=== PATIENT | male | born 1955 | race Caucasian/White ===

== ENCOUNTER → 2016-12-02 | Outpatient (CLI) | payer OTHER ==
[~2016-12-02] MED LIST: ATRINS INH; ATV5X PO; CRDCD120 PO; DESL1TAB5 PO; DILT120C68 PO; DOXY100C76 PO; DXY100 PO; FURO40TA3 PO; IPRA1AER2 INH; IPRASOL4 INH; LEVO-459 PO; OXGN; OXYC-57 PO; POTA10TA PO; SACC250C11 PO; SERT50TA PO; UMEC1AER INH; XPNINS1255 INH
[2016-12-02 15:03] LABS: ARTERIAL BLD GAS O2 SATURATION 93.9 % (90-95); ARTERIAL BLOOD GAS BASE EXCESS 6.9 mEq/L (-9-1.8); ARTERIAL BLOOD GAS HCO3 34 mmol/L (19-24); ARTERIAL BLOOD GAS PO2 72 mm/Hg (80-95); ARTERIAL BLOOD GAS pH 7.36 (7.35-7.45)
[2016-12-02 15:21] LABS: ALLEN TEST POS (POS); O2 ADMINISTRATION 2L
== END | disposition home or self-care (01) ==
LOC: C.LAB 13:59
PROVIDERS: ATTEND Registered Nurse
DX: J44.9 Chronic obstructive pulmonary disease, unspecified (principal); J96.11 Chronic respiratory failure with hypoxia; J96.12 Chronic respiratory failure with hypercapnia; R91.8 Other nonspecific abnormal finding of lung field

== ENCOUNTER → 2016-12-20 | Outpatient (CLI) | payer OTHER ==
--- NOTE | 2016-12-21 05:33 | PAP/PSG TECHNICIAN REPORT ---
[facility] Manager Zone Polysomnogram Report Study name: None Report date: 12/21/2016 Study date: 12/20/2016 Referring Physician: SANAM GONZALEZ Name: JOY MCKEON Interpreting Physician: Isaias Jordan M.D. Date of : 1955 Manager Zone: Sophia Gregory [facility]. Sex: Male Age: 61 Study Type: PSG Weight: 227 lbs Height: 61 years, Height 6' 4" BMI: 27.63 Medications: LORAZEPAM 1 MG, SERTRALINE 50 MG, DOXYCYCLINE MONOHYDRATE 100 MG, FUROSEMIDE 40 MG, ANORA ELLIPTA 62.5-25 MCG/INH, CARDIZEM 120 MG, PROBIOTIC, ATROVENT, LEVALBUTEROL 1.25 MG/3 ML, HUMIBID 600 MG, COMBIVENT RESPIMAT 20-100 MCG/ACT, POTASSIUM CHLORIDE 10 MEQ, O2 @ 2-3 LPM Patient History 61 yr-old male here for a baseline/split study. He has a history of severe COPD, SOB with minimal exertion, and nocturnal hypoxemia. His Rankin scale is 4. The test was started on 3 LPM O2. He had the head of the bed elevated in order to breathe more comfortably. ETCO2 testing is included in this study. Room 7 Parameters Monitored NPSG: E1-M2, E2-M1, Fp1-M2, Fp2-M1, F3-M2, F4-M2, F4-M1, C3-M2, C4-M2, C4-M1, O1-M2, O2-M2, O2-M1, T3-M2, T4-M1, P3-M2, P4-M1, CHIN1, CHIN2, HR, EKG, Legs, PFLOW, SNOR, FLOW, CFLOW, Tidal Volume, THOR, ABDO, SpO2, PLTH, CPRESS, ETCO2 Wave, ETCO2, pH Sleep Architecture Sleep Stages Time at Lights Off 9:07:04 PM STAGES Time (min.) TST (%) Time at Lights On 5:01:04 AM Wake 203.0 -- Total Recording Time (TRT) 474.00 min. N1 191.0 70 Total Sleep Period (TSP) 439.5 min. N2 74.5 27 Total Sleep Time (TST) 271.0min. N3 0.0 0 Awake Time 203.0 min. REM 5.5 2 Wake after Sleep Onset 170.5 min. Sleep Efficiency (SE) 57 % Sleep Onset Latency (EDGARDO) 32.5 min. Number of Stage 1 Shifts None Awakenings 63 Stage Changes 206 Number of REM periods 3 REM 5.5 2 REM Latency 364.5 min. NREM 265.5 98 Body Position Analysis Supine Right Left Side Prone Vertical Total Sleep Time (min.) 474.0 0.0 0.0 0.00 0.0 0.0 Total Sleep Time (%) 100% 0% 0% 0 0% N/A% Total Sleep Time REM (min.) 5.5 0.0 0.0 None 0.0 0.0 Total Sleep Time NREM (min.) 265.5 0.0 0.0 None 0.0 0.0 Intermittent Wake (min.) 203.0 0.0 0.0 None 0.0 0.0 Total Sleep Period (%) 100% None None None None None Arousals Myoclonus (PLM) * Events Count Index Events Count Index Spontaneous 136 30 Events Awake (PLMW) 110 32.5 Respiratory 16 3.8 Events Asleep w/ Arousal (PLMA) 31 6.9 PLM 31 7 Events Asleep w/o Arousal (PLMS) 146 32.3 Snoring 30 7 Total Asleep 177 39.2 Total 212 47 Total 287 36 Respiratory Analysis * CA OA MA CH H RERA Total Count 0 0 0 0 0 17 0 Index 0.0 0.0 0.0 0 0.0 4 3.8 Mean Duration 0.0 0.0 0.0 0.00 0.0 15.7 15.7 Longest Duration 0.0 0.0 0.0 0.00 0.0 18.2 18.2 Respiratory Event Summary Total Supine ~Supine Right Left Prone REM NREM Apneas Count 0 0 N/A N/A N/A N/A 0 0 Index 0.0 0 N/A N/A N/A N/A 0 0 Hypopneas (4% Desat) Count 0 0 N/A N/A N/A N/A 0 0 Index 0.0 0.0 N/A N/A N/A N/A 0.0 0.0 Apneas & All Hypopneas Count 0 0 N/A N/A N/A N/A 0 0 Index 0.0 0 N/A N/A N/A N/A 0.0 0.0 Respiratory Events (Box Sealing Machine Catcher+All Hyp+RERA) Count 0 17 N/A N/A N/A N/A 0 0 Index 3.8 4 N/A N/A N/A N/A 10.9 3.6 Respiratory Related Arousal Count 16 17 N/A N/A N/A N/A 1 16 Index 3.8 4 N/A N/A N/A N/A 11 4 Snoring Analysis Supine Right Left Prone REM NREM Total Snore duration 10.6 min Snores count 537 N/A N/A N/A 5 532 537 Snore mean duration 1.2 Sec Snores index 119 N/A N/A N/A 54.5 120.2 118.9 TST with snoring (%) 3.9% SpO2 Analysis Total REM NREM Awake <50% 0.0 min. 0.0 min. 0.0 min. 0.0 min. 51 - 60% 0.0 min. 0.0 min. 0.0 min. 0.0 min. 61 - 70% 0.0 min. 0.0 min. 0.0 min. 0.0 min. 71 - 80% 2.6 min. 0.0 min. 0.9 min. 1.7 min. 81 - 90% 24.3 min. 2.9 min. 8.6 min. 12.8 min. 91 - 100% 404.1 min. 2.6 min. 255.2 min. 146.4 min. Average 93 89 93 93 Minimum SpO2 71 85 71 71 Desaturation Event Index 1.3 0.0 0.7 2.1 # Desat. Events below 89% 1 N/A N/A 1 Time(%) with Saturation below 89% 2.5 0.4 0.7 1.4 Time(min.) with Saturation below 89% 10.9 1.9 2.9 6.1 Heart Rate Analysis End Tidal CO2 Analysis Min (bpm) Max (bpm) Average (bpm) TSP (mins) % of TSP Awake 73 188 96 Above 55 mmHg 0.0 0.0 NREM 68 127 88 50-55 mmHg 0.0 0.0 REM 71 93 81 45-50 mmHg 4.9 1.8 Overall 68 127 88 40-45 mmHg 10.7 3.9 35-40 mmHg 21.6 8.0 30-35 mmHg 74.2 27.4 Average ETCO2 0.1 Supplemental O2 Values Minimum O2 level: None Value Start Time End Time Manager Zone Comments Mr. Mckeon slept in the supine position with his head elevated. Cardiac arrhythmias were noted (please refer to the printout) PLMs were noted. No bruxism noted. Snoring was noted and scored as a 1-2 on a scale of 1 through 5. (0=no snoring, 5=snoring loud enough to be heard through a closed door or down the oro way) He did not meet specific Split-Night criteria during the diagnostic portion of this study. He awoke to use the restroom four times during the night. Mr. Mckeon stated that he slept about the same as usual. The final report will be interpreted and signed by a sleep physician. The completed physician report will then be placed in the patient medical record. His study was started on 3 LPM O2. He currently uses 3 LPM O2 at bedtime, and did not want to go without it. He was short of breath with any kind of movement. Therapy (cm H2O) 0 TIB (min.) 474.0 TST (min.) 271.0 Sleep Onset (min.) 32.5 REM Onset From Sleep (min.) 364.5 Sleep Efficiency % 57 Wakefulness (%) 43 Wakefulness (min.) 203.0 NREM 1 (%) 70 NREM 1 (min.) 191.0 NREM 2 (%) 27 NREM 2 (min.) 74.5 NREM 3 (%) 0 NREM 3 (min.) 0.0 REM (%) 2 REM (min.) 5.5 # Arousals 212 Arousal Index 47 # Snore 537 Snore Index 118.9 AHI 0.0 AHI Supine 0 AHI Non-Supine N/A NREM AHI 0.0 REM AHI 0.0 RDI 3.8 # Obstructive Apnea 0 # Central Apnea 0 # Mixed Apnea 0 # Hypopneas 0 RERAs 17 Total Respiratory Events 18 Time Below SpO2 89% (min.) 4.9 Mean NREM SpO2 (%) 93 Mean REM SpO2 (%) 89 Mean Sleep SpO2 (%) 93 Min NREM SpO2 (%) 71 Min REM SpO2 (%) 85 Position Supine (min.) 474.0 Position Non-supine (min.) 0.0 LM Index Sleep 39.2 LM Index NREM 38.9 LM Index REM 54.5 Mean Heart Rate (bpm) 88 Min Heart Rate (bpm) 68
--- NOTE | 2016-12-26 11:46 | POLYSOMNOGRAPH REPORT ---
REFERRING PERSON: Ariadna Mcfadden. INTERPRETING PHYSICIAN: Dr. Isaias Jordan. DIRECTOR CHILD ABUSE THERAPY: Sophia Gregory. Mr. Kennedy is a 61-year-old male sent for a baseline split night sleep study. He has a history of severe COPD, shortness of breath with minimal exertion, as well as nocturnal hypoxemia. He currently uses 3 liters of oxygen continuously and will be tested on 3 liters of oxygen tonight. The head of his bed is also elevated to help him breathe more comfortably. The [place] sleepiness scale score on the evening of this study is 4. BMI is 27.63. Following the technical and digital specifications of the [employer] (AASM) a standard diagnostic polysomnogram was performed monitoring EEG, EOG, EMG (chin and leg deviations), oxygen saturation, body position, digital video, respiratory effort and airflow. The sleep Stage and event scoring was based on the AASM Manual for the Scoring of Sleep and Associated Events 2007 edition. Apneas are defined as a drop in the peak thermal sensor excursion by >90% of baseline for at least 10 seconds. Hypopneas were scored using the 4% oxygen desaturation rule (4A-[employer]) and a decrease in the nasal pressure excursions by >30% of baseline for at least 10 seconds. Respiratory effort-related arousal (RERA's) is defined as a sequence of breaths lasting at least 10 seconds characterized by increasing respiratory effort or flattening of the nasal pressure waveform leading to an arousal from sleep when the sequence of breaths does not meet criteria for an apnea or hypopnea. Apnea Hypopnea index (AHI) is defined as the number of apneas and hypopneas occurring in an hour of sleep. Respiratory disturbance index (RDI) is defined as the number of apneas, hypopneas, and RERA's occurring in an hour of sleep. Mr. Kennedy's total sleep period time was 439.5 minutes. Total sleep time was 271 minutes. Sleep efficiency was 57%. Latency to sleep onset was 32.5 minutes. Wake after sleep onset was 170.5 minutes. Total non-REM sleep time was 265.5 minutes. He spent 70% of that time in N1 sleep, 27% in N2 sleep and no time in N3 sleep. This is abnormal non-REM sleep architecture with a propensity for superficial sleep. REM latency was 364.5 minutes. Total REM sleep time was only 5.5 minutes or 2% of total sleep time. There were 212 cortical arousals from sleep. 136 of these arousals were spontaneous, 16 were due to respiratory events, 31 due to periodic limb movements of sleep and 30 were due to snoring. There were 177 periodic limb movements noted on this test. Limb movement index was 39.2; however, limb movement with arousal index was only 6.9. There were no central obstructive or mixed apneas on this test. There were 17 RERA and no hypopnea. Apnea-hypopnea index was 0 on 3 liters of oxygen. There were 537 snoring events recorded. Total sleep time with snoring was 3.9%. Mean saturation on this study was 93% with desaturations to 71%, but most of these desaturations below 89% appeared to be artifactual. Desaturations were recorded as less than 89% on 3 liters for 10.9 minutes. Again, I believe most of this to be artifactual. PACs and PVCs were noted on EKG monitoring. Heart rates ranged from a low of 68 beats per minute to a high of 127 beats per minute during sleep. End-tidal CO2 data was inaccurate and incomplete. IMPRESSION AND PLAN: Mr. Kennedy is a 61-year-old male who on 3 liters of oxygen, does not have sleep disordered breathing, parasomnia, clinically significant periodic limb movements of sleep or bruxism. He does have some mild nocturnal hypoxemia which on 3 liters I believe to be artifactual. It does appear that 3 liters does keep his saturations above 89%.
== END | disposition home or self-care (01) ==
LOC: C.NEUR 20:00
PROVIDERS: ATTEND Family Medicine
DX: J44.9 Chronic obstructive pulmonary disease, unspecified (principal); G47.36 Sleep related hypoventilation in conditions classified elsewhere; Z99.81 Dependence on supplemental oxygen

== ENCOUNTER 2017-05-24 10:28 | Day surgery (SDC) | payer OTHER ==
[2017-05-18 08:21] VITALS: BMI 29.0
--- NOTE | 2017-05-18 09:03 | PAT Medication Instructions ---
Service Date May 18, 2017. Current Home Medication List Desloratadine (Desloratadine), 5 MG PO QAM Diltiazem Hcl Ext Rel (Tiazac), 120 MG PO BID Doxycycline Monohydrate (Monodox), 100 MG PO QAM Furosemide (Lasix), 40 MG PO QAM Home O2 Therapy (Oxygen), 2 LITERS NA CONTINOUS Ipratropium Aultman (Ipratropium Aultman), 0.5 MG INH Q4H PRN for Shortness of Breath Ipratropium-Albuterol (Combivent Respimat), 1 PUFFS INH QID PRN for SOB/Wheezing Ipratropium-Albuterol (Duoneb), 1 TREATMENT INH Q4H PRN for SOB/Wheezing Lorazepam (Lorazepam), 0.5 MG PO QID PRN for Anxiety Potassium Chloride (K-Tabs), 10 MEQ PO QAM Saccharomyces Boulardii (Probiotic), 1 CAP PO QAM Sertraline (Zoloft), 50 MG PO HS Umeclidinium-Vilanterol (Anoro Ellipta 62.5-25 Mcg/INH), 1 PUFF INH QAM Medication Instructions For Your Scheduled Surgery - Hold the following medications the morning of surgery: Saccharomyces Boulardii (Probiotic), 1 CAP PO QAM Potassium Chloride (K-Tabs), 10 MEQ PO QAM Furosemide (Lasix), 40 MG PO QAM Desloratadine (Desloratadine), 5 MG PO QAM - Take the following medications the morning of surgery with a sip of water: Umeclidinium-Vilanterol (Anoro Ellipta 62.5-25 Mcg/INH), 1 PUFF INH QAM Ipratropium-Albuterol (Combivent Respimat), 1 PUFFS INH QID PRN for SOB/ Wheezing (if needed) Ipratropium-Albuterol (Duoneb), 1 TREATMENT INH Q4H PRN for SOB/Wheezing (if needed) Lorazepam (Lorazepam), 0.5 MG PO QID PRN for Anxiety (if needed) Ipratropium Aultman (Ipratropium Aultman), 0.5 MG INH Q4H PRN for Shortness of Breath (if needed) Home O2 Therapy (Oxygen), 2 LITERS NA CONTINOUS (if needed) Diltiazem Hcl Ext Rel (Tiazac), 120 MG PO BID Doxycycline Monohydrate (Monodox), 100 MG PO QAM (for lymphedema) - Take the following medications as scheduled the night before surgery: Sertraline (Zoloft), 50 MG PO HS Ipratropium-Albuterol (Combivent Respimat), 1 PUFFS INH QID PRN for SOB/ Wheezing (if needed) Ipratropium-Albuterol (Duoneb), 1 TREATMENT INH Q4H PRN for SOB/Wheezing (if needed) Lorazepam (Lorazepam), 0.5 MG PO QID PRN for Anxiety (if needed) Ipratropium Aultman (Ipratropium Aultman), 0.5 MG INH Q4H PRN for Shortness of Breath (if needed) Home O2 Therapy (Oxygen), 2 LITERS NA CONTINOUS (if needed) If you have any questions please call us at [phone] or [phone] or [phone]
--- NOTE | 2017-05-18 11:03 | DIAGNOSTIC IMAGING REPORT ---
CHEST PREADMISSION(PA/LAT) HISTORY: Preop. COMPARISON: Chest 06/12/2016. Chest 06/03/2016. FINDINGS: Emphysema. No pneumothorax. Stable blunting of the bilateral costophrenic sulci. This may be due to the hyperexpanded lungs. Stable 1.2 cm left midlung zone nodular density. The heart is normal in size. The right lung remains clear. IMPRESSION: 1. No acute process within the chest. 2. Severe emphysema. 3. Stable 1.2 cm nodular density within the left midlung zone. This demonstrates one-year stability. An additional 6 month follow-up chest CT is recommended to ensure stability. Electronically signed by: Ravinder Dyson M.D. 05/18/2017 11:02 AM Dictated Date/Time: 05/18/2017 10:59 AM
[~2017-05-24] VITALS: Ht 193 cm; Wt 109.5 kg
[~2017-05-24 10:28] MED LIST changes: +CEFAZOLIN 2000 MG/60 ML D5W IV SCH; -CRDCD120 PO; -DXY100 PO; +LACTATED RINGER'S 1000ML 1,000 ML IV SCH; -LEVO-459 PO; -OXYC-57 PO; -XPNINS1255 INH
--- NOTE | 2017-05-24 11:05 | History & Physical Bridge Note ---
H&P Re-Evaluation Bridge Note: I have examined the patient, reviewed the History & Physical and in the interval since the performance of the History & Physical I have noted the following changes of clinical significance: No changes noted
[2017-05-24 11:11] VITALS: BP 125/80; PULSE 95; TEMP 36.7; O2SAT 98; Ht 193 cm; Wt 109.5 kg
[2017-05-24] MEDS ORDERED: BACITRACIN OINT 15 GM TUBE ONE (11:23)
[2017-05-24] MEDS ORDERED: LIDOCAINE HCL 1% 20 ML VIAL ONE (11:23)
[2017-05-24] MEDS ORDERED: BUPIVACAINE 0.5 % 5 MG/1 ML MPF 30ML VIAL ONE (11:23)
[2017-05-24] MEDS ORDERED: LIDOCAINE HCL 2% 2 ML VIAL (20MG/ML) ONE (11:30)
[2017-05-24] MEDS ORDERED: MIDAZOLAM HCL 1 MG/ML 2ML VIAL ONE (11:30)
[2017-05-24] MEDS ORDERED: FENTANYL CITRATE INJ 50 MCG/1 ML 2 ML VIAL ONE (11:30)
[2017-05-24] MEDS ORDERED: PROPOFOL IV EMULSION 10 MG/ML 20 ML VIAL IV ONE (11:30)
[2017-05-24] MEDS ORDERED: KETAMINE HCL INJ 50 MG/ML 10 ML VIAL ONE (11:31)
[2017-05-24] MEDS ORDERED: ATROPINE SULFATE 0.1 MG/ML 5ML SYR IV PRN (13:15)
[2017-05-24] MEDS ORDERED: FLUMAZENIL 0.1 MG/1 ML 10 ML VIAL IV PRN (13:15)
[2017-05-24] MEDS ORDERED: ONDANSETRON INJ 2 MG/ML 2 ML VIAL IV PRN ×2 (13:15→13:30)
[2017-05-24] MEDS ORDERED: NALOXONE HCL 0.4 MG/1 ML VIAL/CARP IV PRN (13:15)
[2017-05-24] MEDS ORDERED: FENTANYL CITRATE INJ 50 MCG/1 ML 2 ML VIAL IV PRN (13:15)
[2017-05-24] MEDS ORDERED: PROMETHAZINE HCL INJ 12.5 MG in SODIUM CHLORIDE 0.9% 50ML 50 ML IV PRN (13:15)
[2017-05-24] MEDS ORDERED: EpHEDrine SULFATE INJ 50 MG/ML AMP IV PRN (13:15)
[2017-05-24] MEDS ORDERED: LABETALOL HCL IV 5 MG/ML 20ML IV PRN (13:15)
[2017-05-24] MEDS ORDERED: SODIUM CHLORIDE 0.9% INJ 10 ML VIAL ONE (13:17)
[2017-05-24] MEDS ORDERED: ONDANSETRON INJ 2 MG/ML 2 ML VIAL ONE (13:18)
[2017-05-24] MEDS ORDERED: OXYC-57 PO (13:19)
--- NOTE | 2017-05-24 13:20 | [facility] Post Operative Brief Note ---
Immediate Operative Summary Operative Date May 24, 2017. Pre-Operative Diagnosis Right inguinal hernia Post-Operative Diagnosis Right inguinal hernia Procedure(s) Performed Open Repair Right Inguinal Hernia with Mesh Surgeon Paresh Sand Technician Surgeon(s) Barbara Weston PA-C Estimated Blood Loss 10CC Findings right indirect inguinal hernia Fluids (cc crystalloids) 600ml Specimens A: Lipoma Drains none Anesthesia sedation + local Complication(s) None Disposition Recovery Room / PACU
--- NOTE | 2017-05-24 13:23 | Discharge Instructions ---
Discharge Instructions Date of Service May 24, 2017. Admission Reason for Admission: Right Inguinal Hernia Discharge Discharge Diagnosis / Problem: Right inguinal hernia Discharge Goals Goal(s): Decrease discomfort Activity Recommendations Activity Limitations: as noted below No heavy lifting over 10 pounds for 4-6 weeks, until cleared by surgeon No strenuous activity until cleared by surgeon No driving while taking narcotic pain medication No submerging incision underwater for 2 weeks . Instructions / Follow-Up Instructions / Follow-Up You may shower in 3 days, remove dressing and then shower. Sponge bath in the meantime leave steri strips on incision for 10 days, they may fall off before that is okay Take Percocet as needed for pain, you may take extra strength Ibuprofen as needed, DO NOT take Tylenol with the Percocet as it has Tylenol in it. Follow-up with Dr. Yoder in 1 week, please call office at [phone] if you do not already have an appointment Current Hospital Diet Patient's current hospital diet: Discharge Diet Recommended Diet: Regular Diet Procedures Procedures Performed: Open Repair Right Inguinal Hernia with Mesh Pending Studies Studies pending at discharge: no Medical Emergencies . Who to Call and When: Medical Emergencies: If at any time you feel your situation is an emergency, please call 911 immediately. . Non-Emergent Contact Non-Emergency issues call your: Primary Care Provider, Surgeon Call Non-Emergent contact if: you have a fever, temperature is above 101.5, your pain is not controlled, your pain is worsening, wound has increased drainage, wound has increased redness, wound has increased pain . "Provider Documentation" section prepared by Katya Weston. . VTE Core Measure Inpt VTE Proph given/why not?: Contraindicated (edema of LE) [place] Drug Monitoring Program Search Results: patient reviewed within database, no issues identified
[2017-05-24] MEDS ORDERED: MoRPHine SULFATE 2 MG/ML CARP IV PRN ×2 (13:30)
[2017-05-24] MEDS ORDERED: OXYCODONE/ACETAMINOPHEN 5-325 TAB PO PRN (13:30)
[2017-05-24] MEDS ORDERED: MoRPHine SULFATE 4 MG/ML 1 ML CARP\\VIAL IV PRN (13:30)
--- NOTE | 2017-05-24 13:35 | Anesthesiology Progress Note ---
Anesthesia Post Op Note Date & Time May 24, 2017 at 13:35 Vital Signs Pain Intensity: 0 Vital Signs Past 12 Hours Date Time Temp Pulse Resp B/P (MAP) Pulse Ox O2 Delivery O2 Flow Rate FiO2 05/24/17 13:25 87 16 132/94 100 Oxymask 5 05/24/17 13:18 36.5 93 16 146/84 100 Oxymask 10 05/24/17 11:11 36.7 95 12 125/80 98 Nasal Cannula 3 Notes Mental Status: alert / awake / arousable, participated in evaluation Pt Amnestic to Procedure: Yes Nausea / Vomiting: adequately controlled Pain: adequately controlled Airway Patency, RR, SpO2: stable & adequate BP & HR: stable & adequate Hydration State: stable & adequate Anesthetic Complications: no major complications apparent
[2017-05-24 13:40] VITALS: BP 122/74; PULSE 92; TEMP 36.5; O2SAT 91
--- NOTE | 2017-05-24 13:44 | [facility] Operative Report ---
Operative Report Operative Date May 24, 2017. Pre-Operative Diagnosis Right inguinal hernia Post-Operative Diagnosis right indirect inguinal hernia, recurrent Procedure(s) Performed open repair right inguinal hernia with mesh Surgeon Paresh Clocksmith Surgeon(s) Barbara Weston PA-C Estimated Blood Loss 10CC Findings right indirect inguinal hernia Fluids 600ml Specimens A: Lipoma Drains none Anesthesia sedation + local Complication(s) None Disposition Recovery Room / PACU Indications This is a 62 years old gentleman who presented right inguinal recurrent hernia. patient required with a right inguinal hernia repair the hernia, I tolk to patient about benefits, risks and alternatives of the procedure, the risks may include but not limit such as , infection, bleeding, hernia recurrence, chronically incision pain event , patient understands, he signed informed consent, I answered all questions. Description of Procedure Waveform patient was or with the patient on Rocephin position, and patient will receive a SCDon bilateral life to prevent DVT, patient received 2 gm Ancef IV for prophylactic antibiotic, patient received a sedation by his anesthesiology, the lower abdomen was appropriate prep and dripper in normal fashion, after timeout I injections of local anesthesia by using 1% lidocaine increases 0.5% Marcaine around the right inguinal area, make the incision thought to 4 cm (of skin subcutaneous tenderness and there exposes the external fashion and open external and then mobilized the cord structure with the patient newly found the patient had indirect inguinal hernia, hernia sac was immobilized reducible back resection one cord lipoma, now I using large pluger to block the hernia, then I using 3x 5 cm mesh to reinforce the posterior wall using 2-0 Prolene mesh was inguinal ligament to mesh, in the median mesh was conjoined tendon muscle continual running 2-0 suture , the hemostatic was obtained, I close external fascial layer using 2-0 suture continue on subcutaneous layer was closed by 2-0 suture, close skin by 4-0 suture, put the dressing on, the patient tolerated procedure well ,I talk to patient's family member about the OR found and the procedure I did, she understand , patient transported to recovery room in stable condition. all instrument and sponze and needles count correct time 2. I attest to the content of the Intraoperative Record and any orders documented therein. Any exceptions are noted below.
[2017-05-24 14:15] VITALS: BP 122/79; PULSE 88; O2SAT 91
[2017-05-24 14:50] VITALS: BP 136/76; PULSE 88; TEMP 36.2; O2SAT 90
[2017-05-24] MEDS ORDERED: OXYCODONE/ACETAMINOPHEN 5-325 TAB ONE (15:15)
[2017-05-24 15:35] VITALS: BP 132/86; PULSE 91; TEMP 36.3; O2SAT 93
[2017-05-25] MEDS ORDERED: CEFAZOLIN IV 2,000 MG/60 ML D5W IV ONE (06:00)
== END 2017-05-24 15:47 | disposition home or self-care (01) ==
LOC: C.ACU 10:28
PROVIDERS: ATTEND Surgery
DX: K40.91 Unilateral inguinal hernia, without obstruction or gangrene, recurrent (principal); D17.6 Benign lipomatous neoplasm of spermatic cord; I47.1 Supraventricular tachycardia; J96.11 Chronic respiratory failure with hypoxia; J44.9 Chronic obstructive pulmonary disease, unspecified; F41.8 Other specified anxiety disorders; Z87.891 Personal history of nicotine dependence; Z77.090 Contact with and (suspected) exposure to asbestos; Z99.81 Dependence on supplemental oxygen; Z79.899 Other long term (current) drug therapy

== ENCOUNTER 2017-11-15 19:14 | Inpatient (IN) | payer OTHER ==
[~2017-11-15] VITALS: Ht 182.9 cm; Wt 106.8 kg
[~2017-11-15 19:14] MED LIST changes: -CEFAZOLIN 2000 MG/60 ML D5W IV SCH; -LACTATED RINGER'S 1000ML 1,000 ML IV SCH; +OXYC-57 PO
[2017-11-15] MEDS ORDERED: ALBUT/IPRATROP 3MG/0.5MG NEB 3 ML VIAL INH STA ×2 (19:31→21:39)
[2017-11-15] MEDS ORDERED: METHYLPREDNISOLONE 125 MG VIAL IV STA (19:31)
[2017-11-15 19:57] LABS: BASO % 0.1 %; BASO ABS # 0.01 K/uL (0-0.2); EOS % 0.1 %; EOS ABS # 0.01 K/uL (0-0.5); HEMATOCRIT 44.9 % (42-52); HEMOGLOBIN 13.8 g/dL (14.0-18.0); IG# 0.03 K/uL (0.00-0.02); LYMPH % 6.4 %; LYMPH ABS # 0.74 K/uL (1.2-3.4); MEAN CELL VOLUME 96.6 fL (80-100); MEAN CORPUSCULAR HEMOGLOBIN 29.7 pg (25-34); MEAN CORPUSCULAR HGB CONC 30.7 g/dl (32-36); MONO % 6.1 %; MONO ABS # 0.71 K/uL (0.11-0.59); NEUT ABS # 10.15 K/uL (1.4-6.5); PLATELET COUNT 130 K/uL (130-400); RED CELL DISTRIBUTION WIDTH CV 13.2 % (11.5-14.5); RED CELL DISTRIBUTION WIDTH SD 46.1 fL (36.4-46.3); WHITE BLOOD COUNT 11.65 K/uL (4.8-10.8)
[2017-11-15] MEDS ORDERED: DILT120C43 PO (19:57)
[2017-11-15] MEDS ORDERED: ZLF/50 PO (19:57)
[2017-11-15] MEDS ORDERED: DOXY100C2 PO (19:57)
[2017-11-15] MEDS ORDERED: PROB1TAB16 PO (20:04)
[2017-11-15] MEDS ORDERED: POTA-74 PO (20:08)
[2017-11-15] MEDS ORDERED: FRS/40 PO (20:08)
[2017-11-15 20:29] LABS: ALBUMIN 3.2 gm/dl (3.4-5.0); ALKALINE PHOSPHATASE 85 U/L (45-117); ALT/SGPT 25 U/L (12-78); AST/SGOT 19 U/L (15-37); BLOOD UREA NITROGEN 16 mg/dl (7-18); CALCIUM 8.9 mg/dl (8.5-10.1); CARBON DIOXIDE 39 mmol/L (21-32); CKMB 3.1 ng/ml (0.5-3.6); CREATININE 0.83 mg/dl (0.60-1.40); GLUCOSE 109 mg/dl (70-99); POTASSIUM 4.1 mmol/L (3.5-5.1); SODIUM 138 mmol/L (136-145); TOTAL PROTEIN 7.1 gm/dl (6.4-8.2)
--- NOTE | 2017-11-15 20:43 | DIAGNOSTIC IMAGING REPORT ---
SINGLE VIEW CHEST CLINICAL HISTORY: Dyspnea. FINDINGS: 2 AP, portable, upright chest radiograph are compared to study dated 05/18/2017 and correlated with chest CT dated 06/03/2016. The cardiomediastinal silhouette is unremarkable. There is atherosclerotic calcification of the thoracic aorta. Advanced emphysema and chronic interstitial thickening are similar to previous. There is no evidence of superimposed pneumonia or large pleural effusion. A nodular density in the left upper lung is unchanged to slightly increased in size from previous. There is no pneumothorax. The skeletal structures are osteopenic. The bony thorax appears intact. IMPRESSION: 1. Advanced emphysema with no acute cardiopulmonary abnormality. 2. A nodular density in the left midlung is unchanged to slightly increased in size from previous. Follow-up with a nonemergent repeat chest CT is recommended for reassessment. Electronically signed by: Eduardo Garcia M.D. 11/15/2017 8:41 PM Dictated Date/Time: 11/15/2017 8:39 PM
[2017-11-15] MEDS ORDERED: ONDANSETRON INJ 2 MG/ML 2 ML VIAL IV PRN (22:45)
[2017-11-15] MEDS ORDERED: LEVALBUTEROL/IPRATROPIUM NEB INH PRN (22:45)
[2017-11-15] MEDS ORDERED: NITROGLYCERIN 0.4 MG SL PER TAB CHARGE SL PRN (23:00)
[2017-11-15] MEDS ORDERED: VANCOMYCIN CONSULT ACTIVE PRN (23:04)
[2017-11-15] MEDS ORDERED: LEVALBUTEROL 0.63MG/3 ML NEB INH PRN (23:30)
--- NOTE | 2017-11-15 23:39 | History and Physical ---
History & Physical Date & Time of Service: Nov 15, 2017 at 23:06 Chief Complaint: Lipedemia, Sob Primary Care Physician: Uriel Jiménez MD History of Present Illness Source: patient, clinic records, hospital records Pt is 62 y/o M with PMH COPD on O2 2-3L, lymphedema, depression/anxiety presented to ER with c/o increased SOB and increased LE edema past couple of days. Pt with hx lymphedema bilateral lower extremities. Reports chronic redness , thinks area looks a little more red. Past 2 days noticed clear drainage from bilateral legs. On daily doxycycline for suppressive therapy with hx cellulitis LE in past. He hasn't used his lasix 40mg past couple of days as urinating more often. Thinks he has gained weight. Pt states SOB with few steps while wearing O2 at 3L and feels some wheezing. Reports using his nebulizer treatments 1-2 times day past 2 days (typically uses less than once a month). Reports using his ellipta. Took one prednisone 20mg yesterday from his rescue pack. Typically sleeps with 3 pillows, denies PND. Hx chronic slight cough of white sputum, denies increased cough or changes in sputum production or color. Reports receiving influenza vaccine this season. Denies fever/chills, diaphoresis, N/V/D /C, OLIVO, dizziness, syncope, vision changes, neck pain, CP, palpitations, hemoptysis, sore throat, choking, abdominal pain, paresthesias, weakness, other rashes, hematuria, dysuria. In ER pt afebrile, WBC: 11. Resp: 24 down to 20, 96% on 3L with rest, decreases to 88% on 3L with exertion. CXR: emphysema, no infiltrate. Pt given solumedrol 125mg IV, 2 duoneb treatment. Past Medical/Surgical History Medical Problems: (1) Asbestos exposure Status: Chronic (2) COPD (chronic obstructive pulmonary disease) Status: Chronic (3) History of tobacco abuse Status: Chronic (4) Pneumothorax Status: Resolved Surgical Problems: (1) H/O colonoscopy Status: Chronic (2) H/O knee surgery Status: Chronic (3) Hx of inguinal hernia repair Permanent Comment: 05/2017 - Right inguinal hernia repair - DR Yoder Status: Resolved (4) pleurodesis Status: Chronic Family History FH: cancer Lung disease Stroke Social History Smoking Status: Former Smoker (Quit 2010, smoked 1ppd x 38 years) Smokeless Tobacco Use: No Alcohol Use: 3 beers every couple months Marital Status: single Housing status: lives alone Occupational Status: disabled Allergies Coded Allergies: No Known Allergies (Unverified , 05/18/17) Home Medications Scheduled Desloratadine (Desloratadine), 5 MG PO QAM Diltiazem Hcl Coated Beads (Cartia Xt), 120 MG PO BID Doxycycline Hyclate (Vibramycin), 100 MG PO DAILY Home O2 Therapy (Oxygen), 2 LITERS NA CONTINOUS Probiotic Product (Probiotic), 1 TAB PO DAILY Sertraline HCl (Sertraline HCl), 50 MG PO HS Umeclidinium-Vilanterol (Anoro Ellipta 62.5-25 Mcg/INH), 1 PUFF INH QAM Scheduled PRN Furosemide (Lasix), 40 MG PO DAILY PRN for Edema Ipratropium-Albuterol (Combivent Respimat), 1 PUFF INH QID PRN for Cough/SOB or Wheezing Ipratropium-Albuterol (Duoneb), 1 TREATMENT INH TID PRN for SOB/Wheezing Lorazepam (Lorazepam), 0.5 MG PO TID PRN for Anxiety/Shortness Of Breath Potassium Chloride (Potassium Chloride Er), 10 MEQ PO DAILY PRN for If Lasix Taken Review of Systems Constitutional: No fever, No chills, No sweats Eyes: No eye pain, No redness, No discharge ENT: + nasal symptoms (chronic rhinorrhea, denies worsening), No unusual epistaxis, No sore throat, No trouble swallowing Respiratory: + problem reported (see HPI) Cardiovascular: + problem reported (see HPI) Abdomen: No pain, No nausea, No vomiting, No diarrhea, No constipation, No GI bleeding Musculoskeletal: + swelling (see HPI), No calf pain Genitourinary - Male: No hematuria, No dysuria, No urinary retention, No urinary incontinence Neurologic: No memory loss, No paralysis, No vertigo Endocrine: No excessive thirst Hematologic / Lymphatic: No clotting problems, No night sweats Physical Exam Vital Signs Date Time Temp Pulse Resp B/P (MAP) Pulse Ox O2 Delivery O2 Flow Rate FiO2 11/15/17 21:48 93 16 148/104 97 Nebulizer 8.0 11/15/17 20:47 93 16 137/88 94 Nasal Cannula 3.0 11/15/17 20:25 95 16 138/100 100 Nasal Cannula 3.0 11/15/17 19:52 Nasal Cannula 3.0 11/15/17 19:52 Nasal Cannula 3.0 11/15/17 19:43 96 11/15/17 19:23 36.6 98 24 161/91 96 Nasal Cannula 3.0 General Appearance: WD/WN, + pertinent finding (+dyspnea with prolonged talking ) Head: normocephalic, atraumatic Eyes: normal inspection, PERRL, EOMI, sclerae normal ENT: hearing grossly normal, pharynx normal, + pertinent finding (mucous membranes moist) Neck: supple, no JVD, trachea midline Respiratory/Chest: chest non-tender, no accessory muscle use, + decreased breath sounds (throughout. +expiratory wheezing noted. no rales noted) Cardiovascular: regular rate, rhythm, no murmur Abdomen/GI: normal bowel sounds, non tender, soft Extremities/Musculoskelatal: normal capillary refill, + pertinent finding ( Bilateral lower extremities with lymphedema, very dry skin, +mild erythema lower extremities, no purulent discharge noted. limited ROM extremities) Neurologic/Psych: alert, normal mood/affect, oriented x 3 Skin: normal color, warm/dry, + pertinent finding (see extremities) Diagnostics Laboratory Results Results Past 24 Hours Test 11/15/17 19:25 Range/Units White Blood Count 11.65 4.8-10.8 K/uL Red Blood Count 4.65 4.7-6.1 M/uL Hemoglobin 13.8 14.0-18.0 g/dL Hematocrit 44.9 42-52 % Mean Corpuscular Volume 96.6 80-100 fL Mean Corpuscular Hemoglobin 29.7 25-34 pg Mean Corpuscular Hemoglobin Concent 30.7 32-36 g/dl Platelet Count 130 130-400 K/uL Mean Platelet Volume 9.0 7.4-10.4 fL Neutrophils (%) (Auto) 87.0 % Lymphocytes (%) (Auto) 6.4 % Monocytes (%) (Auto) 6.1 % Eosinophils (%) (Auto) 0.1 % Basophils (%) (Auto) 0.1 % Neutrophils # (Auto) 10.15 1.4-6.5 K/uL Lymphocytes # (Auto) 0.74 1.2-3.4 K/uL Monocytes # (Auto) 0.71 0.11-0.59 K/uL Eosinophils # (Auto) 0.01 0-0.5 K/uL Basophils # (Auto) 0.01 0-0.2 K/uL RDW Standard Deviation 46.1 36.4-46.3 fL RDW Coefficient of Variation 13.2 11.5-14.5 % Immature Granulocyte % (Auto) 0.3 % Immature Granulocyte # (Auto) 0.03 0.00-0.02 K/uL Sodium Level 138 136-145 mmol/L Potassium Level 4.1 3.5-5.1 mmol/L Chloride Level 95 98-107 mmol/L Carbon Dioxide Level 39 21-32 mmol/L Anion Gap 4.0 3-11 mmol/L Blood Urea Nitrogen 16 7-18 mg/dl Creatinine 0.83 0.60-1.40 mg/dl Est Creatinine Clear Calc Drug Dose 129.0 ml/min Estimated GFR () 109.3 Estimated GFR (Non- 94.3 BUN/Creatinine Ratio 19.6 10-20 Random Glucose 109 70-99 mg/dl Calcium Level 8.9 8.5-10.1 mg/dl Total Bilirubin 0.3 0.2-1 mg/dl Aspartate Amino Transf (AST/SGOT) 19 15-37 U/L Alanine Aminotransferase (ALT/SGPT) 25 12-78 U/L Alkaline Phosphatase 85 45-117 U/L Total Creatine Kinase 68 39-308 U/L Creatine Kinase MB 3.1 0.5-3.6 ng/ml Creatine Kinase MB Ratio 4.6 0-3.0 Troponin I < 0.015 0-0.045 ng/ml Pro-B-Type Natriuretic Peptide 110 0-900 pg/ml Total Protein 7.1 6.4-8.2 gm/dl Albumin 3.2 3.4-5.0 gm/dl Globulin 3.9 2.5-4.0 gm/dl Albumin/Globulin Ratio 0.8 0.9-2 Diagnostic Radiology CXR: IMPRESSION: 1. Advanced emphysema with no acute cardiopulmonary abnormality. 2. A nodular density in the left midlung is unchanged to slightly increased in size from previous. Follow-up with a nonemergent repeat chest CT is recommended for reassessment. EKG EKG: poor quality EKG. sinus rhythm rate 92 Impression Assessment and Plan SOB/HYPOXIA/CHRONIC RESPIRATORY FAILURE COPD exacerbation vs bronchitis vs volume overload, suspect COPD exacerbation at this time. Pt afebrile. CXR: no infiltrate, WBC: 11. negative troponin. BNP: 110. O2 sats:90's on 3L NC drops with exertion. -repeat EKG as initial poor quality -obtain ABG -influenza swab -MRSA swab -blood cultures pending -Xopenex/Atrovent nebs -Levaquin po -Solumedrol 40mg IV Q6H -continue ellipta -O2 per protocol -Lasix 40mg IV bid -continue home po potassium -continue cartia -echo -pulmonology consult -repeat CBC, PRP, mag in am LE EDEMA Pt with chronic lymphedema BLE, hasn't been taking lasix past couple of days. Lymphedema vs volume overload vs cellulitis -vancomycin to cover cellulitis at this time -lasix IV -u/s LE r/o DVT -wound care nurse consult DEPRESSION/ANXIETY -continue zoloft -continue ativan prn anxiety DVT PROPHYLAXIS -lovenox DISPOSITION -admit tele -Full Code as per discussion with pt -Follows with Dr Jiménez for routine care Pt was seen with Dr Nelson. See addendum ATTENDING ADDENDUM delayed entry date of serices as noted above care coordinated with MIRTA Murray please refer to her notes for full details, I agree with her notes patient seen and examined, records reviewed by myself as well on exam, patient seen resting in bed, states breathing is improving no leg pain no other symptoms VS noted and reviewed oriented x 3, not in distress, speaks in sentences with no effort nor accessory muscle use normal rate, regular rhythm, no murmurs faint wheeze bilaterally non distended, soft, nontender (+) significant lower extremity edema, with moderate erythema on the lower distal aspect no neuro deficits WBC 11.6 Crea 0.83 ASSESSMENT/PLAN> ACUTE ON CHRONIC HYPOXIC RESPIRATORY FAILURE COPD EXACERBATION ACUTE BRONCHITIS - solumedrol, levaquin, nebs Pulm consulted ACUTE ON CHRONIC LOWER EXTREMITY EDEMA POSSIBLE CELLULITIS - Vancomycin IV Lasix other diagnoses and plan of care as per MIRTA Murray notes Rigo Nelson MD Level of Care Telemetry Resuscitation Status FULL RESUSCITATION VTE Prophylaxis VTE Risk Assessment Done? Y/N: Yes Risk Level: Moderate Given or contraindicated: Enoxaparin (Lovenox)SQ Additional Copies To Urile Jiménez MD
[2017-11-16] VITALS (15 sets, daily range): BP systolic 109–166; BP diastolic 71–89; PULSE 92–106; TEMP 36.3–36.9; O2SAT 88–97; Ht 182.9 cm; Wt 106.8 kg
[2017-11-16] MEDS ORDERED: VANCOMYCIN INJ 2,750 MG in SODIUM CHLORIDE 0.9% 500ML 500 ML IV SCH ×2
--- NOTE | 2017-11-16 00:23 | EMERGENCY ROOM VISIT NOTE ---
History Report prepared by [place]: Dayne Harkins Under the Supervision of: Dr. Jaime Urena M.D. First contact with patient: 19:21 Chief Complaint: SWELLING TO EXTREMITY Stated Complaint: LIPEDEMIA, SOB History of Present Illness The patient is a 62 year old male who presents to the Emergency Room with complaints of worsening lower extremity edema that started a week ago. He rates his discomfort as a 6/10 in severity. The patient states that he has a history of emphysema and lymphedema. He reports that he has been going to a physical therapist and has been using treatments, which he reports have worked. The patient states that he recently had a hernia and could not get any treatment for his lymphedema. He reports that since his hernia surgery, his legs have been swelling. The patient states that he noticed within the last week that his leg swellings and leaking have been worsening. He states that he also has been experiencing a mild cough and shortness of breath. The patient states that he used a nebulizer and Prednisone yesterday, but denies any relief of symptoms. He reports that he normally wears 2L of oxygen at home, but reports he has been increasing his oxygen level due to his symptoms. The patient states that he was not able to take his Lasix medication for the last couple of days because he has been constantly going to the bathroom. Per nursing, BLS tried to take the patient outside today, but he desaturated, which is why the patient was sent to the ED. He currently denies any chest pain and kidney pain. The patient reports a history of pneumothorax, which he had chest tube placement for, and pleurodesis. Source of History: patient Onset: a week ago Position: leg (bilateral) Symptom Intensity: 6/10 Quality: other (swelling) Timing: worsening Modifying Factors (Relieving): other (Prednisone, nebulizer) Associated Symptoms: + cough, + SOB, No chest pain Review of Systems See HPI for pertinent positives and negatives. A total of ten systems were reviewed and were otherwise negative. Past Medical & Surgical Medical Problems: (1) Asbestos exposure (2) Bronchitis (3) Cellulitis (4) COPD (chronic obstructive pulmonary disease) (5) COPD (chronic obstructive pulmonary disease) (6) COPD exacerbation (7) Emphysema of lung (8) History of tobacco abuse (9) Lymphedema (10) No known allergies (11) Pneumonia (12) Pneumothorax (13) Pneumothorax (14) SOB (shortness of breath) Surgical Problems: (1) H/O colonoscopy (2) H/O knee surgery (3) Hx of cholecystectomy (4) Hx of inguinal hernia repair (5) pleurodesis Family History FH: cancer Lung disease Stroke Social History Smoking Status: Never Smoker Marital Status: single Occupation Status: disabled Current/Historical Medications Scheduled Desloratadine (Desloratadine), 5 MG PO QAM Diltiazem Hcl Coated Beads (Cartia Xt), 120 MG PO BID Doxycycline Hyclate (Vibramycin), 100 MG PO DAILY Home O2 Therapy (Oxygen), 2 LITERS NA CONTINOUS Probiotic Product (Probiotic), 1 TAB PO DAILY Sertraline HCl (Sertraline HCl), 50 MG PO HS Umeclidinium-Vilanterol (Anoro Ellipta 62.5-25 Mcg/INH), 1 PUFF INH QAM Scheduled PRN Furosemide (Lasix), 40 MG PO DAILY PRN for Edema Ipratropium-Albuterol (Combivent Respimat), 1 PUFF INH QID PRN for Cough/SOB or Wheezing Ipratropium-Albuterol (Duoneb), 1 TREATMENT INH TID PRN for SOB/Wheezing Lorazepam (Lorazepam), 0.5 MG PO TID PRN for Anxiety/Shortness Of Breath Potassium Chloride (Potassium Chloride Er), 10 MEQ PO DAILY PRN for If Lasix Taken Allergies Coded Allergies: No Known Allergies (Unverified , 05/18/17) Physical Exam Vital Signs Date Time Temp Pulse Resp B/P (MAP) Pulse Ox O2 Delivery O2 Flow Rate FiO2 11/15/17 23:13 98 26 116/78 92 11/15/17 23:00 98 26 116/78 92 11/15/17 22:45 91 22 92 11/15/17 21:48 93 16 148/104 97 Nebulizer 8.0 11/15/17 20:47 93 16 137/88 94 Nasal Cannula 3.0 11/15/17 20:25 95 16 138/100 100 Nasal Cannula 3.0 11/15/17 19:52 Nasal Cannula 3.0 11/15/17 19:52 Nasal Cannula 3.0 11/15/17 19:43 96 11/15/17 19:23 36.6 98 24 161/91 96 Nasal Cannula 3.0 Physical Exam GENERAL: Awake, alert, dyspneic-appearing, in no distress HENT: Normocephalic, atraumatic. Oropharynx unremarkable. EYES: Normal conjunctiva. Sclera non-icteric. NECK: Supple. No nuchal rigidity. FROM. No JVD. RESPIRATORY: Few scattered rhonchi. CARDIAC: Regular rate, normal rhythm. Extremities warm and well perfused. Pulses equal. ABDOMEN: Soft, non-distended. No tenderness to palpation. No rebound or guarding. No masses. RECTAL: Deferred. MUSCULOSKELETAL: Chest examination reveals no tenderness. The back is symmetrical on inspection without obvious abnormality. There is no CVA tenderness to palpation. No joint edema. LOWER EXTREMITIES: Calves are equal size bilaterally and non-tender. Significant edema. Chronic venous discoloration NEURO: Normal sensorium. No sensory or motor deficits noted. SKIN: No rash or jaundice noted. Medical Decision & Procedures ER Provider Diagnostic Interpretation: X-ray: Per my interpretation, radiologist review. SINGLE VIEW CHEST CLINICAL HISTORY: Dyspnea. FINDINGS: 2 AP, portable, upright chest radiograph are compared to study dated 05/18/2017 and correlated with chest CT dated 06/03/2016. The cardiomediastinal silhouette is unremarkable. There is atherosclerotic calcification of the thoracic aorta. Advanced emphysema and chronic interstitial thickening are similar to previous. There is no evidence of superimposed pneumonia or large pleural effusion. A nodular density in the left upper lung is unchanged to slightly increased in size from previous. There is no pneumothorax. The skeletal structures are osteopenic. The bony thorax appears intact. IMPRESSION: 1. Advanced emphysema with no acute cardiopulmonary abnormality. 2. A nodular density in the left midlung is unchanged to slightly increased in size from previous. Follow-up with a nonemergent repeat chest CT is recommended for reassessment. Electronically signed by: Eduardo Garcia M.D. 11/15/2017 8:41 PM Dictated Date/Time: 11/15/2017 8:39 PM Laboratory Results 11/15/17 19:25 Red Blood Count 4.65, Mean Corpuscular Volume 96.6, Mean Corpuscular Hemoglobin 29.7, Mean Corpuscular Hemoglobin Concent 30.7, Mean Platelet Volume 9.0, Neutrophils (%) (Auto) 87.0, Lymphocytes (%) (Auto) 6.4, Monocytes (%) (Auto) 6.1, Eosinophils (%) (Auto) 0.1, Basophils (%) (Auto) 0.1, Neutrophils # (Auto) 10.15, Lymphocytes # (Auto) 0.74, Monocytes # (Auto) 0.71, Eosinophils # (Auto) 0.01, Basophils # (Auto) 0.01 11/15/17 19:25 Test 11/15/17 19:25 White Blood Count 11.65 K/uL (4.8-10.8) Red Blood Count 4.65 M/uL (4.7-6.1) Hemoglobin 13.8 g/dL (14.0-18.0) Hematocrit 44.9 % (42-52) Mean Corpuscular Volume 96.6 fL (80-100) Mean Corpuscular Hemoglobin 29.7 pg (25-34) Mean Corpuscular Hemoglobin Concent 30.7 g/dl (32-36) Platelet Count 130 K/uL (130-400) Mean Platelet Volume 9.0 fL (7.4-10.4) Neutrophils (%) (Auto) 87.0 % Lymphocytes (%) (Auto) 6.4 % Monocytes (%) (Auto) 6.1 % Eosinophils (%) (Auto) 0.1 % Basophils (%) (Auto) 0.1 % Neutrophils # (Auto) 10.15 K/uL (1.4-6.5) Lymphocytes # (Auto) 0.74 K/uL (1.2-3.4) Monocytes # (Auto) 0.71 K/uL (0.11-0.59) Eosinophils # (Auto) 0.01 K/uL (0-0.5) Basophils # (Auto) 0.01 K/uL (0-0.2) RDW Standard Deviation 46.1 fL (36.4-46.3) RDW Coefficient of Variation 13.2 % (11.5-14.5) Immature Granulocyte % (Auto) 0.3 % Immature Granulocyte # (Auto) 0.03 K/uL (0.00-0.02) Anion Gap 4.0 mmol/L (3-11) Est Creatinine Clear Calc Drug Dose 129.0 ml/min Estimated GFR () 109.3 Estimated GFR (Non- 94.3 BUN/Creatinine Ratio 19.6 (10-20) Calcium Level 8.9 mg/dl (8.5-10.1) Magnesium Level 2.2 mg/dl (1.8-2.4) Total Bilirubin 0.3 mg/dl (0.2-1) Aspartate Amino Transf (AST/SGOT) 19 U/L (15-37) Alanine Aminotransferase (ALT/SGPT) 25 U/L (12-78) Alkaline Phosphatase 85 U/L (45-117) Total Creatine Kinase 68 U/L (39-308) Creatine Kinase MB 3.1 ng/ml (0.5-3.6) Creatine Kinase MB Ratio 4.6 (0-3.0) Troponin I < 0.015 ng/ml (0-0.045) Pro-B-Type Natriuretic Peptide 110 pg/ml (0-900) Total Protein 7.1 gm/dl (6.4-8.2) Albumin 3.2 gm/dl (3.4-5.0) Globulin 3.9 gm/dl (2.5-4.0) Albumin/Globulin Ratio 0.8 (0.9-2) Laboratory results reviewed by me Medications Administered Medications (Trade) Dose Ordered Sig/Denisse Route Start Time Stop Time Status Last Admin Dose Admin Albuterol/ Ipratropium (Duoneb) 3 ml NOW STAT INH 11/15/17 19:31 11/15/17 19:32 DC 11/15/17 19:51 3 ML Methylprednisolone Sodium Succinate (Solu-Medrol IV) 125 mg NOW STAT IV 11/15/17 19:31 11/15/17 19:33 DC 11/15/17 19:51 125 MG Albuterol/ Ipratropium (Duoneb) 3 ml NOW STAT INH 11/15/17 21:39 11/15/17 21:40 DC 11/15/17 21:50 3 ML ECG Indication: SOB/dyspnea Rate (beats per minute): 92 Rhythm: sinus rhythm Findings: nonspecific-ST abn, PAC ED Course 1925: The patient was evaluated in room B06. A complete history and physical exam was performed. 1930: Ordered Solu-Medrol 125 mg IV, Duoneb 3 ml INH. 2137: I reevaluated the patient and updated him on his results. I discussed his treatment plan and he agrees. He will be getting a second nebulizer treatment and will be further evaluated. 2138: Ordered Duoneb 3 ml INH. 2145: I discussed the patients case with Chris Perez. He understands the patients condition and agrees to accept the patient. The patient will be further evaluated. Medical Decision Triage Nursing notes reviewed. The patient's presentation and history were concerning for SOB and leg swelling. Etiologies such as COPD, reactive airway disease, CHF, cardiac ischemia, pneumonia,pulmonary embolism, pneumothorax, musculoskeletal, infections, gastrointestinal, as well as others were entertained. The patient was evaluated. He had pursed lip breathing and short of breath. He notes a history of emphysema. He also has a chronic history of lymphedema. He was given nebulizer treatments and Solu-Medrol. His blood work was unremarkable. Chest x-ray revealed no evidence of infiltrate. Cardiac markers negative. ECG was nonischemic. He has gained well over 10 pounds despite using diuretics as an outpatient. He is more symptomatic. Further management in the hospital is appropriate. Consultation was made with internal medicine. The patient was evaluated in the Emergency Room for further management. Medication Reconcilliation Current Medication List: was personally reviewed by me Blood Pressure Screening Patient's blood pressure: Elevated blood pressure Referred to Hospitalist. Consults Time Called: 2140 Consulting Physician: Chris Perez Returned Call: 2145 I discussed the patients case with Chris Perez. He understands the patients condition and agrees to accept the patient. The patient will be further evaluated. Impression Primary Impression: Hypoxia Additional Impressions: Lymphedema COPD (chronic obstructive pulmonary disease) Scribe Attestation The scribe's documentation has been prepared under my direction and personally reviewed by me in its entirety. I confirm that the note above accurately reflects all work, treatment, procedures, and medical decision making performed by me. Departure Information Dispostion Being Evaluated By Hospitalist Referrals No Doctor, Assigned (PCP) Patient Instructions My [facility] Problem Qualifiers
[2017-11-16] MEDS: METHYLPREDNISOLONE IV 40 MG in SYRINGE 0 ML IV SCH ×5 (00:57→23:39)
[2017-11-16] MEDS: LEVOFLOXACIN 500 MG TAB PO SCH ×2 (00:59→13:18)
[2017-11-16] MEDS: POTASSIUM CHLORIDE 10 MEQ TABCR PO SCH ×2 (00:59→08:50)
[2017-11-16] MEDS: FUROSEMIDE INJ 40 MG in SYRINGE 0 ML IV SCH ×3 (01:00→18:00)
[2017-11-16] MEDS: DILTIAZEM HCL 120 MG CAPCR PO SCH ×3 (01:00→21:20)
[2017-11-16] MEDS: SERTRALINE HCL 50 MG TAB PO SCH ×2 (01:01→21:20)
[2017-11-16] MEDS: IPRATROPIUM BROMIDE NEB SOLN 0.02% 2.5 ML VIAL INH SCH ×4 (01:25→19:31)
[2017-11-16] MEDS: LEVALBUTEROL 1.25MG/0.5ML NEB INH SCH ×4 (01:25→19:31)
[2017-11-16] MEDS ORDERED: LEVALBUTEROL/IPRATROPIUM NEB INH SCH (03:00)
[2017-11-16 04:01] LABS: INFLUENZA B ANTIGEN Neg for Influ B (NEG)
[2017-11-16 04:39] LABS: INFLUENZA A PCR Neg for Influ A (NEG); INFLUENZA B PCR Neg for Influ B (NEG)
[2017-11-16 06:18] LABS: HEMATOCRIT 41.4 % (42-52); HEMOGLOBIN 12.8 g/dL (14.0-18.0); MEAN CORPUSCULAR HEMOGLOBIN 29.4 pg (25-34); MEAN CORPUSCULAR HGB CONC 30.9 g/dl (32-36); MEAN PLATELET VOLUME 9.1 fL (7.4-10.4); PLATELET COUNT 129 K/uL (130-400); RED CELL DISTRIBUTION WIDTH CV 12.9 % (11.5-14.5); RED CELL DISTRIBUTION WIDTH SD 44.4 fL (36.4-46.3); WHITE BLOOD COUNT 11.13 K/uL (4.8-10.8)
--- NOTE | 2017-11-16 06:36 | DIAGNOSTIC IMAGING REPORT ---
VENOUS DOPPLER LWR EXT BILA HISTORY: Pain. Edema. LE edema COMPARISON STUDY: 06/03/2016 FINDINGS: There is normal compressibility, flow, and augmentation within the bilateral lower extremity deep venous systems. IMPRESSION: No DVT within the right or left lower extremity. The above report was generated using voice recognition software. It may contain grammatical, syntax or spelling errors. Electronically signed by: Carter Gary M.D. 11/16/2017 6:35 AM Dictated Date/Time: 11/16/2017 6:35 AM
[2017-11-16 06:49] LABS: CALCIUM 8.5 mg/dl (8.5-10.1); CREATININE 0.86 mg/dl (0.60-1.40); POTASSIUM 4.1 mmol/L (3.5-5.1)
[2017-11-16] MEDS ORDERED: PERFLUTREN LIPID MICROSPHERE (DEFINITY) IV ONE (07:11)
[2017-11-16] MEDS: LACTOBACILLUS ACIDOPHILUS (FLORANEX) TAB PO SCH (08:51)
[2017-11-16] MEDS: ANORO ELLIPTA~ORDER AWAITING ACTION SCH ×3 (08:52→23:38)
[2017-11-16] MEDS ORDERED: ENOXAPARIN 40 MG/0.4 ML SYR SC SCH (09:00)
--- NOTE | 2017-11-16 09:57 | PULMONARY CONSULTATION ---
DATE OF CONSULTATION: 11/16/2017 DATE OF CONSULTATION: 11/16/2017 TIME: 8:40 a.m. REPORT OF CONSULTATION: The patient was seen in room 275 bed 2. He is a 62-year-old male admitted with progressive shortness of breath. He has a long-standing history of emphysema and COPD. He has been disabled since 2010. At that time he had a recurrent left pneumothorax which subsequently was treated surgically with pleurodesis. This appears to have been done by video-assisted thoracoscopy and it happened at [facility] in [place] where the patient used to live. Since then, he has had marked problems with shortness of breath. He states that he has had 1 or 2 exacerbations in the hospital, although I could not find definite admission specifically for that. He has had some ER visits. In addition, he has a history of lymphedema and cellulitis. He has had a worsening of his breathing for about 5 days. He was short of breath just going from his bed to the bathroom, which would just be 10-15 feet. Usually he is able to walk about 45 or 50 feet. The patient lives in an apartment. He had stopped taking his diuretics. That was because he was having to go to the bathroom to urinate frequently and he was too short of breath to do so. This he believes resulted in worsening of his swelling. The patient has not had an increased cough. His cough is mild with scant sputum. It is unchanged. There has been no hemoptysis. He has not had any chest pains, chills, fevers or sweats. The patient has medicines for his breathing at home, but he does not take things regularly. What he does take regularly is an oral Ellipta which he feels helps. However, he has neb treatments with ipratropium/albuterol that he just uses occasionally. He estimates he has taken about 4 treatments in a week. He also has a Combivent Respimat that he does not take regularly. He used to be on Advair. He is no longer on that for reasons that were not clear. He does use home oxygen at 2 liters and sometimes increases to 3 or 4 liters. His energy level has been low. His appetite has been decreased the last few days. He came into the hospital late yesterday. He feels slightly better today than he did before. PAST SURGICAL HISTORY: 1. Hernia repair this past summer. 2. Knee surgery in the . 3. Cholecystectomy. 4. Pleurodesis of the left chest 2011. PAST MEDICAL HISTORY: 1. Emphysema. 2. COPD. 3. Lymphedema. 4. Anxiety. 5. Depression. SOCIAL HISTORY: Tobacco 1 pack per day for 38 years but none since 2010. ETOH -- occasional. ALLERGIES: Denies any allergies to medicines. 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 He did have some asbestos exposure there. FAMILY HISTORY: Mother age 53 lymphoma, father age 75 of brain aneurysm and heart disease. REVIEW OF SYSTEMS: Essentially negative except for the above-mentioned complaints. The patient does have nocturia x2 or 3. He was never told that he had prostate problems; however. This was questioned to him in light of the fact he is taking Anoro, which can exacerbate prostate problems in a male. As noted, energy level is very low. The remainder of the review of systems is negative except as noted above and 10 systems were reviewed. MEDICATIONS AT HOME: 1. Furosemide 40 mg daily p.r.n. 2. Combivent Respimat p.r.n. 3. Ipratropium albuterol neb treatments p.r.n. 4. Anora Ellipta 1 puff daily. 5. Desloratadine 5 mg daily. 6. Diltiazem 120 mg b.i.d. 7. Doxycycline 100 mg daily. 8. Probiotic daily. 9. Sertraline 50 mg at bedtime. 10. Lorazepam 0.5 t.i.d. p.r.n. 11. Potassium 10 mEq daily p.r.n. to be taken if he takes his Lasix. PHYSICAL EXAMINATION: GENERAL: The patient is a 62-year-old male who was cooperative, alert and oriented. He was in no distress at rest. He did cough once or twice during the exam. VITAL SIGNS: He has been afebrile. Current temperature 36.5. HEAD, EYES, EARS, NOSE, AND THROAT: Eye exam showed evidence of cataract formation bilaterally. Nasal cannula was in place. Mouth exam showed no erythema or exudate. NECK: Palpation of the neck reveals no lymphadenopathy. CHEST: Showed diminished excursions. There was an increased AP diameter. Heart rate was 92 per minute. The rhythm is regular. Blood pressure 135/74. LUNGS: Respiratory rate 22 breaths per minute. The breath sounds are diffusely diminished. Faint end expiratory wheezes were heard. Oxygen saturation was 90% on 4 liters. ABDOMEN: Soft. Bowel sounds were present. There was no tenderness to palpation or masses. There was a prominent scar from prior surgery. EXTREMITIES: Reveals marked lymphedema of both lower extremities. The skin is dry and scaly. He does have some pitting edema. The patient's chest x-ray shows advanced emphysema. There is a slight nodular density in the left mid lung field. This was reviewed back as far as the spring, at which time it was definitely larger than what it is currently. He has had at least 2 CAT scans evaluating this. Venous Doppler of both lower extremities was negative. LABORATORY DATA: White count is 11.13, hemoglobin 12.8, platelets 129,000. INR is 1. Urinalysis showed positive nitrite and there were 5-10 WBCs with 4+ bacteria. Electrolytes show sodium 136, potassium 4.1, chloride 94, bicarbonate 38. BUN is 15 with a creatinine of 0.86. Blood sugar was 170. Calcium was 8.5, magnesium 2.1. ProBNP was 110. Troponin was negative. Flu test was negative. IMPRESSIONS: 1. Chronic obstructive pulmonary disease with exacerbation. 2. Severe emphysema -- status post pleurodesis for prior left pneumothorax. 3. Left lung nodule -- smaller than 1-1/2 years ago. 4. Urinary tract infection. COMMENTS AND RECOMMENDATIONS: I would like to obtain an arterial blood gas. His CO2 on electrolytes was quite high. I would like to evaluate his pCO2 and see what his pH is in relation to that. The patient is on levalbuterol and ipratropium every 6 hours and I agree with that. I think the patient would be roberts to take his nebulizer treatments at least 2-3 times daily on a regular basis. He is on methylprednisolone 40 mg IV q. 6. It appears that this is driving his sugars up somewhat. Will need to follow them closely. If he is better tomorrow, would start to taper the methylprednisolone. The patient has been started on vancomycin. He is also on levofloxacin. Certainly those antibiotics should be adequate. I do not think he has a true lung infection at present. He may have a urinary tract infection. I do not see evidence of a true skin infection at present. The patient previously went to pulmonary rehab and did well. He states that when he had his hernia repair, he was no longer able to do some regular exercising as he had done previously. He probably has eligibility for at least a limited repeat on pulmonary rehab once he is improved from this acute event. Thank you very much for asking me to assist in his care.
--- NOTE | 2017-11-16 11:19 | Pharmacy Progress Note ---
Pharmacy Antibiotic Consult Date of Service: Nov 16, 2017. Pharmacy Dosing Scope Pharmacy is consulted to initiate Vancomycin IV dosing therapy, order appropriate labs and adjust drug dose/frequency. Subjective The patient is a 62 year old male admitted on Nov 15, 2017 at 22:36. Objective Height (Feet): 6 Height (Inches): 0.00 Weight (Kilograms): 112.400 Lab Results (24hrs): Test 11/15/17 19:25 11/16/17 03:05 11/16/17 03:55 11/16/17 06:04 White Blood Count 11.65 K/uL (4.8-10.8) 11.13 K/uL (4.8-10.8) Red Blood Count 4.65 M/uL (4.7-6.1) 4.36 M/uL (4.7-6.1) Hemoglobin 13.8 g/dL (14.0-18.0) 12.8 g/dL (14.0-18.0) Hematocrit 44.9 % (42-52) 41.4 % (42-52) Mean Corpuscular Volume 96.6 fL (80-100) 95.0 fL (80-100) Mean Corpuscular Hemoglobin 29.7 pg (25-34) 29.4 pg (25-34) Mean Corpuscular Hemoglobin Concent 30.7 g/dl (32-36) 30.9 g/dl (32-36) Platelet Count 130 K/uL (130-400) 129 K/uL (130-400) Mean Platelet Volume 9.0 fL (7.4-10.4) 9.1 fL (7.4-10.4) Neutrophils (%) (Auto) 87.0 % Lymphocytes (%) (Auto) 6.4 % Monocytes (%) (Auto) 6.1 % Eosinophils (%) (Auto) 0.1 % Basophils (%) (Auto) 0.1 % Neutrophils # (Auto) 10.15 K/uL (1.4-6.5) Lymphocytes # (Auto) 0.74 K/uL (1.2-3.4) Monocytes # (Auto) 0.71 K/uL (0.11-0.59) Eosinophils # (Auto) 0.01 K/uL (0-0.5) Basophils # (Auto) 0.01 K/uL (0-0.2) RDW Standard Deviation 46.1 fL (36.4-46.3) 44.4 fL (36.4-46.3) RDW Coefficient of Variation 13.2 % (11.5-14.5) 12.9 % (11.5-14.5) Immature Granulocyte % (Auto) 0.3 % Immature Granulocyte # (Auto) 0.03 K/uL (0.00-0.02) Sodium Level 138 mmol/L (136-145) 136 mmol/L (136-145) Potassium Level 4.1 mmol/L (3.5-5.1) 4.1 mmol/L (3.5-5.1) Chloride Level 95 mmol/L (98-107) 94 mmol/L (98-107) Carbon Dioxide Level 39 mmol/L (21-32) 38 mmol/L (21-32) Anion Gap 4.0 mmol/L (3-11) 4.0 mmol/L (3-11) Blood Urea Nitrogen 16 mg/dl (7-18) 15 mg/dl (7-18) Creatinine 0.83 mg/dl (0.60-1.40) 0.86 mg/dl (0.60-1.40) Est Creatinine Clear Calc Drug Dose 129.0 ml/min 115.1 ml/min Estimated GFR () 109.3 107.7 Estimated GFR (Non- 94.3 92.9 BUN/Creatinine Ratio 19.6 (10-20) 17.7 (10-20) Random Glucose 109 mg/dl (70-99) 170 mg/dl (70-99) Calcium Level 8.9 mg/dl (8.5-10.1) 8.5 mg/dl (8.5-10.1) Magnesium Level 2.2 mg/dl (1.8-2.4) 2.1 mg/dl (1.8-2.4) Total Bilirubin 0.3 mg/dl (0.2-1) Aspartate Amino Transf (AST/SGOT) 19 U/L (15-37) Alanine Aminotransferase (ALT/SGPT) 25 U/L (12-78) Alkaline Phosphatase 85 U/L (45-117) Total Creatine Kinase 68 U/L (39-308) Creatine Kinase MB 3.1 ng/ml (0.5-3.6) Creatine Kinase MB Ratio 4.6 (0-3.0) Troponin I < 0.015 ng/ml (0-0.045) Pro-B-Type Natriuretic Peptide 110 pg/ml (0-900) Total Protein 7.1 gm/dl (6.4-8.2) Albumin 3.2 gm/dl (3.4-5.0) Globulin 3.9 gm/dl (2.5-4.0) Albumin/Globulin Ratio 0.8 (0.9-2) Influenza Type A (RT-PCR) Neg for Influ A (NEG) Influenza Type A Antigen Neg for Influ A (NEG) Influenza Type B Antigen Neg for Influ B (NEG) Influenza Type B (RT-PCR) Neg for Influ B (NEG) Urine Color YELLOW Urine Appearance CLEAR (CLEAR) Urine pH 5.5 (4.5-7.5) Urine Specific [place] 1.013 (1.000-1.030) Urine Protein NEG (NEG) Urine Glucose (UA) NEG (NEG) Urine Ketones NEG (NEG) Urine Occult Blood NEG (NEG) Urine Nitrite POS (NEG) Urine Bilirubin NEG (NEG) Urine Urobilinogen NEG (NEG) Urine Leukocyte Esterase SMALL (NEG) Urine WBC (Auto) 5-10 /hpf (0-5) Urine RBC (Auto) 0-4 /hpf (0-4) Urine Hyaline Casts (Auto) 1-5 /lpf (0-5) Urine Epithelial Cells (Auto) 10-20 /lpf (0-5) Urine Bacteria (Auto) 4+ (NEG) Prothrombin Time 10.7 SECONDS (9.0-12.0) Prothromb Time International Ratio 1.0 (0.9-1.1) Test 11/16/17 09:26 Arterial Blood pH 7.38 (7.35-7.45) Arterial Blood Partial Pressure CO2 69 mmHg (35-46) Arterial Blood Partial Pressure O2 62 mm/Hg (80-95) Arterial Blood HCO3 40 mmol/L (19-24) Arterial Blood Oxygen Saturation 92.1 % (90-95) Arterial Blood Base Excess 12.2 mEq/L (-9-1.8) Arterial Blood Gas Delivery 3 LITERS Nino Test POSITIVE (POS) Assessment & Plan Assessment * Pt admitted with c/o SOB and LE edema for a few days. * He noticed clear drainage from his legs over the past 2 days, and reports that he hasnt taken his lasix for a few days. * Pt has been on chronic suppressive therapy with doxycycline 100mg po daily for hx of LE cellulitis. * Renal function at baseline. * Pt afebrile/WBC=11.1 * Blood and urine cultures pending. Nasal MRSA swab pending. Plan Vancomycin * Loading dose: 2750 mg IV (25mg/kg) X 1 dose then: 1750 mg IV (15mg/kg) every 10 hours. * Goal trough level for cellulitis: 15 mcg/mL. * Estimated pk parameters: ke=0.099, t1/2=~7hrs * Trough level has been ordered for: 11/17 @1730 prior to 4th maintenance dose Pharmacy will continue to follow and will adjust dose/frequency as necessary. Thank you
[2017-11-16] MEDS: VANCOMYCIN INJ 1,750 MG in SODIUM CHLORIDE 0.9% 500ML 500 ML IV SCH ×2 (14:03→22:07)
--- NOTE | 2017-11-16 18:40 | Progress Note ---
Medicine Progress Note Date & Time of Visit: Nov 16, 2017 at 18:39. Subjective Patient states he does not feel any change in his breathing and was frustrated that there was no wrapping done on his legs; he states he has not been able to ambulate due to [place] and has mostly been in the bed and chair. No overnight events noted. Tolerating PO. No other complaints. Objective Last 8 Hrs Date Time Temp Pulse Resp B/P (MAP) Pulse Ox O2 Delivery O2 Flow Rate FiO2 11/16/17 15:16 36.3 101 18 109/71 (84) 92 Nasal Cannula 3.0 11/16/17 14:13 105 16 95 Nasal Cannula 3.0 11/16/17 12:00 92 Nasal Cannula 3.0 11/16/17 11:41 36.8 95 18 112/74 (87) 93 3.0 Physical Exam: GENERAL: Patient is in no acute distress. HEENT: No acute trauma, normocephalic, mucous membranes moist, no nasal congestion, no scleral icterus, conjunctivae clear NECK: No stridor, trachea is midline. LUNGS: Clear to auscultation bilaterally, no wheeze, no rhonchi, breath sounds equal. HEART: Without murmurs gallops or rubs, regular rate and rhythm. ABDOMEN: Soft, nontender, bowel sounds positive, nondistended EXTREMITIES: No cyanosis; B/L LE lymphedema with stasis skin changes on both legs NEUROLOGIC: Oriented x 3, no acute motor or sensory deficits, no focal weakness. SKIN: No rash, no jaundice, no diaphoresis. Laboratory Results: Last 24 Hours Test 11/15/17 19:25 11/16/17 03:05 11/16/17 03:55 11/16/17 06:04 White Blood Count 11.65 K/uL 11.13 K/uL Red Blood Count 4.65 M/uL 4.36 M/uL Hemoglobin 13.8 g/dL 12.8 g/dL Hematocrit 44.9 % 41.4 % Mean Corpuscular Volume 96.6 fL 95.0 fL Mean Corpuscular Hemoglobin 29.7 pg 29.4 pg Mean Corpuscular Hemoglobin Concent 30.7 g/dl 30.9 g/dl Platelet Count 130 K/uL 129 K/uL Mean Platelet Volume 9.0 fL 9.1 fL Neutrophils (%) (Auto) 87.0 % Lymphocytes (%) (Auto) 6.4 % Monocytes (%) (Auto) 6.1 % Eosinophils (%) (Auto) 0.1 % Basophils (%) (Auto) 0.1 % Neutrophils # (Auto) 10.15 K/uL Lymphocytes # (Auto) 0.74 K/uL Monocytes # (Auto) 0.71 K/uL Eosinophils # (Auto) 0.01 K/uL Basophils # (Auto) 0.01 K/uL RDW Standard Deviation 46.1 fL 44.4 fL RDW Coefficient of Variation 13.2 % 12.9 % Immature Granulocyte % (Auto) 0.3 % Immature Granulocyte # (Auto) 0.03 K/uL Sodium Level 138 mmol/L 136 mmol/L Potassium Level 4.1 mmol/L 4.1 mmol/L Chloride Level 95 mmol/L 94 mmol/L Carbon Dioxide Level 39 mmol/L 38 mmol/L Anion Gap 4.0 mmol/L 4.0 mmol/L Blood Urea Nitrogen 16 mg/dl 15 mg/dl Creatinine 0.83 mg/dl 0.86 mg/dl Est Creatinine Clear Calc Drug Dose 129.0 ml/min 115.1 ml/min Estimated GFR () 109.3 107.7 Estimated GFR (Non- 94.3 92.9 BUN/Creatinine Ratio 19.6 17.7 Random Glucose 109 mg/dl 170 mg/dl Calcium Level 8.9 mg/dl 8.5 mg/dl Magnesium Level 2.2 mg/dl 2.1 mg/dl Total Bilirubin 0.3 mg/dl Aspartate Amino Transf (AST/SGOT) 19 U/L Alanine Aminotransferase (ALT/SGPT) 25 U/L Alkaline Phosphatase 85 U/L Total Creatine Kinase 68 U/L Creatine Kinase MB 3.1 ng/ml Creatine Kinase MB Ratio 4.6 Troponin I < 0.015 ng/ml Pro-B-Type Natriuretic Peptide 110 pg/ml Total Protein 7.1 gm/dl Albumin 3.2 gm/dl Globulin 3.9 gm/dl Albumin/Globulin Ratio 0.8 Influenza Type A (RT-PCR) Neg for Influ A Influenza Type A Antigen Neg for Influ A Influenza Type B Antigen Neg for Influ B Influenza Type B (RT-PCR) Neg for Influ B Urine Color YELLOW Urine Appearance CLEAR Urine pH 5.5 Urine Specific [place] 1.013 Urine Protein NEG Urine Glucose (UA) NEG Urine Ketones NEG Urine Occult Blood NEG Urine Nitrite POS Urine Bilirubin NEG Urine Urobilinogen NEG Urine Leukocyte Esterase SMALL Urine WBC (Auto) 5-10 /hpf Urine RBC (Auto) 0-4 /hpf Urine Hyaline Casts (Auto) 1-5 /lpf Urine Epithelial Cells (Auto) 10-20 /lpf Urine Bacteria (Auto) 4+ Prothrombin Time 10.7 SECONDS Prothromb Time International Ratio 1.0 Test 11/16/17 09:26 Arterial Blood pH 7.38 Arterial Blood Partial Pressure CO2 69 mmHg Arterial Blood Partial Pressure O2 62 mm/Hg Arterial Blood HCO3 40 mmol/L Arterial Blood Oxygen Saturation 92.1 % Arterial Blood Base Excess 12.2 mEq/L Arterial Blood Gas Delivery 3 LITERS Nino Test POSITIVE Date/Time Source Procedure Growth Status 11/16/17 00:45 Blood Blood Culture Pending Received 11/16/17 00:44 Blood Blood Culture Pending Received 11/16/17 03:05 Nasal MRSA DNA Surveillance Screen - Final Specimen Negative for MRSA by DNA Probe Complete 11/16/17 03:55 Urine , Clean Catch Urine Culture Pending Received Assessment & Plan ACUTE ON CHRONIC RESPIRATORY FAILURE: with Hypoxemia and hypercapnia -likely secondary to COPD exacerbation -CXR: no infiltrate, no pulmonary congestion -afebrile, mild leukocytosis -negative troponin, BNP: 110 -O2 sats remain: 90's on 3L -AB.38, 69, 62 -influenza negative -MRSA swab negative -blood cultures pending -Xopenex/Atrovent nebs q 4 -on Levaquin day#2 -Solumedrol 40mg IV Q6H -continue ellipta -Pulmonology consulted, appreciate recommendations POSSIBLE UTI: -urine culture pending CHRONIC LYMPHEDEMA: of B/L LE -Lasix 40mg IV bid as patient had stopped taking lasix at home prior to admission -continue home po potassium -TTE: -questionable cellulitis on LE vs. LE stasis -was started on vancomycin to cover cellulitis at this time -US LE r/o DVT -wound care consulted DEPRESSION/ANXIETY: -continue zoloft -continue ativan prn anxiety Current Inpatient Medications: Current Inpatient Medications Medications (Trade) Dose Ordered Sig/Denisse Route Start Time Stop Time Status Last Admin Dose Admin Acetaminophen (Tylenol Tab) 650 mg Q4H PRN PO 11/15/17 22:45 12/15/17 22:44 Ondansetron HCl (Zofran Inj) 4 mg Q6H PRN IV 11/15/17 22:45 12/15/17 22:44 Enoxaparin Sodium (Lovenox Inj) 40 mg Q24H SC 11/16/17 09:00 12/16/17 08:59 11/16/17 08:51 40 MG Furosemide 40 mg/ Syringe 4 ml @ 4 mls/min BID17 IV 11/15/17 22:45 12/15/17 22:44 11/16/17 18:00 4 MLS/MIN Levofloxacin (Levaquin Tab) 500 mg DAILY@11 PO 11/15/17 22:45 11/22/17 22:44 11/16/17 13:18 500 MG Vancomycin HCl (Consult) 1 ea DAILY PRN N/A 11/15/17 23:04 12/15/17 23:03 Methylprednisolone Sodium Succinate 40 mg/Syringe 0.64 ml @ 1.5 mls/min Q6 IV 11/16/17 00:00 12/16/17 00:00 11/16/17 18:03 1.5 MLS/MIN Nitroglycerin (Nitrostat Tab) 0.4 mg UD PRN SL 11/15/17 23:00 12/15/17 22:59 Diltiazem HCl (Cardizem Cd Cap) 120 mg BID PO 11/16/17 09:00 12/16/17 08:59 11/16/17 08:51 120 MG Lorazepam (Ativan Tab) 0.5 mg TID PRN PO 11/15/17 23:15 12/15/17 23:14 Sertraline HCl (Zoloft Tab) 50 mg HS PO 11/16/17 21:00 12/16/17 20:59 11/16/17 01:01 50 MG Miscellaneous Information (Order Awaiting Action) 1 ea QS N/A 11/16/17 08:00 12/16/17 07:59 Lactobacillus Acidophilus (Floranex Tab) 1 tab DAILY PO 11/16/17 09:00 12/16/17 08:59 11/16/17 08:51 1 TAB Potassium Chloride (Klor-Con M10) 10 meq DAILY PO 11/15/17 23:15 12/15/17 23:14 11/16/17 08:50 10 MEQ Miscellaneous Information (Order Awaiting Action) 1 ea QS N/A 11/16/17 08:00 12/16/17 07:59 Ipratropium [place] (Atrovent 0.02% 0.5MG/2.5ML Neb) 0.5 mg Q6R INH 11/16/17 03:00 12/16/17 02:59 11/16/17 14:13 0.5 MG Levalbuterol (Xopenex 1.25MG/ 0.5ML Neb) 1.25 mg Q6R INH 11/16/17 03:00 12/16/17 02:59 11/16/17 14:13 1.25 MG Ipratropium [place] (Atrovent 0.02% 0.5MG/2.5ML Neb) 0.5 mg Q4H PRN INH 11/15/17 23:30 12/15/17 23:29 Levalbuterol (Xopenex 0.63 Mg/ 3 Ml Neb) 0.63 mg Q4H PRN INH 11/15/17 23:30 12/15/17 23:29 Vancomycin HCl 1750 mg/Sodium Chloride 535 ml @ 200 mls/hr Q10H IV 11/16/17 12:00 11/26/17 00:59 11/16/17 14:03 200 MLS/HR
[2017-11-17] VITALS (14 sets, daily range): BP systolic 101–131; BP diastolic 65–82; PULSE 67–119; TEMP 36.4–36.9; O2SAT 90–100
[2017-11-17] MEDS: LEVALBUTEROL 1.25MG/0.5ML NEB INH SCH ×4 (01:54→20:12)
[2017-11-17] MEDS: IPRATROPIUM BROMIDE NEB SOLN 0.02% 2.5 ML VIAL INH SCH ×4 (01:55→20:12)
[2017-11-17] MEDS ORDERED: HEPARIN IV LOW DOSE NO BOLUS STA (04:31)
[2017-11-17] MEDS ORDERED: DILTIAZEM HCL 120 MG CAPCR PO ONE (04:45)
--- NOTE | 2017-11-17 04:53 | Progress Note ---
Progress Note Date of Service Nov 17, 2017. Progress Note noted to be in A fib by Tele monitor HR 130s confirmed with EKG HR 114 EPIC chart reviewed, has been following with Dr. Delgado for an a fib episode in 2015 on exam, patient seen resting in bed, breathing is about the same as yesterday denies chest pain, dyspnea , dizziness, nausea no wheezing noted tachycardic, irregularly irregular rhythm PAROXYSMAL ATRIAL FIBRILLATION likely precipitated by present COPD exacerbation - additional Cardizem 120mg po ordered one dose stat Heparin drip started (patient denies history of bleeding) Cardiology consulted for further recommendations patient follows with Dr. Delgado as outpatient - plan of care explained to patient and he is comfortable with plan of care Catrachita Nelson MD
[2017-11-17] MEDS: HEPARIN 25,000 UNIT/500ML D5W 500 ML IV PRN (05:26)
[2017-11-17 05:37] LABS: HEMATOCRIT 39.1 % (42-52); HEMOGLOBIN 12.1 g/dL (14.0-18.0); IG# 0.04 K/uL (0.00-0.02); LYMPH % 2.1 %; LYMPH ABS # 0.29 K/uL (1.2-3.4); MEAN CELL VOLUME 95.4 fL (80-100); MEAN CORPUSCULAR HEMOGLOBIN 29.5 pg (25-34); MEAN PLATELET VOLUME 9.2 fL (7.4-10.4); MONO % 2.7 %; MONO ABS # 0.38 K/uL (0.11-0.59); NEUT % 94.9 %; PLATELET COUNT 128 K/uL (130-400); RED CELL DISTRIBUTION WIDTH CV 13.1 % (11.5-14.5); RED CELL DISTRIBUTION WIDTH SD 44.9 fL (36.4-46.3); WHITE BLOOD COUNT 14.01 K/uL (4.8-10.8)
[2017-11-17 05:43] LABS: MEAN CORPUSCULAR HGB CONC 30.9 g/dl (32-36)
[2017-11-17 05:52] LABS: INR 1.1 (0.9-1.1); PTT PATIENT 25.9 SECONDS (21.0-31.0)
[2017-11-17] MEDS: METHYLPREDNISOLONE IV 40 MG in SYRINGE 0 ML IV SCH ×3 (05:57→21:59)
[2017-11-17 06:10] LABS: CALCIUM 8.3 mg/dl (8.5-10.1); CREATININE 1.09 mg/dl (0.60-1.40); POTASSIUM 3.7 mmol/L (3.5-5.1)
[2017-11-17] MEDS ORDERED: POTASSIUM CHLORIDE 10 MEQ TABCR PO STA (06:14)
[2017-11-17] MEDS: ANORO ELLIPTA~ORDER AWAITING ACTION SCH ×3 (08:00→23:52)
[2017-11-17] MEDS: LACTOBACILLUS ACIDOPHILUS (FLORANEX) TAB PO SCH (08:26)
[2017-11-17] MEDS: VANCOMYCIN INJ 1,750 MG in SODIUM CHLORIDE 0.9% 500ML 500 ML IV SCH ×2 (08:26→18:29)
[2017-11-17] MEDS: DILTIAZEM HCL 120 MG CAPCR PO SCH ×2 (08:27→20:59)
[2017-11-17] MEDS: FUROSEMIDE INJ 40 MG in SYRINGE 0 ML IV SCH ×2 (08:27→16:39)
[2017-11-17] MEDS: POTASSIUM CHLORIDE 10 MEQ TABCR PO SCH (08:28)
--- NOTE | 2017-11-17 09:40 | ECHOCARDIOGRAM REPORT ---
*NOTICE TO RECEIVING LIBERTARIAN AGENCY This information is strictly Confidential and protected under [place] law. [place] law prohibits you from making any further disclosure of this information unless further disclosure is expressly permitted by the written consent of the person to whom it pertains or is authorized by law. A general authorization for the release of medical or other information is not sufficient for this purpose. Hospital accepts no responsibility if the information is made available to any other person, INCLUDING THE PATIENT. Interpretation Summary * Name: JOY MCKEON Study Date: 11/16/2017 06:38 AM BP: 135/74 mmHg * Patient Location: .[facility]\S\N275\S\2 HR: 92 * : 1955 (M/d/yyyy) Gender: Male Height: 75 in * Age: 62 yrs Ethnicity: [place] Weight: 257 lb * Ordering Physician: Lala Murray * Referring Physician: UNKNOWN * Performed By: Loreto Hay RDCS * * Reason For Study: DYSPNEA, LE EDEMA * BSA: 2.4 m2 * EXTREMELY DIFFICULT APICAL IMAGES WITH HISTORY OF PAST LEFT LUNG SURGERY, SITTING UP, LABORED BREATHING * The study was technically difficult. * The study was technically limited. * -- Conclusions -- * Sinus rhythm was present during the echocardiogram. * The left ventricular wall motion was grossly normal on technically limited assessment. * The LV Ejection Fraction = 55-60%. * Grade I diastolic dysfunction, (abnormal relaxation pattern). * Doppler findings do not suggest pulmonary hypertension. * There is no significant valvualar heart disease. * The right ventricle is normal in size and function. Procedure Details * A contrast injection of Definity was performed to improve assessment of LV function. * Contrast was injected into an intravenous site in the left arm. * One vial of Definity ultrasound contrast was diluted in normal saline to a total volume of 10 ml. A total of '1' ml of solution was administered during imaging. * Lot # [id number] of Definity utilized for procedure. * Expiration date 1 JAN 08. * The attending nurse who injected the contrast agent was ROSE MARIE BOGGS RN. * A complete two-dimensional transthoracic echocardiogram was performed (2D, M-mode, Doppler and color flow Doppler). Left Ventricle * The left ventricle is normal in size. * There is normal left ventricular wall thickness. * Ejection Fraction = 55-60%. * Left ventricular systolic function is normal. * The left ventricular wall motion was grossly normal on technically limited assessment. Right Ventricle * The right ventricle is normal in size and function. Atria * The left atrial size is normal. * Right atrial size is normal. * There is no evidence of atrial septal defect, but resolution does not allow assessment for a patent foramen ovale. Mitral Valve * The mitral valve is normal. * There is no mitral valve stenosis. * Significant mitral regurgitation is absent. Tricuspid Valve * The tricuspid valve is normal. * There is no tricuspid stenosis. * Significant tricuspid regurgitation is absent. * Doppler findings do not suggest pulmonary hypertension. Aortic Valve * The aortic valve is trileaflet. * Aortic stenosis is absent. * There is no significant aortic regurgitation. Pulmonic Valve * The pulmonary valve is not well seen, but the Doppler examination is normal without significant regurgitation or stenosis. Great Vessels * The aortic root and proximal ascending aorta are normal sized. Pericardium/Pleural * There is no pericardial effusion. Great Vessels * Normal inferior vena cava diameter and respiratory variation suggests normal central venous pressure. Left Ventricular Diastolic Function * Grade I diastolic dysfunction, (abnormal relaxation pattern). MMode 2D Measurements and Calculations IVSd 1.1 cm IVSs 1.6 cm LVIDd 5.0 cm LVIDs 3.4 cm LVPWd 1.1 cm LVPWs 1.6 cm IVS/LVPW 1.0 FS 32.4 % EDV(Teich) 116.8 ml ESV(Teich) 46.1 ml EF(Teich) 60.5 % EDV(cubed) 123.0 ml ESV(cubed) 38.0 ml EF(cubed) 69.1 % % IVS thick 39.7 % % LVPW thick 41.7 % LV mass(C)d 214.8 grams LV mass(C)dI 88.0 grams/m\S\2 LV mass(C)s 203.8 grams LV mass(C)sI 83.5 grams/m\S\2 SV(Teich) 70.7 ml SI(Teich) 28.9 ml/m\S\2 SV(cubed) 85.1 ml SI(cubed) 34.8 ml/m\S\2 LVAd ap4 30.5 cm\S\2 LVLd ap4 7.8 cm EDV(MOD-sp4) 96.8 ml EDV(sp4-el) 101.4 ml LVAs ap4 18.4 cm\S\2 LVLs ap4 7.2 cm ESV(MOD-sp4) 40.9 ml ESV(sp4-el) 40.0 ml EF(MOD-sp4) 57.8 % EF(sp4-el) 60.6 % SV(MOD-sp4) 55.9 ml SI(MOD-sp4) 22.9 ml/m\S\2 SV(sp4-el) 61.4 ml SI(sp4-el) 25.2 ml/m\S\2 Doppler Measurements and Calculations MV E max ramana 63.0 cm/sec MV A max ramana 76.2 cm/sec MV E/A 0.83 MV dec time 0.35 sec Ao V2 max 109.8 cm/sec Ao max PG 4.8 mmHg Ao max PG (full) 3.1 mmHg LV V1 max PG 1.7 mmHg LV V1 max 66.0 cm/sec
--- NOTE | 2017-11-17 10:24 | Cardiology Consultation ---
Cardiology Consultation Date of Consultation: Nov 17, 2017 History of Present Illness Patient is a 62 year old male seen in cardiology consultation per the request Dr. Nelson for the evaluation of atrial fibrillation with rapid ventricular rate. The patient has a long-standing history of COPD as well as chronic lower extremity lymphedema. The patient presented on 11/15/17 with worsening shortness of breath. There also been concerned that his prior lymphedema worsened and he was weeping clear fluid. Apparently has lipedema had been on relatively good control for quite some time until he had a hernia surgery and when he was nonambulatory shortly after surgery his lymphedema had worsened over the last few months. He was admitted to the hospital and has been treated appropriately for a COPD exacerbation, and empiric antibiotic therapy with vancomycin was also started due to concerns of possible superimposed lower extremity cellulitis. He feels that his respiratory status has improved over the last 2 days, but is still not back to his baseline. 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 The patient had associated worsening of the shortness of breath but did not since that his heart rate was racing. He states that he has similar symptoms happen episodically home. He was given an extra dose of his oral diltiazem, IV heparin was started for stroke prophylaxis intravenously, and ultimately at 637 this morning he was noted to convert back to sinus rhythm spontaneously without any significant conversion pause. Cardiology was asked to see him regarding atrial fibrillation. Review of his record reveals that he had a similar episode of atrial fibrillation and atrial flutter in 2016 during which time he had seen Dr. Delgado of our practice during hospital stay. It also occurred during treatment for an acute COPD exacerbation. Past Medical/Surgical History Problem List: Medical Problems: (1) Asbestos exposure (2) Bronchitis (3) Cellulitis (4) COPD (chronic obstructive pulmonary disease) (5) COPD (chronic obstructive pulmonary disease) (6) COPD exacerbation (7) Emphysema of lung (8) History of tobacco abuse (9) Lymphedema (10) No known allergies (11) Pneumonia (12) Pneumothorax (13) Pneumothorax (14) SOB (shortness of breath) Surgical Problems: (1) H/O colonoscopy (2) H/O knee surgery (3) Hx of cholecystectomy (4) Hx of inguinal hernia repair (5) pleurodesis History Past Medical History: 1. Emphysema. 2. COPD. 3. Lymphedema. 4. Anxiety. 5. Depression. 6. History of atrial fibrillation and atrial flutter detected during hospital stay in 2015, with recurrence October 2017 PAST SURGICAL HISTORY: 1. Hernia repair this past summer. 2. Knee surgery in the . 3. Cholecystectomy. 4. Pleurodesis of the left chest 2011. SOCIAL HISTORY: Tobacco 1 pack per day for 38 years but none since 2010. Rare alcohol use ALLERGIES: Denies any allergies to medicines. 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 FAMILY HISTORY: Mother age 53 lymphoma, father age 75 of brain aneurysm and possible heart disease, details unknown Review Of Systems See above for pertinent positives & negatives. A total of 10 systems reviewed and were otherwise negative. Allergies Coded Allergies: No Known Allergies (Unverified , 05/18/17) Medications Reported Home Medications Medications Dose Route/Sig Max Daily Dose Days Date Category Dose Instructions Lasix (Furosemide) 40 Mg Tab 40 Mg PO DAILY PRN 11/15/17 Reported Potassium Chloride Er (Potassium Chloride) 10 Meq Tab 10 Meq PO DAILY PRN 11/15/17 Reported Probiotic (Probiotic Product) 1 Tab Tab 1 Tab PO DAILY 11/15/17 Reported Vibramycin (Doxycycline Hyclate) 100 Mg Cap 100 Mg PO DAILY 11/15/17 Reported TAKE THIS MEDICATION ONCE DAILY Sertraline HCl 50 Mg Tab 50 Mg PO HS 11/15/17 Reported Cartia Xt (Diltiazem Hcl Coated Beads) 120 Mg Cap 120 Mg PO BID 11/15/17 Reported Duoneb (Ipratropium-Albuterol) 3 Ml Nebu 1 Treatment INH TID PRN 05/18/17 Reported Combivent Respimat (Ipratropium-Albuterol) 1 Aer Aer 1 Puff INH QID PRN 05/18/17 Reported Lorazepam 0.5 Mg Tab 0.5 Mg PO TID PRN 02/26/16 Reported Desloratadine 5 Mg Tab 5 Mg PO QAM 02/26/16 Reported Anoro Ellipta 62.5-25 Mcg/INH (Umeclidinium-Vilanterol) 1 Aer Aer 1 Puff INH QAM 02/26/16 Reported Oxygen Gas 2 Liters NA CONTINOUS 09/16/15 Reported Physical Exam Vital Signs (Last 8hrs): Last 8 Hrs Date Time Temp Pulse Resp B/P (MAP) Pulse Ox O2 Delivery O2 Flow Rate FiO2 11/17/17 07:17 36.9 90 20 111/66 (81) 100 Room Air 11/17/17 07:07 91 16 94 Nasal Cannula 3.0 11/17/17 06:03 92 22 11/17/17 04:28 36.4 119 26 120/74 (89) 90 Nasal Cannula 3.0 11/17/17 04:00 Nasal Cannula 3.0 General Appearance: Alert and Oriented x3. NAD. Head: Normocephalic Atraumatic. Eyes: PERRLA, EOMI, conjunctiva and sclera clear Neck: Supple. No carotid bruits noted. No JVD. No HJD. Respiratory: Breath sounds clear to auscultation bilaterally. No w/r/r. Cardiovascular: Reg rate and rhythm. S1 and S2 noted. No murmurs, rubs, gallops. PMI non displace. Abdomen: Normal bowel sounds, soft nontender. no abdominal bruits. Extremities: Severe bilateral lower extremity edema with features of lymphedema , chronic scaling of skin, toenails are in poor repair and overgrown. There is no overt erythema or weeping fluid today. Neuro: No focal deficits. Psychiatric: Normal affect. Data Last Resulted 11/17/17 05:22 Red Blood Count 4.10, Mean Corpuscular Volume 95.4, Mean Corpuscular Hemoglobin 29.5, Mean Corpuscular Hemoglobin Concent 30.9, Mean Platelet Volume 9.2, Neutrophils (%) (Auto) 94.9, Lymphocytes (%) (Auto) 2.1, Monocytes (%) (Auto) 2.7, Eosinophils (%) (Auto) 0.0, Basophils (%) (Auto) 0.0, Neutrophils # (Auto) 13.30, Lymphocytes # (Auto) 0.29, Monocytes # (Auto) 0.38, Eosinophils # (Auto) 0.00, Basophils # (Auto) 0.00 Last Resulted 11/17/17 05:22 Past 24 Hours Test 11/17/17 05:22 Range/Units Prothromb Time International Ratio 1.1 0.9-1.1 Prothrombin Time 11.2 9.0-12.0 SECONDS Imaging: Chest x-ray with chronic emphysematous changes EKG on admission reveals stable sinus rhythm with normal corrected QT interval. EKG performed 11/17/17 for 19 a.m. revealed atrial fibrillation 160 bpm corrected QT interval 477 ms Telemetry reviewed: Patient is currently in sinus rhythm on the morning of 11/17 at 10:20 AM, atrial fibrillation was noted from 3:17 AM until 6:37 AM on Echocardiogram performed 11/16/17 and reviewed independently: Normal biventricular systolic function, no evidence of pulmonary hypertension. Assessment & Plan Impression: 1. Paroxysmal atrial fibrillation, currently in sinus rhythm 2. COPD, with acute exacerbation 3. 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 He has a known history of underlying emphysema, COPD with chronic CO2 retention. In the past he has not been found to have obstructive sleep apnea although pulmonary is going to likely place another nocturnal pulse oximetry on him during this hospital stay for the purpose of repeat screening. He likely has underlying paroxysmal atrial fibrillation and this was brought on due to his underlying COPD exacerbation, treatment with bronchodilators, and high-dose corticosteroids. This is persisted despite oral diltiazem treatment, and at this point, I would recommend adding sotalol as an antiarrhythmic medication for the purpose of rhythm control. We'll start with sotalol 80 mg twice a day. A repeat EKG will be performed daily and he will need to remain on telemetry for the first 6 doses of sotalol. I have discontinued his levofloxacin as well as the Zofran disease medications can also prolong the QT interval. If additional antibiotic therapy is felt to be warranted for COPD exacerbation, perhaps we can insert are an antibiotic but does not interact with the QT interval such as doxycycline. I will defer this to the hospitalist service will pulmonary. At this point continue unfractionated heparin for stroke prophylaxis. Looking forward, I think he will require anticoagulation with Coumadin or a direct oral anticoagulant. Patient will be selected based on his insurance coverage and will start looking into this.
[2017-11-17] MEDS ORDERED: SOTALOL HCL 80 MG TAB PO ONE (10:30)
--- NOTE | 2017-11-17 11:34 | Pulmonology Progress Note ---
Pulmonary Progress Note Date of Service Nov 17, 2017. Attending Dr. Valencia Subjective Patient does not feel much improved today. He has continued SOB especially with exertion. When he moves his legs, he becomes especially SOB. At rest, he feels that he is breathing OK, but not well. Discussed this patient briefly with Dr. Pablo. Patient did have an episode of Afib at which time he has increasing SOB. He is currently in sinus rhythm. Echocardiogram: Sinus rhythm during exam EF 55-60% Grade I diastolic dysfunction No suggestion of Pulmonary HTN No significant valvular disease Labs reviewed: WBC 14.04 Hgb 12.1 ABG: pH 7.38 pO2 62 pCO2 69 HCO3 40 on 3 L with O2 Sat of 92.1 Serum Bicarb 41 Creatinine 1.09 BUN 26 TSH 0.383 Urine culture pending Blood cultures NGTD MRSA swab negative. Objective VS reviewed: HR up to 119 this AM with RR of 26 at the time SaO2 90-100% on 3L via nasal cannula General: Patient is awake and alert, but ill appearing. Head: Normocephalic, Atraumatic. ENT: PERRLA, No discharge, EOMI, Sclera normal Neck: Normal ROM. Trachea midline. No stridor Respiratory: Very diminished breath sounds throughout lungs. No adventitious sounds heard. Respiratory distress notable on exam with pursed lip breathing after moving his legs. Cardiovascular: Regular rate and rhythm. Back: Normal inspection. Extremities: Severe lymphedema of the bilateral lower extremities. Compression stockings in place. No acute appearing erythema, but chronic appearing darkening of the skin of the lower extremities. Neuro: CN II-XII grossly intact. Sensation and motor function grossly intact. Psych: Mood and affect are normal. Assessment & Plan Acute on chronic hypoxic respiratory with hypercapnia COPD with emphysema Chronic O2 dependence Chronic CO2 retention Chronic lymphedema -Patient continues to have SOB especially with minimal exertion today. He is chronically retaining CO2 based on his serum bicarb and ABG. He is chronically O2 dependent and has had a sleep study in the past showing no ÓSCAR. -Because the patient continues to have SOB and is chronically retaining CO2, feel that a trial of BiPAP may help his symptoms. Will trial BiPAP for 1-2 hours during the day today and then continue at night if the patient tolerates. -Continue diuresis per primary team and cardiology. Feel that likely his worsening lymphedema may also be contributing to his increased SOB. -Continue IV SoluMedrol. This patient has severely diminished lung sounds. Feel that therefore he does need continued systemic steroids. Will taper to 40 mg IV SoluMedrol TID today and consider tapering further to BID tomorrow. He likely will need a slow tapering course. -Continue O2 supplementation to maintain SaO2 between 88-92% ideally to help with respiratory drive. If patient tolerates BiPAP, can also utilize BiPAP throughout the day for increasing SOB. -Patient continues on IV Vancomycin. Do not feel that he has a respiratory tract infection, but follow primary team recommendations in regards to antibiotic therpay for possible other infectious etiology s/a urinary tract. Do not feel that he has lower extremity cellulitis. -Consider an overnight pulse oximetry study prior to discharge (when improved). Patient likely would qualify for home BiPAP based on ABG alone, but overnight pulse oximetry may help as well. Pulmonary will follow. Data Medications: Current Inpatient Medications Medications (Trade) Dose Ordered Sig/Denisse Route Start Time Stop Time Status Last Admin Dose Admin Acetaminophen (Tylenol Tab) 650 mg Q4H PRN PO 11/15/17 22:45 12/15/17 22:44 Furosemide 40 mg/ Syringe 4 ml @ 4 mls/min BID17 IV 11/15/17 22:45 12/15/17 22:44 11/17/17 08:27 4 MLS/MIN Vancomycin HCl (Consult) 1 ea DAILY PRN N/A 11/15/17 23:04 12/15/17 23:03 Nitroglycerin (Nitrostat Tab) 0.4 mg UD PRN SL 11/15/17 23:00 12/15/17 22:59 Diltiazem HCl (Cardizem Cd Cap) 120 mg BID PO 11/16/17 09:00 12/16/17 08:59 11/17/17 08:27 120 MG Lorazepam (Ativan Tab) 0.5 mg TID PRN PO 11/15/17 23:15 12/15/17 23:14 Sertraline HCl (Zoloft Tab) 50 mg HS PO 11/16/17 21:00 12/16/17 20:59 11/16/17 21:20 50 MG Miscellaneous Information (Order Awaiting Action) 1 ea QS N/A 11/16/17 08:00 12/16/17 07:59 Lactobacillus Acidophilus (Floranex Tab) 1 tab DAILY PO 11/16/17 09:00 12/16/17 08:59 11/17/17 08:26 1 TAB Potassium Chloride (Klor-Con M10) 10 meq DAILY PO 11/15/17 23:15 12/15/17 23:14 11/17/17 08:28 10 MEQ Miscellaneous Information (Order Awaiting Action) 1 ea QS N/A 11/16/17 08:00 12/16/17 07:59 Ipratropium [place] (Atrovent 0.02% 0.5MG/2.5ML Neb) 0.5 mg Q6R INH 11/16/17 03:00 12/16/17 02:59 11/17/17 07:06 0.5 MG Levalbuterol (Xopenex 1.25MG/ 0.5ML Neb) 1.25 mg Q6R INH 11/16/17 03:00 12/16/17 02:59 11/17/17 07:06 1.25 MG Ipratropium [place] (Atrovent 0.02% 0.5MG/2.5ML Neb) 0.5 mg Q4H PRN INH 11/15/17 23:30 12/15/17 23:29 Levalbuterol (Xopenex 0.63 Mg/ 3 Ml Neb) 0.63 mg Q4H PRN INH 11/15/17 23:30 12/15/17 23:29 Vancomycin HCl 1750 mg/Sodium Chloride 535 ml @ 200 mls/hr Q10H IV 11/16/17 12:00 11/26/17 00:59 11/17/17 08:26 200 MLS/HR Heparin Sodium/ Dextrose 500 ml @ 20 mls/hr Q24H PRN IV 11/17/17 05:00 12/17/17 04:59 11/17/17 05:26 20 MLS/HR Sotalol HCl (Betapace Tab) 80 mg BID PO 11/17/17 21:00 12/17/17 20:59 Methylprednisolone Sodium Succinate 40 mg/Syringe 0.64 ml @ 1.5 mls/min Q8 IV 11/17/17 14:00 12/16/17 00:00 Vital Signs: Date Time Temp Pulse Resp B/P (MAP) Pulse Ox O2 Delivery O2 Flow Rate FiO2 11/17/17 08:00 100 Nasal Cannula 3.0 11/17/17 07:17 36.9 90 20 111/66 (81) 100 Room Air 11/17/17 07:07 91 16 94 Nasal Cannula 3.0 11/17/17 06:03 92 22 11/17/17 04:28 36.4 119 26 120/74 (89) 90 Nasal Cannula 3.0 11/17/17 04:00 Nasal Cannula 3.0 11/17/17 01:56 95 16 92 Nasal Cannula 3.0 11/17/17 00:00 Nasal Cannula 2.0 11/16/17 23:57 36.7 100 18 121/71 (88) 97 Nasal Cannula 3.0 11/16/17 20:00 92 Nasal Cannula 3.0 11/16/17 19:35 94 16 93 Nasal Cannula 3.0 11/16/17 19:28 36.8 103 16 160/83 (108) 88 Nasal Cannula 2.0 11/16/17 16:00 92 Nasal Cannula 2.0 11/16/17 15:16 36.3 101 18 109/71 (84) 92 Nasal Cannula 3.0 11/16/17 14:13 105 16 95 Nasal Cannula 3.0 11/16/17 12:00 92 Nasal Cannula 3.0 11/16/17 11:41 36.8 95 18 112/74 (87) 93 3.0 Laboratory Results: Last 24 Hours Test 11/17/17 05:22 White Blood Count 14.01 K/uL Red Blood Count 4.10 M/uL Hemoglobin 12.1 g/dL Hematocrit 39.1 % Mean Corpuscular Volume 95.4 fL Mean Corpuscular Hemoglobin 29.5 pg Mean Corpuscular Hemoglobin Concent 30.9 g/dl Platelet Count 128 K/uL Mean Platelet Volume 9.2 fL Neutrophils (%) (Auto) 94.9 % Lymphocytes (%) (Auto) 2.1 % Monocytes (%) (Auto) 2.7 % Eosinophils (%) (Auto) 0.0 % Basophils (%) (Auto) 0.0 % Neutrophils # (Auto) 13.30 K/uL Lymphocytes # (Auto) 0.29 K/uL Monocytes # (Auto) 0.38 K/uL Eosinophils # (Auto) 0.00 K/uL Basophils # (Auto) 0.00 K/uL RDW Standard Deviation 44.9 fL RDW Coefficient of Variation 13.1 % Immature Granulocyte % (Auto) 0.3 % Immature Granulocyte # (Auto) 0.04 K/uL Prothrombin Time 11.2 SECONDS Prothromb Time International Ratio 1.1 Activated Partial Thromboplast Time 25.9 SECONDS Partial Thromboplastin Ratio 1.0 Sodium Level 138 mmol/L Potassium Level 3.7 mmol/L Chloride Level 94 mmol/L Carbon Dioxide Level 41 mmol/L Anion Gap 3.0 mmol/L Blood Urea Nitrogen 26 mg/dl Creatinine 1.09 mg/dl Est Creatinine Clear Calc Drug Dose 90.3 ml/min Estimated GFR () 83.9 Estimated GFR (Non- 72.4 BUN/Creatinine Ratio 23.5 Random Glucose 146 mg/dl Calcium Level 8.3 mg/dl Magnesium Level 2.1 mg/dl Thyroid Stimulating Hormone (TSH) 0.383 uIu/ml
[2017-11-17 11:40] LABS: PTT PATIENT 30.8 SECONDS (21.0-31.0)
--- NOTE | 2017-11-17 13:18 | Cardiology Progress Note ---
Cardiology Progress Note Date of Service Nov 17, 2017. Cardiology Progress Note Out of pocket cost for Eliquis estimated to be over $150 per month. Will start coumadin today.
[2017-11-17] MEDS ORDERED: HEPARIN IV BOLUS 4,500 UNIT in SYRINGE 0 ML IV ONE (14:00)
[2017-11-17] MEDS: WARFARIN SOD 5 MG TAB PO SCH (16:39)
[2017-11-17] MEDS ORDERED: VANCOMYCIN TROUGH ONE (17:30)
--- NOTE | 2017-11-17 18:53 | Progress Note ---
Medicine Progress Note Date & Time of Visit: Nov 17, 2017 at 18:40. Subjective Patient denies any new complaints, states his breathing might be a little easier today. Overnight events noted, patient went into a fib, did not sleep well, and had issues with IV site bleeding. Tolerating PO without difficulty. LE edema slightly better. Objective Last 8 Hrs Date Time Temp Pulse Resp B/P (MAP) Pulse Ox O2 Delivery O2 Flow Rate FiO2 11/17/17 15:28 36.4 68 17 104/69 (81) 100 CPAP 11/17/17 14:31 88 94 5.0 11/17/17 14:30 88 16 94 Nasal Cannula 5.0 11/17/17 12:00 100 Nasal Cannula 3.0 11/17/17 11:24 36.5 87 18 107/71 (83) 100 Nasal Cannula 3.0 Physical Exam: GENERAL: Patient is in no acute distress. HEENT: No acute trauma, normocephalic, mucous membranes moist, no nasal congestion, no scleral icterus, conjunctivae clear NECK: No stridor, trachea is midline. LUNGS: Clear to auscultation bilaterally diminished bilaterally, no wheeze, no rhonchi, breath sounds equal. HEART: Without murmurs gallops or rubs, regular rate and rhythm. ABDOMEN: Soft, nontender, bowel sounds positive, nondistended EXTREMITIES: No cyanosis; B/L LE lymphedema with stasis skin changes on both legs NEUROLOGIC: Oriented x 3, no acute motor or sensory deficits, no focal weakness. SKIN: No rash, no jaundice, no diaphoresis. Laboratory Results: Last 24 Hours Test 11/17/17 05:22 11/17/17 11:20 11/17/17 17:21 White Blood Count 14.01 K/uL Red Blood Count 4.10 M/uL Hemoglobin 12.1 g/dL Hematocrit 39.1 % Mean Corpuscular Volume 95.4 fL Mean Corpuscular Hemoglobin 29.5 pg Mean Corpuscular Hemoglobin Concent 30.9 g/dl Platelet Count 128 K/uL Mean Platelet Volume 9.2 fL Neutrophils (%) (Auto) 94.9 % Lymphocytes (%) (Auto) 2.1 % Monocytes (%) (Auto) 2.7 % Eosinophils (%) (Auto) 0.0 % Basophils (%) (Auto) 0.0 % Neutrophils # (Auto) 13.30 K/uL Lymphocytes # (Auto) 0.29 K/uL Monocytes # (Auto) 0.38 K/uL Eosinophils # (Auto) 0.00 K/uL Basophils # (Auto) 0.00 K/uL RDW Standard Deviation 44.9 fL RDW Coefficient of Variation 13.1 % Immature Granulocyte % (Auto) 0.3 % Immature Granulocyte # (Auto) 0.04 K/uL Prothrombin Time 11.2 SECONDS Prothromb Time International Ratio 1.1 Activated Partial Thromboplast Time 25.9 SECONDS 30.8 SECONDS Partial Thromboplastin Ratio 1.0 1.2 Sodium Level 138 mmol/L Potassium Level 3.7 mmol/L Chloride Level 94 mmol/L Carbon Dioxide Level 41 mmol/L Anion Gap 3.0 mmol/L Blood Urea Nitrogen 26 mg/dl Creatinine 1.09 mg/dl Est Creatinine Clear Calc Drug Dose 90.3 ml/min Estimated GFR () 83.9 Estimated GFR (Non- 72.4 BUN/Creatinine Ratio 23.5 Random Glucose 146 mg/dl Calcium Level 8.3 mg/dl Magnesium Level 2.1 mg/dl Thyroid Stimulating Hormone (TSH) 0.383 uIu/ml Assessment & Plan PAROXYSMAL A FIB: -began overnight, converted this AM -was started on heparin IV drip and cardizem last night -Cardiology consulted, appreciate recs, patient was started on sotalol today and will likely be started on apixaban upon discharge if insurance covers or warfarin ACUTE ON CHRONIC RESPIRATORY FAILURE: with Hypoxemia and hypercapnia -likely secondary to COPD exacerbation -CXR: no infiltrate, no pulmonary congestion -afebrile, mild leukocytosis -negative troponin, BNP: 110 -O2 sats remain: 90's on 3L -AB.38, 69, 62 -influenza negative -MRSA swab negative -blood cultures pending -Xopenex/Atrovent nebs q 4 -on Levaquin for 2 days, but stopped as he does not likely have a respiratory infection and also the patient was started on sotalol today -Solumedrol 40mg IV Q6H, will decrease to q8 hours -continue ellipta -Pulmonology consulted, appreciate recommendations POSSIBLE UTI: -urine culture negative CHRONIC LYMPHEDEMA: of B/L LE -Lasix 40mg IV bid as patient had stopped taking lasix at home prior to admission -continue home po potassium -TTE: EF 55-60%, grade I diastolic dysfunction, no significant valvulopathy -was started on vancomycin to cover possible cellulitis, will stop this as more likely related to his known chronic lymphedema and venous stasis -US LE r/o DVT -wound care consulted DEPRESSION/ANXIETY: -continue zoloft -continue ativan prn anxiety Current Inpatient Medications: Current Inpatient Medications Medications (Trade) Dose Ordered Sig/Denisse Route Start Time Stop Time Status Last Admin Dose Admin Acetaminophen (Tylenol Tab) 650 mg Q4H PRN PO 11/15/17 22:45 12/15/17 22:44 Furosemide 40 mg/ Syringe 4 ml @ 4 mls/min BID17 IV 11/15/17 22:45 12/15/17 22:44 11/17/17 16:39 4 MLS/MIN Vancomycin HCl (Consult) 1 ea DAILY PRN N/A 11/15/17 23:04 12/15/17 23:03 Nitroglycerin (Nitrostat Tab) 0.4 mg UD PRN SL 11/15/17 23:00 12/15/17 22:59 Diltiazem HCl (Cardizem Cd Cap) 120 mg BID PO 11/16/17 09:00 12/16/17 08:59 11/17/17 08:27 120 MG Lorazepam (Ativan Tab) 0.5 mg TID PRN PO 11/15/17 23:15 12/15/17 23:14 Sertraline HCl (Zoloft Tab) 50 mg HS PO 11/16/17 21:00 12/16/17 20:59 11/16/17 21:20 50 MG Miscellaneous Information (Order Awaiting Action) 1 ea QS N/A 11/16/17 08:00 12/16/17 07:59 Lactobacillus Acidophilus (Floranex Tab) 1 tab DAILY PO 11/16/17 09:00 12/16/17 08:59 11/17/17 08:26 1 TAB Potassium Chloride (Klor-Con M10) 10 meq DAILY PO 11/15/17 23:15 12/15/17 23:14 11/17/17 08:28 10 MEQ Miscellaneous Information (Order Awaiting Action) 1 ea QS N/A 11/16/17 08:00 12/16/17 07:59 Ipratropium [place] (Atrovent 0.02% 0.5MG/2.5ML Neb) 0.5 mg Q6R INH 11/16/17 03:00 12/16/17 02:59 11/17/17 14:30 0.5 MG Levalbuterol (Xopenex 1.25MG/ 0.5ML Neb) 1.25 mg Q6R INH 11/16/17 03:00 12/16/17 02:59 11/17/17 14:30 1.25 MG Ipratropium [place] (Atrovent 0.02% 0.5MG/2.5ML Neb) 0.5 mg Q4H PRN INH 11/15/17 23:30 12/15/17 23:29 Levalbuterol (Xopenex 0.63 Mg/ 3 Ml Neb) 0.63 mg Q4H PRN INH 11/15/17 23:30 12/15/17 23:29 Vancomycin HCl 1750 mg/Sodium Chloride 535 ml @ 200 mls/hr Q10H IV 11/16/17 12:00 11/26/17 00:59 11/17/17 18:29 200 MLS/HR Heparin Sodium/ Dextrose 500 ml @ 24 mls/hr [id number] PRN IV 11/17/17 05:00 12/17/17 04:59 11/17/17 05:26 20 MLS/HR Sotalol HCl (Betapace Tab) 80 mg BID PO 11/17/17 21:00 12/17/17 20:59 Methylprednisolone Sodium Succinate 40 mg/Syringe 0.64 ml @ 1.5 mls/min Q8 IV 11/17/17 14:00 12/16/17 00:00 11/17/17 14:02 1.5 MLS/MIN Warfarin Sodium (Coumadin Tab) 5 mg DAILY@16 PO 11/17/17 16:00 12/17/17 15:59 11/17/17 16:39 5 MG
[2017-11-17 19:42] LABS: PTT PATIENT 52.5 SECONDS (21.0-31.0)
[2017-11-17] MEDS: LORAZEPAM 0.5 MG TAB PO PRN (20:59)
[2017-11-17] MEDS: SOTALOL HCL 80 MG TAB PO SCH (20:59)
[2017-11-17] MEDS: SERTRALINE HCL 50 MG TAB PO SCH (20:59)
[2017-11-18] VITALS (13 sets, daily range): BP systolic 107–131; BP diastolic 62–80; PULSE 64–86; TEMP 36.3–37; O2SAT 91–98
[2017-11-18] MEDS: LEVALBUTEROL 1.25MG/0.5ML NEB INH SCH ×4 (01:59→19:43)
[2017-11-18] MEDS: IPRATROPIUM BROMIDE NEB SOLN 0.02% 2.5 ML VIAL INH SCH ×4 (01:59→19:43)
[2017-11-18] MEDS: HEPARIN 25,000 UNIT/500ML D5W 500 ML IV PRN ×2 (05:15→08:46)
[2017-11-18] MEDS: METHYLPREDNISOLONE IV 40 MG in SYRINGE 0 ML IV SCH ×2 (05:16→21:34)
[2017-11-18 06:57] LABS: HEMATOCRIT 43.3 % (42-52); HEMOGLOBIN 13.4 g/dL (14.0-18.0); MEAN CELL VOLUME 95.6 fL (80-100); MEAN CORPUSCULAR HEMOGLOBIN 29.6 pg (25-34); MEAN CORPUSCULAR HGB CONC 30.9 g/dl (32-36); MEAN PLATELET VOLUME 9.4 fL (7.4-10.4); PLATELET COUNT 145 K/uL (130-400); RED CELL DISTRIBUTION WIDTH CV 13.1 % (11.5-14.5); WHITE BLOOD COUNT 14.72 K/uL (4.8-10.8)
[2017-11-18 07:20] LABS: INR 1.1 (0.9-1.1); PTT PATIENT 41.5 SECONDS (21.0-31.0)
[2017-11-18 07:31] LABS: CALCIUM 8.6 mg/dl (8.5-10.1); CREATININE 1.07 mg/dl (0.60-1.40); POTASSIUM 3.7 mmol/L (3.5-5.1)
[2017-11-18] MEDS: ANORO ELLIPTA~ORDER AWAITING ACTION SCH ×3 (08:00→23:38)
[2017-11-18] MEDS: FUROSEMIDE INJ 40 MG in SYRINGE 0 ML IV SCH ×2 (08:26→16:34)
[2017-11-18] MEDS: POTASSIUM CHLORIDE 10 MEQ TABCR PO SCH (08:27)
[2017-11-18] MEDS: DILTIAZEM HCL 120 MG CAPCR PO SCH (08:27)
[2017-11-18] MEDS: SOTALOL HCL 80 MG TAB PO SCH ×2 (08:27→21:35)
[2017-11-18] MEDS: LACTOBACILLUS ACIDOPHILUS (FLORANEX) TAB PO SCH (08:28)
[2017-11-18] MEDS: NICOTINE 14 MG/24 HR TDSY TD SCH (08:28)
[2017-11-18] MEDS ORDERED: HEPARIN IV BOLUS 4,000 UNIT in SYRINGE 0 ML IV ONE (08:30)
--- NOTE | 2017-11-18 10:54 | PULMONARY PROGRESS NOTE ---
DATE: 11/18/2017 TIME: 10:25 a.m. SUBJECTIVE: The patient is very tired today. He states that he slept okay. He did not want to wear the BiPAP last night. We tried it on him for 1-2 hours in the afternoon. He states he tolerated it. However, he has been sitting forward and putting his head on a pillow on his table in front of him. He has not been able to lie back. He states that he was getting air leaks when he would do that. I discussed with him the fact that he has a very high pCO2 level and we are trying to use BiPAP as an aid to try to improve the carbon dioxide level. He is willing to try this again and see how it goes. We are trying to use very low pressures on the BiPAP because he has a history of pneumothorax in the past and he does have advanced emphysema. Early yesterday, the patient did go into atrial fibrillation. I believe he has been in and out of atrial fibrillation since then. Cardiology is now seeing the patient. OBJECTIVE: GENERAL: The patient looked fatigued. When I went in, he had his head weaning forward on his table with a pillow. He appeared to sleep, but he did respond quickly when I spoke to him. He is oriented. HEART: The patient's heart rate is 70 per minute. His rhythm at times is regular and at times is irregular. LUNGS: Lung mooney reveal severely diminished breath sounds bilaterally. Respiratory rate was 18. Oxygen saturation was 98% on 2 liters. Blood pressure was 109/72. EXTREMITIES: Reveal marked chronic changes from lymphedema as noted previously. LABORATORY DATA: The patient has been on IV heparin. His PTT this morning was 41.5. Electrolytes today show sodium 138, potassium 3.7, chloride 96, and bicarbonate 41. IMPRESSIONS: 1. Chronic obstructive pulmonary disease with exacerbation. 2. Severe emphysema. 3. Lymphedema. 4. Status post left pneumothorax with VATS pleurodesis. 5. Left lung nodule -- smaller than prior. COMMENTS AND RECOMMENDATIONS: The patient is going to try the BiPAP once again. We will do this just to see how well he tolerates it. As noted, we want to use low pressures. Coumadin has been started. He is on levalbuterol and ipratropium by nebulizer q. 6 hours. I would continue that. If he would have recurrence of the rapid rate with AFib, would decrease the levalbuterol to the 0.63 dosage. I think we can decrease the methylprednisolone dosage.
[2017-11-18] MEDS ORDERED: POTASSIUM CHLORIDE 10 MEQ TABCR PO STA (11:01)
--- NOTE | 2017-11-18 11:08 | Cardiology Follow-Up ---
Subjective General Date of Service: Nov 18, 2017. Chief Complaint: follow up AF Pt evaluation today including: conversation w/ patient History of Present Illness The patient is a 62 year old male seen in follow up. No additional AF noted on telemetry yesterday and overnight. EKG performed this morning. at 7:39 AM revealed sinus rhythm at 62 bpm, with corrected QT interval 428 ms. Telemetry otherwise revealed sinus rhythm sinus bradycardia with heart rates as low as 40 to 50 beat per minute range during anticipated hours of sleep. Patient has received first 3 doses of sotalol 80 mg thus far. Allergies Coded Allergies: No Known Allergies (Unverified , 05/18/17) Social History Smoking Status: Former Smoker Hx Tobacco Use In Past Year?: No Hx Alcohol Use - Type And Amou: No Hx Substance Use - Type And Am: No Problem List Medical Problems: (1) COPD (chronic obstructive pulmonary disease) Status: Chronic (2) COPD with acute exacerbation Status: Acute (3) Hypoxia Status: Acute (4) Swelling of left extremity Status: Acute (5) Swelling of right extremity Status: Acute Physical Exam Vital Signs Last Vital Signs Documentation Date Time Temp Pulse Resp B/P (MAP) Pulse Ox O2 Delivery O2 Flow Rate FiO2 11/18/17 08:24 73 109/72 (84) 11/18/17 08:00 Nasal Cannula 2.0 11/18/17 07:32 16 98 11/18/17 07:12 36.6 Physical Exam Constitutional: Level of Distress: NAD ENMT: normal ENT inspection Neck: supple, trachea midline Lungs: Auscultation: no wheezing, no rales/crackles Cardiovascular: Heart Auscultation: no murmurs, no rubs Abdomen: Inspection & Palpation: soft, non-distended Extremities: pertinent finding (findings of chronic lymphedema, with scaly skin , no significant drainage or erythema, edema is mildly improved compared to yesterday) Neurologic: Gait & Station: pertinent finding (a focal neurologic deficits) Assessment and Plan Assessment and Plan Impression: 62-year-old male 1. Recurrent symptomatic paroxysmal atrial fibrillation, now back in sinus rhythm. 2. Emphysema, acute exacerbation COPD 3. Chronic noncardiac lower extremity edema, attributed to edema 4. Mild hypokalemia Plan: Reduce diltiazem dose from 120 mg of Cardizem CD twice a day to Cardizem CD 80 mg by mouth daily in a.m. next dose 11/19/70. Continue sotalol 80 mg twice a day. He is to remain on telemetry for first 6 doses. Repeat EKG a 11/19/70. Cost of direct oral anticoagulant therapy was prohibitive, therefore transition from unfractionated heparin infusion to Coumadin for stroke prophylaxis. Daily INR. Continue diuretic therapy for edema. Increase potassium chloride supplementation 20 mEq daily. Laboratory Results Last 24 Hours Test 11/17/17 11:20 11/17/17 17:21 11/17/17 19:12 11/18/17 06:39 Activated Partial Thromboplast Time 30.8 SECONDS 52.5 SECONDS 41.5 SECONDS Partial Thromboplastin Ratio 1.2 2.0 1.6 Vancomycin Level Trough 23.5 mcg/ml White Blood Count 14.72 K/uL Red Blood Count 4.53 M/uL Hemoglobin 13.4 g/dL Hematocrit 43.3 % Mean Corpuscular Volume 95.6 fL Mean Corpuscular Hemoglobin 29.6 pg Mean Corpuscular Hemoglobin Concent 30.9 g/dl RDW Standard Deviation 45.0 fL RDW Coefficient of Variation 13.1 % Platelet Count 145 K/uL Mean Platelet Volume 9.4 fL Prothrombin Time 11.1 SECONDS Prothromb Time International Ratio 1.1 Sodium Level 138 mmol/L Potassium Level 3.7 mmol/L Chloride Level 96 mmol/L Carbon Dioxide Level 41 mmol/L Anion Gap 1.0 mmol/L Blood Urea Nitrogen 30 mg/dl Creatinine 1.07 mg/dl Est Creatinine Clear Calc Drug Dose 86.1 ml/min Estimated GFR () 85.8 Estimated GFR (Non- 74.0 BUN/Creatinine Ratio 27.8 Random Glucose 131 mg/dl Calcium Level 8.6 mg/dl Magnesium Level 2.4 mg/dl
[2017-11-18 15:26] LABS: PTT PATIENT 58.4 SECONDS (21.0-31.0)
[2017-11-18] MEDS: WARFARIN SOD 5 MG TAB PO SCH (16:35)
--- NOTE | 2017-11-18 19:23 | Progress Note ---
Medicine Progress Note Date & Time of Visit: Nov 18, 2017 at 19:23. Subjective Patient reports feeling ok, just gets tired very quickly. States he had been avoiding coming to the hospital for a while because he thought he was going to get better. No overnight events noted. Was ordered a Bipap yesterday but has not kept it on for longer than an hour. Was encouraged to keep it on longer because of his CO2 retention. No other complaints at this time. Objective Last 8 Hrs Date Time Temp Pulse Resp B/P (MAP) Pulse Ox O2 Delivery O2 Flow Rate FiO2 11/18/17 16:00 Nasal Cannula 2.0 11/18/17 14:28 36.4 76 18 114/71 (85) 93 BiPAP 11/18/17 14:13 93 2.0 11/18/17 14:06 73 16 97 Nasal Cannula 2.0 11/18/17 13:14 91 Nasal Cannula 2.0 11/18/17 12:00 Nasal Cannula 2.0 11/18/17 11:41 36.5 71 18 131/80 (97) 92 Nasal Cannula 2.0 Physical Exam: GENERAL: Patient is in no acute distress. HEENT: No acute trauma, normocephalic, mucous membranes moist, no nasal congestion, no scleral icterus, conjunctivae clear NECK: No stridor, trachea is midline. LUNGS: Still diminished bilaterally, no wheeze, no rhonchi, breath sounds equal. HEART: Without murmurs gallops or rubs, regular rate and rhythm. ABDOMEN: Soft, nontender, bowel sounds positive, nondistended EXTREMITIES: No cyanosis; B/L LE lymphedema with stasis skin changes on both legs; Edema in R>L NEUROLOGIC: Oriented x 3, no acute motor or sensory deficits, no focal weakness. SKIN: No rash, no jaundice, no diaphoresis. Laboratory Results: Last 24 Hours Test 11/18/17 06:39 11/18/17 14:44 White Blood Count 14.72 K/uL Red Blood Count 4.53 M/uL Hemoglobin 13.4 g/dL Hematocrit 43.3 % Mean Corpuscular Volume 95.6 fL Mean Corpuscular Hemoglobin 29.6 pg Mean Corpuscular Hemoglobin Concent 30.9 g/dl RDW Standard Deviation 45.0 fL RDW Coefficient of Variation 13.1 % Platelet Count 145 K/uL Mean Platelet Volume 9.4 fL Prothrombin Time 11.1 SECONDS Prothromb Time International Ratio 1.1 Activated Partial Thromboplast Time 41.5 SECONDS 58.4 SECONDS Partial Thromboplastin Ratio 1.6 2.2 Sodium Level 138 mmol/L Potassium Level 3.7 mmol/L Chloride Level 96 mmol/L Carbon Dioxide Level 41 mmol/L Anion Gap 1.0 mmol/L Blood Urea Nitrogen 30 mg/dl Creatinine 1.07 mg/dl Est Creatinine Clear Calc Drug Dose 86.1 ml/min Estimated GFR () 85.8 Estimated GFR (Non- 74.0 BUN/Creatinine Ratio 27.8 Random Glucose 131 mg/dl Calcium Level 8.6 mg/dl Magnesium Level 2.4 mg/dl Assessment & Plan PAROXYSMAL A FIB: -has remained in sinus rhythm since converting from A fib -was started on heparin IV drip and PO cardizem initially -Cardiology consulted, appreciate recs, patient was started on sotalol and warfarin; cardizem dose decreased ACUTE ON CHRONIC RESPIRATORY FAILURE: with Hypoxemia and hypercapnia -likely secondary to COPD exacerbation -CXR: no infiltrate, no pulmonary congestion -afebrile, mild leukocytosis -negative troponin, BNP: 110 -O2 sats remain: 90's on 3L -AB.38, 69, 62 -influenza negative -MRSA swab negative -blood cultures pending -Xopenex/Atrovent nebs q 4 -on Levaquin for 2 days, but stopped as he does not likely have a respiratory infection -Solumedrol IV further decreased to BID per Pulm -continue ellipta -Pulmonology consulted, appreciate recommendations POSSIBLE UTI: -urine culture negative CHRONIC LYMPHEDEMA: of B/L LE -Lasix 40mg IV bid as patient had stopped taking lasix at home prior to admission -continue home po potassium -TTE: EF 55-60%, grade I diastolic dysfunction, no significant valvulopathy -was started on vancomycin to cover possible cellulitis, stopped this as more likely related to his known chronic lymphedema and venous stasis -US LE r/o DVT -wound care consulted DEPRESSION/ANXIETY: -continue zoloft -continue ativan prn anxiety Current Inpatient Medications: Current Inpatient Medications Medications (Trade) Dose Ordered Sig/D[place]isse Route Start Time Stop Time Status Last Admin Dose Admin Acetaminophen (Tylenol Tab) 650 mg Q4H PRN PO 11/15/17 22:45 12/15/17 22:44 Furosemide 40 mg/ Syringe 4 ml @ 4 mls/min BID17 IV 11/15/17 22:45 12/15/17 22:44 11/18/17 16:34 4 MLS/MIN Nitroglycerin (Nitrostat Tab) 0.4 mg UD PRN SL 11/15/17 23:00 12/15/17 22:59 Lorazepam (Ativan Tab) 0.5 mg TID PRN PO 11/15/17 23:15 12/15/17 23:14 11/17/17 20:59 0.5 MG Sertraline HCl (Zoloft Tab) 50 mg HS PO 11/16/17 21:00 12/16/17 20:59 11/17/17 20:59 50 MG Miscellaneous Information (Order Awaiting Action) 1 ea QS N/A 11/16/17 08:00 12/16/17 07:59 Lactobacillus Acidophilus (Floranex Tab) 1 tab DAILY PO 11/16/17 09:00 12/16/17 08:59 11/18/17 08:28 1 TAB Miscellaneous Information (Order Awaiting Action) 1 ea QS N/A 11/16/17 08:00 12/16/17 07:59 Ipratropium [place] (Atrovent 0.02% 0.5MG/2.5ML Neb) 0.5 mg Q6R INH 11/16/17 03:00 12/16/17 02:59 11/18/17 14:06 0.5 MG Levalbuterol (Xopenex 1.25MG/ 0.5ML Neb) 1.25 mg Q6R INH 11/16/17 03:00 12/16/17 02:59 11/18/17 14:06 1.25 MG Ipratropium [place] (Atrovent 0.02% 0.5MG/2.5ML Neb) 0.5 mg Q4H PRN INH 11/15/17 23:30 12/15/17 23:29 Levalbuterol (Xopenex 0.63 Mg/ 3 Ml Neb) 0.63 mg Q4H PRN INH 11/15/17 23:30 12/15/17 23:29 Heparin Sodium/ Dextrose 500 ml @ 26 mls/hr [id number] PRN IV 11/17/17 05:00 12/17/17 04:59 11/18/17 08:46 26 MLS/HR Sotalol HCl (Betapace Tab) 80 mg BID PO 11/17/17 21:00 12/17/17 20:59 11/18/17 08:27 80 MG Warfarin Sodium (Coumadin Tab) 5 mg DAILY@16 PO 11/17/17 16:00 12/17/17 15:59 11/18/17 16:35 5 MG Nicotine (Nicoderm Cq 14MG Patch) 1 patch QAM TD 11/18/17 09:00 12/18/17 08:59 Miscellaneous (Remove Nicoderm Patch) 1 ea HS N/A 11/18/17 21:00 12/18/17 20:59 Methylprednisolone Sodium Succinate 40 mg/Syringe 0.64 ml @ 1.5 mls/min Q12 IV 11/18/17 21:00 12/16/17 00:00 Potassium Chloride (Klor-Con Tab) 20 meq QAM PO 11/19/17 09:00 12/19/17 08:59 Diltiazem HCl (Cardizem Cd Cap) 180 mg QAM PO 11/19/17 09:00 12/19/17 08:59
[2017-11-18] MEDS: SERTRALINE HCL 50 MG TAB PO SCH (21:35)
[2017-11-18] MEDS: LORAZEPAM 0.5 MG TAB PO PRN (21:37)
[2017-11-19] VITALS (15 sets, daily range): BP systolic 101–132; BP diastolic 71–86; PULSE 53–100; TEMP 36.5–36.9; O2SAT 90–98
[2017-11-19] MEDS: HEPARIN 25,000 UNIT/500ML D5W 500 ML IV PRN ×2 (01:24→19:58)
[2017-11-19] MEDS: IPRATROPIUM BROMIDE NEB SOLN 0.02% 2.5 ML VIAL INH SCH ×4 (02:37→19:41)
[2017-11-19] MEDS: LEVALBUTEROL 1.25MG/0.5ML NEB INH SCH ×4 (02:37→19:41)
[2017-11-19 06:54] LABS: HEMATOCRIT 43.3 % (42-52); HEMOGLOBIN 13.3 g/dL (14.0-18.0); MEAN CELL VOLUME 95.2 fL (80-100); MEAN CORPUSCULAR HEMOGLOBIN 29.2 pg (25-34); MEAN CORPUSCULAR HGB CONC 30.7 g/dl (32-36); MEAN PLATELET VOLUME 9.8 fL (7.4-10.4); PLATELET COUNT 145 K/uL (130-400); RED CELL DISTRIBUTION WIDTH SD 44.9 fL (36.4-46.3); WHITE BLOOD COUNT 16.05 K/uL (4.8-10.8)
[2017-11-19 07:10] LABS: INR 1.3 (0.9-1.1)
[2017-11-19 07:24] LABS: CALCIUM 8.2 mg/dl (8.5-10.1); CREATININE 0.9 mg/dl (0.60-1.40); POTASSIUM 3.5 mmol/L (3.5-5.1)
[2017-11-19] MEDS: ANORO ELLIPTA~ORDER AWAITING ACTION SCH ×3 (07:55→23:06)
[2017-11-19] MEDS: FUROSEMIDE INJ 40 MG in SYRINGE 0 ML IV SCH ×2 (07:56→16:43)
[2017-11-19] MEDS: METHYLPREDNISOLONE IV 40 MG in SYRINGE 0 ML IV SCH (07:56)
[2017-11-19] MEDS: NICOTINE 14 MG/24 HR TDSY TD SCH (07:56)
[2017-11-19] MEDS: DILTIAZEM HCL 180 MG CAPCR PO SCH (07:57)
[2017-11-19] MEDS: POTASSIUM CHLORIDE 20 MEQ TABCR PO SCH (07:58)
[2017-11-19] MEDS: LACTOBACILLUS ACIDOPHILUS (FLORANEX) TAB PO SCH (07:58)
[2017-11-19] MEDS: SOTALOL HCL 80 MG TAB PO SCH ×2 (07:59→21:06)
--- NOTE | 2017-11-19 16:10 | Cardiology Follow-Up ---
Subjective General Date of Service: Nov 19, 2017. Chief Complaint: follow up AF Pt evaluation today including: conversation w/ patient, physical exam History of Present Illness The patient is a 62 year old male seen in follow up. He still fees tired. Denies palpitations. No AF on telemetry yesterday , overnight last night, or thus far today. EKG this am =Sr at 62 bpm with QTC 410 ms. Allergies Coded Allergies: No Known Allergies (Unverified , 05/18/17) Social History Smoking Status: Former Smoker Hx Tobacco Use In Past Year?: No Hx Alcohol Use - Type And Amou: No Hx Substance Use - Type And Am: No Problem List Medical Problems: (1) COPD (chronic obstructive pulmonary disease) Status: Chronic (2) COPD with acute exacerbation Status: Acute (3) Hypoxia Status: Acute (4) Swelling of left extremity Status: Acute (5) Swelling of right extremity Status: Acute Physical Exam Vital Signs Last Vital Signs Documentation Date Time Temp Pulse Resp B/P (MAP) Pulse Ox O2 Delivery O2 Flow Rate FiO2 11/19/17 14:42 36.9 69 18 116/71 (86) 97 Nasal Cannula 2.0 Physical Exam Constitutional: Level of Distress: NAD ENMT: normal ENT inspection Neck: supple, trachea midline Lungs: Auscultation: no wheezing, no rales/crackles Cardiovascular: Heart Auscultation: no murmurs, no rubs Abdomen: Inspection & Palpation: soft, non-distended Extremities: pertinent finding (findings of chronic lymphedema, with scaly skin , no significant drainage or erythema, edema is mildly improved compared to yesterday) Neurologic: Gait & Station: pertinent finding (a focal neurologic deficits) Assessment and Plan Assessment and Plan Impression: 62-year-old male 1. Recurrent symptomatic paroxysmal atrial fibrillation, now back in sinus rhythm. 2. Emphysema, acute exacerbation COPD 3. Chronic noncardiac lower extremity edema, attributed to edema 4. Mild hypokalemia Plan: Continue sotalol load, has had 5 doses thus far. Diltiazem dose reduced to 180 mg daily, and BP HR is stable. Edema improving. Remain on telemetry , 6th dose of sotalol due tonight. Laboratory Results Last 24 Hours Test 11/19/17 06:15 White Blood Count 16.05 K/uL Red Blood Count 4.55 M/uL Hemoglobin 13.3 g/dL Hematocrit 43.3 % Mean Corpuscular Volume 95.2 fL Mean Corpuscular Hemoglobin 29.2 pg Mean Corpuscular Hemoglobin Concent 30.7 g/dl RDW Standard Deviation 44.9 fL RDW Coefficient of Variation 13.0 % Platelet Count 145 K/uL Mean Platelet Volume 9.8 fL Prothrombin Time 13.5 SECONDS Prothromb Time International Ratio 1.3 Activated Partial Thromboplast Time 52.0 SECONDS Partial Thromboplastin Ratio 2.0 Sodium Level 140 mmol/L Potassium Level 3.5 mmol/L Chloride Level 93 mmol/L Carbon Dioxide Level 45 mmol/L Anion Gap 2.0 mmol/L Blood Urea Nitrogen 32 mg/dl Creatinine 0.90 mg/dl Est Creatinine Clear Calc Drug Dose 102.4 ml/min Estimated GFR () 105.7 Estimated GFR (Non- 91.2 BUN/Creatinine Ratio 35.4 Random Glucose 130 mg/dl Calcium Level 8.2 mg/dl
[2017-11-19] MEDS: WARFARIN SOD 5 MG TAB PO SCH (16:43)
--- NOTE | 2017-11-19 17:26 | PULMONARY PROGRESS NOTE ---
DATE: 11/19/2017 TIME: 04:00 p.m. SUBJECTIVE: The patient is more awake today. He feels that his breathing is a little better. He still feels tired. He wore the BiPAP for about an hour last night. He states he did fall asleep. Nursing staff then came in to do their assessment and he elected to have the bipap removed. He did wear it during the day apparently for a couple of hours and he thinks he may be able to adapt to it. OBJECTIVE: GENERAL: The patient was much more alert than yesterday. VITAL SIGNS: Temperature is 36.9. ENT: Unchanged. HEART: The heart rate was 64 per minute. The rhythm is regular. Blood pressure 116/71. CHEST: Respiratory rate is 18 breaths per minute. The lung mooney revealed severely diminished breath sounds. No active wheezing heard. Saturation was 97% on 2 liters. EXTREMITIES: The patient's lymphedema in the lower extremities look the same to me. He believes that there is less edema. He has not had significant diuresis either yesterday or today. IMPRESSIONS: 1. Chronic obstructive pulmonary disease exacerbation. 2. Emphysema. 3. Lymphedema. 4. Status post left pneumothorax with VATS procedure with pleurodesis. 5. Left lung nodule. RECOMMENDATIONS: The patient seems clinically improved today. His CO2 on his electrolytes keeps rising. It was up to 45. In light of the fact that he is more alert today, I do not believe we need to do an arterial blood gas. I would prefer not to with him being on blood thinners. However, if he was severely lethargic and hard to arouse, it would need to be done. I believe we can change his methylprednisolone to prednisone. As noted, he will continue to try the BiPAP. Dr. Villafana will be on for pulmonary this coming week. EPI
--- NOTE | 2017-11-19 18:47 | Progress Note ---
Medicine Progress Note Date & Time of Visit: Nov 19, 2017 at 18:47. Subjective Patient reports not being able to sleep laying back and that is why he states he has not been using the bipap. He is aware of the rising CO2 level and the consequences of that. Only complaint is being bored but feeling as though he gets so easily tired and SOB with any activity. No overnight events noted otherwise. Tolerating PO. Objective Last 8 Hrs Date Time Temp Pulse Resp B/P (MAP) Pulse Ox O2 Delivery O2 Flow Rate FiO2 11/19/17 16:39 80 108/74 (85) 11/19/17 16:00 Nasal Cannula 2.0 11/19/17 14:42 36.9 69 18 116/71 (86) 97 Nasal Cannula 2.0 11/19/17 14:14 89 16 98 Nasal Cannula 2.0 11/19/17 12:00 Nasal Cannula 2.0 11/19/17 11:12 36.5 74 18 101/72 (82) 98 BiPAP Physical Exam: GENERAL: Patient is in no acute distress. HEENT: No acute trauma, normocephalic, mucous membranes moist, no nasal congestion, no scleral icterus, conjunctivae clear NECK: No stridor, trachea is midline. LUNGS: Still diminished bilaterally, no wheeze, no rhonchi, breath sounds equal. HEART: Without murmurs gallops or rubs, regular rate and rhythm. ABDOMEN: Soft, nontender, bowel sounds positive, nondistended EXTREMITIES: No cyanosis; B/L LE lymphedema with stasis skin changes on both legs; Edema in R>L NEUROLOGIC: Oriented x 3, no acute motor or sensory deficits, no focal weakness. SKIN: No rash, no jaundice, no diaphoresis. LE skin with stasis changes, dry and scaly Laboratory Results: Last 24 Hours Test 11/19/17 06:15 White Blood Count 16.05 K/uL Red Blood Count 4.55 M/uL Hemoglobin 13.3 g/dL Hematocrit 43.3 % Mean Corpuscular Volume 95.2 fL Mean Corpuscular Hemoglobin 29.2 pg Mean Corpuscular Hemoglobin Concent 30.7 g/dl RDW Standard Deviation 44.9 fL RDW Coefficient of Variation 13.0 % Platelet Count 145 K/uL Mean Platelet Volume 9.8 fL Prothrombin Time 13.5 SECONDS Prothromb Time International Ratio 1.3 Activated Partial Thromboplast Time 52.0 SECONDS Partial Thromboplastin Ratio 2.0 Sodium Level 140 mmol/L Potassium Level 3.5 mmol/L Chloride Level 93 mmol/L Carbon Dioxide Level 45 mmol/L Anion Gap 2.0 mmol/L Blood Urea Nitrogen 32 mg/dl Creatinine 0.90 mg/dl Est Creatinine Clear Calc Drug Dose 102.4 ml/min Estimated GFR () 105.7 Estimated GFR (Non- 91.2 BUN/Creatinine Ratio 35.4 Random Glucose 130 mg/dl Calcium Level 8.2 mg/dl Assessment & Plan PAROXYSMAL A FIB: -has remained in sinus rhythm since converting from A fib -was started on heparin IV drip and cardizem initially -Cardiology consulted, appreciate recs, patient was started on sotalol and warfarin; cardizem dose is being titrated down -on coumadin, INR 1.3 ACUTE ON CHRONIC RESPIRATORY FAILURE: with Hypoxemia and hypercapnia -likely secondary to COPD exacerbation -CXR: no infiltrate, no pulmonary congestion -afebrile, mild leukocytosis -negative troponin, BNP: 110 -O2 sats remain: 90's on 3L -AB.38/69/62 -influenza negative -MRSA swab negative -blood cultures pending -Xopenex/Atrovent nebs q 4 -on Levaquin for 2 days, but stopped as he does not likely have a respiratory infection -Solumedrol IV further decreased to BID per Pulm, likely to be switched to po tomorrow -continue ellipta -Pulmonology consulted, appreciate recommendations -CO2 is trending up, but clinically patient reports feeling improvement; no change in mentation; question if this rising CO2 is due the diuretic therapy POSSIBLE UTI: -urine culture negative CHRONIC LYMPHEDEMA: of B/L LE -Lasix 40mg IV bid as patient had stopped taking lasix at home prior to admission -continue home po potassium -TTE: EF 55-60%, grade I diastolic dysfunction, no significant valvulopathy -was started on vancomycin to cover possible cellulitis, stopped this as more likely related to his known chronic lymphedema and venous stasis -US LE r/o DVT -wound care consulted DEPRESSION/ANXIETY: -continue zoloft -continue ativan prn anxiety Current Inpatient Medications: Current Inpatient Medications Medications (Trade) Dose Ordered Sig/Denisse Route Start Time Stop Time Status Last Admin Dose Admin Acetaminophen (Tylenol Tab) 650 mg Q4H PRN PO 11/15/17 22:45 12/15/17 22:44 Furosemide 40 mg/ Syringe 4 ml @ 4 mls/min BID17 IV 11/15/17 22:45 12/15/17 22:44 11/19/17 16:43 4 MLS/MIN Nitroglycerin (Nitrostat Tab) 0.4 mg UD PRN SL 11/15/17 23:00 12/15/17 22:59 Lorazepam (Ativan Tab) 0.5 mg TID PRN PO 11/15/17 23:15 12/15/17 23:14 11/18/17 21:37 0.5 MG Sertraline HCl (Zoloft Tab) 50 mg HS PO 11/16/17 21:00 12/16/17 20:59 11/18/17 21:35 50 MG Miscellaneous Information (Order Awaiting Action) 1 ea QS N/A 11/16/17 08:00 12/16/17 07:59 Lactobacillus Acidophilus (Floranex Tab) 1 tab DAILY PO 11/16/17 09:00 12/16/17 08:59 11/19/17 07:58 1 TAB Miscellaneous Information (Order Awaiting Action) 1 ea QS N/A 11/16/17 08:00 12/16/17 07:59 Ipratropium [place] (Atrovent 0.02% 0.5MG/2.5ML Neb) 0.5 mg Q6R INH 11/16/17 03:00 12/16/17 02:59 11/19/17 14:14 0.5 MG Levalbuterol (Xopenex 1.25MG/ 0.5ML Neb) 1.25 mg Q6R INH 11/16/17 03:00 12/16/17 02:59 11/19/17 14:14 1.25 MG Ipratropium [place] (Atrovent 0.02% 0.5MG/2.5ML Neb) 0.5 mg Q4H PRN INH 11/15/17 23:30 12/15/17 23:29 Levalbuterol (Xopenex 0.63 Mg/ 3 Ml Neb) 0.63 mg Q4H PRN INH 11/15/17 23:30 12/15/17 23:29 Heparin Sodium/ Dextrose 500 ml @ 26 mls/hr [id number] PRN IV 11/17/17 05:00 12/17/17 04:59 11/19/17 01:24 26 MLS/HR Sotalol HCl (Betapace Tab) 80 mg BID PO 11/17/17 21:00 12/17/17 20:59 11/19/17 07:59 80 MG Warfarin Sodium (Coumadin Tab) 5 mg DAILY@16 PO 11/17/17 16:00 12/17/17 15:59 11/19/17 16:43 5 MG Nicotine (Nicoderm Cq 14MG Patch) 1 patch QAM TD 11/18/17 09:00 12/18/17 08:59 Miscellaneous (Remove Nicoderm Patch) 1 ea HS N/A 11/18/17 21:00 12/18/17 20:59 Potassium Chloride (Klor-Con Tab) 20 meq QAM PO 11/19/17 09:00 12/19/17 08:59 11/19/17 07:58 20 MEQ Diltiazem HCl (Cardizem Cd Cap) 180 mg QAM PO 11/19/17 09:00 12/19/17 08:59 11/19/17 07:57 180 MG Prednisone (PredniSONE TAB) 40 mg DAILY PO 11/20/17 09:00 12/20/17 08:59
[2017-11-19] MEDS: LORAZEPAM 0.5 MG TAB PO PRN (21:05)
[2017-11-19] MEDS: SERTRALINE HCL 50 MG TAB PO SCH (21:06)
[2017-11-20] VITALS (12 sets, daily range): BP systolic 100–129; BP diastolic 60–79; PULSE 57–89; TEMP 36.6; O2SAT 93–100
[2017-11-20] MEDS: LEVALBUTEROL 1.25MG/0.5ML NEB INH SCH ×4 (02:20→20:37)
[2017-11-20] MEDS: IPRATROPIUM BROMIDE NEB SOLN 0.02% 2.5 ML VIAL INH SCH ×4 (02:20→20:37)
[2017-11-20 07:09] LABS: INR 1.9 (0.9-1.1)
[2017-11-20 07:11] LABS: CALCIUM 8.4 mg/dl (8.5-10.1); CREATININE 1.04 mg/dl (0.60-1.40); POTASSIUM 3.8 mmol/L (3.5-5.1)
[2017-11-20 07:16] LABS: PTT PATIENT 67.6 SECONDS (21.0-31.0)
[2017-11-20] MEDS: LACTOBACILLUS ACIDOPHILUS (FLORANEX) TAB PO SCH (08:30)
[2017-11-20] MEDS: FUROSEMIDE INJ 40 MG in SYRINGE 0 ML IV SCH ×2 (08:30→09:35)
[2017-11-20] MEDS: ANORO ELLIPTA~ORDER AWAITING ACTION SCH ×3 (08:30→23:48)
[2017-11-20] MEDS: SOTALOL HCL 80 MG TAB PO SCH ×3 (08:31→20:32)
[2017-11-20] MEDS: POTASSIUM CHLORIDE 20 MEQ TABCR PO SCH (08:31)
[2017-11-20] MEDS: DILTIAZEM HCL 180 MG CAPCR PO SCH ×2 (08:31→09:35)
[2017-11-20] MEDS: NICOTINE 14 MG/24 HR TDSY TD SCH (08:33)
[2017-11-20] MEDS ORDERED: NURSING VERBAL MED ORDER ONE (10:45)
--- NOTE | 2017-11-20 13:02 | Pulmonology Progress Note ---
Pulmonary Progress Note Date of Service Nov 20, 2017. Attending Dr. Villafana Subjective Patient seen and examined at bedside. He sitting up in bed. He denies any respiratory symptoms at the current time. States that he slept with BiPAP for about 7 hours overnight. He is feeling much better since admission with much improvement of lower extremity edema. Objective Vital signs reviewed. MAXIMUM TEMPERATURE 36.6, blood pressure 100/60 to 118/79 , pulse 67-81, respiratory rate 16-20, pulse oximetry 98-100% on 2 L General: Patient sleeping, but easily arousable. Awake alert oriented and in no acute respiratory distress. Speaking in full sentences without use of accessory muscles of respiration. Lungs/chest. Diminished breath sounds bilaterally Cardiovascular: S1-S2 regular rate and rhythm Abdomen: Soft, nontender nondistended bowel sounds positive, obese Extremities: Bilateral lower extremity lymphedema. Chronic venous changes bilaterally with dressings in place. Decreased swelling on left lower extremity and foot right lower extremity foot still remains moderately edematous Labs reviewed. Bicarbonate 52 today from 45 yesterday. Medications reviewed. Imaging reviewed. Assessment & Plan 1. Chronic obstructive pulmonary disease exacerbation. 2. Acute on chronic hypercapnic hypoxemic respiratory failure 3. Emphysema. 4. Lymphedema. 5. Status post left pneumothorax with VATS procedure with pleurodesis. 6. Left lung nodule. Mr. Cartwright has less dyspnea on exertion today. He appears to be chronically retaining CO2 based on elevated bicarbonate. Continue with supplemental oxygen to maintain SaO2 between 88-92%. Avoid hyperoxygenation as this can decrease his respiratory drive. Continue with BiPAP at night and when resting. Recommend repeat ABG today.He will likely qualify for BiPAP at home. Continue diuresis per primary team and cardiology. I'll switch patient over to Diamox 500 mg twice a day to see if this can decrease his bicarbonate. Continue to monitor his electrolytes and replete as needed, per primary team. Continue with prednisone taper, nebulizers every 6 hours. Pulmonary will follow. Data Medications: Current Inpatient Medications Medications (Trade) Dose Ordered Sig/Denisse Route Start Time Stop Time Status Last Admin Dose Admin Acetaminophen (Tylenol Tab) 650 mg Q4H PRN PO 11/15/17 22:45 12/15/17 22:44 Nitroglycerin (Nitrostat Tab) 0.4 mg UD PRN SL 11/15/17 23:00 12/15/17 22:59 Lorazepam (Ativan Tab) 0.5 mg TID PRN PO 11/15/17 23:15 12/15/17 23:14 11/19/17 21:05 0.5 MG Sertraline HCl (Zoloft Tab) 50 mg HS PO 11/16/17 21:00 12/16/17 20:59 11/19/17 21:06 50 MG Miscellaneous Information (Order Awaiting Action) 1 ea QS N/A 11/16/17 08:00 12/16/17 07:59 Lactobacillus Acidophilus (Floranex Tab) 1 tab DAILY PO 11/16/17 09:00 12/16/17 08:59 11/20/17 08:30 1 TAB Miscellaneous Information (Order Awaiting Action) 1 ea QS N/A 11/16/17 08:00 12/16/17 07:59 Ipratropium [place] (Atrovent 0.02% 0.5MG/2.5ML Neb) 0.5 mg Q6R INH 11/16/17 03:00 12/16/17 02:59 11/20/17 07:32 0.5 MG Levalbuterol (Xopenex 1.25MG/ 0.5ML Neb) 1.25 mg Q6R INH 11/16/17 03:00 12/16/17 02:59 11/20/17 07:32 1.25 MG Ipratropium [place] (Atrovent 0.02% 0.5MG/2.5ML Neb) 0.5 mg Q4H PRN INH 11/15/17 23:30 12/15/17 23:29 Levalbuterol (Xopenex 0.63 Mg/ 3 Ml Neb) 0.63 mg Q4H PRN INH 11/15/17 23:30 12/15/17 23:29 Heparin Sodium/ Dextrose 500 ml @ 26 mls/hr [id number] PRN IV 11/17/17 05:00 12/17/17 04:59 11/19/17 19:58 26 MLS/HR Sotalol HCl (Betapace Tab) 80 mg BID PO 11/17/17 21:00 12/17/17 20:59 11/20/17 09:35 80 MG Warfarin Sodium (Coumadin Tab) 5 mg DAILY@16 PO 11/17/17 16:00 12/17/17 15:59 11/19/17 16:43 5 MG Nicotine (Nicoderm Cq 14MG Patch) 1 patch QAM TD 11/18/17 09:00 12/18/17 08:59 Miscellaneous (Remove Nicoderm Patch) 1 ea HS N/A 11/18/17 21:00 12/18/17 20:59 Potassium Chloride (Klor-Con Tab) 20 meq QAM PO 11/19/17 09:00 12/19/17 08:59 11/20/17 08:31 20 MEQ Diltiazem HCl (Cardizem Cd Cap) 180 mg QAM PO 11/19/17 09:00 12/19/17 08:59 11/19/17 07:57 180 MG Prednisone (PredniSONE TAB) 40 mg DAILY PO 11/20/17 09:00 12/20/17 08:59 11/20/17 08:33 40 MG Multi-Ingredient Ointment (Eucerin Unscented Cr) 1 appln PRN PRN EXT 11/20/17 10:45 12/20/17 10:44 Acetazolamide Sodium 500 mg/ Syringe 5 ml @ 5 mls/min BID IV 11/20/17 21:00 12/20/17 20:59 UNV Vital Signs: Date Time Temp Pulse Resp B/P (MAP) Pulse Ox O2 Delivery O2 Flow Rate FiO2 11/20/17 11:35 36.6 69 18 101/66 (78) 99 2.0 11/20/17 09:35 100/60 (73) 11/20/17 08:00 100 Nasal Cannula 2.0 11/20/17 07:37 36.6 69 20 116/75 (89) 100 2.0 11/20/17 07:32 81 16 98 Nasal Cannula 2.0 11/20/17 05:03 36.6 57 17 118/79 (92) 100 CPAP 2.0 11/20/17 04:00 Nasal Cannula 2.0 11/20/17 00:00 Nasal Cannula 2.0 11/19/17 23:29 78 94 2.0 11/19/17 23:21 36.9 53 18 114/73 (87) 94 Nasal Cannula 2.0 11/19/17 21:08 80 18 109/72 (84) 98 Nasal Cannula 2.0 11/19/17 20:00 Nasal Cannula 2.0 11/19/17 19:41 87 16 98 Nasal Cannula 2.0 11/19/17 18:53 36.9 100 17 112/72 (85) 90 2.0 11/19/17 16:39 80 108/74 (85) 11/19/17 16:00 Nasal Cannula 2.0 11/19/17 14:42 36.9 69 18 116/71 (86) 97 Nasal Cannula 2.0 11/19/17 14:14 89 16 98 Nasal Cannula 2.0 Laboratory Results: Last 24 Hours Test 11/20/17 06:27 11/20/17 12:48 Prothrombin Time 20.1 SECONDS Prothromb Time International Ratio 1.9 Activated Partial Thromboplast Time 67.6 SECONDS Partial Thromboplastin Ratio 2.6 Sodium Level 139 mmol/L Potassium Level 3.8 mmol/L Chloride Level 94 mmol/L Carbon Dioxide Level 52 mmol/L Anion Gap -7.0 mmol/L Blood Urea Nitrogen 27 mg/dl Creatinine 1.04 mg/dl Est Creatinine Clear Calc Drug Dose 88.7 ml/min Estimated GFR () 88.8 Estimated GFR (Non- 76.6 BUN/Creatinine Ratio 26.3 Random Glucose 96 mg/dl Calcium Level 8.4 mg/dl
[2017-11-20] MEDS: HEPARIN 25,000 UNIT/500ML D5W 500 ML IV PRN (14:58)
[2017-11-20] MEDS: EUCERIN CR 120 GM JAR EXT PRN (15:00)
[2017-11-20] MEDS: WARFARIN SOD 5 MG TAB PO SCH (16:32)
--- NOTE | 2017-11-20 16:48 | Cardiology Follow-Up ---
Subjective General Date of Service: Nov 20, 2017. Chief Complaint: follow up AF Pt evaluation today including: conversation w/ patient, physical exam History of Present Illness The patient is a 62 year old male seen in follow-up. His energy is a little bit better today. He notes however significant shortness of breath and fatigue with minimal activity such as walking to the bathroom. Telemetry reveals stable sinus rhythm. EKG performed this morning 11/20/2017 revealed sinus rhythm at 71 bpm with normal corrected QT interval of 415 ms, and occasional premature atrial contractions. Allergies Coded Allergies: No Known Allergies (Unverified , 05/18/17) Social History Smoking Status: Former Smoker Hx Tobacco Use In Past Year?: No Hx Alcohol Use - Type And Amou: No Hx Substance Use - Type And Am: No Problem List Medical Problems: (1) COPD (chronic obstructive pulmonary disease) Status: Chronic (2) COPD with acute exacerbation Status: Acute (3) Hypoxia Status: Acute (4) Swelling of left extremity Status: Acute (5) Swelling of right extremity Status: Acute Physical Exam Vital Signs Last Vital Signs Documentation Date Time Temp Pulse Resp B/P (MAP) Pulse Ox O2 Delivery O2 Flow Rate FiO2 11/20/17 15:32 36.6 78 18 129/77 (94) 94 Nasal Cannula 2.0 Physical Exam Constitutional: Level of Distress: NAD ENMT: normal ENT inspection Neck: supple, trachea midline Lungs: Auscultation: no wheezing, no rales/crackles Cardiovascular: Heart Auscultation: no murmurs, no rubs Abdomen: Inspection & Palpation: soft, non-distended Extremities: pertinent finding (findings of chronic lymphedema, with scaly skin , no significant drainage or erythema, edema is mildly improved compared to yesterday) Neurologic: Gait & Station: pertinent finding (a focal neurologic deficits) Assessment and Plan Assessment and Plan Last Resulted 11/19/17 06:15 Last Resulted 11/20/17 06:27 Past 24 Hours Test 11/20/17 06:27 Range/Units Prothromb Time International Ratio 1.9 H 0.9-1.1 Prothrombin Time 20.1 H 9.0-12.0 SECONDS Impression: 62-year-old male 1. Recurrent symptomatic paroxysmal atrial fibrillation, now back in sinus rhythm. 2. Emphysema, acute exacerbation COPD 3. Chronic noncardiac lower extremity edema, attributed to edema 4. Mild hypokalemia Plan: Discontinue unfractionated heparin as INR is 1.9, which is close enough toward goal of 2-3. Continue Coumadin. Continue sotalol and diltiazem. Agree with holding IV furosemide. His lower extremity edema has improved, and his CO2 has trended up to 52 minutes chemistry panel, with noted chronic elevation in CO2 consistent with his chronic respiratory abnormality, and perhaps superimposed contraction alkalosis. Laboratory Results Last 24 Hours Test 11/20/17 06:27 11/20/17 13:15 Prothrombin Time 20.1 SECONDS Prothromb Time International Ratio 1.9 Activated Partial Thromboplast Time 67.6 SECONDS Partial Thromboplastin Ratio 2.6 Sodium Level 139 mmol/L Potassium Level 3.8 mmol/L Chloride Level 94 mmol/L Carbon Dioxide Level 52 mmol/L Anion Gap -7.0 mmol/L Blood Urea Nitrogen 27 mg/dl Creatinine 1.04 mg/dl Est Creatinine Clear Calc Drug Dose 88.7 ml/min Estimated GFR () 88.8 Estimated GFR (Non- 76.6 BUN/Creatinine Ratio 26.3 Random Glucose 96 mg/dl Calcium Level 8.4 mg/dl Arterial Blood pH 7.37 Arterial Blood Partial Pressure CO2 77 mmHg Arterial Blood Partial Pressure O2 77 mm/Hg Arterial Blood HCO3 43 mmol/L Arterial Blood Oxygen Saturation 94.3 % Arterial Blood Base Excess 14.1 mEq/L Arterial Blood Gas Delivery 2L Nino Test POS
--- NOTE | 2017-11-20 18:31 | Progress Note ---
Medicine Progress Note Date & Time of Visit: Nov 20, 2017 at 18:31. Subjective Patient reports feeling better today, does not feel as SOB today, still feels weak and tired but overall improving. RLE edema not significantly improved, still not at baseline per patient. Denies any complaints otherwise. Was able to use bipap overnight but stated he could not sleep with the bipap on because it requires him to lay on his back and that makes his breathing more difficult. Objective Last 8 Hrs Date Time Temp Pulse Resp B/P (MAP) Pulse Ox O2 Delivery O2 Flow Rate FiO2 11/20/17 16:00 Nasal Cannula 2.0 11/20/17 15:32 36.6 78 18 129/77 (94) 94 Nasal Cannula 2.0 11/20/17 15:02 76 16 98 Nasal Cannula 2.0 11/20/17 12:00 Nasal Cannula 2.0 11/20/17 11:35 36.6 69 18 101/66 (78) 99 2.0 Physical Exam: GENERAL: Patient is in no acute distress. HEENT: No acute trauma, normocephalic, mucous membranes moist, no nasal congestion, no scleral icterus, conjunctivae clear NECK: No stridor, trachea is midline. LUNGS: Still diminished bilaterally, no wheeze, no rhonchi, breath sounds equal. HEART: Without murmurs gallops or rubs, regular rate and rhythm. ABDOMEN: Soft, nontender, bowel sounds positive, nondistended EXTREMITIES: No cyanosis; B/L LE lymphedema with stasis skin changes on both legs; Edema in R>L NEUROLOGIC: Oriented x 3, no acute motor or sensory deficits, no focal weakness. SKIN: No rash, no jaundice, no diaphoresis. LE skin with stasis changes, dry and scaly Laboratory Results: Last 24 Hours Test 11/20/17 06:27 11/20/17 13:15 Prothrombin Time 20.1 SECONDS Prothromb Time International Ratio 1.9 Activated Partial Thromboplast Time 67.6 SECONDS Partial Thromboplastin Ratio 2.6 Sodium Level 139 mmol/L Potassium Level 3.8 mmol/L Chloride Level 94 mmol/L Carbon Dioxide Level 52 mmol/L Anion Gap -7.0 mmol/L Blood Urea Nitrogen 27 mg/dl Creatinine 1.04 mg/dl Est Creatinine Clear Calc Drug Dose 88.7 ml/min Estimated GFR () 88.8 Estimated GFR (Non- 76.6 BUN/Creatinine Ratio 26.3 Random Glucose 96 mg/dl Calcium Level 8.4 mg/dl Arterial Blood pH 7.37 Arterial Blood Partial Pressure CO2 77 mmHg Arterial Blood Partial Pressure O2 77 mm/Hg Arterial Blood HCO3 43 mmol/L Arterial Blood Oxygen Saturation 94.3 % Arterial Blood Base Excess 14.1 mEq/L Arterial Blood Gas Delivery 2L Nino Test POS Assessment & Plan PAROXYSMAL A FIB: -has remained in sinus rhythm since converting from A fib -was started on heparin IV drip and cardizem initially -Cardiology consulted, appreciate recs, patient was started on sotalol and warfarin; cardizem dose is being titrated down -on coumadin, INR 1.9 (with IV heparin for bridge) ACUTE ON CHRONIC RESPIRATORY FAILURE: with Hypoxemia and hypercapnia -likely secondary to COPD exacerbation -CXR: no infiltrate, no pulmonary congestion -afebrile, mild leukocytosis -negative troponin, BNP: 110 -O2 sats remain: 90's on 3L -AB.38/69/62 -influenza negative -MRSA swab negative -blood cultures pending -Xopenex/Atrovent nebs q 4 -on Levaquin for 2 days, but stopped as he does not likely have a respiratory infection -Solumedrol IV initially, now on prednisone -continue ellipta -Pulmonology consulted, appreciate recommendations -patient encouraged to use Bipap at night, was complaint last evening -CO2 is trending up, 45-->52 but clinically patient reports feeling improved; no change in mentation; could also be driven up by the diuretic therapy; Pulm has recommended acetazolamide which will be tried today POSSIBLE UTI: -urine culture negative CHRONIC LYMPHEDEMA: of B/L LE -Lasix 40mg IV bid as patient had stopped taking lasix at home prior to admission -continue home po potassium -TTE: EF 55-60%, grade I diastolic dysfunction, no significant valvulopathy -was started on vancomycin to cover possible cellulitis, stopped this as more likely related to his known chronic lymphedema and venous stasis -US LE r/o DVT -wound care consulted -monitor renal function which has been unchanged while on the diuretics DEPRESSION/ANXIETY: -continue zoloft -continue ativan prn anxiety Current Inpatient Medications: Current Inpatient Medications Medications (Trade) Dose Ordered Sig/Denisse Route Start Time Stop Time Status Last Admin Dose Admin Acetaminophen (Tylenol Tab) 650 mg Q4H PRN PO 11/15/17 22:45 12/15/17 22:44 Nitroglycerin (Nitrostat Tab) 0.4 mg UD PRN SL 11/15/17 23:00 12/15/17 22:59 Lorazepam (Ativan Tab) 0.5 mg TID PRN PO 11/15/17 23:15 12/15/17 23:14 11/19/17 21:05 0.5 MG Sertraline HCl (Zoloft Tab) 50 mg HS PO 11/16/17 21:00 12/16/17 20:59 11/19/17 21:06 50 MG Miscellaneous Information (Order Awaiting Action) 1 ea QS N/A 11/16/17 08:00 12/16/17 07:59 Lactobacillus Acidophilus (Floranex Tab) 1 tab DAILY PO 11/16/17 09:00 12/16/17 08:59 11/20/17 08:30 1 TAB Miscellaneous Information (Order Awaiting Action) 1 ea QS N/A 11/16/17 08:00 12/16/17 07:59 Ipratropium [place] (Atrovent 0.02% 0.5MG/2.5ML Neb) 0.5 mg Q6R INH 11/16/17 03:00 12/16/17 02:59 11/20/17 15:02 0.5 MG Levalbuterol (Xopenex 1.25MG/ 0.5ML Neb) 1.25 mg Q6R INH 11/16/17 03:00 12/16/17 02:59 11/20/17 15:02 1.25 MG Ipratropium [place] (Atrovent 0.02% 0.5MG/2.5ML Neb) 0.5 mg Q4H PRN INH 11/15/17 23:30 12/15/17 23:29 Levalbuterol (Xopenex 0.63 Mg/ 3 Ml Neb) 0.63 mg Q4H PRN INH 11/15/17 23:30 12/15/17 23:29 Sotalol HCl (Betapace Tab) 80 mg BID PO 11/17/17 21:00 12/17/17 20:59 11/20/17 09:35 80 MG Warfarin Sodium (Coumadin Tab) 5 mg DAILY@16 PO 11/17/17 16:00 12/17/17 15:59 11/20/17 16:32 5 MG Nicotine (Nicoderm Cq 14MG Patch) 1 patch QAM TD 11/18/17 09:00 12/18/17 08:59 Miscellaneous (Remove Nicoderm Patch) 1 ea HS N/A 11/18/17 21:00 12/18/17 20:59 Potassium Chloride (Klor-Con Tab) 20 meq QAM PO 11/19/17 09:00 12/19/17 08:59 11/20/17 08:31 20 MEQ Diltiazem HCl (Cardizem Cd Cap) 180 mg QAM PO 11/19/17 09:00 12/19/17 08:59 11/19/17 07:57 180 MG Prednisone (PredniSONE TAB) 40 mg DAILY PO 11/20/17 09:00 12/20/17 08:59 11/20/17 08:33 40 MG Multi-Ingredient Ointment (Eucerin Unscented Cr) 1 appln PRN PRN EXT 11/20/17 10:45 12/20/17 10:44 11/20/17 15:00 1 APPLN Acetazolamide Sodium 500 mg/ Syringe 5 ml @ 5 mls/min BID IV 11/20/17 21:00 12/20/17 20:59
[2017-11-20] MEDS: LORAZEPAM 0.5 MG TAB PO PRN (20:33)
[2017-11-20] MEDS: SERTRALINE HCL 50 MG TAB PO SCH (20:33)
[2017-11-20] MEDS: ACETAZOLAMIDE IV PUSH 500 MG in SYRINGE 0 ML IV SCH (21:01)
[2017-11-21] VITALS (12 sets, daily range): BP systolic 90–122; BP diastolic 65–84; PULSE 60–79; TEMP 36.3–36.9; O2SAT 87–100
[2017-11-21] MEDS: IPRATROPIUM BROMIDE NEB SOLN 0.02% 2.5 ML VIAL INH SCH ×4 (02:49→19:19)
[2017-11-21] MEDS: LEVALBUTEROL 1.25MG/0.5ML NEB INH SCH ×4 (02:49→19:19)
[2017-11-21] MEDS: DILTIAZEM HCL 180 MG CAPCR PO SCH (05:49)
[2017-11-21 06:07] LABS: HEMATOCRIT 44.2 % (42-52); HEMOGLOBIN 13.3 g/dL (14.0-18.0); MEAN CELL VOLUME 96.3 fL (80-100); MEAN CORPUSCULAR HGB CONC 30.1 g/dl (32-36); MEAN PLATELET VOLUME 9.7 fL (7.4-10.4); PLATELET COUNT 125 K/uL (130-400); RED CELL DISTRIBUTION WIDTH CV 13.1 % (11.5-14.5); RED CELL DISTRIBUTION WIDTH SD 46.2 fL (36.4-46.3); WHITE BLOOD COUNT 12.48 K/uL (4.8-10.8)
[2017-11-21 06:21] LABS: INR 2.4 (0.9-1.1)
[2017-11-21 06:43] LABS: CALCIUM 8.5 mg/dl (8.5-10.1); CREATININE 1.08 mg/dl (0.60-1.40); POTASSIUM 4.1 mmol/L (3.5-5.1)
--- NOTE | 2017-11-21 06:48 | Progress Note ---
Progress Note Date of Service Nov 21, 2017. Progress Note RN reported patient had an 8 sec run of SVT , patient asymptomatic ordered to give AM dose of Cardizem stat also on Sotalol Cardiology following PRP and Mg checked will relay to attending in AM Catrachita Nelson MD
[2017-11-21] MEDS: ANORO ELLIPTA~ORDER AWAITING ACTION SCH ×3 (07:53→23:38)
[2017-11-21] MEDS: NICOTINE 14 MG/24 HR TDSY TD SCH (09:00)
[2017-11-21] MEDS: LACTOBACILLUS ACIDOPHILUS (FLORANEX) TAB PO SCH (09:03)
[2017-11-21] MEDS: POTASSIUM CHLORIDE 20 MEQ TABCR PO SCH (09:03)
[2017-11-21] MEDS: ACETAZOLAMIDE IV PUSH 500 MG in SYRINGE 0 ML IV SCH ×3 (09:03→21:03)
[2017-11-21] MEDS: SOTALOL HCL 80 MG TAB PO SCH ×2 (09:04→20:55)
[2017-11-21] MEDS: EUCERIN CR 120 GM JAR EXT PRN (09:04)
--- NOTE | 2017-11-21 11:13 | Pulmonology Progress Note ---
Pulmonary Progress Note Date of Service Nov 21, 2017. Attending Dr. Villafana Subjective Patient seen and examined at bedside. He states that he is feeling more tired today however his breathing is better. He tolerated BiPAP overnight. He feels that his lower extremity edema is improving with marketed improvement of the left lower extremity than right. He denies any chest pain, shortness of breath or coughing. Patient had 8 second run of SVT. He was asymptomatic. He was given stat dose of Cardizem. Objective Vital signs reviewed. MAXIMUM TEMPERATURE 36.9, blood pressure 100/60 to 118/79 , pulse 67-81, respiratory rate 16-20, pulse oximetry 98-100% on 2 L. Cumulative output -4812 mL negative since admission. General: Patient sleeping, but easily arousable. Awake, alert and oriented and in no acute respiratory distress. Speaking in full sentences without use of accessory muscles of respiration. Lungs/chest. Diminished breath sounds bilaterally, prolonged expiratory phase Cardiovascular: S1-S2 regular rate and rhythm Abdomen: Soft, nontender nondistended bowel sounds positive, obese Extremities: Bilateral lower extremity lymphedema. Chronic venous changes bilaterally with dressings in place. Decreased swelling on left lower extremity and foot right lower extremity foot still remains erythematous and edematous Labs reviewed. Bicarbonate 52 yesterday down to 45 today. BUN 25 and creatinine 1.08. White blood count 12.3 down from 16 yesterday. Hemoglobin stable at 13. ABG 11/20/2017-7.37/77/77/43/94.3% on 2 L/m nasal cannula Medications reviewed. Imaging reviewed. Assessment & Plan 1. Chronic obstructive pulmonary disease exacerbation. 2. Acute on chronic hypercapnic hypoxemic respiratory failure 3. Emphysema. 4. Lymphedema. 5. Status post left pneumothorax with VATS procedure with pleurodesis. 6. Left lung nodule. Mr. Kennedy states that he is feeling improved from a respiratory standpoint. Still with hypercapnic respiratory failure which appears to be compensated. Now with metabolic alkalosis likely secondary to aggressive diuresis. Lasix discontinued yesterday and patient started on acetazolamide 500 mg twice a day. Bicarbonate level today 45 down from 52 today. Continue with supplemental oxygen to maintain SaO2 between 88-92%. Avoid hyperoxygenation as this can decrease his respiratory drive. Continue with BiPAP at night and when resting. He will likely qualify for BiPAP at home. Continue with Diamox 500 mg twice a day for 3 days to see if this can decrease his bicarbonate. Continue to monitor his electrolytes and replete as needed, per primary team. Continue with prednisone taper, nebulizers every 6 hours. Encourage out of bed to chair and ambulation. Pulmonary will follow. Data Medications: Current Inpatient Medications Medications (Trade) Dose Ordered Sig/Denisse Route Start Time Stop Time Status Last Admin Dose Admin Acetaminophen (Tylenol Tab) 650 mg Q4H PRN PO 11/15/17 22:45 12/15/17 22:44 Nitroglycerin (Nitrostat Tab) 0.4 mg UD PRN SL 11/15/17 23:00 12/15/17 22:59 Lorazepam (Ativan Tab) 0.5 mg TID PRN PO 11/15/17 23:15 12/15/17 23:14 11/20/17 20:33 0.5 MG Sertraline HCl (Zoloft Tab) 50 mg HS PO 11/16/17 21:00 12/16/17 20:59 11/20/17 20:33 50 MG Miscellaneous Information (Order Awaiting Action) 1 ea QS N/A 11/16/17 08:00 12/16/17 07:59 Lactobacillus Acidophilus (Floranex Tab) 1 tab DAILY PO 11/16/17 09:00 12/16/17 08:59 11/21/17 09:03 1 TAB Miscellaneous Information (Order Awaiting Action) 1 ea QS N/A 11/16/17 08:00 12/16/17 07:59 Ipratropium [place] (Atrovent 0.02% 0.5MG/2.5ML Neb) 0.5 mg Q6R INH 11/16/17 03:00 12/16/17 02:59 11/21/17 07:32 0.5 MG Levalbuterol (Xopenex 1.25MG/ 0.5ML Neb) 1.25 mg Q6R INH 11/16/17 03:00 12/16/17 02:59 11/21/17 07:32 1.25 MG Ipratropium [place] (Atrovent 0.02% 0.5MG/2.5ML Neb) 0.5 mg Q4H PRN INH 11/15/17 23:30 12/15/17 23:29 Levalbuterol (Xopenex 0.63 Mg/ 3 Ml Neb) 0.63 mg Q4H PRN INH 11/15/17 23:30 12/15/17 23:29 Sotalol HCl (Betapace Tab) 80 mg BID PO 11/17/17 21:00 12/17/17 20:59 11/21/17 09:04 80 MG Warfarin Sodium (Coumadin Tab) 5 mg DAILY@16 PO 11/17/17 16:00 12/17/17 15:59 11/20/17 16:32 5 MG Nicotine (Nicoderm Cq 14MG Patch) 1 patch QAM TD 11/18/17 09:00 12/18/17 08:59 Miscellaneous (Remove Nicoderm Patch) 1 ea HS N/A 11/18/17 21:00 12/18/17 20:59 Potassium Chloride (Klor-Con Tab) 20 meq QAM PO 11/19/17 09:00 12/19/17 08:59 11/21/17 09:03 20 MEQ Diltiazem HCl (Cardizem Cd Cap) 180 mg QAM PO 11/19/17 09:00 12/19/17 08:59 11/21/17 05:49 180 MG Prednisone (PredniSONE TAB) 40 mg DAILY PO 11/20/17 09:00 12/20/17 08:59 11/21/17 09:03 40 MG Multi-Ingredient Ointment (Eucerin Unscented Cr) 1 appln PRN PRN EXT 11/20/17 10:45 12/20/17 10:44 11/21/17 09:04 1 APPLN Acetazolamide Sodium 500 mg/ Syringe 5 ml @ 5 mls/min BID IV 11/20/17 21:00 12/20/17 20:59 11/20/17 21:01 5 MLS/MIN Vital Signs: Date Time Temp Pulse Resp B/P (MAP) Pulse Ox O2 Delivery O2 Flow Rate FiO2 11/21/17 09:15 60 90/84 (86) 11/21/17 08:00 Nasal Cannula 2.0 11/21/17 07:33 66 16 87 Nasal Cannula 2.0 11/21/17 07:18 36.6 70 18 121/82 (95) 100 Nasal Cannula 2.0 11/21/17 04:00 Nasal Cannula 2.0 11/21/17 04:00 36.6 69 20 121/76 (91) 98 Room Air 11/21/17 00:00 Nasal Cannula 2.0 11/21/17 00:00 36.9 69 20 122/79 (93) 98 2.0 11/20/17 23:59 68 93 2.0 11/20/17 20:37 83 16 99 Nasal Cannula 2.0 11/20/17 20:00 98 Nasal Cannula 2.0 11/20/17 19:52 36.6 89 18 115/74 (88) 99 Nasal Cannula 2.0 11/20/17 16:00 Nasal Cannula 2.0 11/20/17 15:32 36.6 78 18 129/77 (94) 94 Nasal Cannula 2.0 11/20/17 15:02 76 16 98 Nasal Cannula 2.0 11/20/17 12:00 Nasal Cannula 2.0 11/20/17 11:35 36.6 69 18 101/66 (78) 99 2.0 Laboratory Results: Last 24 Hours Test 11/20/17 13:15 11/21/17 05:42 Arterial Blood pH 7.37 Arterial Blood Partial Pressure CO2 77 mmHg Arterial Blood Partial Pressure O2 77 mm/Hg Arterial Blood HCO3 43 mmol/L Arterial Blood Oxygen Saturation 94.3 % Arterial Blood Base Excess 14.1 mEq/L Arterial Blood Gas Delivery 2L Nino Test POS White Blood Count 12.48 K/uL Red Blood Count 4.59 M/uL Hemoglobin 13.3 g/dL Hematocrit 44.2 % Mean Corpuscular Volume 96.3 fL Mean Corpuscular Hemoglobin 29.0 pg Mean Corpuscular Hemoglobin Concent 30.1 g/dl RDW Standard Deviation 46.2 fL RDW Coefficient of Variation 13.1 % Platelet Count 125 K/uL Mean Platelet Volume 9.7 fL Prothrombin Time 24.3 SECONDS Prothromb Time International Ratio 2.4 Sodium Level 140 mmol/L Potassium Level 4.1 mmol/L Chloride Level 96 mmol/L Carbon Dioxide Level 45 mmol/L Anion Gap -1.0 mmol/L Blood Urea Nitrogen 25 mg/dl Creatinine 1.08 mg/dl Est Creatinine Clear Calc Drug Dose 85.4 ml/min Estimated GFR () 84.8 Estimated GFR (Non- 73.2 BUN/Creatinine Ratio 23.2 Random Glucose 83 mg/dl Calcium Level 8.5 mg/dl Magnesium Level 2.5 mg/dl Chemistry Specimen Hemolysis
[2017-11-21] MEDS: WARFARIN SOD 5 MG TAB PO SCH (16:12)
--- NOTE | 2017-11-21 16:18 | Progress Note ---
Medicine Progress Note Date & Time of Visit: Nov 21, 2017 at 15:35. Subjective Pt was seen and examined Lying in bed with no distress Denies any chest pain, palpitation, dizziness and SOB Objective Last 8 Hrs Date Time Temp Pulse Resp B/P (MAP) Pulse Ox O2 Delivery O2 Flow Rate FiO2 11/21/17 14:59 36.9 76 20 101/65 (77) 96 Nasal Cannula 2.0 11/21/17 14:25 79 16 98 Nasal Cannula 3.0 11/21/17 12:00 Nasal Cannula 2.0 11/21/17 11:46 36.3 67 18 111/72 (85) 99 Nasal Cannula 2.0 11/21/17 09:15 60 90/84 (86) 11/21/17 08:00 Nasal Cannula 2.0 Physical Exam: General- No acute distress Head- atraumatic Eyes- PERRL, EOMI ENT- oropharynx clear Neck- supple, no JVD Lungs- Poor air entry Heart- regular rhythm Abdomen- normal bowel sounds, soft Extremities- B/L +edema Neuro- alert, oriented x 3; PERRL, EOMI Skin- warm & dry Laboratory Results: Last 24 Hours Test 11/21/17 05:42 White Blood Count 12.48 K/uL Red Blood Count 4.59 M/uL Hemoglobin 13.3 g/dL Hematocrit 44.2 % Mean Corpuscular Volume 96.3 fL Mean Corpuscular Hemoglobin 29.0 pg Mean Corpuscular Hemoglobin Concent 30.1 g/dl RDW Standard Deviation 46.2 fL RDW Coefficient of Variation 13.1 % Platelet Count 125 K/uL Mean Platelet Volume 9.7 fL Prothrombin Time 24.3 SECONDS Prothromb Time International Ratio 2.4 Sodium Level 140 mmol/L Potassium Level 4.1 mmol/L Chloride Level 96 mmol/L Carbon Dioxide Level 45 mmol/L Anion Gap -1.0 mmol/L Blood Urea Nitrogen 25 mg/dl Creatinine 1.08 mg/dl Est Creatinine Clear Calc Drug Dose 85.4 ml/min Estimated GFR () 84.8 Estimated GFR (Non- 73.2 BUN/Creatinine Ratio 23.2 Random Glucose 83 mg/dl Calcium Level 8.5 mg/dl Magnesium Level 2.5 mg/dl Chemistry Specimen Hemolysis Assessment & Plan PAROXYSMAL A FIB: Rate control on sinus rhythm Was on heparin drip and cardizem initially, that was d/c case discussed with Cardiology dr. Pablo recommended to continue sotalol and diltiazem. Continue coumadin INR 2.4 today Stable to discharge home from cardiology standpoint ACUTE ON CHRONIC RESPIRATORY FAILURE: with Hypoxemia and hypercapnia Likely secondary to COPD exacerbation CXR showed no infiltrate, no pulmonary congestion Afebrile, mild leukocytosis Blood cx negative Continue oxygen supplement and BIPAP as needed On Xopenex/Atrovent nebs q 4 Levaquin discontinued Continue predini Pulmonology consulted, appreciate recommendations -CO2 is trending down to 45 Pulm recommended acetazolamide for 3 days will get pulse overnight pulse oximetry and ABG in am ECHO showed * Sinus rhythm was present during the echocardiogram. * The left ventricular wall motion was grossly normal on technically limited assessment. * The LV Ejection Fraction = 55-60%. * Grade I diastolic dysfunction, (abnormal relaxation pattern). * Doppler findings do not suggest pulmonary hypertension. * There is no significant valvualar heart disease. * The right ventricle is normal in size and function. ABNORMAL UA UA POSITIVE urine culture negative Afebrile and no leukocytosis CHRONIC LYMPHEDEMA: of B/L LE Chronic Lymphedema and venous stasis was getting Lasix 40mg, that has been held due to elevated Bicarb LE US negative for DVT Wound care consulted Continue diuretic DEPRESSION/ANXIETY: On zoloft Continue ativan prn anxiety DVT px on Coumadin CODE STATUS FULL CODE Consultants: Cardio Wound care Current Inpatient Medications: Current Inpatient Medications Medications (Trade) Dose Ordered Sig/Denisse Route Start Time Stop Time Status Last Admin Dose Admin Acetaminophen (Tylenol Tab) 650 mg Q4H PRN PO 11/15/17 22:45 12/15/17 22:44 Nitroglycerin (Nitrostat Tab) 0.4 mg UD PRN SL 11/15/17 23:00 12/15/17 22:59 Lorazepam (Ativan Tab) 0.5 mg TID PRN PO 11/15/17 23:15 12/15/17 23:14 11/20/17 20:33 0.5 MG Sertraline HCl (Zoloft Tab) 50 mg HS PO 11/16/17 21:00 12/16/17 20:59 11/20/17 20:33 50 MG Miscellaneous Information (Order Awaiting Action) 1 ea QS N/A 11/16/17 08:00 12/16/17 07:59 Lactobacillus Acidophilus (Floranex Tab) 1 tab DAILY PO 11/16/17 09:00 12/16/17 08:59 11/21/17 09:03 1 TAB Miscellaneous Information (Order Awaiting Action) 1 ea QS N/A 11/16/17 08:00 12/16/17 07:59 Ipratropium [place] (Atrovent 0.02% 0.5MG/2.5ML Neb) 0.5 mg Q6R INH 11/16/17 03:00 12/16/17 02:59 11/21/17 14:25 0.5 MG Levalbuterol (Xopenex 1.25MG/ 0.5ML Neb) 1.25 mg Q6R INH 11/16/17 03:00 12/16/17 02:59 11/21/17 14:25 1.25 MG Ipratropium [place] (Atrovent 0.02% 0.5MG/2.5ML Neb) 0.5 mg Q4H PRN INH 11/15/17 23:30 12/15/17 23:29 Levalbuterol (Xopenex 0.63 Mg/ 3 Ml Neb) 0.63 mg Q4H PRN INH 11/15/17 23:30 12/15/17 23:29 Sotalol HCl (Betapace Tab) 80 mg BID PO 11/17/17 21:00 12/17/17 20:59 11/21/17 09:04 80 MG Warfarin Sodium (Coumadin Tab) 5 mg DAILY@16 PO 11/17/17 16:00 12/17/17 15:59 11/20/17 16:32 5 MG Nicotine (Nicoderm Cq 14MG Patch) 1 patch QAM TD 11/18/17 09:00 12/18/17 08:59 Miscellaneous (Remove Nicoderm Patch) 1 ea HS N/A 11/18/17 21:00 12/18/17 20:59 Potassium Chloride (Klor-Con Tab) 20 meq QAM PO 11/19/17 09:00 12/19/17 08:59 11/21/17 09:03 20 MEQ Diltiazem HCl (Cardizem Cd Cap) 180 mg QAM PO 11/19/17 09:00 12/19/17 08:59 11/21/17 05:49 180 MG Prednisone (PredniSONE TAB) 40 mg DAILY PO 11/20/17 09:00 12/20/17 08:59 11/21/17 09:03 40 MG Multi-Ingredient Ointment (Eucerin Unscented Cr) 1 appln PRN PRN EXT 11/20/17 10:45 12/20/17 10:44 11/21/17 09:04 1 APPLN Acetazolamide Sodium 500 mg/ Syringe 5 ml @ 5 mls/min BID IV 11/20/17 21:00 12/20/17 20:59 11/21/17 11:42 5 MLS/MIN
[2017-11-21] MEDS: LORAZEPAM 0.5 MG TAB PO PRN (20:54)
[2017-11-21] MEDS: SERTRALINE HCL 50 MG TAB PO SCH (20:55)
[2017-11-22] VITALS (12 sets, daily range): BP systolic 95–116; BP diastolic 58–75; PULSE 62–95; TEMP 36.4–37; O2SAT 93–100
[2017-11-22] MEDS: IPRATROPIUM BROMIDE NEB SOLN 0.02% 2.5 ML VIAL INH SCH ×4 (02:15→19:05)
[2017-11-22] MEDS: LEVALBUTEROL 1.25MG/0.5ML NEB INH SCH ×4 (02:16→19:05)
[2017-11-22] MEDS: ANORO ELLIPTA~ORDER AWAITING ACTION SCH ×3 (08:00→22:47)
[2017-11-22 08:02] LABS: INR 2.3 (0.9-1.1)
[2017-11-22] MEDS: DILTIAZEM HCL 180 MG CAPCR PO SCH (08:21)
[2017-11-22] MEDS: LACTOBACILLUS ACIDOPHILUS (FLORANEX) TAB PO SCH (08:21)
[2017-11-22] MEDS: SOTALOL HCL 80 MG TAB PO SCH ×2 (08:21→20:37)
[2017-11-22] MEDS: POTASSIUM CHLORIDE 20 MEQ TABCR PO SCH (08:22)
[2017-11-22] MEDS: NICOTINE 14 MG/24 HR TDSY TD SCH (08:22)
[2017-11-22] MEDS: ACETAZOLAMIDE IV PUSH 500 MG in SYRINGE 0 ML IV SCH (08:26)
[2017-11-22 08:58] LABS: CALCIUM 8.2 mg/dl (8.5-10.1); CREATININE 0.86 mg/dl (0.60-1.40); POTASSIUM 4.1 mmol/L (3.5-5.1)
--- NOTE | 2017-11-22 12:41 | Pulmonology Progress Note ---
Pulmonary Progress Note Date of Service Nov 22, 2017. Attending Dr. Villafana Subjective Patient seen and examined at bedside. He is feeling more lethargic today. He had overnight oximetry done. ABG done this morning significant for hypercarbia. Denies any shortness of breath, chest pain. States that he still seeing improvement in his left lower extremity swelling and edema. However there has been no significant change in the right lower extremity foot swelling. He is currently back on BiPAP. Objective Vital signs reviewed. MAXIMUM TEMPERATURE 36.9, blood pressure 100/60 to 118/79 , pulse 67-81, respiratory rate 16-20, pulse oximetry 98-100% on 2 L. Cumulative output - 6212 mL negative since admission. General: Patient sleeping, but easily arousable. Awake, alert and oriented and in no acute respiratory distress. Speaking in full sentences without use of accessory muscles of respiration. Lungs/chest. Diminished breath sounds bilaterally, prolonged expiratory phase Cardiovascular: S1-S2 regular rate and rhythm Abdomen: Soft, nontender nondistended bowel sounds positive, obese Extremities: Bilateral lower extremity lymphedema. Chronic venous changes bilaterally with dressings in place. Decreased swelling on left lower extremity and foot right lower extremity foot still remains erythematous and edematous Labs reviewed. Bicarbonate 52 --> 45 --> 35 today. BUN 25 and creatinine 0.86 from 1.08 yesterday No new CBC today ABG 11/20/2017-7.37/77/77/43/94.3% on 2 L/m nasal cannula ABG 11/22/2017-7.26/80/29/36/96.6% on 2 L/m nasal cannula Medications reviewed. Imaging reviewed. Assessment & Plan 1. Chronic obstructive pulmonary disease exacerbation. 2. Acute on chronic hypercapnic hypoxemic respiratory failure 3. Emphysema. 4. Lymphedema. 5. Status post left pneumothorax with VATS procedure with pleurodesis. 6. Left lung nodule. Mr. Kennedy has acute on chronic on chronic hypercapnic respiratory failure. He was doing well with BiPAP and Lasix however Lasix was discontinued due to metabolic alkalosis. We switched him over to acetazolamide twice a day 2 days ago with significant improvement of his bicarbonate level. Patient underwent an overnight sleep study without the BiPAP with a rise in PCO2. However I do not feel that he was adequately able to compensate for this due to decreased bicarbonate from diuresis. Recommend that we discontinue acetazolamide today. Continue with supplemental oxygen to maintain SaO2 between 88-92%. Avoid hyperoxygenation as this can decrease his respiratory drive. Be careful with Ativan and other narcotics as they may decrease his respiratory drive. Continue with BiPAP at night and when resting. He will likely qualify for BiPAP at home. Can resume diuretic therapy, once pH is within a normal range. He will likely require require continued diuresis as an outpatient to maintain a negative balance. However his bicarbonate level and electrolytes should be closely monitored. I would discontinue steroids at this time. Encourage out of bed to chair and ambulation. Pulmonary will follow. Data Medications: Current Inpatient Medications Medications (Trade) Dose Ordered Sig/Denisse Route Start Time Stop Time Status Last Admin Dose Admin Acetaminophen (Tylenol Tab) 650 mg Q4H PRN PO 11/15/17 22:45 12/15/17 22:44 Nitroglycerin (Nitrostat Tab) 0.4 mg UD PRN SL 11/15/17 23:00 12/15/17 22:59 Lorazepam (Ativan Tab) 0.5 mg TID PRN PO 11/15/17 23:15 12/15/17 23:14 11/21/17 20:54 0.5 MG Sertraline HCl (Zoloft Tab) 50 mg HS PO 11/16/17 21:00 12/16/17 20:59 11/21/17 20:55 50 MG Miscellaneous Information (Order Awaiting Action) 1 ea QS N/A 11/16/17 08:00 12/16/17 07:59 Lactobacillus Acidophilus (Floranex Tab) 1 tab DAILY PO 11/16/17 09:00 12/16/17 08:59 11/22/17 08:21 1 TAB Miscellaneous Information (Order Awaiting Action) 1 ea QS N/A 11/16/17 08:00 12/16/17 07:59 Ipratropium [place] (Atrovent 0.02% 0.5MG/2.5ML Neb) 0.5 mg Q6R INH 11/16/17 03:00 12/16/17 02:59 11/22/17 07:33 0.5 MG Levalbuterol (Xopenex 1.25MG/ 0.5ML Neb) 1.25 mg Q6R INH 11/16/17 03:00 12/16/17 02:59 11/22/17 07:33 1.25 MG Ipratropium [place] (Atrovent 0.02% 0.5MG/2.5ML Neb) 0.5 mg Q4H PRN INH 11/15/17 23:30 12/15/17 23:29 Levalbuterol (Xopenex 0.63 Mg/ 3 Ml Neb) 0.63 mg Q4H PRN INH 11/15/17 23:30 12/15/17 23:29 Sotalol HCl (Betapace Tab) 80 mg BID PO 11/17/17 21:00 12/17/17 20:59 11/22/17 08:21 80 MG Warfarin Sodium (Coumadin Tab) 5 mg DAILY@16 PO 11/17/17 16:00 12/17/17 15:59 11/21/17 16:12 5 MG Nicotine (Nicoderm Cq 14MG Patch) 1 patch QAM TD 11/18/17 09:00 12/18/17 08:59 Miscellaneous (Remove Nicoderm Patch) 1 ea HS N/A 11/18/17 21:00 12/18/17 20:59 Potassium Chloride (Klor-Con Tab) 20 meq QAM PO 11/19/17 09:00 12/19/17 08:59 11/22/17 08:22 20 MEQ Diltiazem HCl (Cardizem Cd Cap) 180 mg QAM PO 11/19/17 09:00 12/19/17 08:59 11/22/17 08:21 180 MG Prednisone (PredniSONE TAB) 40 mg DAILY PO 11/20/17 09:00 12/20/17 08:59 11/22/17 08:21 40 MG Multi-Ingredient Ointment (Eucerin Unscented Cr) 1 appln PRN PRN EXT 11/20/17 10:45 12/20/17 10:44 11/21/17 09:04 1 APPLN Acetazolamide Sodium 500 mg/ Syringe 5 ml @ 5 mls/min BID IV 11/20/17 21:00 12/20/17 20:59 11/22/17 08:26 5 MLS/MIN Vital Signs: Date Time Temp Pulse Resp B/P (MAP) Pulse Ox O2 Delivery O2 Flow Rate FiO2 11/22/17 11:26 36.4 81 18 109/64 (79) 100 BiPAP 11/22/17 08:00 Nasal Cannula 2.0 11/22/17 07:43 36.8 70 18 116/75 (89) 98 2.0 11/22/17 07:33 71 16 96 Nasal Cannula 2.0 11/22/17 05:31 95 20 95 Nasal Cannula 2.0 11/22/17 04:00 Nasal Cannula 2.0 96 11/22/17 04:00 37.0 71 18 112/75 (87) 97 Nasal Cannula 2.0 Humidified Air 11/22/17 00:00 36.6 62 18 109/71 (84) 96 Nasal Cannula 2.0 11/22/17 00:00 Nasal Cannula 2.0 96 11/21/17 20:38 36.7 77 14 110/67 (81) 98 Nasal Cannula 2.0 11/21/17 20:00 96 Nasal Cannula 2.0 11/21/17 19:19 76 16 96 Nasal Cannula 2.0 11/21/17 16:00 96 Nasal Cannula 2.0 11/21/17 14:59 36.9 76 20 101/65 (77) 96 Nasal Cannula 2.0 11/21/17 14:25 79 16 98 Nasal Cannula 3.0 Laboratory Results: Last 24 Hours Test 11/22/17 07:32 Prothrombin Time 24.1 SECONDS Prothromb Time International Ratio 2.3 Arterial Blood pH 7.26 Arterial Blood Partial Pressure CO2 80 mmHg Arterial Blood Partial Pressure O2 99 mm/Hg Arterial Blood HCO3 36 mmol/L Arterial Blood Oxygen Saturation 96.6 % Arterial Blood Base Excess 5.9 mEq/L Arterial Blood Gas Delivery 2L Nino Test POS Sodium Level 138 mmol/L Potassium Level 4.1 mmol/L Chloride Level 101 mmol/L Carbon Dioxide Level 35 mmol/L Anion Gap 2.0 mmol/L Blood Urea Nitrogen 25 mg/dl Creatinine 0.86 mg/dl Est Creatinine Clear Calc Drug Dose 114.7 ml/min Estimated GFR () 107.7 Estimated GFR (Non- 92.9 BUN/Creatinine Ratio 29.4 Random Glucose 81 mg/dl Calcium Level 8.2 mg/dl
[2017-11-22] MEDS: WARFARIN SOD 5 MG TAB PO SCH (16:16)
--- NOTE | 2017-11-22 20:01 | Progress Note ---
Medicine Progress Note Date & Time of Visit: Nov 22, 2017 at 20:01. Subjective Pt was seen and examined Sitting in bed with no distress Denies any chest pain Objective Last 8 Hrs Date Time Temp Pulse Resp B/P (MAP) Pulse Ox O2 Delivery O2 Flow Rate FiO2 11/22/17 19:06 78 16 93 Nasal Cannula 2.0 11/22/17 15:57 Nasal Cannula 2.0 11/22/17 15:21 36.7 71 16 100/64 (76) 97 Nasal Cannula 2.0 11/22/17 14:27 100 2.0 Physical Exam: General- No acute distress Head- atraumatic Eyes- PERRL, EOMI ENT- oropharynx clear Neck- supple, no JVD Lungs- Poor air entry Heart- regular rhythm Abdomen- normal bowel sounds, soft Extremities- B/L +edema Neuro- alert, oriented x 3; PERRL, EOMI Skin- warm & dry Laboratory Results: Last 24 Hours Test 11/22/17 07:32 Prothrombin Time 24.1 SECONDS Prothromb Time International Ratio 2.3 Arterial Blood pH 7.26 Arterial Blood Partial Pressure CO2 80 mmHg Arterial Blood Partial Pressure O2 99 mm/Hg Arterial Blood HCO3 36 mmol/L Arterial Blood Oxygen Saturation 96.6 % Arterial Blood Base Excess 5.9 mEq/L Arterial Blood Gas Delivery 2L Nino Test POS Sodium Level 138 mmol/L Potassium Level 4.1 mmol/L Chloride Level 101 mmol/L Carbon Dioxide Level 35 mmol/L Anion Gap 2.0 mmol/L Blood Urea Nitrogen 25 mg/dl Creatinine 0.86 mg/dl Est Creatinine Clear Calc Drug Dose 114.7 ml/min Estimated GFR () 107.7 Estimated GFR (Non- 92.9 BUN/Creatinine Ratio 29.4 Random Glucose 81 mg/dl Calcium Level 8.2 mg/dl Assessment & Plan PAROXYSMAL A FIB: Rate control on sinus rhythm Was on heparin drip and cardizem initially, that was d/c case discussed with Cardiology dr. Pablo recommended to continue sotalol and diltiazem. Continue coumadin INR 2.4 today Stable to discharge home from cardiology standpoint ACUTE ON CHRONIC RESPIRATORY FAILURE: with Hypoxemia and hypercapnia Likely secondary to COPD exacerbation CXR showed no infiltrate, no pulmonary congestion Afebrile, mild leukocytosis Blood cx negative Continue oxygen supplement and BIPAP as needed On Xopenex/Atrovent nebs q 4 Levaquin discontinued Continue predini Pulmonology consulted, appreciate recommendations -CO2 is trending down to 45 Pulm recommended acetazolamide for 3 days ABG done this morning showed elevated bicarb Pt will need BiPap ECHO showed * Sinus rhythm was present during the echocardiogram. * The left ventricular wall motion was grossly normal on technically limited assessment. * The LV Ejection Fraction = 55-60%. * Grade I diastolic dysfunction, (abnormal relaxation pattern). * Doppler findings do not suggest pulmonary hypertension. * There is no significant valvualar heart disease. * The right ventricle is normal in size and function. ABNORMAL UA UA POSITIVE urine culture negative Afebrile and no leukocytosis CHRONIC LYMPHEDEMA: of B/L LE Chronic Lymphedema and venous stasis was getting Lasix 40mg, that has been held due to elevated Bicarb LE US negative for DVT Wound care consulted Continue diuretic DEPRESSION/ANXIETY: On zoloft Continue ativan prn anxiety DVT px on Coumadin CODE STATUS FULL CODE Consultants: Cardio Wound care Current Inpatient Medications: Current Inpatient Medications Medications (Trade) Dose Ordered Sig/Denisse Route Start Time Stop Time Status Last Admin Dose Admin Acetaminophen (Tylenol Tab) 650 mg Q4H PRN PO 11/15/17 22:45 12/15/17 22:44 Nitroglycerin (Nitrostat Tab) 0.4 mg UD PRN SL 11/15/17 23:00 12/15/17 22:59 Lorazepam (Ativan Tab) 0.5 mg TID PRN PO 11/15/17 23:15 12/15/17 23:14 11/21/17 20:54 0.5 MG Sertraline HCl (Zoloft Tab) 50 mg HS PO 11/16/17 21:00 12/16/17 20:59 11/21/17 20:55 50 MG Miscellaneous Information (Order Awaiting Action) 1 ea QS N/A 11/16/17 08:00 12/16/17 07:59 Lactobacillus Acidophilus (Floranex Tab) 1 tab DAILY PO 11/16/17 09:00 12/16/17 08:59 11/22/17 08:21 1 TAB Miscellaneous Information (Order Awaiting Action) 1 ea QS N/A 11/16/17 08:00 12/16/17 07:59 Ipratropium [place] (Atrovent 0.02% 0.5MG/2.5ML Neb) 0.5 mg Q6R INH 11/16/17 03:00 12/16/17 02:59 11/22/17 19:05 0.5 MG Levalbuterol (Xopenex 1.25MG/ 0.5ML Neb) 1.25 mg Q6R INH 11/16/17 03:00 12/16/17 02:59 11/22/17 19:05 1.25 MG Ipratropium [place] (Atrovent 0.02% 0.5MG/2.5ML Neb) 0.5 mg Q4H PRN INH 11/15/17 23:30 12/15/17 23:29 Levalbuterol (Xopenex 0.63 Mg/ 3 Ml Neb) 0.63 mg Q4H PRN INH 11/15/17 23:30 12/15/17 23:29 Sotalol HCl (Betapace Tab) 80 mg BID PO 11/17/17 21:00 12/17/17 20:59 11/22/17 08:21 80 MG Warfarin Sodium (Coumadin Tab) 5 mg DAILY@16 PO 11/17/17 16:00 12/17/17 15:59 11/22/17 16:16 5 MG Nicotine (Nicoderm Cq 14MG Patch) 1 patch QAM TD 11/18/17 09:00 12/18/17 08:59 Miscellaneous (Remove Nicoderm Patch) 1 ea HS N/A 11/18/17 21:00 12/18/17 20:59 Potassium Chloride (Klor-Con Tab) 20 meq QAM PO 11/19/17 09:00 12/19/17 08:59 11/22/17 08:22 20 MEQ Diltiazem HCl (Cardizem Cd Cap) 180 mg QAM PO 11/19/17 09:00 12/19/17 08:59 11/22/17 08:21 180 MG Multi-Ingredient Ointment (Eucerin Unscented Cr) 1 appln PRN PRN EXT 11/20/17 10:45 12/20/17 10:44 11/21/17 09:04 1 APPLN
[2017-11-22] MEDS: SERTRALINE HCL 50 MG TAB PO SCH (20:37)
[2017-11-22] MEDS: LORAZEPAM 0.5 MG TAB PO PRN (20:40)
[2017-11-23] VITALS (12 sets, daily range): BP systolic 93–111; BP diastolic 63–74; PULSE 53–93; TEMP 36.1–36.7; O2SAT 90–98
[2017-11-23] MEDS: IPRATROPIUM BROMIDE NEB SOLN 0.02% 2.5 ML VIAL INH SCH ×4 (02:07→19:18)
[2017-11-23] MEDS: LEVALBUTEROL 1.25MG/0.5ML NEB INH SCH ×4 (02:07→19:18)
[2017-11-23 06:14] LABS: HEMATOCRIT 43.3 % (42-52); HEMOGLOBIN 13.2 g/dL (14.0-18.0); MEAN CELL VOLUME 95.4 fL (80-100); MEAN CORPUSCULAR HEMOGLOBIN 29.1 pg (25-34); MEAN CORPUSCULAR HGB CONC 30.5 g/dl (32-36); MEAN PLATELET VOLUME 9.7 fL (7.4-10.4); PLATELET COUNT 122 K/uL (130-400); RED CELL DISTRIBUTION WIDTH CV 13.3 % (11.5-14.5); RED CELL DISTRIBUTION WIDTH SD 46.1 fL (36.4-46.3); WHITE BLOOD COUNT 15.75 K/uL (4.8-10.8)
[2017-11-23 06:55] LABS: CALCIUM 8.3 mg/dl (8.5-10.1); CREATININE 0.99 mg/dl (0.60-1.40); POTASSIUM 4.1 mmol/L (3.5-5.1)
[2017-11-23] MEDS: ANORO ELLIPTA~ORDER AWAITING ACTION SCH ×2 (08:42→15:54)
[2017-11-23] MEDS: SOTALOL HCL 80 MG TAB PO SCH ×2 (08:43→21:39)
[2017-11-23] MEDS: POTASSIUM CHLORIDE 20 MEQ TABCR PO SCH (08:43)
[2017-11-23] MEDS: LACTOBACILLUS ACIDOPHILUS (FLORANEX) TAB PO SCH (08:43)
[2017-11-23] MEDS: DILTIAZEM HCL 180 MG CAPCR PO SCH (08:45)
[2017-11-23] MEDS: NICOTINE 14 MG/24 HR TDSY TD SCH (08:46)
[2017-11-23] MEDS: WARFARIN SOD 5 MG TAB PO SCH (15:53)
--- NOTE | 2017-11-23 16:04 | Pulmonology Progress Note ---
Pulmonary Progress Note Date of Service Nov 23, 2017. Attending Dr. Villafana Subjective Patient seen and examined at this time. He states that he is feeling more tired than usual. Tolerated BIPAP well overnight. Still with dyspnea today. He was able to ambulate today with PT/OT. He is concerned about low BP. He denies any lightheadeness or dizziness. Objective Vital signs reviewed. MAXIMUM TEMPERATURE 36.7, blood pressure 93/67-103/68, pulse 53-83, respiratory rate 14-19, pulse oximetry 94-97% on 2 L. Cumulative output -6872 mL negative since admission. General: Patient sleeping, but easily arousable. Awake, alert and oriented and in no acute respiratory distress. Speaking in full sentences without use of accessory muscles of respiration. Lungs/chest. Diminished breath sounds bilaterally, prolonged expiratory phase, crackles at bases Cardiovascular: S1-S2 regular rate and rhythm Abdomen: Soft, nontender nondistended bowel sounds positive, obese Extremities: Bilateral lower extremity lymphedema. Chronic venous changes bilaterally with dressings in place. Decreased swelling on left lower extremity and foot right lower extremity foot still remains erythematous and edematous Labs reviewed. Bicarbonate 52 --> 45 --> 35-->34 today. BUN 26 and creatinine 0.99 yesterday WBC 15, Hgb 13.2, Platelet 122 ABG 11/20/2017-7.37/77/77/43/94.3% on 2 L/m nasal cannula ABG 11/22/2017-7.26/80/29/36/96.6% on 2 L/m nasal cannula ABG 11/23/2017-7.37/57/62/32/90.5% on 2L/m nasal canula Medications reviewed. Imaging reviewed. Assessment & Plan 1. Chronic obstructive pulmonary disease exacerbation. 2. Acute on chronic hypercapnic hypoxemic respiratory failure 3. Emphysema. 4. Lymphedema. 5. Status post left pneumothorax with VATS procedure with pleurodesis. 6. Left lung nodule. 7. Low BP Mr. Kennedy has acute on chronic on chronic hypercapnic respiratory failure. He is improving today. He still has hypercapnic respiratory failure, but it is improving on BIPAP. He still continue to diurese without diuretics. BP has been lower side for the last several days, but he shows no signs of end organ damage. This likely secondary to cardiazem and sotolol. Continue with supplemental oxygen to maintain SaO2 between 88-92%. Continue with BiPAP at night and when resting. He should be discharged with BIPAP at home. Avoid hyperoxygenation as this can decrease his respiratory drive. Be careful with Ativan and other narcotics as they may decrease his respiratory drive. Can resume diuretic therapy, once pH is within a normal range. He will likely require require continued diuresis as an outpatient to maintain a negative balance. Continue to monitor bicarbonate level and electrolytes should be closely monitored. Acute exacerbation appears to have resolved. BP is borderline-Consider adjusting cardiac meds. I will leave this to management of cardiology and primary team. I will sign off case. Please contact me if you have any other questions or concerns. Data Medications: Current Inpatient Medications Medications (Trade) Dose Ordered Sig/Denisse Route Start Time Stop Time Status Last Admin Dose Admin Acetaminophen (Tylenol Tab) 650 mg Q4H PRN PO 11/15/17 22:45 12/15/17 22:44 Nitroglycerin (Nitrostat Tab) 0.4 mg UD PRN SL 11/15/17 23:00 12/15/17 22:59 Lorazepam (Ativan Tab) 0.5 mg TID PRN PO 11/15/17 23:15 12/15/17 23:14 11/22/17 20:40 0.5 MG Sertraline HCl (Zoloft Tab) 50 mg HS PO 11/16/17 21:00 12/16/17 20:59 11/22/17 20:37 50 MG Miscellaneous Information (Order Awaiting Action) 1 ea QS N/A 11/16/17 08:00 12/16/17 07:59 Lactobacillus Acidophilus (Floranex Tab) 1 tab DAILY PO 11/16/17 09:00 12/16/17 08:59 11/23/17 08:43 1 TAB Miscellaneous Information (Order Awaiting Action) 1 ea QS N/A 11/16/17 08:00 12/16/17 07:59 Ipratropium [place] (Atrovent 0.02% 0.5MG/2.5ML Neb) 0.5 mg Q6R INH 11/16/17 03:00 12/16/17 02:59 11/23/17 14:11 0.5 MG Levalbuterol (Xopenex 1.25MG/ 0.5ML Neb) 1.25 mg Q6R INH 11/16/17 03:00 12/16/17 02:59 11/23/17 14:11 1.25 MG Ipratropium [place] (Atrovent 0.02% 0.5MG/2.5ML Neb) 0.5 mg Q4H PRN INH 11/15/17 23:30 12/15/17 23:29 Levalbuterol (Xopenex 0.63 Mg/ 3 Ml Neb) 0.63 mg Q4H PRN INH 11/15/17 23:30 12/15/17 23:29 Sotalol HCl (Betapace Tab) 80 mg BID PO 11/17/17 21:00 12/17/17 20:59 11/23/17 08:43 80 MG Warfarin Sodium (Coumadin Tab) 5 mg DAILY@16 PO 11/17/17 16:00 12/17/17 15:59 11/22/17 16:16 5 MG Nicotine (Nicoderm Cq 14MG Patch) 1 patch QAM TD 11/18/17 09:00 12/18/17 08:59 Miscellaneous (Remove Nicoderm Patch) 1 ea HS N/A 11/18/17 21:00 12/18/17 20:59 Potassium Chloride (Klor-Con Tab) 20 meq QAM PO 11/19/17 09:00 12/19/17 08:59 11/23/17 08:43 20 MEQ Diltiazem HCl (Cardizem Cd Cap) 180 mg QAM PO 11/19/17 09:00 12/19/17 08:59 11/23/17 08:45 180 MG Multi-Ingredient Ointment (Eucerin Unscented Cr) 1 appln PRN PRN EXT 11/20/17 10:45 12/20/17 10:44 11/21/17 09:04 1 APPLN I & O: 24-Hour Column 11/24/17 08:00 Intake Total 100 ml Output Total 500 ml Balance -400 ml Vital Signs: Date Time Temp Pulse Resp B/P (MAP) Pulse Ox O2 Delivery O2 Flow Rate FiO2 11/23/17 15:38 36.4 74 19 96/67 (77) 96 Nasal Cannula 2.0 Humidified Oxygen 11/23/17 14:11 80 14 97 Nasal Cannula 3.0 11/23/17 12:00 36.6 76 16 93/63 (73) 94 Nasal Cannula 2.0 Humidified Oxygen 11/23/17 12:00 Nasal Cannula 2.0 11/23/17 08:47 83 103/68 (80) 11/23/17 08:00 36.1 75 19 95/64 (74) 96 CPAP 11/23/17 07:44 Nasal Cannula 2.0 11/23/17 07:21 75 96 2.0 11/23/17 07:21 75 16 97 BiPAP/CPAP 2.0 11/23/17 04:45 36.7 53 18 93/63 (73) 96 Nasal Cannula 3.0 11/23/17 04:05 Nasal Cannula 2.0 BiPAP 11/23/17 02:07 75 16 94 BiPAP/CPAP 2.0 11/23/17 00:05 Nasal Cannula 2.0 BiPAP 11/22/17 23:58 74 97 2.0 11/22/17 23:53 36.7 70 17 112/72 (85) 97 11/22/17 20:27 37.0 81 16 95/58 (70) 97 Nasal Cannula 2.0 11/22/17 20:05 Nasal Cannula 2.0 11/22/17 19:06 78 16 93 Nasal Cannula 2.0 11/22/17 15:57 Nasal Cannula 2.0 Laboratory Results: Last 24 Hours Test 11/23/17 06:06 11/23/17 09:00 White Blood Count 15.75 K/uL Red Blood Count 4.54 M/uL Hemoglobin 13.2 g/dL Hematocrit 43.3 % Mean Corpuscular Volume 95.4 fL Mean Corpuscular Hemoglobin 29.1 pg Mean Corpuscular Hemoglobin Concent 30.5 g/dl RDW Standard Deviation 46.1 fL RDW Coefficient of Variation 13.3 % Platelet Count 122 K/uL Mean Platelet Volume 9.7 fL Sodium Level 137 mmol/L Potassium Level 4.1 mmol/L Chloride Level 102 mmol/L Carbon Dioxide Level 34 mmol/L Anion Gap 1.0 mmol/L Blood Urea Nitrogen 26 mg/dl Creatinine 0.99 mg/dl Est Creatinine Clear Calc Drug Dose 93.2 ml/min Estimated GFR () 94.2 Estimated GFR (Non- 81.3 BUN/Creatinine Ratio 26.8 Random Glucose 88 mg/dl Calcium Level 8.3 mg/dl Arterial Blood pH 7.37 Arterial Blood Partial Pressure CO2 57 mmHg Arterial Blood Partial Pressure O2 62 mm/Hg Arterial Blood HCO3 32 mmol/L Arterial Blood Oxygen Saturation 90.5 % Arterial Blood Base Excess 5.1 mEq/L Arterial Blood Gas Delivery 2L Nino Test POS
--- NOTE | 2017-11-23 20:50 | Progress Note ---
Medicine Progress Note Date & Time of Visit: Nov 23, 2017 at 20:50. Subjective Pt was seen and examined Lying in bed with no distress Pt said that he feels tired today denies any chest pain, palpitation, dizziness Objective Last 8 Hrs Date Time Temp Pulse Resp B/P (MAP) Pulse Ox O2 Delivery O2 Flow Rate FiO2 11/23/17 19:46 36.3 90 18 111/74 (86) 90 Nasal Cannula 2.0 11/23/17 19:20 93 14 93 Nasal Cannula 2.0 11/23/17 16:00 Nasal Cannula 2.0 11/23/17 15:38 36.4 74 19 96/67 (77) 96 Nasal Cannula 2.0 Humidified Oxygen 11/23/17 14:11 80 14 97 Nasal Cannula 3.0 Physical Exam: General- No acute distress Head- atraumatic Eyes- PERRL, EOMI ENT- oropharynx clear Neck- supple, no JVD Lungs- Poor air entry Heart- regular rhythm Abdomen- normal bowel sounds, soft Extremities- B/L +edema Neuro- alert, oriented x 3; PERRL, EOMI Skin- warm & dry Laboratory Results: Last 24 Hours Test 11/23/17 06:06 11/23/17 09:00 White Blood Count 15.75 K/uL Red Blood Count 4.54 M/uL Hemoglobin 13.2 g/dL Hematocrit 43.3 % Mean Corpuscular Volume 95.4 fL Mean Corpuscular Hemoglobin 29.1 pg Mean Corpuscular Hemoglobin Concent 30.5 g/dl RDW Standard Deviation 46.1 fL RDW Coefficient of Variation 13.3 % Platelet Count 122 K/uL Mean Platelet Volume 9.7 fL Sodium Level 137 mmol/L Potassium Level 4.1 mmol/L Chloride Level 102 mmol/L Carbon Dioxide Level 34 mmol/L Anion Gap 1.0 mmol/L Blood Urea Nitrogen 26 mg/dl Creatinine 0.99 mg/dl Est Creatinine Clear Calc Drug Dose 93.2 ml/min Estimated GFR () 94.2 Estimated GFR (Non- 81.3 BUN/Creatinine Ratio 26.8 Random Glucose 88 mg/dl Calcium Level 8.3 mg/dl Arterial Blood pH 7.37 Arterial Blood Partial Pressure CO2 57 mmHg Arterial Blood Partial Pressure O2 62 mm/Hg Arterial Blood HCO3 32 mmol/L Arterial Blood Oxygen Saturation 90.5 % Arterial Blood Base Excess 5.1 mEq/L Arterial Blood Gas Delivery 2L Nino Test POS Assessment & Plan PAROXYSMAL A FIB: Rate control on sinus rhythm Was on heparin drip and cardizem initially, that was d/c case discussed with Cardiology dr. Pablo recommended to continue sotalol and diltiazem. Continue Coumadin INR 2.4 Stable to discharge home from cardiology standpoint Stable ACUTE ON CHRONIC RESPIRATORY FAILURE: with Hypoxemia and hypercapnia Likely secondary to COPD exacerbation CXR showed no infiltrate, no pulmonary congestion Afebrile, mild leukocytosis Blood cx negative Continue oxygen supplement and BIPAP as needed On Xopenex/Atrovent nebs q 4 Levaquin discontinued Continue prednisone Pulmonology consulted, appreciate recommendations CO2 is trending down to 45 Pulm recommended acetazolamide for 3 days ABG done this yesterday showed elevated bicarb Repeat ABG today showed bicarb improved Continue BIPAP at night and whenever pt sleeps ECHO showed * Sinus rhythm was present during the echocardiogram. * The left ventricular wall motion was grossly normal on technically limited assessment. * The LV Ejection Fraction = 55-60%. * Grade I diastolic dysfunction, (abnormal relaxation pattern). * Doppler findings do not suggest pulmonary hypertension. * There is no significant valvualar heart disease. * The right ventricle is normal in size and function. ABNORMAL UA UA POSITIVE urine culture negative Afebrile and no leukocytosis CHRONIC LYMPHEDEMA: of B/L LE Chronic Lymphedema and venous stasis was getting Lasix 40mg, that has been held due to elevated Bicarb LE US negative for DVT Wound care consulted Continue diuretic DEPRESSION/ANXIETY: On zoloft Continue ativan prn anxiety DVT px on Coumadin CODE STATUS FULL CODE Consultants: Cardio Wound care Current Inpatient Medications: Current Inpatient Medications Medications (Trade) Dose Ordered Sig/Denisse Route Start Time Stop Time Status Last Admin Dose Admin Acetaminophen (Tylenol Tab) 650 mg Q4H PRN PO 11/15/17 22:45 12/15/17 22:44 Nitroglycerin (Nitrostat Tab) 0.4 mg UD PRN SL 11/15/17 23:00 12/15/17 22:59 Lorazepam (Ativan Tab) 0.5 mg TID PRN PO 11/15/17 23:15 12/15/17 23:14 11/22/17 20:40 0.5 MG Sertraline HCl (Zoloft Tab) 50 mg HS PO 11/16/17 21:00 12/16/17 20:59 11/22/17 20:37 50 MG Miscellaneous Information (Order Awaiting Action) 1 ea QS N/A 11/16/17 08:00 12/16/17 07:59 Lactobacillus Acidophilus (Floranex Tab) 1 tab DAILY PO 11/16/17 09:00 12/16/17 08:59 11/23/17 08:43 1 TAB Miscellaneous Information (Order Awaiting Action) 1 ea QS N/A 11/16/17 08:00 12/16/17 07:59 Ipratropium [place] (Atrovent 0.02% 0.5MG/2.5ML Neb) 0.5 mg Q6R INH 11/16/17 03:00 12/16/17 02:59 11/23/17 19:18 0.5 MG Levalbuterol (Xopenex 1.25MG/ 0.5ML Neb) 1.25 mg Q6R INH 11/16/17 03:00 12/16/17 02:59 11/23/17 19:18 1.25 MG Ipratropium [place] (Atrovent 0.02% 0.5MG/2.5ML Neb) 0.5 mg Q4H PRN INH 11/15/17 23:30 12/15/17 23:29 Levalbuterol (Xopenex 0.63 Mg/ 3 Ml Neb) 0.63 mg Q4H PRN INH 11/15/17 23:30 12/15/17 23:29 Sotalol HCl (Betapace Tab) 80 mg BID PO 11/17/17 21:00 12/17/17 20:59 11/23/17 08:43 80 MG Warfarin Sodium (Coumadin Tab) 5 mg DAILY@16 PO 11/17/17 16:00 12/17/17 15:59 11/23/17 15:53 5 MG Nicotine (Nicoderm Cq 14MG Patch) 1 patch QAM TD 11/18/17 09:00 12/18/17 08:59 Miscellaneous (Remove Nicoderm Patch) 1 ea HS N/A 11/18/17 21:00 12/18/17 20:59 Potassium Chloride (Klor-Con Tab) 20 meq QAM PO 11/19/17 09:00 12/19/17 08:59 11/23/17 08:43 20 MEQ Diltiazem HCl (Cardizem Cd Cap) 180 mg QAM PO 11/19/17 09:00 12/19/17 08:59 11/23/17 08:45 180 MG Multi-Ingredient Ointment (Eucerin Unscented Cr) 1 appln PRN PRN EXT 11/20/17 10:45 12/20/17 10:44 11/21/17 09:04 1 APPLN
[2017-11-23] MEDS: SERTRALINE HCL 50 MG TAB PO SCH (21:39)
[2017-11-23] MEDS: LORAZEPAM 0.5 MG TAB PO PRN (21:41)
[2017-11-24] VITALS (12 sets, daily range): BP systolic 95–117; BP diastolic 65–77; PULSE 71–84; TEMP 36.4–36.9; O2SAT 91–97
[2017-11-24] MEDS: IPRATROPIUM BROMIDE NEB SOLN 0.02% 2.5 ML VIAL INH SCH ×3 (07:15→19:55)
[2017-11-24] MEDS: LEVALBUTEROL 1.25MG/0.5ML NEB INH SCH ×3 (07:15→19:55)
[2017-11-24] MEDS: ANORO ELLIPTA~ORDER AWAITING ACTION SCH ×4 (08:00→23:29)
[2017-11-24] MEDS: NICOTINE 14 MG/24 HR TDSY TD SCH (08:51)
[2017-11-24] MEDS: SOTALOL HCL 80 MG TAB PO SCH ×2 (08:52→20:56)
[2017-11-24] MEDS: LACTOBACILLUS ACIDOPHILUS (FLORANEX) TAB PO SCH (08:52)
[2017-11-24] MEDS: POTASSIUM CHLORIDE 20 MEQ TABCR PO SCH (08:52)
[2017-11-24] MEDS: DILTIAZEM HCL 180 MG CAPCR PO SCH (08:52)
[2017-11-24 09:12] LABS: CREATININE 0.73 mg/dl (0.60-1.40); POTASSIUM 4.3 mmol/L (3.5-5.1)
[2017-11-24 11:55] LABS: INR 3.2 (0.9-1.1)
[2017-11-24] MEDS: WARFARIN SOD 5 MG TAB PO SCH (16:04)
--- NOTE | 2017-11-24 20:02 | Progress Note ---
Medicine Progress Note Date & Time of Visit: Nov 24, 2017 at 09:54. Subjective pt was seen and examined Lying in bed with no distress Pt said that he feels OK He said that he did not sleep much last night He said that his sister in the hospital and he does not have any ride to go home today Denies any chest pain, palpitation, dizziness and SOB Objective Last 8 Hrs Date Time Temp Pulse Resp B/P (MAP) Pulse Ox O2 Delivery O2 Flow Rate FiO2 11/24/17 19:43 36.9 83 24 115/77 (90) 94 BiPAP 11/24/17 15:40 Nasal Cannula 3.0 BiPAP 11/24/17 15:17 36.4 77 20 104/71 (82) 96 11/24/17 14:04 71 14 97 BiPAP/CPAP 3.0 11/24/17 12:13 36.6 81 16 101/71 (81) 97 11/24/17 12:00 95 Room Air 3.0 96 Physical Exam: General- No acute distress Head- atraumatic Eyes- PERRL, EOMI ENT- oropharynx clear Neck- supple, no JVD Lungs- Poor air entry Heart- regular rhythm Abdomen- normal bowel sounds, soft Extremities- B/L +edema Neuro- alert, oriented x 3; PERRL, EOMI Skin- warm & dry Laboratory Results: Last 24 Hours Test 11/24/17 07:37 11/24/17 11:13 Arterial Blood pH 7.37 Arterial Blood Partial Pressure CO2 55 mmHg Arterial Blood Partial Pressure O2 84 mm/Hg Arterial Blood HCO3 31 mmol/L Arterial Blood Oxygen Saturation 95.9 % Arterial Blood Base Excess 4.4 mEq/L Arterial Blood Gas Delivery 3L Nino Test POS Sodium Level 136 mmol/L Potassium Level 4.3 mmol/L Chloride Level 103 mmol/L Carbon Dioxide Level 29 mmol/L Anion Gap 4.0 mmol/L Blood Urea Nitrogen 22 mg/dl Creatinine 0.73 mg/dl Est Creatinine Clear Calc Drug Dose 126.4 ml/min Estimated GFR () 115.2 Estimated GFR (Non- 99.4 BUN/Creatinine Ratio 29.6 Random Glucose 95 mg/dl Calcium Level 8.0 mg/dl Prothrombin Time 32.9 SECONDS Prothromb Time International Ratio 3.2 Assessment & Plan PAROXYSMAL A FIB: Rate control on sinus rhythm Was on heparin drip and cardizem initially, that was d/c case discussed with Cardiology dr. Pablo recommended to continue sotalol and diltiazem. Continue Coumadin INR 3.2 today will decrease coumadin to 4 mg daily Stable to discharge home from cardiology standpoint Stable ACUTE ON CHRONIC RESPIRATORY FAILURE: with Hypoxemia and hypercapnia Likely secondary to COPD exacerbation CXR showed no infiltrate, no pulmonary congestion Afebrile, mild leukocytosis Blood cx negative Continue oxygen supplement and BIPAP as needed On Xopenex/Atrovent nebs q 4 Levaquin discontinued Continue prednisone Pulmonology consulted, appreciate recommendations CO2 is trending down to 45 Pulm recommended acetazolamide for 3 days ABG done this yesterday showed elevated bicarb Repeat ABG today showed bicarb improved Continue BIPAP at night and whenever pt sleeps ECHO showed * Sinus rhythm was present during the echocardiogram. * The left ventricular wall motion was grossly normal on technically limited assessment. * The LV Ejection Fraction = 55-60%. * Grade I diastolic dysfunction, (abnormal relaxation pattern). * Doppler findings do not suggest pulmonary hypertension. * There is no significant valvualar heart disease. * The right ventricle is normal in size and function. ABNORMAL UA UA POSITIVE urine culture negative Afebrile and no leukocytosis CHRONIC LYMPHEDEMA: of B/L LE Chronic Lymphedema and venous stasis was getting Lasix 40mg, that has been held due to elevated Bicarb LE US negative for DVT Wound care consulted Continue diuretic DEPRESSION/ANXIETY: On zoloft Continue ativan prn anxiety DVT px on Coumadin CODE STATUS FULL CODE DISPOSITION Will discharge home tomorrow with home health Consultants: Cardio Wound care Current Inpatient Medications: Current Inpatient Medications Medications (Trade) Dose Ordered Sig/Denisse Route Start Time Stop Time Status Last Admin Dose Admin Acetaminophen (Tylenol Tab) 650 mg Q4H PRN PO 11/15/17 22:45 12/15/17 22:44 Nitroglycerin (Nitrostat Tab) 0.4 mg UD PRN SL 11/15/17 23:00 12/15/17 22:59 Lorazepam (Ativan Tab) 0.5 mg TID PRN PO 11/15/17 23:15 12/15/17 23:14 11/23/17 21:41 0.5 MG Sertraline HCl (Zoloft Tab) 50 mg HS PO 11/16/17 21:00 12/16/17 20:59 1/4/18 21:39 50 MG Miscellaneous Information (Order Awaiting Action) 1 ea QS N/A 11/16/17 08:00 12/16/17 07:59 Lactobacillus Acidophilus (Floranex Tab) 1 tab DAILY PO 11/16/17 09:00 12/16/17 08:59 11/24/17 08:52 1 TAB Miscellaneous Information (Order Awaiting Action) 1 ea QS N/A 11/16/17 08:00 12/16/17 07:59 Ipratropium [place] (Atrovent 0.02% 0.5MG/2.5ML Neb) 0.5 mg Q6R INH 11/16/17 03:00 12/16/17 02:59 11/24/17 14:03 0.5 MG Levalbuterol (Xopenex 1.25MG/ 0.5ML Neb) 1.25 mg Q6R INH 11/16/17 03:00 12/16/17 02:59 11/24/17 14:03 1.25 MG Ipratropium [place] (Atrovent 0.02% 0.5MG/2.5ML Neb) 0.5 mg Q4H PRN INH 11/15/17 23:30 12/15/17 23:29 Levalbuterol (Xopenex 0.63 Mg/ 3 Ml Neb) 0.63 mg Q4H PRN INH 11/15/17 23:30 12/15/17 23:29 Sotalol HCl (Betapace Tab) 80 mg BID PO 11/17/17 21:00 12/17/17 20:59 11/24/17 08:52 80 MG Warfarin Sodium (Coumadin Tab) 5 mg DAILY@16 PO 11/17/17 16:00 12/17/17 15:59 11/24/17 16:04 5 MG Nicotine (Nicoderm Cq 14MG Patch) 1 patch QAM TD 11/18/17 09:00 12/18/17 08:59 Miscellaneous (Remove Nicoderm Patch) 1 ea HS N/A 11/18/17 21:00 12/18/17 20:59 Potassium Chloride (Klor-Con Tab) 20 meq QAM PO 11/19/17 09:00 12/19/17 08:59 11/24/17 08:52 20 MEQ Diltiazem HCl (Cardizem Cd Cap) 180 mg QAM PO 11/19/17 09:00 12/19/17 08:59 11/24/17 08:52 180 MG Multi-Ingredient Ointment (Eucerin Unscented Cr) 1 appln PRN PRN EXT 11/20/17 10:45 12/20/17 10:44 11/21/17 09:04 1 APPLN
[2017-11-24] MEDS: SERTRALINE HCL 50 MG TAB PO SCH (20:57)
[2017-11-24] MEDS: LORAZEPAM 0.5 MG TAB PO PRN (21:00)
[2017-11-25] VITALS (11 sets, daily range): BP systolic 97–162; BP diastolic 64–83; PULSE 68–87; TEMP 36.5–36.8; O2SAT 93–100
[2017-11-25] MEDS: IPRATROPIUM BROMIDE NEB SOLN 0.02% 2.5 ML VIAL INH SCH ×4 (03:00→20:12)
[2017-11-25] MEDS: LEVALBUTEROL 1.25MG/0.5ML NEB INH SCH ×4 (03:00→20:12)
[2017-11-25 06:01] LABS: HEMATOCRIT 42.7 % (42-52); HEMOGLOBIN 13.5 g/dL (14.0-18.0); MEAN CELL VOLUME 93.4 fL (80-100); MEAN CORPUSCULAR HEMOGLOBIN 29.5 pg (25-34); MEAN CORPUSCULAR HGB CONC 31.6 g/dl (32-36); MEAN PLATELET VOLUME 10.2 fL (7.4-10.4); PLATELET COUNT 134 K/uL (130-400); RED CELL DISTRIBUTION WIDTH CV 13.5 % (11.5-14.5); WHITE BLOOD COUNT 14.43 K/uL (4.8-10.8)
[2017-11-25 06:10] LABS: INR 3.5 (0.9-1.1)
[2017-11-25 06:32] LABS: CREATININE 0.67 mg/dl (0.60-1.40)
[2017-11-25] MEDS: ANORO ELLIPTA~ORDER AWAITING ACTION SCH ×3 (08:00→20:33)
[2017-11-25] MEDS: SOTALOL HCL 80 MG TAB PO SCH ×2 (08:13→19:51)
[2017-11-25] MEDS: LACTOBACILLUS ACIDOPHILUS (FLORANEX) TAB PO SCH (08:13)
[2017-11-25] MEDS: DILTIAZEM HCL 180 MG CAPCR PO SCH (08:13)
[2017-11-25] MEDS: POTASSIUM CHLORIDE 20 MEQ TABCR PO SCH (08:13)
[2017-11-25] MEDS: NICOTINE 14 MG/24 HR TDSY TD SCH (08:14)
[2017-11-25] MEDS: WARFARIN SOD 3 MG TAB PO SCH (17:16)
[2017-11-25] MEDS: SERTRALINE HCL 50 MG TAB PO SCH (19:51)
[2017-11-25] MEDS: LORAZEPAM 0.5 MG TAB PO PRN (19:58)
--- NOTE | 2017-11-25 20:14 | Progress Note ---
Medicine Progress Note Date & Time of Visit: Nov 25, 2017 at 20:10. Subjective Pt was seen and examined Lying in bed with no distress Pt said that he feels fine He said that he does not have any transportation to go home Pt sister is admitted in the hospital He does not have anyone to take care of him if he discharges home Pt agreed to go to rehab Denies any chest pain, palpitation, dizziness and SOB Objective Last 8 Hrs Date Time Temp Pulse Resp B/P (MAP) Pulse Ox O2 Delivery O2 Flow Rate FiO2 11/25/17 19:36 36.5 87 20 103/68 (80) 100 BiPAP 11/25/17 16:00 Nasal Cannula 3.0 BiPAP 11/25/17 14:53 79 97 2.0 11/25/17 14:52 79 16 97 BiPAP/CPAP 2.0 11/25/17 14:41 79 20 99/66 (77) 97 BiPAP Physical Exam: General- No acute distress Head- atraumatic Eyes- PERRL, EOMI ENT- oropharynx clear Neck- supple, no JVD Lungs- Poor air entry Heart- regular rhythm Abdomen- normal bowel sounds, soft Extremities- B/L +edema Neuro- alert, oriented x 3; PERRL, EOMI Skin- warm & dry Laboratory Results: Last 24 Hours Test 11/25/17 05:26 White Blood Count 14.43 K/uL Red Blood Count 4.57 M/uL Hemoglobin 13.5 g/dL Hematocrit 42.7 % Mean Corpuscular Volume 93.4 fL Mean Corpuscular Hemoglobin 29.5 pg Mean Corpuscular Hemoglobin Concent 31.6 g/dl RDW Standard Deviation 46.0 fL RDW Coefficient of Variation 13.5 % Platelet Count 134 K/uL Mean Platelet Volume 10.2 fL Prothrombin Time 35.9 SECONDS Prothromb Time International Ratio 3.5 Creatinine 0.67 mg/dl Est Creatinine Clear Calc Drug Dose 137.4 ml/min Estimated GFR () 119.4 Estimated GFR (Non- 103.0 Assessment & Plan PAROXYSMAL A FIB: Rate control on sinus rhythm Was on heparin drip and cardizem initially, that was d/c case discussed with Cardiology dr. Pablo recommended to continue sotalol and diltiazem. Continue Coumadin INR 3.2 today will decrease coumadin to 4 mg daily Stable to discharge home from cardiology standpoint Stable ACUTE ON CHRONIC RESPIRATORY FAILURE: with Hypoxemia and hypercapnia Likely secondary to COPD exacerbation CXR showed no infiltrate, no pulmonary congestion Afebrile, mild leukocytosis Blood cx negative Continue oxygen supplement and BIPAP as needed On Xopenex/Atrovent nebs q 4 Levaquin discontinued Continue prednisone Pulmonology consulted, appreciate recommendations CO2 is trending down to 45 Pulm recommended acetazolamide for 3 days ABG done this yesterday showed elevated bicarb Repeat ABG today showed bicarb improved Continue BIPAP at night and whenever pt sleeps Stable ECHO showed * Sinus rhythm was present during the echocardiogram. * The left ventricular wall motion was grossly normal on technically limited assessment. * The LV Ejection Fraction = 55-60%. * Grade I diastolic dysfunction, (abnormal relaxation pattern). * Doppler findings do not suggest pulmonary hypertension. * There is no significant valvualar heart disease. * The right ventricle is normal in size and function. ABNORMAL UA UA POSITIVE urine culture negative Afebrile and no leukocytosis CHRONIC LYMPHEDEMA: of B/L LE Chronic Lymphedema and venous stasis was getting Lasix 40mg, that has been held due to elevated Bicarb LE US negative for DVT Wound care consulted Diuretic PRN DEPRESSION/ANXIETY: On zoloft Continue ativan prn anxiety DVT px on Coumadin CODE STATUS FULL CODE DISPOSITION Waiting for placement to discharge Consultants: Cardio Wound care Current Inpatient Medications: Current Inpatient Medications Medications (Trade) Dose Ordered Sig/Denisse Route Start Time Stop Time Status Last Admin Dose Admin Acetaminophen (Tylenol Tab) 650 mg Q4H PRN PO 11/15/17 22:45 12/15/17 22:44 Nitroglycerin (Nitrostat Tab) 0.4 mg UD PRN SL 11/15/17 23:00 12/15/17 22:59 Lorazepam (Ativan Tab) 0.5 mg TID PRN PO 11/15/17 23:15 12/15/17 23:14 11/25/17 19:58 0.5 MG Sertraline HCl (Zoloft Tab) 50 mg HS PO 11/16/17 21:00 12/16/17 20:59 11/25/17 19:51 50 MG Miscellaneous Information (Order Awaiting Action) 1 ea QS N/A 11/16/17 08:00 12/16/17 07:59 Lactobacillus Acidophilus (Floranex Tab) 1 tab DAILY PO 11/16/17 09:00 12/16/17 08:59 11/25/17 08:13 1 TAB Miscellaneous Information (Order Awaiting Action) 1 ea QS N/A 11/16/17 08:00 12/16/17 07:59 Ipratropium [place] (Atrovent 0.02% 0.5MG/2.5ML Neb) 0.5 mg Q6R INH 11/16/17 03:00 12/16/17 02:59 11/25/17 14:52 0.5 MG Levalbuterol (Xopenex 1.25MG/ 0.5ML Neb) 1.25 mg Q6R INH 11/16/17 03:00 12/16/17 02:59 11/25/17 14:52 1.25 MG Ipratropium [place] (Atrovent 0.02% 0.5MG/2.5ML Neb) 0.5 mg Q4H PRN INH 11/15/17 23:30 12/15/17 23:29 Levalbuterol (Xopenex 0.63 Mg/ 3 Ml Neb) 0.63 mg Q4H PRN INH 11/15/17 23:30 12/15/17 23:29 Sotalol HCl (Betapace Tab) 80 mg BID PO 11/17/17 21:00 12/17/17 20:59 11/25/17 19:51 80 MG Nicotine (Nicoderm Cq 14MG Patch) 1 patch QAM TD 11/18/17 09:00 12/18/17 08:59 Miscellaneous (Remove Nicoderm Patch) 1 ea HS N/A 11/18/17 21:00 12/18/17 20:59 Potassium Chloride (Klor-Con Tab) 20 meq QAM PO 11/19/17 09:00 12/19/17 08:59 11/25/17 08:13 20 MEQ Diltiazem HCl (Cardizem Cd Cap) 180 mg QAM PO 11/19/17 09:00 12/19/17 08:59 11/25/17 08:13 180 MG Multi-Ingredient Ointment (Eucerin Unscented Cr) 1 appln PRN PRN EXT 11/20/17 10:45 12/20/17 10:44 11/21/17 09:04 1 APPLN Warfarin Sodium (Coumadin Tab) 3 mg DAILY@16 PO 11/25/17 16:00 12/17/17 15:59 11/25/17 17:16 3 MG
[2017-11-26] VITALS (13 sets, daily range): BP systolic 84–114; BP diastolic 62–74; PULSE 61–78; TEMP 36.2–36.8; O2SAT 93–99
[2017-11-26] MEDS ORDERED: SODIUM CHLORIDE 0.9% 250ML 250 ML IV ONE (04:45)
[2017-11-26 05:08] LABS: BASO % 0.1 %; BASO ABS # 0.01 K/uL (0-0.2); EOS % 1.3 %; EOS ABS # 0.18 K/uL (0-0.5); HEMATOCRIT 40.3 % (42-52); HEMOGLOBIN 12.6 g/dL (14.0-18.0); IG# 0.08 K/uL (0.00-0.02); LYMPH % 6.3 %; MEAN CELL VOLUME 93.5 fL (80-100); MEAN CORPUSCULAR HEMOGLOBIN 29.2 pg (25-34); MEAN CORPUSCULAR HGB CONC 31.3 g/dl (32-36); MEAN PLATELET VOLUME 9.2 fL (7.4-10.4); MONO % 11.7 %; MONO ABS # 1.68 K/uL (0.11-0.59); NEUT ABS # 11.54 K/uL (1.4-6.5); PLATELET COUNT 123 K/uL (130-400); RED CELL DISTRIBUTION WIDTH CV 13.4 % (11.5-14.5); RED CELL DISTRIBUTION WIDTH SD 46.1 fL (36.4-46.3); WHITE BLOOD COUNT 14.39 K/uL (4.8-10.8)
[2017-11-26 05:21] LABS: INR 3.8 (0.9-1.1)
[2017-11-26 05:27] LABS: CALCIUM 8.2 mg/dl (8.5-10.1); CREATININE 0.8 mg/dl (0.60-1.40); POTASSIUM 3.9 mmol/L (3.5-5.1)
[2017-11-26] MEDS: IPRATROPIUM BROMIDE NEB SOLN 0.02% 2.5 ML VIAL INH SCH ×3 (07:34→19:35)
[2017-11-26] MEDS: LEVALBUTEROL 1.25MG/0.5ML NEB INH SCH ×3 (07:34→19:35)
[2017-11-26] MEDS: ANORO ELLIPTA~ORDER AWAITING ACTION SCH ×3 (08:00→23:32)
[2017-11-26] MEDS: LACTOBACILLUS ACIDOPHILUS (FLORANEX) TAB PO SCH (08:42)
[2017-11-26] MEDS: SOTALOL HCL 80 MG TAB PO SCH ×2 (08:42→20:46)
[2017-11-26] MEDS: DILTIAZEM HCL 180 MG CAPCR PO SCH (08:43)
[2017-11-26] MEDS: NICOTINE 14 MG/24 HR TDSY TD SCH (08:43)
[2017-11-26] MEDS: POTASSIUM CHLORIDE 20 MEQ TABCR PO SCH (08:43)
[2017-11-26] MEDS: WARFARIN SOD 3 MG TAB PO SCH (14:41)
[2017-11-26] MEDS: ACETAMINOPHEN 325 MG TAB PO PRN (19:55)
--- NOTE | 2017-11-26 20:35 | Progress Note ---
Medicine Progress Note Date & Time of Visit: Nov 26, 2017 at 10:31. Subjective Pt was seen and examined Sitting in bed with no distress Pt sister discharged yesterday from the hospital Sister will not be able to take care him Pt said that he does not have any ride to go home today Pt agreed to go to rehab for a few days until his sister gets better Denies any chest pain, palpitation, dizziness and SOB Objective Last 8 Hrs Date Time Temp Pulse Resp B/P (MAP) Pulse Ox O2 Delivery O2 Flow Rate FiO2 11/26/17 19:52 36.7 62 18 110/72 (85) 99 2.0 11/26/17 19:35 76 16 93 Nasal Cannula 2.0 11/26/17 16:00 Nasal Cannula 3.0 BiPAP 11/26/17 15:00 36.4 61 18 109/72 (84) 98 Nasal Cannula 2.0 11/26/17 14:24 74 16 96 Nasal Cannula 2.0 Physical Exam: General- No acute distress Head- atraumatic Eyes- PERRL, EOMI ENT- oropharynx clear Neck- supple, no JVD Lungs- Poor air entry Heart- regular rhythm Abdomen- normal bowel sounds, soft Extremities- B/L +edema Neuro- alert, oriented x 3; PERRL, EOMI Skin- warm & dry Laboratory Results: Last 24 Hours Test 11/26/17 04:56 11/26/17 04:57 Prothrombin Time 39.3 SECONDS Prothromb Time International Ratio 3.8 Sodium Level 138 mmol/L Potassium Level 3.9 mmol/L Chloride Level 102 mmol/L Carbon Dioxide Level 34 mmol/L Anion Gap 2.0 mmol/L Blood Urea Nitrogen 17 mg/dl Creatinine 0.80 mg/dl Est Creatinine Clear Calc Drug Dose 115.1 ml/min Estimated GFR () 111.0 Estimated GFR (Non- 95.7 BUN/Creatinine Ratio 21.2 Random Glucose 99 mg/dl Calcium Level 8.2 mg/dl Magnesium Level 2.2 mg/dl White Blood Count 14.39 K/uL Red Blood Count 4.31 M/uL Hemoglobin 12.6 g/dL Hematocrit 40.3 % Mean Corpuscular Volume 93.5 fL Mean Corpuscular Hemoglobin 29.2 pg Mean Corpuscular Hemoglobin Concent 31.3 g/dl Platelet Count 123 K/uL Mean Platelet Volume 9.2 fL Neutrophils (%) (Auto) 80.0 % Lymphocytes (%) (Auto) 6.3 % Monocytes (%) (Auto) 11.7 % Eosinophils (%) (Auto) 1.3 % Basophils (%) (Auto) 0.1 % Neutrophils # (Auto) 11.54 K/uL Lymphocytes # (Auto) 0.90 K/uL Monocytes # (Auto) 1.68 K/uL Eosinophils # (Auto) 0.18 K/uL Basophils # (Auto) 0.01 K/uL RDW Standard Deviation 46.1 fL RDW Coefficient of Variation 13.4 % Immature Granulocyte % (Auto) 0.6 % Immature Granulocyte # (Auto) 0.08 K/uL Lactic Acid Level 0.9 mmol/L Assessment & Plan PAROXYSMAL A FIB: Rate control on sinus rhythm Was on heparin drip and cardizem initially, that was d/c case discussed with Cardiology dr. Pablo recommended to continue sotalol and diltiazem. Continue Coumadin INR 3.2 today will decrease coumadin to 4 mg daily Stable to discharge home from cardiology standpoint Stable ACUTE ON CHRONIC RESPIRATORY FAILURE: with Hypoxemia and hypercapnia Likely secondary to COPD exacerbation CXR showed no infiltrate, no pulmonary congestion Afebrile, mild leukocytosis Blood cx negative Continue oxygen supplement and BIPAP as needed On Xopenex/Atrovent nebs q 4 Levaquin discontinued Continue prednisone Pulmonology consulted, appreciate recommendations CO2 is trending down to 45 Pulm recommended acetazolamide for 3 days ABG done this yesterday showed elevated bicarb Repeat ABG today showed bicarb improved Continue BIPAP at night and whenever pt sleeps Stable ECHO showed * Sinus rhythm was present during the echocardiogram. * The left ventricular wall motion was grossly normal on technically limited assessment. * The LV Ejection Fraction = 55-60%. * Grade I diastolic dysfunction, (abnormal relaxation pattern). * Doppler findings do not suggest pulmonary hypertension. * There is no significant valvualar heart disease. * The right ventricle is normal in size and function. ABNORMAL UA UA POSITIVE urine culture negative Afebrile and no leukocytosis CHRONIC LYMPHEDEMA: of B/L LE Chronic Lymphedema and venous stasis was getting Lasix 40mg, that has been held due to elevated Bicarb LE US negative for DVT Wound care consulted Diuretic PRN DEPRESSION/ANXIETY: On zoloft Continue ativan prn anxiety DVT px on Coumadin CODE STATUS FULL CODE DISPOSITION Waiting for placement to discharge Consultants: Cardio Wound care Current Inpatient Medications: Current Inpatient Medications Medications (Trade) Dose Ordered Sig/Denisse Route Start Time Stop Time Status Last Admin Dose Admin Acetaminophen (Tylenol Tab) 650 mg Q4H PRN PO 11/15/17 22:45 12/15/17 22:44 11/26/17 19:55 650 MG Nitroglycerin (Nitrostat Tab) 0.4 mg UD PRN SL 11/15/17 23:00 12/15/17 22:59 Lorazepam (Ativan Tab) 0.5 mg TID PRN PO 11/15/17 23:15 12/15/17 23:14 11/25/17 19:58 0.5 MG Sertraline HCl (Zoloft Tab) 50 mg HS PO 11/16/17 21:00 12/16/17 20:59 11/25/17 19:51 50 MG Miscellaneous Information (Order Awaiting Action) 1 ea QS N/A 11/16/17 08:00 12/16/17 07:59 Lactobacillus Acidophilus (Floranex Tab) 1 tab DAILY PO 11/16/17 09:00 12/16/17 08:59 11/26/17 08:42 1 TAB Miscellaneous Information (Order Awaiting Action) 1 ea QS N/A 11/16/17 08:00 12/16/17 07:59 Ipratropium Fraser (Atrovent 0.02% 0.5MG/2.5ML Neb) 0.5 mg Q6R INH 11/16/17 03:00 12/16/17 02:59 11/26/17 19:35 0.5 MG Levalbuterol (Xopenex 1.25MG/ 0.5ML Neb) 1.25 mg Q6R INH 11/16/17 03:00 12/16/17 02:59 11/26/17 19:35 1.25 MG Ipratropium Fraser (Atrovent 0.02% 0.5MG/2.5ML Neb) 0.5 mg Q4H PRN INH 11/15/17 23:30 12/15/17 23:29 Levalbuterol (Xopenex 0.63 Mg/ 3 Ml Neb) 0.63 mg Q4H PRN INH 11/15/17 23:30 12/15/17 23:29 Sotalol HCl (Betapace Tab) 80 mg BID PO 11/17/17 21:00 12/17/17 20:59 11/26/17 08:42 80 MG Nicotine (Nicoderm Cq 14MG Patch) 1 patch QAM TD 11/18/17 09:00 12/18/17 08:59 Miscellaneous (Remove Nicoderm Patch) 1 ea HS N/A 11/18/17 21:00 12/18/17 20:59 Potassium Chloride (Klor-Con Tab) 20 meq QAM PO 11/19/17 09:00 12/19/17 08:59 11/26/17 08:43 20 MEQ Diltiazem HCl (Cardizem Cd Cap) 180 mg QAM PO 11/19/17 09:00 12/19/17 08:59 11/26/17 08:43 180 MG Multi-Ingredient Ointment (Eucerin Unscented Cr) 1 appln PRN PRN EXT 11/20/17 10:45 12/20/17 10:44 11/21/17 09:04 1 APPLN Warfarin Sodium (Coumadin Tab) 3 mg DAILY@16 PO 11/25/17 16:00 12/17/17 15:59 11/25/17 17:16 3 MG
[2017-11-26] MEDS: LORAZEPAM 0.5 MG TAB PO PRN (20:40)
[2017-11-26] MEDS: SERTRALINE HCL 50 MG TAB PO SCH (20:41)
[2017-11-27] VITALS (15 sets, daily range): BP systolic 94–112; BP diastolic 56–75; PULSE 70–100; TEMP 36–36.8; O2SAT 93–99
[2017-11-27] MEDS: IPRATROPIUM BROMIDE NEB SOLN 0.02% 2.5 ML VIAL INH SCH ×4 (03:00→19:44)
[2017-11-27] MEDS: LEVALBUTEROL 1.25MG/0.5ML NEB INH SCH ×4 (03:00→19:44)
[2017-11-27] MEDS: ANORO ELLIPTA~ORDER AWAITING ACTION SCH ×3 (08:00→23:40)
[2017-11-27] MEDS: DILTIAZEM HCL 180 MG CAPCR PO SCH (08:51)
[2017-11-27] MEDS: LACTOBACILLUS ACIDOPHILUS (FLORANEX) TAB PO SCH (08:51)
[2017-11-27] MEDS: POTASSIUM CHLORIDE 20 MEQ TABCR PO SCH (08:51)
[2017-11-27] MEDS: SOTALOL HCL 80 MG TAB PO SCH ×2 (08:51→20:24)
[2017-11-27] MEDS: NICOTINE 14 MG/24 HR TDSY TD SCH (08:52)
--- NOTE | 2017-11-27 15:05 | Progress Note ---
Internal Med Progress Note Date of Service: Nov 27, 2017. Provider Documentation: SUBJECTIVE: The patient was seen and examined Still has significant SOB at rest Denies any Chest pain,palpitation OBJECTIVE: Vital Signs-as noted below Exam: General-N distress at rest Eyes-normal ENT-Normal Neck-Supple Lungs-Decreased breath sound bilaterally No wheezing and or crackles Heart-Regular Abdomen-Benign,no masses,bowel sound Extremities-No Edema Neuro-AAOx3 Lab data as noted below. ASSESSMENT & PLAN: PAROXYSMAL A FIB: Rate control on sinus rhythm Was on heparin drip and Cardizem initially, that was d/c Case discussed with Cardiology dr. Pablo recommended to continue sotalol and diltiazem. Rate is controlled Stable to discharge home from cardiology standpoint ECHO showed * Sinus rhythm was present during the echocardiogram. * The left ventricular wall motion was grossly normal on technically limited assessment. * The LV Ejection Fraction = 55-60%. * Grade I diastolic dysfunction, (abnormal relaxation pattern). * Doppler findings do not suggest pulmonary hypertension. * There is no significant valvualar heart disease. * The right ventricle is normal in size and function. Remains stable Severe COPD with ACUTE ON CHRONIC RESPIRATORY FAILURE: with Hypoxemia and hypercapnia CXR showed no infiltrate, no pulmonary congestion Blood cx negative On Xopenex/Atrovent nebs q 4 Levaquin discontinued Continue prednisone and tapering Pulmonology consulted, appreciate recommendations Received Acetazolamide for 3 days as per Pulmonary Continue BIPAP at night and whenever pt sleeps Stable ABNORMAL UA UA POSITIVE urine culture negative Afebrile and no leukocytosis CHRONIC LYMPHEDEMA: of B/L LE Left Leg is worse than the right Chronic Lymphedema and venous stasis Was on Lasix 40mg, that has been held due to elevated Bicarb LE US negative for DVT Wound care consulted Diuretic PRN DEPRESSION/ANXIETY: On Zoloft Continue Ativan prn anxiety DVT px on Coumadin CODE STATUS FULL CODE DISPOSITION Waiting for placement to discharge Consultants: Cardio Wound care DISPOSITION Awaited Vital Signs: Date Time Temp Pulse Resp B/P (MAP) Pulse Ox O2 Delivery O2 Flow Rate FiO2 11/27/17 14:24 86 94 3.0 11/27/17 14:23 86 18 94 BiPAP/CPAP 2.0 11/27/17 12:00 Nasal Cannula 2.0 BiPAP 11/27/17 11:02 82 20 106/73 (84) 97 BiPAP 2.0 11/27/17 08:15 Nasal Cannula 2.0 BiPAP 11/27/17 07:28 70 16 93 BiPAP/CPAP 2.0 11/27/17 07:14 78 20 107/75 (86) 94 BiPAP 11/27/17 04:00 99 Nasal Cannula 2.0 11/27/17 03:58 36.6 70 20 112/72 (85) 96 Nasal Cannula 2.0 BiPAP 11/27/17 00:00 99 Nasal Cannula 2.0 11/26/17 23:07 36.6 78 18 102/69 (80) 93 CPAP 11/26/17 22:13 71 98 2.0 11/26/17 20:47 93/64 (74) 11/26/17 20:00 99 Nasal Cannula 2.0 11/26/17 19:52 36.7 62 18 110/72 (85) 99 2.0 11/26/17 19:35 76 16 93 Nasal Cannula 2.0 11/26/17 16:00 Nasal Cannula 3.0 BiPAP 11/26/17 15:00 36.4 61 18 109/72 (84) 98 Nasal Cannula 2.0
[2017-11-27 15:28] LABS: WHITE BLOOD COUNT 12.52 K/uL (4.8-10.8)
[2017-11-27 15:29] LABS: HEMOGLOBIN 13.5 g/dL (14.0-18.0); MEAN CELL VOLUME 92.9 fL (80-100); MEAN CORPUSCULAR HEMOGLOBIN 29.2 pg (25-34); MEAN CORPUSCULAR HGB CONC 31.4 g/dl (32-36); MEAN PLATELET VOLUME 8.8 fL (7.4-10.4); NUCLEATED RED BLOOD CELL ABS 0.02 K/uL (0-0); PLATELET COUNT 156 K/uL (130-400); RED CELL DISTRIBUTION WIDTH CV 13.4 % (11.5-14.5); RED CELL DISTRIBUTION WIDTH SD 45.6 fL (36.4-46.3)
[2017-11-27 16:06] LABS: CALCIUM 8.2 mg/dl (8.5-10.1); CREATININE 1.29 mg/dl (0.60-1.40); PHOSPHORUS 2.6 mg/dl (2.5-4.9); POTASSIUM 4.5 mmol/L (3.5-5.1)
[2017-11-27 16:33] LABS: INR 2.6 (0.9-1.1)
[2017-11-27] MEDS: WARFARIN SOD 3 MG TAB PO SCH (17:32)
[2017-11-27] MEDS: SERTRALINE HCL 50 MG TAB PO SCH (20:24)
[2017-11-27] MEDS: LORAZEPAM 0.5 MG TAB PO PRN (20:25)
[2017-11-28] VITALS (10 sets, daily range): BP systolic 100–131; BP diastolic 66–81; PULSE 62–85; TEMP 36.4–36.8; O2SAT 94–98
[2017-11-28] MEDS: IPRATROPIUM BROMIDE NEB SOLN 0.02% 2.5 ML VIAL INH SCH ×2 (02:06→07:04)
[2017-11-28] MEDS: LEVALBUTEROL 1.25MG/0.5ML NEB INH SCH ×2 (02:06→07:04)
[2017-11-28] MEDS: ANORO ELLIPTA~ORDER AWAITING ACTION SCH ×3 (07:34→23:02)
[2017-11-28] MEDS: LACTOBACILLUS ACIDOPHILUS (FLORANEX) TAB PO SCH (07:36)
[2017-11-28] MEDS: POTASSIUM CHLORIDE 20 MEQ TABCR PO SCH (07:36)
[2017-11-28] MEDS: DILTIAZEM HCL 180 MG CAPCR PO SCH (07:37)
[2017-11-28] MEDS: SOTALOL HCL 80 MG TAB PO SCH ×2 (07:38→21:12)
[2017-11-28] MEDS: NICOTINE 14 MG/24 HR TDSY TD SCH (07:38)
[2017-11-28 07:41] LABS: CREATININE 0.91 mg/dl (0.60-1.40)
[2017-11-28] MEDS ORDERED: FUROSEMIDE INJ 40 MG in SYRINGE 0 ML IV ONE (11:00)
--- NOTE | 2017-11-28 13:12 | Progress Note ---
Internal Med Progress Note Date of Service: Nov 28, 2017. Provider Documentation: SUBJECTIVE: The patient was seen and examined Still has significant SOB at rest Denies any Chest pain,palpitation Much better today Complains of more swelling of the left leg OBJECTIVE: Vital Signs-as noted below Exam: General-No distress at rest Eyes-normal ENT-Normal Neck-Supple Lungs-Decreased breath sound bilaterally No wheezing and or crackles Heart-Regular Abdomen-Benign,no masses,bowel sound Extremities-Bilateral Legs swelling Right >>>left Neuro-AAOx3 Lab data as noted below. ASSESSMENT & PLAN: PAROXYSMAL A FIB: Rate control on sinus rhythm Was on heparin drip and Cardizem initially, that was d/c Case discussed with Cardiology dr. Pablo recommended to continue sotalol and diltiazem. Rate is controlled Stable to discharge home from cardiology standpoint ECHO showed * Sinus rhythm was present during the echocardiogram. * The left ventricular wall motion was grossly normal on technically limited assessment. * The LV Ejection Fraction = 55-60%. * Grade I diastolic dysfunction, (abnormal relaxation pattern). * Doppler findings do not suggest pulmonary hypertension. * There is no significant valvualar heart disease. * The right ventricle is normal in size and function. Remains stable No cardiac issue Severe COPD with ACUTE ON CHRONIC RESPIRATORY FAILURE: with Hypoxemia and hypercapnia CXR showed no infiltrate, no pulmonary congestion Blood cx negative On Xopenex/Atrovent nebs q4 and changed to PRN from 11/28/16 Levaquin discontinued Continue prednisone and tapering Pulmonology consulted, appreciate recommendations Received Acetazolamide for 3 days as per Pulmonary Continue BIPAP at night and whenever pt sleeps Stable and back to baseline ABNORMAL UA UA POSITIVE urine culture negative Afebrile and no leukocytosis CHRONIC LYMPHEDEMA: of B/L LE Left Leg is worse than the right Chronic Lymphedema and venous stasis Was on Lasix 40mg, that has been held due to elevated Bicarb LE US negative for DVT Wound care consulted Diuretic PRN Will try Lasix for a day or two Elevate the legs DEPRESSION/ANXIETY: On Zoloft Continue Ativan prn anxiety DVT px on Coumadin CODE STATUS FULL CODE DISPOSITION Waiting for placement to discharge Consultants: Cardio Wound care DISPOSITION Awaited to go to LTAC facility Vital Signs: Date Time Temp Pulse Resp B/P (MAP) Pulse Ox O2 Delivery O2 Flow Rate FiO2 11/28/17 12:56 Nasal Cannula 2.0 BiPAP 11/28/17 11:29 36.5 66 20 100/67 (78) 95 Nasal Cannula 2.0 11/28/17 07:42 36.5 65 22 107/72 (84) 98 CPAP 11/28/17 07:30 Nasal Cannula 2.0 BiPAP 11/28/17 07:08 72 97 2.0 11/28/17 07:07 73 18 97 BiPAP/CPAP 2.0 11/28/17 04:00 Nasal Cannula 2.0 11/28/17 02:44 36.8 62 20 131/81 (98) 98 BiPAP 2.0 11/28/17 02:06 79 18 97 BiPAP/CPAP 2.0 11/28/17 00:00 Nasal Cannula 2.0 11/27/17 22:55 36.0 86 16 95/63 (74) 98 CPAP 11/27/17 22:14 74 98 2.0 11/27/17 20:19 97 Nasal Cannula 2.0 96 11/27/17 19:44 84 18 97 Nasal Cannula 2.0 11/27/17 19:24 36.8 91 18 107/71 (83) 96 Nasal Cannula 2.0 11/27/17 16:48 97 Nasal Cannula 2.0 96 11/27/17 15:54 36.4 100 20 94/56 (69) 97 Nasal Cannula 3.0 11/27/17 14:24 86 94 3.0 11/27/17 14:23 86 18 94 BiPAP/CPAP 2.0 Lab Results: Results Past 24 Hours Test 11/27/17 15:17 11/27/17 16:10 11/28/17 06:37 Range/Units White Blood Count 12.52 4.8-10.8 K/uL Red Blood Count 4.63 4.7-6.1 M/uL Hemoglobin 13.5 14.0-18.0 g/dL Hematocrit 43.0 42-52 % Mean Corpuscular Volume 92.9 80-100 fL Mean Corpuscular Hemoglobin 29.2 25-34 pg Mean Corpuscular Hemoglobin Concent 31.4 32-36 g/dl RDW Standard Deviation 45.6 36.4-46.3 fL RDW Coefficient of Variation 13.4 11.5-14.5 % Platelet Count 156 130-400 K/uL Mean Platelet Volume 8.8 7.4-10.4 fL Nucleated RBC Absolute Count (auto) 0.02 0-0 K/uL Nucleated Red Blood Cells % 0.2 % Sodium Level 138 136-145 mmol/L Potassium Level 4.5 3.5-5.1 mmol/L Chloride Level 103 98-107 mmol/L Carbon Dioxide Level 33 21-32 mmol/L Anion Gap 2.0 3-11 mmol/L Blood Urea Nitrogen 21 7-18 mg/dl Creatinine 1.29 0.91 0.60-1.40 mg/dl Est Creatinine Clear Calc Drug Dose 71.1 100.5 ml/min Estimated GFR () 68.4 104.3 Estimated GFR (Non- 59.0 90.0 BUN/Creatinine Ratio 16.2 10-20 Random Glucose 84 70-99 mg/dl Calcium Level 8.2 8.5-10.1 mg/dl Phosphorus Level 2.6 2.5-4.9 mg/dl Magnesium Level 2.1 1.8-2.4 mg/dl Prothrombin Time 26.8 9.0-12.0 SECONDS Prothromb Time International Ratio 2.6 0.9-1.1
[2017-11-28] MEDS: ACETAMINOPHEN 325 MG TAB PO PRN (14:03)
[2017-11-28] MEDS ORDERED: IPRATROPIUM BROMIDE NEB SOLN 0.02% 2.5 ML VIAL INH SCH (15:00)
[2017-11-28] MEDS ORDERED: LEVALBUTEROL 1.25MG/0.5ML NEB INH SCH (15:00)
[2017-11-28] MEDS: WARFARIN SOD 3 MG TAB PO SCH (16:19)
[2017-11-28] MEDS: LORAZEPAM 0.5 MG TAB PO PRN (21:11)
[2017-11-28] MEDS: SERTRALINE HCL 50 MG TAB PO SCH (21:12)
[2017-11-29] VITALS (7 sets, daily range): BP systolic 98–124; BP diastolic 59–79; PULSE 62–96; TEMP 36.3–36.8; O2SAT 92–96
[2017-11-29 07:18] LABS: HEMATOCRIT 40.7 % (42-52); HEMOGLOBIN 12.5 g/dL (14.0-18.0); MEAN CELL VOLUME 93.1 fL (80-100); MEAN CORPUSCULAR HEMOGLOBIN 28.6 pg (25-34); MEAN CORPUSCULAR HGB CONC 30.7 g/dl (32-36); MEAN PLATELET VOLUME 8.8 fL (7.4-10.4); PLATELET COUNT 175 K/uL (130-400); RED CELL DISTRIBUTION WIDTH CV 13.4 % (11.5-14.5); RED CELL DISTRIBUTION WIDTH SD 45.5 fL (36.4-46.3); WHITE BLOOD COUNT 13.75 K/uL (4.8-10.8)
[2017-11-29 07:25] LABS: INR 2.4 (0.9-1.1)
[2017-11-29] MEDS: ANORO ELLIPTA~ORDER AWAITING ACTION SCH ×2 (07:38→16:00)
[2017-11-29 07:39] LABS: CALCIUM 8.4 mg/dl (8.5-10.1); CREATININE 0.86 mg/dl (0.60-1.40); POTASSIUM 4.4 mmol/L (3.5-5.1)
[2017-11-29] MEDS: DILTIAZEM HCL 180 MG CAPCR PO SCH (07:41)
[2017-11-29] MEDS: LACTOBACILLUS ACIDOPHILUS (FLORANEX) TAB PO SCH (07:41)
[2017-11-29] MEDS: POTASSIUM CHLORIDE 20 MEQ TABCR PO SCH (07:41)
[2017-11-29] MEDS: SOTALOL HCL 80 MG TAB PO SCH ×2 (07:42→21:00)
[2017-11-29] MEDS: NICOTINE 14 MG/24 HR TDSY TD SCH (07:42)
[2017-11-29 07:43] LABS: PHOSPHORUS 4.2 mg/dl (2.5-4.9)
[2017-11-29] MEDS ORDERED: FUROSEMIDE INJ 40 MG in SYRINGE 0 ML IV STA (09:52)
--- NOTE | 2017-11-29 15:08 | Progress Note ---
Internal Med Progress Note Date of Service: Nov 29, 2017. Provider Documentation: SUBJECTIVE: The patient was seen and examined Denies any Chest pain,palpitation Much better today Breathing is better Leg remains swollen OBJECTIVE: Vital Signs-as noted below Exam: General-No distress at rest Eyes-normal ENT-Normal Neck-Supple Lungs-Decreased breath sound bilaterally No wheezing and or crackles Heart-Regular Abdomen-Benign,no masses,bowel sound Extremities-Bilateral Legs swelling Right >>>left Neuro-AAOx3 Lab data as noted below. ASSESSMENT & PLAN: PAROXYSMAL A FIB: Rate control on sinus rhythm Was on heparin drip and Cardizem initially, that was d/c Case discussed with Cardiology dr. Pablo recommended to continue sotalol and diltiazem. Stable to discharge home from cardiology standpoint ECHO showed * Sinus rhythm was present during the echocardiogram. * The left ventricular wall motion was grossly normal on technically limited assessment. * The LV Ejection Fraction = 55-60%. * Grade I diastolic dysfunction, (abnormal relaxation pattern). * Doppler findings do not suggest pulmonary hypertension. * There is no significant valvular heart disease. * The right ventricle is normal in size and function. Remains stable No cardiac issue -rate remains controlled Severe COPD with ACUTE ON CHRONIC RESPIRATORY FAILURE: with Hypoxemia and hypercapnia CXR showed no infiltrate, no pulmonary congestion Blood cx negative On Xopenex/Atrovent nebs q4 and changed to PRN from 11/28/16 Levaquin discontinued Continue prednisone and tapering Pulmonology consulted, appreciate recommendations Received Acetazolamide for 3 days as per Pulmonary Continue BIPAP at night and whenever pt sleeps Stable and back to baseline ABNORMAL UA UA POSITIVE urine culture negative Afebrile and no leukocytosis CHRONIC LYMPHEDEMA: of B/L LE Left Leg is worse than the right Chronic Lymphedema and venous stasis Was on Lasix 40mg, that has been held due to elevated Bicarb LE US negative for DVT Wound care consulted Diuretic PRN Will try Lasix for a day or two Elevate the legs -slightly improved DEPRESSION/ANXIETY: On Zoloft Continue Ativan prn anxiety DVT px on Coumadin CODE STATUS FULL CODE DISPOSITION Waiting for placement to discharge Consultants: Cardio Wound care DISPOSITION Awaited to go to LTAC facility Vital Signs: Date Time Temp Pulse Resp B/P (MAP) Pulse Ox O2 Delivery O2 Flow Rate FiO2 11/29/17 11:00 36.4 79 20 102/68 (79) 94 Room Air 11/29/17 07:30 Nasal Cannula 2.0 BiPAP 11/29/17 07:08 36.3 74 18 118/75 (89) 96 Room Air 11/29/17 04:00 Nasal Cannula BiPAP 11/29/17 03:47 36.4 62 20 112/74 (87) 95 BiPAP 11/29/17 00:00 Nasal Cannula BiPAP 11/28/17 23:47 36.6 70 18 116/76 (89) 97 BiPAP 11/28/17 22:42 77 96 2.0 11/28/17 22:42 77 18 96 BiPAP/CPAP 2.0 11/28/17 20:07 36.7 85 20 110/66 (81) 94 3.0 11/28/17 20:00 Nasal Cannula 2.0 11/28/17 16:00 Nasal Cannula 2.0 11/28/17 15:24 36.4 79 20 105/68 (80) 97 Lab Results: Results Past 24 Hours Test 11/29/17 07:08 Range/Units White Blood Count 13.75 4.8-10.8 K/uL Red Blood Count 4.37 4.7-6.1 M/uL Hemoglobin 12.5 14.0-18.0 g/dL Hematocrit 40.7 42-52 % Mean Corpuscular Volume 93.1 80-100 fL Mean Corpuscular Hemoglobin 28.6 25-34 pg Mean Corpuscular Hemoglobin Concent 30.7 32-36 g/dl RDW Standard Deviation 45.5 36.4-46.3 fL RDW Coefficient of Variation 13.4 11.5-14.5 % Platelet Count 175 130-400 K/uL Mean Platelet Volume 8.8 7.4-10.4 fL Prothrombin Time 24.9 9.0-12.0 SECONDS Prothromb Time International Ratio 2.4 0.9-1.1 Sodium Level 140 136-145 mmol/L Potassium Level 4.4 3.5-5.1 mmol/L Chloride Level 101 98-107 mmol/L Carbon Dioxide Level 35 21-32 mmol/L Anion Gap 4.0 3-11 mmol/L Blood Urea Nitrogen 20 7-18 mg/dl Creatinine 0.86 0.60-1.40 mg/dl Est Creatinine Clear Calc Drug Dose 108.0 ml/min Estimated GFR () 107.7 Estimated GFR (Non- 92.9 BUN/Creatinine Ratio 22.9 10-20 Random Glucose 84 70-99 mg/dl Calcium Level 8.4 8.5-10.1 mg/dl Phosphorus Level 4.2 2.5-4.9 mg/dl Magnesium Level 2.2 1.8-2.4 mg/dl
[2017-11-29] MEDS: WARFARIN SOD 3 MG TAB PO SCH (16:01)
[2017-11-29] MEDS: SERTRALINE HCL 50 MG TAB PO SCH (21:15)
[2017-11-29] MEDS: LORAZEPAM 0.5 MG TAB PO PRN (21:15)
[2017-11-30] VITALS (9 sets, daily range): BP systolic 93–117; BP diastolic 59–78; PULSE 70–95; TEMP 36.1–36.7; O2SAT 92–98
[2017-11-30] MEDS: ANORO ELLIPTA~ORDER AWAITING ACTION SCH ×4 (08:00→23:25)
[2017-11-30] MEDS: POTASSIUM CHLORIDE 20 MEQ TABCR PO SCH (08:11)
[2017-11-30] MEDS: LACTOBACILLUS ACIDOPHILUS (FLORANEX) TAB PO SCH (08:11)
[2017-11-30] MEDS: SOTALOL HCL 80 MG TAB PO SCH ×2 (08:11→21:00)
[2017-11-30] MEDS: DILTIAZEM HCL 180 MG CAPCR PO SCH (08:11)
[2017-11-30] MEDS: NICOTINE 14 MG/24 HR TDSY TD SCH (08:12)
[2017-11-30 09:16] LABS: CALCIUM 8.9 mg/dl (8.5-10.1); CREATININE 0.84 mg/dl (0.60-1.40)
[2017-11-30] MEDS ORDERED: FUROSEMIDE INJ 40 MG in SYRINGE 0 ML IV ONE (12:45)
--- NOTE | 2017-11-30 14:40 | Progress Note ---
Internal Med Progress Note Date of Service: Nov 30, 2017. Provider Documentation: SUBJECTIVE: The patient was seen and examined Denies any Chest pain,palpitation Much better today Breathing is better Right Leg improves a bit OBJECTIVE: Vital Signs-as noted below Exam: General-No distress at rest Eyes-normal ENT-Normal Neck-Supple Lungs-Decreased breath sound bilaterally No wheezing and or crackles Heart-Regular Abdomen-Benign,no masses,bowel sound Extremities-Bilateral Legs swelling Right >>>left Neuro-AAOx3 Lab data as noted below. ASSESSMENT & PLAN: PAROXYSMAL A FIB: Rate control on sinus rhythm Was on heparin drip and Cardizem initially, that was d/c Case discussed with Cardiology dr. Pablo recommended to continue sotalol and diltiazem. Stable to discharge home from cardiology standpoint ECHO showed * Sinus rhythm was present during the echocardiogram. * The left ventricular wall motion was grossly normal on technically limited assessment. * The LV Ejection Fraction = 55-60%. * Grade I diastolic dysfunction, (abnormal relaxation pattern). * Doppler findings do not suggest pulmonary hypertension. * There is no significant valvular heart disease. * The right ventricle is normal in size and function. Remains stable No cardiac issue -rate remains controlled CHRONIC LYMPHEDEMA: of B/L LE Left Leg is worse than the right Chronic Lymphedema and venous stasis Was on Lasix 40mg, that has been held due to elevated Bicarb LE US negative for DVT Wound care consulted Diuretic PRN Will try Lasix for a day or two Elevate the legs -slightly improved Will try more Lasix today Severe COPD with ACUTE ON CHRONIC RESPIRATORY FAILURE: with Hypoxemia and hypercapnia CXR showed no infiltrate, no pulmonary congestion Blood cx negative On Xopenex/Atrovent nebs q4 and changed to PRN from 11/28/16 Levaquin discontinued Continue prednisone and tapering Pulmonology consulted, appreciate recommendations Received Acetazolamide for 3 days as per Pulmonary Continue BIPAP at night and whenever pt sleeps Stable and back to baseline [facility]waiting [facility] ABNORMAL UA UA POSITIVE urine culture negative Afebrile and no leukocytosis DEPRESSION/ANXIETY: On Zoloft Continue Ativan prn anxiety DVT px on Coumadin CODE STATUS FULL CODE DISPOSITION Waiting for placement to discharge Consultants: Cardio Wound care DISPOSITION Awaited to go to LTAC facility Vital Signs: Date Time Temp Pulse Resp B/P (MAP) Pulse Ox O2 Delivery O2 Flow Rate FiO2 11/30/17 12:00 Nasal Cannula 2.0 11/30/17 11:58 36.5 74 22 93/59 (70) 98 2.0 11/30/17 08:00 Nasal Cannula 2.0 11/30/17 07:38 36.1 75 18 105/71 (82) 92 BiPAP 11/30/17 07:22 94 3.0 11/30/17 04:00 36.3 95 18 114/75 (88) 98 CPAP 3.0 11/30/17 04:00 Nasal Cannula 2.0 BiPAP 11/30/17 00:00 36.5 70 20 112/78 (89) 97 CPAP 11/30/17 00:00 Nasal Cannula 2.0 BiPAP 11/29/17 22:28 93 3.0 11/29/17 21:14 98/59 (72) 11/29/17 20:10 36.3 96 18 123/78 (93) 92 Room Air 11/29/17 20:00 Nasal Cannula 2.0 BiPAP 11/29/17 16:00 Nasal Cannula 2.0 BiPAP 11/29/17 15:50 36.8 69 18 124/79 (94) 92 Nasal Cannula 1.5 Lab Results: Results Past 24 Hours Test 11/30/17 08:03 Range/Units Sodium Level 139 136-145 mmol/L Potassium Level 4.0 3.5-5.1 mmol/L Chloride Level 98 98-107 mmol/L Carbon Dioxide Level 38 21-32 mmol/L Anion Gap 3.0 3-11 mmol/L Blood Urea Nitrogen 21 7-18 mg/dl Creatinine 0.84 0.60-1.40 mg/dl Est Creatinine Clear Calc Drug Dose 115.9 ml/min Estimated GFR () 108.8 Estimated GFR (Non- 93.8 BUN/Creatinine Ratio 24.9 10-20 Random Glucose 83 70-99 mg/dl Calcium Level 8.9 8.5-10.1 mg/dl Magnesium Level 2.4 1.8-2.4 mg/dl Albumin 2.6 3.4-5.0 gm/dl
[2017-11-30] MEDS: WARFARIN SOD 3 MG TAB PO SCH (16:29)
[2017-11-30] MEDS: LORAZEPAM 0.5 MG TAB PO PRN (21:05)
[2017-11-30] MEDS: SERTRALINE HCL 50 MG TAB PO SCH (21:06)
[2017-11-30] MEDS: IPRATROPIUM BROMIDE NEB SOLN 0.02% 2.5 ML VIAL INH PRN (22:00)
[2017-12-01] VITALS (9 sets, daily range): BP systolic 89–116; BP diastolic 54–73; PULSE 74–88; TEMP 36–36.7; O2SAT 94–99
[2017-12-01] MEDS: POTASSIUM CHLORIDE 20 MEQ TABCR PO SCH (07:53)
[2017-12-01] MEDS: SOTALOL HCL 80 MG TAB PO SCH ×2 (07:53→20:43)
[2017-12-01] MEDS: DILTIAZEM HCL 180 MG CAPCR PO SCH (07:54)
[2017-12-01] MEDS: LACTOBACILLUS ACIDOPHILUS (FLORANEX) TAB PO SCH (07:54)
[2017-12-01] MEDS: NICOTINE 14 MG/24 HR TDSY TD SCH (09:00)
[2017-12-01] MEDS: ANORO ELLIPTA~ORDER AWAITING ACTION SCH ×3 (09:04→20:43)
[2017-12-01] MEDS ORDERED: FUROSEMIDE INJ 40 MG in SYRINGE 0 ML IV SCH (14:00)
--- NOTE | 2017-12-01 14:44 | Progress Note ---
Internal Med Progress Note Date of Service: Dec 01, 2017. Provider Documentation: SUBJECTIVE: The patient was seen and examined Denies any Chest pain,palpitation Much better today Breathing is better Right Leg improves a bit Denied from LTAC placement He is back to his baseline and with CPAP he will be fine at home and the patient agrees OBJECTIVE: Vital Signs-as noted below Exam: General-No distress at rest Eyes-normal ENT-Normal Neck-Supple Lungs-Decreased breath sound bilaterally No wheezing and or crackles Heart-Regular Abdomen-Benign,no masses,bowel sound Extremities-Bilateral Legs swelling Right >>>left Right leg is improving gradually Neuro-AAOx3 Lab data as noted below. ASSESSMENT & PLAN: PAROXYSMAL A FIB: Rate control on sinus rhythm Was on heparin drip and Cardizem initially, that was d/c Case discussed with Cardiology dr. Pablo recommended to continue sotalol and diltiazem. Stable to discharge home from cardiology standpoint ECHO showed * Sinus rhythm was present during the echocardiogram. * The left ventricular wall motion was grossly normal on technically limited assessment. * The LV Ejection Fraction = 55-60%. * Grade I diastolic dysfunction, (abnormal relaxation pattern). * Doppler findings do not suggest pulmonary hypertension. * There is no significant valvular heart disease. * The right ventricle is normal in size and function. Remains stable No cardiac issue -rate remains controlled CHRONIC LYMPHEDEMA: of B/L LE Left Leg is worse than the right Chronic Lymphedema and venous stasis Was on Lasix 40mg, that has been held due to elevated Bicarb LE US negative for DVT Wound care consulted Diuretic PRN Will try Lasix for a day or two Elevate the legs -slightly improved Will try more Lasix today Severe COPD with ACUTE ON CHRONIC RESPIRATORY FAILURE: with Hypoxemia and hypercapnia CXR showed no infiltrate, no pulmonary congestion Blood cx negative On Xopenex/Atrovent nebs q4 and changed to PRN from 11/28/16 Levaquin discontinued Continue prednisone and tapering Pulmonology consulted, appreciate recommendations Received Acetazolamide for 3 days as per Pulmonary Continue BIPAP at night and whenever pt sleeps Stable and back to baseline Denied from [facility] Will try to discharge home with CPAP ABNORMAL UA UA POSITIVE urine culture negative Afebrile and no leukocytosis DEPRESSION/ANXIETY: On Zoloft Continue Ativan prn anxiety DVT px on Coumadin CODE STATUS FULL CODE DISPOSITION Waiting for placement to discharge Consultants: Cardio Wound care DISPOSITION Likely to go home with CPAP Vital Signs: Date Time Temp Pulse Resp B/P (MAP) Pulse Ox O2 Delivery O2 Flow Rate FiO2 12/01/17 12:00 Nasal Cannula 3.0 BiPAP 12/01/17 11:36 36.7 74 20 89/54 (66) 98 Nasal Cannula 2.0 12/01/17 09:00 Nasal Cannula 3.0 BiPAP 12/01/17 07:38 36.0 77 22 110/73 (85) 95 BiPAP 12/01/17 04:27 36.3 77 18 94/60 (71) 98 CPAP 12/01/17 04:00 BiPAP 2.0 12/01/17 00:22 36.4 78 20 103/71 (82) 94 BiPAP 12/01/17 00:00 BiPAP 3.0 11/30/17 22:02 76 98 2.0 11/30/17 22:01 74 20 98 BiPAP/CPAP 2.0 11/30/17 20:00 Nasal Cannula 2.0 BiPAP 11/30/17 19:18 36.7 91 18 117/77 (90) 97 Nasal Cannula 2.0 11/30/17 16:00 Nasal Cannula 2.0 BiPAP 11/30/17 15:45 36.5 75 16 100/66 (77) 96 Nasal Cannula 2.0
[2017-12-01] MEDS: WARFARIN SOD 3 MG TAB PO SCH (15:37)
[2017-12-01] MEDS: SERTRALINE HCL 50 MG TAB PO SCH (20:42)
[2017-12-01] MEDS: LORAZEPAM 0.5 MG TAB PO PRN (20:47)
[2017-12-02] VITALS (8 sets, daily range): BP systolic 94–114; BP diastolic 61–79; PULSE 73–91; TEMP 36.2–36.8; O2SAT 93–100
[2017-12-02] MEDS: ANORO ELLIPTA~ORDER AWAITING ACTION SCH ×3 (08:00→22:41)
[2017-12-02] MEDS: SOTALOL HCL 80 MG TAB PO SCH ×2 (08:13→19:28)
[2017-12-02] MEDS: POTASSIUM CHLORIDE 20 MEQ TABCR PO SCH (08:13)
[2017-12-02] MEDS: DILTIAZEM HCL 180 MG CAPCR PO SCH (08:13)
[2017-12-02] MEDS: LACTOBACILLUS ACIDOPHILUS (FLORANEX) TAB PO SCH (08:28)
[2017-12-02] MEDS: NICOTINE 14 MG/24 HR TDSY TD SCH (08:37)
--- NOTE | 2017-12-02 15:21 | Progress Note ---
Internal Med Progress Note Date of Service: Dec 02, 2017. Provider Documentation: SUBJECTIVE: The patient was seen and examined Denies any Chest pain,palpitation Much better today But a little drowsy today OBJECTIVE: Vital Signs-as noted below Exam: General-No distress at rest SOB on minimal activity Eyes-normal ENT-Normal Neck-Supple Lungs-Decreased breath sound bilaterally No wheezing and or crackles Heart-Regular Abdomen-Benign,no masses,bowel sound Extremities-Bilateral Legs swelling Right >>>left Right leg is improving gradually Neuro-AAOx3 Lab data as noted below. ASSESSMENT & PLAN: PAROXYSMAL A FIB: Rate control on sinus rhythm Was on heparin drip and Cardizem initially, that was d/c Case discussed with Cardiology dr. Pablo recommended to continue sotalol and diltiazem. Stable to discharge home from cardiology standpoint ECHO showed * Sinus rhythm was present during the echocardiogram. * The left ventricular wall motion was grossly normal on technically limited assessment. * The LV Ejection Fraction = 55-60%. * Grade I diastolic dysfunction, (abnormal relaxation pattern). * Doppler findings do not suggest pulmonary hypertension. * There is no significant valvular heart disease. * The right ventricle is normal in size and function. Remains stable No cardiac issue -rate remains controlled BP has been on the lower side Hold Lasix for today CHRONIC LYMPHEDEMA: of B/L LE Left Leg is worse than the right Chronic Lymphedema and venous stasis Was on Lasix 40mg, that has been held due to elevated Bicarb LE US negative for DVT Wound care consulted Diuretic PRN Will try Lasix for a day or two Elevate the legs -slightly improved [place] PRP tomorrow Severe COPD with ACUTE ON CHRONIC RESPIRATORY FAILURE: with Hypoxemia and hypercapnia CXR showed no infiltrate, no pulmonary congestion Blood cx negative On Xopenex/Atrovent nebs q4 and changed to PRN from 11/28/16 Levaquin discontinued Continue prednisone and tapering Pulmonology consulted, appreciate recommendations Received Acetazolamide for 3 days as per Pulmonary Continue BIPAP at night and whenever pt sleeps Stable and back to baseline Denied from [facility] Will try to discharge home with BIPAP at home ABNORMAL UA UA POSITIVE urine culture negative Afebrile and no leukocytosis DEPRESSION/ANXIETY: On Zoloft Continue Ativan prn anxiety DVT px on Coumadin CODE STATUS FULL CODE DISPOSITION Waiting for placement to discharge Consultants: Cardio Wound care DISPOSITION Likely to go home with BIPAP tomorrow Vital Signs: Date Time Temp Pulse Resp B/P (MAP) Pulse Ox O2 Delivery O2 Flow Rate FiO2 12/02/17 12:00 Nasal Cannula 2.0 BiPAP 12/02/17 11:30 36.8 81 16 94/61 (72) 97 2.0 12/02/17 08:00 Nasal Cannula 2.0 BiPAP 12/02/17 07:42 36.8 91 16 109/71 (84) 100 2.0 12/02/17 04:22 36.2 90 20 114/79 (91) 93 BiPAP 12/02/17 04:00 Nasal Cannula 2.0 12/02/17 00:00 Nasal Cannula 2.0 12/01/17 23:25 36.6 78 20 116/73 (87) 95 BiPAP 12/01/17 20:03 36.6 88 18 98/66 (77) 99 Nasal Cannula 2.0 12/01/17 20:00 97 Nasal Cannula 2.0 12/01/17 16:00 97 Nasal Cannula 2.0 12/01/17 15:20 36.7 81 20 97/62 (74) 97 3.0
[2017-12-02] MEDS: WARFARIN SOD 3 MG TAB PO SCH (16:04)
[2017-12-02] MEDS: SERTRALINE HCL 50 MG TAB PO SCH (19:27)
[2017-12-02] MEDS: LORAZEPAM 0.5 MG TAB PO PRN (19:30)
[2017-12-02] MEDS: IPRATROPIUM BROMIDE NEB SOLN 0.02% 2.5 ML VIAL INH PRN (23:33)
[2017-12-03] VITALS (7 sets, daily range): BP systolic 94–113; BP diastolic 61–79; PULSE 59–88; TEMP 36.1–36.9; O2SAT 92–98
[2017-12-03 06:45] LABS: HEMATOCRIT 41.3 % (42-52); HEMOGLOBIN 12.7 g/dL (14.0-18.0); MEAN CELL VOLUME 94.7 fL (80-100); MEAN CORPUSCULAR HEMOGLOBIN 29.1 pg (25-34); MEAN CORPUSCULAR HGB CONC 30.8 g/dl (32-36); MEAN PLATELET VOLUME 8.9 fL (7.4-10.4); PLATELET COUNT 159 K/uL (130-400); RED CELL DISTRIBUTION WIDTH CV 13.2 % (11.5-14.5); RED CELL DISTRIBUTION WIDTH SD 45.7 fL (36.4-46.3); WHITE BLOOD COUNT 11.22 K/uL (4.8-10.8)
[2017-12-03 07:37] LABS: CALCIUM 8.6 mg/dl (8.5-10.1); CREATININE 0.87 mg/dl (0.60-1.40); PHOSPHORUS 2.8 mg/dl (2.5-4.9); POTASSIUM 4.4 mmol/L (3.5-5.1)
[2017-12-03] MEDS: POTASSIUM CHLORIDE 20 MEQ TABCR PO SCH (08:14)
[2017-12-03] MEDS: LACTOBACILLUS ACIDOPHILUS (FLORANEX) TAB PO SCH (08:14)
[2017-12-03] MEDS: SOTALOL HCL 80 MG TAB PO SCH ×2 (08:15→19:40)
[2017-12-03] MEDS: DILTIAZEM HCL 180 MG CAPCR PO SCH (08:15)
[2017-12-03] MEDS: ANORO ELLIPTA~ORDER AWAITING ACTION SCH ×2 (08:45→16:00)
[2017-12-03] MEDS: NICOTINE 14 MG/24 HR TDSY TD SCH (08:46)
--- NOTE | 2017-12-03 13:26 | Progress Note ---
Internal Med Progress Note Date of Service: Dec 03, 2017. Provider Documentation: SUBJECTIVE: The patient was seen and examined Denies any Chest pain,palpitation Much better today But a little drowsy today ,CO2 high at 43 BIPAP applied -check CO2 at 2 PM of improving will be discharged OBJECTIVE: Vital Signs-as noted below Exam: General-Minimal SOB at rest SOB on minimal activity Eyes-normal ENT-Normal Neck-Supple Lungs-Decreased breath sound bilaterally No wheezing and or crackles Heart-Regular Abdomen-Benign,no masses,bowel sound Extremities-Bilateral Legs swelling Right >>>left Right leg is improving gradually Neuro-AAOx3 generally very weak and Lethargic Lab data as noted below. ASSESSMENT & PLAN: PAROXYSMAL A FIB: Rate control on sinus rhythm Was on heparin drip and Cardizem initially, that was d/c Case discussed with Cardiology dr. Pablo recommended to continue sotalol and diltiazem. Stable to discharge home from cardiology standpoint ECHO showed * Sinus rhythm was present during the echocardiogram. * The left ventricular wall motion was grossly normal on technically limited assessment. * The LV Ejection Fraction = 55-60%. * Grade I diastolic dysfunction, (abnormal relaxation pattern). * Doppler findings do not suggest pulmonary hypertension. * There is no significant valvular heart disease. * The right ventricle is normal in size and function. Remains stable No cardiac issue -rate remains controlled BP has been on the lower side Hold Lasix for today If feels well and CO2 is not worsening ,will discharge home CHRONIC LYMPHEDEMA: of B/L LE Left Leg is worse than the right Chronic Lymphedema and venous stasis Was on Lasix 40mg, that has been held due to elevated Bicarb LE US negative for DVT Wound care consulted Diuretic PRN on discharge Will try Lasix for a day or two Elevate the legs -slightly improved Check PRP tomorrow-CO2 is high Severe COPD with ACUTE ON CHRONIC RESPIRATORY FAILURE: with Hypoxemia and hypercapnia CXR showed no infiltrate, no pulmonary congestion Blood cx negative On Xopenex/Atrovent nebs q4 and changed to PRN from 11/28/16 Levaquin discontinued Continue prednisone and tapering Pulmonology consulted, appreciate recommendations Received Acetazolamide for 3 days as per Pulmonary Continue BIPAP at night and whenever pt sleeps Stable and back to baseline Denied from [facility] Will try to discharge home with BIPAP at home Will discharge home today/tomorrow CO2 improved Can be discharged today ABNORMAL UA UA POSITIVE urine culture negative Afebrile and no leukocytosis DEPRESSION/ANXIETY: On Zoloft Continue Ativan prn anxiety DVT px on Coumadin CODE STATUS FULL CODE DISPOSITION Waiting for placement to discharge Consultants: Cardio Wound care DISPOSITION Likely to go home with BIPAP today /tomorrow Vital Signs: Date Time Temp Pulse Resp B/P (MAP) Pulse Ox O2 Delivery O2 Flow Rate FiO2 12/03/17 14:18 36.6 74 22 94/66 (75) 97 2.0 12/03/17 12:00 Nasal Cannula 2.0 BiPAP 12/03/17 11:29 36.4 83 20 94/61 (72) 92 BiPAP 12/03/17 08:30 Nasal Cannula 2.0 BiPAP 12/03/17 07:01 36.1 59 19 113/79 (90) 96 CPAP 12/03/17 04:54 36.9 71 21 99/64 (76) 94 CPAP 12/03/17 04:00 Nasal Cannula 3.0 BiPAP 12/03/17 00:00 Nasal Cannula 2.0 BiPAP 12/02/17 23:49 36.7 73 18 96/61 (73) 97 CPAP 2.0 12/02/17 23:34 98 2.0 12/02/17 23:33 82 18 97 BiPAP/CPAP 2.0 12/02/17 20:00 Nasal Cannula 2.0 BiPAP 12/02/17 19:21 36.8 87 18 107/66 (80) 97 Nasal Cannula 2.0 12/02/17 16:00 Nasal Cannula 2.0 BiPAP 12/02/17 15:21 36.7 75 16 99/65 (76) 94 2.0 Lab Results: Results Past 24 Hours Test 12/03/17 06:07 12/03/17 14:14 Range/Units White Blood Count 11.22 4.8-10.8 K/uL Red Blood Count 4.36 4.7-6.1 M/uL Hemoglobin 12.7 14.0-18.0 g/dL Hematocrit 41.3 42-52 % Mean Corpuscular Volume 94.7 80-100 fL Mean Corpuscular Hemoglobin 29.1 25-34 pg Mean Corpuscular Hemoglobin Concent 30.8 32-36 g/dl RDW Standard Deviation 45.7 36.4-46.3 fL RDW Coefficient of Variation 13.2 11.5-14.5 % Platelet Count 159 130-400 K/uL Mean Platelet Volume 8.9 7.4-10.4 fL Sodium Level 140 138 136-145 mmol/L Potassium Level 4.4 4.3 3.5-5.1 mmol/L Chloride Level 97 98 98-107 mmol/L Carbon Dioxide Level 41 36 21-32 mmol/L Anion Gap 2.0 4.0 3-11 mmol/L Blood Urea Nitrogen 23 23 7-18 mg/dl Creatinine 0.87 0.89 0.60-1.40 mg/dl Est Creatinine Clear Calc Drug Dose 111.8 109.3 ml/min Estimated GFR () 107.2 106.2 Estimated GFR (Non- 92.5 91.6 BUN/Creatinine Ratio 26.1 25.6 10-20 Random Glucose 86 171 70-99 mg/dl Calcium Level 8.6 8.6 8.5-10.1 mg/dl Phosphorus Level 2.8 2.5-4.9 mg/dl Magnesium Level 2.3 2.1 1.8-2.4 mg/dl
[2017-12-03 15:05] LABS: CALCIUM 8.6 mg/dl (8.5-10.1); CREATININE 0.89 mg/dl (0.60-1.40); POTASSIUM 4.3 mmol/L (3.5-5.1)
[2017-12-03] MEDS: WARFARIN SOD 3 MG TAB PO SCH (16:52)
[2017-12-03] MEDS: LORAZEPAM 0.5 MG TAB PO PRN (19:41)
[2017-12-03] MEDS: SERTRALINE HCL 50 MG TAB PO SCH (19:41)
[2017-12-03] MEDS: IPRATROPIUM BROMIDE NEB SOLN 0.02% 2.5 ML VIAL INH PRN (20:51)
[2017-12-04] VITALS (8 sets, daily range): BP systolic 99–119; BP diastolic 67–82; PULSE 79–148; TEMP 36.4–36.8; O2SAT 90–99
[2017-12-04] MEDS: ANORO ELLIPTA~ORDER AWAITING ACTION SCH ×4 (08:00→23:31)
[2017-12-04] MEDS: POTASSIUM CHLORIDE 20 MEQ TABCR PO SCH (08:06)
[2017-12-04] MEDS: SOTALOL HCL 80 MG TAB PO SCH ×2 (08:07→20:31)
[2017-12-04] MEDS: LACTOBACILLUS ACIDOPHILUS (FLORANEX) TAB PO SCH (08:07)
[2017-12-04] MEDS: DILTIAZEM HCL 180 MG CAPCR PO SCH (08:07)
[2017-12-04] MEDS: NICOTINE 14 MG/24 HR TDSY TD SCH (08:21)
[2017-12-04] MEDS ORDERED: NURSING VERBAL MED ORDER ONE (10:15)
[2017-12-04] MEDS ORDERED: MICONAZOLE NITRATE POWDER 43 GM EXT PRN (10:30)
--- NOTE | 2017-12-04 13:14 | Progress Note ---
Internal Med Progress Note Date of Service: Dec 04, 2017. Provider Documentation: SUBJECTIVE: The patient was seen and examined Denies any Chest pain,palpitation Much better today No more drowsiness and feels better OBJECTIVE: Vital Signs-as noted below Exam: General-Minimal SOB at rest SOB on minimal activity Eyes-normal ENT-Normal Neck-Supple Lungs-Severely Decreased breath sound bilaterally No wheezing and or crackles Heart-Regular Abdomen-Benign,no masses,bowel sound Extremities-Bilateral Legs swelling Right >>>left Right leg is improving gradually Neuro-AAOx3 generally very weak and Lethargic Lab data as noted below. ASSESSMENT & PLAN: PAROXYSMAL A FIB: Rate control on sinus rhythm Was on heparin drip and Cardizem initially, that was d/c Case discussed with Cardiology dr. Pablo recommended to continue sotalol and diltiazem. Stable to discharge home from cardiology standpoint ECHO showed * Sinus rhythm was present during the echocardiogram. * The left ventricular wall motion was grossly normal on technically limited assessment. * The LV Ejection Fraction = 55-60%. * Grade I diastolic dysfunction, (abnormal relaxation pattern). * Doppler findings do not suggest pulmonary hypertension. * There is no significant valvular heart disease. * The right ventricle is normal in size and function. Remains stable No cardiac issue -rate remains controlled BP has been on the lower side Hold Lasix for today CO2 is better and the patient does not have any more Drowsiness Likely to go home today /tomorrow CHRONIC LYMPHEDEMA: of B/L LE Left Leg is worse than the right Chronic Lymphedema and venous stasis Was on Lasix 40mg, that has been held due to elevated Bicarb LE US negative for DVT Wound care consulted Diuretic PRN on discharge Will try Lasix for a day or two Elevate the legs -slightly improved OP referral to Lymphedema clinic Severe COPD with ACUTE ON CHRONIC RESPIRATORY FAILURE: with Hypoxemia and hypercapnia CXR showed no infiltrate, no pulmonary congestion Blood cx negative On Xopenex/Atrovent nebs q4 and changed to PRN from 11/28/16 Levaquin discontinued Continue prednisone and tapering Pulmonology consulted, appreciate recommendations Received Acetazolamide for 3 days as per Pulmonary Continue BIPAP at night and whenever pt sleeps Stable and back to baseline Denied from [facility] Will try to discharge home with BIPAP at home Will discharge home today/tomorrow CO2 improved Can be discharged today on BIPAP ABNORMAL UA UA POSITIVE urine culture negative Afebrile and no leukocytosis DEPRESSION/ANXIETY: On Zoloft Continue Ativan prn anxiety DVT px on Coumadin CODE STATUS FULL CODE DISPOSITION Waiting for placement to discharge Consultants: Cardio Wound care DISPOSITION Likely to go home with BIPAP today /tomorrow Vital Signs: Date Time Temp Pulse Resp B/P (MAP) Pulse Ox O2 Delivery O2 Flow Rate FiO2 12/04/17 12:00 Nasal Cannula 2.0 BiPAP 12/04/17 11:26 36.5 100 22 103/68 (80) 98 Nasal Cannula 2.0 12/04/17 08:00 Nasal Cannula 2.0 BiPAP 12/04/17 06:57 36.6 87 20 119/82 (94) 96 CPAP 2.0 12/04/17 06:48 36.6 87 20 119/82 (94) 96 CPAP 2.0 12/04/17 04:44 36.6 79 21 116/80 (92) 90 CPAP 2.0 12/04/17 04:00 Nasal Cannula 2.0 BiPAP 12/04/17 00:00 Nasal Cannula 2.0 BiPAP 12/03/17 22:39 36.6 62 18 106/75 (85) 97 CPAP 12/03/17 20:51 88 18 96 BiPAP/CPAP 2.0 12/03/17 20:51 96 2.0 12/03/17 20:00 Nasal Cannula 2.0 BiPAP 12/03/17 18:50 36.7 84 18 97/64 (75) 98 Nasal Cannula 2.0 12/03/17 16:00 Nasal Cannula 2.0 BiPAP 12/03/17 14:18 36.6 74 22 94/66 (75) 97 2.0 Lab Results: Results Past 24 Hours Test 12/03/17 14:14 Range/Units Sodium Level 138 136-145 mmol/L Potassium Level 4.3 3.5-5.1 mmol/L Chloride Level 98 98-107 mmol/L Carbon Dioxide Level 36 21-32 mmol/L Anion Gap 4.0 3-11 mmol/L Blood Urea Nitrogen 23 7-18 mg/dl Creatinine 0.89 0.60-1.40 mg/dl Est Creatinine Clear Calc Drug Dose 109.3 ml/min Estimated GFR () 106.2 Estimated GFR (Non- 91.6 BUN/Creatinine Ratio 25.6 10-20 Random Glucose 171 70-99 mg/dl Calcium Level 8.6 8.5-10.1 mg/dl Magnesium Level 2.1 1.8-2.4 mg/dl
[2017-12-04 16:07] LABS: INR 1.6 (0.9-1.1)
[2017-12-04] MEDS ORDERED: FUROSEMIDE 40 MG TAB PO PRN (16:15)
[2017-12-04] MEDS ORDERED: FUROSEMIDE 40 MG TAB PO ONE (16:15)
[2017-12-04] MEDS ORDERED: POTASSIUM CHLORIDE 10 MEQ TABCR PO PRN (16:15)
[2017-12-04] MEDS ORDERED: WARFARIN SOD 5 MG TAB PO SCH (16:23)
[2017-12-04] MEDS ORDERED: WARFARIN SOD 5 MG TAB PO ONE (16:30)
[2017-12-04] MEDS: SERTRALINE HCL 50 MG TAB PO SCH (20:32)
[2017-12-04] MEDS: LORAZEPAM 0.5 MG TAB PO PRN (20:33)
[2017-12-05 04:42] VITALS: BP 98/69; PULSE 60; TEMP 36.7; O2SAT 96
[2017-12-05 06:35] LABS: HEMOGLOBIN 13.4 g/dL (14.0-18.0); MEAN CELL VOLUME 94.6 fL (80-100); MEAN CORPUSCULAR HEMOGLOBIN 28.8 pg (25-34); MEAN CORPUSCULAR HGB CONC 30.5 g/dl (32-36); MEAN PLATELET VOLUME 8.8 fL (7.4-10.4); PLATELET COUNT 148 K/uL (130-400); RED CELL DISTRIBUTION WIDTH CV 13.4 % (11.5-14.5); RED CELL DISTRIBUTION WIDTH SD 46.2 fL (36.4-46.3)
[2017-12-05 06:39] VITALS: BP 104/75; PULSE 78; TEMP 36.4; O2SAT 99
[2017-12-05 06:45] LABS: INR 1.7 (0.9-1.1)
[2017-12-05 06:57] LABS: CREATININE 1.09 mg/dl (0.60-1.40); POTASSIUM 4.4 mmol/L (3.5-5.1)
[2017-12-05] MEDS: ANORO ELLIPTA~ORDER AWAITING ACTION SCH (07:49)
[2017-12-05] MEDS: LACTOBACILLUS ACIDOPHILUS (FLORANEX) TAB PO SCH (07:59)
[2017-12-05] MEDS: SOTALOL HCL 80 MG TAB PO SCH (07:59)
[2017-12-05] MEDS: NICOTINE 14 MG/24 HR TDSY TD SCH (08:00)
[2017-12-05] MEDS: POTASSIUM CHLORIDE 20 MEQ TABCR PO SCH (08:00)
[2017-12-05] MEDS: DILTIAZEM HCL 180 MG CAPCR PO SCH (08:00)
--- NOTE | 2017-12-05 10:16 | Progress Note ---
Internal Med Progress Note Date of Service: Dec 05, 2017. Provider Documentation: SUBJECTIVE: The patient was seen and examined Denies any Chest pain,palpitation Much better today No more drowsiness and feels better Physically and Mentally ready to go home Denies any symptoms today OBJECTIVE: Vital Signs-as noted below Exam: General-Minimal SOB at rest SOB on minimal activity Eyes-normal ENT-Normal Neck-Supple Lungs-Severely Decreased breath sound bilaterally No wheezing and or crackles Heart-Regular Abdomen-Benign,no masses,bowel sound Extremities-Bilateral Legs swelling Right >>>left .Has lymphedema on right leg Right leg is improving gradually Neuro-AAOx3 generally very weak and Lethargic Lab data as noted below. ASSESSMENT & PLAN: PAROXYSMAL A FIB: Rate control on sinus rhythm Was on heparin drip and Cardizem initially, that was d/c Case discussed with Cardiology dr. Pablo recommended to continue sotalol and diltiazem. Stable to discharge home from cardiology standpoint ECHO showed * Sinus rhythm was present during the echocardiogram. * The left ventricular wall motion was grossly normal on technically limited assessment. * The LV Ejection Fraction = 55-60%. * Grade I diastolic dysfunction, (abnormal relaxation pattern). * Doppler findings do not suggest pulmonary hypertension. * There is no significant valvular heart disease. * The right ventricle is normal in size and function. Remains stable No cardiac issue -rate remains controlled BP has been on the lower side Will start home Lasix dose Clinically improved -will discharge today Patient is agreeable CHRONIC LYMPHEDEMA: of B/L LE Left Leg is worse than the right Chronic Lymphedema and venous stasis Was on Lasix 40mg, that has been held due to elevated Bicarb LE US negative for DVT Wound care consulted Diuretic PRN on discharge Will try Lasix for a day or two-discharge on home Lasix dose Elevate the legs -slightly improved OP referral to Lymphedema clinic Severe COPD with ACUTE ON CHRONIC RESPIRATORY FAILURE: with Hypoxemia and hypercapnia CXR showed no infiltrate, no pulmonary congestion Blood cx negative On Xopenex/Atrovent nebs q4 and changed to PRN from 11/28/16 Levaquin discontinued Continue prednisone and tapering Pulmonology consulted, appreciate recommendations Received Acetazolamide for 3 days as per Pulmonary Continue BIPAP at night and whenever pt sleeps Stable and back to baseline Denied from [facility] CO2 reasonably better Advised to use more of BIPAP as needed and all the time at night Patient is agreeable -understands that breathing can be worse at any time ABNORMAL UA UA POSITIVE urine culture negative Afebrile and no leukocytosis DEPRESSION/ANXIETY: On Zoloft Continue Ativan prn anxiety DVT px on Coumadin CODE STATUS FULL CODE DISPOSITION Waiting for placement to discharge Consultants: Cardio Wound care DISPOSITION Likely to go home with BIPAP today Vital Signs: Date Time Temp Pulse Resp B/P (MAP) Pulse Ox O2 Delivery O2 Flow Rate FiO2 12/05/17 08:45 Nasal Cannula 2.0 BiPAP 12/05/17 06:39 36.4 78 18 104/75 (85) 99 BiPAP 12/05/17 04:42 36.7 60 19 98/69 (79) 96 CPAP 2.0 12/05/17 04:00 Nasal Cannula 2.0 BiPAP 12/05/17 00:00 Nasal Cannula 2.0 BiPAP 12/04/17 23:14 36.4 90 20 99/69 (79) 90 BiPAP 12/04/17 22:15 79 99 2.0 12/04/17 20:00 Nasal Cannula 2.0 BiPAP 12/04/17 19:24 36.8 84 18 99/68 (78) 97 Nasal Cannula 12/04/17 16:00 Nasal Cannula 2.0 12/04/17 15:25 36.5 148 18 102/67 (79) 91 2.0 12/04/17 12:00 Nasal Cannula 2.0 BiPAP 12/04/17 11:26 36.5 100 22 103/68 (80) 98 Nasal Cannula 2.0 Lab Results: Results Past 24 Hours Test 12/04/17 15:45 12/05/17 06:19 Range/Units Prothrombin Time 17.1 17.4 9.0-12.0 SECONDS Prothromb Time International Ratio 1.6 1.7 0.9-1.1 White Blood Count 10.80 4.8-10.8 K/uL Red Blood Count 4.65 4.7-6.1 M/uL Hemoglobin 13.4 14.0-18.0 g/dL Hematocrit 44.0 42-52 % Mean Corpuscular Volume 94.6 80-100 fL Mean Corpuscular Hemoglobin 28.8 25-34 pg Mean Corpuscular Hemoglobin Concent 30.5 32-36 g/dl RDW Standard Deviation 46.2 36.4-46.3 fL RDW Coefficient of Variation 13.4 11.5-14.5 % Platelet Count 148 130-400 K/uL Mean Platelet Volume 8.8 7.4-10.4 fL Sodium Level 138 136-145 mmol/L Potassium Level 4.4 3.5-5.1 mmol/L Chloride Level 95 98-107 mmol/L Carbon Dioxide Level 39 21-32 mmol/L Anion Gap 4.0 3-11 mmol/L Blood Urea Nitrogen 23 7-18 mg/dl Creatinine 1.09 0.60-1.40 mg/dl Est Creatinine Clear Calc Drug Dose 88.7 ml/min Estimated GFR () 83.9 Estimated GFR (Non- 72.4 BUN/Creatinine Ratio 21.5 10-20 Random Glucose 87 70-99 mg/dl Calcium Level 9.0 8.5-10.1 mg/dl Magnesium Level 2.3 1.8-2.4 mg/dl
[2017-12-05 11:22] VITALS: BP 117/73; PULSE 77; TEMP 36.2; O2SAT 96
[2017-12-05] MEDS ORDERED: NICO14DI5 TD (11:26)
[2017-12-05] MEDS ORDERED: NTRSLP4 SL (11:26)
[2017-12-05] MEDS ORDERED: CRDCD180 PO (11:26)
[2017-12-05] MEDS ORDERED: BTP80 PO (11:26)
--- NOTE | 2017-12-05 11:29 | Discharge Instructions ---
Discharge Instructions Date of Service Dec 05, 2017. Admission Reason for Admission: Copd Exacerbation, Lymphedema, Sob Discharge Discharge Diagnosis / Problem: Severe COPD-On BIPAP,AF on Sotalol,Right Leg Lymphedema Discharge Goals Goal(s): Prevent Disease Progression Activity Recommendations Activity Limitations: resume your previous activity (Avoid over exertion) . Instructions / Follow-Up Instructions / Follow-Up Dr Jiménez on 12/07/17 at 12:45 PM.Coagulation clinic notified.Will need regular Cardiology and Pulmonary follow up. Current Hospital Diet Patient's current hospital diet: Regular Diet Discharge Diet Recommended Diet: Regular Diet Fluid Restriction: 1500 ml (6 cups) Pending Studies Studies pending at discharge: no Medical Emergencies . Who to Call and When: Medical Emergencies: If at any time you feel your situation is an emergency, please call 911 immediately. . Non-Emergent Contact Non-Emergency issues call your: Primary Care Provider . Past History Medical & Surgical History: (1) Atrial fibrillation with rapid ventricular response (2) Hypoxia (3) COPD (chronic obstructive pulmonary disease) (4) History of tobacco abuse (5) Cellulitis (6) Lymphedema (7) COPD exacerbation (8) pleurodesis (9) H/O knee surgery (10) H/O colonoscopy . "Provider Documentation" section prepared by Jesus Mott. . VTE Core Measure Inpt VTE Proph given/why not?: Enoxaparin (Lovenox)SQ
[2017-12-05 11:31] VITALS: BP 117/73; PULSE 77; TEMP 36.2; O2SAT 96
[2017-12-05] MEDS ORDERED: WARF5TAB90 PO (11:35)
[2017-12-05] MEDS ORDERED: PRD10 PO (11:35)
--- NOTE | 2017-12-05 11:36 | Discharge Summary ---
Discharge Summary Date of Service Dec 05, 2017. Discharge Summary Admission Date: Nov 15, 2017 at 22:36 Discharge Date: Dec 05, 2017 Discharge Disposition: Home with services Principal Diagnosis: Severe COPD-On BIPAP,AF on Sotalol,Right Leg Lymphedema Secondary Diagnoses/Problems: Please see H&P and Hospital Progress note Consultations: Cardio, Wound care,Pulmonary Medication Reconciliation New Medications: Warfarin Sodium (Coumadin) 5 Mg Tab 5 MG PO DAILY, #30 TAB Diltiazem HCl (Diltiazem HCl ER) 180 Mg Capcr 180 MG PO QAM for 30 Days, #30 Nicotine (Nicoderm Cq 14MG Patch) 14 Mg/24 Hr Dis 1 PATCH TD QAM for 30 Days, #30 Nitroglycerin (Nitrostat) 0.4 Mg/1 Tab Subl 0.4 MG SL UD PRN for Chest Pain for 30 Days, #25 Prednisone (Prednisone) 10 Mg Tab 10 MG PO QAM for 30 Days, #35 TAB 2 po daily for 5 days and then 1 po daily continue until changed by Pulmonary Sotalol HCl (Sotalol HCl) 80 Mg Tab 80 MG PO BID for 30 Days, #60 TAB Continued Medications: Desloratadine (Desloratadine) 5 Mg Tab 5 MG PO QAM Furosemide (Lasix) 40 Mg Tab 40 MG PO DAILY PRN for Edema, TAB Home O2 Therapy (Oxygen) Gas 2 LITERS NA CONTINOUS Ipratropium-Albuterol (Combivent Respimat) 1 Aer Aer 1 PUFF INH QID PRN for Cough/SOB or Wheezing, INH Ipratropium-Albuterol (Duoneb) 3 Ml Nebu 1 TREATMENT INH TID PRN for SOB/Wheezing, INHA Lorazepam (Lorazepam) 0.5 Mg Tab 0.5 MG PO TID PRN for Anxiety/Shortness Of Breath Potassium Chloride (Potassium Chloride Er) 10 Meq Tab 10 MEQ PO DAILY PRN for If Lasix Taken, TAB Probiotic Product (Probiotic) 1 Tab Tab 1 TAB PO DAILY Sertraline HCl (Sertraline HCl) 50 Mg Tab 50 MG PO HS Umeclidinium-Vilanterol (Anoro Ellipta 62.5-25 Mcg/INH) 1 Aer Aer 1 PUFF INH QAM Discontinued Medications: Diltiazem Hcl Coated Beads (Cartia Xt) 120 Mg Cap 120 MG PO BID Doxycycline Hyclate (Vibramycin) 100 Mg Cap 100 MG PO DAILY TAKE THIS MEDICATION ONCE DAILY Admission Information HPI (per Admitting provider): Pt is 62 y/o M with PMH COPD on O2 2-3L, lymphedema, depression/anxiety presented to ER with c/o increased SOB and increased LE edema past couple of days. Pt with hx lymphedema bilateral lower extremities. Reports chronic redness , thinks area looks a little more red. Past 2 days noticed clear drainage from bilateral legs. On daily doxycycline for suppressive therapy with hx cellulitis LE in past. He hasn't used his lasix 40mg past couple of days as urinating more often. Thinks he has gained weight. Pt states SOB with few steps while wearing O2 at 3L and feels some wheezing. Reports using his nebulizer treatments 1-2 times day past 2 days (typically uses less than once a month). Reports using his ellipta. Took one prednisone 20mg yesterday from his rescue pack. Typically sleeps with 3 pillows, denies PND. Hx chronic slight cough of white sputum, denies increased cough or changes in sputum production or color. Reports receiving influenza vaccine this season. Denies fever/chills, diaphoresis, N/V/D /C, OLIVO, dizziness, syncope, vision changes, neck pain, CP, palpitations, hemoptysis, sore throat, choking, abdominal pain, paresthesias, weakness, other rashes, hematuria, dysuria. In ER pt afebrile, WBC: 11. Resp: 24 down to 20, 96% on 3L with rest, decreases to 88% on 3L with exertion. CXR: emphysema, no infiltrate. Pt given solumedrol 125mg IV, 2 duoneb treatment. Past Medical/Surgical History Medical Problems: (1) Asbestos exposure Status: Chronic (2) COPD (chronic obstructive pulmonary disease) Status: Chronic (3) History of tobacco abuse Status: Chronic (4) Pneumothorax Status: Resolved Surgical Problems: (1) H/O colonoscopy Status: Chronic (2) H/O knee surgery Status: Chronic (3) Hx of inguinal hernia repair Permanent Comment: 05/2017 - Right inguinal hernia repair - DR Yoder Status: Resolved (4) pleurodesis Status: Chronic Family History FH: cancer Lung disease Stroke Social History Smoking Status: Former Smoker (Quit 2010, smoked 1ppd x 38 years) Smokeless Tobacco Use: No Alcohol Use: 3 beers every couple months Marital Status: single Housing status: lives alone Occupational Status: disabled Allergies Coded Allergies: No Known Allergies (Unverified , 05/18/17) Home Medications Scheduled Desloratadine (Desloratadine), 5 MG PO QAM Diltiazem Hcl Coated Beads (Cartia Xt), 120 MG PO BID Doxycycline Hyclate (Vibramycin), 100 MG PO DAILY Home O2 Therapy (Oxygen), 2 LITERS NA CONTINOUS Probiotic Product (Probiotic), 1 TAB PO DAILY Sertraline HCl (Sertraline HCl), 50 MG PO HS Umeclidinium-Vilanterol (Anoro Ellipta 62.5-25 Mcg/INH), 1 PUFF INH QAM Scheduled PRN Furosemide (Lasix), 40 MG PO DAILY PRN for Edema Ipratropium-Albuterol (Combivent Respimat), 1 PUFF INH QID PRN for Cough/SOB or Wheezing Ipratropium-Albuterol (Duoneb), 1 TREATMENT INH TID PRN for SOB/Wheezing Lorazepam (Lorazepam), 0.5 MG PO TID PRN for Anxiety/Shortness Of Breath Potassium Chloride (Potassium Chloride Er), 10 MEQ PO DAILY PRN for If Lasix Taken Review of Systems Constitutional: No fever, No chills, No sweats Eyes: No eye pain, No redness, No discharge ENT: + nasal symptoms (chronic rhinorrhea, denies worsening), No unusual epistaxis, No sore throat, No trouble swallowing Respiratory: + problem reported (see HPI) Cardiovascular: + problem reported (see HPI) Abdomen: No pain, No nausea, No vomiting, No diarrhea, No constipation, No GI bleeding Musculoskeletal: + swelling (see HPI), No calf pain Genitourinary - Male: No hematuria, No dysuria, No urinary retention, No urinary incontinence Neurologic: No memory loss, No paralysis, No vertigo Endocrine: No excessive thirst Hematologic / Lymphatic: No clotting problems, No night sweats Physical Ex - H&P Physical Exam Vital Signs Date Time Temp Pulse Resp B/P (MAP) Pulse Ox O2 Delivery O2 Flow Rate FiO2 11/15/17 21:48 93 16 148/104 97 Nebulizer 8.0 11/15/17 20:47 93 16 137/88 94 Nasal Cannula 3.0 11/15/17 20:25 95 16 138/100 100 Nasal Cannula 3.0 11/15/17 19:52 Nasal Cannula 3.0 11/15/17 19:52 Nasal Cannula 3.0 11/15/17 19:43 96 11/15/17 19:23 36.6 98 24 161/91 96 Nasal Cannula 3.0 General Appearance: WD/WN, + pertinent finding (+dyspnea with prolonged talking ) Head: normocephalic, atraumatic Eyes: normal inspection, PERRL, EOMI, sclerae normal ENT: hearing grossly normal, pharynx normal, + pertinent finding (mucous membranes moist) Neck: supple, no JVD, trachea midline Respiratory/Chest: chest non-tender, no accessory muscle use, + decreased breath sounds (throughout. +expiratory wheezing noted. no rales noted) Cardiovascular: regular rate, rhythm, no murmur Abdomen/GI: normal bowel sounds, non tender, soft Extremities/Musculoskelatal: normal capillary refill, + pertinent finding ( Bilateral lower extremities with lymphedema, very dry skin, +mild erythema lower extremities, no purulent discharge noted. limited ROM extremities) Neurologic/Psych: alert, normal mood/affect, oriented x 3 Skin: normal color, warm/dry, + pertinent finding (see extremities) Diagnostics - H&P Diagnostics Laboratory Results Results Past 24 Hours Test 11/15/17 19:25 Range/Units White Blood Count 11.65 4.8-10.8 K/uL Red Blood Count 4.65 4.7-6.1 M/uL Hemoglobin 13.8 14.0-18.0 g/dL Hematocrit 44.9 42-52 % Mean Corpuscular Volume 96.6 80-100 fL Mean Corpuscular Hemoglobin 29.7 25-34 pg Mean Corpuscular Hemoglobin Concent 30.7 32-36 g/dl Platelet Count 130 130-400 K/uL Mean Platelet Volume 9.0 7.4-10.4 fL Neutrophils (%) (Auto) 87.0 % Lymphocytes (%) (Auto) 6.4 % Monocytes (%) (Auto) 6.1 % Eosinophils (%) (Auto) 0.1 % Basophils (%) (Auto) 0.1 % Neutrophils # (Auto) 10.15 1.4-6.5 K/uL Lymphocytes # (Auto) 0.74 1.2-3.4 K/uL Monocytes # (Auto) 0.71 0.11-0.59 K/uL Eosinophils # (Auto) 0.01 0-0.5 K/uL Basophils # (Auto) 0.01 0-0.2 K/uL RDW Standard Deviation 46.1 36.4-46.3 fL RDW Coefficient of Variation 13.2 11.5-14.5 % Immature Granulocyte % (Auto) 0.3 % Immature Granulocyte # (Auto) 0.03 0.00-0.02 K/uL Sodium Level 138 136-145 mmol/L Potassium Level 4.1 3.5-5.1 mmol/L Chloride Level 95 98-107 mmol/L Carbon Dioxide Level 39 21-32 mmol/L Anion Gap 4.0 3-11 mmol/L Blood Urea Nitrogen 16 7-18 mg/dl Creatinine 0.83 0.60-1.40 mg/dl Est Creatinine Clear Calc Drug Dose 129.0 ml/min Estimated GFR () 109.3 Estimated GFR (Non- 94.3 BUN/Creatinine Ratio 19.6 10-20 Random Glucose 109 70-99 mg/dl Calcium Level 8.9 8.5-10.1 mg/dl Total Bilirubin 0.3 0.2-1 mg/dl Aspartate Amino Transf (AST/SGOT) 19 15-37 U/L Alanine Aminotransferase (ALT/SGPT) 25 12-78 U/L Alkaline Phosphatase 85 45-117 U/L Total Creatine Kinase 68 39-308 U/L Creatine Kinase MB 3.1 0.5-3.6 ng/ml Creatine Kinase MB Ratio 4.6 0-3.0 Troponin I < 0.015 0-0.045 ng/ml Pro-B-Type Natriuretic Peptide 110 0-900 pg/ml Total Protein 7.1 6.4-8.2 gm/dl Albumin 3.2 3.4-5.0 gm/dl Globulin 3.9 2.5-4.0 gm/dl Albumin/Globulin Ratio 0.8 0.9-2 Diagnostic Radiology CXR: IMPRESSION: 1. Advanced emphysema with no acute cardiopulmonary abnormality. 2. A nodular density in the left midlung is unchanged to slightly increased in size from previous. Follow-up with a nonemergent repeat chest CT is recommended for reassessment. EKG EKG: poor quality EKG. sinus rhythm rate 92 Impression - H&P Impression Assessment and Plan SOB/HYPOXIA/CHRONIC RESPIRATORY FAILURE COPD exacerbation vs bronchitis vs volume overload, suspect COPD exacerbation at this time. Pt afebrile. CXR: no infiltrate, WBC: 11. negative troponin. BNP: 110. O2 sats:90's on 3L NC drops with exertion. -repeat EKG as initial poor quality -obtain ABG -influenza swab -MRSA swab -blood cultures pending -Xopenex/Atrovent nebs -Levaquin po -Solumedrol 40mg IV Q6H -continue ellipta -O2 per protocol -Lasix 40mg IV bid -continue home po potassium -continue cartia -echo -pulmonology consult -repeat CBC, PRP, mag in am LE EDEMA Pt with chronic lymphedema BLE, hasn't been taking lasix past couple of days. Lymphedema vs volume overload vs cellulitis -vancomycin to cover cellulitis at this time -lasix IV -u/s LE r/o DVT -wound care nurse consult DEPRESSION/ANXIETY -continue zoloft -continue ativan prn anxiety DVT PROPHYLAXIS -lovenox DISPOSITION -admit tele -Full Code as per discussion with pt -Follows with Dr Jiménez for routine care Pt was seen with Dr Nelson. See addendum ATTENDING ADDENDUM delayed entry date of serices as noted above care coordinated with MIRTA Murray please refer to her notes for full details, I agree with her notes patient seen and examined, records reviewed by myself as well on exam, patient seen resting in bed, states breathing is improving no leg pain no other symptoms VS noted and reviewed oriented x 3, not in distress, speaks in sentences with no effort nor accessory muscle use normal rate, regular rhythm, no murmurs faint wheeze bilaterally non distended, soft, nontender (+) significant lower extremity edema, with moderate erythema on the lower distal aspect no neuro deficits WBC 11.6 Crea 0.83 ASSESSMENT/PLAN> ACUTE ON CHRONIC HYPOXIC RESPIRATORY FAILURE COPD EXACERBATION ACUTE BRONCHITIS - solumedrol, levaquin, nebs Pulm consulted ACUTE ON CHRONIC LOWER EXTREMITY EDEMA POSSIBLE CELLULITIS - Vancomycin IV Lasix other diagnoses and plan of care as per MIRTA Murary notes Rigo Nelson MD Level of Care Telemetry Resuscitation Status FULL RESUSCITATION VTE Prophylaxis VTE Risk Assessment Done? Y/N: Yes Risk Level: Moderate Given or contraindicated: Enoxaparin (Lovenox)SQ Additional Copies To Uriel Jiménez MD Physical Exam (per Admitting): General Appearance: WD/WN, + pertinent finding (+dyspnea with prolonged talking) Head: normocephalic, atraumatic Eyes: normal inspection, PERRL, EOMI, sclerae normal ENT: hearing grossly normal, pharynx normal, + pertinent finding (mucous membranes moist) Neck: supple, no JVD, trachea midline Respiratory/Chest: chest non-tender, no accessory muscle use, + decreased breath sounds (throughout. +expiratory wheezing noted. no rales noted) Cardiovascular: regular rate, rhythm, no murmur Abdomen/GI: normal bowel sounds, non tender, soft Extremities/Musculoskelatal: normal capillary refill, + pertinent finding ( Bilateral lower extremities with lymphedema, very dry skin, +mild erythema lower extremities, no purulent discharge noted. limited ROM extremities) Neurologic/Psych: alert, normal mood/affect, oriented x 3 Skin: normal color, warm/dry, + pertinent finding (see extremities) Hospital Course PAROXYSMAL A FIB: Rate control on sinus rhythm Was on heparin drip and Cardizem initially, that was d/c Case discussed with Cardiology dr. Pablo recommended to continue sotalol and diltiazem. Stable to discharge home from cardiology standpoint ECHO showed * Sinus rhythm was present during the echocardiogram. * The left ventricular wall motion was grossly normal on technically limited assessment. * The LV Ejection Fraction = 55-60%. * Grade I diastolic dysfunction, (abnormal relaxation pattern). * Doppler findings do not suggest pulmonary hypertension. * There is no significant valvular heart disease. * The right ventricle is normal in size and function. Remains stable No cardiac issue -rate remains controlled BP has been on the lower side Will start home Lasix dose Clinically improved -will discharge today Patient is agreeable CHRONIC LYMPHEDEMA: of B/L LE Left Leg is worse than the right Chronic Lymphedema and venous stasis Was on Lasix 40mg, that has been held due to elevated Bicarb LE US negative for DVT Wound care consulted Diuretic PRN on discharge Will try Lasix for a day or two-discharge on home Lasix dose Elevate the legs -slightly improved OP referral to Lymphedema clinic Severe COPD with ACUTE ON CHRONIC RESPIRATORY FAILURE: with Hypoxemia and hypercapnia CXR showed no infiltrate, no pulmonary congestion Blood cx negative On Xopenex/Atrovent nebs q4 and changed to PRN from 11/28/16 Levaquin discontinued Continue prednisone and tapering Pulmonology consulted, appreciate recommendations Received Acetazolamide for 3 days as per Pulmonary Continue BIPAP at night and whenever pt sleeps Stable and back to baseline Denied from [employer] CO2 reasonably better Advised to use more of BIPAP as needed and all the time at night Patient is agreeable -understands that breathing can be worse at any time ABNORMAL UA UA POSITIVE urine culture negative Afebrile and no leukocytosis DEPRESSION/ANXIETY: On Zoloft Continue Ativan prn anxiety DVT px on Coumadin CODE STATUS FULL CODE DISPOSITION Waiting for placement to discharge Consultants: Cardio Wound care DISPOSITION Likely to go home with BIPAP today Total time spent on discharge = 40 minutes This includes examination of the patient, discharge planning, medication reconciliation, and communication with other providers. Discharge Instructions Date of Service Dec 05, 2017. Admission Reason for Admission: Copd Exacerbation, Lymphedema, Sob Discharge Discharge Diagnosis / Problem: Severe COPD-On BIPAP,AF on Sotalol,Right Leg Lymphedema Discharge Goals Goal(s): Prevent Disease Progression Activity Recommendations Activity Limitations: resume your previous activity (Avoid over exertion) . Instructions / Follow-Up Instructions / Follow-Up Dr Jiménez on 12/07/17 at 12:45 PM.Coagulation clinic notified.Will need regular Cardiology and Pulmonary follow up. Current Hospital Diet Patient's current hospital diet: Regular Diet Discharge Diet Recommended Diet: Regular Diet Fluid Restriction: 1500 ml (6 cups) Pending Studies Studies pending at discharge: no Medical Emergencies . Who to Call and When: Medical Emergencies: If at any time you feel your situation is an emergency, please call 911 immediately. . Non-Emergent Contact Non-Emergency issues call your: Primary Care Provider . Past History Medical & Surgical History: (1) Atrial fibrillation with rapid ventricular response (2) Hypoxia (3) COPD (chronic obstructive pulmonary disease) (4) History of tobacco abuse (5) Cellulitis (6) Lymphedema (7) COPD exacerbation (8) pleurodesis (9) H/O knee surgery (10) H/O colonoscopy . "Provider Documentation" section prepared by Jesus Mott. . VTE Core Measure Inpt VTE Proph given/why not?: Enoxaparin (Lovenox)SQ <Electronically signed by Jesus Mott M.D.> Signed: 12/05/17 1129 Additional Copies To Uriel Jiménez MD
== END 2017-12-05 15:10 | disposition home health service (06) | DRG 606 ==
LOC: EDBD 19:14 → C.EDB 19:15 → C.MED 22:36 → ENRESERV 22:56
PROVIDERS: ADMIT Internal Medicine; ATTEND Internal Medicine
DX: I89.0 Lymphedema, not elsewhere classified (principal); J96.21 Acute and chronic respiratory failure with hypoxia; J96.22 Acute and chronic respiratory failure with hypercapnia; J44.1 Chronic obstructive pulmonary disease with (acute) exacerbation; I48.0 Paroxysmal atrial fibrillation; E87.6 Hypokalemia; R82.90 Unspecified abnormal findings in urine; R91.1 Solitary pulmonary nodule; I87.8 Other specified disorders of veins; F32.9 Major depressive disorder, single episode, unspecified; F41.9 Anxiety disorder, unspecified; Z51.81 Encounter for therapeutic drug level monitoring; Z79.899 Other long term (current) drug therapy; Z99.81 Dependence on supplemental oxygen; Z87.09 Personal history of other diseases of the respiratory system; Z87.01 Personal history of pneumonia (recurrent); Z77.090 Contact with and (suspected) exposure to asbestos; Z87.891 Personal history of nicotine dependence; Z82.3 Family history of stroke; Z82.49 Family history of ischemic heart disease and other diseases of the circulatory system; Z80.7 Family history of other malignant neoplasms of lymphoid, hematopoietic and related tissues

== ENCOUNTER 2017-12-17 09:17 | Inpatient (IN) | payer OTHER ==
[2017-12-17] VITALS (7 sets, daily range): BP systolic 93–96; BP diastolic 60–63; PULSE 77–96; TEMP 36.9–37.1; O2SAT 94–98; Ht 193 cm; Wt 99.1 kg
[~2017-12-17] VITALS: Ht 193 cm; Wt 99.1 kg
[~2017-12-17 09:17] MED LIST changes: -ATRINS INH; +BTP80 PO; +CRDCD180 PO; -DILT120C68 PO; -DOXY100C76 PO; +FRS/40 PO; -FURO40TA3 PO; +NICO14DI5 TD; +NTRSLP4 SL; -OXYC-57 PO; +POTA-74 PO; -POTA10TA PO; +PRD10 PO; +PROB1TAB16 PO; -SACC250C11 PO; -SERT50TA PO; +WARF5TAB90 PO; +ZLF/50 PO
--- NOTE | 2017-12-17 09:36 | EMERGENCY ROOM VISIT NOTE ---
History Report prepared by [place]: Jose Arredondo Under the Supervision of: Dr. Farhat العلي M.D. First contact with patient: 09:23 Chief Complaint: SWELLING TO EXTREMITY Stated Complaint: CELLULITIS History of Present Illness The patient is a 62 year old male with a history of paroxysmal atrial fibrillation who presents to the Emergency Room with complaints of worsening bilateral leg swelling this morning. He states that he was just recently in the hospital for leg cellulitis, and was on IV antibiotics while here, but is not on them anymore. The patient notes that his legs began to swell much more and become more reddened this morning, as compared to when he left the hospital a few days ago. He says that he can barely walk, and has been using a walker. Per the nursing staff, the patient's right leg is draining a lot, but the left leg is still draining but less so. The patient says that the legs were draining while in the hospital. He adds that he has not been eating okay recently due to generalized weakness and the inability to walk to the kitchen. He notes that his breathing has been a bit harder this morning. The patient says that he was taken off of Warfarin for 2 days because his INR was too high (greater than 4). He denies any fevers, nausea, vomiting, abdominal pain, or abdominal distension. He is on 2 liters of oxygen at home. Source of History: patient, nursing staff Onset: This morning Position: leg (bilateral) Quality: other (swelling, reddening, drainage) Timing: worsening Associated Symptoms: + SOB, + weakness, No fevers, No nausea, No vomiting, No abdominal pain (or distension) Note: Associated symptoms: Eating less recently. Review of Systems See HPI for pertinent positives & negatives. A total of 10 systems reviewed and were otherwise negative. Past Medical & Surgical Medical Problems: (1) Anticoagulant long-term use (2) Asbestos exposure (3) Atrial fibrillation with rapid ventricular response (4) Bronchitis (5) Cellulitis (6) Chronic acquired lymphedema (7) Chronic atrial fibrillation (8) COPD (chronic obstructive pulmonary disease) (9) COPD (chronic obstructive pulmonary disease) (10) COPD exacerbation (11) Emphysema of lung (12) Healthcare-associated pneumonia (13) History of tobacco abuse (14) Lymphedema (15) No known allergies (16) pleurodesis (17) Pneumonia (18) Pneumothorax (19) Pneumothorax (20) SOB (shortness of breath) Surgical Problems: (1) H/O colonoscopy (2) H/O inguinal hernia repair (3) H/O knee surgery (4) H/O left knee surgery (5) Hx of cholecystectomy (6) Hx of inguinal hernia repair (7) pleurodesis Family History FH: cancer Lung disease Stroke Social History Smoking Status: Former Smoker Marital Status: single Occupation Status: disabled Current/Historical Medications Scheduled Azithromycin (Azithromycin), 250 MG PO DIRECTED Desloratadine (Desloratadine), 5 MG PO QAM Diltiazem Hcl Ext Rel (Tiazac), 180 MG PO DAILY Home O2 Therapy (Oxygen), 2 LITERS NA CONTINOUS Nitroglycerin (Nitrostat), 0.4 MG UT PRN Prednisone (Prednisone), 10 MG PO QAM Probiotic Product (Probiotic), 1 TAB PO DAILY Sertraline (Zoloft), 100 MG PO HS Sotalol Hcl (Sotalol Hcl), 80 MG PO BID Umeclidinium-Vilanterol (Anoro Ellipta 62.5-25 Mcg/INH), 1 PUFF INH QAM Warfarin Sod (Jantoven), 5 MG PO QPM Scheduled PRN Furosemide (Lasix), 40 MG PO DAILY PRN for Edema Guaifenesin La (Guaifenesin Er), 600 MG PO Q12H PRN for Cough Ipratropium-Albuterol (Combivent Respimat), 1 PUFF INH QID PRN for Cough/SOB or Wheezing Ipratropium-Albuterol (Duoneb), 1 TREATMENT INH TID PRN for SOB/Wheezing Lorazepam (Lorazepam), 0.5 MG PO TID PRN for Anxiety/Shortness Of Breath Potassium Chloride (Potassium Chloride Er), 10 MEQ PO DAILY PRN for If Lasix Taken Prednisone (Prednisone), 40 MG PO DIRECTED PRN for COPD Allergies Coded Allergies: No Known Allergies (Unverified , 05/18/17) Physical Exam Vital Signs Date Time Temp Pulse Resp B/P (MAP) Pulse Ox O2 Delivery O2 Flow Rate FiO2 12/17/17 10:17 87 18 99 12/17/17 10:12 92 20 118/98 98 Oxymask 12/17/17 10:00 99 Oxymask 12/17/17 10:00 118/98 12/17/17 09:51 141/89 12/17/17 09:47 91 97 12/17/17 09:27 97 12/17/17 09:23 37.2 97 14 116/82 98 Nasal Cannula 2.0 Physical Exam GENERAL: Patient is chronically unwell appearing and in mild distress. HEENT: No acute trauma, normocephalic atraumatic, mucous membranes moist, no nasal congestion, no scleral icterus. NECK: No stridor, no adenopathy, no meningismus, trachea is midline. LUNGS: Mild dyspnea. Some faint diffuse crackles. HEART: Regular rate and rhythm. No murmurs, rubs, gallops appreciated. ABDOMEN: Soft, nontender, bowel sounds positive, no masses appreciated, no peritonitis. BACK: No midline tenderness, no CVA tenderness EXTREMITIES: 4+ pitting edema with bilateral lower extremity lymphedema. Dry flaking skin. Dark erythema right foot extending to right knee with serous drainage from right ankle. Pulses faint bilaterally but equal. Lymphedema right leg much worse than left. NEUROLOGIC: Alert and oriented, no acute motor or sensory deficits, no focal weakness, cranial nerves grossly intact. SKIN: No rash, no jaundice, no diaphoresis. Medical Decision & Procedures ER Provider Diagnostic Interpretation: X ray results are stated below per my interpretation and the radiologist's interpretation. CHEST ONE VIEW PORTABLE CLINICAL HISTORY: Fever. COMPARISON STUDY: Chest radiograph November 15, 2017. FINDINGS: Severe emphysema is noted. There has been interval development of extensive left mid and lower lung airspace opacity suggestive of pneumonia. No cavitation is identified. There is a small left pleural effusion. There may be a trace right pleural effusion. Cardiac size is normal. Mediastinal contours are normal. There is no pneumothorax. IMPRESSION: 1. Interval development of extensive left mid and lower lung airspace opacity since exam of November 15, 2017 consistent with pneumonia. Radiographic follow-up to ensure resolution is recommended. 2. Small left pleural effusion. 3. Severe emphysema. Electronically signed by: Paramjit Linder M.D. 12/17/2017 10:00 AM Dictated Date/Time: 12/17/2017 9:59 AM Laboratory Results 12/17/17 09:30 Red Blood Count 4.47, Mean Corpuscular Volume 91.9, Mean Corpuscular Hemoglobin 28.6, Mean Corpuscular Hemoglobin Concent 31.1, Mean Platelet Volume 8.4, Neutrophils (%) (Auto) 86.0, Lymphocytes (%) (Auto) 6.0, Monocytes (%) (Auto) 6.1, Eosinophils (%) (Auto) 0.8, Basophils (%) (Auto) 0.1, Neutrophils # (Auto) 12.28, Lymphocytes # (Auto) 0.85, Monocytes # (Auto) 0.87, Eosinophils # (Auto) 0.11, Basophils # (Auto) 0.01 12/17/17 09:30 Test 12/17/17 09:30 12/17/17 10:00 White Blood Count 14.26 K/uL (4.8-10.8) Red Blood Count 4.47 M/uL (4.7-6.1) Hemoglobin 12.8 g/dL (14.0-18.0) Hematocrit 41.1 % (42-52) Mean Corpuscular Volume 91.9 fL (80-100) Mean Corpuscular Hemoglobin 28.6 pg (25-34) Mean Corpuscular Hemoglobin Concent 31.1 g/dl (32-36) Platelet Count 254 K/uL (130-400) Mean Platelet Volume 8.4 fL (7.4-10.4) Neutrophils (%) (Auto) 86.0 % Lymphocytes (%) (Auto) 6.0 % Monocytes (%) (Auto) 6.1 % Eosinophils (%) (Auto) 0.8 % Basophils (%) (Auto) 0.1 % Neutrophils # (Auto) 12.28 K/uL (1.4-6.5) Lymphocytes # (Auto) 0.85 K/uL (1.2-3.4) Monocytes # (Auto) 0.87 K/uL (0.11-0.59) Eosinophils # (Auto) 0.11 K/uL (0-0.5) Basophils # (Auto) 0.01 K/uL (0-0.2) RDW Standard Deviation 44.9 fL (36.4-46.3) RDW Coefficient of Variation 13.4 % (11.5-14.5) Immature Granulocyte % (Auto) 1.0 % Immature Granulocyte # (Auto) 0.14 K/uL (0.00-0.02) Prothrombin Time 18.4 SECONDS (9.0-12.0) Prothromb Time International Ratio 1.8 (0.9-1.1) Anion Gap 2.0 mmol/L (3-11) Est Creatinine Clear Calc Drug Dose 93.1 ml/min Estimated GFR () 82.0 Estimated GFR (Non- 70.8 BUN/Creatinine Ratio 22.5 (10-20) Calcium Level 8.9 mg/dl (8.5-10.1) Magnesium Level 2.1 mg/dl (1.8-2.4) Total Bilirubin 0.6 mg/dl (0.2-1) Direct Bilirubin 0.2 mg/dl (0-0.2) Aspartate Amino Transf (AST/SGOT) 47 U/L (15-37) Alanine Aminotransferase (ALT/SGPT) 110 U/L (12-78) Alkaline Phosphatase 78 U/L (45-117) Total Creatine Kinase 20 U/L (39-308) Creatine Kinase MB 1.1 ng/ml (0.5-3.6) Creatine Kinase MB Ratio 5.5 (0-3.0) Troponin I < 0.015 ng/ml (0-0.045) C-Reactive Protein 13.00 mg/dl (0-0.29) Pro-B-Type Natriuretic Peptide 279 pg/ml (0-900) Total Protein 6.8 gm/dl (6.4-8.2) Albumin 2.3 gm/dl (3.4-5.0) Procalcitonin 0.10 ng/ml (0-0.5) Lactic Acid Level 1.0 mmol/L (0.4-2.0) Laboratory results as reviewed by me. Medications Administered Medications (Trade) Dose Ordered Sig/Denisse Route Start Time Stop Time Status Last Admin Dose Admin Vancomycin HCl 2500 mg/Sodium Chloride 550 ml @ 200 mls/hr ONE STAT IV 12/17/17 10:02 12/17/17 12:46 DC 12/17/17 10:44 200 MLS/HR Piperacillin Sod/ Tazobactam Sod (Zosyn Iv) 4.5 gm NOW STAT IV 12/17/17 10:02 12/17/17 10:03 DC 12/17/17 10:13 4.5 GM Sodium Chloride 1,000 ml @ 125 mls/hr Q8H STAT IV 12/17/17 10:21 12/17/17 13:23 DC 12/17/17 10:45 125 MLS/HR ECG Indication: SOB/dyspnea Rate (beats per minute): 95 Rhythm: normal sinus Findings: no acute ischemic change, no ectopy Change: EKG: Electrocardiogram per my interpretation. ED Course 09: The patient was evaluated in room C3. A complete history and physical exam was performed. 1006: Upon reevaluation, the patient is resting. Discussed results and treatment plan with the patient. he verbalized understanding and agreement with the treatment plan. The patient will be evaluated for further management. 1007: I discussed the patient with Dr. Matti Perez land law examiner - she will evaluate the patient for further treatment. Medical Decision Differential: DVT, CHF, Arterial Occlusion, Infectious, Joint Effusion, Trauma, Lymphedema, Idiopathic, Trauma, amongst other pathologies entertained. 62 yr old male with unclear etiology of severe bilateral leg lymphedema arrives from home secondary to worsening weakness, lack of appetite, redness right leg, increased swelling and after discussion increasing WOB. Large left lobe PNA noted CXR. Cellulitis consistent with acute infection. CRP elevated as expected. He is not in septic shock but I did opt to get blood cultures given infections. Zosyn/Vanco given for skin/lung coverage. Patient will need to come in given severity of his illness and is agreeable to this. Medication Reconcilliation Current Medication List: was personally reviewed by me Blood Pressure Screening Patient's blood pressure: Normal blood pressure Consults Time Called: 1006 Consulting Physician: Dr. Matti Perez land law examiner Returned Call: 1007 I discussed the patient with Dr. Matti Perez land law examiner - she will evaluate the patient for further treatment. Impression Primary Impression: Left lower lobe pneumonia Additional Impressions: Lymphedema Cellulitis Dehydration Malnutrition Scribe Attestation The scribe's documentation has been prepared under my direction and personally reviewed by me in its entirety. I confirm that the note above accurately reflects all work, treatment, procedures, and medical decision making performed by me. Departure Information Dispostion Being Evaluated By Hospitalist Referrals Uriel Jiménez MD (PCP) Patient Instructions My [facility] Problem Qualifiers
[2017-12-17] MEDS ORDERED: DILT-113 PO (09:53)
[2017-12-17] MEDS ORDERED: SOTA80TA PO (09:53)
[2017-12-17] MEDS ORDERED: PRED20TA PO (09:53)
[2017-12-17] MEDS ORDERED: GUAI1TAB75 PO (09:53)
[2017-12-17] MEDS ORDERED: AZIT-57 PO (09:53)
[2017-12-17] MEDS ORDERED: NTRGSL/4 UT (09:53)
[2017-12-17] MEDS ORDERED: WARF5TAB7 PO (09:53)
[2017-12-17] MEDS ORDERED: SERT-234 PO (09:53)
[2017-12-17 09:54] LABS: BASO % 0.1 %; BASO ABS # 0.01 K/uL (0-0.2); EOS % 0.8 %; EOS ABS # 0.11 K/uL (0-0.5); HEMATOCRIT 41.1 % (42-52); HEMOGLOBIN 12.8 g/dL (14.0-18.0); IG# 0.14 K/uL (0.00-0.02); LYMPH ABS # 0.85 K/uL (1.2-3.4); MEAN CELL VOLUME 91.9 fL (80-100); MEAN CORPUSCULAR HEMOGLOBIN 28.6 pg (25-34); MEAN CORPUSCULAR HGB CONC 31.1 g/dl (32-36); MEAN PLATELET VOLUME 8.4 fL (7.4-10.4); MONO % 6.1 %; MONO ABS # 0.87 K/uL (0.11-0.59); NEUT ABS # 12.28 K/uL (1.4-6.5); PLATELET COUNT 254 K/uL (130-400); RED CELL DISTRIBUTION WIDTH CV 13.4 % (11.5-14.5); RED CELL DISTRIBUTION WIDTH SD 44.9 fL (36.4-46.3); WHITE BLOOD COUNT 14.26 K/uL (4.8-10.8)
[2017-12-17 10:02] LABS: INR 1.8 (0.9-1.1)
[2017-12-17] MEDS ORDERED: PIPERACILLIN/TAZOBACTAM 4.5 GM/100ML D5W IV STA (10:02)
[2017-12-17] MEDS ORDERED: VANCOMYCIN INJ 2,500 MG in SODIUM CHLORIDE 0.9% 500ML 500 ML IV STA (10:02)
--- NOTE | 2017-12-17 10:02 | DIAGNOSTIC IMAGING REPORT ---
CHEST ONE VIEW PORTABLE CLINICAL HISTORY: Fever. COMPARISON STUDY: Chest radiograph November 15, 2017. FINDINGS: Severe emphysema is noted. There has been interval development of extensive left mid and lower lung airspace opacity suggestive of pneumonia. No cavitation is identified. There is a small left pleural effusion. There may be a trace right pleural effusion. Cardiac size is normal. Mediastinal contours are normal. There is no pneumothorax. IMPRESSION: 1. Interval development of extensive left mid and lower lung airspace opacity since exam of November 15, 2017 consistent with pneumonia. Radiographic follow-up to ensure resolution is recommended. 2. Small left pleural effusion. 3. Severe emphysema. Electronically signed by: Paramjit Linder M.D. 12/17/2017 10:00 AM Dictated Date/Time: 12/17/2017 9:59 AM
[2017-12-17 10:11] LABS: ALBUMIN 2.3 gm/dl (3.4-5.0); ALT/SGPT 110 U/L (12-78); BLOOD UREA NITROGEN 25 mg/dl (7-18); CALCIUM 8.9 mg/dl (8.5-10.1); CARBON DIOXIDE 35 mmol/L (21-32); CREATININE 1.11 mg/dl (0.60-1.40); GLUCOSE 113 mg/dl (70-99); POTASSIUM 4.7 mmol/L (3.5-5.1); SODIUM 133 mmol/L (136-145)
[2017-12-17 10:15] LABS: ALKALINE PHOSPHATASE 78 U/L (45-117); AST/SGOT 47 U/L (15-37); CKMB 1.1 ng/ml (0.5-3.6); TOTAL PROTEIN 6.8 gm/dl (6.4-8.2)
[2017-12-17] MEDS ORDERED: VANCOMYCIN CONSULT ACTIVE PRN ×2 (10:15→11:30)
[2017-12-17] MEDS ORDERED: SODIUM CHLORIDE 0.9% 1000ML 1,000 ML IV STA (10:21)
[2017-12-17] MEDS ORDERED: ONDANSETRON INJ 2 MG/ML 2 ML VIAL IV PRN (11:30)
[2017-12-17] MEDS ORDERED: POLYETHYLENE (MIRALAX) 17 GM PACK PO PRN (11:30)
[2017-12-17] MEDS ORDERED: PIPERACILL/TAZOBAC CONSULT ACTIVE PRN (11:30)
[2017-12-17] MEDS ORDERED: NITROGLYCERIN 0.4 MG SL PER TAB CHARGE UT SCH (11:30)
--- NOTE | 2017-12-17 11:53 | History and Physical ---
History & Physical Date & Time of Service: Dec 17, 2017 at 11:34 Chief Complaint: Cellulitis Primary Care Physician: Uriel Jiménez MD History of Present Illness Source: patient, clinic records, hospital records 62 yo M with recent hospital admission last week for COPD presents with an increase in his RLE swelling with redness and warmth. He was incidentally found to have a L PNA in the ER on CXR. He denies pain, reports a chronic cough , denies fevers, chills, diarrhea, UTI symptoms, SOB, CP or any other symptom. He reports that he doesn't ambulate much. He recently had a supratherapeutic INR and was told to hold his coumadin for a few days. His INR has come down to 1.8 today. Home Health nurses see him and called for the ambulance this morning after seeing his leg. Past Medical/Surgical History Medical Problems: (1) Anticoagulant long-term use Status: Chronic (2) Asbestos exposure Status: Chronic (3) Chronic acquired lymphedema Status: Chronic (4) Chronic atrial fibrillation Status: Chronic (5) COPD (chronic obstructive pulmonary disease) Status: Chronic (6) History of tobacco abuse Status: Chronic (7) pleurodesis Status: Chronic (8) Pneumothorax Status: Resolved Surgical Problems: (1) H/O colonoscopy Status: Chronic (2) H/O inguinal hernia repair Status: Chronic (3) H/O knee surgery Status: Chronic (4) H/O left knee surgery Status: Chronic (5) Hx of inguinal hernia repair Permanent Comment: 05/2017 - Right inguinal hernia repair - DR Yoder Status: Resolved (6) pleurodesis Status: Chronic Family History FH: cancer Lung disease Stroke Social History Smoking Status: Former Smoker Smokeless Tobacco Use: Unknown Alcohol Use: none Drug Use: none Marital Status: Housing status: lives alone Occupational Status: disabled Immunizations History of Influenza Vaccine: Yes Influenza Vaccine Date: Sep 14, 2017 History of Tetanus Vaccine?: Yes Tetanus Immunization Date: Feb 20, 2010 History of Pneumococcal: Yes Pneumococcal Date: April 01, 2016 History of Hepatitis B Vaccine: No Multi-Drug Resistant Organisms History of MDRO: No Allergies Coded Allergies: No Known Allergies (Unverified , 05/18/17) Home Medications Scheduled Azithromycin (Azithromycin), 250 MG PO DIRECTED Desloratadine (Desloratadine), 5 MG PO QAM Diltiazem Hcl Ext Rel (Tiazac), 180 MG PO DAILY Home O2 Therapy (Oxygen), 2 LITERS NA CONTINOUS Nitroglycerin (Nitrostat), 0.4 MG UT PRN Prednisone (Prednisone), 10 MG PO QAM Probiotic Product (Probiotic), 1 TAB PO DAILY Sertraline (Zoloft), 100 MG PO HS Sotalol Hcl (Sotalol Hcl), 80 MG PO BID Umeclidinium-Vilanterol (Anoro Ellipta 62.5-25 Mcg/INH), 1 PUFF INH QAM Warfarin Sod (Jantoven), 5 MG PO QPM Scheduled PRN Furosemide (Lasix), 40 MG PO DAILY PRN for Edema Guaifenesin La (Guaifenesin Er), 600 MG PO Q12H PRN for Cough Ipratropium-Albuterol (Combivent Respimat), 1 PUFF INH QID PRN for Cough/SOB or Wheezing Ipratropium-Albuterol (Duoneb), 1 TREATMENT INH TID PRN for SOB/Wheezing Lorazepam (Lorazepam), 0.5 MG PO TID PRN for Anxiety/Shortness Of Breath Potassium Chloride (Potassium Chloride Er), 10 MEQ PO DAILY PRN for If Lasix Taken Prednisone (Prednisone), 40 MG PO DIRECTED PRN for COPD Review of Systems At least ten systems were reviewed and negative except as indicated in HPI above , Physical Exam Vital Signs Date Time Temp Pulse Resp B/P (MAP) Pulse Ox O2 Delivery O2 Flow Rate FiO2 12/17/17 11:32 37.2 91 15 113/91 98 12/17/17 11:31 /91 12/17/17 11:17 91 15 12/17/17 11:01 113/85 12/17/17 10:47 85 18 98 12/17/17 10:38 90 18 162/88 99 Oxymask 12/17/17 10:31 162/88 12/17/17 10:28 98 Non-Rebreather 2.0 12/17/17 10:17 87 18 99 12/17/17 10:12 92 20 118/98 98 Oxymask 12/17/17 10:00 99 Oxymask 12/17/17 10:00 118/98 12/17/17 09:51 141/89 12/17/17 09:47 91 97 12/17/17 09:27 97 12/17/17 09:23 37.2 97 14 116/82 98 Nasal Cannula 2.0 General Appearance: WD/WN, no apparent distress, + pertinent finding (oxymask in use at 3L) Head: normocephalic, atraumatic Eyes: normal inspection, sclerae normal ENT: hearing grossly normal Neck: trachea midline Respiratory/Chest: lungs clear, normal breath sounds, no respiratory distress, no accessory muscle use Cardiovascular: regular rate, rhythm, no edema, no gallop, no JVD, no murmur, normal peripheral pulses Abdomen/GI: normal bowel sounds, non tender, soft Extremities/Musculoskelatal: normal capillary refill, + pertinent finding ( bilateral lymphedema with chronic changes to skin, seepage of serosanguinous fluid through skin on posterior calves bilaterally, erythema and warmth to just distal to L knee extending length of lower leg to foot) Neurologic/Psych: senior software engineer analytics II-XII nml as tested, no motor/sensory deficits, alert, normal mood/affect, oriented x 3 Skin: + pertinent finding (as above.) Diagnostics Laboratory Results 12/17/17 09:30 Red Blood Count 4.47, Mean Corpuscular Volume 91.9, Mean Corpuscular Hemoglobin 28.6, Mean Corpuscular Hemoglobin Concent 31.1, Mean Platelet Volume 8.4, Neutrophils (%) (Auto) 86.0, Lymphocytes (%) (Auto) 6.0, Monocytes (%) (Auto) 6.1, Eosinophils (%) (Auto) 0.8, Basophils (%) (Auto) 0.1, Neutrophils # (Auto) 12.28, Lymphocytes # (Auto) 0.85, Monocytes # (Auto) 0.87, Eosinophils # (Auto) 0.11, Basophils # (Auto) 0.01 12/17/17 09:30 Test 12/17/17 09:30 12/17/17 09:31 12/17/17 10:00 White Blood Count 14.26 K/uL (4.8-10.8) Red Blood Count 4.47 M/uL (4.7-6.1) Hemoglobin 12.8 g/dL (14.0-18.0) Hematocrit 41.1 % (42-52) Mean Corpuscular Volume 91.9 fL (80-100) Mean Corpuscular Hemoglobin 28.6 pg (25-34) Mean Corpuscular Hemoglobin Concent 31.1 g/dl (32-36) Platelet Count 254 K/uL (130-400) Mean Platelet Volume 8.4 fL (7.4-10.4) Neutrophils (%) (Auto) 86.0 % Lymphocytes (%) (Auto) 6.0 % Monocytes (%) (Auto) 6.1 % Eosinophils (%) (Auto) 0.8 % Basophils (%) (Auto) 0.1 % Neutrophils # (Auto) 12.28 K/uL (1.4-6.5) Lymphocytes # (Auto) 0.85 K/uL (1.2-3.4) Monocytes # (Auto) 0.87 K/uL (0.11-0.59) Eosinophils # (Auto) 0.11 K/uL (0-0.5) Basophils # (Auto) 0.01 K/uL (0-0.2) RDW Standard Deviation 44.9 fL (36.4-46.3) RDW Coefficient of Variation 13.4 % (11.5-14.5) Immature Granulocyte % (Auto) 1.0 % Immature Granulocyte # (Auto) 0.14 K/uL (0.00-0.02) Prothrombin Time 18.4 SECONDS (9.0-12.0) Prothromb Time International Ratio 1.8 (0.9-1.1) Anion Gap 2.0 mmol/L (3-11) Est Creatinine Clear Calc Drug Dose 93.1 ml/min Estimated GFR () 82.0 Estimated GFR (Non- 70.8 BUN/Creatinine Ratio 22.5 (10-20) Calcium Level 8.9 mg/dl (8.5-10.1) Magnesium Level 2.1 mg/dl (1.8-2.4) Total Bilirubin 0.6 mg/dl (0.2-1) Direct Bilirubin 0.2 mg/dl (0-0.2) Aspartate Amino Transf (AST/SGOT) 47 U/L (15-37) Alanine Aminotransferase (ALT/SGPT) 110 U/L (12-78) Alkaline Phosphatase 78 U/L (45-117) Total Creatine Kinase 20 U/L (39-308) Creatine Kinase MB 1.1 ng/ml (0.5-3.6) Creatine Kinase MB Ratio 5.5 (0-3.0) Troponin I < 0.015 ng/ml (0-0.045) C-Reactive Protein 13.00 mg/dl (0-0.29) Pro-B-Type Natriuretic Peptide 279 pg/ml (0-900) Total Protein 6.8 gm/dl (6.4-8.2) Albumin 2.3 gm/dl (3.4-5.0) Procalcitonin 0.10 ng/ml (0-0.5) Lactic Acid Level 1.0 mmol/L (0.4-2.0) Date/Time Source Procedure Growth Status 12/17/17 10:00 Blood Blood Culture Pending Received Results Past 24 Hours Test 12/17/17 09:30 12/17/17 10:00 Range/Units White Blood Count 14.26 4.8-10.8 K/uL Red Blood Count 4.47 4.7-6.1 M/uL Hemoglobin 12.8 14.0-18.0 g/dL Hematocrit 41.1 42-52 % Mean Corpuscular Volume 91.9 80-100 fL Mean Corpuscular Hemoglobin 28.6 25-34 pg Mean Corpuscular Hemoglobin Concent 31.1 32-36 g/dl Platelet Count 254 130-400 K/uL Mean Platelet Volume 8.4 7.4-10.4 fL Neutrophils (%) (Auto) 86.0 % Lymphocytes (%) (Auto) 6.0 % Monocytes (%) (Auto) 6.1 % Eosinophils (%) (Auto) 0.8 % Basophils (%) (Auto) 0.1 % Neutrophils # (Auto) 12.28 1.4-6.5 K/uL Lymphocytes # (Auto) 0.85 1.2-3.4 K/uL Monocytes # (Auto) 0.87 0.11-0.59 K/uL Eosinophils # (Auto) 0.11 0-0.5 K/uL Basophils # (Auto) 0.01 0-0.2 K/uL RDW Standard Deviation 44.9 36.4-46.3 fL RDW Coefficient of Variation 13.4 11.5-14.5 % Immature Granulocyte % (Auto) 1.0 % Immature Granulocyte # (Auto) 0.14 0.00-0.02 K/uL Prothrombin Time 18.4 9.0-12.0 SECONDS Prothromb Time International Ratio 1.8 0.9-1.1 Sodium Level 133 136-145 mmol/L Potassium Level 4.7 3.5-5.1 mmol/L Chloride Level 96 98-107 mmol/L Carbon Dioxide Level 35 21-32 mmol/L Anion Gap 2.0 3-11 mmol/L Blood Urea Nitrogen 25 7-18 mg/dl Creatinine 1.11 0.60-1.40 mg/dl Est Creatinine Clear Calc Drug Dose 93.1 ml/min Estimated GFR () 82.0 Estimated GFR (Non- 70.8 BUN/Creatinine Ratio 22.5 10-20 Random Glucose 113 70-99 mg/dl Calcium Level 8.9 8.5-10.1 mg/dl Magnesium Level 2.1 1.8-2.4 mg/dl Total Bilirubin 0.6 0.2-1 mg/dl Direct Bilirubin 0.2 0-0.2 mg/dl Aspartate Amino Transf (AST/SGOT) 47 15-37 U/L Alanine Aminotransferase (ALT/SGPT) 110 12-78 U/L Alkaline Phosphatase 78 45-117 U/L Total Creatine Kinase 20 39-308 U/L Creatine Kinase MB 1.1 0.5-3.6 ng/ml Creatine Kinase MB Ratio 5.5 0-3.0 Troponin I < 0.015 0-0.045 ng/ml C-Reactive Protein 13.00 0-0.29 mg/dl Pro-B-Type Natriuretic Peptide 279 0-900 pg/ml Total Protein 6.8 6.4-8.2 gm/dl Albumin 2.3 3.4-5.0 gm/dl Procalcitonin 0.10 0-0.5 ng/ml Lactic Acid Level 1.0 0.4-2.0 mmol/L Microbiology Results 12/17/17 Blood Culture, Received Pending 12/17/17 Blood Culture, Received Pending Diagnostic Radiology CHEST ONE VIEW PORTABLE CLINICAL HISTORY: Fever. COMPARISON STUDY: Chest radiograph November 15, 2017. FINDINGS: Severe emphysema is noted. There has been interval development of extensive left mid and lower lung airspace opacity suggestive of pneumonia. No cavitation is identified. There is a small left pleural effusion. There may be a trace right pleural effusion. Cardiac size is normal. Mediastinal contours are normal. There is no pneumothorax. IMPRESSION: 1. Interval development of extensive left mid and lower lung airspace opacity since exam of November 15, 2017 consistent with pneumonia. Radiographic follow-up to ensure resolution is recommended. 2. Small left pleural effusion. 3. Severe emphysema. EKG SR 95, no acute ischemic changes noted Impression Assessment and Plan 62 yo M prior smoker who presents with worsening swelling and redness in his RLE and was found to have L sided pneumonia after being discharged from the hospital last week 1. HCAP-L lung pneumonia, pt requiring baseline supplemental oxygen. He was recently admitted for a COPD exacerbation , discharged last week on a prednisone taper which he has cmopleted. He denies cough, fevers, chills, body aches, sick contacts or shortness of breath. Blood and sputum cultures pending. Cover broad with Vanc and Zosyn as patient was recently hospitalized. Legionella antigen pending. Flu PCR pending. Will narrow therapy pending culture results and clinical response. 2. RLE cellulitis-pt with bilateral chronic lymphedema with wounds that are seeping and open. No concepcion ulcers noted. Increased erythema, warmth and swelling noted in RLE. Vanc/Zosyn will cover an cellulitis here. DVT was considered, however, patient has been supratherapeutic on his coumadin since his recent hospitalization making this less likely. 3. Chronic lymphedema-wound care consulted. 4. Afib-chronic, anticoagulated on coumadin with admission INR 1.8. Rhythm control with sotalol and rate controlled with diltiazem. 5. COPD-appears stable after recent exacerbation last week. Will continue baseline prednisone 10mg PO daily, supplemental oxygen and duonebs in setting of pneumonia above. 6. Depression/Anxiety-zoloft, recently increased to 100 HS DVT proph-coumadin Full Code [facility] Advanced Directives Existing Living Will: Yes Existing Power of First Assistant: No Resuscitation Status FULL RESUSCITATION VTE Prophylaxis VTE Risk Assessment Done? Y/N: Yes Risk Level: Moderate Given or contraindicated: Warfarin (Coumadin)
--- NOTE | 2017-12-17 12:40 | Pharmacy Progress Note ---
Pharmacy Abx Initial Consult Date of Service Dec 17, 2017. Pharmacy Dosing Scope Date of Consult: 12/17/17 Consultation requested by: Dr. Chino Pharmacy is consulted to initiate Vancomycin IV dosing therapy, order appropriate labs and adjust drug dose/frequency. Subjective The patient is a 62 year old male admitted on Dec 17, 2017 at 10:22. Objective Height (Feet): 6 Height (Inches): 4.00 Weight (Kilograms): 108.400 Vital Signs (Past 12Hrs) Vital Signs Past 12 Hours Date Time Temp Pulse Resp B/P (MAP) Pulse Ox O2 Delivery O2 Flow Rate FiO2 12/17/17 11:32 37.2 91 15 113/91 98 12/17/17 11:31 /91 12/17/17 11:17 91 15 12/17/17 11:01 113/85 12/17/17 10:47 85 18 98 12/17/17 10:38 90 18 162/88 99 Oxymask 12/17/17 10:31 162/88 12/17/17 10:28 98 Non-Rebreather 2.0 12/17/17 10:17 87 18 99 12/17/17 10:12 92 20 118/98 98 Oxymask 12/17/17 10:00 99 Oxymask 12/17/17 10:00 118/98 12/17/17 09:51 141/89 12/17/17 09:47 91 97 12/17/17 09:27 97 12/17/17 09:23 37.2 97 14 116/82 98 Nasal Cannula 2.0 Lab Results (24Hrs) Laboratory Tests (24 Hours) Test 12/17/17 09:30 12/17/17 10:00 C-Reactive Protein 13.00 mg/dl (0-0.29) H White Blood Count 14.26 K/uL (4.8-10.8) H Red Blood Count 4.47 M/uL (4.7-6.1) L Hemoglobin 12.8 g/dL (14.0-18.0) L Hematocrit 41.1 % (42-52) L Mean Corpuscular Volume 91.9 fL (80-100) Mean Corpuscular Hemoglobin 28.6 pg (25-34) Mean Corpuscular Hemoglobin Concent 31.1 g/dl (32-36) L Platelet Count 254 K/uL (130-400) Mean Platelet Volume 8.4 fL (7.4-10.4) Neutrophils (%) (Auto) 86.0 % Lymphocytes (%) (Auto) 6.0 % Monocytes (%) (Auto) 6.1 % Eosinophils (%) (Auto) 0.8 % Basophils (%) (Auto) 0.1 % Neutrophils # (Auto) 12.28 K/uL (1.4-6.5) H Lymphocytes # (Auto) 0.85 K/uL (1.2-3.4) L Monocytes # (Auto) 0.87 K/uL (0.11-0.59) H Eosinophils # (Auto) 0.11 K/uL (0-0.5) Basophils # (Auto) 0.01 K/uL (0-0.2) Procalcitonin 0.10 ng/ml (0-0.5) Total Creatine Kinase 20 U/L (39-308) L Lactic Acid Level 1.0 mmol/L (0.4-2.0) Micro Results Date/Time Source Procedure Growth Status 12/17/17 10:00 Blood Blood Culture Pending Received 12/17/17 09:30 Blood Blood Culture Pending Received 12/17/17 11:40 Urine , Clean Catch Urine Culture Pending Received Risk Factors for Resistance * Hospitalization for 48 hours or more within the past 90 days * Immunocompromised * On chronic steroid use for COPD * Antimicrobial use within the last 90 days * On chronic suppressive therapy for cellulitis with doxycycline * Admitted 11/15/17 for COPD exacerbation/cellulitis where he was given Vancomycin and Levaquin * Recently on azithromycin, date unknown Assessment & Plan Assessment 62 year old male admitted for HCAP after a hospital stay in late october for COPD exacerbation and cellulitis. PMH of COPD, lymphedema, asbestos exposure and tobacco abuse. Baseline renal function ~0.9mg/dl, currently at 1.1 mg/dl Blood and sputum cultures ordered MRSA nasal swab ordered Plan Vancomycin for treatment of HCAP Vancomycin IV * Loading dose: 2500 mg (23 mg/kg) * Maintenance dose: 1750 mg IV (15 mg/kg) every 12 hours * Goal trough level for HCAP : 15 to 20 mcg/mL * Trough level ordered for 12/19 @0530 Piperacillin/tazobactam * 4.5 g bolus administered over 30 minutes, then 3.375 g IV extended infusion every 8 hours for CrCl greater than 20 mL/min Pharmacy will continue to follow and will adjust dose/frequency as necessary. Thank you.
[2017-12-17] MEDS ORDERED: TRAMADOL HCL 50 MG TAB PO PRN (14:00)
[2017-12-17 14:08] LABS: INFLUENZA A PCR Neg for Influ A (NEG); INFLUENZA B PCR Neg for Influ B (NEG)
[2017-12-17] MEDS: ALBUT/IPRATROP 3MG/0.5MG NEB 3 ML VIAL INH SCH ×2 (15:38→20:15)
[2017-12-17] MEDS: WARFARIN SOD 5 MG TAB PO SCH (16:00)
[2017-12-17] MEDS: PIPERACILL/TAZOBAC IV 3.375 GM in DEXTROSE 5% 100ML 100 ML IV SCH ×2 (16:22→23:22)
[2017-12-17] MEDS: VANCOMYCIN INJ 1,750 MG in SODIUM CHLORIDE 0.9% 500ML 500 ML IV SCH (18:27)
[2017-12-17] MEDS: SOTALOL HCL 80 MG TAB PO SCH (20:11)
[2017-12-17] MEDS: SERTRALINE HCL 100 MG TAB PO SCH (20:11)
[2017-12-17] MEDS: ACETAMINOPHEN 325 MG TAB PO PRN (20:12)
[2017-12-17] MEDS: LORAZEPAM 0.5 MG TAB PO PRN (20:12)
[2017-12-18] VITALS (19 sets, daily range): BP systolic 81–129; BP diastolic 51–80; PULSE 62–96; TEMP 36.5–37.7; O2SAT 92–100
[2017-12-18 05:52] LABS: BASO % 0.1 %; BASO ABS # 0.02 K/uL (0-0.2); EOS % 0.3 %; EOS ABS # 0.06 K/uL (0-0.5); HEMATOCRIT 38.2 % (42-52); HEMOGLOBIN 11.8 g/dL (14.0-18.0); IG# 0.08 K/uL (0.00-0.02); LYMPH % 4.5 %; LYMPH ABS # 0.82 K/uL (1.2-3.4); MEAN CELL VOLUME 92.9 fL (80-100); MEAN CORPUSCULAR HEMOGLOBIN 28.7 pg (25-34); MEAN CORPUSCULAR HGB CONC 30.9 g/dl (32-36); MONO ABS # 0.91 K/uL (0.11-0.59); NEUT % 89.7 %; NEUT ABS # 16.25 K/uL (1.4-6.5); PLATELET COUNT 214 K/uL (130-400); RED CELL DISTRIBUTION WIDTH CV 13.5 % (11.5-14.5); RED CELL DISTRIBUTION WIDTH SD 45.8 fL (36.4-46.3); WHITE BLOOD COUNT 18.14 K/uL (4.8-10.8)
[2017-12-18 05:58] LABS: INR 1.6 (0.9-1.1)
[2017-12-18 06:17] LABS: CALCIUM 8.1 mg/dl (8.5-10.1); CREATININE 0.9 mg/dl (0.60-1.40); POTASSIUM 4.4 mmol/L (3.5-5.1)
[2017-12-18] MEDS: VANCOMYCIN INJ 1,750 MG in SODIUM CHLORIDE 0.9% 500ML 500 ML IV SCH ×2 (06:23→18:13)
[2017-12-18] MEDS: ALBUT/IPRATROP 3MG/0.5MG NEB 3 ML VIAL INH SCH ×4 (07:37→19:04)
[2017-12-18] MEDS: POTASSIUM CHLORIDE 10 MEQ TABCR PO SCH (08:08)
[2017-12-18] MEDS: SACCHAROMYCES BOUL (FLORASTOR) 250 MG CAP PO SCH (08:08)
[2017-12-18] MEDS: FUROSEMIDE 40 MG TAB PO SCH (08:08)
[2017-12-18] MEDS: SOTALOL HCL 80 MG TAB PO SCH ×2 (08:08→20:57)
[2017-12-18] MEDS: DILTIAZEM HCL (TIAzac) 180 MG CAPCR PO SCH (08:09)
[2017-12-18] MEDS: PIPERACILL/TAZOBAC IV 3.375 GM in DEXTROSE 5% 100ML 100 ML IV SCH ×2 (08:11→16:19)
[2017-12-18] MEDS: ENOXAPARIN 40 MG/0.4 ML SYR SQ SCH (08:16)
--- NOTE | 2017-12-18 10:57 | Clinical Documentation Query ---
CLINICAL DOCUMENTATION QUERY 62 year old male who presents with HCAP. HCAP is more likely to be caused by bacteria resistant to first line antibiotics, such as MRSA and Pseudomonas(gram negative). Defining suspected bacteria specifies diagnosis thus validating severity of illness. In your clinical opinion is this patient being managed for: ( x ) Suspected MRSA or Gram negative pneumonia treated with combination IV Zosyn and Vancomycin therapy ( ) Not Agree ( ) Other explanation of clinical findings (Please Explain) ( ) Unable to determine (Please Define) ( ) Need to Discuss The medical record reflects the following clinical findings, treatment, and risk factors. Clinical Indicators: HCAP, Leukocytosis 14.26, Treatment: IV Zosyn, IV Vancomycin, Risk Factors: Age, HCAP Please clarify and document your clinical opinion in the progress notes and discharge summary. Terms such as "probable", "suspected", "likely", "questionable", "possible", or "still to be ruled out" are acceptable. IF IN AGREEMENT, YOU MUST DOCUMENT ABOVE DIAGNOSTIC STATEMENT IN DAILY PROGRESS NOTES AND DISCHARGE SUMMARY. This document is not part of the patient's record. Thank You, Manuel Salinas RN [phone]
[2017-12-18] MEDS ORDERED: SODIUM CHLORIDE 0.9% 500ML 500 ML IV SCH (11:15)
[2017-12-18] MEDS: WARFARIN SOD 5 MG TAB PO SCH (16:14)
--- NOTE | 2017-12-18 17:23 | DIAGNOSTIC IMAGING REPORT ---
CHEST ONE VIEW PORTABLE CLINICAL HISTORY: worsening SOB, known pneumonia. COMPARISON STUDY: 12/17/2017 FINDINGS: The heart is normal in size. There is underlying pulmonary emphysema. There are progressive left mid and lower lung zone airspace opacities consistent with a worsening pneumonia. There is blunting of the left lateral costophrenic angle consistent with a small left pleural effusion.[ IMPRESSION: 1. Emphysema 2. Slight progression in the left mid and lower lung zone airspace opacities consistent with pneumonia 3. Small left pleural effusion Electronically signed by: David Ku M.D. 12/18/2017 5:22 PM Dictated Date/Time: 12/18/2017 5:21 PM
[2017-12-18] MEDS: SERTRALINE HCL 100 MG TAB PO SCH (20:57)
[2017-12-18] MEDS: LORAZEPAM 0.5 MG TAB PO PRN (20:57)
[2017-12-18] MEDS: ACETAMINOPHEN 325 MG TAB PO PRN (20:58)
--- NOTE | 2017-12-18 20:58 | Progress Note ---
Medicine Progress Note Date & Time of Visit: Dec 18, 2017 at 12:32. Subjective 62 yo M prior smoker who presents with worsening swelling and redness in his RLE and was found to have L sided pneumonia after being discharged from the hospital last week. Workup also revealed evidence of a UTI, however, patient denies any UTI symptoms, fevers, chills or flank pain at this time. He is fatigued from being up all night and states that his breathing was more labored this morning but is better now. He denies any pain in his legs. -tolerating PO -mentating well -fatigued because he didn't get any sleep last night. Objective Last 8 Hrs Date Time Temp Pulse Resp B/P (MAP) Pulse Ox O2 Delivery O2 Flow Rate FiO2 12/18/17 12:01 94 Nasal Cannula 4.0 12/18/17 12:01 94 Nasal Cannula 4.0 12/18/17 11:35 62 16 98 Nasal Cannula 4.0 12/18/17 11:17 37.2 96 20 89/51 (64) 96 12/18/17 11:10 37.2 96 20 89/51 (64) 96 12/18/17 08:01 94 Nasal Cannula 4.0 12/18/17 08:01 94 Nasal Cannula 4.0 12/18/17 07:49 37.2 95 20 114/62 (79) 94 12/18/17 07:38 95 16 98 Nasal Cannula 4.0 Physical Exam: GEN: WNWD, in no acute distress, alert and appropriate but is ill-appearing HEENT: NC/AT, normal sclerae, MMM CARDIO: reg rate, S1/2 heard without m/g/r LUNGS: CTA bilaterally, no crackles, rales or wheezes, good diaphragmatic excursion ABD: soft, non-tender, non-distended, no rebound or guarding, +BS EXTREMITY: significant bilateral lymphedema with seeping wounds that are covered with dry dressings. Clear increased erythema, swelling and warmth in RLE with no progression of cellulitis since yesterday. NEURO: CN 2-12 grossly intact MUSC: appears generally weak and deconditioned. Moves all extremities equally, no gross focal deficits. SKIN: warm and dry Laboratory Results: 12/18/17 05:28 Red Blood Count 4.11, Mean Corpuscular Volume 92.9, Mean Corpuscular Hemoglobin 28.7, Mean Corpuscular Hemoglobin Concent 30.9, Mean Platelet Volume 8.0, Neutrophils (%) (Auto) 89.7, Lymphocytes (%) (Auto) 4.5, Monocytes (%) (Auto) 5.0, Eosinophils (%) (Auto) 0.3, Basophils (%) (Auto) 0.1, Neutrophils # (Auto) 16.25, Lymphocytes # (Auto) 0.82, Monocytes # (Auto) 0.91, Eosinophils # (Auto) 0.06, Basophils # (Auto) 0.02 12/18/17 05:28 Test 12/17/17 09:30 12/17/17 10:00 12/17/17 11:40 12/17/17 12:15 Total Bilirubin 0.6 mg/dl (0.2-1) Direct Bilirubin 0.2 mg/dl (0-0.2) Aspartate Amino Transf (AST/SGOT) 47 U/L (15-37) Alanine Aminotransferase (ALT/SGPT) 110 U/L (12-78) Alkaline Phosphatase 78 U/L (45-117) Total Creatine Kinase 20 U/L (39-308) Creatine Kinase MB 1.1 ng/ml (0.5-3.6) Creatine Kinase MB Ratio 5.5 (0-3.0) Troponin I < 0.015 ng/ml (0-0.045) C-Reactive Protein 13.00 mg/dl (0-0.29) Pro-B-Type Natriuretic Peptide 279 pg/ml (0-900) Total Protein 6.8 gm/dl (6.4-8.2) Albumin 2.3 gm/dl (3.4-5.0) Procalcitonin 0.10 ng/ml (0-0.5) Lactic Acid Level 1.0 mmol/L (0.4-2.0) Urine Color DK YELLOW Urine Appearance CLOUDY (CLEAR) Urine pH 5.5 (4.5-7.5) Urine Specific [place] 1.024 (1.000-1.030) Urine Protein NEG (NEG) Urine Glucose (UA) NEG (NEG) Urine Ketones NEG (NEG) Urine Occult Blood 2+ (NEG) Urine Nitrite POS (NEG) Urine Bilirubin NEG (NEG) Urine Urobilinogen NEG (NEG) Urine Leukocyte Esterase LARGE (NEG) Urine WBC (Auto) >30 /hpf (0-5) Urine RBC (Auto) 0-4 /hpf (0-4) Urine Hyaline Casts (Auto) 10-30 /lpf (0-5) Urine Epithelial Cells (Auto) 0-5 /lpf (0-5) Urine Bacteria (Auto) 4+ (NEG) Influenza Type A (RT-PCR) Neg for Influ A (NEG) Influenza Type B (RT-PCR) Neg for Influ B (NEG) Test 12/18/17 05:28 White Blood Count 18.14 K/uL (4.8-10.8) Red Blood Count 4.11 M/uL (4.7-6.1) Hemoglobin 11.8 g/dL (14.0-18.0) Hematocrit 38.2 % (42-52) Mean Corpuscular Volume 92.9 fL (80-100) Mean Corpuscular Hemoglobin 28.7 pg (25-34) Mean Corpuscular Hemoglobin Concent 30.9 g/dl (32-36) Platelet Count 214 K/uL (130-400) Mean Platelet Volume 8.0 fL (7.4-10.4) Neutrophils (%) (Auto) 89.7 % Lymphocytes (%) (Auto) 4.5 % Monocytes (%) (Auto) 5.0 % Eosinophils (%) (Auto) 0.3 % Basophils (%) (Auto) 0.1 % Neutrophils # (Auto) 16.25 K/uL (1.4-6.5) Lymphocytes # (Auto) 0.82 K/uL (1.2-3.4) Monocytes # (Auto) 0.91 K/uL (0.11-0.59) Eosinophils # (Auto) 0.06 K/uL (0-0.5) Basophils # (Auto) 0.02 K/uL (0-0.2) RDW Standard Deviation 45.8 fL (36.4-46.3) RDW Coefficient of Variation 13.5 % (11.5-14.5) Immature Granulocyte % (Auto) 0.4 % Immature Granulocyte # (Auto) 0.08 K/uL (0.00-0.02) Prothrombin Time 16.4 SECONDS (9.0-12.0) Prothromb Time International Ratio 1.6 (0.9-1.1) Anion Gap 4.0 mmol/L (3-11) Est Creatinine Clear Calc Drug Dose 114.7 ml/min Estimated GFR () 105.7 Estimated GFR (Non- 91.2 BUN/Creatinine Ratio 20.8 (10-20) Calcium Level 8.1 mg/dl (8.5-10.1) Magnesium Level 2.0 mg/dl (1.8-2.4) Date/Time Source Procedure Growth Status 12/17/17 10:00 Blood Blood Culture Pending Received 12/17/17 12:15 Nasal MRSA DNA Surveillance Screen - Final Specimen Negative for MRSA by DNA Probe Complete 12/17/17 15:55 Sputum Expectorated Sputum Gram Stain - Final Resulted 12/17/17 15:55 Sputum Expectorated Sputum Sputum Culture - Preliminary LIGHT NORMAL SHERRILL Present, Final Rep... Resulted 12/17/17 11:40 Urine , Clean Catch Urine Culture - Preliminary Gram Negative Bacilli Gram Negative Bacilli#2 Resulted Last 24 Hours Test 12/18/17 05:28 White Blood Count 18.14 K/uL Red Blood Count 4.11 M/uL Hemoglobin 11.8 g/dL Hematocrit 38.2 % Mean Corpuscular Volume 92.9 fL Mean Corpuscular Hemoglobin 28.7 pg Mean Corpuscular Hemoglobin Concent 30.9 g/dl Platelet Count 214 K/uL Mean Platelet Volume 8.0 fL Neutrophils (%) (Auto) 89.7 % Lymphocytes (%) (Auto) 4.5 % Monocytes (%) (Auto) 5.0 % Eosinophils (%) (Auto) 0.3 % Basophils (%) (Auto) 0.1 % Neutrophils # (Auto) 16.25 K/uL Lymphocytes # (Auto) 0.82 K/uL Monocytes # (Auto) 0.91 K/uL Eosinophils # (Auto) 0.06 K/uL Basophils # (Auto) 0.02 K/uL RDW Standard Deviation 45.8 fL RDW Coefficient of Variation 13.5 % Immature Granulocyte % (Auto) 0.4 % Immature Granulocyte # (Auto) 0.08 K/uL Prothrombin Time 16.4 SECONDS Prothromb Time International Ratio 1.6 Sodium Level 136 mmol/L Potassium Level 4.4 mmol/L Chloride Level 100 mmol/L Carbon Dioxide Level 32 mmol/L Anion Gap 4.0 mmol/L Blood Urea Nitrogen 19 mg/dl Creatinine 0.90 mg/dl Est Creatinine Clear Calc Drug Dose 114.7 ml/min Estimated GFR () 105.7 Estimated GFR (Non- 91.2 BUN/Creatinine Ratio 20.8 Random Glucose 92 mg/dl Calcium Level 8.1 mg/dl Magnesium Level 2.0 mg/dl Date/Time Source Procedure Growth Status 12/17/17 15:55 Sputum Expectorated Sputum Gram Stain - Final Resulted 12/17/17 15:55 Sputum Expectorated Sputum Sputum Culture - Preliminary LIGHT NORMAL SHERRILL Present, Final Rep... Resulted Diagnostic Imaging: CHEST ONE VIEW PORTABLE CLINICAL HISTORY: worsening SOB, known pneumonia. COMPARISON STUDY: 12/17/2017 FINDINGS: The heart is normal in size. There is underlying pulmonary emphysema. There are progressive left mid and lower lung zone airspace opacities consistent with a worsening pneumonia. There is blunting of the left lateral costophrenic angle consistent with a small left pleural effusion.[ IMPRESSION: 1. Emphysema 2. Slight progression in the left mid and lower lung zone airspace opacities consistent with pneumonia 3. Small left pleural effusion Assessment & Plan 62 yo M prior smoker who presents with worsening swelling and redness in his RLE and was found to have L sided pneumonia after being discharged from the hospital last week. Workup also revealed evidence of a UTI, however, patient denies any UTI symptoms, fevers, chills or flank pain at this time. He is fatigued from being up all night and states that his breathing was more labored this morning but is better now. He denies any pain in his legs. 1. HCAP (Suspected MRSA or Gram negative pneumonia treated with combination IV Zosyn and Vancomycin therapy)-L lung pneumonia, pt requiring slightly higher that baseline supplemental oxygen (2L NC at home). He was recently admitted for a COPD exacerbation , discharged last week on a prednisone taper which he has completed. He denies cough, fevers, chills, body aches, sick contacts or shortness of breath. Blood and sputum cultures pending. Cover broad with Vanc and Zosyn as patient was recently hospitalized. Legionella antigen pending. Flu PCR negative. Will narrow therapy pending culture results and clinical response. 2. RLE cellulitis-pt with bilateral chronic lymphedema with wounds that are seeping and open. No concepcion ulcers noted. Erythema, warmth and swelling noted in RLE but is stable compared to admission. Vanc/Zosyn will cover an cellulitis here. DVT was considered, however, patient has been supratherapeutic on his coumadin since his recent hospitalization making this less likely. 3. Chronic lymphedema-wound care consulted. 4. Afib-chronic, anticoagulated on coumadin with admission INR 1.8. Rhythm control with sotalol and rate controlled with diltiazem. 5. COPD-appears stable after recent exacerbation last week. Will continue baseline prednisone 10mg PO daily, supplemental oxygen and duonebs in setting of pneumonia above. 6. Depression/Anxiety-zoloft, recently increased to 100 HS 7. Leukocytosis-likely 2/2 infection. DVT proph-coumadin/Lovenox is INR<2 Full Code Dispo-to telemetry Lianet Chino DO [facility] Hospitalist Current Inpatient Medications: Current Inpatient Medications Medications (Trade) Dose Ordered Sig/Denisse Route Start Time Stop Time Status Last Admin Dose Admin Acetaminophen (Tylenol Tab) 650 mg Q4H PRN PO 12/17/17 11:30 01/16/18 11:29 12/17/17 20:12 650 MG Ondansetron HCl (Zofran Inj) 4 mg Q6H PRN IV 12/17/17 11:30 01/16/18 11:29 Polyethylene (Miralax Powder Packet) 17 gm DAILY PRN PO 12/17/17 11:30 01/16/18 11:29 Vancomycin HCl 1750 mg/Sodium Chloride 535 ml @ 200 mls/hr Q12H IV 12/17/17 18:00 12/24/17 09:59 12/18/17 06:23 200 MLS/HR Piperacillin Sod/ Tazobactam Sod 3.375 gm/Dextrose 115 ml @ 28 mls/hr Q8H IV 12/17/17 16:00 12/24/17 15:59 12/18/17 08:11 28 MLS/HR Miscellaneous Information (Consult) 1 ea UD PRN N/A 12/17/17 11:30 01/16/18 11:29 Miscellaneous Information (Consult) 1 ea UD PRN N/A 12/17/17 11:30 01/16/18 11:29 Diltiazem HCl (TIAzac CAP) 180 mg DAILY PO 12/18/17 09:00 01/17/18 08:59 12/18/17 08:09 180 MG Lorazepam (Ativan Tab) 0.5 mg TID PRN PO 12/17/17 11:30 01/16/18 11:29 12/17/17 20:12 0.5 MG Nitroglycerin (Nitrostat Tab) 0.4 mg PRN UT 12/17/17 11:30 01/16/18 11:29 Sertraline HCl (Zoloft Tab) 100 mg HS PO 12/17/17 21:00 01/16/18 20:59 12/17/17 20:11 100 MG Sotalol HCl (Betapace Tab) 80 mg BID PO 12/17/17 21:00 01/16/18 20:59 12/18/17 08:08 80 MG Warfarin Sodium (Coumadin Tab) 5 mg DAILY@1600 PO 12/17/17 16:00 01/16/18 15:59 12/17/17 16:00 5 MG Miscellaneous Information (Order Awaiting Action) 1 ea QS N/A 12/17/17 16:00 01/16/18 15:59 Furosemide (Lasix Tab) 40 mg QAM PO 12/18/17 09:00 01/17/18 08:59 12/18/17 08:08 40 MG Potassium Chloride (Klor-Con M10) 10 meq DAILY PO 12/18/17 09:00 01/17/18 08:59 12/18/17 08:08 10 MEQ Saccharomyces Boulardii (Florastor Cap) 250 mg DAILY PO 12/18/17 09:00 01/17/18 08:59 12/18/17 08:08 250 MG Albuterol/ Ipratropium (Duoneb) 3 ml QIDR INH 12/17/17 16:00 01/16/18 15:59 12/18/17 11:35 3 ML Tramadol HCl (Ultram Tab) 50 mg Q4H PRN PO 12/17/17 14:00 01/16/18 13:59 Enoxaparin Sodium (Lovenox Inj) 40 mg QAM SQ 12/18/17 09:00 01/17/18 08:59 12/18/17 08:16 40 MG Miscellaneous Information (Pending Order) 1 ea DAILY@0830 N/A 12/19/17 08:30 01/18/18 08:29 Sodium Chloride 500 ml @ 250 mls/hr Q2H IV 12/18/17 11:15 12/18/17 13:14 12/18/17 11:51 250 MLS/HR
[2017-12-19] VITALS (18 sets, daily range): BP systolic 83–120; BP diastolic 56–75; PULSE 84–99; TEMP 35.6–37.3; O2SAT 90–98
[2017-12-19] MEDS: PIPERACILL/TAZOBAC IV 3.375 GM in DEXTROSE 5% 100ML 100 ML IV SCH ×4 (00:43→23:59)
[2017-12-19] MEDS: VANCOMYCIN INJ 1,750 MG in SODIUM CHLORIDE 0.9% 500ML 500 ML IV SCH (05:17)
[2017-12-19 05:52] LABS: BASO % 0.2 %; BASO ABS # 0.03 K/uL (0-0.2); EOS ABS # 0.15 K/uL (0-0.5); HEMATOCRIT 37.4 % (42-52); HEMOGLOBIN 11.5 g/dL (14.0-18.0); IG# 0.11 K/uL (0.00-0.02); LYMPH % 5.6 %; LYMPH ABS # 0.84 K/uL (1.2-3.4); MEAN CELL VOLUME 93.5 fL (80-100); MEAN CORPUSCULAR HEMOGLOBIN 28.8 pg (25-34); MEAN CORPUSCULAR HGB CONC 30.7 g/dl (32-36); MEAN PLATELET VOLUME 8.1 fL (7.4-10.4); MONO % 6.3 %; MONO ABS # 0.95 K/uL (0.11-0.59); NEUT % 86.2 %; NEUT ABS # 13.04 K/uL (1.4-6.5); PLATELET COUNT 183 K/uL (130-400); RED CELL DISTRIBUTION WIDTH CV 13.7 % (11.5-14.5); RED CELL DISTRIBUTION WIDTH SD 47.3 fL (36.4-46.3); WHITE BLOOD COUNT 15.12 K/uL (4.8-10.8)
[2017-12-19 06:23] LABS: CALCIUM 8.1 mg/dl (8.5-10.1); CREATININE 0.87 mg/dl (0.60-1.40); POTASSIUM 3.9 mmol/L (3.5-5.1)
[2017-12-19 06:26] LABS: INR 1.2 (0.9-1.1)
[2017-12-19] MEDS: ALBUT/IPRATROP 3MG/0.5MG NEB 3 ML VIAL INH SCH ×4 (07:10→19:01)
[2017-12-19] MEDS: DILTIAZEM HCL (TIAzac) 180 MG CAPCR PO SCH (09:00)
[2017-12-19] MEDS: SACCHAROMYCES BOUL (FLORASTOR) 250 MG CAP PO SCH (09:49)
[2017-12-19] MEDS: SOTALOL HCL 80 MG TAB PO SCH ×2 (09:49→20:48)
[2017-12-19] MEDS: POTASSIUM CHLORIDE 10 MEQ TABCR PO SCH (09:50)
[2017-12-19] MEDS: FUROSEMIDE 40 MG TAB PO SCH (09:50)
[2017-12-19] MEDS: ENOXAPARIN 40 MG/0.4 ML SYR SQ SCH (09:51)
--- NOTE | 2017-12-19 10:13 | Pharmacy Progress Note ---
Pharmacy Abx Dose Short Note Date of Service Dec 19, 2017. Assessment & Plan Assessment 62 year old male receiving VANC/ZOSYN for treatment of HCAP. Only positive culture is klebsiella in urine thus far Day # 3/7 of antimicrobial therapy. Plan Vancomycin * Trough level of 21.2 mcg/mL is slightly supratherapeutic. * Change to 1750 mg IV every 14 hours * Trough or random level ordered for: 12/22/17 @0400. Pharmacy will continue to follow and will adjust dose/frequency as necessary. Thank you.
[2017-12-19] MEDS ORDERED: WARFARIN SOD 5 MG TAB PO ONE (16:00)
--- NOTE | 2017-12-19 18:21 | Progress Note ---
Medicine Progress Note Date & Time of Visit: Dec 19, 2017 at 18:21 . Subjective CC: Follow-up visit for multiple problems. HPI: Chilled. No fever today. Persistent congested cough. Experiencing dyspnea on exertion. No nausea, vomiting, diarrhea. Voiding without difficulty; no dysuria. Legs feel better. Chronic lymphedema about the same. ROS: General- as noted above in HPI Resp- as noted above in HPI Cardiac- as noted above in HPI GI- as noted above in HPI - as noted above in HPI . Objective Last 8 Hrs Date Time Temp Pulse Resp B/P (MAP) Pulse Ox O2 Delivery O2 Flow Rate FiO2 12/19/17 16:14 Nasal Cannula 3.0 12/19/17 15:33 36.2 20 83/66 (72) 98 Nasal Cannula 3.0 12/19/17 15:10 96 18 94 Nasal Cannula 2.0 12/19/17 14:17 Nasal Cannula 3.0 12/19/17 12:12 36.3 84 22 102/69 (80) 97 Nasal Cannula 3.0 12/19/17 12:03 97 Nasal Cannula 3.0 12/19/17 12:01 94 Nasal Cannula 3.0 12/19/17 11:05 88 18 97 Nasal Cannula 3.0 Physical Exam: General- lying in bed; appears to be chronically ill; no acute distress Lungs- few scattered rhonchi; no respiratory distress Cardiovascular- RRR; no gallop; no JVD Abdomen- + bowel sounds, soft, nontender Extremities- no cyanosis; legs bandaged; marked lymphedema of legs R > L. Neuro- alert, oriented Skin- warm & dry . Laboratory Results: Last 24 Hours Test 12/19/17 05:20 White Blood Count 15.12 K/uL Red Blood Count 4.00 M/uL Hemoglobin 11.5 g/dL Hematocrit 37.4 % Mean Corpuscular Volume 93.5 fL Mean Corpuscular Hemoglobin 28.8 pg Mean Corpuscular Hemoglobin Concent 30.7 g/dl Platelet Count 183 K/uL Mean Platelet Volume 8.1 fL Neutrophils (%) (Auto) 86.2 % Lymphocytes (%) (Auto) 5.6 % Monocytes (%) (Auto) 6.3 % Eosinophils (%) (Auto) 1.0 % Basophils (%) (Auto) 0.2 % Neutrophils # (Auto) 13.04 K/uL Lymphocytes # (Auto) 0.84 K/uL Monocytes # (Auto) 0.95 K/uL Eosinophils # (Auto) 0.15 K/uL Basophils # (Auto) 0.03 K/uL RDW Standard Deviation 47.3 fL RDW Coefficient of Variation 13.7 % Immature Granulocyte % (Auto) 0.7 % Immature Granulocyte # (Auto) 0.11 K/uL Prothrombin Time 12.7 SECONDS Prothromb Time International Ratio 1.2 Sodium Level 137 mmol/L Potassium Level 3.9 mmol/L Chloride Level 99 mmol/L Carbon Dioxide Level 33 mmol/L Anion Gap 5.0 mmol/L Blood Urea Nitrogen 15 mg/dl Creatinine 0.87 mg/dl Est Creatinine Clear Calc Drug Dose 118.6 ml/min Estimated GFR () 107.2 Estimated GFR (Non- 92.5 BUN/Creatinine Ratio 16.8 Random Glucose 90 mg/dl Calcium Level 8.1 mg/dl Vancomycin Level Trough 21.2 mcg/ml Assessment & Plan PNEUMONIA, HEALTH CARE ACQUIRED (present on admission) Had cough at time of admission. Influenza PCR negative. Chest x-ray showed left mid and lower lung infiltrates. Blood cultures obtained (negative to date). Urine legionella Ag neg. Receiving IV vancomycin, piperacillin / tazobactam. Afebrile. Oxygenating well on NC. UTI (present on admission) UA on admission showed nitrites, leukocyte esterase, WBC's, bacterial. Urine culture growing 2 sp of Klebsiella pneumoniae. First organism sensitive to all antibiotics tested except for nitrofurantoin. Sensitivities for second organism pending. Continue IV piperacillin / tazobactam. CELLULITIS RLE (present on admission) Underlying marked lymphedema with ulcers. Wound Care consulted. IV vancomycin, piperacillin / tazobactam. CHRONIC LYMPHEDEMA Wound Care consulted. ATRIAL FIBRILLATION Chronic. Continue sotalol, diltiazem, warfarin. COPD Exacerbation secondary to pneumonia. Continue O2, nebs, steroids. VTE PROPHYLAXIS Continue warfarin, titrate dose. Ambulate as able. DISPOSITION To be determined. Internal Medicine follow-up with Dr. Jiménez. . Current Inpatient Medications: Current Inpatient Medications Medications (Trade) Dose Ordered Sig/Denisse Route Start Time Stop Time Status Last Admin Dose Admin Acetaminophen (Tylenol Tab) 650 mg Q4H PRN PO 12/17/17 11:30 01/16/18 11:29 12/18/17 20:58 650 MG Ondansetron HCl (Zofran Inj) 4 mg Q6H PRN IV 12/17/17 11:30 01/16/18 11:29 Polyethylene (Miralax Powder Packet) 17 gm DAILY PRN PO 12/17/17 11:30 01/16/18 11:29 Piperacillin Sod/ Tazobactam Sod 3.375 gm/Dextrose 115 ml @ 28 mls/hr Q8H IV 12/17/17 16:00 12/24/17 15:59 12/19/17 16:00 28 MLS/HR Miscellaneous Information (Consult) 1 ea UD PRN N/A 12/17/17 11:30 01/16/18 11:29 Miscellaneous Information (Consult) 1 ea UD PRN N/A 12/17/17 11:30 01/16/18 11:29 Diltiazem HCl (TIAzac CAP) 180 mg DAILY PO 12/18/17 09:00 01/17/18 08:59 12/18/17 08:09 180 MG Lorazepam (Ativan Tab) 0.5 mg TID PRN PO 12/17/17 11:30 01/16/18 11:29 12/18/17 20:57 0.5 MG Nitroglycerin (Nitrostat Tab) 0.4 mg PRN UT 12/17/17 11:30 01/16/18 11:29 Sertraline HCl (Zoloft Tab) 100 mg HS PO 12/17/17 21:00 01/16/18 20:59 12/18/17 20:57 100 MG Sotalol HCl (Betapace Tab) 80 mg BID PO 12/17/17 21:00 01/16/18 20:59 12/19/17 09:49 80 MG Warfarin Sodium (Coumadin Tab) 5 mg DAILY@1600 PO 12/17/17 16:00 01/16/18 15:59 Future Hold 12/18/17 16:14 5 MG Miscellaneous Information (Order Awaiting Action) 1 ea QS N/A 12/17/17 16:00 01/16/18 15:59 Furosemide (Lasix Tab) 40 mg QAM PO 12/18/17 09:00 01/17/18 08:59 12/19/17 09:50 40 MG Potassium Chloride (Klor-Con M10) 10 meq DAILY PO 12/18/17 09:00 01/17/18 08:59 12/19/17 09:50 10 MEQ Saccharomyces Boulardii (Florastor Cap) 250 mg DAILY PO 12/18/17 09:00 01/17/18 08:59 12/19/17 09:49 250 MG Albuterol/ Ipratropium (Duoneb) 3 ml QIDR INH 12/17/17 16:00 01/16/18 15:59 12/19/17 15:10 3 ML Tramadol HCl (Ultram Tab) 50 mg Q4H PRN PO 12/17/17 14:00 01/16/18 13:59 Enoxaparin Sodium (Lovenox Inj) 40 mg QAM SQ 12/18/17 09:00 01/17/18 08:59 12/19/17 09:51 40 MG Miscellaneous Information (Pending Order) 1 ea DAILY@0830 N/A 12/19/17 08:30 01/18/18 08:29 12/19/17 08:30 1 EA Vancomycin HCl 1750 mg/Sodium Chloride 535 ml @ 200 mls/hr Q14H IV 12/19/17 20:30 12/26/17 20:29
[2017-12-19] MEDS ORDERED: VANCOMYCIN INJ 1,750 MG in SODIUM CHLORIDE 0.9% 500ML 500 ML IV SCH (20:30)
[2017-12-19] MEDS: SERTRALINE HCL 100 MG TAB PO SCH (20:49)
[2017-12-19] MEDS: LORAZEPAM 0.5 MG TAB PO PRN (20:52)
[2017-12-19] MEDS ORDERED: ENOXAPARIN 40 MG/0.4 ML SYR SQ ONE (23:30)
[2017-12-20] VITALS (15 sets, daily range): BP systolic 83–103; BP diastolic 50–70; PULSE 67–98; TEMP 36.6–37.6; O2SAT 92–98
[2017-12-20] MEDS: ACETAMINOPHEN 325 MG TAB PO PRN
[2017-12-20 06:09] LABS: INR 1.9 (0.9-1.1)
[2017-12-20] MEDS ORDERED: ALBUT/IPRATROP 3MG/0.5MG NEB 3 ML VIAL INH STA (06:21)
[2017-12-20 06:25] LABS: CALCIUM 8.4 mg/dl (8.5-10.1); CREATININE 1.69 mg/dl (0.60-1.40); POTASSIUM 4.1 mmol/L (3.5-5.1)
[2017-12-20] MEDS ORDERED: ALBUT/IPRATROP 3MG/0.5MG NEB 3 ML VIAL INH PRN (06:30)
[2017-12-20] MEDS ORDERED: METHYLPREDNISOLONE IV 40 MG in SYRINGE 0 ML IV ONE (06:45)
--- NOTE | 2017-12-20 06:59 | Progress Note ---
Internal Med Progress Note Date of Service: Dec 20, 2017. Provider Documentation: Made aware by RN of increased respiratory distress, increasing O2 requirement from 2L to 4L NC. Fever spike 3 AM CXR as per my interpretation slight improvement L infiltrate from previous, COPD serum crea 1.6 AP Worsening hypoxemic respiratory failure 2 to complicated pneumonia left Underlying steroid-dependent COPD (unclear why home prednisone on hold) Fever possibly from ARF, dehydration Supplemental O2 ABG now Solu-Medrol 1 dose now, nebs when necessary for COPD exacerbation Clarify steroid regimen with AM provider Hold daily Lasix for now. Monitor creatinine response IV fluids Will relay to AM provider. Vital Signs: Date Time Temp Pulse Resp B/P (MAP) Pulse Ox O2 Delivery O2 Flow Rate FiO2 12/20/17 07:06 94 98 21 12/20/17 07:05 94 16 98 BiPAP/CPAP 21 12/20/17 04:00 Nasal Cannula 2.0 12/20/17 03:35 37.6 91 23 100/65 (77) 94 BiPAP 12/20/17 00:00 Nasal Cannula 2.0 12/19/17 23:38 37.3 95 24 120/68 (85) 90 Nasal Cannula 2.0 12/19/17 22:42 86 95 2.0 12/19/17 20:25 36.9 97 18 91/57 (68) 92 Nasal Cannula 3.0 12/19/17 20:00 92 Nasal Cannula 2.0 12/19/17 19:03 99 16 94 Nasal Cannula 2.0 12/19/17 18:00 96/70 (79) 12/19/17 16:14 Nasal Cannula 3.0 12/19/17 16:00 98 Nasal Cannula 2.0 12/19/17 16:00 109/75 (86) 105/62 (76) 12/19/17 15:33 36.2 20 83/66 (72) 98 Nasal Cannula 3.0 12/19/17 15:10 96 18 94 Nasal Cannula 2.0 12/19/17 14:17 Nasal Cannula 3.0 12/19/17 12:12 36.3 84 22 102/69 (80) 97 Nasal Cannula 3.0 12/19/17 12:03 97 Nasal Cannula 3.0 12/19/17 12:01 94 Nasal Cannula 3.0 12/19/17 11:05 88 18 97 Nasal Cannula 3.0 12/19/17 08:52 Nasal Cannula 3.0 12/19/17 08:15 94 Nasal Cannula 3.0 12/19/17 08:08 85 99/66 (77) 94 Nasal Cannula 3.0 12/19/17 08:07 35.6 85 22 93/56 (68) 97 Nasal Cannula 3.0 Lab Results: Results Past 24 Hours Test 12/20/17 05:37 12/20/17 06:58 Range/Units Prothrombin Time 19.3 9.0-12.0 SECONDS Prothromb Time International Ratio 1.9 0.9-1.1 Sodium Level 136 136-145 mmol/L Potassium Level 4.1 3.5-5.1 mmol/L Chloride Level 97 98-107 mmol/L Carbon Dioxide Level 33 21-32 mmol/L Anion Gap 6.0 3-11 mmol/L Blood Urea Nitrogen 17 7-18 mg/dl Creatinine 1.69 0.60-1.40 mg/dl Est Creatinine Clear Calc Drug Dose 60.1 ml/min Estimated GFR () 49.4 Estimated GFR (Non- 42.6 BUN/Creatinine Ratio 10.2 10-20 Random Glucose 101 70-99 mg/dl Calcium Level 8.4 8.5-10.1 mg/dl Arterial Blood pH 7.38 7.35-7.45 Arterial Blood Partial Pressure CO2 54 35-46 mmHg Arterial Blood Partial Pressure O2 138 80-95 mm/Hg Arterial Blood HCO3 31 19-24 mmol/L Arterial Blood Oxygen Saturation 98.5 90-95 % Arterial Blood Base Excess 4.6 -9-1.8 mEq/L Arterial Blood Gas Delivery 4L Nino Test POS POS
[2017-12-20] MEDS ORDERED: SODIUM CHLORIDE 0.9% 1000ML 1,000 ML IV ONE (07:00)
[2017-12-20] MEDS: ALBUT/IPRATROP 3MG/0.5MG NEB 3 ML VIAL INH SCH ×4 (07:02→19:40)
--- NOTE | 2017-12-20 07:31 | DIAGNOSTIC IMAGING REPORT ---
CHEST ONE VIEW PORTABLE CLINICAL HISTORY: 62 years-old Male presenting with sob. TECHNIQUE: Portable upright AP view of the chest was obtained. COMPARISON: 12/18/2017. FINDINGS: Cardiomediastinal silhouette normal. And basilar predominant left lung opacity appears superimposed on reticular heterogeneous lung parenchyma. Mild hyperinflation of the lungs. Small left pleural effusion cannot be excluded. No large pneumothorax. Osseous structures normal. Upper abdomen normal. IMPRESSION: 1. Left mid to basilar pulmonary opacity consistent with pneumonia, unchanged. This is likely on a background of emphysema or chronic lung disease. This should be followed to resolution given the patient's potential underlying risk factors. 2. Small left pleural effusion. Findings unchanged from prior. Electronically signed by: Kyle Love M.D. 12/20/2017 7:30 AM Dictated Date/Time: 12/20/2017 7:28 AM
[2017-12-20] MEDS: PIPERACILL/TAZOBAC IV 3.375 GM in DEXTROSE 5% 100ML 100 ML IV SCH ×2 (08:41→15:46)
[2017-12-20] MEDS: SOTALOL HCL 80 MG TAB PO SCH ×2 (08:42→20:31)
[2017-12-20] MEDS: POTASSIUM CHLORIDE 10 MEQ TABCR PO SCH (08:43)
[2017-12-20] MEDS: SACCHAROMYCES BOUL (FLORASTOR) 250 MG CAP PO SCH (08:43)
[2017-12-20] MEDS: DILTIAZEM HCL (TIAzac) 180 MG CAPCR PO SCH (08:45)
[2017-12-20] MEDS: ENOXAPARIN 40 MG/0.4 ML SYR SQ SCH (08:47)
--- NOTE | 2017-12-20 14:01 | DIAGNOSTIC IMAGING REPORT ---
ULTRASOUND KIDNEYS AND BLADDER CLINICAL HISTORY: Acute renal injury. COMPARISON STUDY: No priors. TECHNIQUE: Real-time, grayscale, and color flow sonography of the kidneys and bladder is performed. Images are reviewed in the transverse and longitudinal planes. FINDINGS: Kidneys: The kidneys are normal in size and echotexture. The right kidney measures 11.7 cm in length and the left kidney measures 13.0 cm in length. There is no hydronephrosis. No shadowing renal calculi are identified. A 3.2 cm cyst is present in the left upper pole. There is no sonographic evidence of contour deforming renal mass lesion. No perinephric fluid is identified. Bladder: The bladder wall is thickened and trabeculated suggesting chronic obstruction. A small diverticulum is seen posteriorly on the right. Bilateral ureteral jets were seen. IMPRESSION: 1. The kidneys are normal in size and without hydronephrosis. 2. The appearance of the bladder is consistent with chronic outlet obstruction. A small diverticulum is noted. Electronically signed by: Eduardo Garcia M.D. 12/20/2017 2:00 PM Dictated Date/Time: 12/20/2017 1:58 PM
--- NOTE | 2017-12-20 17:31 | Nephrology Consultation ---
Nephrology Consultation Date of Consultation: Dec 20, 2017. Attending Physician: Dr Macdonald Requesting Physician: Dr Macdonald Reason for Consultation: KELY History of Present Illness 62 year old male admitted 12/17 w/ health care associated PNA, Klebsiella UTI, RLE cellulitis in setting of chronic BLE lymphedema now has acute renal failure. His baseline outpatient creatinine is 1.0-1.1. His creatinine was at baseline or better since presentation but this AM increased to 1.7. Of note admitted here 11/15-12/05 for LE cellulitis, acute on chronic respiratory failure attributed in part to A Fib w/ sotalol and coumadin started that admission; also d/c on steroid taper to stabilize at 10 mg daily until seen by pulmonary as outpt. Pt states he came to ER b/c was so weak, "could not get around." Note that sbp at hosp f/u visit was 90s systolic. Creative Consultant was called overnight to evaluate pt d/t increasing hypoxia (o2NC from 2L > 4L NC) and temp 37.6 (axillary) -- noted that creatinine was increased (he had been getting his outpt 40 mg daily po lasix dose). ABG was ok this am. As an outpatient, he takes lasix 40 mg po daily. He was started on nebs, given a dose of solumedrol, and started on NS at 60 mL hourly. His cellulitis/PNA are being treated w/ vancomycin/zosyn >> had 2 doses of 1750 mg vanco yesterday and one dose 2.5 gm on 12/17. Vanco trough yesterday AM was 21. UA at admission appears infected; cx grew 2 types of K pniae. Pt seen on rounds thsi am 1000; followed through day. Past Medical/Surgical History Medical Problems: (1) COPD with acute exacerbation Status: Acute (2) Dehydration Status: Acute (3) Hypoxia Status: Acute (4) Left lower lobe pneumonia Status: Acute (5) Malnutrition Status: Acute (6) Swelling of left extremity Status: Acute (7) Swelling of right extremity Status: Acute -severe COPD attributed to tobacco abuse, asbestosis on 2-3L at rest, 4-5L w/ exertion -atrial fibrillation on sotalol, coumadin, diltiazem -chronic BLE lymphedema w/ chronic BLE cellulitis Family History FH: cancer Lung disease Stroke Social History Smoking Status: Former Smoker Drug Use: none Marital Status: Occupation Status: disabled Allergies Coded Allergies: No Known Allergies (Unverified , 05/18/17) Medications Current Inpatient Medications Medications (Trade) Dose Ordered Sig/Denisse Route Start Time Stop Time Status Last Admin Dose Admin Acetaminophen (Tylenol Tab) 650 mg Q4H PRN PO 12/17/17 11:30 01/16/18 11:29 12/20/17 00:00 650 MG Ondansetron HCl (Zofran Inj) 4 mg Q6H PRN IV 12/17/17 11:30 01/16/18 11:29 Polyethylene (Miralax Powder Packet) 17 gm DAILY PRN PO 12/17/17 11:30 01/16/18 11:29 Piperacillin Sod/ Tazobactam Sod 3.375 gm/Dextrose 115 ml @ 28 mls/hr Q8H IV 12/17/17 16:00 12/24/17 15:59 12/20/17 08:41 28 MLS/HR Miscellaneous Information (Consult) 1 ea UD PRN N/A 12/17/17 11:30 01/16/18 11:29 Diltiazem HCl (TIAzac CAP) 180 mg DAILY PO 12/18/17 09:00 01/17/18 08:59 12/20/17 08:45 180 MG Lorazepam (Ativan Tab) 0.5 mg TID PRN PO 12/17/17 11:30 01/16/18 11:29 12/19/17 20:52 0.5 MG Nitroglycerin (Nitrostat Tab) 0.4 mg PRN UT 12/17/17 11:30 01/16/18 11:29 Sertraline HCl (Zoloft Tab) 100 mg HS PO 12/17/17 21:00 01/16/18 20:59 12/19/17 20:49 100 MG Sotalol HCl (Betapace Tab) 80 mg BID PO 12/17/17 21:00 01/16/18 20:59 12/20/17 08:42 80 MG Warfarin Sodium (Coumadin Tab) 5 mg DAILY@1600 PO 12/17/17 16:00 01/16/18 15:59 Future Hold 12/18/17 16:14 5 MG Miscellaneous Information (Order Awaiting Action) 1 ea QS N/A 12/17/17 16:00 01/16/18 15:59 Potassium Chloride (Klor-Con M10) 10 meq DAILY PO 12/18/17 09:00 01/17/18 08:59 12/20/17 08:43 10 MEQ Saccharomyces Boulardii (Florastor Cap) 250 mg DAILY PO 12/18/17 09:00 01/17/18 08:59 12/20/17 08:43 250 MG Albuterol/ Ipratropium (Duoneb) 3 ml QIDR INH 12/17/17 16:00 01/16/18 15:59 12/19/17 19:01 3 ML Tramadol HCl (Ultram Tab) 50 mg Q4H PRN PO 12/17/17 14:00 01/16/18 13:59 Enoxaparin Sodium (Lovenox Inj) 40 mg QAM SQ 12/18/17 09:00 01/17/18 08:59 12/20/17 08:47 40 MG Miscellaneous Information (Pending Order) 1 ea DAILY@0830 N/A 12/19/17 08:30 01/18/18 08:29 12/19/17 08:30 1 EA Albuterol/ Ipratropium (Duoneb) 3 ml Q2H PRN INH 12/20/17 06:30 01/19/18 06:29 Sodium Chloride 1,000 ml @ 60 mls/hr [id number] ONCE IV 12/20/17 07:00 12/20/17 23:39 12/20/17 08:40 60 MLS/HR Home Meds and Scripts Medications Dose Route/Sig Max Daily Dose Days Date Category Dose Instructions Guaifenesin Er (Guaifenesin) 600 Mg Tabcr 600 Mg PO Q12H PRN 12/17/17 Reported Azithromycin 250 Mg Tab 250 Mg PO DIRECTED 12/17/17 Reported *COPD RESCUE KIT* Prednisone 20 Mg Tab 40 Mg PO DIRECTED PRN 12/17/17 Reported *COPD RESCUE KIT* Tiazac (Diltiazem HCl) 180 Mg Capcr 180 Mg PO DAILY 12/17/17 Reported Jantoven (Warfarin Sodium) 5 Mg Tab 5 Mg PO QPM 12/17/17 Reported Nitrostat (Nitroglycerin) 0.4 Mg Tab 0.4 Mg UT PRN 12/17/[address] UNDER TONGUE EVERY 5 MINUTES NEEDED Sotalol Hcl 80 Mg Tab 80 Mg PO BID 90 12/17/17 Reported Zoloft (Sertraline HCl) 100 Mg Tab 100 Mg PO HS 12/17/17 Reported Prednisone 10 Mg Tab 10 Mg PO QAM 30 12/05/17 Rx 2 po daily for 5 days and then 1 po daily continue until changed by Pulmonary Lasix (Furosemide) 40 Mg Tab 40 Mg PO DAILY PRN 11/15/17 Reported Potassium Chloride Er (Potassium Chloride) 10 Meq Tab 10 Meq PO DAILY PRN 11/15/17 Reported Probiotic (Probiotic Product) 1 Tab Tab 1 Tab PO DAILY 11/15/17 Reported Duoneb (Ipratropium-Albuterol) 3 Ml Nebu 1 Treatment INH TID PRN 05/18/17 Reported Combivent Respimat (Ipratropium-Albuterol) 1 Aer Aer 1 Puff INH QID PRN 05/18/17 Reported Lorazepam 0.5 Mg Tab 0.5 Mg PO TID PRN 02/26/16 Reported Desloratadine 5 Mg Tab 5 Mg PO QAM 02/26/16 Reported Anoro Ellipta 62.5-25 Mcg/INH (Umeclidinium-Vilanterol) 1 Aer Aer 1 Puff INH QAM 02/26/16 Reported Oxygen Gas 2 Liters NA CONTINOUS 09/16/15 Reported Review of Systems Constitutional: + weakness, + fatigue, No fever Eyes: No worsening of vision ENT: No hearing loss Respiratory: + cough, + shortness of breath, + dyspnea on exertion, + dyspnea at rest, No wheezing Cardiac: + edema (improved per pt), No chest pain, No palpitations Abdomen: No pain, No nausea, No vomiting, No diarrhea, No constipation Musculoskeletal: No joint pain, No muscle pain Male : No dysuria, No incontinence, No hematuria Neuro: + balance problems Psych: No depression symptoms Heme: No abnormal bleeding/bruising Endo: + fatigue Skin: No rash, No itch, No new/changing skin lesions Physical Exam Date Time Temp Pulse Resp B/P (MAP) Pulse Ox O2 Delivery O2 Flow Rate FiO2 12/20/17 08:12 36.6 98 18 99/67 (78) 98 BiPAP 12/20/17 08:01 94 Nasal Cannula 4.0 12/20/17 07:06 94 98 21 12/20/17 07:05 94 16 98 BiPAP/CPAP 21 12/20/17 04:00 Nasal Cannula 2.0 12/20/17 03:35 37.6 91 23 100/65 (77) 94 BiPAP 12/20/17 00:00 Nasal Cannula 2.0 12/19/17 23:38 37.3 95 24 120/68 (85) 90 Nasal Cannula 2.0 12/19/17 22:42 86 95 2.0 12/19/17 20:25 36.9 97 18 91/57 (68) 92 Nasal Cannula 3.0 12/19/17 20:00 92 Nasal Cannula 2.0 12/19/17 19:03 99 16 94 Nasal Cannula 2.0 12/19/17 18:00 96/70 (79) 12/19/17 16:14 Nasal Cannula 3.0 12/19/17 16:00 98 Nasal Cannula 2.0 12/19/17 16:00 109/75 (86) 105/62 (76) 12/19/17 15:33 36.2 20 83/66 (72) 98 Nasal Cannula 3.0 12/19/17 15:10 96 18 94 Nasal Cannula 2.0 12/19/17 14:17 Nasal Cannula 3.0 12/19/17 12:12 36.3 84 22 102/69 (80) 97 Nasal Cannula 3.0 12/19/17 12:03 97 Nasal Cannula 3.0 12/19/17 12:01 94 Nasal Cannula 3.0 12/19/17 11:05 88 18 97 Nasal Cannula 3.0 General Appearance: WD/WN, no apparent distress, + cachetic (on 3L 02nc) Eyes: EOMI ENT: hearing grossly normal Neck: supple Respiratory/Chest: lungs clear, no respiratory distress, + decreased breath sounds, + crackles (fine lacy early insp crx BL) Cardiovascular: regular rate, rhythm, + pertinent finding (5+ edema L foot and 3+ to knee; 1-2+ R foot/leg) Abdomen: normal bowel sounds, non tender, soft, + pertinent finding (no wren) Extremities: + pedal edema Neurologic/Psych: alert, normal mood/affect, oriented x 3 Skin: no jaundice, warm/dry, no rash, + pertinent finding (wounds BL shins olya R) Diagnostics Last 24 Hours Test 12/20/17 05:37 12/20/17 06:58 Prothrombin Time 19.3 SECONDS Prothromb Time International Ratio 1.9 Sodium Level 136 mmol/L Potassium Level 4.1 mmol/L Chloride Level 97 mmol/L Carbon Dioxide Level 33 mmol/L Anion Gap 6.0 mmol/L Blood Urea Nitrogen 17 mg/dl Creatinine 1.69 mg/dl Est Creatinine Clear Calc Drug Dose 60.1 ml/min Estimated GFR () 49.4 Estimated GFR (Non- 42.6 BUN/Creatinine Ratio 10.2 Random Glucose 101 mg/dl Calcium Level 8.4 mg/dl Arterial Blood pH 7.38 Arterial Blood Partial Pressure CO2 54 mmHg Arterial Blood Partial Pressure O2 138 mm/Hg Arterial Blood HCO3 31 mmol/L Arterial Blood Oxygen Saturation 98.5 % Arterial Blood Base Excess 4.6 mEq/L Arterial Blood Gas Delivery 4L Nino Test POS Diagnostic Radiology: CXR L mid/base PNA w/ underlying emphysema renal u/s > trabeculated wall c/w chronic obstruction; unremarkable symmetric kidneys BL except for simple cyst Assessment & Plan 62 y/o M w/ severe COPD on 2-3L 02NC chronically and w/ chronic BL lymphedema, a fib recently started on sotalol and coumadin admitted with generalized weakness and creatinine at baseline of 0.9-1.1. Now with creatinine 1.7 this am Nonoliguric KELY > suspect ATN from subacute hypotension past week at least then w/ likely supratherapeutic vanco levels; interstitial nephritis also possible; cannot rule out glomerular issue (unlikely) w/o repeat UA (ordered) . u/s reassuring no obstruction -ordered CMP, random vanco level for am -d/w pharmacy for QI purposes >> abtx dosed by wt but much of this pt's weight is water, not lean body mass; ? if this could be incorporated in dosing schemes -daily bmp -had a day of IVF - would stop now this evening -hold lasix / use prn only -vanco stopped; will try to add level to labs this am Hypotension SBP runs 100s-110s as outpt; has been quite labile since admission but not infrequently in 90s systolic, some 70s; may relate to sx prompting his admission ; sbp was 92 at PCP prior to admission -primary service aware, looking to reduce diltiazem Chronic lymphedema -had NS at 60 ML hourly all day; will stop now -cont conservative measures/wrapping as appropriate/ elevation -hold lasix for now A fib/flutter; rate has been reasonably controlled. -asked pharmacy to adjust sotalol dose for renal function if needed Cellulitis/HCAP -on zosyn/vanco >> vanco stopped Appreciate consult; care coordinated w/ Dr. Macdonald
--- NOTE | 2017-12-20 20:16 | Progress Note ---
Medicine Progress Note Date & Time of Visit: Dec 20, 2017 at 09:10 . Subjective CC: Follow-up visit for multiple problems. HPI: Worsening dyspnea early this morning. Received neb and IV methylprednisolone with improvement. Uses BiPAP during the night + PRN. No fever. Persistent congested cough. No nausea, vomiting, diarrhea. Voiding without difficulty; no dysuria. Legs feel better. Chronic lymphedema about the same. ROS: General- as noted above in HPI Resp- as noted above in HPI Cardiac- as noted above in HPI GI- as noted above in HPI - as noted above in HPI . Objective Last 8 Hrs Date Time Temp Pulse Resp B/P (MAP) Pulse Ox O2 Delivery O2 Flow Rate FiO2 12/20/17 19:41 77 16 97 Nasal Cannula 4.0 12/20/17 16:21 36.8 76 20 95/61 (72) 97 Nasal Cannula 4.0 12/20/17 16:00 97 Nasal Cannula 4.0 12/20/17 15:17 84 18 94 Nasal Cannula 4.0 12/20/17 12:25 94 Nasal Cannula 4.0 12/20/17 12:25 92 Nasal Cannula 4.0 Physical Exam: General- lying in bed; no acute distress Lungs- few scattered rhonchi; rales left base; no respiratory distress Cardiovascular- RRR; no gallop; no JVD Abdomen- + bowel sounds, soft, nontender Extremities- no cyanosis; legs bandaged; lymphedema of lower extremities, R >> L. Neuro- alert, oriented Skin- warm & dry . Laboratory Results: Last 24 Hours Test 12/20/17 05:37 12/20/17 06:58 12/20/17 20:00 Prothrombin Time 19.3 SECONDS Prothromb Time International Ratio 1.9 Sodium Level 136 mmol/L Potassium Level 4.1 mmol/L Chloride Level 97 mmol/L Carbon Dioxide Level 33 mmol/L Anion Gap 6.0 mmol/L Blood Urea Nitrogen 17 mg/dl Creatinine 1.69 mg/dl Est Creatinine Clear Calc Drug Dose 60.1 ml/min Estimated GFR () 49.4 Estimated GFR (Non- 42.6 BUN/Creatinine Ratio 10.2 Random Glucose 101 mg/dl Calcium Level 8.4 mg/dl Arterial Blood pH 7.38 Arterial Blood Partial Pressure CO2 54 mmHg Arterial Blood Partial Pressure O2 138 mm/Hg Arterial Blood HCO3 31 mmol/L Arterial Blood Oxygen Saturation 98.5 % Arterial Blood Base Excess 4.6 mEq/L Arterial Blood Gas Delivery 4L Nino Test POS Assessment & Plan PNEUMONIA, HEALTH CARE ACQUIRED (present on admission) Had cough at time of admission. Influenza PCR negative. Chest x-ray showed left mid and lower lung infiltrates. Blood cultures obtained (negative to date). Urine legionella Ag neg. Receiving IV vancomycin, piperacillin / tazobactam. Stop vanco in light of KELY. Afebrile. Oxygenating well on NC. UTI (present on admission) UA on admission showed nitrites, leukocyte esterase, WBC's, bacterial. Urine culture growing 2 sp of Klebsiella pneumoniae. First organism sensitive to all antibiotics tested except for nitrofurantoin. Sensitivities for second organism pending. Continue IV piperacillin / tazobactam. CELLULITIS RLE (present on admission) Underlying marked lymphedema with ulcers. Wound Care consulted. IV vancomycin, piperacillin / tazobactam. CHRONIC LYMPHEDEMA Wound Care consulted. ATRIAL FIBRILLATION Chronic. Hold diltiazem in light of low blood pressures - discuss with Cardiology. Continue sotalol, warfarin. COPD Exacerbation secondary to pneumonia. Finishing recent course of prednisone, but not on long-term Rx. Received IV methylprednisolone this morning. Start prednisone 40 mg daily tomorrow, then taper as tolerated. Continue O2, nebs. ACUTE KIDNEY INJURY Serum creatinine 0.87 --> 1.69. Hold furosemide. IV fluids. Check renal US. Check FE Na. Stop IV vancomycin. Consult Nephrology. VTE PROPHYLAXIS Continue warfarin, titrate dose. Ambulate as able. DISPOSITION To be determined. Internal Medicine follow-up with Dr. Jiménez. ADDENDUM: Lower extremities examined later during dressing changes. Erythema RLE below knees, no progression beyond markings noted on admission; erythema left leg with shallow ulceration posteriorly. . Current Inpatient Medications: Current Inpatient Medications Medications (Trade) Dose Ordered Sig/Denisse Route Start Time Stop Time Status Last Admin Dose Admin Acetaminophen (Tylenol Tab) 650 mg Q4H PRN PO 12/17/17 11:30 01/16/18 11:29 12/20/17 00:00 650 MG Ondansetron HCl (Zofran Inj) 4 mg Q6H PRN IV 12/17/17 11:30 01/16/18 11:29 Polyethylene (Miralax Powder Packet) 17 gm DAILY PRN PO 12/17/17 11:30 01/16/18 11:29 Piperacillin Sod/ Tazobactam Sod 3.375 gm/Dextrose 115 ml @ 28 mls/hr Q8H IV 12/17/17 16:00 12/24/17 15:59 12/20/17 15:46 28 MLS/HR Miscellaneous Information (Consult) 1 ea UD PRN N/A 12/17/17 11:30 01/16/18 11:29 Diltiazem HCl (TIAzac CAP) 180 mg DAILY PO 12/18/17 09:00 01/17/18 08:59 12/20/17 08:45 180 MG Lorazepam (Ativan Tab) 0.5 mg TID PRN PO 12/17/17 11:30 01/16/18 11:29 12/19/17 20:52 0.5 MG Nitroglycerin (Nitrostat Tab) 0.4 mg PRN UT 12/17/17 11:30 01/16/18 11:29 Sertraline HCl (Zoloft Tab) 100 mg HS PO 12/17/17 21:00 01/16/18 20:59 12/19/17 20:49 100 MG Sotalol HCl (Betapace Tab) 80 mg BID PO 12/17/17 21:00 01/16/18 20:59 12/20/17 08:42 80 MG Warfarin Sodium (Coumadin Tab) 5 mg DAILY@1600 PO 12/17/17 16:00 01/16/18 15:59 Future Hold 12/18/17 16:14 5 MG Miscellaneous Information (Order Awaiting Action) 1 ea QS N/A 12/17/17 16:00 01/16/18 15:59 Potassium Chloride (Klor-Con M10) 10 meq DAILY PO 12/18/17 09:00 01/17/18 08:59 12/20/17 08:43 10 MEQ Saccharomyces Boulardii (Florastor Cap) 250 mg DAILY PO 12/18/17 09:00 01/17/18 08:59 12/20/17 08:43 250 MG Albuterol/ Ipratropium (Duoneb) 3 ml QIDR INH 12/17/17 16:00 01/16/18 15:59 12/20/17 19:40 3 ML Tramadol HCl (Ultram Tab) 50 mg Q4H PRN PO 12/17/17 14:00 01/16/18 13:59 Enoxaparin Sodium (Lovenox Inj) 40 mg QAM SQ 12/18/17 09:00 01/17/18 08:59 12/20/17 08:47 40 MG Miscellaneous Information (Pending Order) 1 ea DAILY@0830 N/A 12/19/17 08:30 01/18/18 08:29 12/19/17 08:30 1 EA Albuterol/ Ipratropium (Duoneb) 3 ml Q2H PRN INH 12/20/17 06:30 01/19/18 06:29
[2017-12-20] MEDS: SERTRALINE HCL 100 MG TAB PO SCH (20:31)
[2017-12-20] MEDS: LORAZEPAM 0.5 MG TAB PO PRN (20:33)
[2017-12-21] VITALS (11 sets, daily range): BP systolic 92–121; BP diastolic 57–78; PULSE 69–76; TEMP 36.4–37.2; O2SAT 92–100
[2017-12-21] MEDS: PIPERACILL/TAZOBAC IV 3.375 GM in DEXTROSE 5% 100ML 100 ML IV SCH ×4 (00:16→23:50)
[2017-12-21 06:01] LABS: HEMATOCRIT 34.1 % (42-52); HEMOGLOBIN 10.6 g/dL (14.0-18.0); MEAN CELL VOLUME 92.4 fL (80-100); MEAN CORPUSCULAR HEMOGLOBIN 28.7 pg (25-34); MEAN CORPUSCULAR HGB CONC 31.1 g/dl (32-36); MEAN PLATELET VOLUME 8.6 fL (7.4-10.4); PLATELET COUNT 213 K/uL (130-400); RED CELL DISTRIBUTION WIDTH CV 13.7 % (11.5-14.5); RED CELL DISTRIBUTION WIDTH SD 46.4 fL (36.4-46.3); WHITE BLOOD COUNT 18.29 K/uL (4.8-10.8)
[2017-12-21 06:36] LABS: ALBUMIN 1.7 gm/dl (3.4-5.0); CALCIUM 8.4 mg/dl (8.5-10.1); CREATININE 3.14 mg/dl (0.60-1.40); POTASSIUM 4.2 mmol/L (3.5-5.1); URIC ACID 5.2 mg/dl (2.6-7.2)
[2017-12-21 06:43] LABS: INR 2.5 (0.9-1.1)
[2017-12-21] MEDS: ALBUT/IPRATROP 3MG/0.5MG NEB 3 ML VIAL INH SCH ×4 (07:09→20:16)
[2017-12-21] MEDS: ENOXAPARIN 40 MG/0.4 ML SYR SQ SCH (08:38)
[2017-12-21] MEDS: SOTALOL HCL 80 MG TAB PO SCH ×2 (08:40→21:04)
[2017-12-21] MEDS: SACCHAROMYCES BOUL (FLORASTOR) 250 MG CAP PO SCH (08:40)
[2017-12-21] MEDS: POTASSIUM CHLORIDE 10 MEQ TABCR PO SCH (08:40)
[2017-12-21] MEDS ORDERED: NURSING VERBAL MED ORDER ONE (08:45)
--- NOTE | 2017-12-21 10:46 | Nephrology Progress Note ---
Nephrology Progress Note Date of Service: Dec 21, 2017. Subjective feels edema, breathing a bit better. minimal uop >> states often happens when holding lasix; no n/v; needs 4L 02 today; bladder scans show no retention; SBP still low Objective Date Time Temp Pulse Resp B/P (MAP) Pulse Ox O2 Delivery O2 Flow Rate FiO2 12/21/17 07:29 36.4 71 16 104/69 (81) 97 4.0 12/21/17 07:12 70 16 95 Nasal Cannula 4.0 12/21/17 06:28 36.6 69 16 92/57 (69) 99 Nasal Cannula 4.0 12/21/17 04:03 37.2 69 19 93/63 (73) 98 Nasal Cannula 4.0 12/21/17 04:00 BiPAP 12/21/17 00:00 BiPAP 12/20/17 23:35 37.0 67 20 84/55 (65) 98 12/20/17 20:47 36.8 82 18 83/50 (61) 93 Nasal Cannula 4.0 12/20/17 20:00 93 Nasal Cannula 4.0 12/20/17 19:41 77 16 97 Nasal Cannula 4.0 12/20/17 16:21 36.8 76 20 95/61 (72) 97 Nasal Cannula 4.0 12/20/17 16:00 97 Nasal Cannula 4.0 12/20/17 15:17 84 18 94 Nasal Cannula 4.0 12/20/17 12:25 94 Nasal Cannula 4.0 12/20/17 12:25 92 Nasal Cannula 4.0 12/20/17 11:20 36.7 81 16 103/70 (81) 98 Nasal Cannula 12/20/17 10:41 Nasal Cannula 4.0 12/20/17 10:35 84 18 98 BiPAP/CPAP 4.0 Physical Exam: General Appearance: WD/WN, no apparent distress, + cachetic (on 4L 02nc) Eyes: EOMI ENT: hearing grossly normal Neck: supple Respiratory/Chest: lungs clear, no respiratory distress, + decreased breath sounds, + crackles (fine lacy early insp crx BL) Cardiovascular: regular rate, rhythm, + pertinent finding (5+ edema L foot and 3+ to knee; 1-2+ R foot/leg) Abdomen: normal bowel sounds, non tender, soft, + pertinent finding (no wren) Extremities: + pedal edema Neurologic/Psych: alert, normal mood/affect, oriented x 3 Skin: no jaundice, warm/dry, no rash, + pertinent finding (wounds BL shins olya R) Current Inpatient Medications Medications (Trade) Dose Ordered Sig/Denisse Route Start Time Stop Time Status Last Admin Dose Admin Acetaminophen (Tylenol Tab) 650 mg Q4H PRN PO 12/17/17 11:30 01/16/18 11:29 12/20/17 00:00 650 MG Ondansetron HCl (Zofran Inj) 4 mg Q6H PRN IV 12/17/17 11:30 01/16/18 11:29 Polyethylene (Miralax Powder Packet) 17 gm DAILY PRN PO 12/17/17 11:30 01/16/18 11:29 Piperacillin Sod/ Tazobactam Sod 3.375 gm/Dextrose 115 ml @ 28 mls/hr Q8H IV 12/17/17 16:00 12/24/17 15:59 12/21/17 00:16 28 MLS/HR Miscellaneous Information (Consult) 1 ea UD PRN N/A 12/17/17 11:30 01/16/18 11:29 Lorazepam (Ativan Tab) 0.5 mg TID PRN PO 12/17/17 11:30 01/16/18 11:29 12/20/17 20:33 0.5 MG Nitroglycerin (Nitrostat Tab) 0.4 mg PRN UT 12/17/17 11:30 01/16/18 11:29 Sertraline HCl (Zoloft Tab) 100 mg HS PO 12/17/17 21:00 01/16/18 20:59 12/20/17 20:31 100 MG Sotalol HCl (Betapace Tab) 80 mg BID PO 12/17/17 21:00 01/16/18 20:59 12/20/17 20:31 80 MG Warfarin Sodium (Coumadin Tab) 5 mg DAILY@1600 PO 12/17/17 16:00 01/16/18 15:59 Future Hold 12/18/17 16:14 5 MG Miscellaneous Information (Order Awaiting Action) 1 ea QS N/A 12/17/17 16:00 01/16/18 15:59 Potassium Chloride (Klor-Con M10) 10 meq DAILY PO 12/18/17 09:00 01/17/18 08:59 12/20/17 08:43 10 MEQ Saccharomyces Boulardii (Florastor Cap) 250 mg DAILY PO 12/18/17 09:00 01/17/18 08:59 12/20/17 08:43 250 MG Albuterol/ Ipratropium (Duoneb) 3 ml QIDR INH 12/17/17 16:00 01/16/18 15:59 12/21/17 07:09 3 ML Tramadol HCl (Ultram Tab) 50 mg Q4H PRN PO 12/17/17 14:00 01/16/18 13:59 Enoxaparin Sodium (Lovenox Inj) 40 mg QAM SQ 12/18/17 09:00 01/17/18 08:59 12/20/17 08:47 40 MG Miscellaneous Information (Pending Order) 1 ea DAILY@0830 N/A 12/19/17 08:30 01/18/18 08:29 12/19/17 08:30 1 EA Albuterol/ Ipratropium (Duoneb) 3 ml Q2H PRN INH 12/20/17 06:30 01/19/18 06:29 Prednisone (PredniSONE TAB) 40 mg DAILY PO 12/21/17 09:00 01/20/18 08:59 Last 24 Hours Test 12/20/17 20:00 12/21/17 05:26 Urine Color YELLOW Urine Appearance CLOUDY Urine pH 5.0 Urine Specific [place] 1.021 Urine Protein 1+ Urine Glucose (UA) NEG Urine Ketones NEG Urine Occult Blood NEG Urine Nitrite NEG Urine Bilirubin NEG Urine Urobilinogen NEG Urine Leukocyte Esterase SMALL Urine WBC (Auto) 5-10 /hpf Urine RBC (Auto) 0-4 /hpf Urine Hyaline Casts (Auto) 1-5 /lpf Urine Epithelial Cells (Auto) 20-30 /lpf Urine Bacteria (Auto) NEG Urine Yeast (Auto) Urine Random Creatinine 131.0 mg/dl Urine Random Sodium 16 mEq/L Urine Random Uric Acid 44.0 mg/dl White Blood Count 18.29 K/uL Red Blood Count 3.69 M/uL Hemoglobin 10.6 g/dL Hematocrit 34.1 % Mean Corpuscular Volume 92.4 fL Mean Corpuscular Hemoglobin 28.7 pg Mean Corpuscular Hemoglobin Concent 31.1 g/dl RDW Standard Deviation 46.4 fL RDW Coefficient of Variation 13.7 % Platelet Count 213 K/uL Mean Platelet Volume 8.6 fL Prothrombin Time 25.3 SECONDS Prothromb Time International Ratio 2.5 Sodium Level 135 mmol/L Potassium Level 4.2 mmol/L Chloride Level 99 mmol/L Carbon Dioxide Level 33 mmol/L Anion Gap 3.0 mmol/L Blood Urea Nitrogen 32 mg/dl Creatinine 3.14 mg/dl Est Creatinine Clear Calc Drug Dose 32.4 ml/min Estimated GFR () 23.3 Estimated GFR (Non- 20.1 BUN/Creatinine Ratio 10.2 Random Glucose 100 mg/dl Uric Acid 5.2 mg/dl Calcium Level 8.4 mg/dl Total Bilirubin 0.3 mg/dl Aspartate Amino Transf (AST/SGOT) 33 U/L Alanine Aminotransferase (ALT/SGPT) 49 U/L Alkaline Phosphatase 57 U/L Total Protein 6.0 gm/dl Albumin 1.7 gm/dl Globulin 4.3 gm/dl Albumin/Globulin Ratio 0.4 Random Vancomycin Level 21.3 mcg/ml Date/Time Source Procedure Growth Status 12/20/17 20:00 Urine , Clean Catch Urine Culture Pending Received Assessment & Plan 62 y/o M w/ severe COPD on 2-3L 02NC chronically and w/ chronic BL lymphedema, a fib recently started on sotalol and coumadin admitted with generalized weakness and creatinine at baseline of 0.9-1.1. Now with creatinine 1.7 12/20 >> 3.1 today Oliguric KELY > suspect ATN from subacute hypotension past week at least then w/ likely supratherapeutic vanco levels; interstitial nephritis also possible; cannot rule out glomerular issue (unlikely) as UA shows no infection or dipstick proteinuria . u/s reassuring no obstruction -ordered CMP, random vanco level for am >> albumin < 2 (!); vanco is 21 36 hrs after last dose -daily bmp -hold lasix / use prn only -cont to hold vanco >>>will d/w pharmacy about sotalol dose -next 48-72 hrs crucial as he may stabilize/improve or may tip toward needing dialysis; introduced this w/ him briefly; continue maximal supportive measures -will calculate FENa, FeUric Acid Hypotension SBP runs 100s-110s as outpt; has been quite labile since admission but not infrequently in 90s systolic, some 70s; may relate to sx prompting his admission ; sbp was 92 at PCP prior to admission -primary service aware> dilt stopped; remains on sotalol Chronic lymphedema -cont conservative measures/wrapping as appropriate/ elevation -hold lasix for now A fib/flutter; rate has been reasonably controlled. -asked pharmacy to adjust sotalol dose for renal function if needed Cellulitis/HCAP -on zosyn/vanco >> vanco stopped Appreciate consult
--- NOTE | 2017-12-21 20:51 | Progress Note ---
Medicine Progress Note Date & Time of Visit: Dec 21, 2017 at 16:30 . Subjective CC: Follow-up visit for multiple problems. HPI: No fever. Cough improved. No SOB. No CP. No nausea, vomiting, diarrhea. Voiding without difficulty; no dysuria. Legs feel better. Concerned about worsening renal function. ROS: General- as noted above in HPI Resp- as noted above in HPI Cardiac- as noted above in HPI GI- as noted above in HPI - as noted above in HPI . Objective Last 8 Hrs Date Time Temp Pulse Resp B/P (MAP) Pulse Ox O2 Delivery O2 Flow Rate FiO2 12/21/17 16:00 Nasal Cannula 3.0 12/21/17 15:11 36.5 76 18 98/64 (75) 98 2.0 12/21/17 14:33 76 16 92 Nasal Cannula 2.0 Physical Exam: General- sitting on side of bed; no acute distress Lungs- rales left base; no mild wheezing, no respiratory distress Cardiovascular- RRR; no gallop; no JVD Abdomen- + bowel sounds, soft, nontender Extremities- no cyanosis; legs bandaged; lymphedema of lower extremities, R >> L. Neuro- alert, oriented Skin- warm & dry . Laboratory Results: Last 24 Hours Test 12/21/17 05:26 White Blood Count 18.29 K/uL Red Blood Count 3.69 M/uL Hemoglobin 10.6 g/dL Hematocrit 34.1 % Mean Corpuscular Volume 92.4 fL Mean Corpuscular Hemoglobin 28.7 pg Mean Corpuscular Hemoglobin Concent 31.1 g/dl RDW Standard Deviation 46.4 fL RDW Coefficient of Variation 13.7 % Platelet Count 213 K/uL Mean Platelet Volume 8.6 fL Prothrombin Time 25.3 SECONDS Prothromb Time International Ratio 2.5 Sodium Level 135 mmol/L Potassium Level 4.2 mmol/L Chloride Level 99 mmol/L Carbon Dioxide Level 33 mmol/L Anion Gap 3.0 mmol/L Blood Urea Nitrogen 32 mg/dl Creatinine 3.14 mg/dl Est Creatinine Clear Calc Drug Dose 32.4 ml/min Estimated GFR () 23.3 Estimated GFR (Non- 20.1 BUN/Creatinine Ratio 10.2 Random Glucose 100 mg/dl Uric Acid 5.2 mg/dl Calcium Level 8.4 mg/dl Total Bilirubin 0.3 mg/dl Aspartate Amino Transf (AST/SGOT) 33 U/L Alanine Aminotransferase (ALT/SGPT) 49 U/L Alkaline Phosphatase 57 U/L Total Protein 6.0 gm/dl Albumin 1.7 gm/dl Globulin 4.3 gm/dl Albumin/Globulin Ratio 0.4 Random Vancomycin Level 21.3 mcg/ml Assessment & Plan PNEUMONIA, HEALTH CARE ACQUIRED (present on admission) Had cough at time of admission. Influenza PCR negative. Chest x-ray showed left mid and lower lung infiltrates. Blood cultures obtained (negative to date). Urine legionella Ag neg. Received IV vancomycin, piperacillin / tazobactam. Stopped vanco in light of KELY. Afebrile. Oxygenating well on NC. UTI (present on admission) UA on admission showed nitrites, leukocyte esterase, WBC's, bacterial. Urine culture grew Klebsiella pneumoniae sensitive to all antibiotics tested except for nitrofurantoin. Continue IV piperacillin / tazobactam. CELLULITIS RLE (present on admission) Underlying marked lymphedema with ulcers. Wound Care consulted. Received IV vancomycin, piperacillin / tazobactam. Stopped vanco in light of KELY. CHRONIC LYMPHEDEMA Wound Care consulted. ATRIAL FIBRILLATION Chronic. Stopped diltiazem in light of low blood pressures - discussed with Cardiology. EKG this morning - NSR, QTc 473 msec. Continue sotalol, warfarin. COPD Exacerbation secondary to pneumonia. Finishing recent course of prednisone, but not on long-term Rx. Received IV methylprednisolone this morning. Start prednisone 40 mg daily tomorrow, then taper as tolerated. Continue O2, nebs. ACUTE KIDNEY INJURY Serum creatinine 0.87 --> 1.69 --> 3.14. Hold furosemide. Received IV fluids. Renal US neg for obstruction. FE Na 0.15% Stopped IV vancomycin. Nephrology consulted - input appreciated. VTE PROPHYLAXIS Continue warfarin, titrate dose. Ambulate as able. DISPOSITION To be determined. Internal Medicine follow-up with Dr. Jiménez. . Current Inpatient Medications: Current Inpatient Medications Medications (Trade) Dose Ordered Sig/Denisse Route Start Time Stop Time Status Last Admin Dose Admin Acetaminophen (Tylenol Tab) 650 mg Q4H PRN PO 12/17/17 11:30 01/16/18 11:29 12/20/17 00:00 650 MG Ondansetron HCl (Zofran Inj) 4 mg Q6H PRN IV 12/17/17 11:30 01/16/18 11:29 Polyethylene (Miralax Powder Packet) 17 gm DAILY PRN PO 12/17/17 11:30 01/16/18 11:29 Piperacillin Sod/ Tazobactam Sod 3.375 gm/Dextrose 115 ml @ 28 mls/hr Q8H IV 12/17/17 16:00 12/24/17 15:59 12/21/17 16:15 28 MLS/HR Miscellaneous Information (Consult) 1 ea UD PRN N/A 12/17/17 11:30 01/16/18 11:29 Lorazepam (Ativan Tab) 0.5 mg TID PRN PO 12/17/17 11:30 01/16/18 11:29 12/20/17 20:33 0.5 MG Nitroglycerin (Nitrostat Tab) 0.4 mg PRN UT 12/17/17 11:30 01/16/18 11:29 Sertraline HCl (Zoloft Tab) 100 mg HS PO 12/17/17 21:00 01/16/18 20:59 12/20/17 20:31 100 MG Sotalol HCl (Betapace Tab) 80 mg BID PO 12/17/17 21:00 01/16/18 20:59 12/21/17 08:40 80 MG Warfarin Sodium (Coumadin Tab) 5 mg DAILY@1600 PO 12/17/17 16:00 01/16/18 15:59 Future Hold 12/18/17 16:14 5 MG Miscellaneous Information (Order Awaiting Action) 1 ea QS N/A 12/17/17 16:00 01/16/18 15:59 Saccharomyces Boulardii (Florastor Cap) 250 mg DAILY PO 12/18/17 09:00 01/17/18 08:59 12/21/17 08:40 250 MG Albuterol/ Ipratropium (Duoneb) 3 ml QIDR INH 12/17/17 16:00 01/16/18 15:59 12/21/17 20:16 3 ML Tramadol HCl (Ultram Tab) 50 mg Q4H PRN PO 12/17/17 14:00 01/16/18 13:59 Albuterol/ Ipratropium (Duoneb) 3 ml Q2H PRN INH 12/20/17 06:30 01/19/18 06:29 Prednisone (PredniSONE TAB) 40 mg DAILY PO 12/21/17 09:00 01/20/18 08:59 12/21/17 08:41 40 MG
[2017-12-21] MEDS: LORAZEPAM 0.5 MG TAB PO PRN (21:03)
[2017-12-21] MEDS: SERTRALINE HCL 100 MG TAB PO SCH (21:04)
[2017-12-22] VITALS (11 sets, daily range): BP systolic 95–120; BP diastolic 60–76; PULSE 69–77; TEMP 36.3–36.9; O2SAT 93–100
[2017-12-22] MEDS ORDERED: VANCOMYCIN TROUGH ONE (04:00)
[2017-12-22 06:19] LABS: INR 2.4 (0.9-1.1)
[2017-12-22 06:54] LABS: CALCIUM 8.2 mg/dl (8.5-10.1); CREATININE 3.97 mg/dl (0.60-1.40); POTASSIUM 4.4 mmol/L (3.5-5.1)
[2017-12-22] MEDS: ALBUT/IPRATROP 3MG/0.5MG NEB 3 ML VIAL INH SCH ×4 (07:00→20:13)
[2017-12-22] MEDS: SOTALOL HCL 80 MG TAB PO SCH (08:01)
[2017-12-22] MEDS: SACCHAROMYCES BOUL (FLORASTOR) 250 MG CAP PO SCH (08:01)
[2017-12-22] MEDS: PIPERACILL/TAZOBAC IV 3.375 GM in DEXTROSE 5% 100ML 100 ML IV SCH ×3 (08:05→23:36)
--- NOTE | 2017-12-22 10:45 | Clinical Documentation Query ---
CLINICAL DOCUMENTATION QUERY Coders at this facility tend to not code a principle diagnosis unless it is carried through on to DC summary. Unless the specificity of suspected organism is continue to DC summary I feel it may be not coded and its' associated severity of illness will bel lost as well. The follow statement had been documented by previous attending physician (): " HCAP (Suspected MRSA or Gram negative pneumonia treated with combination IV Zosyn and Vancomycin therapy)-L lung pneumonia." Since you have picked up the patient this documentation has fallen of the record. In your clinical opinion is this patient being managed for: ( ) HCAP with Suspected MRSA or Gram negative pneumonia ( x ) HCAP with MRSA or Gram negative pneumonia ruled out as sources. ( ) Simple pneumonia ( ) Not Agree IF IN AGREEMENT, YOU MUST DOCUMENT ABOVE DIAGNOSTIC STATEMENT IN DAILY PROGRESS NOTES AND DISCHARGE SUMMARY. This document is not part of the patient's record. Thank You, Manuel Salinas, RN [phone]
[2017-12-22 14:44] LABS: CALCIUM 8.4 mg/dl (8.5-10.1); CREATININE 4.16 mg/dl (0.60-1.40); POTASSIUM 4.5 mmol/L (3.5-5.1)
[2017-12-22] MEDS ORDERED: PHYTONADIONE 5 MG TAB PO ONE (14:45)
--- NOTE | 2017-12-22 18:23 | Nephrology Progress Note ---
Nephrology Progress Note Date of Service: Dec 22, 2017. Subjective feels edema, breathing a bit better and down to 2L for most part. SBP a bit better too. Objective Date Time Temp Pulse Resp B/P (MAP) Pulse Ox O2 Delivery O2 Flow Rate FiO2 12/22/17 07:36 36.5 69 20 95/60 (72) 97 3.0 12/22/17 07:02 69 16 93 Nasal Cannula 2.0 12/22/17 04:00 36.3 70 20 108/70 (83) 100 CPAP 12/22/17 04:00 93 CPAP 2.0 12/22/17 00:00 93 CPAP 2.0 12/21/17 23:41 36.8 71 20 108/76 (87) 100 CPAP 12/21/17 21:05 71 121/78 (92) 12/21/17 20:16 69 16 93 Nasal Cannula 2.0 12/21/17 20:00 Nasal Cannula 3.0 12/21/17 16:00 Nasal Cannula 3.0 12/21/17 15:11 36.5 76 18 98/64 (75) 98 2.0 12/21/17 14:33 76 16 92 Nasal Cannula 2.0 12/21/17 12:00 BiPAP 12/21/17 11:49 74 16 98 Nasal Cannula 4.0 12/21/17 11:41 36.5 72 18 92/61 (71) 97 2.0 Physical Exam: General Appearance: WD/WN, no apparent distress, + cachetic (on 2L 02nc) Eyes: EOMI ENT: hearing grossly normal Neck: supple Respiratory/Chest: lungs clear, no respiratory distress, + decreased breath sounds Cardiovascular: regular rate, rhythm, + pertinent finding (4+ edema L foot and 2+ to knee; 1-2+ R foot/leg) Abdomen: normal bowel sounds, non tender, soft, + pertinent finding (no wren) Extremities: + pedal edema Neurologic/Psych: alert, normal mood/affect, oriented x 3 Skin: no jaundice, warm/dry, no rash, + pertinent finding (wounds BL shins olya R) Current Inpatient Medications Medications (Trade) Dose Ordered Sig/Denisse Route Start Time Stop Time Status Last Admin Dose Admin Acetaminophen (Tylenol Tab) 650 mg Q4H PRN PO 12/17/17 11:30 01/16/18 11:29 12/20/17 00:00 650 MG Ondansetron HCl (Zofran Inj) 4 mg Q6H PRN IV 12/17/17 11:30 01/16/18 11:29 Polyethylene (Miralax Powder Packet) 17 gm DAILY PRN PO 12/17/17 11:30 01/16/18 11:29 Piperacillin Sod/ Tazobactam Sod 3.375 gm/Dextrose 115 ml @ 28 mls/hr Q8H IV 12/17/17 16:00 12/24/17 15:59 12/22/17 08:05 28 MLS/HR Miscellaneous Information (Consult) 1 ea UD PRN N/A 12/17/17 11:30 01/16/18 11:29 Lorazepam (Ativan Tab) 0.5 mg TID PRN PO 12/17/17 11:30 01/16/18 11:29 12/21/17 21:03 0.5 MG Nitroglycerin (Nitrostat Tab) 0.4 mg PRN UT 12/17/17 11:30 01/16/18 11:29 Sertraline HCl (Zoloft Tab) 100 mg HS PO 12/17/17 21:00 01/16/18 20:59 12/21/17 21:04 100 MG Sotalol HCl (Betapace Tab) 80 mg BID PO 12/17/17 21:00 01/16/18 20:59 12/22/17 08:01 80 MG Warfarin Sodium (Coumadin Tab) 5 mg DAILY@1600 PO 12/17/17 16:00 01/16/18 15:59 Future Hold 12/18/17 16:14 5 MG Miscellaneous Information (Order Awaiting Action) 1 ea QS N/A 12/17/17 16:00 01/16/18 15:59 Saccharomyces Boulardii (Florastor Cap) 250 mg DAILY PO 12/18/17 09:00 01/17/18 08:59 12/22/17 08:01 250 MG Albuterol/ Ipratropium (Duoneb) 3 ml QIDR INH 12/17/17 16:00 01/16/18 15:59 12/22/17 07:00 3 ML Tramadol HCl (Ultram Tab) 50 mg Q4H PRN PO 12/17/17 14:00 01/16/18 13:59 Albuterol/ Ipratropium (Duoneb) 3 ml Q2H PRN INH 12/20/17 06:30 01/19/18 06:29 Prednisone (PredniSONE TAB) 40 mg DAILY PO 12/21/17 09:00 01/20/18 08:59 12/22/17 08:01 40 MG Last 24 Hours Test 12/22/17 05:35 Prothrombin Time 25.1 SECONDS Prothromb Time International Ratio 2.4 Sodium Level 137 mmol/L Potassium Level 4.4 mmol/L Chloride Level 99 mmol/L Carbon Dioxide Level 33 mmol/L Anion Gap 5.0 mmol/L Blood Urea Nitrogen 42 mg/dl Creatinine 3.97 mg/dl Est Creatinine Clear Calc Drug Dose 25.8 ml/min Estimated GFR () 17.6 Estimated GFR (Non- 15.2 BUN/Creatinine Ratio 10.7 Random Glucose 101 mg/dl Calcium Level 8.2 mg/dl Other Studies: FENa 0.2% FEUric Acid 21% Assessment & Plan 62 y/o M w/ severe COPD on 2-3L 02NC chronically and w/ chronic BL lymphedema, a fib recently started on sotalol and coumadin admitted with generalized weakness and creatinine at baseline of 0.9-1.1. He had several days of labile/ lower blood pressures since before admission. Now with creatinine 1.7 12/20 >> 4 today on rapid upward trend not yet plateaud > > 4.2 this afternoon Oliguric KELY > suspect ATN from subacute hypotension past week at least then w/ likely supratherapeutic vanco levels; interstitial nephritis also possible; cannot rule out glomerular issue (unlikely) as UA shows no infection or dipstick proteinuria . u/s reassuring no obstruction -daily bmp -hold lasix / use prn only -cont to hold vanco >>>did d/w pharmacy about sotalol dose >>recommend dose q 36-48 hrs and already given this am. Will STOP SOTALOL and defer to primary service either to reorder for earliest redose tomorrow evening or to consider (probably needs more cardiology input) whether sotalol appropriate in this setting; may be better off on diltiazem alone for rate control -ordered urine eosinophils -next 24-48 hrs crucial as he may stabilize/improve or may tip toward needing dialysis; introduced this w/ him at length today >> if necessary he will do it but may be nearing plateau >coumadin on hold -FENa difficult to interpret > could be interstitial nephritis, could be vol depletion; FEUric acid in this case equivocal -d/w Dr Macdonald > trial of NS at 50 mL hourly overnight Hypotension SBP runs 100s-110s as outpt; has been quite labile since admission and a bit improved today but not infrequently in 90s systolic, some 70s; may relate to sx prompting his admission; sbp was 92 at PCP prior to admission -primary service aware> dilt and sotalol now both stopped; trial of gentle rate NS Chronic lymphedema -cont conservative measures/wrapping as appropriate/ elevation -hold lasix for now A fib/flutter; rate has been reasonably controlled. -off all rate / rhythm control meds Cellulitis/HCAP >> vanco stopped; remains on zosyn; f/u urine cx clear Appreciate consult; will follow with you. care coordinated w/ dr macdonald.
[2017-12-22] MEDS: LORAZEPAM 0.5 MG TAB PO PRN (20:22)
[2017-12-22] MEDS: SERTRALINE HCL 100 MG TAB PO SCH (20:23)
--- NOTE | 2017-12-22 20:32 | Progress Note ---
Medicine Progress Note Date & Time of Visit: Dec 22, 2017 at 15:30 . Subjective CC: Follow-up visit for multiple problems. HPI: No fever. Occasional cough. No SOB. No CP. 1 or 2 loose stools. No nausea, vomiting. No dysuria. Legs feel better. ROS: General- as noted above in HPI Resp- as noted above in HPI Cardiac- as noted above in HPI GI- as noted above in HPI - as noted above in HPI . Objective Last 8 Hrs Date Time Temp Pulse Resp B/P (MAP) Pulse Ox O2 Delivery O2 Flow Rate FiO2 12/22/17 20:13 77 16 98 Nasal Cannula 2.0 12/22/17 19:38 36.4 70 18 120/76 (91) 97 Nasal Cannula 3.0 12/22/17 15:45 76 16 93 Nasal Cannula 2.0 12/22/17 15:30 Nasal Cannula 2.0 12/22/17 14:59 36.9 74 20 111/72 (85) 96 Physical Exam: General- sitting in bed; no acute distress Lungs- few rales left base; mild wheezing, no respiratory distress Cardiovascular- RRR; no gallop; no JVD Abdomen- + bowel sounds, soft, nontender Extremities- no cyanosis; legs bandaged; lymphedema of lower extremities, R >> L. Neuro- alert, oriented Skin- warm & dry . Laboratory Results: Last 24 Hours Test 12/22/17 05:35 12/22/17 14:07 Prothrombin Time 25.1 SECONDS Prothromb Time International Ratio 2.4 Sodium Level 137 mmol/L 137 mmol/L Potassium Level 4.4 mmol/L 4.5 mmol/L Chloride Level 99 mmol/L 100 mmol/L Carbon Dioxide Level 33 mmol/L 33 mmol/L Anion Gap 5.0 mmol/L 4.0 mmol/L Blood Urea Nitrogen 42 mg/dl 48 mg/dl Creatinine 3.97 mg/dl 4.16 mg/dl Est Creatinine Clear Calc Drug Dose 25.8 ml/min 24.6 ml/min Estimated GFR () 17.6 16.6 Estimated GFR (Non- 15.2 14.3 BUN/Creatinine Ratio 10.7 11.4 Random Glucose 101 mg/dl 131 mg/dl Calcium Level 8.2 mg/dl 8.4 mg/dl Assessment & Plan PNEUMONIA, HEALTH CARE ACQUIRED (present on admission) Had cough at time of admission. Influenza PCR negative. Chest x-ray showed left mid and lower lung infiltrates. Blood cultures obtained (negative to date). Urine legionella Ag neg. Received IV vancomycin, piperacillin / tazobactam. Stopped vanco in light of KELY. Afebrile. Oxygenating well on NC. UTI (present on admission) UA on admission showed nitrites, leukocyte esterase, WBC's, bacterial. Urine culture grew Klebsiella pneumoniae sensitive to all antibiotics tested except for nitrofurantoin. Continue IV piperacillin / tazobactam. CELLULITIS RLE (present on admission) Underlying marked lymphedema with ulcers. Wound Care consulted. Received IV vancomycin, piperacillin / tazobactam. Stopped vanco in light of KELY. CHRONIC LYMPHEDEMA Wound Care consulted. ATRIAL FIBRILLATION Chronic. Stopped diltiazem in light of low blood pressures - discussed with Cardiology. EKG 12/21- NSR, QTc 473 msec. Holding sotalol due to rising creatinine. Holding warfarin in case access needed for hemodialysis. COPD Exacerbation secondary to pneumonia. Finishing recent course of prednisone, but not on long-term Rx. Received IV methylprednisolone x 1. Started prednisone 40 mg daily, then taper as tolerated. Continue O2, nebs. ACUTE KIDNEY INJURY Serum creatinine 0.87 --> 1.69 --> 3.14 --> 3.97. Oliguric. Renal US neg for obstruction. FE Na 0.15% Stopped IV vancomycin. Nephrology consulted - input appreciated. No need for emergent dialysis. Furosemide held. IV fluids. Follow. VTE PROPHYLAXIS Continue warfarin, titrate dose. Ambulate as able. DISPOSITION To be determined. Internal Medicine follow-up with Dr. Jiménez. . Current Inpatient Medications: Current Inpatient Medications Medications (Trade) Dose Ordered Sig/Denisse Route Start Time Stop Time Status Last Admin Dose Admin Acetaminophen (Tylenol Tab) 650 mg Q4H PRN PO 12/17/17 11:30 01/16/18 11:29 12/20/17 00:00 650 MG Ondansetron HCl (Zofran Inj) 4 mg Q6H PRN IV 12/17/17 11:30 01/16/18 11:29 Polyethylene (Miralax Powder Packet) 17 gm DAILY PRN PO 12/17/17 11:30 01/16/18 11:29 Piperacillin Sod/ Tazobactam Sod 3.375 gm/Dextrose 115 ml @ 28 mls/hr Q8H IV 12/17/17 16:00 12/24/17 15:59 12/22/17 15:57 28 MLS/HR Miscellaneous Information (Consult) 1 ea UD PRN N/A 12/17/17 11:30 01/16/18 11:29 Lorazepam (Ativan Tab) 0.5 mg TID PRN PO 12/17/17 11:30 01/16/18 11:29 12/22/17 20:22 0.5 MG Nitroglycerin (Nitrostat Tab) 0.4 mg PRN UT 12/17/17 11:30 01/16/18 11:29 Sertraline HCl (Zoloft Tab) 100 mg HS PO 12/17/17 21:00 01/16/18 20:59 12/22/17 20:23 100 MG Warfarin Sodium (Coumadin Tab) 5 mg DAILY@1600 PO 12/17/17 16:00 01/16/18 15:59 Future Hold 12/18/17 16:14 5 MG Miscellaneous Information (Order Awaiting Action) 1 ea QS N/A 12/17/17 16:00 01/16/18 15:59 Saccharomyces Boulardii (Florastor Cap) 250 mg DAILY PO 12/18/17 09:00 01/17/18 08:59 12/22/17 08:01 250 MG Albuterol/ Ipratropium (Duoneb) 3 ml QIDR INH 12/17/17 16:00 01/16/18 15:59 12/22/17 20:13 3 ML Tramadol HCl (Ultram Tab) 50 mg Q4H PRN PO 12/17/17 14:00 01/16/18 13:59 Albuterol/ Ipratropium (Duoneb) 3 ml Q2H PRN INH 12/20/17 06:30 01/19/18 06:29 Prednisone (PredniSONE TAB) 40 mg DAILY PO 12/21/17 09:00 01/20/18 08:59 12/22/17 08:01 40 MG
[2017-12-22] MEDS ORDERED: SODIUM CHLORIDE 0.9% 1000ML 1,000 ML IV SCH (20:45)
[2017-12-23] VITALS (10 sets, daily range): BP systolic 96–118; BP diastolic 54–73; PULSE 68–78; TEMP 36.3–36.7; O2SAT 94–100
[2017-12-23 07:06] LABS: INR 1.4 (0.9-1.1)
[2017-12-23] MEDS: ALBUT/IPRATROP 3MG/0.5MG NEB 3 ML VIAL INH SCH ×4 (07:26→18:56)
[2017-12-23 07:31] LABS: CALCIUM 8.5 mg/dl (8.5-10.1); CREATININE 4.15 mg/dl (0.60-1.40); POTASSIUM 4.4 mmol/L (3.5-5.1)
[2017-12-23] MEDS: SACCHAROMYCES BOUL (FLORASTOR) 250 MG CAP PO SCH (07:36)
[2017-12-23] MEDS: PIPERACILL/TAZOBAC IV 3.375 GM in DEXTROSE 5% 100ML 100 ML IV SCH ×3 (07:36→23:40)
--- NOTE | 2017-12-23 08:13 | DIAGNOSTIC IMAGING REPORT ---
CHEST ONE VIEW PORTABLE CLINICAL HISTORY: f/u pneumonia, acute kidney injury COMPARISON STUDY: Chest radiograph December 20, 2017. FINDINGS: Severe emphysema is noted. Extensive left mid and lower lung airspace opacity persists. There may be a small left pleural effusion. No cavitation is identified. There is no evidence for pulmonary edema. IMPRESSION: 1. No change in extensive left lower opacity suggestive of pneumonia. Radiographic follow-up to ensure resolution is recommended. 2. Severe emphysema. Electronically signed by: Paramjit Linder M.D. 12/23/2017 8:12 AM Dictated Date/Time: 12/23/2017 8:11 AM
--- NOTE | 2017-12-23 09:56 | Nephrology Progress Note ---
Nephrology Progress Note Date of Service: Dec 23, 2017. Subjective 62 yo male with keaton with significant chronic lymphedema. on chronix oxygen with underlying emphysema with hx of aflutter/afib with hospital acquired pneumonia nd klebsiella uti with atn. creatinine appears to have peaked. urinating better. not uremic. Objective Date Time Temp Pulse Resp B/P (MAP) Pulse Ox O2 Delivery O2 Flow Rate FiO2 12/23/17 07:26 77 16 98 Nasal Cannula 4.0 12/23/17 07:23 36.5 69 16 118/73 (88) 12/23/17 04:04 36.7 70 20 111/71 (84) 99 Nasal Cannula 2.0 12/23/17 04:00 Nasal Cannula 2.0 12/23/17 00:00 Nasal Cannula 2.0 12/22/17 23:26 36.8 69 18 108/71 (83) 99 2.0 12/22/17 20:20 Nasal Cannula 2.0 12/22/17 20:13 77 16 98 Nasal Cannula 2.0 12/22/17 19:38 36.4 70 18 120/76 (91) 97 Nasal Cannula 3.0 12/22/17 15:45 76 16 93 Nasal Cannula 2.0 12/22/17 15:30 Nasal Cannula 2.0 12/22/17 14:59 36.9 74 20 111/72 (85) 96 12/22/17 12:00 BiPAP 12/22/17 11:56 69 16 99 Nasal Cannula 3.0 12/22/17 11:20 36.7 70 20 105/71 (82) 100 Physical Exam: General-aaox3 Eyes-no scleral icterus ENT-mmm Neck-supple Lungs-deminished at bases Heart-regular Abdomen-bs+ s/nt/nd Extremities-right leg lymphedema Neuro-nonfocal Current Inpatient Medications Medications (Trade) Dose Ordered Sig/Denisse Route Start Time Stop Time Status Last Admin Dose Admin Acetaminophen (Tylenol Tab) 650 mg Q4H PRN PO 12/17/17 11:30 01/16/18 11:29 12/20/17 00:00 650 MG Ondansetron HCl (Zofran Inj) 4 mg Q6H PRN IV 12/17/17 11:30 01/16/18 11:29 Polyethylene (Miralax Powder Packet) 17 gm DAILY PRN PO 12/17/17 11:30 01/16/18 11:29 Piperacillin Sod/ Tazobactam Sod 3.375 gm/Dextrose 115 ml @ 28 mls/hr Q8H IV 12/17/17 16:00 12/24/17 15:59 12/23/17 07:36 28 MLS/HR Miscellaneous Information (Consult) 1 ea UD PRN N/A 12/17/17 11:30 01/16/18 11:29 Lorazepam (Ativan Tab) 0.5 mg TID PRN PO 12/17/17 11:30 01/16/18 11:29 12/22/17 20:22 0.5 MG Nitroglycerin (Nitrostat Tab) 0.4 mg PRN UT 12/17/17 11:30 01/16/18 11:29 Sertraline HCl (Zoloft Tab) 100 mg HS PO 12/17/17 21:00 01/16/18 20:59 12/22/17 20:23 100 MG Warfarin Sodium (Coumadin Tab) 5 mg DAILY@1600 PO 12/17/17 16:00 01/16/18 15:59 Future Hold 12/18/17 16:14 5 MG Miscellaneous Information (Order Awaiting Action) 1 ea QS N/A 12/17/17 16:00 01/16/18 15:59 Saccharomyces Boulardii (Florastor Cap) 250 mg DAILY PO 12/18/17 09:00 01/17/18 08:59 12/23/17 07:36 250 MG Albuterol/ Ipratropium (Duoneb) 3 ml QIDR INH 12/17/17 16:00 01/16/18 15:59 12/23/17 07:26 3 ML Tramadol HCl (Ultram Tab) 50 mg Q4H PRN PO 12/17/17 14:00 01/16/18 13:59 Albuterol/ Ipratropium (Duoneb) 3 ml Q2H PRN INH 12/20/17 06:30 01/19/18 06:29 Prednisone (PredniSONE TAB) 40 mg DAILY PO 12/21/17 09:00 01/20/18 08:59 12/23/17 07:36 40 MG Sodium Chloride 1,000 ml @ 50 mls/hr Q20H IV 12/22/17 20:45 2/3/18 16:44 12/22/17 21:21 50 MLS/HR Last 24 Hours Test 12/22/17 14:07 12/23/17 06:05 Sodium Level 137 mmol/L 137 mmol/L Potassium Level 4.5 mmol/L 4.4 mmol/L Chloride Level 100 mmol/L 100 mmol/L Carbon Dioxide Level 33 mmol/L 29 mmol/L Anion Gap 4.0 mmol/L 7.0 mmol/L Blood Urea Nitrogen 48 mg/dl 50 mg/dl Creatinine 4.16 mg/dl 4.15 mg/dl Est Creatinine Clear Calc Drug Dose 24.6 ml/min 24.7 ml/min Estimated GFR () 16.6 16.7 Estimated GFR (Non- 14.3 14.4 BUN/Creatinine Ratio 11.4 12.0 Random Glucose 131 mg/dl 83 mg/dl Calcium Level 8.4 mg/dl 8.5 mg/dl Prothrombin Time 14.2 SECONDS Prothromb Time International Ratio 1.4 Assessment & Plan keaton/pwn-zmy-xvnnhsez-creatinine appears to have peaked. hopefully will start to improve tomorrow. ok with continuing the low rate of normal saline. no indication for dialysis at this time. once creatinine has started to significantly improve, consider albumin/lasix for several days in attempts to help improve the chronic lymphedema.
--- NOTE | 2017-12-23 17:16 | Progress Note ---
Medicine Progress Note Date & Time of Visit: Dec 23, 2017 at 16:10 . Subjective CC: Follow-up visit for multiple problems. HPI: No fever. Occasional cough. No SOB. No CP. 3 loose stools so far today. No nausea, vomiting. Urine output improved. No dysuria. ROS: General- as noted above in HPI Resp- as noted above in HPI Cardiac- as noted above in HPI GI- as noted above in HPI - as noted above in HPI . Objective Last 8 Hrs Date Time Temp Pulse Resp B/P (MAP) Pulse Ox O2 Delivery O2 Flow Rate FiO2 12/23/17 16:00 Nasal Cannula 3.0 12/23/17 15:13 36.6 73 16 104/62 (76) 100 Nasal Cannula 3.0 12/23/17 14:51 71 15 98 Nasal Cannula 3.0 12/23/17 12:10 36.3 69 16 114/69 (84) 100 Nasal Cannula 4.0 12/23/17 12:00 BiPAP 12/23/17 11:32 68 15 94 Nasal Cannula 4.0 Physical Exam: General- sitting in bed; no acute distress Lungs- few rales left base; mild wheezing, no respiratory distress Cardiovascular- RRR; no gallop; no JVD Abdomen- + bowel sounds, soft, nontender Extremities- no cyanosis; legs bandaged; lymphedema of lower extremities, R >> L. Neuro- alert, oriented Skin- warm & dry . Laboratory Results: Last 24 Hours Test 12/23/17 06:05 Prothrombin Time 14.2 SECONDS Prothromb Time International Ratio 1.4 Sodium Level 137 mmol/L Potassium Level 4.4 mmol/L Chloride Level 100 mmol/L Carbon Dioxide Level 29 mmol/L Anion Gap 7.0 mmol/L Blood Urea Nitrogen 50 mg/dl Creatinine 4.15 mg/dl Est Creatinine Clear Calc Drug Dose 24.7 ml/min Estimated GFR () 16.7 Estimated GFR (Non- 14.4 BUN/Creatinine Ratio 12.0 Random Glucose 83 mg/dl Calcium Level 8.5 mg/dl Assessment & Plan PNEUMONIA, HEALTH CARE ACQUIRED (present on admission) Had cough at time of admission. Influenza PCR negative. Chest x-ray showed left mid and lower lung infiltrates. Blood cultures obtained (negative to date). Urine legionella Ag neg. Received IV vancomycin, piperacillin / tazobactam. Stopped vanco in light of KELY. Continue piperacillin / tazobactam- today is day # 7. Afebrile. Oxygenating well on NC. UTI (present on admission) UA on admission showed nitrites, leukocyte esterase, WBC's, bacterial. Urine culture grew Klebsiella pneumoniae sensitive to all antibiotics tested except for nitrofurantoin. Continue piperacillin / tazobactam- today is day # 7. CELLULITIS RLE (present on admission) Underlying marked lymphedema with ulcers. Wound Care consulted. Received IV vancomycin, piperacillin / tazobactam. Stopped vanco in light of KELY. Continue piperacillin / tazobactam- today is day # 7. CHRONIC LYMPHEDEMA Wound Care consulted. ATRIAL FIBRILLATION Chronic. Stopped diltiazem in light of low blood pressures - discussed with Cardiology. EKG 12/21- NSR, QTc 473 msec. Holding sotalol due to rising creatinine. Holding warfarin in case access needed for hemodialysis. COPD Exacerbation secondary to pneumonia. Finishing recent course of prednisone, but not on long-term Rx. Received IV methylprednisolone x 1. Started prednisone 40 mg daily, then taper as tolerated. Continue O2, nebs. ACUTE KIDNEY INJURY Serum creatinine 0.87 --> 1.69 --> 3.14 --> 3.97-->4.16--> 4.15. Oliguric. Renal US neg for obstruction. FE Na 0.15% Stopped IV vancomycin. Nephrology consulted - input appreciated. No need for emergent dialysis. Furosemide held. IV fluids. Urine output improved. Creatinine appears to be stabilizing. Follow. LOOSE STOOLS 3 loose stools today. Check for C diff. VTE PROPHYLAXIS On warfarin at time of admission, currently on hold. SQ heparin. Ambulate as able. DISPOSITION To be determined. Internal Medicine follow-up with Dr. Jiménez. . Current Inpatient Medications: Current Inpatient Medications Medications (Trade) Dose Ordered Sig/Denisse Route Start Time Stop Time Status Last Admin Dose Admin Acetaminophen (Tylenol Tab) 650 mg Q4H PRN PO 12/17/17 11:30 01/16/18 11:29 12/20/17 00:00 650 MG Ondansetron HCl (Zofran Inj) 4 mg Q6H PRN IV 12/17/17 11:30 01/16/18 11:29 Polyethylene (Miralax Powder Packet) 17 gm DAILY PRN PO 12/17/17 11:30 01/16/18 11:29 Piperacillin Sod/ Tazobactam Sod 3.375 gm/Dextrose 115 ml @ 28 mls/hr Q8H IV 12/17/17 16:00 12/24/17 15:59 12/23/17 15:37 28 MLS/HR Miscellaneous Information (Consult) 1 ea UD PRN N/A 12/17/17 11:30 01/16/18 11:29 Lorazepam (Ativan Tab) 0.5 mg TID PRN PO 12/17/17 11:30 01/16/18 11:29 12/22/17 20:22 0.5 MG Nitroglycerin (Nitrostat Tab) 0.4 mg PRN UT 12/17/17 11:30 01/16/18 11:29 Sertraline HCl (Zoloft Tab) 100 mg HS PO 12/17/17 21:00 01/16/18 20:59 12/22/17 20:23 100 MG Warfarin Sodium (Coumadin Tab) 5 mg DAILY@1600 PO 12/17/17 16:00 01/16/18 15:59 Future Hold 12/18/17 16:14 5 MG Miscellaneous Information (Order Awaiting Action) 1 ea QS N/A 12/17/17 16:00 01/16/18 15:59 Saccharomyces Boulardii (Florastor Cap) 250 mg DAILY PO 12/18/17 09:00 01/17/18 08:59 12/23/17 07:36 250 MG Albuterol/ Ipratropium (Duoneb) 3 ml QIDR INH 12/17/17 16:00 01/16/18 15:59 12/23/17 14:50 3 ML Tramadol HCl (Ultram Tab) 50 mg Q4H PRN PO 12/17/17 14:00 01/16/18 13:59 Albuterol/ Ipratropium (Duoneb) 3 ml Q2H PRN INH 12/20/17 06:30 01/19/18 06:29 Prednisone (PredniSONE TAB) 40 mg DAILY PO 12/21/17 09:00 01/20/18 08:59 12/23/17 07:36 40 MG
[2017-12-23] MEDS: SERTRALINE HCL 100 MG TAB PO SCH (21:18)
[2017-12-23] MEDS: LORAZEPAM 0.5 MG TAB PO PRN (21:20)
[2017-12-24] VITALS (9 sets, daily range): BP systolic 102–113; BP diastolic 66–73; PULSE 71–81; TEMP 36.3–36.6; O2SAT 95–99
[2017-12-24 06:22] LABS: HEMATOCRIT 34.7 % (42-52); HEMOGLOBIN 10.7 g/dL (14.0-18.0); MEAN CELL VOLUME 91.6 fL (80-100); MEAN CORPUSCULAR HEMOGLOBIN 28.2 pg (25-34); MEAN CORPUSCULAR HGB CONC 30.8 g/dl (32-36); MEAN PLATELET VOLUME 8.5 fL (7.4-10.4); PLATELET COUNT 210 K/uL (130-400); RED CELL DISTRIBUTION WIDTH CV 13.5 % (11.5-14.5); WHITE BLOOD COUNT 11.02 K/uL (4.8-10.8)
[2017-12-24 06:53] LABS: CALCIUM 8.3 mg/dl (8.5-10.1); CREATININE 4.3 mg/dl (0.60-1.40); POTASSIUM 4.5 mmol/L (3.5-5.1)
[2017-12-24] MEDS: ALBUT/IPRATROP 3MG/0.5MG NEB 3 ML VIAL INH SCH ×4 (07:26→19:06)
[2017-12-24] MEDS: PIPERACILL/TAZOBAC IV 3.375 GM in DEXTROSE 5% 100ML 100 ML IV SCH ×2 (08:11→21:08)
[2017-12-24] MEDS: SACCHAROMYCES BOUL (FLORASTOR) 250 MG CAP PO SCH (08:12)
[2017-12-24] MEDS: HEPARIN SOD 5000 UNIT/0.5 ML CARP SQ SCH ×2 (08:41→21:00)
--- NOTE | 2017-12-24 15:15 | Nephrology Progress Note ---
Nephrology Progress Note Date of Service: Dec 24, 2017. Subjective 62 yo male with keaton with significant chronic lymphedema. on chronix oxygen with underlying emphysema with hx of aflutter/afib with hospital acquired pneumonia and klebsiella uti with atn. creatinine continues to slowly worsen. pt though feels well. no specific complaints. Objective Date Time Temp Pulse Resp B/P (MAP) Pulse Ox O2 Delivery O2 Flow Rate FiO2 12/24/17 15:05 36.6 71 16 102/66 (78) 98 Nasal Cannula 3.0 12/24/17 12:00 BiPAP 12/24/17 11:28 36.6 79 16 113/73 (86) 98 Nasal Cannula 3.0 12/24/17 11:25 72 15 98 Nasal Cannula 2.0 12/24/17 08:00 BiPAP 12/24/17 07:26 81 15 97 Nasal Cannula 2.0 12/24/17 07:13 36.3 79 16 105/69 (81) 99 Room Air 12/24/17 04:00 Nasal Cannula 3.0 12/24/17 02:53 36.4 77 20 105/67 (80) 95 BiPAP 12/24/17 00:00 Nasal Cannula 3.0 12/23/17 23:29 36.6 73 20 104/64 (77) 98 Nasal Cannula 3.0 12/23/17 20:00 Nasal Cannula 3.0 12/23/17 19:49 36.4 78 20 96/54 (68) 98 Nasal Cannula 3.0 12/23/17 18:56 78 15 98 Nasal Cannula 2.0 12/23/17 16:00 Nasal Cannula 3.0 Physical Exam: General-aaox3 Eyes-no scleral icterus ENT-mmm Neck-supple Lungs-decreased at bases Heart-rrr Abdomen-bs+ s/nt/nd Extremities-right leg lymphedema Neuro-nonfocal Current Inpatient Medications Medications (Trade) Dose Ordered Sig/Denisse Route Start Time Stop Time Status Last Admin Dose Admin Acetaminophen (Tylenol Tab) 650 mg Q4H PRN PO 12/17/17 11:30 01/16/18 11:29 12/20/17 00:00 650 MG Ondansetron HCl (Zofran Inj) 4 mg Q6H PRN IV 12/17/17 11:30 01/16/18 11:29 Polyethylene (Miralax Powder Packet) 17 gm DAILY PRN PO 12/17/17 11:30 01/16/18 11:29 Piperacillin Sod/ Tazobactam Sod 3.375 gm/Dextrose 115 ml @ 28 mls/hr Q8H IV 12/17/17 16:00 12/24/17 15:59 12/24/17 08:11 28 MLS/HR Miscellaneous Information (Consult) 1 ea UD PRN N/A 12/17/17 11:30 01/16/18 11:29 Lorazepam (Ativan Tab) 0.5 mg TID PRN PO 12/17/17 11:30 01/16/18 11:29 12/23/17 21:20 0.5 MG Nitroglycerin (Nitrostat Tab) 0.4 mg PRN UT 12/17/17 11:30 01/16/18 11:29 Sertraline HCl (Zoloft Tab) 100 mg HS PO 12/17/17 21:00 01/16/18 20:59 12/23/17 21:18 100 MG Warfarin Sodium (Coumadin Tab) 5 mg DAILY@1600 PO 12/17/17 16:00 01/16/18 15:59 Future Hold 12/18/17 16:14 5 MG Miscellaneous Information (Order Awaiting Action) 1 ea QS N/A 12/17/17 16:00 01/16/18 15:59 Saccharomyces Boulardii (Florastor Cap) 250 mg DAILY PO 12/18/17 09:00 01/17/18 08:59 12/24/17 08:12 250 MG Albuterol/ Ipratropium (Duoneb) 3 ml QIDR INH 12/17/17 16:00 01/16/18 15:59 12/24/17 11:25 3 ML Tramadol HCl (Ultram Tab) 50 mg Q4H PRN PO 12/17/17 14:00 01/16/18 13:59 Albuterol/ Ipratropium (Duoneb) 3 ml Q2H PRN INH 12/20/17 06:30 01/19/18 06:29 Prednisone (PredniSONE TAB) 40 mg DAILY PO 12/21/17 09:00 01/20/18 08:59 12/24/17 08:12 40 MG Heparin Sodium (Porcine) (Heparin Sq 5000 Unit/0.5ml) 5,000 unit Q12 SQ 12/24/17 09:00 01/23/18 08:59 Last 24 Hours Test 12/24/17 05:50 White Blood Count 11.02 K/uL Red Blood Count 3.79 M/uL Hemoglobin 10.7 g/dL Hematocrit 34.7 % Mean Corpuscular Volume 91.6 fL Mean Corpuscular Hemoglobin 28.2 pg Mean Corpuscular Hemoglobin Concent 30.8 g/dl RDW Standard Deviation 45.0 fL RDW Coefficient of Variation 13.5 % Platelet Count 210 K/uL Mean Platelet Volume 8.5 fL Prothrombin Time 10.9 SECONDS Prothromb Time International Ratio 1.0 Sodium Level 138 mmol/L Potassium Level 4.5 mmol/L Chloride Level 101 mmol/L Carbon Dioxide Level 32 mmol/L Anion Gap 5.0 mmol/L Blood Urea Nitrogen 55 mg/dl Creatinine 4.30 mg/dl Est Creatinine Clear Calc Drug Dose 23.9 ml/min Estimated GFR () 16.0 Estimated GFR (Non- 13.8 BUN/Creatinine Ratio 12.7 Random Glucose 77 mg/dl Calcium Level 8.3 mg/dl C-Reactive Protein 4.46 mg/dl Assessment & Plan keaton/fes-owx-pxqpwepm-creatinine unfortunately continues to worsen. hopeful though that creatinine will eventually start to improve. not uremic so no indication at this time to do dialysis. will follow closely. no changes.
--- NOTE | 2017-12-24 19:51 | Progress Note ---
Medicine Progress Note Date & Time of Visit: Dec 24, 2017 at 11:50 . Subjective CC: Follow-up visit for multiple problems. HPI: No fever. Minimal cough. No SOB. No chest pain. Diarrhea improved. No nausea, vomiting. Urine output improved. No dysuria. Sister visiting. ROS: General- as noted above in HPI Resp- as noted above in HPI Cardiac- as noted above in HPI GI- as noted above in HPI - as noted above in HPI . Objective Last 8 Hrs Date Time Temp Pulse Resp B/P (MAP) Pulse Ox O2 Delivery O2 Flow Rate FiO2 12/24/17 19:06 78 15 97 Nasal Cannula 2.0 12/24/17 18:43 36.5 76 20 108/66 (80) 97 12/24/17 16:00 Nasal Cannula 3.0 12/24/17 15:26 74 15 98 Nasal Cannula 2.0 12/24/17 15:05 36.6 71 16 102/66 (78) 98 Nasal Cannula 3.0 12/24/17 12:00 BiPAP Physical Exam: General- sitting in bed; no acute distress Lungs- few rales left base; mild wheezing, no respiratory distress Cardiovascular- RRR; no gallop; no JVD Abdomen- + bowel sounds, soft, nontender Extremities- no cyanosis; legs bandaged; lymphedema of lower extremities, R >> L. Neuro- alert, oriented Skin- warm & dry . Laboratory Results: Last 24 Hours Test 12/24/17 05:50 White Blood Count 11.02 K/uL Red Blood Count 3.79 M/uL Hemoglobin 10.7 g/dL Hematocrit 34.7 % Mean Corpuscular Volume 91.6 fL Mean Corpuscular Hemoglobin 28.2 pg Mean Corpuscular Hemoglobin Concent 30.8 g/dl RDW Standard Deviation 45.0 fL RDW Coefficient of Variation 13.5 % Platelet Count 210 K/uL Mean Platelet Volume 8.5 fL Prothrombin Time 10.9 SECONDS Prothromb Time International Ratio 1.0 Sodium Level 138 mmol/L Potassium Level 4.5 mmol/L Chloride Level 101 mmol/L Carbon Dioxide Level 32 mmol/L Anion Gap 5.0 mmol/L Blood Urea Nitrogen 55 mg/dl Creatinine 4.30 mg/dl Est Creatinine Clear Calc Drug Dose 23.9 ml/min Estimated GFR () 16.0 Estimated GFR (Non- 13.8 BUN/Creatinine Ratio 12.7 Random Glucose 77 mg/dl Calcium Level 8.3 mg/dl C-Reactive Protein 4.46 mg/dl Date/Time Source Procedure Growth Status 12/24/17 15:48 Stool C.difficile Toxin B Gene (PCR) - Final No C. difficile toxin B gene detected Complete Assessment & Plan PNEUMONIA, HEALTH CARE ACQUIRED (present on admission) Had cough at time of admission. Influenza PCR negative. Chest x-ray showed left mid and lower lung infiltrates. Blood cultures obtained (negative to date). Urine legionella Ag neg. Received IV vancomycin, piperacillin / tazobactam. Stopped vanco in light of KELY. Continue piperacillin / tazobactam- today is day # 8. Afebrile. Oxygenating well on NC. UTI (present on admission) UA on admission showed nitrites, leukocyte esterase, WBC's, bacterial. Urine culture grew Klebsiella pneumoniae sensitive to all antibiotics tested except for nitrofurantoin. Continue piperacillin / tazobactam- today is day # 8. CELLULITIS RLE (present on admission) Underlying marked lymphedema with ulcers. Wound Care consulted. Received IV vancomycin, piperacillin / tazobactam. Stopped vanco in light of KELY. C-reactive protein 12/17 was 13 --> 2 was 4.46. Continue piperacillin / tazobactam- today is day # 8. CHRONIC LYMPHEDEMA Wound Care consulted. ATRIAL FIBRILLATION Chronic. Stopped diltiazem in light of low blood pressures - discussed with Cardiology. EKG 12/21- NSR, QTc 473 msec. Holding sotalol due to rising creatinine. Holding warfarin in case access needed for hemodialysis. COPD Exacerbation secondary to pneumonia. Finishing recent course of prednisone, but not on long-term Rx. Received IV methylprednisolone x 1. Started prednisone 40 mg daily, then taper as tolerated. Continue O2, nebs. ACUTE KIDNEY INJURY Serum creatinine 0.87 --> 1.69 --> 3.14 --> 3.97-->4.16--> 4.15--> 4.3. Renal US neg for obstruction. FE Na 0.15% Stopped IV vancomycin. Nephrology consulted - input appreciated. No need for emergent dialysis. Furosemide held. IV fluids. Oliguric for several days; urine output now improved. Creatinine appears to be stabilizing. Follow. LOOSE STOOLS Stools negative for C diff. VTE PROPHYLAXIS On warfarin at time of admission, currently on hold. SQ heparin. Ambulate as able. DISPOSITION To be determined. Internal Medicine follow-up with Dr. Jiménez. Sister visiting and given update. . Current Inpatient Medications: Current Inpatient Medications Medications (Trade) Dose Ordered Sig/Denisse Route Start Time Stop Time Status Last Admin Dose Admin Acetaminophen (Tylenol Tab) 650 mg Q4H PRN PO 12/17/17 11:30 01/16/18 11:29 12/20/17 00:00 650 MG Ondansetron HCl (Zofran Inj) 4 mg Q6H PRN IV 12/17/17 11:30 01/16/18 11:29 Polyethylene (Miralax Powder Packet) 17 gm DAILY PRN PO 12/17/17 11:30 01/16/18 11:29 Miscellaneous Information (Consult) 1 ea UD PRN N/A 12/17/17 11:30 01/16/18 11:29 Lorazepam (Ativan Tab) 0.5 mg TID PRN PO 12/17/17 11:30 01/16/18 11:29 12/23/17 21:20 0.5 MG Nitroglycerin (Nitrostat Tab) 0.4 mg PRN UT 12/17/17 11:30 01/16/18 11:29 Sertraline HCl (Zoloft Tab) 100 mg HS PO 12/17/17 21:00 01/16/18 20:59 12/23/17 21:18 100 MG Warfarin Sodium (Coumadin Tab) 5 mg DAILY@1600 PO 12/17/17 16:00 01/16/18 15:59 Future Hold 12/18/17 16:14 5 MG Miscellaneous Information (Order Awaiting Action) 1 ea QS N/A 12/17/17 16:00 01/16/18 15:59 Saccharomyces Boulardii (Florastor Cap) 250 mg DAILY PO 12/18/17 09:00 01/17/18 08:59 12/24/17 08:12 250 MG Albuterol/ Ipratropium (Duoneb) 3 ml QIDR INH 12/17/17 16:00 01/16/18 15:59 12/24/17 19:06 3 ML Tramadol HCl (Ultram Tab) 50 mg Q4H PRN PO 12/17/17 14:00 01/16/18 13:59 Albuterol/ Ipratropium (Duoneb) 3 ml Q2H PRN INH 12/20/17 06:30 01/19/18 06:29 Prednisone (PredniSONE TAB) 40 mg DAILY PO 12/21/17 09:00 01/20/18 08:59 12/24/17 08:12 40 MG Heparin Sodium (Porcine) (Heparin Sq 5000 Unit/0.5ml) 5,000 unit Q12 SQ 12/24/17 09:00 01/23/18 08:59
[2017-12-24] MEDS ORDERED: PIPERACILL/TAZOBAC CONSULT ACTIVE PRN ×2 (20:45)
[2017-12-24] MEDS: SERTRALINE HCL 100 MG TAB PO SCH (21:03)
[2017-12-24] MEDS: LORAZEPAM 0.5 MG TAB PO PRN (21:04)
[2017-12-25] VITALS (9 sets, daily range): BP systolic 108–133; BP diastolic 67–88; PULSE 75–81; TEMP 36.1–36.7; O2SAT 92–100
[2017-12-25] MEDS: PIPERACILL/TAZOBAC IV 3.375 GM in DEXTROSE 5% 100ML 100 ML IV SCH ×3 (05:27→20:38)
[2017-12-25 06:46] LABS: HEMATOCRIT 35.9 % (42-52); HEMOGLOBIN 11.1 g/dL (14.0-18.0); MEAN CELL VOLUME 91.3 fL (80-100); MEAN CORPUSCULAR HEMOGLOBIN 28.2 pg (25-34); MEAN CORPUSCULAR HGB CONC 30.9 g/dl (32-36); MEAN PLATELET VOLUME 8.4 fL (7.4-10.4); PLATELET COUNT 221 K/uL (130-400); RED CELL DISTRIBUTION WIDTH CV 13.3 % (11.5-14.5); RED CELL DISTRIBUTION WIDTH SD 44.3 fL (36.4-46.3); WHITE BLOOD COUNT 13.16 K/uL (4.8-10.8)
[2017-12-25] MEDS: ALBUT/IPRATROP 3MG/0.5MG NEB 3 ML VIAL INH SCH ×4 (07:14→20:10)
[2017-12-25 07:19] LABS: CALCIUM 8.7 mg/dl (8.5-10.1); CREATININE 4.01 mg/dl (0.60-1.40); POTASSIUM 4.4 mmol/L (3.5-5.1)
[2017-12-25] MEDS: SACCHAROMYCES BOUL (FLORASTOR) 250 MG CAP PO SCH (08:04)
[2017-12-25] MEDS: HEPARIN SOD 5000 UNIT/0.5 ML CARP SQ SCH ×2 (08:04→20:38)
[2017-12-25] MEDS ORDERED: LEVALBUTEROL 0.63MG/3 ML NEB INH PRN (16:00)
[2017-12-25] MEDS: WARFARIN SOD 5 MG TAB PO SCH (16:38)
--- NOTE | 2017-12-25 17:06 | Podiatry Consultation ---
Podiatry Consultation Date of Consultation: Dec 25, 2017. Attending Physician: Jaime Macdonald M.D. Reason for Consultation: Routine nail care History of Present Illness This is a pleasant 62 year old male patient seen for consult of routine foot care today. Patient states he has been unable to trim his nails at home due to his severe leg and foot swelling. He states his nails are long and painful today. Past Medical/Surgical History Medical Problems: (1) COPD with acute exacerbation Status: Acute (2) Dehydration Status: Acute (3) Hypoxia Status: Acute (4) Left lower lobe pneumonia Status: Acute (5) Lymphedema Status: Chronic (6) Malnutrition Status: Acute (7) Swelling of left extremity Status: Acute (8) Swelling of right extremity Status: Acute Family History FH: cancer Lung disease Stroke Social History Smoking Status: Former Smoker Smokeless Tobacco Use: Unknown Alcohol Use: none Drug Use: none Marital Status: Occupation Status: disabled Allergies Coded Allergies: No Known Allergies (Unverified , 05/18/17) Home Medications Scheduled Azithromycin (Azithromycin), 250 MG PO DIRECTED Desloratadine (Desloratadine), 5 MG PO QAM Diltiazem Hcl Ext Rel (Tiazac), 180 MG PO DAILY Home O2 Therapy (Oxygen), 2 LITERS NA CONTINOUS Nitroglycerin (Nitrostat), 0.4 MG UT PRN Prednisone (Prednisone), 10 MG PO QAM Probiotic Product (Probiotic), 1 TAB PO DAILY Sertraline (Zoloft), 100 MG PO HS Sotalol Hcl (Sotalol Hcl), 80 MG PO BID Umeclidinium-Vilanterol (Anoro Ellipta 62.5-25 Mcg/INH), 1 PUFF INH QAM Warfarin Sod (Jantoven), 5 MG PO QPM Scheduled PRN Furosemide (Lasix), 40 MG PO DAILY PRN for Edema Guaifenesin La (Guaifenesin Er), 600 MG PO Q12H PRN for Cough Ipratropium-Albuterol (Combivent Respimat), 1 PUFF INH QID PRN for Cough/SOB or Wheezing Ipratropium-Albuterol (Duoneb), 1 TREATMENT INH TID PRN for SOB/Wheezing Lorazepam (Lorazepam), 0.5 MG PO TID PRN for Anxiety/Shortness Of Breath Potassium Chloride (Potassium Chloride Er), 10 MEQ PO DAILY PRN for If Lasix Taken Prednisone (Prednisone), 40 MG PO DIRECTED PRN for COPD Current Inpatient Medications Current Inpatient Medications Medications (Trade) Dose Ordered Sig/Denisse Route Start Time Stop Time Status Last Admin Dose Admin Acetaminophen (Tylenol Tab) 650 mg Q4H PRN PO 12/17/17 11:30 01/16/18 11:29 12/20/17 00:00 650 MG Ondansetron HCl (Zofran Inj) 4 mg Q6H PRN IV 12/17/17 11:30 01/16/18 11:29 Polyethylene (Miralax Powder Packet) 17 gm DAILY PRN PO 12/17/17 11:30 01/16/18 11:29 Miscellaneous Information (Consult) 1 ea UD PRN N/A 12/17/17 11:30 01/16/18 11:29 Lorazepam (Ativan Tab) 0.5 mg TID PRN PO 12/17/17 11:30 01/16/18 11:29 12/24/17 21:04 0.5 MG Nitroglycerin (Nitrostat Tab) 0.4 mg PRN UT 12/17/17 11:30 01/16/18 11:29 Sertraline HCl (Zoloft Tab) 100 mg HS PO 12/17/17 21:00 01/16/18 20:59 12/24/17 21:03 100 MG Miscellaneous Information (Order Awaiting Action) 1 ea QS N/A 12/17/17 16:00 01/16/18 15:59 Saccharomyces Boulardii (Florastor Cap) 250 mg DAILY PO 12/18/17 09:00 01/17/18 08:59 12/25/17 08:04 250 MG Tramadol HCl (Ultram Tab) 50 mg Q4H PRN PO 12/17/17 14:00 01/16/18 13:59 Albuterol/ Ipratropium (Duoneb) 3 ml Q2H PRN INH 12/20/17 06:30 01/19/18 06:29 Heparin Sodium (Porcine) (Heparin Sq 5000 Unit/0.5ml) 5,000 unit Q12 SQ 12/24/17 09:00 01/23/18 08:59 12/25/17 08:04 5,000 UNIT Piperacillin Sod/ Tazobactam Sod 3.375 gm/Dextrose 115 ml @ 28.75 mls/ hr Q8H IV 12/24/17 21:00 01/03/18 20:59 12/25/17 12:42 28.75 MLS/HR Albuterol/ Ipratropium (Duoneb) 3 ml BIDR INH 12/25/17 20:00 01/24/18 19:59 Prednisone (PredniSONE TAB) 30 mg DAILY PO 12/26/17 09:00 01/25/18 08:59 Levalbuterol (Xopenex 0.63 Mg/ 3 Ml Neb) 0.63 mg Q6H PRN INH 12/25/17 16:00 01/24/18 15:59 Warfarin Sodium (Coumadin Tab) 5 mg DAILY@16 PO 12/25/17 16:00 01/24/18 15:59 12/25/17 16:38 5 MG Physical Exam Date Time Temp Pulse Resp B/P (MAP) Pulse Ox O2 Delivery O2 Flow Rate FiO2 12/25/17 16:00 Nasal Cannula 3.0 12/25/17 15:51 36.1 80 18 125/88 (100) 100 Nasal Cannula 3.0 12/25/17 15:24 79 16 99 Nasal Cannula 3.0 12/25/17 12:00 BiPAP 12/25/17 11:39 76 16 94 Nasal Cannula 4.0 12/25/17 11:05 36.5 77 18 108/67 (81) 97 Nasal Cannula 2.0 12/25/17 08:10 36.6 75 18 116/75 (89) 92 Nasal Cannula 2.0 12/25/17 08:00 BiPAP 12/25/17 07:14 81 18 96 Nasal Cannula 3.0 12/25/17 04:00 BiPAP 12/25/17 03:00 36.7 79 20 115/73 (87) 99 Nasal Cannula 2.0 12/25/17 00:00 BiPAP 12/24/17 20:00 Nasal Cannula 2.0 12/24/17 19:06 78 15 97 Nasal Cannula 2.0 12/24/17 18:43 36.5 76 20 108/66 (80) 97 Physical examination demonstrates non-palpable pedal pulses on the right due to severe edema. Left foot dorsalis pedis and posterior tibial pulses are +1/4. Hair growth is absent from the digits. CFT is less than 5 seconds b/l. Skin demonstrates diffuse dryness, scaling, and peeling, as well as erythema and calor to right foot and leg. Nails 1-5 b/l are thickened, painful, severely elongated, discolored with sunungual debris. Extremities/Musculoskelatal: + pedal edema, + slow capillary refill, + swelling Laboratory Results Last 24 Hours Test 12/25/17 06:14 White Blood Count 13.16 K/uL Red Blood Count 3.93 M/uL Hemoglobin 11.1 g/dL Hematocrit 35.9 % Mean Corpuscular Volume 91.3 fL Mean Corpuscular Hemoglobin 28.2 pg Mean Corpuscular Hemoglobin Concent 30.9 g/dl RDW Standard Deviation 44.3 fL RDW Coefficient of Variation 13.3 % Platelet Count 221 K/uL Mean Platelet Volume 8.4 fL Prothrombin Time 10.8 SECONDS Prothromb Time International Ratio 1.0 Sodium Level 139 mmol/L Potassium Level 4.4 mmol/L Chloride Level 104 mmol/L Carbon Dioxide Level 27 mmol/L Anion Gap 8.0 mmol/L Blood Urea Nitrogen 55 mg/dl Creatinine 4.01 mg/dl Est Creatinine Clear Calc Drug Dose 23.4 ml/min Estimated GFR () 17.4 Estimated GFR (Non- 15.0 BUN/Creatinine Ratio 13.8 Random Glucose 82 mg/dl Calcium Level 8.7 mg/dl Assessment & Plan (1) Tinea unguium Patient examined and evaluated. Debride nails 1-5 b/l in length and thickness without incidence. Patient tolerated this well. Recommend follow-up in our office for routine foot care. Thank you for this consult and allowing me to participate in patient's care.
--- NOTE | 2017-12-25 20:38 | Progress Note ---
Medicine Progress Note Date & Time of Visit: Dec 25, 2017 at 15:20 . Subjective CC: Follow-up visit for multiple problems. HPI: No new problems. No fever. Minimal cough. No SOB. No chest pain. Diarrhea improved. No nausea, vomiting. Urine output improved. No dysuria. ROS: General- as noted above in HPI Resp- as noted above in HPI Cardiac- as noted above in HPI GI- as noted above in HPI - as noted above in HPI . Objective Last 8 Hrs Date Time Temp Pulse Resp B/P (MAP) Pulse Ox O2 Delivery O2 Flow Rate FiO2 12/25/17 20:00 Nasal Cannula 3.0 12/25/17 19:46 36.6 75 16 133/74 (93) 95 Nasal Cannula 3.0 12/25/17 16:00 Nasal Cannula 3.0 12/25/17 15:51 36.1 80 18 125/88 (100) 100 Nasal Cannula 3.0 12/25/17 15:24 79 16 99 Nasal Cannula 3.0 Physical Exam: General- sitting in bed; no acute distress Lungs- essentially clear; mild wheezing, no respiratory distress Cardiovascular- RRR; no gallop; no JVD Abdomen- + bowel sounds, soft, nontender Extremities- no cyanosis; legs bandaged; lymphedema of lower extremities, R >> L ; toenails elongated and thickened Neuro- alert, oriented Skin- warm & dry . Laboratory Results: Last 24 Hours Test 12/25/17 06:14 White Blood Count 13.16 K/uL Red Blood Count 3.93 M/uL Hemoglobin 11.1 g/dL Hematocrit 35.9 % Mean Corpuscular Volume 91.3 fL Mean Corpuscular Hemoglobin 28.2 pg Mean Corpuscular Hemoglobin Concent 30.9 g/dl RDW Standard Deviation 44.3 fL RDW Coefficient of Variation 13.3 % Platelet Count 221 K/uL Mean Platelet Volume 8.4 fL Prothrombin Time 10.8 SECONDS Prothromb Time International Ratio 1.0 Sodium Level 139 mmol/L Potassium Level 4.4 mmol/L Chloride Level 104 mmol/L Carbon Dioxide Level 27 mmol/L Anion Gap 8.0 mmol/L Blood Urea Nitrogen 55 mg/dl Creatinine 4.01 mg/dl Est Creatinine Clear Calc Drug Dose 23.4 ml/min Estimated GFR () 17.4 Estimated GFR (Non- 15.0 BUN/Creatinine Ratio 13.8 Random Glucose 82 mg/dl Calcium Level 8.7 mg/dl Assessment & Plan PNEUMONIA, HEALTH CARE ACQUIRED (present on admission) Had cough at time of admission. Influenza PCR negative. Chest x-ray showed left mid and lower lung infiltrates. Blood cultures obtained (negative to date). Urine legionella Ag neg. Received IV vancomycin, piperacillin / tazobactam. Stopped vanco in light of KELY. Receiving piperacillin / tazobactam with improvement. Afebrile. Oxygenating well on NC. UTI (present on admission) UA on admission showed nitrites, leukocyte esterase, WBC's, bacterial. Urine culture grew Klebsiella pneumoniae sensitive to all antibiotics tested except for nitrofurantoin. Receiving piperacillin / tazobactam. CELLULITIS RLE (present on admission) Underlying marked lymphedema with ulcers. Wound Care consulted. Received IV vancomycin, piperacillin / tazobactam. Stopped vanco in light of KELY. C-reactive protein 12/17 was 13 --> 12/24 was 4.46. Continue piperacillin / tazobactam- today is day # 9 of tentative 14 day course. CHRONIC LYMPHEDEMA Wound Care consulted. ATRIAL FIBRILLATION Chronic. Stopped diltiazem in light of low blood pressures - discussed with Cardiology. EKG 12/21- NSR, QTc 473 msec. Holding sotalol due to rising creatinine. Held warfarin in case access needed for hemodialysis- should be OK to resume. COPD Exacerbation secondary to pneumonia. Finishing recent course of prednisone, but not on long-term Rx. Received IV methylprednisolone x 1. Started prednisone 40 mg daily, then taper as tolerated. Continue O2, nebs. ACUTE KIDNEY INJURY Serum creatinine 0.87 --> --> 4.16. Renal US neg for obstruction. FE Na 0.15% Stopped IV vancomycin. Nephrology consulted - input appreciated. No need for emergent dialysis. Furosemide held. IV fluids. Oliguric for several days; urine output now improved. Serum creatinine today = 4.01. Follow. LOOSE STOOLS Stools negative for C diff. VTE PROPHYLAXIS On warfarin at time of admission, held for possible procedures. SQ heparin. Resume warfarin. Ambulate as able. DISPOSITION To be determined. Internal Medicine follow-up with Dr. Jiménez. . Current Inpatient Medications: Current Inpatient Medications Medications (Trade) Dose Ordered Sig/Denisse Route Start Time Stop Time Status Last Admin Dose Admin Acetaminophen (Tylenol Tab) 650 mg Q4H PRN PO 12/17/17 11:30 01/16/18 11:29 12/20/17 00:00 650 MG Ondansetron HCl (Zofran Inj) 4 mg Q6H PRN IV 12/17/17 11:30 01/16/18 11:29 Polyethylene (Miralax Powder Packet) 17 gm DAILY PRN PO 12/17/17 11:30 01/16/18 11:29 Miscellaneous Information (Consult) 1 ea UD PRN N/A 12/17/17 11:30 01/16/18 11:29 Lorazepam (Ativan Tab) 0.5 mg TID PRN PO 12/17/17 11:30 01/16/18 11:29 12/24/17 21:04 0.5 MG Nitroglycerin (Nitrostat Tab) 0.4 mg PRN UT 12/17/17 11:30 01/16/18 11:29 Sertraline HCl (Zoloft Tab) 100 mg HS PO 12/17/17 21:00 01/16/18 20:59 12/24/17 21:03 100 MG Miscellaneous Information (Order Awaiting Action) 1 ea QS N/A 12/17/17 16:00 01/16/18 15:59 Saccharomyces Boulardii (Florastor Cap) 250 mg DAILY PO 12/18/17 09:00 01/17/18 08:59 12/25/17 08:04 250 MG Tramadol HCl (Ultram Tab) 50 mg Q4H PRN PO 12/17/17 14:00 01/16/18 13:59 Albuterol/ Ipratropium (Duoneb) 3 ml Q2H PRN INH 12/20/17 06:30 01/19/18 06:29 Heparin Sodium (Porcine) (Heparin Sq 5000 Unit/0.5ml) 5,000 unit Q12 SQ 12/24/17 09:00 01/23/18 08:59 12/25/17 08:04 5,000 UNIT Piperacillin Sod/ Tazobactam Sod 3.375 gm/Dextrose 115 ml @ 28.75 mls/ hr Q8H IV 12/24/17 21:00 01/03/18 20:59 12/25/17 12:42 28.75 MLS/HR Albuterol/ Ipratropium (Duoneb) 3 ml BIDR INH 12/25/17 20:00 01/24/18 19:59 12/25/17 20:10 3 ML Prednisone (PredniSONE TAB) 30 mg DAILY PO 12/26/17 09:00 01/25/18 08:59 Levalbuterol (Xopenex 0.63 Mg/ 3 Ml Neb) 0.63 mg Q6H PRN INH 12/25/17 16:00 01/24/18 15:59 Warfarin Sodium (Coumadin Tab) 5 mg DAILY@16 PO 12/25/17 16:00 01/24/18 15:59 12/25/17 16:38 5 MG
[2017-12-25] MEDS: LORAZEPAM 0.5 MG TAB PO PRN (20:39)
[2017-12-25] MEDS: SERTRALINE HCL 100 MG TAB PO SCH (21:18)
[2017-12-26] VITALS (11 sets, daily range): BP systolic 116–139; BP diastolic 63–83; PULSE 54–84; TEMP 36.4–37.3; O2SAT 93–100
[2017-12-26] MEDS: PIPERACILL/TAZOBAC IV 3.375 GM in DEXTROSE 5% 100ML 100 ML IV SCH ×3 (05:08→23:49)
[2017-12-26 07:02] LABS: INR 1.1 (0.9-1.1)
[2017-12-26 07:04] LABS: HEMOGLOBIN 11.6 g/dL (14.0-18.0); MEAN CELL VOLUME 91.1 fL (80-100); MEAN CORPUSCULAR HEMOGLOBIN 28.6 pg (25-34); MEAN CORPUSCULAR HGB CONC 31.4 g/dl (32-36); MEAN PLATELET VOLUME 8.6 fL (7.4-10.4); PLATELET COUNT 216 K/uL (130-400); RED CELL DISTRIBUTION WIDTH CV 13.4 % (11.5-14.5); RED CELL DISTRIBUTION WIDTH SD 44.2 fL (36.4-46.3); WHITE BLOOD COUNT 11.98 K/uL (4.8-10.8)
[2017-12-26] MEDS: ALBUT/IPRATROP 3MG/0.5MG NEB 3 ML VIAL INH SCH ×2 (07:34→20:58)
[2017-12-26 07:39] LABS: CALCIUM 8.6 mg/dl (8.5-10.1); CREATININE 4.16 mg/dl (0.60-1.40); POTASSIUM 4.8 mmol/L (3.5-5.1)
--- NOTE | 2017-12-26 10:17 | Nephrology Progress Note ---
Nephrology Progress Note Date of Service: Dec 26, 2017. Subjective 62 yo male with keaton with significant chronic lymphedema. on chronix oxygen with underlying emphysema with hx of aflutter/afib with hospital acquired pneumonia and klebsiella uti with atn. creatinine peaked and started to improve however has remained in the low 4s. urination has improved and symptomatically feels better. Objective Date Time Temp Pulse Resp B/P (MAP) Pulse Ox O2 Delivery O2 Flow Rate FiO2 12/26/17 07:34 82 16 98 Nasal Cannula 4.0 12/26/17 07:32 36.6 84 16 116/77 (90) 100 Mask 4.0 12/26/17 04:00 36.6 76 20 129/76 (93) 97 Nasal Cannula 2.0 12/26/17 04:00 Nasal Cannula 2.0 12/26/17 00:03 36.5 78 16 120/75 (90) 99 Nasal Cannula 2.0 12/26/17 00:00 Nasal Cannula 2.0 12/25/17 20:10 78 16 98 Nasal Cannula 3.0 12/25/17 20:00 Nasal Cannula 3.0 12/25/17 19:46 36.6 75 16 133/74 (93) 95 Nasal Cannula 3.0 12/25/17 16:00 Nasal Cannula 3.0 12/25/17 15:51 36.1 80 18 125/88 (100) 100 Nasal Cannula 3.0 12/25/17 15:24 79 16 99 Nasal Cannula 3.0 12/25/17 12:00 BiPAP 12/25/17 11:39 76 16 94 Nasal Cannula 4.0 12/25/17 11:05 36.5 77 18 108/67 (81) 97 Nasal Cannula 2.0 Physical Exam: General-aaox3 Eyes-no scleral icterus ENT-mmm Neck-supple Lungs-decreased at bases Heart-regular Abdomen-bs+ s/nt/nd Extremities-right leg lymphedema Neuro-nonfocal Current Inpatient Medications Medications (Trade) Dose Ordered Sig/Denisse Route Start Time Stop Time Status Last Admin Dose Admin Acetaminophen (Tylenol Tab) 650 mg Q4H PRN PO 12/17/17 11:30 01/16/18 11:29 12/20/17 00:00 650 MG Ondansetron HCl (Zofran Inj) 4 mg Q6H PRN IV 12/17/17 11:30 01/16/18 11:29 Polyethylene (Miralax Powder Packet) 17 gm DAILY PRN PO 12/17/17 11:30 01/16/18 11:29 Miscellaneous Information (Consult) 1 ea UD PRN N/A 12/17/17 11:30 01/16/18 11:29 Lorazepam (Ativan Tab) 0.5 mg TID PRN PO 12/17/17 11:30 01/16/18 11:29 12/25/17 20:39 0.5 MG Nitroglycerin (Nitrostat Tab) 0.4 mg PRN UT 12/17/17 11:30 01/16/18 11:29 Sertraline HCl (Zoloft Tab) 100 mg HS PO 12/17/17 21:00 01/16/18 20:59 12/25/17 21:18 100 MG Miscellaneous Information (Order Awaiting Action) 1 ea QS N/A 12/17/17 16:00 01/16/18 15:59 Saccharomyces Boulardii (Florastor Cap) 250 mg DAILY PO 12/18/17 09:00 01/17/18 08:59 12/25/17 08:04 250 MG Tramadol HCl (Ultram Tab) 50 mg Q4H PRN PO 12/17/17 14:00 01/16/18 13:59 Albuterol/ Ipratropium (Duoneb) 3 ml Q2H PRN INH 12/20/17 06:30 01/19/18 06:29 Heparin Sodium (Porcine) (Heparin Sq 5000 Unit/0.5ml) 5,000 unit Q12 SQ 12/24/17 09:00 01/23/18 08:59 12/25/17 08:04 5,000 UNIT Piperacillin Sod/ Tazobactam Sod 3.375 gm/Dextrose 115 ml @ 28.75 mls/ hr Q8H IV 12/24/17 21:00 01/03/18 20:59 12/26/17 05:08 28.75 MLS/HR Albuterol/ Ipratropium (Duoneb) 3 ml BIDR INH 12/25/17 20:00 01/24/18 19:59 12/26/17 07:34 3 ML Prednisone (PredniSONE TAB) 30 mg DAILY PO 12/26/17 09:00 01/25/18 08:59 Levalbuterol (Xopenex 0.63 Mg/ 3 Ml Neb) 0.63 mg Q6H PRN INH 12/25/17 16:00 01/24/18 15:59 Warfarin Sodium (Coumadin Tab) 5 mg DAILY@16 PO 12/25/17 16:00 01/24/18 15:59 12/25/17 16:38 5 MG Last 24 Hours Test 12/26/17 06:21 White Blood Count 11.98 K/uL Red Blood Count 4.06 M/uL Hemoglobin 11.6 g/dL Hematocrit 37.0 % Mean Corpuscular Volume 91.1 fL Mean Corpuscular Hemoglobin 28.6 pg Mean Corpuscular Hemoglobin Concent 31.4 g/dl RDW Standard Deviation 44.2 fL RDW Coefficient of Variation 13.4 % Platelet Count 216 K/uL Mean Platelet Volume 8.6 fL Prothrombin Time 11.4 SECONDS Prothromb Time International Ratio 1.1 Sodium Level 140 mmol/L Potassium Level 4.8 mmol/L Chloride Level 103 mmol/L Carbon Dioxide Level 31 mmol/L Anion Gap 6.0 mmol/L Blood Urea Nitrogen 58 mg/dl Creatinine 4.16 mg/dl Est Creatinine Clear Calc Drug Dose 22.6 ml/min Estimated GFR () 16.6 Estimated GFR (Non- 14.3 BUN/Creatinine Ratio 13.8 Random Glucose 77 mg/dl Calcium Level 8.6 mg/dl Assessment & Plan keaton/fou-xlh-dhuxwfnw-creatinine peaked and started to improve. however creatinine then has remained in the low 4s. would like to add albumin to see if we can mobilize the third spaced fluid and aide in renal recovery. off iv fluids. hopefully, creatinine continues to improve. if creatinine remains in the low 4s on albumin, may need to consider low rate of iv fluids again.
[2017-12-26] MEDS: SACCHAROMYCES BOUL (FLORASTOR) 250 MG CAP PO SCH (10:24)
[2017-12-26] MEDS: HEPARIN SOD 5000 UNIT/0.5 ML CARP SQ SCH ×2 (10:25→22:09)
[2017-12-26] MEDS: ALBUMIN HUMAN 25% 12.5 GM/50 ML VIAL IV SCH ×2 (13:41→22:12)
[2017-12-26] MEDS: WARFARIN SOD 5 MG TAB PO SCH (16:29)
--- NOTE | 2017-12-26 20:36 | Progress Note ---
Medicine Progress Note Date & Time of Visit: Dec 26, 2017 at 11:30 . Subjective CC: Follow-up visit for multiple problems. HPI: No fever. Occasional cough. No SOB. No chest pain. 1-2 loose stools / day. No nausea, vomiting. Urine output better. No dysuria. ROS: General- as noted above in HPI Resp- as noted above in HPI Cardiac- as noted above in HPI GI- as noted above in HPI - as noted above in HPI . Objective Last 8 Hrs Date Time Temp Pulse Resp B/P (MAP) Pulse Ox O2 Delivery O2 Flow Rate FiO2 12/26/17 20:00 Nasal Cannula 3.0 12/26/17 19:31 37.3 82 20 120/74 (89) 96 2.0 12/26/17 16:00 Nasal Cannula 3.0 12/26/17 15:57 37.1 78 16 119/74 (89) 98 Nasal Cannula 4.0 Physical Exam: General- sitting in bed; no acute distress Lungs- few rales left base, otherwise clear; mild wheezing, no respiratory distress Cardiovascular- RRR; no gallop; no JVD Abdomen- + bowel sounds, soft, nontender Extremities- no cyanosis; legs bandaged; lymphedema of lower extremities, R >> L ; toenails elongated and thickened Neuro- alert, oriented Skin- warm & dry . Laboratory Results: Last 24 Hours Test 12/26/17 06:21 White Blood Count 11.98 K/uL Red Blood Count 4.06 M/uL Hemoglobin 11.6 g/dL Hematocrit 37.0 % Mean Corpuscular Volume 91.1 fL Mean Corpuscular Hemoglobin 28.6 pg Mean Corpuscular Hemoglobin Concent 31.4 g/dl RDW Standard Deviation 44.2 fL RDW Coefficient of Variation 13.4 % Platelet Count 216 K/uL Mean Platelet Volume 8.6 fL Prothrombin Time 11.4 SECONDS Prothromb Time International Ratio 1.1 Sodium Level 140 mmol/L Potassium Level 4.8 mmol/L Chloride Level 103 mmol/L Carbon Dioxide Level 31 mmol/L Anion Gap 6.0 mmol/L Blood Urea Nitrogen 58 mg/dl Creatinine 4.16 mg/dl Est Creatinine Clear Calc Drug Dose 22.6 ml/min Estimated GFR () 16.6 Estimated GFR (Non- 14.3 BUN/Creatinine Ratio 13.8 Random Glucose 77 mg/dl Calcium Level 8.6 mg/dl Assessment & Plan PNEUMONIA, HEALTH CARE ACQUIRED (present on admission) Had cough at time of admission. Influenza PCR negative. Chest x-ray showed left mid and lower lung infiltrates. Blood cultures obtained (negative to date). Urine legionella Ag neg. Received IV vancomycin, piperacillin / tazobactam. Stopped vanco in light of KELY. Receiving piperacillin / tazobactam with improvement. Afebrile. Oxygenating well on NC. UTI (present on admission) UA on admission showed nitrites, leukocyte esterase, WBC's, bacterial. Urine culture grew Klebsiella pneumoniae sensitive to all antibiotics tested except for nitrofurantoin. Receiving piperacillin / tazobactam. CELLULITIS RLE (present on admission) Underlying marked lymphedema with ulcers. Wound Care consulted. Received IV vancomycin, piperacillin / tazobactam. Stopped vanco in light of KELY. C-reactive protein 12/17 was 13 --> 12/24 was 4.46. Continue piperacillin / tazobactam- today is day # 9 of tentative 14 day course. CHRONIC LYMPHEDEMA Wound Care consulted. ATRIAL FIBRILLATION Recent atrial fibrillation treated with sotalol and diltiazem. Stopped diltiazem in light of low blood pressures. EKG 12/21- NSR, QTc 473 msec. Holding sotalol due to rising creatinine. Held warfarin in case access needed for hemodialysis; resumed 12/25. COPD Exacerbation secondary to pneumonia. Finishing recent course of prednisone, but not on long-term Rx. Received IV methylprednisolone x 1. Started prednisone 40 mg daily, then taper as tolerated. Continue O2, nebs. ACUTE KIDNEY INJURY Serum creatinine 0.87 --> --> 4.16. Renal US neg for obstruction. FE Na 0.15% UA showed granular casts. Possible ATN due to infection(s) and / or vancomycin and / or volume depletion. Stopped IV vancomycin. Nephrology consulted - input appreciated. No need for emergent dialysis. Furosemide held. IV fluids. Oliguric for several days; urine output now improved. Serum creatinine today = 4.16. Follow. LOOSE STOOLS Stools negative for C diff. VTE PROPHYLAXIS On warfarin at time of admission, held for possible procedures. SQ heparin. Resumed warfarin 12/25. Ambulate as able. DISPOSITION Anticipated need for skilled care once medically stable. Internal Medicine follow-up with Dr. Jiménez. . Current Inpatient Medications: Current Inpatient Medications Medications (Trade) Dose Ordered Sig/Denisse Route Start Time Stop Time Status Last Admin Dose Admin Acetaminophen (Tylenol Tab) 650 mg Q4H PRN PO 12/17/17 11:30 01/16/18 11:29 12/20/17 00:00 650 MG Ondansetron HCl (Zofran Inj) 4 mg Q6H PRN IV 12/17/17 11:30 01/16/18 11:29 Polyethylene (Miralax Powder Packet) 17 gm DAILY PRN PO 12/17/17 11:30 01/16/18 11:29 Miscellaneous Information (Consult) 1 ea UD PRN N/A 12/17/17 11:30 01/16/18 11:29 Lorazepam (Ativan Tab) 0.5 mg TID PRN PO 12/17/17 11:30 01/16/18 11:29 12/25/17 20:39 0.5 MG Nitroglycerin (Nitrostat Tab) 0.4 mg PRN UT 12/17/17 11:30 01/16/18 11:29 Sertraline HCl (Zoloft Tab) 100 mg HS PO 12/17/17 21:00 01/16/18 20:59 12/25/17 21:18 100 MG Miscellaneous Information (Order Awaiting Action) 1 ea QS N/A 12/17/17 16:00 01/16/18 15:59 Saccharomyces Boulardii (Florastor Cap) 250 mg DAILY PO 12/18/17 09:00 01/17/18 08:59 12/26/17 10:24 250 MG Tramadol HCl (Ultram Tab) 50 mg Q4H PRN PO 12/17/17 14:00 01/16/18 13:59 Albuterol/ Ipratropium (Duoneb) 3 ml Q2H PRN INH 12/20/17 06:30 01/19/18 06:29 Heparin Sodium (Porcine) (Heparin Sq 5000 Unit/0.5ml) 5,000 unit Q12 SQ 12/24/17 09:00 01/23/18 08:59 12/26/17 10:25 5,000 UNIT Piperacillin Sod/ Tazobactam Sod 3.375 gm/Dextrose 115 ml @ 28.75 mls/ hr Q8H IV 12/24/17 21:00 01/03/18 20:59 12/26/17 13:41 28.75 MLS/HR Albuterol/ Ipratropium (Duoneb) 3 ml BIDR INH 12/25/17 20:00 01/24/18 19:59 12/26/17 07:34 3 ML Prednisone (PredniSONE TAB) 30 mg DAILY PO 12/26/17 09:00 01/25/18 08:59 12/26/17 10:24 30 MG Levalbuterol (Xopenex 0.63 Mg/ 3 Ml Neb) 0.63 mg Q6H PRN INH 12/25/17 16:00 01/24/18 15:59 Warfarin Sodium (Coumadin Tab) 5 mg DAILY@16 PO 12/25/17 16:00 01/24/18 15:59 12/26/17 16:29 5 MG Albumin Human (Albumin 25%) 12.5 gm BID IV 12/26/17 10:15 12/29/17 10:14 12/26/17 13:41 12.5 GM
[2017-12-26] MEDS: SERTRALINE HCL 100 MG TAB PO SCH (22:12)
[2017-12-27] VITALS (10 sets, daily range): BP systolic 111–145; BP diastolic 60–90; PULSE 75–87; TEMP 36.2–36.8; O2SAT 92–100
[2017-12-27 05:43] LABS: HEMOGLOBIN 11.5 g/dL (14.0-18.0); MEAN CELL VOLUME 90.9 fL (80-100); MEAN CORPUSCULAR HGB CONC 31.9 g/dl (32-36); MEAN PLATELET VOLUME 8.4 fL (7.4-10.4); PLATELET COUNT 219 K/uL (130-400); RED CELL DISTRIBUTION WIDTH CV 13.3 % (11.5-14.5); RED CELL DISTRIBUTION WIDTH SD 44.1 fL (36.4-46.3); WHITE BLOOD COUNT 11.62 K/uL (4.8-10.8)
[2017-12-27 06:07] LABS: INR 1.4 (0.9-1.1)
[2017-12-27 06:12] LABS: CALCIUM 8.9 mg/dl (8.5-10.1); CREATININE 3.6 mg/dl (0.60-1.40); POTASSIUM 4.6 mmol/L (3.5-5.1)
[2017-12-27] MEDS: PIPERACILL/TAZOBAC IV 3.375 GM in DEXTROSE 5% 100ML 100 ML IV SCH ×4 (07:01→23:32)
[2017-12-27] MEDS: ALBUT/IPRATROP 3MG/0.5MG NEB 3 ML VIAL INH SCH ×2 (07:07→19:09)
[2017-12-27] MEDS: SACCHAROMYCES BOUL (FLORASTOR) 250 MG CAP PO SCH (08:01)
[2017-12-27] MEDS: ALBUMIN HUMAN 25% 12.5 GM/50 ML VIAL IV SCH ×2 (08:02→20:52)
[2017-12-27] MEDS: HEPARIN SOD 5000 UNIT/0.5 ML CARP SQ SCH ×2 (08:06→20:57)
[2017-12-27] MEDS ORDERED: DILTIAZEM HCL 30 MG TAB PO ONE (14:18)
[2017-12-27] MEDS: WARFARIN SOD 5 MG TAB PO SCH (16:21)
[2017-12-27] MEDS: LORAZEPAM 0.5 MG TAB PO PRN (20:59)
[2017-12-27] MEDS: SERTRALINE HCL 100 MG TAB PO SCH (21:00)
[2017-12-27] MEDS: DILTIAZEM HCL 30 MG TAB PO SCH (21:00)
--- NOTE | 2017-12-27 21:05 | Progress Note ---
Medicine Progress Note Date & Time of Visit: Dec 27, 2017 at 11:40 . Subjective CC: Follow-up visit for multiple problems. HPI: No fever. Occasional cough. No SOB. No chest pain. 2 loose stools yesterday, 1 today so far. No nausea, vomiting. Urine output good. No dysuria. ROS: General- as noted above in HPI Resp- as noted above in HPI Cardiac- as noted above in HPI GI- as noted above in HPI - as noted above in HPI . Objective Last 8 Hrs Date Time Temp Pulse Resp B/P (MAP) Pulse Ox O2 Delivery O2 Flow Rate FiO2 12/27/17 20:00 Nasal Cannula 3.0 12/27/17 19:32 36.6 87 16 124/78 (93) 96 Nasal Cannula 3.0 12/27/17 19:20 85 16 93 Nasal Cannula 3.0 12/27/17 16:00 Nasal Cannula 3.0 12/27/17 15:31 36.6 80 20 125/60 (81) 97 Room Air 12/27/17 15:29 36.6 87 22 111/72 (85) 97 Nasal Cannula 3.0 Physical Exam: General- sitting in bed; no acute distress Lungs- few rales left base, otherwise clear; mild wheezing, no respiratory distress Cardiovascular- RRR; no gallop; no JVD Abdomen- + bowel sounds, soft, nontender Extremities- no cyanosis; legs bandaged; lymphedema of lower extremities, R >> L Neuro- alert, oriented Skin- warm & dry . Laboratory Results: Last 24 Hours Test 12/27/17 05:24 White Blood Count 11.62 K/uL Red Blood Count 3.96 M/uL Hemoglobin 11.5 g/dL Hematocrit 36.0 % Mean Corpuscular Volume 90.9 fL Mean Corpuscular Hemoglobin 29.0 pg Mean Corpuscular Hemoglobin Concent 31.9 g/dl RDW Standard Deviation 44.1 fL RDW Coefficient of Variation 13.3 % Platelet Count 219 K/uL Mean Platelet Volume 8.4 fL Prothrombin Time 14.7 SECONDS Prothromb Time International Ratio 1.4 Sodium Level 139 mmol/L Potassium Level 4.6 mmol/L Chloride Level 102 mmol/L Carbon Dioxide Level 30 mmol/L Anion Gap 7.0 mmol/L Blood Urea Nitrogen 51 mg/dl Creatinine 3.60 mg/dl Est Creatinine Clear Calc Drug Dose 26.1 ml/min Estimated GFR () 19.8 Estimated GFR (Non- 17.1 BUN/Creatinine Ratio 14.2 Random Glucose 79 mg/dl Calcium Level 8.9 mg/dl Assessment & Plan PNEUMONIA, HEALTH CARE ACQUIRED (present on admission) Had cough at time of admission. Influenza PCR negative. Chest x-ray showed left mid and lower lung infiltrates. Blood cultures obtained - negative. Urine legionella Ag neg. Received IV vancomycin, piperacillin / tazobactam. Stopped vanco in light of KELY. Receiving piperacillin / tazobactam with improvement. Afebrile. Oxygenating well on NC. UTI (present on admission) UA on admission showed nitrites, leukocyte esterase, WBC's, bacterial. Urine culture grew Klebsiella pneumoniae sensitive to all antibiotics tested except for nitrofurantoin. Receiving piperacillin / tazobactam. CELLULITIS RLE (present on admission) Underlying marked lymphedema with ulcers. Wound Care consulted. Received IV vancomycin, piperacillin / tazobactam. Stopped vanco in light of KELY. C-reactive protein 12/17 was 13 --> 12/24 was 4.46. Continue piperacillin / tazobactam- today is day # 10 of tentative 14 day course. CHRONIC LYMPHEDEMA Wound Care consulted. ATRIAL FIBRILLATION Recent atrial fibrillation treated with sotalol and diltiazem. Stopped diltiazem in light of low blood pressures. EKG 12/21- NSR, QTc 473 msec. Holding sotalol due to rising creatinine. Held warfarin in case access needed for hemodialysis; resumed 12/25. COPD Exacerbation secondary to pneumonia. Finishing recent course of prednisone, but not on long-term Rx. Received IV methylprednisolone x 1. Started prednisone 40 mg daily; taper as tolerated. Continue O2, nebs. CHRONIC HYPOXIC AND HYPERCAPNIC RESPIRATORY FAILURE Continue O2 and BiPAP. ACUTE KIDNEY INJURY Serum creatinine 0.87 --> --> 4.16. Renal US neg for obstruction. FE Na 0.15% UA showed hyaline casts. Possible ATN due to infection(s) and / or vancomycin and / or volume depletion. Stopped IV vancomycin. Nephrology consulted - input appreciated. No need for emergent dialysis. Furosemide held. IV fluids. Oliguric for several days; urine output now improved. Serum creatinine today = 3.60. Follow. LOOSE STOOLS Stools negative for C diff. VTE PROPHYLAXIS On warfarin at time of admission, held for possible procedures. SQ heparin. Resumed warfarin 12/25. Ambulate as able. DISPOSITION Anticipated need for skilled care once medically stable. Internal Medicine follow-up with Dr. Jiménez. . Current Inpatient Medications: Current Inpatient Medications Medications (Trade) Dose Ordered Sig/Denisse Route Start Time Stop Time Status Last Admin Dose Admin Acetaminophen (Tylenol Tab) 650 mg Q4H PRN PO 12/17/17 11:30 01/16/18 11:29 12/20/17 00:00 650 MG Ondansetron HCl (Zofran Inj) 4 mg Q6H PRN IV 12/17/17 11:30 01/16/18 11:29 Polyethylene (Miralax Powder Packet) 17 gm DAILY PRN PO 12/17/17 11:30 01/16/18 11:29 Miscellaneous Information (Consult) 1 ea UD PRN N/A 12/17/17 11:30 01/16/18 11:29 Lorazepam (Ativan Tab) 0.5 mg TID PRN PO 12/17/17 11:30 01/16/18 11:29 12/25/17 20:39 0.5 MG Nitroglycerin (Nitrostat Tab) 0.4 mg PRN UT 12/17/17 11:30 01/16/18 11:29 Sertraline HCl (Zoloft Tab) 100 mg HS PO 12/17/17 21:00 01/16/18 20:59 12/26/17 22:12 100 MG Miscellaneous Information (Order Awaiting Action) 1 ea QS N/A 12/17/17 16:00 01/16/18 15:59 Saccharomyces Boulardii (Florastor Cap) 250 mg DAILY PO 12/18/17 09:00 01/17/18 08:59 12/27/17 08:01 250 MG Tramadol HCl (Ultram Tab) 50 mg Q4H PRN PO 12/17/17 14:00 01/16/18 13:59 Albuterol/ Ipratropium (Duoneb) 3 ml Q2H PRN INH 12/20/17 06:30 01/19/18 06:29 Heparin Sodium (Porcine) (Heparin Sq 5000 Unit/0.5ml) 5,000 unit Q12 SQ 12/24/17 09:00 01/23/18 08:59 12/27/17 08:06 5,000 UNIT Piperacillin Sod/ Tazobactam Sod 3.375 gm/Dextrose 115 ml @ 28.75 mls/ hr Q8H IV 12/24/17 21:00 01/03/18 20:59 12/27/17 13:44 28.75 MLS/HR Albuterol/ Ipratropium (Duoneb) 3 ml BIDR INH 12/25/17 20:00 01/24/18 19:59 12/27/17 19:09 3 ML Prednisone (PredniSONE TAB) 30 mg DAILY PO 12/26/17 09:00 01/25/18 08:59 12/27/17 08:00 30 MG Levalbuterol (Xopenex 0.63 Mg/ 3 Ml Neb) 0.63 mg Q6H PRN INH 12/25/17 16:00 01/24/18 15:59 Warfarin Sodium (Coumadin Tab) 5 mg DAILY@16 PO 12/25/17 16:00 01/24/18 15:59 12/27/17 16:21 5 MG Albumin Human (Albumin 25%) 12.5 gm BID IV 12/26/17 10:15 12/29/17 10:14 12/27/17 08:02 12.5 GM Diltiazem HCl (Cardizem Tab) 30 mg TID PO 12/27/17 21:00 01/26/18 20:59
[2017-12-28] VITALS (14 sets, daily range): BP systolic 113–150; BP diastolic 71–88; PULSE 69–97; TEMP 36.4–36.9; O2SAT 96–100
[2017-12-28] MEDS: PIPERACILL/TAZOBAC IV 3.375 GM in DEXTROSE 5% 100ML 100 ML IV SCH ×3 (04:51→21:31)
[2017-12-28 06:36] LABS: INR 1.7 (0.9-1.1)
[2017-12-28 07:05] LABS: CALCIUM 8.6 mg/dl (8.5-10.1); CREATININE 3.4 mg/dl (0.60-1.40); POTASSIUM 4.6 mmol/L (3.5-5.1)
[2017-12-28] MEDS: ALBUT/IPRATROP 3MG/0.5MG NEB 3 ML VIAL INH SCH ×2 (07:14→19:54)
[2017-12-28] MEDS: ALBUMIN HUMAN 25% 12.5 GM/50 ML VIAL IV SCH ×2 (09:58→21:32)
[2017-12-28] MEDS: DILTIAZEM HCL 30 MG TAB PO SCH ×3 (09:59→21:28)
[2017-12-28] MEDS: SACCHAROMYCES BOUL (FLORASTOR) 250 MG CAP PO SCH (09:59)
[2017-12-28] MEDS: HEPARIN SOD 5000 UNIT/0.5 ML CARP SQ SCH ×2 (10:01→21:00)
[2017-12-28] MEDS: WARFARIN SOD 5 MG TAB PO SCH (15:35)
[2017-12-28] MEDS: ACETAMINOPHEN 325 MG TAB PO PRN (19:35)
--- NOTE | 2017-12-28 19:49 | Progress Note ---
Medicine Progress Note Date & Time of Visit: Dec 28, 2017 at 11:45 . Subjective CC: Follow-up visit for multiple problems. HPI: No fever. Occasional cough. No SOB. Wearing No chest pain. Loose stools this morning. No nausea, vomiting. Urine output good. No dysuria. Legs feel the same; trying to elevate when possible. ROS: General- as noted above in HPI Resp- as noted above in HPI Cardiac- as noted above in HPI GI- as noted above in HPI - as noted above in HPI . Objective Last 8 Hrs Date Time Temp Pulse Resp B/P (MAP) Pulse Ox O2 Delivery O2 Flow Rate FiO2 12/28/17 16:00 96 Nasal Cannula 3.0 12/28/17 15:23 36.6 95 20 150/88 (108) 99 Nasal Cannula 4.0 12/28/17 14:04 86 125/77 (93) 12/28/17 12:25 36.5 97 20 124/78 (93) 98 Nasal Cannula 4.0 12/28/17 12:00 Nasal Cannula 3.0 Physical Exam: General- sitting in bed; no acute distress Lungs- few rales left base, otherwise clear; mild wheezing, no respiratory distress Cardiovascular- RRR; no gallop; no JVD Abdomen- + bowel sounds, soft, nontender Extremities- no cyanosis; marked lymphedema RLE with erythema below knee; shallow ulcers left posterior calf, less erythema Neuro- alert, oriented Skin- warm & dry . Laboratory Results: Last 24 Hours Test 12/28/17 06:04 Prothrombin Time 18.1 SECONDS Prothromb Time International Ratio 1.7 Sodium Level 140 mmol/L Potassium Level 4.6 mmol/L Chloride Level 103 mmol/L Carbon Dioxide Level 32 mmol/L Anion Gap 4.0 mmol/L Blood Urea Nitrogen 49 mg/dl Creatinine 3.40 mg/dl Est Creatinine Clear Calc Drug Dose 27.6 ml/min Estimated GFR () 21.2 Estimated GFR (Non- 18.3 BUN/Creatinine Ratio 14.4 Random Glucose 77 mg/dl Calcium Level 8.6 mg/dl Assessment & Plan PNEUMONIA, HEALTH CARE ACQUIRED (present on admission) Had cough at time of admission. Influenza PCR negative. Chest x-ray showed left mid and lower lung infiltrates. Blood cultures obtained - negative. Urine legionella Ag neg. Received IV vancomycin, piperacillin / tazobactam. Stopped vanco in light of KELY. Receiving piperacillin / tazobactam with improvement. Afebrile. Oxygenating well on NC. UTI (present on admission) UA on admission showed nitrites, leukocyte esterase, WBC's, bacterial. Urine culture grew Klebsiella pneumoniae sensitive to all antibiotics tested except for nitrofurantoin. Receiving piperacillin / tazobactam. CELLULITIS RLE (present on admission) Underlying marked lymphedema with ulcers. Wound Care consulted. Received IV vancomycin, piperacillin / tazobactam. Stopped vanco in light of KELY. C-reactive protein 13 on 12/17 --> 4.46 on 12/24.. Continue piperacillin / tazobactam- today is day # 11 of tentative 14 day course. CHRONIC LYMPHEDEMA Wound Care consulted. ATRIAL FIBRILLATION Recent atrial fibrillation treated with sotalol and diltiazem. Stopped diltiazem in light of low blood pressures. EKG 12/21- NSR, QTc 473 msec. Holding sotalol due to rising creatinine. Held warfarin in case access needed for hemodialysis; resumed 12/25. COPD Exacerbation secondary to pneumonia. Finishing recent course of prednisone, but not on long-term Rx. Received IV methylprednisolone x 1. Started prednisone 40 mg daily; taper as tolerated. Continue O2, nebs. CHRONIC HYPOXIC AND HYPERCAPNIC RESPIRATORY FAILURE Continue O2 and BiPAP. ACUTE KIDNEY INJURY Serum creatinine 0.87 --> --> 4.16. Renal US neg for obstruction. FE Na 0.15% UA showed hyaline casts. Possible ATN due to infection(s) and / or vancomycin and / or volume depletion. Stopped IV vancomycin. Nephrology consulted - input appreciated. No need for emergent dialysis. Furosemide held. IV fluids. Oliguric for several days; urine output now improved. Serum creatinine today = 3.40. Follow. LOOSE STOOLS Stools negative for C diff. VTE PROPHYLAXIS On warfarin at time of admission, held for possible procedures. SQ heparin. Resumed warfarin 12/25. Ambulate as able. DISPOSITION Anticipated need for skilled care once medically stable. Internal Medicine follow-up with Dr. Jiménez. . Current Inpatient Medications: Current Inpatient Medications Medications (Trade) Dose Ordered Sig/Denisse Route Start Time Stop Time Status Last Admin Dose Admin Acetaminophen (Tylenol Tab) 650 mg Q4H PRN PO 12/17/17 11:30 01/16/18 11:29 12/28/17 19:35 650 MG Ondansetron HCl (Zofran Inj) 4 mg Q6H PRN IV 12/17/17 11:30 01/16/18 11:29 Polyethylene (Miralax Powder Packet) 17 gm DAILY PRN PO 12/17/17 11:30 01/16/18 11:29 Miscellaneous Information (Consult) 1 ea UD PRN N/A 12/17/17 11:30 01/16/18 11:29 Lorazepam (Ativan Tab) 0.5 mg TID PRN PO 12/17/17 11:30 01/16/18 11:29 12/27/17 20:59 0.5 MG Nitroglycerin (Nitrostat Tab) 0.4 mg PRN UT 12/17/17 11:30 01/16/18 11:29 Sertraline HCl (Zoloft Tab) 100 mg HS PO 12/17/17 21:00 01/16/18 20:59 12/27/17 21:00 100 MG Miscellaneous Information (Order Awaiting Action) 1 ea QS N/A 12/17/17 16:00 01/16/18 15:59 Saccharomyces Boulardii (Florastor Cap) 250 mg DAILY PO 12/18/17 09:00 01/17/18 08:59 12/28/17 09:59 250 MG Tramadol HCl (Ultram Tab) 50 mg Q4H PRN PO 12/17/17 14:00 01/16/18 13:59 Albuterol/ Ipratropium (Duoneb) 3 ml Q2H PRN INH 12/20/17 06:30 01/19/18 06:29 Heparin Sodium (Porcine) (Heparin Sq 5000 Unit/0.5ml) 5,000 unit Q12 SQ 12/24/17 09:00 01/23/18 08:59 12/28/17 10:01 5,000 UNIT Piperacillin Sod/ Tazobactam Sod 3.375 gm/Dextrose 115 ml @ 28.75 mls/ hr Q8H IV 12/24/17 21:00 01/03/18 20:59 12/28/17 12:24 28.75 MLS/HR Albuterol/ Ipratropium (Duoneb) 3 ml BIDR INH 12/25/17 20:00 01/24/18 19:59 12/28/17 07:14 3 ML Prednisone (PredniSONE TAB) 30 mg DAILY PO 12/26/17 09:00 01/25/18 08:59 12/28/17 09:59 30 MG Levalbuterol (Xopenex 0.63 Mg/ 3 Ml Neb) 0.63 mg Q6H PRN INH 12/25/17 16:00 01/24/18 15:59 Warfarin Sodium (Coumadin Tab) 5 mg DAILY@16 PO 12/25/17 16:00 01/24/18 15:59 12/28/17 15:35 5 MG Albumin Human (Albumin 25%) 12.5 gm BID IV 12/26/17 10:15 12/29/17 10:14 12/28/17 09:58 12.5 GM Diltiazem HCl (Cardizem Tab) 30 mg TID PO 12/27/17 21:00 01/26/18 20:59 12/28/17 14:04 30 MG
[2017-12-28] MEDS: LORAZEPAM 0.5 MG TAB PO PRN (21:27)
[2017-12-28] MEDS: SERTRALINE HCL 100 MG TAB PO SCH (21:28)
[2017-12-28] MEDS: DIPHENOXYLATE/ATROPINE 2.5/0.025MG TAB PO SCH (21:31)
[2017-12-29] VITALS (11 sets, daily range): BP systolic 97–131; BP diastolic 63–81; PULSE 73–90; TEMP 36.4–37; O2SAT 92–100
[2017-12-29] MEDS: PIPERACILL/TAZOBAC IV 3.375 GM in DEXTROSE 5% 100ML 100 ML IV SCH ×3 (05:21→20:49)
[2017-12-29 05:48] LABS: INR 2.1 (0.9-1.1)
[2017-12-29 06:04] LABS: CALCIUM 8.5 mg/dl (8.5-10.1); CREATININE 3.41 mg/dl (0.60-1.40); POTASSIUM 4.7 mmol/L (3.5-5.1)
[2017-12-29] MEDS: ALBUT/IPRATROP 3MG/0.5MG NEB 3 ML VIAL INH SCH ×2 (07:00→19:16)
[2017-12-29] MEDS: DIPHENOXYLATE/ATROPINE 2.5/0.025MG TAB PO SCH ×2 (08:08→20:53)
[2017-12-29] MEDS: SACCHAROMYCES BOUL (FLORASTOR) 250 MG CAP PO SCH (08:08)
[2017-12-29] MEDS: DILTIAZEM HCL 30 MG TAB PO SCH ×3 (08:09→20:53)
[2017-12-29] MEDS: HEPARIN SOD 5000 UNIT/0.5 ML CARP SQ SCH ×2 (08:12→21:06)
[2017-12-29] MEDS: ALBUMIN HUMAN 25% 12.5 GM/50 ML VIAL IV SCH (09:23)
[2017-12-29] MEDS: WARFARIN SOD 2.5 MG TAB PO SCH (16:23)
--- NOTE | 2017-12-29 19:46 | Progress Note ---
Internal Med Progress Note Date of Service: Dec 29, 2017. Provider Documentation: SUBJECTIVE: resting comfortably says his swelling in left leg improved better denies any dizziness no sob or chest pain eating ok afebrile no nausea OBJECTIVE: Vital Signs-as noted below Exam: General-alert and oriented. Not in distress ENT-Normal hearing Neck-no neck masses Lungs-cta b/l no wheezing or crackles Heart-S 1 and S 2heard regular rate and rhythm no murmurs Abdomen-soft bowel sounds present non tender no distension Extremities-b/l lower extremity edema present more on right leg-in wraps Neuro-alert and awake moves extremities Lab data as noted below. ASSESSMENT & PLAN: PNEUMONIA, HEALTH CARE ACQUIRED (present on admission) Chest x-ray showed left mid and lower lung infiltrates. Blood cultures - negative. Urine legionella Ag neg. Initially received IV vancomycin, piperacillin / tazobactam. Iv vanco was stopped secondary to KELY. Currently on piperacillin / tazobactam -improving to continue same. UTI (present on admission) Urine culture growing sprague sensitive Klebsiella pneumoniae on iv abx as above CELLULITIS RLE (present on admission) Underlying marked lymphedema with ulcers. Wound Care consulted. Initially received IV vancomycin, piperacillin / tazobactam. Iv vanco was stopped secondary to KELY. To Continue piperacillin / tazobactam- today is day # 12 plan for 14 day course. CHRONIC LYMPHEDEMA Wound Care consulted. ATRIAL FIBRILLATION Recent atrial fibrillation treated with sotalol and diltiazem. Diltiazem was stopped secondary to low blood pressures but was restarted at 30mg qid. EKG 12/21- NSR, QTc 473 msec. Holding sotalol due to rising creatinine. Warfarin was held for any need for hemodialysis but was resumed 12/25. INR 2.1 today COPD Exacerbation secondary to pneumonia. stable currently Started prednisone 40 mg daily; taper as tolerated. Continue O2, nebs. CHRONIC HYPOXIC AND HYPERCAPNIC RESPIRATORY FAILURE Continue O2 and BiPAP. ACUTE KIDNEY INJURY Serum creatinine 0.87 --> --> 4.16. Renal US neg for obstruction. Most likely ATN due to infection(s) and / or vancomycin and / or volume depletion. Stopped IV vancomycin. Nephrology consulted and appreciate inputs. Lasix held. received IV fluids. urine output now improving Serum creatinine today = 3.40. will f/u abs LOOSE STOOLS Stools negative for C diff. VTE PROPHYLAXIS on coumadin Ambulate as able. DISPOSITION Anticipated need for skilled care once medically stable. Internal Medicine follow-up with Dr. Jiménez. . Vital Signs: Date Time Temp Pulse Resp B/P (MAP) Pulse Ox O2 Delivery O2 Flow Rate FiO2 12/29/17 19:18 83 16 98 Nasal Cannula 4.0 12/29/17 16:00 Nasal Cannula 3.0 12/29/17 15:15 36.5 90 18 116/71 (86) 94 Nasal Cannula 3.5 12/29/17 13:12 83 111/71 (84) 12/29/17 12:30 36.6 73 18 103/65 (78) 100 Nasal Cannula 4.0 12/29/17 12:00 Nasal Cannula 3.0 12/29/17 09:17 77 113/67 (82) 12/29/17 08:03 36.5 77 18 129/74 (92) 100 12/29/17 08:00 Nasal Cannula 3.0 12/29/17 07:00 73 16 99 Nasal Cannula 3.0 12/29/17 04:00 Nasal Cannula 3.0 12/29/17 03:10 36.5 74 18 97/63 (74) 99 CPAP 12/29/17 00:00 Nasal Cannula 3.0 12/28/17 23:56 98 2.0 12/28/17 23:45 36.8 80 20 113/74 (87) 96 CPAP 12/28/17 22:25 36.4 80 20 116/71 (86) 99 Nasal Cannula 3.0 12/28/17 21:30 36.7 76 20 118/74 (89) 98 Nasal Cannula 3.0 12/28/17 20:00 Nasal Cannula 3.0 12/28/17 19:54 78 16 98 Nasal Cannula 3.0 12/28/17 19:51 36.7 81 18 129/79 (96) 98 Nasal Cannula 3.0 Lab Results: Results Past 24 Hours Test 12/29/17 05:23 Range/Units Prothrombin Time 21.5 9.0-12.0 SECONDS Prothromb Time International Ratio 2.1 0.9-1.1 Sodium Level 139 136-145 mmol/L Potassium Level 4.7 3.5-5.1 mmol/L Chloride Level 104 98-107 mmol/L Carbon Dioxide Level 31 21-32 mmol/L Anion Gap 4.0 3-11 mmol/L Blood Urea Nitrogen 51 7-18 mg/dl Creatinine 3.41 0.60-1.40 mg/dl Est Creatinine Clear Calc Drug Dose 27.6 ml/min Estimated GFR () 21.1 Estimated GFR (Non- 18.2 BUN/Creatinine Ratio 14.9 10-20 Random Glucose 85 70-99 mg/dl Calcium Level 8.5 8.5-10.1 mg/dl
[2017-12-29] MEDS: SODIUM CHLORIDE 0.9% 1000ML 1,000 ML IV SCH (20:47)
[2017-12-29] MEDS: SERTRALINE HCL 100 MG TAB PO SCH (20:53)
[2017-12-29] MEDS: LORAZEPAM 0.5 MG TAB PO PRN (20:55)
[2017-12-30] VITALS (12 sets, daily range): BP systolic 120–146; BP diastolic 71–86; PULSE 59–97; TEMP 36.5–36.9; O2SAT 92–100
[2017-12-30] MEDS: PIPERACILL/TAZOBAC IV 3.375 GM in DEXTROSE 5% 100ML 100 ML IV SCH ×3 (05:02→21:48)
[2017-12-30] MEDS: ALBUT/IPRATROP 3MG/0.5MG NEB 3 ML VIAL INH SCH ×3 (07:23→19:21)
[2017-12-30] MEDS: SACCHAROMYCES BOUL (FLORASTOR) 250 MG CAP PO SCH (09:06)
[2017-12-30] MEDS: ALBUMIN HUMAN 25% 12.5 GM/50 ML VIAL IV SCH ×2 (09:06→20:03)
[2017-12-30] MEDS: DILTIAZEM HCL 30 MG TAB PO SCH ×3 (09:07→21:47)
[2017-12-30] MEDS: HEPARIN SOD 5000 UNIT/0.5 ML CARP SQ SCH (09:12)
[2017-12-30 09:42] LABS: HEMOGLOBIN 10.3 g/dL (14.0-18.0); MEAN CELL VOLUME 92.9 fL (80-100); MEAN CORPUSCULAR HEMOGLOBIN 28.1 pg (25-34); MEAN CORPUSCULAR HGB CONC 30.3 g/dl (32-36); MEAN PLATELET VOLUME 8.7 fL (7.4-10.4); PLATELET COUNT 194 K/uL (130-400); RED CELL DISTRIBUTION WIDTH CV 13.8 % (11.5-14.5); RED CELL DISTRIBUTION WIDTH SD 46.2 fL (36.4-46.3); WHITE BLOOD COUNT 11.22 K/uL (4.8-10.8)
[2017-12-30 09:52] LABS: INR 2.4 (0.9-1.1)
[2017-12-30 10:13] LABS: CALCIUM 8.6 mg/dl (8.5-10.1); CREATININE 2.99 mg/dl (0.60-1.40); POTASSIUM 4.3 mmol/L (3.5-5.1)
[2017-12-30] MEDS: SODIUM CHLORIDE 0.9% 1000ML 1,000 ML IV SCH (16:00)
[2017-12-30] MEDS: WARFARIN SOD 2.5 MG TAB PO SCH (16:15)
--- NOTE | 2017-12-30 19:04 | Progress Note ---
Medicine Progress Note Date & Time of Visit: Dec 30, 2017 at 11:50 . Subjective CC: Follow-up visit for multiple problems. HPI: No fever. Occasional cough. No SOB. No chest pain. No nausea, vomiting. Diarrhea improved. Urine output good. No dysuria. Trying to elevate legs when possible. ROS: General- as noted above in HPI Resp- as noted above in HPI Cardiac- as noted above in HPI GI- as noted above in HPI - as noted above in HPI . Objective Last 8 Hrs Date Time Temp Pulse Resp B/P (MAP) Pulse Ox O2 Delivery O2 Flow Rate FiO2 12/30/17 16:00 100 Nasal Cannula 3.0 12/30/17 15:46 36.9 97 18 134/81 (98) 100 Nasal Cannula 3.0 12/30/17 14:24 80 16 98 Nasal Cannula 3.0 12/30/17 12:12 36.6 59 22 146/77 (100) 92 Nasal Cannula 2.0 12/30/17 12:00 92 Nasal Cannula 2.0 Physical Exam: General- sitting in bed; no acute distress Lungs- few rales left base; mild wheezing, no respiratory distress Cardiovascular- RRR; no gallop; no JVD Abdomen- + bowel sounds, soft, nontender Extremities- no cyanosis; marked lymphedema RLE > LLE; legs bandaged Neuro- alert, oriented Skin- warm & dry . Laboratory Results: Last 24 Hours Test 12/30/17 09:02 White Blood Count 11.22 K/uL Red Blood Count 3.66 M/uL Hemoglobin 10.3 g/dL Hematocrit 34.0 % Mean Corpuscular Volume 92.9 fL Mean Corpuscular Hemoglobin 28.1 pg Mean Corpuscular Hemoglobin Concent 30.3 g/dl RDW Standard Deviation 46.2 fL RDW Coefficient of Variation 13.8 % Platelet Count 194 K/uL Mean Platelet Volume 8.7 fL Prothrombin Time 24.3 SECONDS Prothromb Time International Ratio 2.4 Sodium Level 139 mmol/L Potassium Level 4.3 mmol/L Chloride Level 101 mmol/L Carbon Dioxide Level 32 mmol/L Anion Gap 6.0 mmol/L Blood Urea Nitrogen 43 mg/dl Creatinine 2.99 mg/dl Est Creatinine Clear Calc Drug Dose 31.4 ml/min Estimated GFR () 24.8 Estimated GFR (Non- 21.4 BUN/Creatinine Ratio 14.2 Random Glucose 123 mg/dl Calcium Level 8.6 mg/dl Assessment & Plan PNEUMONIA, HEALTH CARE ACQUIRED (present on admission) Had cough at time of admission. Influenza PCR negative. Chest x-ray showed left mid and lower lung infiltrates. Blood cultures obtained - negative. Urine legionella Ag neg. Received IV vancomycin, piperacillin / tazobactam. Stopped vanco in light of KELY. Receiving piperacillin / tazobactam with improvement. Afebrile. Oxygenating well on NC. UTI (present on admission) UA on admission showed nitrites, leukocyte esterase, WBC's, bacterial. Urine culture grew Klebsiella pneumoniae sensitive to all antibiotics tested except for nitrofurantoin. Receiving piperacillin / tazobactam. CELLULITIS RLE (present on admission) Underlying marked lymphedema with ulcers. Wound Care consulted. Received IV vancomycin, piperacillin / tazobactam. Stopped vanco in light of KELY. C-reactive protein 13 on 12/17 --> 4.46 on 12/24.. Continue piperacillin / tazobactam- today is day # 13 of tentative 14 day course. CHRONIC LYMPHEDEMA Wound Care consulted. ATRIAL FIBRILLATION Recent atrial fibrillation treated with sotalol and diltiazem. Stopped diltiazem in light of low blood pressures. Discontinued sotalol due to KELY. Held warfarin in case access needed for hemodialysis; resumed 12/25. Diltiazem resumed at reduced dose. COPD Exacerbation secondary to pneumonia. Finishing recent course of prednisone, but not on long-term Rx. Received IV methylprednisolone x 1. Started prednisone 40 mg daily; taper as tolerated. Continue O2, nebs. CHRONIC HYPOXIC AND HYPERCAPNIC RESPIRATORY FAILURE Continue O2 and BiPAP. ACUTE KIDNEY INJURY Serum creatinine 0.87 --> --> 4.16. Renal US neg for obstruction. FE Na 0.15% UA showed hyaline casts. Possible ATN due to infection(s) and / or vancomycin and / or volume depletion. Stopped IV vancomycin. Nephrology consulted - input appreciated. No need for emergent dialysis. Furosemide held. IV fluids. Oliguric for several days; urine output now improved. Serum creatinine today = 2.99. Follow. LOOSE STOOLS Stools negative for C diff. VTE PROPHYLAXIS On warfarin at time of admission, held for possible procedures. Received SQ heparin. Resumed warfarin 12/25. SQ heparin stopped when INR therapeutic. Ambulate as able. DISPOSITION Anticipated need for skilled care once medically stable. Internal Medicine follow-up with Dr. Jiménez. . Current Inpatient Medications: Current Inpatient Medications Medications (Trade) Dose Ordered Sig/Denisse Route Start Time Stop Time Status Last Admin Dose Admin Acetaminophen (Tylenol Tab) 650 mg Q4H PRN PO 12/17/17 11:30 01/16/18 11:29 12/28/17 19:35 650 MG Ondansetron HCl (Zofran Inj) 4 mg Q6H PRN IV 12/17/17 11:30 01/16/18 11:29 Polyethylene (Miralax Powder Packet) 17 gm DAILY PRN PO 12/17/17 11:30 01/16/18 11:29 Miscellaneous Information (Consult) 1 ea UD PRN N/A 12/17/17 11:30 01/16/18 11:29 Lorazepam (Ativan Tab) 0.5 mg TID PRN PO 12/17/17 11:30 01/16/18 11:29 12/29/17 20:55 0.5 MG Nitroglycerin (Nitrostat Tab) 0.4 mg PRN UT 12/17/17 11:30 01/16/18 11:29 Sertraline HCl (Zoloft Tab) 100 mg HS PO 12/17/17 21:00 01/16/18 20:59 12/29/17 20:53 100 MG Miscellaneous Information (Order Awaiting Action) 1 ea QS N/A 12/17/17 16:00 01/16/18 15:59 Saccharomyces Boulardii (Florastor Cap) 250 mg DAILY PO 12/18/17 09:00 01/17/18 08:59 12/30/17 09:06 250 MG Tramadol HCl (Ultram Tab) 50 mg Q4H PRN PO 12/17/17 14:00 01/16/18 13:59 Albuterol/ Ipratropium (Duoneb) 3 ml Q2H PRN INH 12/20/17 06:30 01/19/18 06:29 Piperacillin Sod/ Tazobactam Sod 3.375 gm/Dextrose 115 ml @ 28.75 mls/ hr Q8H IV 12/24/17 21:00 01/03/18 20:59 12/30/17 12:46 28.75 MLS/HR Prednisone (PredniSONE TAB) 30 mg DAILY PO 12/26/17 09:00 01/25/18 08:59 12/30/17 09:07 30 MG Levalbuterol (Xopenex 0.63 Mg/ 3 Ml Neb) 0.63 mg Q6H PRN INH 12/25/17 16:00 01/24/18 15:59 Diltiazem HCl (Cardizem Tab) 30 mg TID PO 12/27/17 21:00 01/26/18 20:59 12/30/17 09:07 30 MG Warfarin Sodium (Coumadin Tab) 2.5 mg DAILY@16 PO 12/29/17 16:00 01/28/18 15:59 12/30/17 16:15 2.5 MG Sodium Chloride 1,000 ml @ 50 mls/hr Q20H IV 12/29/17 20:00 01/28/18 19:59 12/29/17 20:47 50 MLS/HR Albumin Human (Albumin 25%) 12.5 gm BID IV 12/30/17 08:00 01/02/18 07:59 Future hold 12/30/17 09:06 12.5 GM Albuterol/ Ipratropium (Duoneb) 3 ml TIDR INH 12/30/17 15:00 01/24/18 19:59 12/30/17 14:24 3 ML
[2017-12-30] MEDS: SERTRALINE HCL 100 MG TAB PO SCH (21:46)
[2017-12-30] MEDS: LORAZEPAM 0.5 MG TAB PO PRN (21:48)
[2017-12-31] VITALS (18 sets, daily range): BP systolic 119–147; BP diastolic 72–88; PULSE 74–126; TEMP 36.4–36.7; O2SAT 94–99
[2017-12-31] MEDS: ACETAMINOPHEN 325 MG TAB PO PRN (01:52)
[2017-12-31] MEDS: PIPERACILL/TAZOBAC IV 3.375 GM in DEXTROSE 5% 100ML 100 ML IV SCH ×3 (05:54→20:07)
[2017-12-31] MEDS: SODIUM CHLORIDE 0.9% 1000ML 1,000 ML IV SCH (05:55)
[2017-12-31] MEDS: ALBUT/IPRATROP 3MG/0.5MG NEB 3 ML VIAL INH SCH ×3 (07:33→19:24)
[2017-12-31] MEDS: DILTIAZEM HCL 30 MG TAB PO SCH ×3 (08:12→21:42)
[2017-12-31] MEDS: ALBUMIN HUMAN 25% 12.5 GM/50 ML VIAL IV SCH ×2 (08:12→20:06)
[2017-12-31] MEDS: SACCHAROMYCES BOUL (FLORASTOR) 250 MG CAP PO SCH (08:13)
[2017-12-31 10:39] LABS: CALCIUM 8.6 mg/dl (8.5-10.1); CREATININE 2.73 mg/dl (0.60-1.40); POTASSIUM 4.3 mmol/L (3.5-5.1)
[2017-12-31] MEDS: WARFARIN SOD 2.5 MG TAB PO SCH (15:42)
--- NOTE | 2017-12-31 20:19 | Progress Note ---
Medicine Progress Note Date & Time of Visit: Dec 31, 2017 at 11:10 . Subjective CC: Follow-up visit for multiple problems. HPI: No fever. Cough, dyspnea improved. No chest pain. No nausea, vomiting. Diarrhea improved. Urine output good. No dysuria. ROS: General- as noted above in HPI Resp- as noted above in HPI Cardiac- as noted above in HPI GI- as noted above in HPI - as noted above in HPI . Objective Last 8 Hrs Date Time Temp Pulse Resp B/P (MAP) Pulse Ox O2 Delivery O2 Flow Rate FiO2 12/31/17 20:08 36.7 89 16 136/88 (104) 99 Nasal Cannula 2.0 12/31/17 16:00 99 Nasal Cannula 2.0 12/31/17 15:18 36.6 74 16 133/83 (100) 99 Nasal Cannula 2.0 12/31/17 14:14 81 14 97 Nasal Cannula 2.0 Physical Exam: General- sitting in bed; no acute distress Lungs- few rales left base; mild wheezing, no respiratory distress Cardiovascular- RRR; no gallop; no JVD Abdomen- + bowel sounds, soft, nontender Extremities- no cyanosis; marked lymphedema RLE > LLE; legs bandaged Neuro- alert, oriented Skin- warm & dry . Laboratory Results: Last 24 Hours Test 12/31/17 09:59 Sodium Level 141 mmol/L Potassium Level 4.3 mmol/L Chloride Level 103 mmol/L Carbon Dioxide Level 33 mmol/L Anion Gap 6.0 mmol/L Blood Urea Nitrogen 38 mg/dl Creatinine 2.73 mg/dl Est Creatinine Clear Calc Drug Dose 34.4 ml/min Estimated GFR () 27.6 Estimated GFR (Non- 23.8 BUN/Creatinine Ratio 13.8 Random Glucose 88 mg/dl Calcium Level 8.6 mg/dl Assessment & Plan PNEUMONIA, HEALTH CARE ACQUIRED (present on admission) Had cough at time of admission. Influenza PCR negative. Chest x-ray showed left mid and lower lung infiltrates. Blood cultures obtained - negative. Urine legionella Ag neg. Received IV vancomycin, piperacillin / tazobactam. Stopped vanco in light of KELY. Receiving piperacillin / tazobactam with improvement. Afebrile. Oxygenating well on NC. UTI (present on admission) UA on admission showed nitrites, leukocyte esterase, WBC's, bacterial. Urine culture grew Klebsiella pneumoniae sensitive to all antibiotics tested except for nitrofurantoin. Receiving piperacillin / tazobactam. CELLULITIS RLE (present on admission) Underlying marked lymphedema with ulcers. Wound Care consulted. Received IV vancomycin, piperacillin / tazobactam. Stopped vanco in light of KELY. C-reactive protein 13 on 12/17 --> 4.46 on 12/24.. Continue piperacillin / tazobactam- today is day # 14 of tentative 14 day course. CHRONIC LYMPHEDEMA Wound Care consulted. ATRIAL FIBRILLATION Recent atrial fibrillation treated with sotalol and diltiazem. Stopped diltiazem in light of low blood pressures. Discontinued sotalol due to KELY. Held warfarin in case access needed for hemodialysis; resumed 12/25. Diltiazem resumed at reduced dose. COPD Exacerbation secondary to pneumonia. Finishing recent course of prednisone, but not on long-term Rx. Received IV methylprednisolone x 1. Started prednisone 40 mg daily; taper as tolerated (currently receiving 30 mg). Continue O2, nebs. CHRONIC HYPOXIC AND HYPERCAPNIC RESPIRATORY FAILURE Continue O2 and BiPAP. ACUTE KIDNEY INJURY Serum creatinine 0.87 --> --> 4.16. Renal US neg for obstruction. FE Na 0.15% UA showed hyaline casts. Possible ATN due to infection(s) and / or vancomycin and / or volume depletion. Stopped IV vancomycin. Nephrology consulted - input appreciated. No need for emergent dialysis. Furosemide held. IV fluids. Oliguric for several days; urine output now improved. Serum creatinine today = 2.73. Follow. LOOSE STOOLS Stools negative for C diff. VTE PROPHYLAXIS On warfarin at time of admission, held for possible procedures. Received SQ heparin. Resumed warfarin 12/25. SQ heparin stopped when INR therapeutic. Ambulate as able. DISPOSITION Anticipated need for skilled care once medically stable. Internal Medicine follow-up with Dr. Jiménez. . Current Inpatient Medications: Current Inpatient Medications Medications (Trade) Dose Ordered Sig/Denisse Route Start Time Stop Time Status Last Admin Dose Admin Acetaminophen (Tylenol Tab) 650 mg Q4H PRN PO 12/17/17 11:30 01/16/18 11:29 12/31/17 01:52 650 MG Ondansetron HCl (Zofran Inj) 4 mg Q6H PRN IV 12/17/17 11:30 01/16/18 11:29 Polyethylene (Miralax Powder Packet) 17 gm DAILY PRN PO 12/17/17 11:30 01/16/18 11:29 Miscellaneous Information (Consult) 1 ea UD PRN N/A 12/17/17 11:30 01/16/18 11:29 Lorazepam (Ativan Tab) 0.5 mg TID PRN PO 12/17/17 11:30 01/16/18 11:29 12/30/17 21:48 0.5 MG Nitroglycerin (Nitrostat Tab) 0.4 mg PRN UT 12/17/17 11:30 01/16/18 11:29 Sertraline HCl (Zoloft Tab) 100 mg HS PO 12/17/17 21:00 01/16/18 20:59 12/30/17 21:46 100 MG Miscellaneous Information (Order Awaiting Action) 1 ea QS N/A 12/17/17 16:00 01/16/18 15:59 Saccharomyces Boulardii (Florastor Cap) 250 mg DAILY PO 12/18/17 09:00 01/17/18 08:59 12/31/17 08:13 250 MG Tramadol HCl (Ultram Tab) 50 mg Q4H PRN PO 12/17/17 14:00 01/16/18 13:59 Albuterol/ Ipratropium (Duoneb) 3 ml Q2H PRN INH 12/20/17 06:30 01/19/18 06:29 Piperacillin Sod/ Tazobactam Sod 3.375 gm/Dextrose 115 ml @ 28.75 mls/ hr Q8H IV 12/24/17 21:00 01/03/18 20:59 12/31/17 20:07 28.75 MLS/HR Prednisone (PredniSONE TAB) 30 mg DAILY PO 12/26/17 09:00 01/25/18 08:59 12/31/17 08:13 30 MG Levalbuterol (Xopenex 0.63 Mg/ 3 Ml Neb) 0.63 mg Q6H PRN INH 12/25/17 16:00 01/24/18 15:59 Diltiazem HCl (Cardizem Tab) 30 mg TID PO 12/27/17 21:00 3/9/18 20:59 12/31/17 13:47 30 MG Warfarin Sodium (Coumadin Tab) 2.5 mg DAILY@16 PO 12/29/17 16:00 01/28/18 15:59 12/31/17 15:42 2.5 MG Sodium Chloride 1,000 ml @ 50 mls/hr Q20H IV 12/29/17 20:00 01/28/18 19:59 12/31/17 05:55 50 MLS/HR Albumin Human (Albumin 25%) 12.5 gm BID IV 12/30/17 08:00 01/02/18 07:59 Future hold 12/31/17 20:06 12.5 GM Albuterol/ Ipratropium (Duoneb) 3 ml TIDR INH 12/30/17 15:00 01/24/18 19:59 12/31/17 14:13 3 ML
[2017-12-31] MEDS: SERTRALINE HCL 100 MG TAB PO SCH (21:42)
[2017-12-31] MEDS: LORAZEPAM 0.5 MG TAB PO PRN (21:42)
[2018-01-01] VITALS (15 sets, daily range): BP systolic 118–149; BP diastolic 73–89; PULSE 62–92; TEMP 36.3–37; O2SAT 93–100
[2018-01-01 06:31] LABS: HEMATOCRIT 34.7 % (42-52); HEMOGLOBIN 10.6 g/dL (14.0-18.0); MEAN CELL VOLUME 91.3 fL (80-100); MEAN CORPUSCULAR HEMOGLOBIN 27.9 pg (25-34); MEAN CORPUSCULAR HGB CONC 30.5 g/dl (32-36); MEAN PLATELET VOLUME 8.3 fL (7.4-10.4); PLATELET COUNT 226 K/uL (130-400); RED CELL DISTRIBUTION WIDTH CV 13.7 % (11.5-14.5); RED CELL DISTRIBUTION WIDTH SD 45.8 fL (36.4-46.3); WHITE BLOOD COUNT 12.78 K/uL (4.8-10.8)
[2018-01-01 06:37] LABS: INR 2.2 (0.9-1.1)
[2018-01-01 06:57] LABS: CALCIUM 8.8 mg/dl (8.5-10.1); CREATININE 2.83 mg/dl (0.60-1.40); POTASSIUM 4.8 mmol/L (3.5-5.1)
[2018-01-01] MEDS: ALBUT/IPRATROP 3MG/0.5MG NEB 3 ML VIAL INH SCH ×3 (07:38→19:20)
[2018-01-01] MEDS: ALBUMIN HUMAN 25% 12.5 GM/50 ML VIAL IV SCH ×2 (08:29→21:21)
[2018-01-01] MEDS: DILTIAZEM HCL 30 MG TAB PO SCH ×3 (08:30→21:15)
[2018-01-01] MEDS: SACCHAROMYCES BOUL (FLORASTOR) 250 MG CAP PO SCH (08:30)
[2018-01-01] MEDS: WARFARIN SOD 2.5 MG TAB PO SCH (16:23)
[2018-01-01] MEDS ORDERED: DIPHENOXYLATE/ATROPINE 2.5/0.025MG TAB PO ONE (16:30)
--- NOTE | 2018-01-01 19:32 | Progress Note ---
Medicine Progress Note Date & Time of Visit: Jan 01, 2018 at 13:50 . Subjective CC: Follow-up visit for multiple problems. HPI: No fever. Occasional cough. No SOB. No chest pain. No nausea, vomiting. Diarrhea worse today. Urine output good. No dysuria. Nursing noted rash on back- nonpruritic. ROS: General- as noted above in HPI Resp- as noted above in HPI Cardiac- as noted above in HPI GI- as noted above in HPI - as noted above in HPI . Objective Last 8 Hrs Date Time Temp Pulse Resp B/P (MAP) Pulse Ox O2 Delivery O2 Flow Rate FiO2 01/01/18 19:21 88 14 97 Nasal Cannula 3.0 01/01/18 16:00 98 Nasal Cannula 2.0 01/01/18 15:49 36.3 87 20 130/82 (98) 100 Nasal Cannula 3.0 01/01/18 13:47 81 14 98 Nasal Cannula 2.0 01/01/18 12:00 96 Nasal Cannula 2.0 Humidified Oxygen Physical Exam: General- sitting in bed; no acute distress Lungs- few rales left base; minimal wheezing, no respiratory distress Cardiovascular- RRR; no gallop; no JVD Abdomen- + bowel sounds, soft, nontender Extremities- no cyanosis; marked lymphedema RLE > LLE; legs bandaged Neuro- alert, oriented Skin- warm & dry; macular papular rash back . Laboratory Results: Last 24 Hours Test 01/01/18 05:46 White Blood Count 12.78 K/uL Red Blood Count 3.80 M/uL Hemoglobin 10.6 g/dL Hematocrit 34.7 % Mean Corpuscular Volume 91.3 fL Mean Corpuscular Hemoglobin 27.9 pg Mean Corpuscular Hemoglobin Concent 30.5 g/dl RDW Standard Deviation 45.8 fL RDW Coefficient of Variation 13.7 % Platelet Count 226 K/uL Mean Platelet Volume 8.3 fL Prothrombin Time 22.4 SECONDS Prothromb Time International Ratio 2.2 Sodium Level 140 mmol/L Potassium Level 4.8 mmol/L Chloride Level 104 mmol/L Carbon Dioxide Level 30 mmol/L Anion Gap 6.0 mmol/L Blood Urea Nitrogen 41 mg/dl Creatinine 2.83 mg/dl Est Creatinine Clear Calc Drug Dose 33.2 ml/min Estimated GFR () 26.5 Estimated GFR (Non- 22.8 BUN/Creatinine Ratio 14.5 Random Glucose 77 mg/dl Calcium Level 8.8 mg/dl C-Reactive Protein 2.57 mg/dl Date/Time Source Procedure Growth Status 01/01/18 14:21 Stool C.difficile Toxin B Gene (PCR) - Final No C. difficile toxin B gene detected Complete Assessment & Plan PNEUMONIA, HEALTH CARE ACQUIRED (present on admission) Had cough at time of admission. Influenza PCR negative. Chest x-ray showed left mid and lower lung infiltrates. Blood cultures obtained - negative. Urine legionella Ag neg. Received IV vancomycin, piperacillin / tazobactam. Stopped vanco in light of KELY. Received piperacillin / tazobactam with improvement. Afebrile. Oxygenating well on NC. UTI (present on admission) UA on admission showed nitrites, leukocyte esterase, WBC's, bacterial. Urine culture grew Klebsiella pneumoniae sensitive to all antibiotics tested except for nitrofurantoin. Received piperacillin / tazobactam. CELLULITIS RLE (present on admission) Underlying marked lymphedema with ulcers. Wound Care consulted. Received IV vancomycin, piperacillin / tazobactam. Stopped vanco in light of KELY. C-reactive protein 13 on 12/17 --> 4.46 on 12/24 --> 2.57 today. Received piperacillin / tazobactam for 14 day course with improvement. CHRONIC LYMPHEDEMA Wound Care consulted. ATRIAL FIBRILLATION Recent atrial fibrillation treated with sotalol and diltiazem. Stopped diltiazem in light of low blood pressures. Discontinued sotalol due to KELY. Held warfarin in case access needed for hemodialysis; resumed 12/25. Diltiazem resumed at reduced dose. COPD Exacerbation secondary to pneumonia. Finishing recent course of prednisone, but not on long-term Rx. Received IV methylprednisolone x 1. Taper prednisone to 20 mg daily and continue taper as tolerated. Continue O2, nebs. CHRONIC HYPOXIC AND HYPERCAPNIC RESPIRATORY FAILURE Continue O2 and BiPAP. ACUTE KIDNEY INJURY Serum creatinine 0.87 --> --> 4.16. Renal US neg for obstruction. FE Na 0.15% UA showed hyaline casts. Possible ATN due to infection(s) and / or vancomycin and / or volume depletion. Stopped IV vancomycin. Nephrology consulted - input appreciated. No need for emergent dialysis. Furosemide held. IV fluids. Oliguric for several days; urine output now improved. Serum creatinine today = 2.83 (slightly worse than 12/31). Follow. LOOSE STOOLS Stools negative for C diff on 12/24. Worsening diarrhea today- recheck stools for C diff. RASH Maculopapular rash on back. Possible allergic reaction to piperacillin / tazobactam. VTE PROPHYLAXIS On warfarin at time of admission, held for possible procedures. Received SQ heparin. Resumed warfarin 12/25. SQ heparin stopped when INR therapeutic. Ambulate as able. DISPOSITION Anticipated need for skilled care once medically stable. Internal Medicine follow-up with Dr. Jiménez. . Current Inpatient Medications: Current Inpatient Medications Medications (Trade) Dose Ordered Sig/Denisse Route Start Time Stop Time Status Last Admin Dose Admin Acetaminophen (Tylenol Tab) 650 mg Q4H PRN PO 12/17/17 11:30 01/16/18 11:29 12/31/17 01:52 650 MG Ondansetron HCl (Zofran Inj) 4 mg Q6H PRN IV 12/17/17 11:30 01/16/18 11:29 Polyethylene (Miralax Powder Packet) 17 gm DAILY PRN PO 12/17/17 11:30 01/16/18 11:29 Lorazepam (Ativan Tab) 0.5 mg TID PRN PO 12/17/17 11:30 01/16/18 11:29 12/31/17 21:42 0.5 MG Nitroglycerin (Nitrostat Tab) 0.4 mg PRN UT 12/17/17 11:30 01/16/18 11:29 Sertraline HCl (Zoloft Tab) 100 mg HS PO 12/17/17 21:00 01/16/18 20:59 12/31/17 21:42 100 MG Miscellaneous Information (Order Awaiting Action) 1 ea QS N/A 12/17/17 16:00 01/16/18 15:59 Saccharomyces Boulardii (Florastor Cap) 250 mg DAILY PO 12/18/17 09:00 01/17/18 08:59 01/01/18 08:30 250 MG Tramadol HCl (Ultram Tab) 50 mg Q4H PRN PO 12/17/17 14:00 01/16/18 13:59 Albuterol/ Ipratropium (Duoneb) 3 ml Q2H PRN INH 12/20/17 06:30 01/19/18 06:29 Levalbuterol (Xopenex 0.63 Mg/ 3 Ml Neb) 0.63 mg Q6H PRN INH 12/25/17 16:00 01/24/18 15:59 Diltiazem HCl (Cardizem Tab) 30 mg TID PO 12/27/17 21:00 01/26/18 20:59 01/01/18 14:42 30 MG Warfarin Sodium (Coumadin Tab) 2.5 mg DAILY@16 PO 12/29/17 16:00 01/28/18 15:59 01/01/18 16:23 2.5 MG Sodium Chloride 1,000 ml @ 50 mls/hr Q20H IV 12/29/17 20:00 01/28/18 19:59 12/31/17 05:55 50 MLS/HR Albumin Human (Albumin 25%) 12.5 gm BID IV 12/30/17 08:00 01/02/18 07:59 Future hold 01/01/18 08:29 12.5 GM Albuterol/ Ipratropium (Duoneb) 3 ml TIDR INH 12/30/17 15:00 01/24/18 19:59 01/01/18 19:20 3 ML Prednisone (PredniSONE TAB) 30 mg DAILY PO 01/01/18 09:00 01/31/18 08:59 01/01/18 08:30 30 MG
[2018-01-01] MEDS: SERTRALINE HCL 100 MG TAB PO SCH (21:15)
[2018-01-01] MEDS: LORAZEPAM 0.5 MG TAB PO PRN (21:15)
[2018-01-01] MEDS: SODIUM CHLORIDE 0.9% 1000ML 1,000 ML IV SCH (21:44)
[2018-01-02] VITALS (14 sets, daily range): BP systolic 117–142; BP diastolic 73–81; PULSE 79–97; TEMP 36.4–36.9; O2SAT 90–99
[2018-01-02 06:29] LABS: CALCIUM 8.6 mg/dl (8.5-10.1); CREATININE 2.52 mg/dl (0.60-1.40); POTASSIUM 4.6 mmol/L (3.5-5.1)
--- NOTE | 2018-01-02 07:28 | Nephrology Progress Note ---
Nephrology Progress Note Date of Service: Jan 02, 2018. Subjective 62 yo male with keaton with significant chronic lymphedema. on chronix oxygen with underlying emphysema with hx of aflutter/afib with hospital acquired pneumonia and klebsiella uti with atn. creatinine peaked and has been improving on albumin and iv fluids. pt comfortable. urinating well. developed a non- pruritic rash on back thought to be possible reaction to antibiotics. Objective Date Time Temp Pulse Resp B/P (MAP) Pulse Ox O2 Delivery O2 Flow Rate FiO2 01/02/18 04:00 36.5 79 22 132/81 (98) 90 Nasal Cannula 2.0 01/02/18 04:00 92 Nasal Cannula 2.0 21 01/02/18 00:00 96 Nasal Cannula 2.0 21 01/01/18 23:51 36.5 80 16 145/78 (100) 93 Nasal Cannula 3.0 01/01/18 20:04 36.4 82 19 126/78 (94) 97 Nasal Cannula 3.0 01/01/18 20:00 98 Nasal Cannula 2.0 01/01/18 19:21 88 14 97 Nasal Cannula 3.0 01/01/18 16:00 98 Nasal Cannula 2.0 01/01/18 15:49 36.3 87 20 130/82 (98) 100 Nasal Cannula 3.0 01/01/18 13:47 81 14 98 Nasal Cannula 2.0 01/01/18 12:00 96 Nasal Cannula 2.0 Humidified Oxygen 01/01/18 11:20 36.7 84 16 118/76 (90) 98 Nasal Cannula 2.0 Humidified Air 01/01/18 08:30 97 Nasal Cannula 2.0 Humidified Oxygen 01/01/18 07:38 92 14 97 Nasal Cannula 2.0 01/01/18 07:25 36.5 88 18 122/73 (89) 100 Nasal Cannula 2.0 Humidified Oxygen Physical Exam: General-aaox3 Eyes-no scleral icterus ENT-mmm Neck-supple Lungs-decreased at bases Heart-distant heart sounds Abdomen-bs+ s/nt/nd Extremities-right leg lymphedema Neuro-nonfocal Derm-rash on back Current Inpatient Medications Medications (Trade) Dose Ordered Sig/Denisse Route Start Time Stop Time Status Last Admin Dose Admin Acetaminophen (Tylenol Tab) 650 mg Q4H PRN PO 12/17/17 11:30 01/16/18 11:29 12/31/17 01:52 650 MG Ondansetron HCl (Zofran Inj) 4 mg Q6H PRN IV 12/17/17 11:30 01/16/18 11:29 Polyethylene (Miralax Powder Packet) 17 gm DAILY PRN PO 12/17/17 11:30 01/16/18 11:29 Lorazepam (Ativan Tab) 0.5 mg TID PRN PO 12/17/17 11:30 01/16/18 11:29 01/01/18 21:15 0.5 MG Nitroglycerin (Nitrostat Tab) 0.4 mg PRN UT 12/17/17 11:30 01/16/18 11:29 Sertraline HCl (Zoloft Tab) 100 mg HS PO 12/17/17 21:00 01/16/18 20:59 01/01/18 21:15 100 MG Miscellaneous Information (Order Awaiting Action) 1 ea QS N/A 12/17/17 16:00 01/16/18 15:59 Saccharomyces Boulardii (Florastor Cap) 250 mg DAILY PO 12/18/17 09:00 01/17/18 08:59 01/01/18 08:30 250 MG Tramadol HCl (Ultram Tab) 50 mg Q4H PRN PO 12/17/17 14:00 01/16/18 13:59 Albuterol/ Ipratropium (Duoneb) 3 ml Q2H PRN INH 12/20/17 06:30 01/19/18 06:29 Levalbuterol (Xopenex 0.63 Mg/ 3 Ml Neb) 0.63 mg Q6H PRN INH 12/25/17 16:00 01/24/18 15:59 Diltiazem HCl (Cardizem Tab) 30 mg TID PO 12/27/17 21:00 01/26/18 20:59 01/01/18 21:15 30 MG Warfarin Sodium (Coumadin Tab) 2.5 mg DAILY@16 PO 12/29/17 16:00 01/28/18 15:59 01/01/18 16:23 2.5 MG Sodium Chloride 1,000 ml @ 50 mls/hr Q20H IV 12/29/17 20:00 01/28/18 19:59 01/01/18 21:44 50 MLS/HR Albumin Human (Albumin 25%) 12.5 gm BID IV 12/30/17 08:00 01/02/18 07:59 Future hold 01/01/18 21:21 12.5 GM Albuterol/ Ipratropium (Duoneb) 3 ml TIDR INH 12/30/17 15:00 01/24/18 19:59 01/01/18 19:20 3 ML Prednisone (PredniSONE TAB) 20 mg DAILY PO 01/02/18 09:00 02/01/18 08:59 Diphenoxylate HCl/ Atropine (Lomotil Tab) 1 tab DAILY PRN PO 01/02/18 01:15 02/01/18 01:14 Last 24 Hours Test 01/02/18 05:38 Prothrombin Time 20.9 SECONDS Prothromb Time International Ratio 2.0 Sodium Level 138 mmol/L Potassium Level 4.6 mmol/L Chloride Level 105 mmol/L Carbon Dioxide Level 28 mmol/L Anion Gap 5.0 mmol/L Blood Urea Nitrogen 42 mg/dl Creatinine 2.52 mg/dl Est Creatinine Clear Calc Drug Dose 37.3 ml/min Estimated GFR () 30.4 Estimated GFR (Non- 26.3 BUN/Creatinine Ratio 16.6 Random Glucose 77 mg/dl Calcium Level 8.6 mg/dl Date/Time Source Procedure Growth Status 01/01/18 14:21 Stool C.difficile Toxin B Gene (PCR) - Final No C. difficile toxin B gene detected Complete Assessment & Plan keaton/raz-ojg-fuesjufk-creatinine peaked and has started to improve. not yet back to baseline. two options, continue albumin/normal saline till creatinine under 2 and then stop and send home once medically stable off lasix and repeat bmp in a week and restart lasix once creatinine back to baseline as outpt. another option is to continue the albumin/normal saline till creatinine back to baseline and then restart lasix as inpt and monitor creatinine. will discuss further with hospitalist and patient tomorrow.
[2018-01-02] MEDS: ALBUT/IPRATROP 3MG/0.5MG NEB 3 ML VIAL INH SCH ×3 (07:29→19:26)
[2018-01-02] MEDS: DILTIAZEM HCL 30 MG TAB PO SCH ×3 (08:25→20:54)
[2018-01-02] MEDS: SACCHAROMYCES BOUL (FLORASTOR) 250 MG CAP PO SCH (08:26)
[2018-01-02] MEDS: WARFARIN SOD 2.5 MG TAB PO SCH (16:19)
[2018-01-02] MEDS: SODIUM CHLORIDE 0.9% 1000ML 1,000 ML IV SCH ×2 (18:02→23:28)
--- NOTE | 2018-01-02 20:08 | Progress Note ---
Medicine Progress Note Date & Time of Visit: Jan 02, 2018 at 19:49. Subjective Pt was seen an examined Sitting in bed with no distress Denies any complaints Objective Last 8 Hrs Date Time Temp Pulse Resp B/P (MAP) Pulse Ox O2 Delivery O2 Flow Rate FiO2 01/02/18 16:00 95 Nasal Cannula 2.0 01/02/18 15:25 36.4 97 18 121/73 (89) 96 Nasal Cannula 2.0 01/02/18 14:22 88 14 95 Nasal Cannula 3.0 01/02/18 12:30 97 Nasal Cannula 2.0 Humidified Oxygen 01/02/18 11:53 36.9 88 18 117/76 (90) 96 Nasal Cannula 3.0 Physical Exam: General- No acute distress Head- atraumatic Eyes- PERRL, EOMI ENT- oropharynx clear Neck- supple, no JVD Lungs-mild wheezing Heart- regular rhythm Abdomen- normal bowel sounds, soft Extremities- no calf tenderness, LE lymphedema Neuro- alert, oriented x 3; PERRL, EOMI; no facial palsy Skin- warm & dry Laboratory Results: Last 24 Hours Test 01/02/18 05:38 Prothrombin Time 20.9 SECONDS Prothromb Time International Ratio 2.0 Sodium Level 138 mmol/L Potassium Level 4.6 mmol/L Chloride Level 105 mmol/L Carbon Dioxide Level 28 mmol/L Anion Gap 5.0 mmol/L Blood Urea Nitrogen 42 mg/dl Creatinine 2.52 mg/dl Est Creatinine Clear Calc Drug Dose 37.3 ml/min Estimated GFR () 30.4 Estimated GFR (Non- 26.3 BUN/Creatinine Ratio 16.6 Random Glucose 77 mg/dl Calcium Level 8.6 mg/dl Assessment & Plan PNEUMONIA, HEALTH CARE ACQUIRED .Chest x-ray showed left mid and lower lung infiltrates. Influenza PCR negative Blood cultures negative. Urine legionella Ag neg. Completed 7 day course of Zosyn Clinically improved UTI Urine culture grew Klebsiella pneumoniae Completed piperacillin / tazobactam. ACUTE KIDNEY INJURY Serum creatinine 0.87 --> --> 4.16. Possible related to Vanco vs volume depletion Renal US showed kidneys are normal in size and without hydronephrosis. IV vancomycin was discontinued Nephrology consulted, no need for emergent dialysis. Continue holding lasix Creatine continue to improve slowly, 2.53 today Continue monitor BMP and avoid nephrotoxic agents CELLULITIS RLE Has Chronic lymphedema with ulcers. Received IV vancomycin, piperacillin / tazobactam. Vanco was discontinued due to KELY with creatine 4.15 Received piperacillin / tazobactam for 14 day course with improvement. Continue daily wound care Wound nurse on board ATRIAL FIBRILLATION rate control Sotalol was discontinued due to KLEY. Continue Cardizem 30mg TID. Continue coumadin, INR 2.0 today COPD Exacerbation secondary to pneumonia. on taper prednisone 20mg course continue Neb treatment stable CHRONIC HYPOXIC AND HYPERCAPNIC RESPIRATORY FAILURE Continue O2 and BiPAP. Stable LOOSE STOOLS Stools negative for C diff x2 Monitor electrolytes Improved RASH Maculopapular rash on back. Possible allergic reaction to piperacillin / tazobactam. Stable VTE PROPHYLAXIS On coumadin with INR 2 today. DISPOSITION Anticipated need for skilled care once medically stable. Internal Medicine follow-up with Dr. Jiménez. Current Inpatient Medications: Current Inpatient Medications Medications (Trade) Dose Ordered Sig/Denisse Route Start Time Stop Time Status Last Admin Dose Admin Acetaminophen (Tylenol Tab) 650 mg Q4H PRN PO 12/17/17 11:30 01/16/18 11:29 12/31/17 01:52 650 MG Ondansetron HCl (Zofran Inj) 4 mg Q6H PRN IV 12/17/17 11:30 01/16/18 11:29 Polyethylene (Miralax Powder Packet) 17 gm DAILY PRN PO 12/17/17 11:30 01/16/18 11:29 Lorazepam (Ativan Tab) 0.5 mg TID PRN PO 12/17/17 11:30 01/16/18 11:29 01/01/18 21:15 0.5 MG Nitroglycerin (Nitrostat Tab) 0.4 mg PRN UT 12/17/17 11:30 01/16/18 11:29 Sertraline HCl (Zoloft Tab) 100 mg HS PO 12/17/17 21:00 01/16/18 20:59 01/01/18 21:15 100 MG Miscellaneous Information (Order Awaiting Action) 1 ea QS N/A 12/17/17 16:00 01/16/18 15:59 Saccharomyces Boulardii (Florastor Cap) 250 mg DAILY PO 12/18/17 09:00 01/17/18 08:59 01/02/18 08:26 250 MG Tramadol HCl (Ultram Tab) 50 mg Q4H PRN PO 12/17/17 14:00 01/16/18 13:59 Albuterol/ Ipratropium (Duoneb) 3 ml Q2H PRN INH 12/20/17 06:30 01/19/18 06:29 Levalbuterol (Xopenex 0.63 Mg/ 3 Ml Neb) 0.63 mg Q6H PRN INH 12/25/17 16:00 01/24/18 15:59 Diltiazem HCl (Cardizem Tab) 30 mg TID PO 12/27/17 21:00 01/26/18 20:59 01/02/18 14:30 30 MG Warfarin Sodium (Coumadin Tab) 2.5 mg DAILY@16 PO 12/29/17 16:00 01/28/18 15:59 01/02/18 16:19 2.5 MG Sodium Chloride 1,000 ml @ 50 mls/hr Q20H IV 12/29/17 20:00 01/28/18 19:59 01/02/18 18:02 50 MLS/HR Albuterol/ Ipratropium (Duoneb) 3 ml TIDR INH 12/30/17 15:00 01/24/18 19:59 01/02/18 19:26 3 ML Prednisone (PredniSONE TAB) 20 mg DAILY PO 01/02/18 09:00 02/01/18 08:59 01/02/18 08:24 20 MG Diphenoxylate HCl/ Atropine (Lomotil Tab) 1 tab DAILY PRN PO 01/02/18 01:15 02/01/18 01:14
[2018-01-02] MEDS: SERTRALINE HCL 100 MG TAB PO SCH (20:54)
[2018-01-02] MEDS: DIPHENOXYLATE/ATROPINE 2.5/0.025MG TAB PO PRN (20:54)
[2018-01-02] MEDS: LORAZEPAM 0.5 MG TAB PO PRN (21:00)
[2018-01-03] VITALS (13 sets, daily range): BP systolic 115–151; BP diastolic 70–93; PULSE 67–99; TEMP 36.2–37.1; O2SAT 93–100
[2018-01-03 06:32] LABS: INR 1.9 (0.9-1.1)
[2018-01-03 06:48] LABS: CALCIUM 8.8 mg/dl (8.5-10.1); CREATININE 2.51 mg/dl (0.60-1.40); POTASSIUM 4.5 mmol/L (3.5-5.1)
[2018-01-03] MEDS: ALBUT/IPRATROP 3MG/0.5MG NEB 3 ML VIAL INH SCH ×3 (07:07→19:24)
[2018-01-03] MEDS: SACCHAROMYCES BOUL (FLORASTOR) 250 MG CAP PO SCH (08:08)
[2018-01-03] MEDS: DILTIAZEM HCL 30 MG TAB PO SCH ×3 (08:08→21:36)
--- NOTE | 2018-01-03 10:28 | Clinical Documentation Query ---
CLINICAL DOCUMENTATION QUERY HCAP with suspected Gram negative pneumonia has been documented by previous providers. Unfortunately this has fallen off the record and its' clinical relevance may be lost. In your clinical opinion is this patient being managed for: ( ) HCAP due to suspected MRSA and/or Gram negative pneumonias treated with IV Zosyn and Vancomycin. ( ) Not Agree Please clarify and document your clinical opinion in the progress notes and discharge summary. Terms such as "probable", "suspected", "likely", "questionable", "possible", or "still to be ruled out" are acceptable. IF IN AGREEMENT, YOU MUST DOCUMENT ABOVE DIAGNOSTIC STATEMENT IN DAILY PROGRESS NOTES AND DISCHARGE SUMMARY. This document is not part of the patient's record. Thank You, Manuel Salinas, ALEKSEY [phone]
[2018-01-03] MEDS: SODIUM CHLORIDE 0.9% 1000ML 1,000 ML IV SCH (14:35)
[2018-01-03] MEDS ORDERED: WARFARIN SOD 2.5 MG TAB PO SCH (16:00)
[2018-01-03] MEDS: DIPHENOXYLATE/ATROPINE 2.5/0.025MG TAB PO PRN (16:31)
--- NOTE | 2018-01-03 17:59 | Progress Note ---
Medicine Progress Note Date & Time of Visit: Jan 03, 2018 at 17:45. Subjective Pt was seen and examined Lying in bed with no distress Denies any complaint Objective Last 8 Hrs Date Time Temp Pulse Resp B/P (MAP) Pulse Ox O2 Delivery O2 Flow Rate FiO2 01/03/18 16:00 96 Nasal Cannula 2.0 01/03/18 15:35 36.2 93 22 120/73 (89) 96 Nasal Cannula 2.0 01/03/18 15:07 88 16 97 Nasal Cannula 2.0 01/03/18 12:30 Nasal Cannula 2.0 Humidified Oxygen 01/03/18 11:53 36.9 94 18 115/80 (92) 94 2.0 Physical Exam: General- No acute distress Head- atraumatic Eyes- PERRL, EOMI ENT- oropharynx clear Neck- supple, no JVD Lungs-No wheezing Heart- regular rhythm Abdomen- normal bowel sounds, soft Extremities- no calf tenderness, LE lymphedema Neuro- alert, oriented x 3; PERRL, EOMI; no facial palsy Skin- warm & dry Laboratory Results: Last 24 Hours Test 01/03/18 05:43 Prothrombin Time 19.3 SECONDS Prothromb Time International Ratio 1.9 Sodium Level 139 mmol/L Potassium Level 4.5 mmol/L Chloride Level 105 mmol/L Carbon Dioxide Level 28 mmol/L Anion Gap 6.0 mmol/L Blood Urea Nitrogen 43 mg/dl Creatinine 2.51 mg/dl Est Creatinine Clear Calc Drug Dose 37.4 ml/min Estimated GFR () 30.6 Estimated GFR (Non- 26.4 BUN/Creatinine Ratio 17.0 Random Glucose 92 mg/dl Calcium Level 8.8 mg/dl Assessment & Plan PNEUMONIA, HEALTH CARE ACQUIRED Chest x-ray showed left mid and lower lung infiltrates. Influenza PCR negative Blood cultures negative. Urine legionella Ag neg. Completed 7 day course of Zosyn Clinically improved UTI Urine culture grew Klebsiella pneumoniae Completed piperacillin / tazobactam. ACUTE KIDNEY INJURY Serum creatinine 0.87 --> --> 4.16. Possible related to Vanco vs volume depletion Renal US showed kidneys are normal in size and without hydronephrosis. IV vancomycin was discontinued Nephrology consulted, no need for emergent dialysis. Continue holding lasix Creatine continue to improve slowly, 2.53--->2.51 today Continue monitor BMP and avoid nephrotoxic agents Case discussed with Nephrology Oncu Recommended to check BMP weekly x 4 and continue to hold Lasix until creatine back to baseline OK from nephrology standpoint to discharge CELLULITIS RLE Has Chronic lymphedema with ulcers. Received IV vancomycin, piperacillin / tazobactam. Vanco was discontinued due to KELY with creatine 4.15 Received piperacillin / tazobactam for 14 day course with improvement. Continue daily wound care Wound nurse on board ATRIAL FIBRILLATION Rate control Sotalol was discontinued due to KELY. Continue Cardizem 30mg TID. INR 1.9 today Increased Coumadin to 3.5 COPD Exacerbation secondary to pneumonia. on taper prednisone 20mg course continue Neb treatment stable CHRONIC HYPOXIC AND HYPERCAPNIC RESPIRATORY FAILURE Continue O2 supplement BiPAP at night Stable LOOSE STOOLS Stools negative for C diff x2 Monitor electrolytes Improved RASH Maculopapular rash on back. Possible allergic reaction to piperacillin / tazobactam. Stable VTE PROPHYLAXIS On Coumadin with INR 1.9 today. DISPOSITION Will discharge to [facility] tomorrow Internal Medicine follow-up with Dr. Jiménez. Current Inpatient Medications: Current Inpatient Medications Medications (Trade) Dose Ordered Sig/Denisse Route Start Time Stop Time Status Last Admin Dose Admin Acetaminophen (Tylenol Tab) 650 mg Q4H PRN PO 12/17/17 11:30 01/16/18 11:29 12/31/17 01:52 650 MG Ondansetron HCl (Zofran Inj) 4 mg Q6H PRN IV 12/17/17 11:30 01/16/18 11:29 Polyethylene (Miralax Powder Packet) 17 gm DAILY PRN PO 12/17/17 11:30 01/16/18 11:29 Lorazepam (Ativan Tab) 0.5 mg TID PRN PO 12/17/17 11:30 01/16/18 11:29 01/02/18 21:00 0.5 MG Nitroglycerin (Nitrostat Tab) 0.4 mg PRN UT 12/17/17 11:30 01/16/18 11:29 Sertraline HCl (Zoloft Tab) 100 mg HS PO 12/17/17 21:00 01/16/18 20:59 01/02/18 20:54 100 MG Saccharomyces Boulardii (Florastor Cap) 250 mg DAILY PO 12/18/17 09:00 01/17/18 08:59 01/03/18 08:08 250 MG Tramadol HCl (Ultram Tab) 50 mg Q4H PRN PO 12/17/17 14:00 01/16/18 13:59 Albuterol/ Ipratropium (Duoneb) 3 ml Q2H PRN INH 12/20/17 06:30 01/19/18 06:29 Levalbuterol (Xopenex 0.63 Mg/ 3 Ml Neb) 0.63 mg Q6H PRN INH 12/25/17 16:00 01/24/18 15:59 Diltiazem HCl (Cardizem Tab) 30 mg TID PO 12/27/17 21:00 01/26/18 20:59 01/03/18 14:18 30 MG Sodium Chloride 1,000 ml @ 50 mls/hr Q20H IV 12/29/17 20:00 01/28/18 19:59 01/03/18 14:35 50 MLS/HR Albuterol/ Ipratropium (Duoneb) 3 ml TIDR INH 12/30/17 15:00 01/24/18 19:59 01/03/18 15:07 3 ML Prednisone (PredniSONE TAB) 20 mg DAILY PO 01/02/18 09:00 02/01/18 08:59 01/03/18 08:08 20 MG Diphenoxylate HCl/ Atropine (Lomotil Tab) 1 tab DAILY PRN PO 01/02/18 01:15 02/01/18 01:14 01/03/18 16:31 1 TAB Warfarin Sodium (Coumadin Tab) 3.5 mg DAILY@16 PO 01/03/18 16:00 01/28/18 15:59 01/03/18 16:30 3.5 MG Desloratidine (Clarinex) 5 mg DAILY PO 01/04/18 09:00 02/03/18 08:59
[2018-01-03] MEDS: LORAZEPAM 0.5 MG TAB PO PRN (21:33)
[2018-01-03] MEDS: SERTRALINE HCL 100 MG TAB PO SCH (21:33)
[2018-01-04] VITALS (8 sets, daily range): BP systolic 112–129; BP diastolic 71–77; PULSE 81–120; TEMP 36.5–36.8; O2SAT 93–99
[2018-01-04 06:26] LABS: INR 1.9 (0.9-1.1)
[2018-01-04 06:50] LABS: CALCIUM 8.8 mg/dl (8.5-10.1); CREATININE 2.28 mg/dl (0.60-1.40); POTASSIUM 4.6 mmol/L (3.5-5.1)
[2018-01-04] MEDS: ALBUT/IPRATROP 3MG/0.5MG NEB 3 ML VIAL INH SCH ×2 (07:36→14:29)
[2018-01-04] MEDS: SACCHAROMYCES BOUL (FLORASTOR) 250 MG CAP PO SCH (08:12)
[2018-01-04] MEDS: DILTIAZEM HCL 30 MG TAB PO SCH ×2 (08:12→14:25)
[2018-01-04] MEDS ORDERED: DESLORATADINE 5 MG TAB PO SCH (09:00)
--- NOTE | 2018-01-04 11:57 | Progress Note ---
Medicine Progress Note Date & Time of Visit: Jan 04, 2018 at 11:50. Subjective Pt was seen and examined Sitting in bed with no distress Pt said that he feels fine Denies any chest pain, palpitation, dizziness and SOB Objective Last 8 Hrs Date Time Temp Pulse Resp B/P (MAP) Pulse Ox O2 Delivery O2 Flow Rate FiO2 01/04/18 09:29 36.5 120 16 93 Nasal Cannula 01/04/18 09:19 120 93 01/04/18 08:00 95 Nasal Cannula 3.0 01/04/18 07:36 90 16 95 Nasal Cannula 2.0 01/04/18 07:00 36.5 97 20 129/76 (93) 94 Nasal Cannula 3.0 01/04/18 05:13 36.8 81 19 129/77 (94) 99 Nasal Cannula 2.0 01/04/18 04:00 Nasal Cannula 2.0 Physical Exam: General- No acute distress Head- atraumatic Eyes- PERRL, EOMI ENT- oropharynx clear Neck- supple, no JVD Lungs-No wheezing Heart- regular rhythm Abdomen- normal bowel sounds, soft Extremities- no calf tenderness, LE lymphedema Neuro- alert, oriented x 3; PERRL, EOMI; no facial palsy Skin- warm & dry Laboratory Results: Last 24 Hours Test 01/04/18 06:06 Prothrombin Time 19.6 SECONDS Prothromb Time International Ratio 1.9 Sodium Level 139 mmol/L Potassium Level 4.6 mmol/L Chloride Level 105 mmol/L Carbon Dioxide Level 28 mmol/L Anion Gap 6.0 mmol/L Blood Urea Nitrogen 41 mg/dl Creatinine 2.28 mg/dl Est Creatinine Clear Calc Drug Dose 41.2 ml/min Estimated GFR () 34.4 Estimated GFR (Non- 29.6 BUN/Creatinine Ratio 17.8 Random Glucose 85 mg/dl Calcium Level 8.8 mg/dl Assessment & Plan PNEUMONIA, HEALTH CARE ACQUIRED Chest x-ray showed left mid and lower lung infiltrates. Influenza PCR negative Blood cultures negative. Urine legionella Ag neg. MRSA screen negative Sputum cx no growth Completed 7 day course of Zosyn Clinically improved UTI Urine culture grew Klebsiella pneumoniae Completed piperacillin / tazobactam. ACUTE KIDNEY INJURY Serum creatinine 0.87 --> --> 4.16. Possible related to Vanco vs volume depletion Renal US showed kidneys are normal in size and without hydronephrosis. IV vancomycin was discontinued Nephrology consulted, no need for emergent dialysis. Continue holding lasix Creatine continue to improve slowly, 2.53--->2.51---> 2.2 today Continue monitor BMP and avoid nephrotoxic agents Case discussed with Nephrology Dr. Aguilar Recommended to check BMP twice weekly x 4 and continue to hold Lasix until creatine back to baseline Will resume Lasix at a lower dose outpatient and titrate it Monitor BMP closely once Lasix resumes. OK from nephrology standpoint to discharge CELLULITIS RLE Chronic lymphedema with ulcers. Received IV vancomycin, piperacillin / tazobactam. Vanco was discontinued due to KELY with creatine 4.15 Completed piperacillin / tazobactam for 14 day course Continue follow up with Podiatry as an outpatient for routine foot care Continue daily wound care Wound nurse on board [employer] Rate control Sotalol was discontinued due to KELY. Continue Cardizem 30mg TID. INR 1.9 today Continue Coumadin to 3.5 COPD Exacerbation secondary to pneumonia. on taper prednisone 20mg course continue Neb treatment stable CHRONIC HYPOXIC AND HYPERCAPNIC RESPIRATORY FAILURE Continue O2 supplement BiPAP at night Stable LOOSE STOOLS Stools negative for C diff x2 Monitor electrolytes Improved RASH Maculopapular rash on back. Possible allergic reaction to piperacillin / tazobactam. Stable VTE PROPHYLAXIS On Coumadin with INR 1.9 today. DISPOSITION Will discharge to [facility] today Internal Medicine follow-up with Dr. Jiménez. Consultants: Nephrology Current Inpatient Medications: Current Inpatient Medications Medications (Trade) Dose Ordered Sig/Denisse Route Start Time Stop Time Status Last Admin Dose Admin Acetaminophen (Tylenol Tab) 650 mg Q4H PRN PO 12/17/17 11:30 01/16/18 11:29 12/31/17 01:52 650 MG Ondansetron HCl (Zofran Inj) 4 mg Q6H PRN IV 12/17/17 11:30 01/16/18 11:29 Polyethylene (Miralax Powder Packet) 17 gm DAILY PRN PO 12/17/17 11:30 01/16/18 11:29 Lorazepam (Ativan Tab) 0.5 mg TID PRN PO 12/17/17 11:30 01/16/18 11:29 01/03/18 21:33 0.5 MG Nitroglycerin (Nitrostat Tab) 0.4 mg PRN UT 12/17/17 11:30 01/16/18 11:29 Sertraline HCl (Zoloft Tab) 100 mg HS PO 12/17/17 21:00 01/16/18 20:59 01/03/18 21:33 100 MG Saccharomyces Boulardii (Florastor Cap) 250 mg DAILY PO 12/18/17 09:00 01/17/18 08:59 01/04/18 08:12 250 MG Tramadol HCl (Ultram Tab) 50 mg Q4H PRN PO 12/17/17 14:00 01/16/18 13:59 Albuterol/ Ipratropium (Duoneb) 3 ml Q2H PRN INH 12/20/17 06:30 01/19/18 06:29 Levalbuterol (Xopenex 0.63 Mg/ 3 Ml Neb) 0.63 mg Q6H PRN INH 12/25/17 16:00 01/24/18 15:59 Diltiazem HCl (Cardizem Tab) 30 mg TID PO 12/27/17 21:00 01/26/18 20:59 01/04/18 08:12 30 MG Sodium Chloride 1,000 ml @ 50 mls/hr Q20H IV 12/29/17 20:00 01/28/18 19:59 01/03/18 14:35 50 MLS/HR Albuterol/ Ipratropium (Duoneb) 3 ml TIDR INH 12/30/17 15:00 01/24/18 19:59 01/04/18 07:36 3 ML Prednisone (PredniSONE TAB) 20 mg DAILY PO 01/02/18 09:00 02/01/18 08:59 01/04/18 08:12 20 MG Diphenoxylate HCl/ Atropine (Lomotil Tab) 1 tab DAILY PRN PO 01/02/18 01:15 02/01/18 01:14 01/03/18 16:31 1 TAB Warfarin Sodium (Coumadin Tab) 3.5 mg DAILY@16 PO 01/03/18 16:00 01/28/18 15:59 01/03/18 16:30 3.5 MG Desloratidine (Clarinex) 5 mg DAILY PO 01/04/18 09:00 02/03/18 08:59 01/04/18 08:13 5 MG
[2018-01-04] MEDS ORDERED: CRD30 PO (12:05)
[2018-01-04] MEDS ORDERED: PRD10 PO (12:05)
--- NOTE | 2018-01-04 12:17 | Discharge Instructions ---
Discharge Instructions Date of Service Jan 04, 2018. Admission Reason for Admission: Healthcare-Associated Pneumonia Discharge Discharge Diagnosis / Problem: Pneumonia, Right Lower extremities Cellulitis, UTI, Acute kidney injury Discharge Goals Goal(s): Decrease discomfort, Improve function, Improve disease control Activity Recommendations Activity Limitations: resume your previous activity (as tolerated) . Instructions / Follow-Up Instructions / Follow-Up Follow up with your primary care provider Once discharge from [facility] Follow up with Nephrology Dr. Aguilar Follow up with Podiatry Dr. Flannery for routine foot care Follow up with wound care Continue daily wound care Check BMP weekly for 3-4 weeks to monitor renal function Hold Lasix for now and resume lasix at a lower dose once creatine return to baseline and titrate (keep close monitor on creatine once resume lasix) Continue follow follow up with the Coumadin clinic (INR 1.9 today) Continue oxygen supplement continue Bipap at night Continue Physical therapy Fall precaution Current Hospital Diet Patient's current hospital diet: AHA Diet (Heart Healthy) Discharge Diet Recommended Diet: AHA Diet (Heart Healthy) Pending Studies Studies pending at discharge: no Medical Emergencies . Who to Call and When: Medical Emergencies: If at any time you feel your situation is an emergency, please call 911 immediately. . Non-Emergent Contact Non-Emergency issues call your: Primary Care Provider Call Non-Emergent contact if: you have any medication questions . . "Provider Documentation" section prepared by Isaac Miles. . VTE Core Measure Inpt VTE Proph given/why not?: Warfarin (Coumadin)
--- NOTE | 2018-01-04 12:27 | Discharge Summary ---
Discharge Summary Date of Service Jan 04, 2018. Discharge Summary Admission Date: Dec 17, 2017 at 10:22 Discharge Date: Jan 04, 2018 Discharge Disposition: detention facility Principal Diagnosis: PNEUMONIA, HEALTH CARE ACQUIRED Secondary Diagnoses/Problems: Right Lower extremities Cellulitis Chronic lymphedema with ulcers. UTI Acute kidney injury COPD AFIB CHRONIC HYPOXIC AND HYPERCAPNIC RESPIRATORY FAILURE Procedures: ULTRASOUND KIDNEYS AND BLADDER CLINICAL HISTORY: Acute renal injury. COMPARISON STUDY: No priors. TECHNIQUE: Real-time, grayscale, and color flow sonography of the kidneys and bladder is performed. Images are reviewed in the transverse and longitudinal planes. FINDINGS: Kidneys: The kidneys are normal in size and echotexture. The right kidney measures 11.7 cm in length and the left kidney measures 13.0 cm in length. There is no hydronephrosis. No shadowing renal calculi are identified. A 3.2 cm cyst is present in the left upper pole. There is no sonographic evidence of contour deforming renal mass lesion. No perinephric fluid is identified. Bladder: The bladder wall is thickened and trabeculated suggesting chronic obstruction. A small diverticulum is seen posteriorly on the right. Bilateral ureteral jets were seen. IMPRESSION: 1. The kidneys are normal in size and without hydronephrosis. 2. The appearance of the bladder is consistent with chronic outlet obstruction. A small diverticulum is noted. Electronically signed by: Eduardo Garcia M.D. 12/20/2017 2:00 PM Dictated Date/Time: 12/20/2017 1:58 PM [~ rep ct add3]] CHEST ONE VIEW PORTABLE CLINICAL HISTORY: f/u pneumonia, acute kidney injury COMPARISON STUDY: Chest radiograph December 20, 2017. FINDINGS: Severe emphysema is noted. Extensive left mid and lower lung airspace opacity persists. There may be a small left pleural effusion. No cavitation is identified. There is no evidence for pulmonary edema. IMPRESSION: 1. No change in extensive left lower opacity suggestive of pneumonia. Radiographic follow-up to ensure resolution is recommended. 2. Severe emphysema. Electronically signed by: Paramjit Linder M.D. 12/23/2017 8:12 AM Dictated Date/Time: 12/23/2017 8:11 AM Consultations: Nephrology Medication Reconciliation New Medications: Diltiazem HCl (Diltiazem HCl) 30 Mg Tab 30 MG PO TID for 30 Days, #90 TAB Changed Medications: Prednisone (Prednisone) 10 Mg Tab 10 MG PO UD for 7 Days, TAB (Changed from: QAM; Removed Quantity; 30; 2 po daily for 5 days and then 1 po daily continue until changed by Pulmonary) 2 po daily for 3 days and then 1 po daily Continued Medications: Azithromycin (Azithromycin) 250 Mg Tab 250 MG PO DIRECTED *COPD RESCUE KIT* Desloratadine (Desloratadine) 5 Mg Tab 5 MG PO QAM Furosemide (Lasix) 40 Mg Tab 40 MG PO DAILY PRN for Edema, TAB Guaifenesin La (Guaifenesin Er) 600 Mg Tabcr 600 MG PO Q12H PRN for Cough, TAB Home O2 Therapy (Oxygen) Gas 2 LITERS NA CONTINOUS Ipratropium-Albuterol (Combivent Respimat) 1 Aer Aer 1 PUFF INH QID PRN for Cough/SOB or Wheezing, INH Ipratropium-Albuterol (Duoneb) 3 Ml Nebu 1 TREATMENT INH TID PRN for SOB/Wheezing, INHA Lorazepam (Lorazepam) 0.5 Mg Tab 0.5 MG PO TID PRN for Anxiety/Shortness Of Breath Nitroglycerin (Nitrostat) 0.4 Mg Tab 0.4 MG UT PRN, BTL PLACE UNDER TONGUE EVERY 5 MINUTES NEEDED Potassium Chloride (Potassium Chloride Er) 10 Meq Tab 10 MEQ PO DAILY PRN for If Lasix Taken, TAB Prednisone (Prednisone) 20 Mg Tab 40 MG PO DIRECTED PRN for COPD, TAB *COPD RESCUE KIT* Probiotic Product (Probiotic) 1 Tab Tab 1 TAB PO DAILY Sertraline (Zoloft) 100 Mg Tab 100 MG PO HS, TAB Umeclidinium-Vilanterol (Anoro Ellipta 62.5-25 Mcg/INH) 1 Aer Aer 1 PUFF INH QAM Warfarin Sod (Jantoven) 5 Mg Tab 3.5 MG PO QPM, TAB Discontinued Medications: Diltiazem Hcl Ext Rel (Tiazac) 180 Mg Capcr 180 MG PO DAILY, CAP Sotalol Hcl (Sotalol Hcl) 80 Mg Tab 80 MG PO BID for 90 Days, #180 TAB 3 Refills Admission Information HPI (per Admitting provider): 62 yo M with recent hospital admission last week for COPD presents with an increase in his RLE swelling with redness and warmth. He was incidentally found to have a L PNA in the ER on CXR. He denies pain, reports a chronic cough , denies fevers, chills, diarrhea, UTI symptoms, SOB, CP or any other symptom. He reports that he doesn't ambulate much. He recently had a supratherapeutic INR and was told to hold his coumadin for a few days. His INR has come down to 1.8 today. Home Health nurses see him and called for the ambulance this morning after seeing his leg. Physical Exam (per Admitting): General Appearance: WD/WN, no apparent distress, + pertinent finding ( oxymask in use at 3L) Head: normocephalic, atraumatic Eyes: normal inspection, sclerae normal ENT: hearing grossly normal Neck: trachea midline Respiratory/Chest: lungs clear, normal breath sounds, no respiratory distress, no accessory muscle use Cardiovascular: regular rate, rhythm, no edema, no gallop, no JVD, no murmur , normal peripheral pulses Abdomen/GI: normal bowel sounds, non tender, soft Extremities/Musculoskelatal: normal capillary refill, + pertinent finding ( bilateral lymphedema with chronic changes to skin, seepage of serosanguinous fluid through skin on posterior calves bilaterally, erythema and warmth to just distal to L knee extending length of lower leg to foot) Neurologic/Psych: tax form preparer II-XII nml as tested, no motor/sensory deficits, alert , normal mood/affect, oriented x 3 Skin: + pertinent finding (as above.) Hospital Course PNEUMONIA, HEALTH CARE ACQUIRED Chest x-ray showed left mid and lower lung infiltrates. Influenza PCR negative Blood cultures negative. Urine legionella Ag neg. Completed 7 day course of Zosyn Clinically improved UTI Urine culture grew Klebsiella pneumoniae Completed piperacillin / tazobactam. ACUTE KIDNEY INJURY Serum creatinine 0.87 --> --> 4.16. Possible related to Vanco vs volume depletion Renal US showed kidneys are normal in size and without hydronephrosis. IV vancomycin was discontinued Nephrology consulted, no need for emergent dialysis. Continue holding lasix Creatine continue to improve slowly, 2.53--->2.51---> 2.2 today Continue monitor BMP and avoid nephrotoxic agents Case discussed with Nephrology Dr. Aguilar Recommended to check BMP twice weekly x 4 and continue to hold Lasix until creatine back to baseline OK from nephrology standpoint to discharge CELLULITIS RLE Chronic lymphedema with ulcers. Received IV vancomycin, piperacillin / tazobactam. Vanco was discontinued due to KELY with creatine 4.15 Completed piperacillin / tazobactam for 14 day course Continue follow up with Podiatry as an outpatient for routine foot care Continue daily wound care Wound nurse on board A[employer] FIBRILLATION Rate control Sotalol was discontinued due to KELY. Continue Cardizem 30mg TID. INR 1.9 today Continue Coumadin to 3.5 COPD Exacerbation secondary to pneumonia. on taper prednisone 20mg course continue Neb treatment stable CHRONIC HYPOXIC AND HYPERCAPNIC RESPIRATORY FAILURE Continue O2 supplement BiPAP at night Stable LOOSE STOOLS Stools negative for C diff x2 Monitor electrolytes Improved RASH Maculopapular rash on back. Possible allergic reaction to piperacillin / tazobactam. Stable VTE PROPHYLAXIS On Coumadin with INR 1.9 today. DISPOSITION Will discharge to [facility] today Internal Medicine follow-up with Dr. Jiménez. Total time spent on discharge = 40 minutes This includes examination of the patient, discharge planning, medication reconciliation, and communication with other providers. Discharge Instructions Discharge Instructions Date of Service Jan 04, 2018. Admission Reason for Admission: Healthcare-Associated Pneumonia Discharge Discharge Diagnosis / Problem: Pneumonia, Right Lower extremities Cellulitis, UTI, Acute kidney injury Discharge Goals Goal(s): Decrease discomfort, Improve function, Improve disease control Activity Recommendations Activity Limitations: resume your previous activity (as tolerated) . Instructions / Follow-Up Instructions / Follow-Up Follow up with your primary care provider Once discharge from [facility] Follow up with Nephrology Dr. Aguilar Follow up with Podiatry Dr. Flannery for routine foot care Follow up with wound care Continue daily wound care Check BMP weekly for 3-4 weeks to monitor renal function Hold Lasix for now and resume lasix once creatine return to baseline (keep close monitor on creatine once resume lasix) Continue follow follow up with the Coumadin clinic (INR 1.9 today) Continue oxygen supplement continue Bipap at night Continue Physical therapy Fall precaution Current Hospital Diet Patient's current hospital diet: AHA Diet (Heart Healthy) Discharge Diet Recommended Diet: AHA Diet (Heart Healthy) Pending Studies Studies pending at discharge: no Medical Emergencies . Who to Call and When: Medical Emergencies: If at any time you feel your situation is an emergency, please call 911 immediately. . Non-Emergent Contact Non-Emergency issues call your: Primary Care Provider Call Non-Emergent contact if: you have any medication questions . . "Provider Documentation" section prepared by Isaac Miles. . VTE Core Measure Inpt VTE Proph given/why not?: Warfarin (Coumadin) Additional Copies To [facility]
--- NOTE | 2018-01-08 09:49 | EDITING REQUIRED CODING QUERY ---
CODING QUERY To promote full compliance with coding requirements relating to patient care, provider participation is requested in all cases of tech writer uncertainty. Please assist us with the question(s) below: Coding Question(s): Patient admitted with pneumonia. Progress note of 12/18 documents " suspected MRSA or gram neg pneumonia". Please document, if known or suspected the specific pneumonia you were treating . Thanks for your help!! Sp Nevarez [facility] Physician's Response(s): Pneumonia on Cxr. CXR showed extensive left lower opacity suggestive of pneumonia. Principal Diagnosis: "_that condition established after study, to be chiefly responsible for occasioning the admission of the patient to the hospital for care." Co-Existing Principal Diagnosis: "_when two or more diagnoses equally meet the criteria for principal diagnosis as determined by the circumstances of admission, diagnostic work up, and/or therapy provided, and the Alphabetic Index, Tabular List, or another coding guideline does not provide sequencing direction, any one of the diagnoses may be sequenced first." "When the physician has documented what appears to be a current diagnosis in the body of the record, but has not included the diagnosis in the final diagnostic statement, the physician should be asked whether the diagnosis should be added." (Source Coding [facility] 2 QTR90. p3-4)
== END 2018-01-04 15:05 | DRG 602 ==
LOC: C.EDC 09:17 → EDBD 09:17 → C.2E 10:22 → ENRESERV 10:31 → C.MED 12-21 05:56
PROVIDERS: ADMIT Hospitalist; ATTEND Internal Medicine
DX: L03.115 Cellulitis of right lower limb (principal); J18.9 Pneumonia, unspecified organism; E46 Unspecified protein-calorie malnutrition; N17.0 Acute kidney failure with tubular necrosis; N39.0 Urinary tract infection, site not specified; J96.11 Chronic respiratory failure with hypoxia; J96.12 Chronic respiratory failure with hypercapnia; I48.92 Unspecified atrial flutter; J44.1 Chronic obstructive pulmonary disease with (acute) exacerbation; L97.909 Non-pressure chronic ulcer of unspecified part of unspecified lower leg with unspecified severity; I95.9 Hypotension, unspecified; B35.1 Tinea unguium; Z79.01 Long term (current) use of anticoagulants; J61 Pneumoconiosis due to asbestos and other mineral fibers; I89.0 Lymphedema, not elsewhere classified; I48.2 Chronic atrial fibrillation; E86.0 Dehydration; Z87.891 Personal history of nicotine dependence; Z79.52 Long term (current) use of systemic steroids; F41.8 Other specified anxiety disorders; B96.1 Klebsiella pneumoniae [K. pneumoniae] as the cause of diseases classified elsewhere

== ENCOUNTER → 2018-01-08 | Outpatient (CLI) | payer OTHER ==
[~2018-01-08] MED LIST changes: +AZIT-57 PO; -BTP80 PO; +CRD30 PO; -CRDCD180 PO; +GUAI1TAB75 PO; -NICO14DI5 TD; +NTRGSL/4 UT; -NTRSLP4 SL; +PRED20TA PO; +SERT-234 PO; +WARF5TAB7 PO; -WARF5TAB90 PO; -ZLF/50 PO
[2018-01-08 12:48] LABS: INR 2.4 (0.9-1.1)
[2018-01-08 12:53] LABS: BASO % 0.4 %; BASO ABS # 0.05 K/uL (0-0.2); EOS % 2.4 %; HEMATOCRIT 35.3 % (42-52); HEMOGLOBIN 10.9 g/dL (14.0-18.0); IG# 0.06 K/uL (0.00-0.02); LYMPH % 10.8 %; LYMPH ABS # 1.36 K/uL (1.2-3.4); MEAN CELL VOLUME 90.7 fL (80-100); MEAN CORPUSCULAR HGB CONC 30.9 g/dl (32-36); MEAN PLATELET VOLUME 8.8 fL (7.4-10.4); MONO % 10.3 %; MONO ABS # 1.29 K/uL (0.11-0.59); NEUT % 75.6 %; NEUT ABS # 9.51 K/uL (1.4-6.5); PLATELET COUNT 126 K/uL (130-400); RED CELL DISTRIBUTION WIDTH CV 14.1 % (11.5-14.5); RED CELL DISTRIBUTION WIDTH SD 46.8 fL (36.4-46.3); WHITE BLOOD COUNT 12.57 K/uL (4.8-10.8)
[2018-01-08 13:58] LABS: BLOOD UREA NITROGEN 33 mg/dl (7-18); CALCIUM 8.5 mg/dl (8.5-10.1); CARBON DIOXIDE 27 mmol/L (21-32); CREATININE 1.81 mg/dl (0.60-1.40); GLUCOSE 81 mg/dl (70-99); SODIUM 138 mmol/L (136-145)
== END ==
LOC: C.LABCC 10:34
PROVIDERS: ATTEND Internal Medicine
DX: I89.0 Lymphedema, not elsewhere classified (principal); N18.9 Chronic kidney disease, unspecified; I48.91 Unspecified atrial fibrillation

== ENCOUNTER → 2018-01-15 | Outpatient (CLI) | payer OTHER ==
[2018-01-15 10:17] LABS: BLOOD UREA NITROGEN 26 mg/dl (7-18); CALCIUM 8.6 mg/dl (8.5-10.1); CARBON DIOXIDE 31 mmol/L (21-32); CREATININE 1.59 mg/dl (0.60-1.40); GLUCOSE 102 mg/dl (70-99); POTASSIUM 3.9 mmol/L (3.5-5.1); SODIUM 135 mmol/L (136-145)
== END ==
LOC: C.LABCC 09:30
PROVIDERS: ATTEND Internal Medicine
DX: I89.0 Lymphedema, not elsewhere classified (principal)

== ENCOUNTER → 2018-01-19 | Outpatient (CLI) | payer OTHER ==
--- NOTE | 2018-01-19 08:56 | DIAGNOSTIC IMAGING REPORT ---
CHEST 2 VIEWS ROUTINE CLINICAL HISTORY: PNEUMONIA COMPARISON STUDY: December 23, 2017 FINDINGS: There is severe pulmonary emphysema. There are small bilateral pleural effusions left greater than right. There are persistent left mid and lower lung zone airspace opacities. There is minimal interval improvement[ IMPRESSION: 1. Severe emphysema 2. Minimal interval improvement in the left mid and lower lung zone airspace opacities suggestive of pneumonia 3. Small bilateral pleural effusions left greater than right Electronically signed by: David Ku M.D. 01/19/2018 8:55 AM Dictated Date/Time: 01/19/2018 8:53 AM
== END | disposition home or self-care (01) ==
LOC: C.RAD1850 08:27
PROVIDERS: ATTEND Internal Medicine
DX: J18.9 Pneumonia, unspecified organism (principal); J43.9 Emphysema, unspecified; J90 Pleural effusion, not elsewhere classified

== ENCOUNTER → 2018-01-22 | Outpatient (CLI) | payer OTHER ==
[2018-01-22 09:20] LABS: BLOOD UREA NITROGEN 17 mg/dl (7-18); CALCIUM 8.6 mg/dl (8.5-10.1); CARBON DIOXIDE 31 mmol/L (21-32); CREATININE 1.28 mg/dl (0.60-1.40); GLUCOSE 95 mg/dl (70-99); POTASSIUM 3.9 mmol/L (3.5-5.1); SODIUM 137 mmol/L (136-145)
== END ==
LOC: C.LABCC 08:46
PROVIDERS: ATTEND Internal Medicine
DX: I89.0 Lymphedema, not elsewhere classified (principal)

== ENCOUNTER → 2018-01-29 | Outpatient (CLI) | payer OTHER ==
[2018-01-29 09:31] LABS: BLOOD UREA NITROGEN 15 mg/dl (7-18); CALCIUM 8.9 mg/dl (8.5-10.1); CARBON DIOXIDE 33 mmol/L (21-32); CREATININE 1.21 mg/dl (0.60-1.40); GLUCOSE 88 mg/dl (70-99); POTASSIUM 4.2 mmol/L (3.5-5.1); SODIUM 136 mmol/L (136-145)
== END ==
LOC: C.LABCC 09:02
PROVIDERS: ATTEND Internal Medicine
DX: I89.0 Lymphedema, not elsewhere classified (principal)

== ENCOUNTER → 2018-01-30 | Outpatient (CLI) | payer OTHER ==
[2018-01-30 10:36] LABS: HEMATOCRIT 33.6 % (42-52); HEMOGLOBIN 10.4 g/dL (14.0-18.0); MEAN CELL VOLUME 89.1 fL (80-100); MEAN CORPUSCULAR HEMOGLOBIN 27.6 pg (25-34); MEAN PLATELET VOLUME 8.6 fL (7.4-10.4); PLATELET COUNT 262 K/uL (130-400); RED CELL DISTRIBUTION WIDTH CV 14.1 % (11.5-14.5); RED CELL DISTRIBUTION WIDTH SD 45.8 fL (36.4-46.3); WHITE BLOOD COUNT 10.66 K/uL (4.8-10.8)
== END ==
LOC: C.LABCC 10:18
PROVIDERS: ATTEND Internal Medicine
DX: D64.9 Anemia, unspecified (principal)

== ENCOUNTER → 2018-01-31 | Outpatient (CLI) | payer OTHER ==
[2018-01-31 10:45] LABS: MEAN CORPUSCULAR HGB CONC 30.2 g/dl (32-36)
[2018-01-31 10:59] LABS: BASO % 0.4 %; BASO ABS # 0.05 K/uL (0-0.2); EOS % 2.3 %; EOS ABS # 0.28 K/uL (0-0.5); HEMATOCRIT 34.1 % (42-52); HEMOGLOBIN 10.3 g/dL (14.0-18.0); IG# 0.09 K/uL (0.00-0.02); LYMPH % 16.8 %; LYMPH ABS # 2.01 K/uL (1.2-3.4); MEAN CELL VOLUME 90.2 fL (80-100); MEAN CORPUSCULAR HEMOGLOBIN 27.2 pg (25-34); MEAN PLATELET VOLUME 8.9 fL (7.4-10.4); MONO % 12.4 %; MONO ABS # 1.48 K/uL (0.11-0.59); NEUT % 67.3 %; NEUT ABS # 8.07 K/uL (1.4-6.5); PLATELET COUNT 267 K/uL (130-400); RED CELL DISTRIBUTION WIDTH CV 14.1 % (11.5-14.5); RED CELL DISTRIBUTION WIDTH SD 46.8 fL (36.4-46.3); WHITE BLOOD COUNT 11.98 K/uL (4.8-10.8)
== END ==
LOC: C.LABCC 09:53
PROVIDERS: ATTEND Internal Medicine
DX: D64.9 Anemia, unspecified (principal)

== ENCOUNTER 2018-03-25 18:26 | Inpatient (IN) | payer OTHER ==
[~2018-03-25] VITALS: Ht 193 cm; Wt 86.4 kg
--- NOTE | 2018-03-25 18:44 | EMERGENCY ROOM VISIT NOTE ---
History Report prepared by [place]: Zarina Lew Under the Supervision of: Yasmine DuongO. First contact with patient: 18:28 Stated Complaint: SHORTNESS OF BREATH/BILATERAL LEG EDEMA History of Present Illness The patient is a 63 year old male who presents to the Emergency Room with complaints of persistent shortness of breath that started last night. He states he is more short of breath than usual. The patient reports he was sitting in a chair and fell sideways. He was short of breath while sitting in the chair. He notes he was unable to get himself back up. He states he hit his head but denies losing consciousness. The patient reports he had an episode of diarrhea immediately after his fall. He notes he felt fine when he got up from his fall. He reports he felt very "sluggish" today. He states he is on 2L of O2 every day and turns it up to 4-5L with any activity. The patient is on Coumadin for Afib. He states he has a cough, sore throat, and chills. Pt denies headache, change in vision, fevers, chest pain, nausea, vomiting, pain with urination, and melena. Patient states his doctors had recently placed him back on prednisone 50 mg as an outpatient as well as another antibiotic. Patient denies any change in his sputum production. Patient denies any new foods or sick contacts otherwise explain the episode of diarrhea. Patient denies any blood with the episode of diarrhea. Patient has not had any recurrent episodes of diarrhea. Source of History: patient Onset: last night Position: other (respiratory) Timing: other (persistent) Associated Symptoms: + chills, + cough, + diarrhea, No headache, No chest pain, No nausea, No vomiting, No melena, No urinary symptoms Review of Systems See HPI for pertinent positives & negatives. A total of 10 systems reviewed and were otherwise negative. Past Medical & Surgical Medical Problems: (1) Anticoagulant long-term use (2) Asbestos exposure (3) Atrial fibrillation with rapid ventricular response (4) Bronchitis (5) Cellulitis (6) Chronic acquired lymphedema (7) Chronic atrial fibrillation (8) COPD (chronic obstructive pulmonary disease) (9) COPD (chronic obstructive pulmonary disease) (10) COPD exacerbation (11) Emphysema of lung (12) Healthcare-associated pneumonia (13) History of tobacco abuse (14) Lymphedema (15) No known allergies (16) pleurodesis (17) Pneumonia (18) Pneumothorax (19) Pneumothorax (20) Respiratory failure, acute (21) SOB (shortness of breath) (22) Tinea unguium Surgical Problems: (1) H/O colonoscopy (2) H/O inguinal hernia repair (3) H/O knee surgery (4) H/O left knee surgery (5) Hx of cholecystectomy (6) Hx of inguinal hernia repair (7) pleurodesis Family History FH: cancer Lung disease Stroke Social History Smoking Status: Former Smoker Drug Use: none Marital Status: Occupation Status: disabled Current/Historical Medications Scheduled Azithromycin (Azithromycin), 250 MG PO DIRECTED Desloratadine (Desloratadine), 5 MG PO QAM Diltiazem HCl (Diltiazem HCl), 30 MG PO TID Furosemide (Lasix), 40 MG PO DAILY Home O2 Therapy (Oxygen), 2 LITERS NA CONTINOUS Metoprolol Succinate (Metoprolol Succinate ER), 25 MG PO DAILY Nitroglycerin (Nitrostat), 0.4 MG UT PRN Potassium Chloride (Potassium Chloride Er), 10 MEQ PO DAILY Probiotic Product (Probiotic), 1 TAB PO DAILY Sertraline (Zoloft), 100 MG PO HS Umeclidinium-Vilanterol (Anoro Ellipta 62.5-25 Mcg/INH), 1 PUFF INH QAM Warfarin Sod (Jantoven), 0.5 MG PO DAILY Warfarin Sod (Jantoven), 3 MG PO DAILY Scheduled PRN Ipratropium-Albuterol (Combivent Respimat), 1 PUFF INH QID PRN for Cough/SOB or Wheezing Ipratropium-Albuterol (Duoneb), 1 TREATMENT INH TID PRN for SOB/Wheezing Lorazepam (Lorazepam), 0.5 MG PO TID PRN for Anxiety/Shortness Of Breath Prednisone (Prednisone), 40 MG PO DIRECTED PRN for COPD Allergies Coded Allergies: Piperacillin (Verified Allergy, Mild, RASH, 01/02/18) rash 01/01/18 most likely due to piperacillin / tazobactam Physical Exam Vital Signs Date Time Temp Pulse Resp B/P (MAP) Pulse Ox O2 Delivery O2 Flow Rate FiO2 03/25/18 20:46 80 22 89/57 96 Nasal Cannula 3.5 5/6/18 18:40 94 03/25/18 18:39 36.7 87 22 104/73 92 Nasal Cannula 3.0 03/25/18 18:39 92 Nasal Cannula 3.0 Physical Exam GENERAL: alert, ill appearing, well nourished, no distress, non-toxic, poor hygiene. EYE EXAM: normal conjunctiva, PERRL and EOM's grossly intact OROPHARYNX: no exudate, no erythema, lips, buccal mucosa, and tongue normal and mucous membranes are moist. Dentures, no trauma noted to oropharynx after removal of dentures. NECK: supple, no nuchal rigidity, no adenopathy, non-tender LUNGS: Increased work of breathing. Diminished breath sounds, coarse cough noted during exam. HEART: no murmurs, S1 normal and S2 normal ABDOMEN: abdomen soft, non-tender, normo-active bowel sounds, no masses, no rebound or guarding. BACK: Back is symmetrical on inspection. 2 areas of ecchymosis that appear recent noted in right mid back laterally. No crepitus, no step off, mildly tender to palpation. SKIN: no rashes and no bruising UPPER EXTREMITIES: upper extremities are grossly normal. LOWER EXTREMITIES: Pelvis stable, large hematoma noted over left hip. Lower extremities greater than 3+ chronic lateral edema with scaling dermatitis. NEURO EXAM: Normal sensorium, cranial nerves II-XII [grossly] intact, normal speech, no [gross] weakness of arms, no [gross] weakness of legs. Medical Decision & Procedures ER Provider Diagnostic Interpretation: Radiology results have been interpreted by the radiologist and reviewed by me. HEAD WITHOUT CONTRAST (CT) CLINICAL HISTORY: 63 years-old Male with trauma, anticoagulated. Acute head trauma TECHNIQUE: Multiple axial CT images of the head were obtained without contrast. A dose lowering technique was utilized adhering to the principles of ALARA. COMPARISON: CT cervical spine of same day. FINDINGS: Motion degraded exam. Mild atrophy. Mild chronic microvascular ischemic changes. Cerebral vascular calcifications are seen at the level of the skull base. No acute intracranial hemorrhage, midline shift, intracranial mass, hydrocephalus, territorial ischemia or abnormal extra-axial collection. The calvarium is intact. Mild polypoid mucosal thickening of the left maxillary sinus. Mastoid air cells are clear. Soft tissues and orbits are unremarkable. Note is made of disconjugate gaze. IMPRESSION: No acute intracranial abnormality or calvarial fracture. The above report was generated using voice recognition software. It may contain grammatical, syntax or spelling errors. Electronically signed by: Aryan Barcenas M.D. 03/25/2018 8:28 PM Dictated Date/Time: 03/25/2018 8:[address] CHEST: Homogeneous thyroid. Mildly prominent AP window lymph nodes measure up to 7 mm. No pathologic adenopathy by CT size criteria. Heart is normal in size without pericardial effusion. Coronary arterial calcifications are noted. Thoracic aorta is normal in course and caliber without aneurysm or dissection. The imaged great vessels appear patent. The opacified pulmonary arterial tree is unremarkable. Severe upper lobe predominant bullous emphysematous disease with pleural parenchymal scarring of the lung apices. There is no pneumothorax or pleural effusion. Linear pleural parenchymal scarring of the right middle lobe with 4 mm solid nodule on image 230 series 12. 2 mm calcified granuloma of the right lung apex. Patchy groundglass and consolidative opacities of the basal left lower lobe. Mild bilateral bronchial wall thickening. Additional consolidative opacities are noted within the lingula with central air bronchograms. Secretions of the tracheobronchial tree. Mild body wall edema of the chest. Bones of the chest appear intact. Minimal multilevel degenerative changes about the thoracic spine. CT ABDOMEN/PELVIS: Prior cholecystectomy. Dropped clip is noted adjacent to the posterior right hepatic lobe. Mild intrahepatic and extrahepatic biliary ductal dilation is likely physiologic. Spleen, pancreas and adrenal glands are within normal limits. Low attenuating lesions of the bilateral kidneys measuring up to 3.0 cm within the superior pole left kidney suggests renal cyst. No renal calculi or obstructive uropathy. There is moderate wall thickening with perivesicular inflammatory stranding involving the bladder. Right lateral bladder diverticulum measures 2.8 cm. Calcifications of the central prostate. Moderate to extensive atherosclerosis of the aorta with mild infrarenal abdominal aortic ectasia, 2.5 cm. No pathologic adenopathy. Tiny sliding-type hiatal hernia. No bowel obstruction or focal bowel wall thickening. Minimal fluid within a small fat filled right inguinal hernia. Fluid is noted within several loops of colon. Normal appendix. Subcutaneous edema about the bilateral hips and abdominal wall. Bones appear intact. Discogenic degenerative changes at L4-L5 and L5-S1. Partially imaged hematoma about the left hip measures up to 4.5 cm. IMPRESSION: 1. Groundglass and consolidative opacities of the basal left lower lobe and lingula suggest pneumonia. Follow-up imaging to document resolution is recommended. 2. Severe bullous emphysematous disease with mild bilateral bronchial wall thickening suggesting bronchitis. 3. 4 mm solid nodule of the right middle lobe. 4. Moderate wall thickening of the bladder with associated perivesicular inflammatory stranding. Correlate with urinalysis to exclude cystitis. 5. No bowel obstruction or focal bowel wall thickening. 6. Partially imaged subcutaneous hematoma about the left hip. No fracture identified. Please refer to below summary of Fleischner criteria recommendations for follow-up of incidental CT nodules (Nuvia Hicks, Guidelines for management of small pulmonary nodules detected on CT scans: A statement from the Fleischner Society, Radiology 237: [phone].) SOLID NODULES Solitary nodule size: <6 mm * Low risk patients: no follow-up needed * high risk patients: optional CT at 12 months Note: newly detected indeterminate nodule in persons 35 years of age or older. * Low risk patients: minimal or absent history of smoking and/or other known risk factors * high risk patients: history of smoking or of other known risk factors (e.g. first degree relative with lung cancer, or exposure to asbestos, radon, uranium) * if a nodule up to 8 mm is partly solid or is ground glass further follow-up is required after 24 months to exclude possible slow growing adenocarcinoma (CORINA) The above report was generated using voice recognition software. It may contain grammatical, syntax or spelling errors. Electronically signed by: Aryan Barcenas M.D. 03/25/2018 9:03 PM Dictated Date/Time: 03/25/2018 8:49 PM CERVICAL SPINE W/O CLINICAL HISTORY: 63 years-old Male with trauma. Acute neck injury status post fall COMPARISON: None. TECHNIQUE: Multiple axial CT images of the cervical spine were obtained without contrast. A dose lowering technique was utilized adhering to the principles of ALARA. FINDINGS: Motion degraded exam. Mild intervertebral disc space narrowing at C4-C5 with uncovertebral spurring. Moderate to severe facet arthrosis on the right at C4-C5. No acute cervical spine fracture or subluxation. Indeterminate 7 mm round lucency of the T1 vertebral body. No definite severe central canal or foraminal narrowing. Waist of the structures is better assessed by MRI. Emphysema with pleural parenchymal scarring of the lung apices. Soft tissues are unremarkable. IMPRESSION: 1. Motion degraded exam without acute fracture or subluxation. 2. Intervertebral disc space narrowing with endplate spurring most pronounced at C4-C5. Multilevel facet arthrosis, most pronounced on the right at C4-C5. 3. Ill-defined indeterminate 7 mm lucent lesion of the T1 vertebral body. This could be further characterized with MRI. 4. Bullous emphysematous disease of the lung apices. The above report was generated using voice recognition software. It may contain grammatical, syntax or spelling errors. Electronically signed by: Aryan Barcenas M.D. 03/25/2018 8:45 PM Dictated Date/Time: 03/25/2018 8:[address] WITH CONTRAST, ABDOMEN AND PELVIS CT WITH CONTRAST CT DOSE: 3676.82 mGy.cm HISTORY: Acute back and upper abdominal pain right upper back, sob TECHNIQUE: Multiaxial CT images of the chest, abdomen and pelvis were performed following the intravenous administration of contrast. A dose lowering technique was utilized adhering to the principles of ALARA. COMPARISON: CTA of the chest 06/03/2016. FINDINGS: CT CHEST: Homogeneous thyroid. Mildly prominent AP window lymph nodes measure up to 7 mm. No pathologic adenopathy by CT size criteria. Heart is normal in size without pericardial effusion. Coronary arterial calcifications are noted. Thoracic aorta is normal in course and caliber without aneurysm or dissection. The imaged great vessels appear patent. The opacified pulmonary arterial tree is unremarkable. Severe upper lobe predominant bullous emphysematous disease with pleural parenchymal scarring of the lung apices. There is no pneumothorax or pleural effusion. Linear pleural parenchymal scarring of the right middle lobe with 4 mm solid nodule on image 230 series 12. 2 mm calcified granuloma of the right lung apex. Patchy groundglass and consolidative opacities of the basal left lower lobe. Mild bilateral bronchial wall thickening. Additional consolidative opacities are noted within the lingula with central air bronchograms. Secretions of the tracheobronchial tree. Mild body wall edema of the chest. Bones of the chest appear intact. Minimal multilevel degenerative changes about the thoracic spine. CT ABDOMEN/PELVIS: Prior cholecystectomy. Dropped clip is noted adjacent to the posterior right hepatic lobe. Mild intrahepatic and extrahepatic biliary ductal dilation is likely physiologic. Spleen, pancreas and adrenal glands are within normal limits. Low attenuating lesions of the bilateral kidneys measuring up to 3.0 cm within the superior pole left kidney suggests renal cyst. No renal calculi or obstructive uropathy. There is moderate wall thickening with perivesicular inflammatory stranding involving the bladder. Right lateral bladder diverticulum measures 2.8 cm. Calcifications of the central prostate. Moderate to extensive atherosclerosis of the aorta with mild infrarenal abdominal aortic ectasia, 2.5 cm. No pathologic adenopathy. Tiny sliding-type hiatal hernia. No bowel obstruction or focal bowel wall thickening. Minimal fluid within a small fat filled right inguinal hernia. Fluid is noted within several loops of colon. Normal appendix. Subcutaneous edema about the bilateral hips and abdominal wall. Bones appear intact. Discogenic degenerative changes at L4-L5 and L5-S1. Partially imaged hematoma about the left hip measures up to 4.5 cm. IMPRESSION: 1. Groundglass and consolidative opacities of the basal left lower lobe and lingula suggest pneumonia. Follow-up imaging to document resolution is recommended. 2. Severe bullous emphysematous disease with mild bilateral bronchial wall thickening suggesting bronchitis. 3. 4 mm solid nodule of the right middle lobe. 4. Moderate wall thickening of the bladder with associated perivesicular inflammatory stranding. Correlate with urinalysis to exclude cystitis. 5. No bowel obstruction or focal bowel wall thickening. 6. Partially imaged subcutaneous hematoma about the left hip. No fracture identified. Please refer to below summary of Fleischner criteria recommendations for follow-up of incidental CT nodules (Nuvia Hicks, Guidelines for management of small pulmonary nodules detected on CT scans: A statement from the Fleischner Society, Radiology 237: [phone].) SOLID NODULES Solitary nodule size: <6 mm * Low risk patients: no follow-up needed * high risk patients: optional CT at 12 months Note: newly detected indeterminate nodule in persons 35 years of age or older. * Low risk patients: minimal or absent history of smoking and/or other known risk factors * high risk patients: history of smoking or of other known risk factors (e.g. first degree relative with lung cancer, or exposure to asbestos, radon, uranium) * if a nodule up to 8 mm is partly solid or is ground glass further follow-up is required after 24 months to exclude possible slow growing adenocarcinoma (CORINA) The above report was generated using voice recognition software. It may contain grammatical, syntax or spelling errors. Electronically signed by: Aryan Barcenas M.D. 03/25/2018 9:03 PM Dictated Date/Time: 03/25/2018 8:49 PM Laboratory Results 03/25/18 19:05 Red Blood Count 2.32, Mean Corpuscular Volume 85.3, Mean Corpuscular Hemoglobin 25.9, Mean Corpuscular Hemoglobin Concent 30.3, Mean Platelet Volume 7.7, Neutrophils (%) (Auto) 90.3, Lymphocytes (%) (Auto) 2.6, Monocytes (%) (Auto) 6.5, Eosinophils (%) (Auto) 0.0, Basophils (%) (Auto) 0.0, Neutrophils # (Auto) 18.61, Lymphocytes # (Auto) 0.54, Monocytes # (Auto) 1.33, Eosinophils # (Auto) 0.00, Basophils # (Auto) 0.00 03/25/18 19:05 Test 03/25/18 19:05 03/25/18 19:26 03/25/18 21:37 White Blood Count 20.61 K/uL (4.8-10.8) Red Blood Count 2.32 M/uL (4.7-6.1) Hemoglobin 6.0 g/dL (14.0-18.0) Hematocrit 19.8 % (42-52) Mean Corpuscular Volume 85.3 fL (80-100) Mean Corpuscular Hemoglobin 25.9 pg (25-34) Mean Corpuscular Hemoglobin Concent 30.3 g/dl (32-36) Platelet Count 270 K/uL (130-400) Mean Platelet Volume 7.7 fL (7.4-10.4) Neutrophils (%) (Auto) 90.3 % Lymphocytes (%) (Auto) 2.6 % Monocytes (%) (Auto) 6.5 % Eosinophils (%) (Auto) 0.0 % Basophils (%) (Auto) 0.0 % Neutrophils # (Auto) 18.61 K/uL (1.4-6.5) Lymphocytes # (Auto) 0.54 K/uL (1.2-3.4) Monocytes # (Auto) 1.33 K/uL (0.11-0.59) Eosinophils # (Auto) 0.00 K/uL (0-0.5) Basophils # (Auto) 0.00 K/uL (0-0.2) RDW Standard Deviation 47.3 fL (36.4-46.3) RDW Coefficient of Variation 15.7 % (11.5-14.5) Immature Granulocyte % (Auto) 0.6 % Immature Granulocyte # (Auto) 0.13 K/uL (0.00-0.02) Nucleated RBC Absolute Count (auto) 0.05 K/uL (0-0) Nucleated Red Blood Cells % 0.3 % Hypochromasia PRESENT Prothrombin Time > 100.0 SECONDS Prothromb Time International Ratio > 10.0 (0.9-1.1) Anion Gap 4.0 mmol/L (3-11) Est Creatinine Clear Calc Drug Dose 62.7 ml/min Estimated GFR () 57.5 Estimated GFR (Non- 49.6 BUN/Creatinine Ratio 24.8 (10-20) Calcium Level 8.2 mg/dl (8.5-10.1) Magnesium Level 2.4 mg/dl (1.8-2.4) Total Bilirubin 0.8 mg/dl (0.2-1) Aspartate Amino Transf (AST/SGOT) 57 U/L (15-37) Alanine Aminotransferase (ALT/SGPT) 25 U/L (12-78) Alkaline Phosphatase 60 U/L (45-117) Troponin I < 0.015 ng/ml (0-0.045) Pro-B-Type Natriuretic Peptide 3588 pg/ml (0-900) Total Protein 6.0 gm/dl (6.4-8.2) Albumin 2.3 gm/dl (3.4-5.0) Globulin 3.7 gm/dl (2.5-4.0) Albumin/Globulin Ratio 0.6 (0.9-2) Procalcitonin 0.21 ng/ml (0-0.5) Arterial Blood pH 7.38 (7.35-7.45) Arterial Blood Partial Pressure CO2 47 mmHg (35-46) Arterial Blood Partial Pressure O2 71 mm/Hg (80-95) Arterial Blood HCO3 27 mmol/L (19-24) Arterial Blood Oxygen Saturation 90.6 % (90-95) Arterial Blood Base Excess 1.4 mEq/L (-9-1.8) Arterial Blood Gas Delivery 4L Nino Test POS (POS) Bedside Lactic Acid Venous 1.45 mmol/L (0.90-1.70) Laboratory results per my review. Medications Administered Medications (Trade) Dose Ordered Sig/Denisse Route Start Time Stop Time Status Last Admin Dose Admin Sodium Chloride 500 ml @ 75 mls/hr [id number] STAT IV 03/25/18 20:12 03/25/18 23:57 DC 03/25/18 20:46 75 MLS/HR Phytonadione 5 mg/ Sodium Chloride 50.5 ml @ 101 mls/hr ONE ONCE IV 03/25/18 20:30 03/25/18 20:59 DC 03/25/18 21:23 101 MLS/HR Sodium Chloride 500 ml @ 999 mls/hr Q31M STAT IV 03/25/18 21:08 03/25/18 21:40 DC 03/25/18 21:23 999 MLS/HR Levofloxacin (Levaquin / D5W) 750 mg NOW STAT IV 03/25/18 21:08 03/25/18 21:09 DC 03/25/18 21:52 750 MG Pantoprazole Sodium 40 mg/ Syringe 10 ml @ 5 mls/min NOW ONCE IV 03/25/18 21:30 03/25/18 21:40 DC 03/25/18 21:51 5 MLS/MIN Albuterol/ Ipratropium (Duoneb) 3 ml NOW STAT INH 03/25/18 21:38 03/25/18 21:40 DC 03/25/18 21:47 3 ML Methylprednisolone Sodium Succinate (Solu-Medrol IV) 40 mg NOW STAT IV 03/25/18 21:37 03/25/18 21:40 DC 03/25/18 21:51 40 MG ECG Per My Interpretation Indication: SOB/dyspnea Rate (beats per minute): 82 Rhythm: sinus rhythm Findings: no acute ischemic change, no ectopy, other (normal axis, normal intervals, low voltage) ED Course 1829: The patient was evaluated in room C7. A complete history and physical exam was performed. 1846: I reviewed patient's EMR. Outpatient labs performed on 02/06/18, Creatinine was 1.36 at that time. 2012: Sodium Chloride 500 ml @ 75 mls/hr IV. 2020: I talked to the patient about his blood transfusion and his test results. He has singed the blood transfusion consent form. Patient states he previously did have GERD but has not had any GERD-like symptoms recently. Patient again denies any black or bloody stools recently. Patient states he has intermittently had nosebleeds due to his Coumadin use, but these were able to be controlled at home. Patient denies bleeding from any other source. 2029: Phytonadione 5 mg/ Sodium Chloride 50.5 ml @ 101 mls/hr Protocol IV. 2107: Levofloxacin 750 mg IV, Sodium Chloride 500 ml @ 999 mls/hr IV. 2109: I reviewed the patient's case with Dr. Brumfield [facility]. She advised I add more Vitamin K and a unit of FFP. 2114: I rechecked the patient and updated him on his treatment plan. SBP was 98 and map of 68. Fluids running. 2119: I reviewed the patient's case with Chris Whipple. He will evaluate the patient for further management. 2129: Pantoprazole 5 mg/ Sodium Chloride 50.5 ml @ 101 mls/hr, Solu-Medrol IV 40 mg IV. 2144: I rechecked the patient and he is having trouble breathing. This seems to be positional as he is hunched over and leaning to the side. I started him on a Neb treatment and his O2 level was improved with positioning. His blood pressure has also improved. Medical Decision Differential diagnosis: Etiologies such as infections, reactive airway disease, pneumonia, pneumothorax , COPD, CHF, cardiac ischemia, pulmonary embolism, musculoskeletal, gastrointestinal, fracture, dislocation, intra-abdominal, pneumothorax, intrathoracic , intracranial, neurologic, as well as other traumatic pathologies were entertained. Patient with complicated presentation. Initial concern for trauma due to fall while on Coumadin. Also discussed with patient possible etiology of his mildly where short of breath compared to baseline. Patient had not had other symptoms more strongly suggestive of fulminant pneumonia. Lower extremity edema chronic , and no rales heard on exam to otherwise suggest acute CHF. As lab values were slowly resulted, patient first found to have a low H&H. He type and screen was immediately added. Platelets were found to be normal. Patient's INR then resulted greater than 10 as this is the top normal value for the lab. Patient denied any recent change in his Coumadin dosing. Patient then found to have an elevated WBC count. Patient was over in CAT scan at this time. Patient was hemodynamically stable, borderline low blood pressure is initially noted, however these improved with IV fluids. Once patient returned, blood cultures and [id number] lactic were added as well as additional antibiotics to cover for possible evolving sepsis. CAT scan and reported pneumonia. No additional traumatic injury noted, no obvious source of bleeding found on imaging. Patient given additional dose of vitamin K and additional orders for FFP while we were awaiting 2 units of packed red cells to come up from the blood bank. Patient cautiously hydrated due to elevated BNP. Patient made aware of all results, and was agreeable with plan. Case discussed with [facility] Hospitalist for additional evaluation and treatment. Patient maintaining oxygen saturations when sitting upright with normal amount of oxygen in place. Patient does desat when he leans forward or slumps to the side. Isolated low blood pressure recorded here, this was taken while patient was lying on his side and likely is somewhat of a positional component. Medication Reconcilliation Current Medication List: was personally reviewed by me Blood Pressure Screening Patient's blood pressure: Normal blood pressure Consults Time Called: 2104 Consulting Physician: LAILA Orellana Returned Call: [phone] I reviewed the patient's case with LAILA Orellana. She advised I add more Vitamin K and a unit of FFP. Additional Consults: Time Called: 2114 Consulted Physician: Chris Whipple Returned Call: [phone] Additional Comments: I reviewed the patient's case with Chris Whipple. He will evaluate the patient for further management. Impression Primary Impression: Sepsis Additional Impressions: Pneumonia Anemia Supratherapeutic INR Bilateral lower extremity edema COPD (chronic obstructive pulmonary disease) Chronic respiratory failure with hypoxia, on home O2 therapy Critical Care I have personally spent 45 minutes of critical care time in the direct management of this patient. This includes bedside care, interpretation of diagnostic studies, and testing, discussion with consultants, patient, and family members, and other required patient management activities. This 45 minutes is in excess of all separately billable procedures. Scribe Attestation The scribe's documentation has been prepared under my direction and personally reviewed by me in its entirety. I confirm that the note above accurately reflects all work, treatment, procedures, and medical decision making performed by me. Departure Information Dispostion Being Evaluated By Hospitalist Referrals LucasEvelia (PCP) Problem Qualifiers Primary Impression: Sepsis Sepsis type: sepsis due to unspecified organism Qualified Codes: A41.9 - Sepsis, unspecified organism Additional Impressions: Pneumonia Pneumonia type: due to unspecified organism Laterality: left Lung location : lower lobe of lung Qualified Codes: J18.1 - Lobar pneumonia, unspecified organism Anemia Anemia type: unspecified type Qualified Codes: D64.9 - Anemia, unspecified COPD (chronic obstructive pulmonary disease) COPD type: COPD with acute lower respiratory infection Qualified Codes: J44.0 - Chronic obstructive pulmonary disease with acute lower respiratory infection
[2018-03-25] MEDS ORDERED: OPTIRAY 320 IV PRN (19:00)
[2018-03-25 19:23] LABS: HEMATOCRIT 19.8 % (42-52); MEAN CELL VOLUME 85.3 fL (80-100); MEAN CORPUSCULAR HEMOGLOBIN 25.9 pg (25-34); MEAN CORPUSCULAR HGB CONC 30.3 g/dl (32-36); MEAN PLATELET VOLUME 7.7 fL (7.4-10.4); NUCLEATED RED BLOOD CELL ABS 0.05 K/uL (0-0); PLATELET COUNT 270 K/uL (130-400); RED CELL DISTRIBUTION WIDTH CV 15.7 % (11.5-14.5); RED CELL DISTRIBUTION WIDTH SD 47.3 fL (36.4-46.3); WHITE BLOOD COUNT 20.61 K/uL (4.8-10.8)
[2018-03-25] MEDS ORDERED: WARF3TAB6 PO (19:33)
[2018-03-25] MEDS ORDERED: WARF1TAB6 PO (19:33)
[2018-03-25] MEDS ORDERED: [UNRECOGNIZED DRUG - CODE] PO (19:33)
[2018-03-25] MEDS ORDERED: TPRSR/25 PO (19:33)
[2018-03-25 19:35] LABS: IG# 0.13 K/uL (0.00-0.02); LYMPH % 2.6 %; LYMPH ABS # 0.54 K/uL (1.2-3.4); MONO % 6.5 %; MONO ABS # 1.33 K/uL (0.11-0.59); NEUT % 90.3 %; NEUT ABS # 18.61 K/uL (1.4-6.5)
[2018-03-25 19:40] LABS: ALBUMIN 2.3 gm/dl (3.4-5.0); ALT/SGPT 25 U/L (12-78); AST/SGOT 57 U/L (15-37); BLOOD UREA NITROGEN 37 mg/dl (7-18); CALCIUM 8.2 mg/dl (8.5-10.1); CARBON DIOXIDE 29 mmol/L (21-32); CREATININE 1.48 mg/dl (0.60-1.40); GLUCOSE 102 mg/dl (70-99); POTASSIUM 4.4 mmol/L (3.5-5.1); SODIUM 138 mmol/L (136-145)
[2018-03-25 19:43] LABS: ALKALINE PHOSPHATASE 60 U/L (45-117)
[2018-03-25 20:07] LABS: INR > 10.0 (0.9-1.1)
[2018-03-25] MEDS ORDERED: SODIUM CHLORIDE 0.9% 500ML 500 ML IV STA ×2 (20:12→21:08)
--- NOTE | 2018-03-25 20:29 | DIAGNOSTIC IMAGING REPORT ---
HEAD WITHOUT CONTRAST (CT) CLINICAL HISTORY: 63 years-old Male with trauma, anticoagulated. Acute head trauma TECHNIQUE: Multiple axial CT images of the head were obtained without contrast. A dose lowering technique was utilized adhering to the principles of ALARA. COMPARISON: CT cervical spine of same day. FINDINGS: Motion degraded exam. Mild atrophy. Mild chronic microvascular ischemic changes. Cerebral vascular calcifications are seen at the level of the skull base. No acute intracranial hemorrhage, midline shift, intracranial mass, hydrocephalus, territorial ischemia or abnormal extra-axial collection. The calvarium is intact. Mild polypoid mucosal thickening of the left maxillary sinus. Mastoid air cells are clear. Soft tissues and orbits are unremarkable. Note is made of disconjugate gaze. IMPRESSION: No acute intracranial abnormality or calvarial fracture. The above report was generated using voice recognition software. It may contain grammatical, syntax or spelling errors. Electronically signed by: Aryan Barcenas M.D. 03/25/2018 8:28 PM Dictated Date/Time: 03/25/2018 8:25 PM
[2018-03-25] MEDS ORDERED: PHYTONADIONE INJ 5 MG in SODIUM CHLORIDE 0.9% 50ML 50 ML IV ONE ×2 (20:30→21:30)
--- NOTE | 2018-03-25 20:46 | DIAGNOSTIC IMAGING REPORT ---
CERVICAL SPINE W/O CLINICAL HISTORY: 63 years-old Male with trauma. Acute neck injury status post fall COMPARISON: None. TECHNIQUE: Multiple axial CT images of the cervical spine were obtained without contrast. A dose lowering technique was utilized adhering to the principles of ALARA. FINDINGS: Motion degraded exam. Mild intervertebral disc space narrowing at C4-C5 with uncovertebral spurring. Moderate to severe facet arthrosis on the right at C4-C5. No acute cervical spine fracture or subluxation. Indeterminate 7 mm round lucency of the T1 vertebral body. No definite severe central canal or foraminal narrowing. Waist of the structures is better assessed by MRI. Emphysema with pleural parenchymal scarring of the lung apices. Soft tissues are unremarkable. IMPRESSION: 1. Motion degraded exam without acute fracture or subluxation. 2. Intervertebral disc space narrowing with endplate spurring most pronounced at C4-C5. Multilevel facet arthrosis, most pronounced on the right at C4-C5. 3. Ill-defined indeterminate 7 mm lucent lesion of the T1 vertebral body. This could be further characterized with MRI. 4. Bullous emphysematous disease of the lung apices. The above report was generated using voice recognition software. It may contain grammatical, syntax or spelling errors. Electronically signed by: Aryan Barcenas M.D. 03/25/2018 8:45 PM Dictated Date/Time: 03/25/2018 8:39 PM
--- NOTE | 2018-03-25 21:04 | DIAGNOSTIC IMAGING REPORT ---
CHEST CT WITH CONTRAST, ABDOMEN AND PELVIS CT WITH CONTRAST CT DOSE: 3676.82 mGy.cm HISTORY: Acute back and upper abdominal pain right upper back, sob TECHNIQUE: Multiaxial CT images of the chest, abdomen and pelvis were performed following the intravenous administration of contrast. A dose lowering technique was utilized adhering to the principles of ALARA. COMPARISON: CTA of the chest 06/03/2016. FINDINGS: CT CHEST: Homogeneous thyroid. Mildly prominent AP window lymph nodes measure up to 7 mm. No pathologic adenopathy by CT size criteria. Heart is normal in size without pericardial effusion. Coronary arterial calcifications are noted. Thoracic aorta is normal in course and caliber without aneurysm or dissection. The imaged great vessels appear patent. The opacified pulmonary arterial tree is unremarkable. Severe upper lobe predominant bullous emphysematous disease with pleural parenchymal scarring of the lung apices. There is no pneumothorax or pleural effusion. Linear pleural parenchymal scarring of the right middle lobe with 4 mm solid nodule on image 230 series 12. 2 mm calcified granuloma of the right lung apex. Patchy groundglass and consolidative opacities of the basal left lower lobe. Mild bilateral bronchial wall thickening. Additional consolidative opacities are noted within the lingula with central air bronchograms. Secretions of the tracheobronchial tree. Mild body wall edema of the chest. Bones of the chest appear intact. Minimal multilevel degenerative changes about the thoracic spine. CT ABDOMEN/PELVIS: Prior cholecystectomy. Dropped clip is noted adjacent to the posterior right hepatic lobe. Mild intrahepatic and extrahepatic biliary ductal dilation is likely physiologic. Spleen, pancreas and adrenal glands are within normal limits. Low attenuating lesions of the bilateral kidneys measuring up to 3.0 cm within the superior pole left kidney suggests renal cyst. No renal calculi or obstructive uropathy. There is moderate wall thickening with perivesicular inflammatory stranding involving the bladder. Right lateral bladder diverticulum measures 2.8 cm. Calcifications of the central prostate. Moderate to extensive atherosclerosis of the aorta with mild infrarenal abdominal aortic ectasia, 2.5 cm. No pathologic adenopathy. Tiny sliding-type hiatal hernia. No bowel obstruction or focal bowel wall thickening. Minimal fluid within a small fat filled right inguinal hernia. Fluid is noted within several loops of colon. Normal appendix. Subcutaneous edema about the bilateral hips and abdominal wall. Bones appear intact. Discogenic degenerative changes at L4-L5 and L5-S1. Partially imaged hematoma about the left hip measures up to 4.5 cm. IMPRESSION: 1. Groundglass and consolidative opacities of the basal left lower lobe and lingula suggest pneumonia. Follow-up imaging to document resolution is recommended. 2. Severe bullous emphysematous disease with mild bilateral bronchial wall thickening suggesting bronchitis. 3. 4 mm solid nodule of the right middle lobe. 4. Moderate wall thickening of the bladder with associated perivesicular inflammatory stranding. Correlate with urinalysis to exclude cystitis. 5. No bowel obstruction or focal bowel wall thickening. 6. Partially imaged subcutaneous hematoma about the left hip. No fracture identified. Please refer to below summary of Fleischner criteria recommendations for follow-up of incidental CT nodules (Nuvia Hicks, Guidelines for management of small pulmonary nodules detected on CT scans: A statement from the Fleischner Society, Radiology 237: [id number].) SOLID NODULES Solitary nodule size: <6 mm * Low risk patients: no follow-up needed * high risk patients: optional CT at 12 months Note: newly detected indeterminate nodule in persons 35 years of age or older. * Low risk patients: minimal or absent history of smoking and/or other known risk factors * high risk patients: history of smoking or of other known risk factors (e.g. first degree relative with lung cancer, or exposure to asbestos, radon, uranium) * if a nodule up to 8 mm is partly solid or is ground glass further follow-up is required after 24 months to exclude possible slow growing adenocarcinoma ([place]) The above report was generated using voice recognition software. It may contain grammatical, syntax or spelling errors. Electronically signed by: Aryan Barcenas M.D. 03/25/2018 9:03 PM Dictated Date/Time: 03/25/2018 8:49 PM
[2018-03-25] MEDS ORDERED: LEVAQUIN 750MG / 150ML D5W IV STA (21:08)
[2018-03-25] MEDS ORDERED: PANTOprazole INJ 40 MG in SYRINGE 0 ML IV ONE (21:30)
[2018-03-25] MEDS ORDERED: ALBUT/IPRATROP 3MG/0.5MG NEB 3 ML VIAL INH STA (21:38)
[2018-03-25] MEDS ORDERED: METHYLPREDNISOLONE IV 40 MG in SYRINGE 0 ML IV ONE (21:45)
[2018-03-25 22:32] VITALS: Ht 193 cm; Wt 86.4 kg
[2018-03-25] MEDS ORDERED: HYDROmorphone INJ 0.5 MG/0.5 ML SYR IV PRN (22:45)
[2018-03-25] MEDS ORDERED: NITROGLYCERIN 0.4 MG SL PER TAB CHARGE SL PRN (22:45)
[2018-03-25] MEDS ORDERED: PROCHLORPERAZINE INJ 5 MG in SYRINGE 4 ML IV PRN (22:45)
[2018-03-25] MEDS ORDERED: LEVALBUTEROL/IPRATROPIUM NEB INH PRN (22:45)
[2018-03-25] MEDS ORDERED: ACETAMINOPHEN 325 MG TAB PO PRN (22:45)
[2018-03-25 23:12] VITALS: BP 95/57; PULSE 85; TEMP 36.3; O2SAT 99
[2018-03-25 23:59] VITALS: BP 102/69; PULSE 82; TEMP 36; O2SAT 100
[2018-03-25] MEDS ORDERED: SODIUM CHLORIDE 0.9% 1000ML 1,000 ML IV ONE (23:59)
[2018-03-26] VITALS (38 sets, daily range): BP systolic 91–135; BP diastolic 59–90; PULSE 74–94; TEMP 35.9–36.8; O2SAT 92–100
[2018-03-26] MEDS ORDERED: PHYTONADIONE INJ 5 MG in SODIUM CHLORIDE 0.9% 50ML 50 ML IV ONE (00:30)
[2018-03-26] MEDS: LEVALBUTEROL 1.25MG/0.5ML NEB INH SCH ×4 (01:46→19:36)
[2018-03-26] MEDS: IPRATROPIUM BROMIDE NEB SOLN 0.02% 2.5 ML VIAL INH SCH ×4 (01:47→19:36)
[2018-03-26] MEDS ORDERED: LEVALBUTEROL/IPRATROPIUM NEB INH SCH (03:00)
--- NOTE | 2018-03-26 06:19 | HISTORY & PHYSICAL EXAMINATION ---
DATE OF ADMISSION: 03/25/2018 PRIMARY CARE DOCTOR: Uriel Jiménez MD. CHIEF COMPLAINT: Shortness of breath. HISTORY OF PRESENT ILLNESS: History obtained from patient and records. Medical history significant for chronic respiratory failure secondary to COPD on home O2, PAFib on Coumadin, history of pneumothorax as per records, past tobacco abuse, asbestos exposure, chronic LE lymphedema. Chronic anemia (baseline hemoglobin 10) Recent confinement in November 2017 for cellulitis and healthcare-associated pneumonia. Last 2 days, patient had been feeling well, more short of breath than usual. Increasing shortness of breath, cough productive of yellow sputum. Unknown sick contacts. Denies bladder discomfort. Denies aspiration. Initial azithromycin and prednisone tab taken at home from rescue kit. He fell on his left side, achy bottom, loose stools noted, nonbloody. Patient denies headache, chest pain. Increase LE swelling. At the Emergency Room, patient given Levaquin for pneumonia. INR was noted to be greater than 10. Given vitamin K. MEDICAL HISTORY: As above. A 2D echo from October of 2017 showed EF 55%, no pulmonary hypertension, no significant valvular disease. 2014 colonoscopy showed polyps and diverticulosis and internal hemorrhoids. SURGICAL HISTORY: Hernia repair, knee surgery, cholecystectomy. MEDICATIONS: Home meds azithromycin/prednisone rescue kit, loratadine, diltiazem, furosemide, oxygen, Combivent, DuoNeb, lorazepam, metoprolol, Nitrostat, probiotic, Zoloft, Ellipta , Coumadin. ALLERGIES: PIPERACILLIN. FAMILY HISTORY: There is a family history of lung disease, stroke. PERSONAL AND SOCIAL HISTORY: Past tobacco use. No chronic intake of alcoholic beverages. Former work with [employer]. REVIEW OF SYSTEMS: As per HPI, all 10 systems reviewed. All other ROS negative. PHYSICAL EXAMINATION: VITAL SIGNS: Blood pressure was noted to be 104/73, heart rate 95, pulse rate 86, RR 22, temperature 36.7, O2 sats 96 on 2.5. GENERAL: Noted to be chronically ill, no respiratory distress. SKIN: Pallor, warm. HEENT: Pale palpebral conjunctivae. No ptosis. Dry mucosa. Bespectacled. Nasal cannula in place. NECK: Supple, nontender. CHEST: Decreased breath sounds. No wheezes. HEART: Regular rate and rhythm. No murmur. ABDOMEN: Some distention, nontender. BACK: Ecchymosis on the left buttock, L hip lumbosacral area RECTAL: Intact sphincter, yellow stool, heme positive. EXTREMITIES: Bilateral lower extremity lymphedema. No tenderness. NEUROLOGIC: Coherent, occasionally sleepy. No facial asymmetry, gait and stance not assessed. LABORATORY DATA: Hemoglobin was noted to be 6, hematocrit 19.8, white cell count was 20, platelets noted to be 270. Sodium 138, potassium 4.4, chloride 105, CO2 of 24, BUN 37, creatinine 1.48. Glucose was noted to be 102. INR noted to be greater 10. ABG, pH 7.38, pCO2 of 47, pO2 of [address] head, no acute pathology. Cervical spine CT intervertebral disc space narrowing most pronounced at C4-C5, ill-defined lucent lesion T1 vertebral body. Chest CT, ground-glass consolidation, basal left upper lobe lingula suggesting pneumonia, severe bullous emphysematous disease with bilateral bronchial wall thickening suggesting bronchitis. No bowel obstruction, possible cystitis, partially imaged subcutaneous hematoma on left hip, no fracture. EKG as per my interpretation, rate 85, normal sinus rhythm, low voltage. ASSESSMENT: 1. Tgwke-uh-yjkbsmi hypoxemic respiratory failure secondary to chronic obstructive pulmonary disease exacerbation secondary to community acquired pneumonia Failed outpatient treatment possible sepsis 2. rmaxw-us-fkvhugd anemia progressive hemoglobin drop from baseline of 12 from last year Marked drop likely secondary to traumatic pelvic contusion, hematoma in the setting of Coumadin coagulopathy Occult GI bleed (likely diverticular) possibly contributory 3. PAF, on Coumadin. NSR, INR supratherapeutic. 4. HTN, BP on the lower side 5. chronic lymphedema. Patient complaining of increase LE swelling rule out DVT 6. diarrhea ro C. diff. 7. Past tobacco abuse. PLAN: PCU supplemental O2. Levaquin, Solu-Medrol, nebs RTC p.r.n. May need Pulmonary consult for COPD exacerbation if without improvement. Coumadin coagulopathy reversal with vitamin K and FFP. Transfuse packed RBC to maintain hemoglobin greater than 7 and/or for symptomatic anemia Appropriate to hold Coumadin for now given traumatic hematoma leading to severe anemia. Will need to reevaluate eligibility for continued home Rx for Coumadin pending PT OT evaluation given functional disability/fall risk.. LE venous Dopplers rule out DVT stool C. diff. DVT prophylaxis, SCDs while patient off Coumadin while INR less than 2. Full code. Total critical care time was 45 minutes. MTDD
[2018-03-26] MEDS: LACTOBACILLUS ACIDOPHILUS (FLORANEX) TAB PO SCH (07:59)
[2018-03-26] MEDS: METOPROLOL SUCC 25MG EXT REL TAB PO SCH (07:59)
[2018-03-26] MEDS ORDERED: LEVOFLOXACIN CONSULT ACTIVE PRN (09:00)
[2018-03-26 09:15] LABS: HEMATOCRIT 21.9 % (42-52); HEMOGLOBIN 6.9 g/dL (14.0-18.0); INR 1.4 (0.9-1.1); MEAN CELL VOLUME 86.2 fL (80-100); MEAN CORPUSCULAR HEMOGLOBIN 27.2 pg (25-34); MEAN CORPUSCULAR HGB CONC 31.5 g/dl (32-36); MEAN PLATELET VOLUME 8.1 fL (7.4-10.4); PLATELET COUNT 246 K/uL (130-400); RED CELL DISTRIBUTION WIDTH CV 15.3 % (11.5-14.5); RED CELL DISTRIBUTION WIDTH SD 47.8 fL (36.4-46.3); WHITE BLOOD COUNT 15.37 K/uL (4.8-10.8)
[2018-03-26 09:26] LABS: BASO % 0.1 %; BASO ABS # 0.01 K/uL (0-0.2); IG# 0.17 K/uL (0.00-0.02); LYMPH % 2.3 %; LYMPH ABS # 0.35 K/uL (1.2-3.4); MONO % 9.4 %; MONO ABS # 1.44 K/uL (0.11-0.59); NEUT % 87.1 %
[2018-03-26 09:45] LABS: CALCIUM 7.7 mg/dl (8.5-10.1); CREATININE 1.24 mg/dl (0.60-1.40); POTASSIUM 4.3 mmol/L (3.5-5.1)
--- NOTE | 2018-03-26 09:52 | DIAGNOSTIC IMAGING REPORT ---
ULTRASOUND VENOUS DOPPLER LWR EXT BILA CLINICAL HISTORY: Bilateral leg swelling COMPARISON STUDY: November 15, 2017 FINDINGS: Real-time and color flow Doppler imaging were performed. Flow was seen within the femoral, popliteal and calf veins with no intraluminal thrombus demonstrated. The saphenous vein is patent. IMPRESSION: No evidence of lower extremity DVT. Electronically signed by: David Ku M.D. 03/26/2018 9:50 AM Dictated Date/Time: 03/26/2018 9:50 AM
--- NOTE | 2018-03-26 11:37 | Progress Note ---
Internal Med Progress Note Date of Service: March 26, 2018. Provider Documentation: SUBJECTIVE: The patient was seen and examined in telemetry unit He complains to have weakness and tiredness and a little more shortness of breath Does not have any pain at the hematoma site Denies any chest pain, palpitation, nausea and/or vomiting OBJECTIVE: Vital Signs-as noted below Exam: General-moderate distress at rest Eyes-normal ENT-normal Neck-supple Lungs-decreased breath sounds bilaterally with occasional wheezing Heart-irregular Abdomen-benign, soft, nontender Extremities-trace edema bilaterally with chronic skin changes Neuro-alert and awake Generally weak No focal neuro deficit Lab data as noted below. ASSESSMENT & PLAN: Chqps-yh-svrvdgr hypoxemic respiratory failure Secondary to chronic obstructive pulmonary disease exacerbation Complicated by community acquired pneumonia, Supplemental O2.Prednisone, nebs, RTC p.r.n. Levaquin started If no improvement ,will need Pulmonary evaluation Acute Blood Loss Anemia-Hematoma left hip area Ojjqn-fs-tcfxiox anemia, Progressive hemoglobin drop from baseline of 12 from last year, 6, significant drop secondary to traumatic pelvic contusion, hematoma, Occult GI bleed-Guiac positive -no overt GI bleeding, Transfuse packed RBC to maintain hemoglobin > 7 and/or symptomatic anemia. Received 2 units PRBC --Hb <7 Will give 2 more Units Monitor Hb Past tobacco abuse. Afib, PAF, on Coumadin. Patient NSR, INR supratherapeutic.>10 Received Vit K and FFP INR this AM -1.4 Chronic lymphedema. Bilateral legs swelling, chronic Skin changes US --no DVT DVT prophylaxis, SCDs for now likely to resume when Hb is stable and no more bleeding Full code. Vital Signs: Date Time Temp Pulse Resp B/P (MAP) Pulse Ox O2 Delivery O2 Flow Rate FiO2 03/26/18 08:00 92 Nasal Cannula 3.0 03/26/18 07:34 36.4 87 22 110/75 96 3.0 03/26/18 07:18 94 20 126/90 94 3.0 03/26/18 07:01 83 18 100 Mask 4.0 03/26/18 07:00 82 20 116/75 100 3.0 03/26/18 06:46 81 22 108/74 100 3.0 03/26/18 06:30 36.8 78 18 102/68 (79) 100 Oxymask 5.0 03/26/18 06:16 76 18 115/79 (91) 99 Oxymask 5.0 03/26/18 05:39 36.0 79 16 109/65 100 5.0 03/26/18 05:22 36.4 83 15 110/70 100 5.0 03/26/18 04:52 80 16 115/73 100 6.0 03/26/18 04:21 81 18 103/63 100 6.0 03/26/18 04:10 36.0 74 18 101/64 100 03/26/18 04:00 100 Oxymask 7.0 03/26/18 03:30 36.0 75 19 99/61 (74) 100 Humidified Air 7.0 Oxymask 03/26/18 03:07 36.8 86 18 103/66 100 03/26/18 02:39 81 18 102/64 100 03/26/18 02:29 36.1 86 18 99/61 100 03/26/18 02:18 79 18 99/62 (74) 100 Oxymask 7.0 03/26/18 02:08 35.9 81 16 104/67 100 7.0 03/26/18 01:47 78 16 100 Mask 03/26/18 01:45 36.0 76 18 113/71 100 7.0 03/26/18 00:47 36.7 76 16 110/77 100 7.0 03/26/18 00:17 36.1 84 91/59 93 7.0 03/26/18 00:01 100 Oxymask 7.0 03/25/18 23:59 36.0 82 24 102/69 100 7.0 03/25/18 23:12 36.3 85 22 95/57 (70) 99 Oxymask 7.0 03/25/18 22:32 3.5 03/25/18 21:53 86 22 121/74 100 Nebulizer 03/25/18 20:46 80 22 89/57 96 Nasal Cannula 3.5 03/25/18 18:40 94 03/25/18 18:39 36.7 87 22 104/73 92 Nasal Cannula 3.0 03/25/18 18:39 92 Nasal Cannula 3.0 Lab Results: Results Past 24 Hours Test 03/25/18 19:05 03/25/18 19:26 03/25/18 21:37 5/6/18 23:12 Range/Units White Blood Count 20.61 4.8-10.8 K/uL Red Blood Count 2.32 4.7-6.1 M/uL Hemoglobin 6.0 14.0-18.0 g/dL Hematocrit 19.8 42-52 % Mean Corpuscular Volume 85.3 80-100 fL Mean Corpuscular Hemoglobin 25.9 25-34 pg Mean Corpuscular Hemoglobin Concent 30.3 32-36 g/dl Platelet Count 270 130-400 K/uL Mean Platelet Volume 7.7 7.4-10.4 fL Neutrophils (%) (Auto) 90.3 % Lymphocytes (%) (Auto) 2.6 % Monocytes (%) (Auto) 6.5 % Eosinophils (%) (Auto) 0.0 % Basophils (%) (Auto) 0.0 % Neutrophils # (Auto) 18.61 1.4-6.5 K/uL Lymphocytes # (Auto) 0.54 1.2-3.4 K/uL Monocytes # (Auto) 1.33 0.11-0.59 K/uL Eosinophils # (Auto) 0.00 0-0.5 K/uL Basophils # (Auto) 0.00 0-0.2 K/uL RDW Standard Deviation 47.3 36.4-46.3 fL RDW Coefficient of Variation 15.7 11.5-14.5 % Immature Granulocyte % (Auto) 0.6 % Immature Granulocyte # (Auto) 0.13 0.00-0.02 K/uL Nucleated RBC Absolute Count (auto) 0.05 0-0 K/uL Nucleated Red Blood Cells % 0.3 % Hypochromasia PRESENT Prothrombin Time > 100.0 9.0-12.0 SECONDS Prothromb Time International Ratio > 10.0 0.9-1.1 Sodium Level 138 136-145 mmol/L Potassium Level 4.4 3.5-5.1 mmol/L Chloride Level 105 98-107 mmol/L Carbon Dioxide Level 29 21-32 mmol/L Anion Gap 4.0 3-11 mmol/L Blood Urea Nitrogen 37 7-18 mg/dl Creatinine 1.48 0.60-1.40 mg/dl Est Creatinine Clear Calc Drug Dose 62.7 ml/min Estimated GFR () 57.5 Estimated GFR (Non- 49.6 BUN/Creatinine Ratio 24.8 10-20 Random Glucose 102 70-99 mg/dl Calcium Level 8.2 8.5-10.1 mg/dl Magnesium Level 2.4 1.8-2.4 mg/dl Total Bilirubin 0.8 0.2-1 mg/dl Aspartate Amino Transf (AST/SGOT) 57 15-37 U/L Alanine Aminotransferase (ALT/SGPT) 25 12-78 U/L Alkaline Phosphatase 60 45-117 U/L Troponin I < 0.015 0-0.045 ng/ml Pro-B-Type Natriuretic Peptide 3588 0-900 pg/ml Total Protein 6.0 6.4-8.2 gm/dl Albumin 2.3 3.4-5.0 gm/dl Globulin 3.7 2.5-4.0 gm/dl Albumin/Globulin Ratio 0.6 0.9-2 Procalcitonin 0.21 0-0.5 ng/ml Arterial Blood pH 7.38 7.35-7.45 Arterial Blood Partial Pressure CO2 47 35-46 mmHg Arterial Blood Partial Pressure O2 71 80-95 mm/Hg Arterial Blood HCO3 27 19-24 mmol/L Arterial Blood Oxygen Saturation 90.6 90-95 % Arterial Blood Base Excess 1.4 -9-1.8 mEq/L Arterial Blood Gas Delivery 4L Nino Test POS POS Bedside Lactic Acid Venous 1.45 0.90-1.70 mmol/L Ammonia 14.0 11-32 umol/L Test 03/26/18 08:15 03/26/18 08:49 Range/Units Urine Color YELLOW Urine Appearance CLOUDY CLEAR Urine pH 7.5 4.5-7.5 Urine Specific Larsen 1.032 1.000-1.030 Urine Protein NEG NEG Urine Glucose (UA) NEG NEG Urine Ketones NEG NEG Urine Occult Blood TRACE NEG Urine Nitrite NEG NEG Urine Bilirubin NEG NEG Urine Urobilinogen NEG NEG Urine Leukocyte Esterase LARGE NEG Urine WBC (Auto) >30 0-5 /hpf Urine RBC (Auto) 5-10 0-4 /hpf Urine Hyaline Casts (Auto) 1-5 0-5 /lpf Urine Epithelial Cells (Auto) 5-10 0-5 /lpf Urine Bacteria (Auto) 2+ NEG White Blood Count 15.37 4.8-10.8 K/uL Red Blood Count 2.54 4.7-6.1 M/uL Hemoglobin 6.9 14.0-18.0 g/dL Hematocrit 21.9 42-52 % Mean Corpuscular Volume 86.2 80-100 fL Mean Corpuscular Hemoglobin 27.2 25-34 pg Mean Corpuscular Hemoglobin Concent 31.5 32-36 g/dl Platelet Count 246 130-400 K/uL Mean Platelet Volume 8.1 7.4-10.4 fL Neutrophils (%) (Auto) 87.1 % Lymphocytes (%) (Auto) 2.3 % Monocytes (%) (Auto) 9.4 % Eosinophils (%) (Auto) 0.0 % Basophils (%) (Auto) 0.1 % Neutrophils # (Auto) 13.40 1.4-6.5 K/uL Lymphocytes # (Auto) 0.35 1.2-3.4 K/uL Monocytes # (Auto) 1.44 0.11-0.59 K/uL Eosinophils # (Auto) 0.00 0-0.5 K/uL Basophils # (Auto) 0.01 0-0.2 K/uL RDW Standard Deviation 47.8 36.4-46.3 fL RDW Coefficient of Variation 15.3 11.5-14.5 % Immature Granulocyte % (Auto) 1.1 % Immature Granulocyte # (Auto) 0.17 0.00-0.02 K/uL Nucleated RBC Absolute Count (auto) 0.10 0-0 K/uL Nucleated Red Blood Cells % 0.7 % Polychromasia 1+ Prothrombin Time 14.2 9.0-12.0 SECONDS Prothromb Time International Ratio 1.4 0.9-1.1 Sodium Level 140 136-145 mmol/L Potassium Level 4.3 3.5-5.1 mmol/L Chloride Level 107 98-107 mmol/L Carbon Dioxide Level 29 21-32 mmol/L Anion Gap 4.0 3-11 mmol/L Blood Urea Nitrogen 34 7-18 mg/dl Creatinine 1.24 0.60-1.40 mg/dl Est Creatinine Clear Calc Drug Dose 74.8 ml/min Estimated GFR () 71.3 Estimated GFR (Non- 61.5 BUN/Creatinine Ratio 27.7 10-20 Random Glucose 120 70-99 mg/dl Calcium Level 7.7 8.5-10.1 mg/dl Microbiology Results 03/25/18 Blood Culture, Received Pending 03/25/18 Blood Culture, Received Pending 03/26/18 Urine Culture, Received Pending
[2018-03-26 18:37] LABS: HEMATOCRIT 27.7 % (42-52); HEMOGLOBIN 8.8 g/dL (14.0-18.0)
[2018-03-26] MEDS: LEVOFLOXACIN 750 MG TAB PO SCH (20:38)
[2018-03-26] MEDS: SERTRALINE HCL 100 MG TAB PO SCH (20:38)
[2018-03-27] VITALS (10 sets, daily range): BP systolic 103–120; BP diastolic 65–79; PULSE 73–105; TEMP 36.4–36.9; O2SAT 92–100
[2018-03-27] MEDS: LEVALBUTEROL 1.25MG/0.5ML NEB INH SCH ×4 (02:12→18:52)
[2018-03-27] MEDS: IPRATROPIUM BROMIDE NEB SOLN 0.02% 2.5 ML VIAL INH SCH ×4 (02:12→18:52)
[2018-03-27] MEDS: TRAMADOL HCL 50 MG TAB PO PRN ×2 (02:46→09:51)
[2018-03-27 06:03] LABS: BASO % 0.1 %; BASO ABS # 0.02 K/uL (0-0.2); HEMATOCRIT 27.6 % (42-52); HEMOGLOBIN 8.5 g/dL (14.0-18.0); IG# 0.14 K/uL (0.00-0.02); LYMPH % 2.9 %; LYMPH ABS # 0.42 K/uL (1.2-3.4); MEAN CELL VOLUME 87.3 fL (80-100); MEAN CORPUSCULAR HEMOGLOBIN 26.9 pg (25-34); MEAN CORPUSCULAR HGB CONC 30.8 g/dl (32-36); MEAN PLATELET VOLUME 8.2 fL (7.4-10.4); MONO % 11.1 %; MONO ABS # 1.59 K/uL (0.11-0.59); NEUT % 84.9 %; NUCLEATED RED BLOOD CELL ABS 0.12 K/uL (0-0); PLATELET COUNT 197 K/uL (130-400); RED CELL DISTRIBUTION WIDTH CV 16.5 % (11.5-14.5); RED CELL DISTRIBUTION WIDTH SD 51.2 fL (36.4-46.3); WHITE BLOOD COUNT 14.27 K/uL (4.8-10.8)
[2018-03-27 06:17] LABS: INR 1.1 (0.9-1.1)
[2018-03-27 06:39] LABS: CALCIUM 7.3 mg/dl (8.5-10.1); POTASSIUM 4.3 mmol/L (3.5-5.1)
[2018-03-27] MEDS: LACTOBACILLUS ACIDOPHILUS (FLORANEX) TAB PO SCH (07:39)
[2018-03-27] MEDS: METOPROLOL SUCC 25MG EXT REL TAB PO SCH (07:39)
--- NOTE | 2018-03-27 07:44 | Clinical Documentation Query ---
SHAWN Dior : CLINICAL DOCUMENTATION QUERY Patient is a 63 year old male admitted for: "[id number] hypoxemic respiratory failure Secondary to chronic obstructive pulmonary disease exacerbation Complicated by community acquired pneumonia" and "Acute Blood Loss Anemia-Hematoma left hip area Ybexn-uu-[id number] anemia, Progressive hemoglobin drop from baseline of 12 from last year, 6, significant drop secondary to traumatic pelvic contusion, hematoma" On admission, INR > 10 in the setting of Coumadin use. As appropriate, consider documentation as suggested below as this impacts accurate DRG assignment. In your clinical opinion is this patient being managed for: ( ) Drug induced hemorrhagic disorder due to Coumadin ( X ) Not Agree ( ) Other explanation of clinical findings (Please Explain. If no explanation given, this would be considered a no response.) ( ) Unable to determine ( ) Need to Discuss (Please call CDS via extension or qliq. If no interaction occurs this is considered a no response.) The medical record reflects the following clinical findings, treatment, and risk factors. Clinical Indicators: As above Treatment: Serial hematology, holding of Coumadin, IV Vitamin K, transfusion of PRBC's and FFP Risk Factors: Coumadin use Coding [facility] [id number], p14 Question: Should bleeding due to therapeutic anticoagulant be coded as a hemorrhagic disorder (category D68)? Answer: For the most part, "hemorrhagic disorder" or "coagulation defects" must be specifically diagnosed and documented by the provider, in order to assign codes at category D68, Other coagulation defects. However, for bleeding such as hemoptysis, hematuria, hematemesis, hematochezia, etc., that is associated with a drug, as part of anticoagulation therapy, assign code D68.32, Hemorrhagic disorder due to extrinsic circulating anticoagulants. This is supported by the inclusion term at D68.32 of "Drug-induced hemorrhagic disorder." The sequencing of code D68.32 and other codes describing the type or site of bleeding, (e.g., hemoptysis or hematuria), would be dependent on the circumstances of the admission. Copyright (2018), [employer] ("[employer]"), [place], [place]. Reproduced with permission. No portion of this publication may be copied without the express, written consent of [facility]. Please clarify and document your clinical opinion in the progress notes and discharge summary. Terms such as "probable", "suspected", "likely", "questionable", "possible", or "still to be ruled out" are acceptable. IF IN AGREEMENT, YOU MUST DOCUMENT ABOVE DIAGNOSTIC STATEMENT IN DAILY PROGRESS NOTES AND DISCHARGE SUMMARY. This document is not part of the patient's record. Thank You, Dominic Peres RN [phone]
--- NOTE | 2018-03-27 15:30 | Progress Note ---
Subjective Date of Service: March 27, 2018. Subjective Pt evaluation today including: conversation w/ patient, physical exam, lab review, review of studies, review of inpatient medication list Saw/examined the patient in room 229 He's having difficulty with breathing, clearly in respiratory distress, using accessory muscles to breath +L hip pain Problem List Medical Problems: (1) COPD with acute exacerbation Status: Acute (2) Dehydration Status: Acute (3) Hypoxia Status: Acute (4) Left lower lobe pneumonia Status: Acute (5) Malnutrition Status: Acute (6) Swelling of left extremity Status: Acute (7) Swelling of right extremity Status: Acute Review of Systems Constitutional: No fever, No chills Respiratory: + cough, + sputum, + wheezing, + shortness of breath, + dyspnea on exertion, + dyspnea at rest, No hemoptysis Cardiac: No chest pain Musculoskeletal: + joint pain, + muscle pain, + swelling Heme: No abnormal bleeding/bruising Medications Current Inpatient Medications Medications (Trade) Dose Ordered Sig/Denisse Route Start Time Stop Time Status Last Admin Dose Admin Ioversol (Optiray 320) 100 ml UD PRN IV 03/25/18 19:00 03/29/18 18:59 Metoprolol Succinate (Toprol Xl Tab) 25 mg DAILY PO 03/26/18 09:00 04/25/18 08:59 03/27/18 07:39 25 MG Sertraline HCl (Zoloft Tab) 100 mg HS PO 03/26/18 21:00 04/25/18 20:59 03/26/18 20:38 100 MG Miscellaneous Information (Order Awaiting Action) 1 ea QS N/A 03/26/18 00:00 04/25/18 00:00 Lactobacillus Acidophilus (Floranex Tab) 1 tab DAILY PO 03/26/18 09:00 04/25/18 08:59 03/27/18 07:39 1 TAB Acetaminophen (Tylenol Tab) 650 mg Q4H PRN PO 03/25/18 22:45 04/24/18 22:44 Nitroglycerin (Nitrostat Tab) 0.4 mg UD PRN SL 03/25/18 22:45 04/24/18 22:44 Hydromorphone HCl (Dilaudid Inj) 0.5 mg Q3H PRN IV 03/25/18 22:45 04/08/18 22:44 Tramadol HCl (Ultram Tab) 25 mg Q6H PRN PO 03/25/18 22:45 04/24/18 22:44 03/27/18 09:51 25 MG Prochlorperazine Edisylate 5 mg/ Syringe 5 ml @ 5 mls/min Q6H PRN IV 03/25/18 22:45 04/24/18 22:44 Levofloxacin (Consult) 1 ea DAILY PRN N/A 03/26/18 09:00 04/25/18 08:59 Prednisone (PredniSONE TAB) 40 mg DAILY PO 03/26/18 09:00 03/31/18 08:59 03/27/18 07:39 40 MG Ipratropium [place] (Atrovent 0.02% 0.5MG/2.5ML Neb) 0.5 mg Q6R INH 03/26/18 03:00 04/25/18 02:59 03/27/18 14:18 0.5 MG Levalbuterol (Xopenex 1.25MG/ 0.5ML Neb) 1.25 mg Q6R INH 03/26/18 03:00 04/25/18 02:59 03/27/18 14:18 1.25 MG Ipratropium [place] (Atrovent 0.02% 0.5MG/2.5ML Neb) 0.5 mg Q4H PRN INH 03/25/18 23:30 04/24/18 23:29 Levalbuterol (Xopenex 1.25MG/ 0.5ML Neb) 1.25 mg Q4H PRN INH 03/25/18 23:30 04/24/18 23:29 Levofloxacin (Levaquin Tab) 750 mg DAILY@2200 PO 03/26/18 22:00 03/31/18 22:01 03/26/18 20:38 750 MG Objective Vital Signs Date Time Temp Pulse Resp B/P (MAP) Pulse Ox O2 Delivery O2 Flow Rate FiO2 03/27/18 12:00 36.6 80 19 103/66 (78) 92 03/27/18 12:00 Nasal Cannula 3.0 03/27/18 08:00 Nasal Cannula 3.0 03/27/18 07:07 73 16 100 Nasal Cannula 3.0 03/27/18 06:31 36.4 76 19 109/65 (80) 100 Nasal Cannula 3.0 03/27/18 04:00 Nasal Cannula 3.0 03/27/18 03:49 36.4 77 18 112/75 (87) 100 Nasal Cannula 3.0 03/27/18 02:14 73 16 93 Nasal Cannula 3.0 03/26/18 23:59 Nasal Cannula 3.0 03/26/18 23:19 36.3 76 19 103/67 (79) 100 Nasal Cannula 3.0 03/26/18 20:24 92 Nasal Cannula 3.0 03/26/18 19:42 36.5 82 20 124/75 (91) 97 Nasal Cannula 3.0 03/26/18 19:36 87 18 96 Nasal Cannula 3.0 03/26/18 16:20 92 Nasal Cannula 3.0 03/26/18 15:35 36.3 79 20 119/75 (90) 100 Nasal Cannula 3.0 03/26/18 14:14 81 18 96 Nasal Cannula 3.0 Physical Exam General Appearance: + moderate distress, + severe distress Respiratory/Chest: + respiratory distress, + decreased breath sounds, + accessory muscle use, + wheezing Cardiovascular: regular rate, rhythm, no edema, no murmur Extremities: + pertinent finding (Hematoma, swelling, bruising noted at the L hip/thigh - ) Neurologic/Psychiatric: no motor/sensory deficits, alert, normal mood/affect Laboratory Results Last 24 Hours Test 03/26/18 18:28 03/27/18 05:17 Hemoglobin 8.8 g/dL 8.5 g/dL Hematocrit 27.7 % 27.6 % White Blood Count 14.27 K/uL Red Blood Count 3.16 M/uL Mean Corpuscular Volume 87.3 fL Mean Corpuscular Hemoglobin 26.9 pg Mean Corpuscular Hemoglobin Concent 30.8 g/dl Platelet Count 197 K/uL Mean Platelet Volume 8.2 fL Neutrophils (%) (Auto) 84.9 % Lymphocytes (%) (Auto) 2.9 % Monocytes (%) (Auto) 11.1 % Eosinophils (%) (Auto) 0.0 % Basophils (%) (Auto) 0.1 % Neutrophils # (Auto) 12.10 K/uL Lymphocytes # (Auto) 0.42 K/uL Monocytes # (Auto) 1.59 K/uL Eosinophils # (Auto) 0.00 K/uL Basophils # (Auto) 0.02 K/uL RDW Standard Deviation 51.2 fL RDW Coefficient of Variation 16.5 % Immature Granulocyte % (Auto) 1.0 % Immature Granulocyte # (Auto) 0.14 K/uL Nucleated RBC Absolute Count (auto) 0.12 K/uL Nucleated Red Blood Cells % 0.9 % Polychromasia 1+ Prothrombin Time 11.8 SECONDS Prothromb Time International Ratio 1.1 Sodium Level 143 mmol/L Potassium Level 4.3 mmol/L Chloride Level 108 mmol/L Carbon Dioxide Level 33 mmol/L Anion Gap 2.0 mmol/L Blood Urea Nitrogen 27 mg/dl Creatinine 1.00 mg/dl Est Creatinine Clear Calc Drug Dose 92.8 ml/min Estimated GFR () 92.4 Estimated GFR (Non- 79.7 BUN/Creatinine Ratio 26.7 Random Glucose 102 mg/dl Calcium Level 7.3 mg/dl Assessment and Plan This is a 63 year old male with a past medical history of severe COPD, chronic respiratory failure on 3L of O2 continuously, paroxysmal atrial fibrillation on long-term anticoagulation, chronic lymphedema - presents with worsening shortness of breath, multiple falls, hematoma, anemia Acute on Chronic Hypoxic Respiratory Failure Acute COPD Exacerbation secondary to LLL Pneumonia - Chest CT - LLL Pneumonia - +wheezing, +shortness of breath - chronically on 3L of O2 - worsening shortness of breath; +accessory muscles, +respiratory distress - will use prednisone 40mg x5 days - will use Levaquin for pneumonia and COPD exacerbation - nebulizers as needed Multiple Falls/Ambulatory Dysfunction leading to Hematoma and Anemia secondary to Coumadin induced Coagulopathy - required 4 units of pRBCs - two units of FFP - INR is reversed, now 1.0; was initially supratherapeutic - has been falling, unsure why; possibly related to UTI/PNA; infectious - will hold Coumadin for 1-2 days - monitor hematoma, monitor Hgb - will need PT/OT prior to discharge, will likely need placement Paroxysmal A. Fib - continue b-geoff - hold Coumadin - currently NSR Chronic Lymphedema - bilateral leg swelling - doppler negative for DVT b/l - hold Lasix, continue prior to discharge DVT ppx - SCDs FULL CODE
[2018-03-27] MEDS: SERTRALINE HCL 100 MG TAB PO SCH (21:21)
[2018-03-27] MEDS: LEVOFLOXACIN 750 MG TAB PO SCH (21:21)
[2018-03-28] VITALS (11 sets, daily range): BP systolic 118–143; BP diastolic 73–86; PULSE 61–89; TEMP 36.5–36.9; O2SAT 85–98
[2018-03-28] MEDS: LEVALBUTEROL 1.25MG/0.5ML NEB INH SCH ×5 (01:39→22:18)
[2018-03-28] MEDS: IPRATROPIUM BROMIDE NEB SOLN 0.02% 2.5 ML VIAL INH SCH ×5 (01:39→22:18)
[2018-03-28] MEDS: TRAMADOL HCL 50 MG TAB PO PRN (01:44)
[2018-03-28 06:15] LABS: BASO % 0.1 %; BASO ABS # 0.01 K/uL (0-0.2); EOS % 0.2 %; EOS ABS # 0.03 K/uL (0-0.5); HEMATOCRIT 29.2 % (42-52); HEMOGLOBIN 8.9 g/dL (14.0-18.0); IG# 0.11 K/uL (0.00-0.02); LYMPH % 6.6 %; LYMPH ABS # 0.86 K/uL (1.2-3.4); MEAN CELL VOLUME 88.8 fL (80-100); MEAN CORPUSCULAR HEMOGLOBIN 27.1 pg (25-34); MEAN CORPUSCULAR HGB CONC 30.5 g/dl (32-36); MEAN PLATELET VOLUME 8.6 fL (7.4-10.4); MONO % 10.6 %; MONO ABS # 1.37 K/uL (0.11-0.59); NEUT % 81.7 %; NEUT ABS # 10.58 K/uL (1.4-6.5); NUCLEATED RED BLOOD CELL ABS 0.06 K/uL (0-0); PLATELET COUNT 204 K/uL (130-400); RED CELL DISTRIBUTION WIDTH CV 16.9 % (11.5-14.5); RED CELL DISTRIBUTION WIDTH SD 52.9 fL (36.4-46.3); WHITE BLOOD COUNT 12.96 K/uL (4.8-10.8)
[2018-03-28 06:29] LABS: INR 1.2 (0.9-1.1)
[2018-03-28 06:46] LABS: CALCIUM 7.7 mg/dl (8.5-10.1); CREATININE 0.86 mg/dl (0.60-1.40); POTASSIUM 4.1 mmol/L (3.5-5.1)
[2018-03-28] MEDS: LACTOBACILLUS ACIDOPHILUS (FLORANEX) TAB PO SCH (07:48)
[2018-03-28] MEDS: METOPROLOL SUCC 25MG EXT REL TAB PO SCH (07:48)
--- NOTE | 2018-03-28 09:23 | Progress Note ---
Subjective Date of Service: March 28, 2018. Subjective Pt evaluation today including: conversation w/ patient, physical exam, lab review, review of studies, review of inpatient medication list Saw/examined the patient in room 229 in respiratory distress with pursed lipped breathing States he does not feel better, has no appetite Denies chest pain +pain at left hip Problem List Medical Problems: (1) COPD with acute exacerbation Status: Acute (2) Dehydration Status: Acute (3) Hypoxia Status: Acute (4) Left lower lobe pneumonia Status: Acute (5) Malnutrition Status: Acute (6) Swelling of left extremity Status: Acute (7) Swelling of right extremity Status: Acute Review of Systems Constitutional: No fever, No chills Respiratory: + wheezing, + shortness of breath, + dyspnea on exertion, + dyspnea at rest, No cough, No sputum, No hemoptysis Cardiac: + edema, No chest pain, No palpitations Abdomen: No pain, No nausea, No vomiting, No diarrhea, No constipation, No GI bleeding Musculoskeletal: + joint pain (L hip) Medications Current Inpatient Medications Medications (Trade) Dose Ordered Sig/Denisse Route Start Time Stop Time Status Last Admin Dose Admin Ioversol (Optiray 320) 100 ml UD PRN IV 03/25/18 19:00 03/29/18 18:59 Metoprolol Succinate (Toprol Xl Tab) 25 mg DAILY PO 03/26/18 09:00 04/25/18 08:59 03/28/18 07:48 25 MG Sertraline HCl (Zoloft Tab) 100 mg HS PO 03/26/18 21:00 04/25/18 20:59 03/27/18 21:21 100 MG Miscellaneous Information (Order Awaiting Action) 1 ea QS N/A 03/26/18 00:00 04/25/18 00:00 Lactobacillus Acidophilus (Floranex Tab) 1 tab DAILY PO 03/26/18 09:00 04/25/18 08:59 03/28/18 07:48 1 TAB Acetaminophen (Tylenol Tab) 650 mg Q4H PRN PO 03/25/18 22:45 04/24/18 22:44 Nitroglycerin (Nitrostat Tab) 0.4 mg UD PRN SL 03/25/18 22:45 04/24/18 22:44 Hydromorphone HCl (Dilaudid Inj) 0.5 mg Q3H PRN IV 03/25/18 22:45 04/08/18 22:44 03/28/18 03:45 0.5 MG Tramadol HCl (Ultram Tab) 25 mg Q6H PRN PO 03/25/18 22:45 04/24/18 22:44 03/28/18 01:44 25 MG Prochlorperazine Edisylate 5 mg/ Syringe 5 ml @ 5 mls/min Q6H PRN IV 03/25/18 22:45 04/24/18 22:44 Levofloxacin (Consult) 1 ea DAILY PRN N/A 03/26/18 09:00 04/25/18 08:59 Ipratropium [place] (Atrovent 0.02% 0.5MG/2.5ML Neb) 0.5 mg Q6R INH 03/26/18 03:00 04/25/18 02:59 03/28/18 07:16 0.5 MG Levalbuterol (Xopenex 1.25MG/ 0.5ML Neb) 1.25 mg Q6R INH 03/26/18 03:00 04/25/18 02:59 03/28/18 07:16 1.25 MG Ipratropium [place] (Atrovent 0.02% 0.5MG/2.5ML Neb) 0.5 mg Q4H PRN INH 03/25/18 23:30 04/24/18 23:29 Levalbuterol (Xopenex 1.25MG/ 0.5ML Neb) 1.25 mg Q4H PRN INH 03/25/18 23:30 04/24/18 23:29 Levofloxacin (Levaquin Tab) 750 mg DAILY@2200 PO 03/26/18 22:00 03/31/18 22:01 03/27/18 21:21 750 MG Methylprednisolone Sodium Succinate 40 mg/Syringe 0.64 ml @ 1.5 mls/min Q8 IV 03/28/18 14:00 04/27/18 13:59 UNV Objective Vital Signs Date Time Temp Pulse Resp B/P (MAP) Pulse Ox O2 Delivery O2 Flow Rate FiO2 03/28/18 08:00 Nasal Cannula 3.0 03/28/18 07:16 73 16 85 Nasal Cannula 3.0 03/28/18 06:44 36.6 83 19 118/81 (93) 96 Nasal Cannula 3.0 03/28/18 04:02 Nasal Cannula 3.0 03/28/18 03:14 36.5 82 17 129/73 (91) 95 Nasal Cannula 3.0 03/28/18 01:39 87 16 92 Nasal Cannula 3.0 03/28/18 00:01 Nasal Cannula 3.0 03/27/18 23:41 36.9 81 19 120/79 (93) 96 Nasal Cannula 3.0 03/27/18 20:00 Nasal Cannula 3.0 03/27/18 19:05 36.6 105 19 109/75 (86) 100 Nasal Cannula 03/27/18 18:54 80 16 99 Nasal Cannula 3.0 03/27/18 16:00 Nasal Cannula 3.0 03/27/18 15:24 36.6 75 20 120/75 (90) 99 Nasal Cannula 2.0 03/27/18 14:18 85 16 96 Nasal Cannula 3.0 03/27/18 12:00 36.6 80 19 103/66 (78) 92 03/27/18 12:00 Nasal Cannula 3.0 Physical Exam General Appearance: + severe distress Respiratory/Chest: + respiratory distress, + decreased breath sounds, + accessory muscle use, + wheezing Cardiovascular: regular rate, rhythm, no murmur Extremities: + pedal edema, + swelling (lymphedematous changes), + pertinent finding Neurologic/Psychiatric: no motor/sensory deficits, alert, normal mood/affect Laboratory Results Last 24 Hours Test 03/28/18 05:18 White Blood Count 12.96 K/uL Red Blood Count 3.29 M/uL Hemoglobin 8.9 g/dL Hematocrit 29.2 % Mean Corpuscular Volume 88.8 fL Mean Corpuscular Hemoglobin 27.1 pg Mean Corpuscular Hemoglobin Concent 30.5 g/dl Platelet Count 204 K/uL Mean Platelet Volume 8.6 fL Neutrophils (%) (Auto) 81.7 % Lymphocytes (%) (Auto) 6.6 % Monocytes (%) (Auto) 10.6 % Eosinophils (%) (Auto) 0.2 % Basophils (%) (Auto) 0.1 % Neutrophils # (Auto) 10.58 K/uL Lymphocytes # (Auto) 0.86 K/uL Monocytes # (Auto) 1.37 K/uL Eosinophils # (Auto) 0.03 K/uL Basophils # (Auto) 0.01 K/uL RDW Standard Deviation 52.9 fL RDW Coefficient of Variation 16.9 % Immature Granulocyte % (Auto) 0.8 % Immature Granulocyte # (Auto) 0.11 K/uL Nucleated RBC Absolute Count (auto) 0.06 K/uL Nucleated Red Blood Cells % 0.5 % Polychromasia 1+ Prothrombin Time 12.2 SECONDS Prothromb Time International Ratio 1.2 Sodium Level 143 mmol/L Potassium Level 4.1 mmol/L Chloride Level 107 mmol/L Carbon Dioxide Level 33 mmol/L Anion Gap 3.0 mmol/L Blood Urea Nitrogen 22 mg/dl Creatinine 0.86 mg/dl Est Creatinine Clear Calc Drug Dose 107.9 ml/min Estimated GFR () 107.0 Estimated GFR (Non- 92.3 BUN/Creatinine Ratio 26.0 Random Glucose 98 mg/dl Calcium Level 7.7 mg/dl Assessment and Plan This is a 63 year old male with a past medical history of severe COPD, chronic respiratory failure on 3L of O2 continuously, paroxysmal atrial fibrillation on long-term anticoagulation, chronic lymphedema - presents with worsening shortness of breath, multiple falls, hematoma, anemia Acute on Chronic Hypoxic Respiratory Failure Acute COPD Exacerbation secondary to LLL Pneumonia 03/28 - patient with worsening respiratory condition; +accessory muscle use, breathing with pursed lips, +respiratory distress - will change oral prednisone to IV solu-medrol - continue nebulizers: Xopenex/Ipratropium - continue Levaquin for pneumonia - baseline O2 of 3L; only saturating well at rest 03/27 - Chest CT - LLL Pneumonia - +wheezing, +shortness of breath - chronically on 3L of O2 - worsening shortness of breath; +accessory muscles, +respiratory distress - will use prednisone 40mg x5 days - will use Levaquin for pneumonia and COPD exacerbation - nebulizers as needed Multiple Falls/Ambulatory Dysfunction leading to Hematoma and Anemia secondary to Coumadin induced Coagulopathy 03/28 - s/p 4 units of pRBCs - Hgb stable - continue to hold Coumadin for now - ice pack to hematoma 03/27 - required 4 units of pRBCs - two units of FFP - INR is reversed, now 1.0; was initially supratherapeutic - has been falling, unsure why; possibly related to UTI/PNA; infectious - will hold Coumadin for 1-2 days - monitor hematoma, monitor Hgb - will need PT/OT prior to discharge, will likely need placement Paroxysmal A. Fib - continue b-geoff - hold Coumadin - currently NSR Chronic Lymphedema - bilateral leg swelling - doppler negative for DVT b/l - hold Lasix, continue prior to discharge UTI - proteus on culture - continue Levaquin for pneumonia, which should treat the UTI as well DVT ppx - SCDs FULL CODE
[2018-03-28] MEDS: IPRATROPIUM BROMIDE NEB SOLN 0.02% 2.5 ML VIAL INH PRN (12:37)
[2018-03-28] MEDS: LEVALBUTEROL 1.25MG/0.5ML NEB INH PRN (12:37)
[2018-03-28] MEDS: METHYLPREDNISOLONE IV 40 MG in SYRINGE 0 ML IV SCH ×2 (13:56→21:25)
--- NOTE | 2018-03-28 15:57 | Pulmonary Consultation ---
History General Date of Service: March 28, 2018. Stated Complaint: Respiratory Failure, Acute HPI The patient is a 63 year old male who presents to [facility] with complaints of Respiratory Failure, Acute. The patient's primary care provider is Uriel Jiménez MD. 63-year-old gentleman admitted 03/25/2018 with progressive shortness of breath found have a large hematoma, left lower lobe lingular infiltrate as well as acute on chronic hypoxemia. Patient notes he has been feeling ill over the last 2-3 weeks and has had multiple unintentional falls with no loss of consciousness. On the fall prior to his admission he fell back into his food [place] after becoming weak we once again no loss of consciousness also denies: Fever, chills, classic cardiac chest pain. He was not going to come to the hospital but when his sister arrived she for for symmetry coming for further evaluation. Other than notable weakness in intermittent episodes of following the patient denies: Fever, chills, hemoptysis, unintentional weight loss, pleurisy, B type symptoms, classic cardiac chest pain. Patient notes he continues to have dyspnea even at rest which is notably different than his normal responsive is to aggressive diuresis and antibiotics. WBC: 21K---13K H/H: 05/09---08/18 AB.38/47/71/27 on 4Lnc Serum CO2: 33 reatinine: 1.48---0.86 Pro-BNP: 3588 Albumin: 2.3 I/Os: +2.8L EKG: Normal sinus rhythm rate of 74, no acute signs of ischemia Venous Doppler bilateral lower extremity: No signs of DVT CT chest 03/25/2018: Diffuse infiltrative process in the lingula as well as left lower lobe not seen on previous imaging from CT chest 06/03/2016, 4 mm nodule right middle lobe, CXR 01/19/2018: Diffuse infiltrative process left middle left lower lobe CXR 06/09/2016: Left middle lobe infiltrate approximately 21 mm with costophrenic blunting of the left shona thorax CT angiogram 06/03/2016: Left upper lobe posterior subsegment infiltrative process versus mass versus scar atelectasis CT chest 02/26/2016: Left upper lobe 23 x 13 mm infiltrate Echocardiogram 11/08/2017: Left ventricle grossly within normal limits with an EF of 55-60%, right ventricle grossly within normal limits, atria within normal limits, mitral valve within normal limits, tricuspid valve within normal limits, aortic valve within normal limits, pulmonic valve within normal limits, great vessels within normal limits, no pericardial effusion, normal inferior vena cava with collapsibility, possible grade 1 diastolic dysfunction Historian: patient, EMS Review of Systems Constitutional: reports: weakness Eyes: reports: no symptoms ENT: reports: no symptoms Cardiovascular: reports: as stated in HPI Respiratory: reports: as stated in HPI Gastrointestinal: reports: no symptoms Genitourinary - Male: reports: no symptoms Musculoskeletal: reports: as stated in HPI Integumentary: reports: as stated in HPI Neurologic: reports: no symptoms Psychiatric: reports: no symptoms Endocrine: no symptoms Hematologic / Lymphatic: no symptoms Allergic / Immunologic: no symptoms Past Medical History Past Medical History: Please refer to HPI Past Surgical History: Please refer to HPI Family History FH: cancer Lung disease Stroke Please refer to HPI Social History Please refer to HPI Hx Tobacco Use In Past Year?: No Smoking Status: Former Smoker Marital status: Housing status: lives alone Occupational Status: disabled Immunizations History of Influenza Vaccine: Yes Influenza Vaccine Date: Sep 14, 2017 History of Tetanus Vaccine?: Yes Tetanus Immunization Date: Feb 20, 2010 History of Pneumococcal: Yes Pneumococcal Date: April 01, 2016 History of Hepatitis B Vaccine: No History of MDRO History of MDRO: No Allergies Coded Allergies: Piperacillin (Verified Allergy, Mild, RASH, 01/02/18) rash 01/01/18 most likely due to piperacillin / tazobactam Current Medications Reported Home Medications Medications Dose Route/Sig Max Daily Dose Days Date Category Dose Instructions Jantoven (Warfarin Sodium) 3 Mg Tab 3 Mg PO DAILY 03/25/18 Reported TAKE WITH 0.5MG TAB, TOTAL DOSE 3.5MG DAILY Jantoven (Warfarin Sodium) 1 Mg Tab 0.5 Mg PO DAILY 03/25/18 Reported TAKE WITH 3MG TAB, TOTAL DOSE 3.5MG DAILY Diltiazem HCl 30 Mg Tab 30 Mg PO TID 03/25/18 Reported Metoprolol Succinate ER (Metoprolol Succinate) 25 Mg Tabcr 25 Mg PO DAILY 03/25/18 Reported Azithromycin 250 Mg Tab 250 Mg PO DIRECTED 12/17/17 Reported *COPD RESCUE KIT* Prednisone 20 Mg Tab 40 Mg PO DIRECTED PRN 12/17/17 Reported *COPD RESCUE KIT* Nitrostat (Nitroglycerin) 0.4 Mg Tab 0.4 Mg UT PRN 12/17/[address] UNDER TONGUE EVERY 5 MINUTES NEEDED Zoloft (Sertraline HCl) 100 Mg Tab 100 Mg PO HS 12/17/17 Reported Lasix (Furosemide) 40 Mg Tab 40 Mg PO DAILY 11/15/17 Reported Potassium Chloride Er (Potassium Chloride) 10 Meq Tab 10 Meq PO DAILY 11/15/17 Reported Probiotic (Probiotic Product) 1 Tab Tab 1 Tab PO DAILY 11/15/17 Reported Duoneb (Ipratropium-Albuterol) 3 Ml Nebu 1 Treatment INH TID PRN 05/18/17 Reported Combivent Respimat (Ipratropium-Albuterol) 1 Aer Aer 1 Puff INH QID PRN 05/18/17 Reported Lorazepam 0.5 Mg Tab 0.5 Mg PO TID PRN 02/26/16 Reported Desloratadine 5 Mg Tab 5 Mg PO QAM 02/26/16 Reported Anoro Ellipta 62.5-25 Mcg/INH (Umeclidinium-Vilanterol) 1 Aer Aer 1 Puff INH QAM 02/26/16 Reported Oxygen Gas 2 Liters NA CONTINOUS 09/16/15 Reported Physical Physical Exam Vital Signs: Date Time Temp Pulse Resp B/P (MAP) Pulse Ox O2 Delivery O2 Flow Rate FiO2 03/28/18 15:19 36.7 79 22 143/85 (104) 94 Nasal Cannula 3.0 03/28/18 12:37 79 20 94 Nasal Cannula 3.0 03/28/18 12:00 Nasal Cannula 3.0 03/28/18 11:37 36.5 61 16 133/86 (102) 96 Nasal Cannula 3.0 03/28/18 08:00 Nasal Cannula 3.0 03/28/18 07:16 73 16 85 Nasal Cannula 3.0 03/28/18 06:44 36.6 83 19 118/81 (93) 96 Nasal Cannula 3.0 03/28/18 04:02 Nasal Cannula 3.0 03/28/18 03:14 36.5 82 17 129/73 (91) 95 Nasal Cannula 3.0 03/28/18 01:39 87 16 92 Nasal Cannula 3.0 03/28/18 00:01 Nasal Cannula 3.0 03/27/18 23:41 36.9 81 19 120/79 (93) 96 Nasal Cannula 3.0 03/27/18 20:00 Nasal Cannula 3.0 03/27/18 19:05 36.6 105 19 109/75 (86) 100 Nasal Cannula 03/27/18 18:54 80 16 99 Nasal Cannula 3.0 03/27/18 16:00 Nasal Cannula 3.0 General Appearance: other (In mild respiratory distress using accessory muscles during our conversation) Head: NORMOCEPHALIC, ATRAUMATIC Eyes: PERRLA, NO DISCHARGE, EOMI, SCLERAE NORMAL ENT: NORMAL EAR EXAM, NORMAL NASAL EXAM, NORMAL MOUTH EXAM, NORMAL THROAT EXAM , NORMAL DENTAL EXAM Neck: NORMAL RANGE OF MOTION, NO TENDERNESS, TRACHEA MIDLINE, NO STRIDOR Respiratory: other (Decreased breath sounds globally with notable rhonchi at the anterior mid axillary line along the left hemithorax) Cardiovasular: REGULAR RATE/RHYTHM, NORMAL S1S2, NO M/G/R, NO MURMUR Abdomen: NON TENDER, NORMAL BOWEL SOUNDS, NO REBOUND, NO MASSES, NO GUARDING Genitourinary - Male: EXTERNAL GENITALIA NORMAL Back: NORMAL INSPECTION, NO MIDLINE TENDERNESS, other (Ecchymosis appreciated at the level of the superior sacroiliac joints) Upper Extremities: other (Mild ecchymosis appreciated in the upper extremities bilaterally) Lower Extremities: other (Large ecchymoses appreciated over the left thigh medial inferior and lateral as well as extension into the buttocks region) Edema: Bilateral LE (2+) Pulses: carotid (R) (1+), carotid (L) (1+), dorsalis pedis (R) (1+), dorsalis pedis (L) (1+) Neuro: ALERT, ORIENTED x 3 Reflexes: biceps (R) (2+), bicpes (L) (2+) Babinski Testing: right (downgoing), left (downgoing) Psychiatric: NORMAL AFFECT, NO SUICIDAL IDEATION Diagnostics Labs Results Past 24 Hours Test 03/28/18 05:18 Range/Units White Blood Count 12.96 4.8-10.8 K/uL Red Blood Count 3.29 4.7-6.1 M/uL Hemoglobin 8.9 14.0-18.0 g/dL Hematocrit 29.2 42-52 % Mean Corpuscular Volume 88.8 80-100 fL Mean Corpuscular Hemoglobin 27.1 25-34 pg Mean Corpuscular Hemoglobin Concent 30.5 32-36 g/dl Platelet Count 204 130-400 K/uL Mean Platelet Volume 8.6 7.4-10.4 fL Neutrophils (%) (Auto) 81.7 % Lymphocytes (%) (Auto) 6.6 % Monocytes (%) (Auto) 10.6 % Eosinophils (%) (Auto) 0.2 % Basophils (%) (Auto) 0.1 % Neutrophils # (Auto) 10.58 1.4-6.5 K/uL Lymphocytes # (Auto) 0.86 1.2-3.4 K/uL Monocytes # (Auto) 1.37 0.11-0.59 K/uL Eosinophils # (Auto) 0.03 0-0.5 K/uL Basophils # (Auto) 0.01 0-0.2 K/uL RDW Standard Deviation 52.9 36.4-46.3 fL RDW Coefficient of Variation 16.9 11.5-14.5 % Immature Granulocyte % (Auto) 0.8 % Immature Granulocyte # (Auto) 0.11 0.00-0.02 K/uL Nucleated RBC Absolute Count (auto) 0.06 0-0 K/uL Nucleated Red Blood Cells % 0.5 % Polychromasia 1+ Prothrombin Time 12.2 9.0-12.0 SECONDS Prothromb Time International Ratio 1.2 0.9-1.1 Sodium Level 143 136-145 mmol/L Potassium Level 4.1 3.5-5.1 mmol/L Chloride Level 107 98-107 mmol/L Carbon Dioxide Level 33 21-32 mmol/L Anion Gap 3.0 3-11 mmol/L Blood Urea Nitrogen 22 7-18 mg/dl Creatinine 0.86 0.60-1.40 mg/dl Est Creatinine Clear Calc Drug Dose 107.9 ml/min Estimated GFR () 107.0 Estimated GFR (Non- 92.3 BUN/Creatinine Ratio 26.0 10-20 Random Glucose 98 70-99 mg/dl Calcium Level 7.7 8.5-10.1 mg/dl Diagnostic Radiology Please refer to HPI EKG Please refer to HPI Impression Assessment and Plan 63-year-old gentleman admitted with acute on chronic respiratory insufficiency noted to have large ecchymosis status post trauma/fall as well as diffuse infiltrative pattern in the lingula left lower lobe: 1. Pneumonia: I will order a video swallow evaluation at this time to rule out signs of chronic aspiration. The patient's white blood cell count and vital signs have remained stable on current antibiotic therapy with Levaquin even though is not covering for anaerobes will continue at this time. If any signs of aspiration is occurring will initiate anaerobic coverage at that time. 2. Abnormal CT scan: Previous CT images all the way back to 02/25/2026 do 8 demonstrated a left upper lobe 23 x 13 mm infiltrate. Previous infiltrative pattern in the right upper lobe posterior subsegment does appear to be stable but there is diffuse new infiltrate in the lingula left lower lobe which could be secondary to pneumonia, aspiration or even pulmonary hemorrhage after the patient's falls. This will require for 6 week follow-up to determine resolution 3. COPD: Per the records the patient has very severe COPD with an FEV1 possibly as low as 15%. I will continue him on his current IV steroids as well as nebulizers at this time. I will also initiate dornase as well as vest physiotherapy if the patient can physically tolerate the vibrations. 4. Hypoxia: Patient's hypoxia most likely combination of new infiltrative pattern, underlying COPD as well as chronic volume overload status. 5. Anticoagulation: Patient with history of atrial fibrillation on Coumadin came in with supratherapeutic INR current INR subtherapeutic but patient with large ecchymoses. Patient is currently being monitored off anticoagulation.
[2018-03-28] MEDS: CEPHALEXIN MONOHYDRATE 500 MG CAP PO SCH ×2 (16:44→21:25)
[2018-03-28] MEDS: SERTRALINE HCL 100 MG TAB PO SCH (21:25)
[2018-03-28] MEDS: LEVOFLOXACIN 750 MG TAB PO SCH (21:26)
[2018-03-29] VITALS (11 sets, daily range): BP systolic 109–148; BP diastolic 66–91; PULSE 80–88; TEMP 36.7–36.9; O2SAT 94–100
[2018-03-29] MEDS: IPRATROPIUM BROMIDE NEB SOLN 0.02% 2.5 ML VIAL INH SCH ×2 (01:56→07:00)
[2018-03-29] MEDS: LEVALBUTEROL 1.25MG/0.5ML NEB INH SCH ×2 (01:56→07:00)
[2018-03-29] MEDS: METHYLPREDNISOLONE IV 40 MG in SYRINGE 0 ML IV SCH ×3 (06:00→21:46)
[2018-03-29 06:08] LABS: BASO % 0.1 %; BASO ABS # 0.01 K/uL (0-0.2); HEMATOCRIT 27.8 % (42-52); HEMOGLOBIN 8.6 g/dL (14.0-18.0); IG# 0.11 K/uL (0.00-0.02); LYMPH % 2.9 %; LYMPH ABS # 0.35 K/uL (1.2-3.4); MEAN CELL VOLUME 89.1 fL (80-100); MEAN CORPUSCULAR HEMOGLOBIN 27.6 pg (25-34); MEAN CORPUSCULAR HGB CONC 30.9 g/dl (32-36); MEAN PLATELET VOLUME 8.7 fL (7.4-10.4); MONO % 7.1 %; MONO ABS # 0.87 K/uL (0.11-0.59); NEUT ABS # 10.88 K/uL (1.4-6.5); NUCLEATED RED BLOOD CELL ABS 0.04 K/uL (0-0); PLATELET COUNT 197 K/uL (130-400); RED CELL DISTRIBUTION WIDTH CV 16.8 % (11.5-14.5); RED CELL DISTRIBUTION WIDTH SD 52.5 fL (36.4-46.3); WHITE BLOOD COUNT 12.22 K/uL (4.8-10.8)
[2018-03-29 06:15] LABS: INR 1.2 (0.9-1.1)
[2018-03-29 06:42] LABS: CALCIUM 7.7 mg/dl (8.5-10.1); CREATININE 0.78 mg/dl (0.60-1.40); POTASSIUM 4.5 mmol/L (3.5-5.1)
[2018-03-29] MEDS: LACTOBACILLUS ACIDOPHILUS (FLORANEX) TAB PO SCH (07:49)
[2018-03-29] MEDS: METOPROLOL SUCC 25MG EXT REL TAB PO SCH (07:49)
[2018-03-29] MEDS: CEPHALEXIN MONOHYDRATE 500 MG CAP PO SCH ×3 (07:50→21:14)
--- NOTE | 2018-03-29 11:42 | Progress Note ---
Subjective Date of Service: March 29, 2018. Subjective Pt evaluation today including: conversation w/ patient, physical exam, lab review, review of studies, review of inpatient medication list Saw/examined the patient in room 229 He's resting comfortably +shortness of breath, +accessory muscle use Feeling slightly better and saturating well on 3L of O2 Problem List Medical Problems: (1) COPD with acute exacerbation Status: Acute (2) Dehydration Status: Acute (3) Hypoxia Status: Acute (4) Left lower lobe pneumonia Status: Acute (5) Malnutrition Status: Acute (6) Swelling of left extremity Status: Acute (7) Swelling of right extremity Status: Acute Review of Systems Constitutional: No fever, No chills Respiratory: + wheezing, + shortness of breath, + dyspnea on exertion, + dyspnea at rest, No cough, No sputum, No hemoptysis Cardiac: + edema, No chest pain, No palpitations Medications Current Inpatient Medications Medications (Trade) Dose Ordered Sig/Denisse Route Start Time Stop Time Status Last Admin Dose Admin Ioversol (Optiray 320) 100 ml UD PRN IV 03/25/18 19:00 03/29/18 18:59 Metoprolol Succinate (Toprol Xl Tab) 25 mg DAILY PO 03/26/18 09:00 04/25/18 08:59 03/29/18 07:49 25 MG Sertraline HCl (Zoloft Tab) 100 mg HS PO 03/26/18 21:00 04/25/18 20:59 03/28/18 21:25 100 MG Miscellaneous Information (Order Awaiting Action) 1 ea QS N/A 03/26/18 00:00 04/25/18 00:00 Lactobacillus Acidophilus (Floranex Tab) 1 tab DAILY PO 03/26/18 09:00 04/25/18 08:59 03/29/18 07:49 1 TAB Acetaminophen (Tylenol Tab) 650 mg Q4H PRN PO 03/25/18 22:45 04/24/18 22:44 Nitroglycerin (Nitrostat Tab) 0.4 mg UD PRN SL 03/25/18 22:45 04/24/18 22:44 Tramadol HCl (Ultram Tab) 25 mg Q6H PRN PO 03/25/18 22:45 04/24/18 22:44 03/28/18 01:44 25 MG Prochlorperazine Edisylate 5 mg/ Syringe 5 ml @ 5 mls/min Q6H PRN IV 03/25/18 22:45 04/24/18 22:44 Levofloxacin (Consult) 1 ea DAILY PRN N/A 03/26/18 09:00 04/25/18 08:59 Ipratropium Dodson (Atrovent 0.02% 0.5MG/2.5ML Neb) 0.5 mg Q6R INH 03/26/18 03:00 04/25/18 02:59 03/29/18 07:00 0.5 MG Levalbuterol (Xopenex 1.25MG/ 0.5ML Neb) 1.25 mg Q6R INH 03/26/18 03:00 04/25/18 02:59 03/29/18 07:00 1.25 MG Ipratropium Dodson (Atrovent 0.02% 0.5MG/2.5ML Neb) 0.5 mg Q4H PRN INH 03/25/18 23:30 04/24/18 23:29 03/28/18 12:37 0.5 MG Levalbuterol (Xopenex 1.25MG/ 0.5ML Neb) 1.25 mg Q4H PRN INH 03/25/18 23:30 04/24/18 23:29 03/28/18 12:37 1.25 MG Levofloxacin (Levaquin Tab) 750 mg DAILY@2200 PO 03/26/18 22:00 03/31/18 22:01 03/28/18 21:26 750 MG Methylprednisolone Sodium Succinate 40 mg/Syringe 0.64 ml @ 1.5 mls/min Q8 IV 03/28/18 14:00 04/27/18 13:59 03/29/18 06:00 1.5 MLS/MIN Morphine Sulfate (MoRPHine SULFATE INJ) 2 mg Q4 PRN IV 03/28/18 09:30 04/11/18 09:29 Cephalexin Monohydrate (Keflex Cap) 500 mg TID PO 03/28/18 15:30 04/07/18 15:29 03/29/18 07:50 500 MG Objective Vital Signs Date Time Temp Pulse Resp B/P (MAP) Pulse Ox O2 Delivery O2 Flow Rate FiO2 03/29/18 08:00 Nasal Cannula 03/29/18 07:02 82 18 95 Nasal Cannula 4.0 03/29/18 06:23 36.9 80 16 121/78 (92) 100 Nasal Cannula 4.0 03/29/18 04:00 Nasal Cannula 03/29/18 03:43 36.9 88 20 109/66 (80) 97 Nasal Cannula 4.0 03/29/18 01:57 86 20 96 Nasal Cannula 4.0 03/28/18 23:59 Nasal Cannula 03/28/18 23:40 36.9 84 21 122/77 (92) 96 Nasal Cannula 4.0 03/28/18 22:18 85 20 96 Nasal Cannula 4.0 03/28/18 19:59 Nasal Cannula 03/28/18 19:14 36.8 86 18 131/80 (97) 98 Nasal Cannula 4.0 03/28/18 17:55 89 20 96 Nasal Cannula 4.0 03/28/18 16:00 Nasal Cannula 3.0 03/28/18 15:19 36.7 79 22 143/85 (104) 94 Nasal Cannula 3.0 03/28/18 12:37 79 20 94 Nasal Cannula 3.0 03/28/18 12:00 Nasal Cannula 3.0 03/28/18 11:37 36.5 61 16 133/86 (102) 96 Nasal Cannula 3.0 Physical Exam General Appearance: + mild distress Respiratory/Chest: + respiratory distress, + decreased breath sounds, + accessory muscle use Cardiovascular: regular rate, rhythm, no murmur Extremities: + swelling, + pertinent finding (lower extremity swelling; venous stasis dermatitis) Laboratory Results Last 24 Hours Test 03/29/18 05:22 White Blood Count 12.22 K/uL Red Blood Count 3.12 M/uL Hemoglobin 8.6 g/dL Hematocrit 27.8 % Mean Corpuscular Volume 89.1 fL Mean Corpuscular Hemoglobin 27.6 pg Mean Corpuscular Hemoglobin Concent 30.9 g/dl Platelet Count 197 K/uL Mean Platelet Volume 8.7 fL Neutrophils (%) (Auto) 89.0 % Lymphocytes (%) (Auto) 2.9 % Monocytes (%) (Auto) 7.1 % Eosinophils (%) (Auto) 0.0 % Basophils (%) (Auto) 0.1 % Neutrophils # (Auto) 10.88 K/uL Lymphocytes # (Auto) 0.35 K/uL Monocytes # (Auto) 0.87 K/uL Eosinophils # (Auto) 0.00 K/uL Basophils # (Auto) 0.01 K/uL RDW Standard Deviation 52.5 fL RDW Coefficient of Variation 16.8 % Immature Granulocyte % (Auto) 0.9 % Immature Granulocyte # (Auto) 0.11 K/uL Nucleated RBC Absolute Count (auto) 0.04 K/uL Nucleated Red Blood Cells % 0.3 % Hypochromasia PRESENT Prothrombin Time 12.6 SECONDS Prothromb Time International Ratio 1.2 Sodium Level 143 mmol/L Potassium Level 4.5 mmol/L Chloride Level 105 mmol/L Carbon Dioxide Level 35 mmol/L Anion Gap 3.0 mmol/L Blood Urea Nitrogen 21 mg/dl Creatinine 0.78 mg/dl Est Creatinine Clear Calc Drug Dose 119.0 ml/min Estimated GFR () 111.3 Estimated GFR (Non- 96.1 BUN/Creatinine Ratio 26.5 Random Glucose 107 mg/dl Calcium Level 7.7 mg/dl Assessment and Plan This is a 63 year old male with a past medical history of severe COPD, chronic respiratory failure on 3L of O2 continuously, paroxysmal atrial fibrillation on long-term anticoagulation, chronic lymphedema - presents with worsening shortness of breath, multiple falls, hematoma, anemia Acute on Chronic Hypoxic Respiratory Failure Acute COPD Exacerbation secondary to LLL Pneumonia 03/29 - appreciate pulmonary input - Daliresp added - will consult palliative care for goals of care, code status, and possible home hospice - may need rehab prior to discharge 03/28 - patient with worsening respiratory condition; +accessory muscle use, breathing with pursed lips, +respiratory distress - will change oral prednisone to IV solu-medrol - continue nebulizers: Xopenex/Ipratropium - continue Levaquin for pneumonia - baseline O2 of 3L; only saturating well at rest 03/27 - Chest CT - LLL Pneumonia - +wheezing, +shortness of breath - chronically on 3L of O2 - worsening shortness of breath; +accessory muscles, +respiratory distress - will use prednisone 40mg x5 days - will use Levaquin for pneumonia and COPD exacerbation - nebulizers as needed Multiple Falls/Ambulatory Dysfunction leading to Hematoma and Anemia secondary to Coumadin induced Coagulopathy 03/29 - anemia - stable 03/28 - s/p 4 units of pRBCs - Hgb stable - continue to hold Coumadin for now - ice pack to hematoma 03/27 - required 4 units of pRBCs - two units of FFP - INR is reversed, now 1.0; was initially supratherapeutic - has been falling, unsure why; possibly related to UTI/PNA; infectious - will hold Coumadin for 1-2 days - monitor hematoma, monitor Hgb - will need PT/OT prior to discharge, will likely need placement Paroxysmal A. Fib - continue b-geoff - hold Coumadin - currently NSR Chronic Lymphedema - bilateral leg swelling - doppler negative for DVT b/l - hold Lasix, continue prior to discharge UTI - proteus on culture - continue Levaquin for pneumonia, which should treat the UTI as well DVT ppx - SCDs FULL CODE
--- NOTE | 2018-03-29 11:59 | Pulmonology Progress Note ---
Pulmonary Progress Note Date of Service March 29, 2018. Attending Dr. Madera Subjective The patient notes improvement over the last 24 hours in his respiratory status: Objective At this time he is not back to his baseline breathing status but notes improvement and denies: Fever, chills, productive cough or hemoptysis Vital signs: Stable on 3-4 liters nasal cannula Respiratory: Decreased breath sounds bilaterally no acute changes Cardiac: S1-S2 distant heart sounds Abdomen: Positive bowel sounds soft nontender Extremities: 2 to 3+ pitting edema with stasis dermatitis no acute changes Assessment & Plan 63-year-old gentleman admitted with acute on chronic respiratory insufficiency noted to have large ecchymosis status post trauma/fall as well as diffuse infiltrative pattern in the lingula left lower lobe: 1. Pneumonia: Patient's video swallow is currently pending but he is responding well to therapy clinically. Suggest we continue Levaquin for 750 for 5 [address] window. 2[address] scan: Previous CT images all the way back to 02/25/2026 do 8 demonstrated a left upper lobe 23 x 13 mm infiltrate. Previous infiltrative pattern in the right upper lobe posterior subsegment does appear to be stable but there is diffuse new infiltrate in the lingula left lower lobe which could be secondary to pneumonia, aspiration or even pulmonary hemorrhage after the patient's falls. This will require for 6 week follow-up to determine resolution 3. COPD: Per the records the patient has very severe COPD with an FEV1 possibly as low as 15%. Patient is stabilizing will move his steroids from IV to p.o. and continue other regimen. 4. Hypoxia: Patient's hypoxia most likely combination of new infiltrative pattern, underlying COPD as well as chronic volume overload status. 5. Anticoagulation: Patient with history of atrial fibrillation on Coumadin came in with supratherapeutic INR current INR subtherapeutic but patient with large ecchymoses. Patient is currently being monitored off anticoagulation. Sign off: At this time the pulmonary team will sign off please contact us if the patient changes clinically/declines. Will follow-up on the swallow evaluation. Data Medications: Current Inpatient Medications Medications (Trade) Dose Ordered Sig/Denisse Route Start Time Stop Time Status Last Admin Dose Admin Ioversol (Optiray 320) 100 ml UD PRN IV 03/25/18 19:00 03/29/18 18:59 Metoprolol Succinate (Toprol Xl Tab) 25 mg DAILY PO 03/26/18 09:00 04/25/18 08:59 03/29/18 07:49 25 MG Sertraline HCl (Zoloft Tab) 100 mg HS PO 03/26/18 21:00 04/25/18 20:59 03/28/18 21:25 100 MG Miscellaneous Information (Order Awaiting Action) 1 ea QS N/A 03/26/18 00:00 04/25/18 00:00 Lactobacillus Acidophilus (Floranex Tab) 1 tab DAILY PO 03/26/18 09:00 04/25/18 08:59 03/29/18 07:49 1 TAB Acetaminophen (Tylenol Tab) 650 mg Q4H PRN PO 03/25/18 22:45 04/24/18 22:44 Nitroglycerin (Nitrostat Tab) 0.4 mg UD PRN SL 03/25/18 22:45 04/24/18 22:44 Tramadol HCl (Ultram Tab) 25 mg Q6H PRN PO 03/25/18 22:45 04/24/18 22:44 03/28/18 01:44 25 MG Prochlorperazine Edisylate 5 mg/ Syringe 5 ml @ 5 mls/min Q6H PRN IV 03/25/18 22:45 04/24/18 22:44 Levofloxacin (Consult) 1 ea DAILY PRN N/A 03/26/18 09:00 04/25/18 08:59 Ipratropium [place] (Atrovent 0.02% 0.5MG/2.5ML Neb) 0.5 mg Q6R INH 03/26/18 03:00 04/25/18 02:59 03/29/18 07:00 0.5 MG Levalbuterol (Xopenex 1.25MG/ 0.5ML Neb) 1.25 mg Q6R INH 03/26/18 03:00 04/25/18 02:59 03/29/18 07:00 1.25 MG Ipratropium [place] (Atrovent 0.02% 0.5MG/2.5ML Neb) 0.5 mg Q4H PRN INH 03/25/18 23:30 04/24/18 23:29 03/28/18 12:37 0.5 MG Levalbuterol (Xopenex 1.25MG/ 0.5ML Neb) 1.25 mg Q4H PRN INH 03/25/18 23:30 04/24/18 23:29 03/28/18 12:37 1.25 MG Levofloxacin (Levaquin Tab) 750 mg DAILY@2200 PO 03/26/18 22:00 03/31/18 22:01 03/28/18 21:26 750 MG Methylprednisolone Sodium Succinate 40 mg/Syringe 0.64 ml @ 1.5 mls/min Q8 IV 03/28/18 14:00 04/27/18 13:59 03/29/18 06:00 1.5 MLS/MIN Morphine Sulfate (MoRPHine SULFATE INJ) 2 mg Q4 PRN IV 03/28/18 09:30 04/11/18 09:29 Cephalexin Monohydrate (Keflex Cap) 500 mg TID PO 03/28/18 15:30 04/07/18 15:29 03/29/18 07:50 500 MG Vital Signs: Date Time Temp Pulse Resp B/P (MAP) Pulse Ox O2 Delivery O2 Flow Rate FiO2 03/29/18 11:26 36.7 87 20 129/76 (93) 96 Nasal Cannula 3.0 03/29/18 08:00 Nasal Cannula 03/29/18 07:02 82 18 95 Nasal Cannula 4.0 03/29/18 06:23 36.9 80 16 121/78 (92) 100 Nasal Cannula 4.0 03/29/18 04:00 Nasal Cannula 03/29/18 03:43 36.9 88 20 109/66 (80) 97 Nasal Cannula 4.0 03/29/18 01:57 86 20 96 Nasal Cannula 4.0 03/28/18 23:59 Nasal Cannula 03/28/18 23:40 36.9 84 21 122/77 (92) 96 Nasal Cannula 4.0 03/28/18 22:18 85 20 96 Nasal Cannula 4.0 03/28/18 19:59 Nasal Cannula 03/28/18 19:14 36.8 86 18 131/80 (97) 98 Nasal Cannula 4.0 03/28/18 17:55 89 20 96 Nasal Cannula 4.0 03/28/18 16:00 Nasal Cannula 3.0 03/28/18 15:19 36.7 79 22 143/85 (104) 94 Nasal Cannula 3.0 03/28/18 12:37 79 20 94 Nasal Cannula 3.0 03/28/18 12:00 Nasal Cannula 3.0 Laboratory Results: Last 24 Hours Test 03/29/18 05:22 White Blood Count 12.22 K/uL Red Blood Count 3.12 M/uL Hemoglobin 8.6 g/dL Hematocrit 27.8 % Mean Corpuscular Volume 89.1 fL Mean Corpuscular Hemoglobin 27.6 pg Mean Corpuscular Hemoglobin Concent 30.9 g/dl Platelet Count 197 K/uL Mean Platelet Volume 8.7 fL Neutrophils (%) (Auto) 89.0 % Lymphocytes (%) (Auto) 2.9 % Monocytes (%) (Auto) 7.1 % Eosinophils (%) (Auto) 0.0 % Basophils (%) (Auto) 0.1 % Neutrophils # (Auto) 10.88 K/uL Lymphocytes # (Auto) 0.35 K/uL Monocytes # (Auto) 0.87 K/uL Eosinophils # (Auto) 0.00 K/uL Basophils # (Auto) 0.01 K/uL RDW Standard Deviation 52.5 fL RDW Coefficient of Variation 16.8 % Immature Granulocyte % (Auto) 0.9 % Immature Granulocyte # (Auto) 0.11 K/uL Nucleated RBC Absolute Count (auto) 0.04 K/uL Nucleated Red Blood Cells % 0.3 % Hypochromasia PRESENT Prothrombin Time 12.6 SECONDS Prothromb Time International Ratio 1.2 Sodium Level 143 mmol/L Potassium Level 4.5 mmol/L Chloride Level 105 mmol/L Carbon Dioxide Level 35 mmol/L Anion Gap 3.0 mmol/L Blood Urea Nitrogen 21 mg/dl Creatinine 0.78 mg/dl Est Creatinine Clear Calc Drug Dose 119.0 ml/min Estimated GFR () 111.3 Estimated GFR (Non- 96.1 BUN/Creatinine Ratio 26.5 Random Glucose 107 mg/dl Calcium Level 7.7 mg/dl
--- NOTE | 2018-03-29 14:07 | Palliative Care Consultation ---
Consultation Date of Consultation: March 29, 2018. Requesting Physician: Dr. Thakkar Attending Physician: Reason for Consultation: Goals of Care History of Present Illness This patient is a 63 year old who presented with increased falls and fatigue, along with shortness of breath. The patient has significant COPD with an FEV1 of 15%. Additional PMH includes pAFib on anticoagulation, falls, and chronic lymphedema. Palliative Care was consulted for GOALS OF CARE and to discuss CODE STATUS for which the patient stated that he would like to be DNR/DNI. A POLST form was completed at the bedside and placed on the chart. I discussed this with the attending and no further aggressive interventions will be pursued. I have reached out to his sister, Ariadna Rossi to advise of his decision to change to a DNR. Discharge plans have been initiated for him to proceed with skilled services and eventual transition to hospice at [facility]. Case management is following. Thank you kindly for this consult - we are happy to be involved and will continue to follow throughout his hospitalization. Past Medical/Surgical History Medical History: pAfib Chronic lymphedema COPD anemia Social History Smoking Status: Former Smoker History of Alcohol Use: No Drug Use: none Marital Status: Housing Status: lives alone Occupation Status: disabled Review of Systems General: Pt denies acute pain HEENT: Pt denies OLIVO, dizziness, visual changes CV: Pt denies CP, palpitations Resp: Pt states he has [place] and rest GI: Pt denies abdominal pain, N/V/D : Pt denies urinary changes Skin: Pt denies any new rashes Allergies Coded Allergies: Piperacillin (Verified Allergy, Mild, RASH, 01/02/18) rash 01/01/18 most likely due to piperacillin / tazobactam Medications Current Inpatient Medications Medications (Trade) Dose Ordered Sig/Denisse Route Start Time Stop Time Status Last Admin Dose Admin Ioversol (Optiray 320) 100 ml UD PRN IV 03/25/18 19:00 03/29/18 18:59 Metoprolol Succinate (Toprol Xl Tab) 25 mg DAILY PO 03/26/18 09:00 04/25/18 08:59 03/29/18 07:49 25 MG Sertraline HCl (Zoloft Tab) 100 mg HS PO 03/26/18 21:00 04/25/18 20:59 03/28/18 21:25 100 MG Miscellaneous Information (Order Awaiting Action) 1 ea QS N/A 03/26/18 00:00 04/25/18 00:00 Lactobacillus Acidophilus (Floranex Tab) 1 tab DAILY PO 03/26/18 09:00 04/25/18 08:59 03/29/18 07:49 1 TAB Acetaminophen (Tylenol Tab) 650 mg Q4H PRN PO 03/25/18 22:45 04/24/18 22:44 Nitroglycerin (Nitrostat Tab) 0.4 mg UD PRN SL 03/25/18 22:45 04/24/18 22:44 Tramadol HCl (Ultram Tab) 25 mg Q6H PRN PO 03/25/18 22:45 04/24/18 22:44 03/28/18 01:44 25 MG Prochlorperazine Edisylate 5 mg/ Syringe 5 ml @ 5 mls/min Q6H PRN IV 03/25/18 22:45 04/24/18 22:44 Levofloxacin (Consult) 1 ea DAILY PRN N/A 03/26/18 09:00 04/25/18 08:59 Ipratropium [place] (Atrovent 0.02% 0.5MG/2.5ML Neb) 0.5 mg Q4H PRN INH 03/25/18 23:30 04/24/18 23:29 03/28/18 12:37 0.5 MG Levalbuterol (Xopenex 1.25MG/ 0.5ML Neb) 1.25 mg Q4H PRN INH 03/25/18 23:30 04/24/18 23:29 03/28/18 12:37 1.25 MG Levofloxacin (Levaquin Tab) 750 mg DAILY@2200 PO 03/26/18 22:00 03/31/18 22:01 03/28/18 21:26 750 MG Methylprednisolone Sodium Succinate 40 mg/Syringe 0.64 ml @ 1.5 mls/min Q8 IV 03/28/18 14:00 03/29/18 23:00 03/29/18 06:00 1.5 MLS/MIN Morphine Sulfate (MoRPHine SULFATE INJ) 2 mg Q4 PRN IV 03/28/18 09:30 04/11/18 09:29 Cephalexin Monohydrate (Keflex Cap) 500 mg TID PO 03/28/18 15:30 04/07/18 15:29 03/29/18 07:50 500 MG Prednisone (PredniSONE TAB) 40 mg DAILY PO 03/30/18 08:00 04/10/18 07:59 Albuterol/ Ipratropium (Combivent Respimat Inh) 1 puffs QID INH 03/29/18 17:00 04/28/18 16:59 Physical Exam Date Time Temp Pulse Resp B/P (MAP) Pulse Ox O2 Delivery O2 Flow Rate FiO2 03/29/18 12:08 Nasal Cannula 03/29/18 11:26 36.7 87 20 129/76 (93) 96 Nasal Cannula 3.0 03/29/18 08:00 Nasal Cannula 03/29/18 07:02 82 18 95 Nasal Cannula 4.0 03/29/18 06:23 36.9 80 16 121/78 (92) 100 Nasal Cannula 4.0 03/29/18 04:00 Nasal Cannula 03/29/18 03:43 36.9 88 20 109/66 (80) 97 Nasal Cannula 4.0 03/29/18 01:57 86 20 96 Nasal Cannula 4.0 03/28/18 23:59 Nasal Cannula 03/28/18 23:40 36.9 84 21 122/77 (92) 96 Nasal Cannula 4.0 03/28/18 22:18 85 20 96 Nasal Cannula 4.0 03/28/18 19:59 Nasal Cannula 03/28/18 19:14 36.8 86 18 131/80 (97) 98 Nasal Cannula 4.0 03/28/18 17:55 89 20 96 Nasal Cannula 4.0 03/28/18 16:00 Nasal Cannula 3.0 03/28/18 15:19 36.7 79 22 143/85 (104) 94 Nasal Cannula 3.0 General Appearance: no apparent distress Respiratory: + decreased breath sounds, + accessory muscle use (pursed lip breathing) Cardiovascular: regular rate, rhythm, no edema, no gallop, no JVD, no murmur Abdomen: normal bowel sounds, non tender, soft Neurologic/Psychiatric: oriented x 3 Skin: normal color, warm/dry Laboratory Results Last 24 Hours Test 03/29/18 05:22 White Blood Count 12.22 K/uL Red Blood Count 3.12 M/uL Hemoglobin 8.6 g/dL Hematocrit 27.8 % Mean Corpuscular Volume 89.1 fL Mean Corpuscular Hemoglobin 27.6 pg Mean Corpuscular Hemoglobin Concent 30.9 g/dl Platelet Count 197 K/uL Mean Platelet Volume 8.7 fL Neutrophils (%) (Auto) 89.0 % Lymphocytes (%) (Auto) 2.9 % Monocytes (%) (Auto) 7.1 % Eosinophils (%) (Auto) 0.0 % Basophils (%) (Auto) 0.1 % Neutrophils # (Auto) 10.88 K/uL Lymphocytes # (Auto) 0.35 K/uL Monocytes # (Auto) 0.87 K/uL Eosinophils # (Auto) 0.00 K/uL Basophils # (Auto) 0.01 K/uL RDW Standard Deviation 52.5 fL RDW Coefficient of Variation 16.8 % Immature Granulocyte % (Auto) 0.9 % Immature Granulocyte # (Auto) 0.11 K/uL Nucleated RBC Absolute Count (auto) 0.04 K/uL Nucleated Red Blood Cells % 0.3 % Hypochromasia PRESENT Prothrombin Time 12.6 SECONDS Prothromb Time International Ratio 1.2 Sodium Level 143 mmol/L Potassium Level 4.5 mmol/L Chloride Level 105 mmol/L Carbon Dioxide Level 35 mmol/L Anion Gap 3.0 mmol/L Blood Urea Nitrogen 21 mg/dl Creatinine 0.78 mg/dl Est Creatinine Clear Calc Drug Dose 119.0 ml/min Estimated GFR () 111.3 Estimated GFR (Non- 96.1 BUN/Creatinine Ratio 26.5 Random Glucose 107 mg/dl Calcium Level 7.7 mg/dl Assessment & Plan Palliative Performance Scale: 40 % Palliative Care Encounter Goals of Care COPD Palliative Care Recommendations: -Continue supportive treatment plan, D/C video swallow as patient does not want to proceed with additional invasive diagnostics. Attending made aware and will follow up accordingly -CODE STATUS was addressed. Patient would like to be DNR after our discussion. -Discharge planning remains to be going to [facility] with eventual transfer to Hospice -POLST form completed and placed on the chart Counseling and Coordination Total time spent 70 minutes with > 50% of that time spent reviewing the chart, assessing the patient, and discussing GOALS OF CARE and filling out a POLST form with the patient.
[2018-03-29] MEDS: LEVALBUTEROL 1.25MG/0.5ML NEB INH PRN (14:40)
[2018-03-29] MEDS: IPRATROPIUM BROMIDE NEB SOLN 0.02% 2.5 ML VIAL INH PRN (14:40)
[2018-03-29] MEDS: IPRATROPIUM BROMIDE/ALBUTEROL respimat INH INH SCH ×2 (17:00→21:16)
[2018-03-29] MEDS: SERTRALINE HCL 100 MG TAB PO SCH (21:14)
[2018-03-29] MEDS: LEVOFLOXACIN 750 MG TAB PO SCH (21:45)
[2018-03-30 03:01] VITALS: BP 136/85; PULSE 81; TEMP 36.7; O2SAT 97
[2018-03-30 06:23] VITALS: BP 116/67; PULSE 74; TEMP 36.5; O2SAT 100
[2018-03-30 06:32] LABS: CALCIUM 7.9 mg/dl (8.5-10.1); CREATININE 0.79 mg/dl (0.60-1.40); POTASSIUM 4.9 mmol/L (3.5-5.1)
[2018-03-30 06:38] LABS: BASO % 0.1 %; BASO ABS # 0.01 K/uL (0-0.2); HEMATOCRIT 31.6 % (42-52); HEMOGLOBIN 9.3 g/dL (14.0-18.0); IG# 0.13 K/uL (0.00-0.02); LYMPH % 3.6 %; LYMPH ABS # 0.61 K/uL (1.2-3.4); MEAN CELL VOLUME 89.8 fL (80-100); MEAN CORPUSCULAR HEMOGLOBIN 26.4 pg (25-34); MEAN CORPUSCULAR HGB CONC 29.4 g/dl (32-36); MEAN PLATELET VOLUME 8.7 fL (7.4-10.4); MONO % 6.8 %; MONO ABS # 1.13 K/uL (0.11-0.59); NEUT % 88.7 %; NEUT ABS # 14.84 K/uL (1.4-6.5); PLATELET COUNT 205 K/uL (130-400); RED CELL DISTRIBUTION WIDTH CV 16.5 % (11.5-14.5); RED CELL DISTRIBUTION WIDTH SD 52.9 fL (36.4-46.3); WHITE BLOOD COUNT 16.72 K/uL (4.8-10.8)
[2018-03-30] MEDS ORDERED: NURSING VERBAL MED ORDER ONE ×2 (08:45→21:00)
[2018-03-30] MEDS: METOPROLOL SUCC 25MG EXT REL TAB PO SCH (09:12)
[2018-03-30] MEDS: LACTOBACILLUS ACIDOPHILUS (FLORANEX) TAB PO SCH (09:12)
[2018-03-30] MEDS: CEPHALEXIN MONOHYDRATE 500 MG CAP PO SCH ×3 (09:13→20:23)
[2018-03-30] MEDS: IPRATROPIUM BROMIDE/ALBUTEROL respimat INH INH SCH ×4 (09:13→20:22)
[2018-03-30 11:34] VITALS: BP 123/73; PULSE 68; TEMP 37; O2SAT 100
[2018-03-30 15:34] VITALS: BP 138/76; PULSE 82; TEMP 36.7; O2SAT 99
--- NOTE | 2018-03-30 17:48 | Progress Note ---
Subjective Date of Service: March 30, 2018. Subjective Pt evaluation today including: conversation w/ patient, physical exam, lab review, review of studies, review of inpatient medication list Saw/examined the patient in room 229 He's doing okay, breathing status slightly improved Denies chest pain/palpitations Lower extremity edema persists Problem List Medical Problems: (1) COPD with acute exacerbation Status: Acute (2) Dehydration Status: Acute (3) Hypoxia Status: Acute (4) Left lower lobe pneumonia Status: Acute (5) Malnutrition Status: Acute (6) Swelling of left extremity Status: Acute (7) Swelling of right extremity Status: Acute Review of Systems Constitutional: No fever, No chills Respiratory: + wheezing, + shortness of breath, + dyspnea on exertion, + dyspnea at rest, No hemoptysis Cardiac: + edema, No chest pain, No palpitations Medications Current Inpatient Medications Medications (Trade) Dose Ordered Sig/Denisse Route Start Time Stop Time Status Last Admin Dose Admin Metoprolol Succinate (Toprol Xl Tab) 25 mg DAILY PO 03/26/18 09:00 04/25/18 08:59 03/30/18 09:12 25 MG Sertraline HCl (Zoloft Tab) 100 mg HS PO 03/26/18 21:00 04/25/18 20:59 03/29/18 21:14 100 MG Miscellaneous Information (Order Awaiting Action) 1 ea QS N/A 03/26/18 00:00 04/25/18 00:00 Lactobacillus Acidophilus (Floranex Tab) 1 tab DAILY PO 03/26/18 09:00 04/25/18 08:59 03/30/18 09:12 1 TAB Acetaminophen (Tylenol Tab) 650 mg Q4H PRN PO 03/25/18 22:45 04/24/18 22:44 Nitroglycerin (Nitrostat Tab) 0.4 mg UD PRN SL 03/25/18 22:45 04/24/18 22:44 Tramadol HCl (Ultram Tab) 25 mg Q6H PRN PO 03/25/18 22:45 04/24/18 22:44 03/28/18 01:44 25 MG Prochlorperazine Edisylate 5 mg/ Syringe 5 ml @ 5 mls/min Q6H PRN IV 03/25/18 22:45 6/5/18 22:44 Levofloxacin (Consult) 1 ea DAILY PRN N/A 03/26/18 09:00 04/25/18 08:59 Ipratropium [place] (Atrovent 0.02% 0.5MG/2.5ML Neb) 0.5 mg Q4H PRN INH 03/25/18 23:30 04/24/18 23:29 03/29/18 14:40 0.5 MG Levalbuterol (Xopenex 1.25MG/ 0.5ML Neb) 1.25 mg Q4H PRN INH 03/25/18 23:30 04/24/18 23:29 03/29/18 14:40 1.25 MG Levofloxacin (Levaquin Tab) 750 mg DAILY@2200 PO 03/26/18 22:00 03/31/18 22:01 03/29/18 21:45 750 MG Morphine Sulfate (MoRPHine SULFATE INJ) 2 mg Q4 PRN IV 03/28/18 09:30 04/11/18 09:29 Cephalexin Monohydrate (Keflex Cap) 500 mg TID PO 03/28/18 15:30 04/07/18 15:29 03/30/18 13:02 500 MG Albuterol/ Ipratropium (Combivent Respimat Inh) 1 puffs QID INH 03/29/18 17:00 04/28/18 16:59 03/30/18 17:19 1 PUFFS Prednisone (PredniSONE TAB) 20 mg BID PO 03/30/18 09:00 04/29/18 08:59 03/30/18 09:12 20 MG Objective Vital Signs Date Time Temp Pulse Resp B/P (MAP) Pulse Ox O2 Delivery O2 Flow Rate FiO2 03/30/18 16:00 Nasal Cannula 4.0 03/30/18 15:34 36.7 82 22 138/76 (96) 99 Room Air 4.0 03/30/18 12:00 Nasal Cannula 4.0 03/30/18 11:34 37.0 68 20 123/73 (90) 100 03/30/18 08:00 Nasal Cannula 4.0 03/30/18 06:23 36.5 74 20 116/67 (83) 100 Nasal Cannula 4.5 03/30/18 04:00 Nasal Cannula 4.0 03/30/18 03:01 36.7 81 20 136/85 (102) 97 Nasal Cannula 4.5 03/29/18 23:59 94 Nasal Cannula 4.0 03/29/18 22:55 36.8 82 20 128/86 (100) 98 Nasal Cannula 4.5 03/29/18 20:00 96 Nasal Cannula 4.0 03/29/18 18:58 36.8 81 20 139/81 (100) 95 Nasal Cannula 3.0 Physical Exam General Appearance: + mild distress Respiratory/Chest: + respiratory distress, + decreased breath sounds, + accessory muscle use Extremities: + swelling, + pertinent finding (chronic lymphedema) Laboratory Results Last 24 Hours Test 03/30/18 05:15 White Blood Count 16.72 K/uL Red Blood Count 3.52 M/uL Hemoglobin 9.3 g/dL Hematocrit 31.6 % Mean Corpuscular Volume 89.8 fL Mean Corpuscular Hemoglobin 26.4 pg Mean Corpuscular Hemoglobin Concent 29.4 g/dl Platelet Count 205 K/uL Mean Platelet Volume 8.7 fL Neutrophils (%) (Auto) 88.7 % Lymphocytes (%) (Auto) 3.6 % Monocytes (%) (Auto) 6.8 % Eosinophils (%) (Auto) 0.0 % Basophils (%) (Auto) 0.1 % Neutrophils # (Auto) 14.84 K/uL Lymphocytes # (Auto) 0.61 K/uL Monocytes # (Auto) 1.13 K/uL Eosinophils # (Auto) 0.00 K/uL Basophils # (Auto) 0.01 K/uL RDW Standard Deviation 52.9 fL RDW Coefficient of Variation 16.5 % Immature Granulocyte % (Auto) 0.8 % Immature Granulocyte # (Auto) 0.13 K/uL Sodium Level 140 mmol/L Potassium Level 4.9 mmol/L Chloride Level 103 mmol/L Carbon Dioxide Level 36 mmol/L Anion Gap 1.0 mmol/L Blood Urea Nitrogen 25 mg/dl Creatinine 0.79 mg/dl Est Creatinine Clear Calc Drug Dose 117.5 ml/min Estimated GFR () 110.8 Estimated GFR (Non- 95.6 BUN/Creatinine Ratio 31.5 Random Glucose 103 mg/dl Calcium Level 7.9 mg/dl Assessment and Plan This is a 63 year old male with a past medical history of severe COPD, chronic respiratory failure on 3L of O2 continuously, paroxysmal atrial fibrillation on long-term anticoagulation, chronic lymphedema - presents with worsening shortness of breath, multiple falls, hematoma, anemia Acute on Chronic Hypoxic Respiratory Failure Acute COPD Exacerbation secondary to LLL Pneumonia 03/30 - plan to d/c to SNF - transition to prednisone 20mg BID - transition to hospice afterwards - current DNR status 03/29 - appreciate pulmonary input - Daliresp added - will consult palliative care for goals of care, code status, and possible home hospice - may need rehab prior to discharge 03/28 - patient with worsening respiratory condition; +accessory muscle use, breathing with pursed lips, +respiratory distress - will change oral prednisone to IV solu-medrol - continue nebulizers: Xopenex/Ipratropium - continue Levaquin for pneumonia - baseline O2 of 3L; only saturating well at rest 03/27 - Chest CT - LLL Pneumonia - +wheezing, +shortness of breath - chronically on 3L of O2 - worsening shortness of breath; +accessory muscles, +respiratory distress - will use prednisone 40mg x5 days - will use Levaquin for pneumonia and COPD exacerbation - nebulizers as needed Multiple Falls/Ambulatory Dysfunction leading to Hematoma and Anemia secondary to Coumadin induced Coagulopathy 03/29 - anemia - stable 03/28 - s/p 4 units of pRBCs - Hgb stable - continue to hold Coumadin for now - ice pack to hematoma 03/27 - required 4 units of pRBCs - two units of FFP - INR is reversed, now 1.0; was initially supratherapeutic - has been falling, unsure why; possibly related to UTI/PNA; infectious - will hold Coumadin for 1-2 days - monitor hematoma, monitor Hgb - will need PT/OT prior to discharge, will likely need placement Paroxysmal A. Fib - continue b-geoff - hold Coumadin - currently NSR Chronic Lymphedema - bilateral leg swelling - doppler negative for DVT b/l - hold Lasix, continue prior to discharge UTI - proteus on culture - continue Levaquin for pneumonia, which should treat the UTI as well DVT ppx - SCDs FULL CODE
[2018-03-30 19:06] VITALS: BP 124/71; PULSE 82; TEMP 36.9; O2SAT 99
[2018-03-30] MEDS: SERTRALINE HCL 100 MG TAB PO SCH (20:23)
[2018-03-30] MEDS: LEVOFLOXACIN 750 MG TAB PO SCH (21:14)
[2018-03-30] MEDS ORDERED: TRAMADOL HCL 50 MG TAB PO ONE (21:15)
[2018-03-30 23:10] VITALS: BP 119/80; PULSE 75; TEMP 36.7; O2SAT 100
[2018-03-31] VITALS (10 sets, daily range): BP systolic 91–141; BP diastolic 55–79; PULSE 66–84; TEMP 36.4–36.8; O2SAT 92–100
[2018-03-31 05:55] LABS: BASO % 0.1 %; BASO ABS # 0.02 K/uL (0-0.2); EOS % 0.3 %; EOS ABS # 0.05 K/uL (0-0.5); HEMATOCRIT 34.2 % (42-52); HEMOGLOBIN 10.6 g/dL (14.0-18.0); IG# 0.24 K/uL (0.00-0.02); LYMPH % 4.4 %; LYMPH ABS # 0.74 K/uL (1.2-3.4); MEAN CELL VOLUME 89.3 fL (80-100); MEAN CORPUSCULAR HEMOGLOBIN 27.7 pg (25-34); MEAN PLATELET VOLUME 8.5 fL (7.4-10.4); MONO % 9.6 %; MONO ABS # 1.59 K/uL (0.11-0.59); NEUT % 84.2 %; NEUT ABS # 13.99 K/uL (1.4-6.5); NUCLEATED RED BLOOD CELL ABS 0.06 K/uL (0-0); PLATELET COUNT 201 K/uL (130-400); RED CELL DISTRIBUTION WIDTH CV 16.2 % (11.5-14.5); RED CELL DISTRIBUTION WIDTH SD 51.2 fL (36.4-46.3); WHITE BLOOD COUNT 16.63 K/uL (4.8-10.8)
[2018-03-31 06:14] LABS: CALCIUM 8.2 mg/dl (8.5-10.1); CREATININE 0.72 mg/dl (0.60-1.40)
[2018-03-31] MEDS: CEPHALEXIN MONOHYDRATE 500 MG CAP PO SCH ×3 (08:38→21:28)
[2018-03-31] MEDS: METOPROLOL SUCC 25MG EXT REL TAB PO SCH (08:38)
[2018-03-31] MEDS: LACTOBACILLUS ACIDOPHILUS (FLORANEX) TAB PO SCH (08:38)
[2018-03-31] MEDS: IPRATROPIUM BROMIDE/ALBUTEROL respimat INH INH SCH ×4 (08:39→21:27)
--- NOTE | 2018-03-31 11:39 | Progress Note ---
Subjective Date of Service: March 31, 2018. Subjective Pt evaluation today including: conversation w/ patient, physical exam, lab review, review of studies, review of inpatient medication list Saw/examined the patient in room 229 He's doing well, no problems/issues to note today Problem List Medical Problems: (1) COPD with acute exacerbation Status: Acute (2) Dehydration Status: Acute (3) Hypoxia Status: Acute (4) Left lower lobe pneumonia Status: Acute (5) Malnutrition Status: Acute (6) Swelling of left extremity Status: Acute (7) Swelling of right extremity Status: Acute Review of Systems Respiratory: + cough, + sputum, + wheezing, + shortness of breath, + dyspnea on exertion, + dyspnea at rest, No hemoptysis Cardiac: No chest pain Medications Current Inpatient Medications Medications (Trade) Dose Ordered Sig/Denisse Route Start Time Stop Time Status Last Admin Dose Admin Metoprolol Succinate (Toprol Xl Tab) 25 mg DAILY PO 03/26/18 09:00 04/25/18 08:59 03/31/18 08:38 25 MG Sertraline HCl (Zoloft Tab) 100 mg HS PO 03/26/18 21:00 04/25/18 20:59 03/30/18 20:23 100 MG Miscellaneous Information (Order Awaiting Action) 1 ea QS N/A 03/26/18 00:00 04/25/18 00:00 Lactobacillus Acidophilus (Floranex Tab) 1 tab DAILY PO 03/26/18 09:00 04/25/18 08:59 03/31/18 08:38 1 TAB Acetaminophen (Tylenol Tab) 650 mg Q4H PRN PO 03/25/18 22:45 04/24/18 22:44 Nitroglycerin (Nitrostat Tab) 0.4 mg UD PRN SL 03/25/18 22:45 04/24/18 22:44 Tramadol HCl (Ultram Tab) 25 mg Q6H PRN PO 03/25/18 22:45 04/24/18 22:44 03/28/18 01:44 25 MG Prochlorperazine Edisylate 5 mg/ Syringe 5 ml @ 5 mls/min Q6H PRN IV 03/25/18 22:45 04/24/18 22:44 Levofloxacin (Consult) 1 ea DAILY PRN N/A 03/26/18 09:00 04/25/18 08:59 Ipratropium [place] (Atrovent 0.02% 0.5MG/2.5ML Neb) 0.5 mg Q4H PRN INH 03/25/18 23:30 04/24/18 23:29 03/29/18 14:40 0.5 MG Levalbuterol (Xopenex 1.25MG/ 0.5ML Neb) 1.25 mg Q4H PRN INH 03/25/18 23:30 04/24/18 23:29 03/29/18 14:40 1.25 MG Levofloxacin (Levaquin Tab) 750 mg DAILY@2200 PO 03/26/18 22:00 03/31/18 22:01 03/30/18 21:14 750 MG Morphine Sulfate (MoRPHine SULFATE INJ) 2 mg Q4 PRN IV 03/28/18 09:30 04/11/18 09:29 Cephalexin Monohydrate (Keflex Cap) 500 mg TID PO 03/28/18 15:30 04/07/18 15:29 03/31/18 08:38 500 MG Albuterol/ Ipratropium (Combivent Respimat Inh) 1 puffs QID INH 03/29/18 17:00 04/28/18 16:59 03/31/18 08:39 1 PUFFS Prednisone (PredniSONE TAB) 20 mg BID PO 03/30/18 09:00 04/29/18 08:59 03/31/18 08:38 20 MG Objective Vital Signs Date Time Temp Pulse Resp B/P (MAP) Pulse Ox O2 Delivery O2 Flow Rate FiO2 03/31/18 08:00 Nasal Cannula 4.0 03/31/18 07:16 36.6 66 18 132/72 (92) 95 Nasal Cannula 4.0 03/31/18 04:00 Nasal Cannula 4.0 03/31/18 03:34 36.6 68 18 124/79 (94) 100 Nasal Cannula 4.0 03/31/18 00:01 Nasal Cannula 4.0 03/30/18 23:10 36.7 75 18 119/80 (93) 100 Nasal Cannula 4.0 03/30/18 20:00 Nasal Cannula 4.0 03/30/18 19:06 36.9 82 18 124/71 (88) 99 Nasal Cannula 4.0 03/30/18 16:00 Nasal Cannula 4.0 03/30/18 15:34 36.7 82 22 138/76 (96) 99 Room Air 4.0 03/30/18 12:00 Nasal Cannula 4.0 Physical Exam General Appearance: + mild distress Respiratory/Chest: + respiratory distress, + decreased breath sounds, + accessory muscle use Cardiovascular: regular rate, rhythm, no murmur Extremities: + pertinent finding (chronic lymphedema, venous stasis dermatitis) Neurologic/Psychiatric: no motor/sensory deficits, alert, normal mood/affect Laboratory Results Last 24 Hours Test 03/31/18 05:17 White Blood Count 16.63 K/uL Red Blood Count 3.83 M/uL Hemoglobin 10.6 g/dL Hematocrit 34.2 % Mean Corpuscular Volume 89.3 fL Mean Corpuscular Hemoglobin 27.7 pg Mean Corpuscular Hemoglobin Concent 31.0 g/dl Platelet Count 201 K/uL Mean Platelet Volume 8.5 fL Neutrophils (%) (Auto) 84.2 % Lymphocytes (%) (Auto) 4.4 % Monocytes (%) (Auto) 9.6 % Eosinophils (%) (Auto) 0.3 % Basophils (%) (Auto) 0.1 % Neutrophils # (Auto) 13.99 K/uL Lymphocytes # (Auto) 0.74 K/uL Monocytes # (Auto) 1.59 K/uL Eosinophils # (Auto) 0.05 K/uL Basophils # (Auto) 0.02 K/uL RDW Standard Deviation 51.2 fL RDW Coefficient of Variation 16.2 % Immature Granulocyte % (Auto) 1.4 % Immature Granulocyte # (Auto) 0.24 K/uL Nucleated RBC Absolute Count (auto) 0.06 K/uL Nucleated Red Blood Cells % 0.3 % Sodium Level 139 mmol/L Potassium Level 5.0 mmol/L Chloride Level 99 mmol/L Carbon Dioxide Level 35 mmol/L Anion Gap 5.0 mmol/L Blood Urea Nitrogen 25 mg/dl Creatinine 0.72 mg/dl Est Creatinine Clear Calc Drug Dose 128.9 ml/min Estimated GFR () 115.1 Estimated GFR (Non- 99.3 BUN/Creatinine Ratio 35.4 Random Glucose 93 mg/dl Calcium Level 8.2 mg/dl Assessment and Plan This is a 63 year old male with a past medical history of severe COPD, chronic respiratory failure on 3L of O2 continuously, paroxysmal atrial fibrillation on long-term anticoagulation, chronic lymphedema - presents with worsening shortness of breath, multiple falls, hematoma, anemia Acute on Chronic Hypoxic Respiratory Failure Acute COPD Exacerbation secondary to LLL Pneumonia 03/31 - will likely d/c abx. in 1-2 days, taper down prednisone in AM - continue PT/OT - plan for SNF discharge on Monday - DNR status, likely hospice transition afterwards - discontinue Coumadin 03/30 - plan to d/c to SNF - transition to prednisone 20mg BID - transition to hospice afterwards - current DNR status 03/29 - appreciate pulmonary input - Daliresp added - will consult palliative care for goals of care, code status, and possible home hospice - may need rehab prior to discharge 03/28 - patient with worsening respiratory condition; +accessory muscle use, breathing with pursed lips, +respiratory distress - will change oral prednisone to IV solu-medrol - continue nebulizers: Xopenex/Ipratropium - continue Levaquin for pneumonia - baseline O2 of 3L; only saturating well at rest 03/27 - Chest CT - LLL Pneumonia - +wheezing, +shortness of breath - chronically on 3L of O2 - worsening shortness of breath; +accessory muscles, +respiratory distress - will use prednisone 40mg x5 days - will use Levaquin for pneumonia and COPD exacerbation - nebulizers as needed Multiple Falls/Ambulatory Dysfunction leading to Hematoma and Anemia secondary to Coumadin induced Coagulopathy 03/29 - anemia - stable 03/28 - s/p 4 units of pRBCs - Hgb stable - continue to hold Coumadin for now - ice pack to hematoma 03/27 - required 4 units of pRBCs - two units of FFP - INR is reversed, now 1.0; was initially supratherapeutic - has been falling, unsure why; possibly related to UTI/PNA; infectious - will hold Coumadin for 1-2 days - monitor hematoma, monitor Hgb - will need PT/OT prior to discharge, will likely need placement Paroxysmal A. Fib - continue b-geoff - hold Coumadin - currently NSR Chronic Lymphedema - bilateral leg swelling - doppler negative for DVT b/l - hold Lasix, continue prior to discharge UTI - proteus on culture - continue Levaquin for pneumonia, which should treat the UTI as well DVT ppx - SCDs FULL CODE
[2018-03-31] MEDS: IPRATROPIUM BROMIDE NEB SOLN 0.02% 2.5 ML VIAL INH PRN (13:12)
[2018-03-31] MEDS: LEVALBUTEROL 1.25MG/0.5ML NEB INH PRN (13:12)
[2018-03-31] MEDS: MoRPHine SULFATE 4 MG/ML 1 ML CARP\\VIAL IV PRN ×2 (16:24→21:30)
[2018-03-31] MEDS: LEVOFLOXACIN 750 MG TAB PO SCH (21:28)
[2018-03-31] MEDS: SERTRALINE HCL 100 MG TAB PO SCH (21:28)
[2018-04-01] VITALS (9 sets, daily range): BP systolic 92–115; BP diastolic 58–72; PULSE 63–80; TEMP 36.3–36.7; O2SAT 93–96
[2018-04-01] MEDS: MoRPHine SULFATE 4 MG/ML 1 ML CARP\\VIAL IV PRN ×4 (01:22→21:07)
[2018-04-01 06:24] LABS: BASO % 0.1 %; BASO ABS # 0.01 K/uL (0-0.2); EOS % 0.2 %; EOS ABS # 0.03 K/uL (0-0.5); HEMATOCRIT 35.8 % (42-52); HEMOGLOBIN 10.9 g/dL (14.0-18.0); IG# 0.24 K/uL (0.00-0.02); LYMPH % 4.7 %; LYMPH ABS # 0.75 K/uL (1.2-3.4); MEAN CELL VOLUME 89.7 fL (80-100); MEAN CORPUSCULAR HEMOGLOBIN 27.3 pg (25-34); MEAN CORPUSCULAR HGB CONC 30.4 g/dl (32-36); MEAN PLATELET VOLUME 8.8 fL (7.4-10.4); MONO % 6.5 %; MONO ABS # 1.04 K/uL (0.11-0.59); NEUT ABS # 13.81 K/uL (1.4-6.5); NUCLEATED RED BLOOD CELL ABS 0.03 K/uL (0-0); PLATELET COUNT 200 K/uL (130-400); RED CELL DISTRIBUTION WIDTH CV 16.2 % (11.5-14.5); RED CELL DISTRIBUTION WIDTH SD 51.8 fL (36.4-46.3); WHITE BLOOD COUNT 15.88 K/uL (4.8-10.8)
[2018-04-01 06:43] LABS: CREATININE 0.81 mg/dl (0.60-1.40); POTASSIUM 5.1 mmol/L (3.5-5.1)
[2018-04-01] MEDS: IPRATROPIUM BROMIDE/ALBUTEROL respimat INH INH SCH ×4 (08:38→21:05)
[2018-04-01] MEDS: CEPHALEXIN MONOHYDRATE 500 MG CAP PO SCH (08:38)
[2018-04-01] MEDS: METOPROLOL SUCC 25MG EXT REL TAB PO SCH (08:39)
[2018-04-01] MEDS: LACTOBACILLUS ACIDOPHILUS (FLORANEX) TAB PO SCH (08:39)
--- NOTE | 2018-04-01 09:22 | Progress Note ---
Subjective Date of Service: April 01, 2018. Subjective Pt evaluation today including: conversation w/ patient, physical exam, lab review, review of studies, review of inpatient medication list Saw/examined the patient in room 229 Breathing status improved today Denies chest pain; feeling better; states that morphine helps the breathing Problem List Medical Problems: (1) COPD with acute exacerbation Status: Acute (2) Dehydration Status: Acute (3) Hypoxia Status: Acute (4) Left lower lobe pneumonia Status: Acute (5) Malnutrition Status: Acute (6) Swelling of left extremity Status: Acute (7) Swelling of right extremity Status: Acute Review of Systems Constitutional: No fever, No chills Respiratory: + shortness of breath, + dyspnea on exertion, No cough, No sputum , No wheezing, No dyspnea at rest, No hemoptysis Cardiac: No chest pain Medications Current Inpatient Medications Medications (Trade) Dose Ordered Sig/Denisse Route Start Time Stop Time Status Last Admin Dose Admin Metoprolol Succinate (Toprol Xl Tab) 25 mg DAILY PO 03/26/18 09:00 04/25/18 08:59 04/01/18 08:39 25 MG Sertraline HCl (Zoloft Tab) 100 mg HS PO 03/26/18 21:00 04/25/18 20:59 03/31/18 21:28 100 MG Miscellaneous Information (Order Awaiting Action) 1 ea QS N/A 03/26/18 00:00 04/25/18 00:00 Lactobacillus Acidophilus (Floranex Tab) 1 tab DAILY PO 03/26/18 09:00 04/25/18 08:59 04/01/18 08:39 1 TAB Acetaminophen (Tylenol Tab) 650 mg Q4H PRN PO 03/25/18 22:45 04/24/18 22:44 Nitroglycerin (Nitrostat Tab) 0.4 mg UD PRN SL 03/25/18 22:45 04/24/18 22:44 Tramadol HCl (Ultram Tab) 25 mg Q6H PRN PO 03/25/18 22:45 04/24/18 22:44 03/28/18 01:44 25 MG Prochlorperazine Edisylate 5 mg/ Syringe 5 ml @ 5 mls/min Q6H PRN IV 03/25/18 22:45 04/24/18 22:44 Ipratropium [place] (Atrovent 0.02% 0.5MG/2.5ML Neb) 0.5 mg Q4H PRN INH 03/25/18 23:30 04/24/18 23:29 03/31/18 13:12 0.5 MG Levalbuterol (Xopenex 1.25MG/ 0.5ML Neb) 1.25 mg Q4H PRN INH 03/25/18 23:30 04/24/18 23:29 03/31/18 13:12 1.25 MG Morphine Sulfate (MoRPHine SULFATE INJ) 2 mg Q4 PRN IV 03/28/18 09:30 04/11/18 09:29 04/01/18 08:38 2 MG Cephalexin Monohydrate (Keflex Cap) 500 mg TID PO 03/28/18 15:30 04/07/18 15:29 04/01/18 08:38 500 MG Albuterol/ Ipratropium (Combivent Respimat Inh) 1 puffs QID INH 03/29/18 17:00 04/28/18 16:59 04/01/18 08:38 1 PUFFS Prednisone (PredniSONE TAB) 20 mg BID PO 03/30/18 09:00 04/29/18 08:59 04/01/18 08:40 20 MG Objective Vital Signs Date Time Temp Pulse Resp B/P (MAP) Pulse Ox O2 Delivery O2 Flow Rate FiO2 04/01/18 06:11 36.5 72 18 105/65 (78) 94 Nasal Cannula 4.0 04/01/18 04:00 96 Nasal Cannula 4.0 04/01/18 03:32 36.5 63 18 115/72 (86) 95 Nasal Cannula 4.0 04/01/18 00:00 96 Nasal Cannula 4.0 03/31/18 23:12 36.4 70 22 113/69 (84) 92 Nasal Cannula 3.5 03/31/18 20:00 96 Nasal Cannula 4.0 03/31/18 19:46 78 93/60 (71) 03/31/18 19:45 80 109/69 (82) 03/31/18 19:26 36.7 80 24 91/55 (67) 96 Nasal Cannula 4.0 03/31/18 16:00 Nasal Cannula 4.0 03/31/18 15:39 36.7 77 24 123/74 (90) 93 Nasal Cannula 4.0 03/31/18 13:12 84 18 94 Nasal Cannula 4.0 03/31/18 12:13 36.8 74 18 141/71 (94) 96 03/31/18 12:00 Nasal Cannula 4.0 Physical Exam General Appearance: no apparent distress Respiratory/Chest: no respiratory distress, no accessory muscle use, + decreased breath sounds Cardiovascular: regular rate, rhythm, no edema, no murmur Extremities: + pertinent finding (+2 pitting edema; chronic lymphedematous changes) Neurologic/Psychiatric: no motor/sensory deficits, alert, normal mood/affect Laboratory Results Last 24 Hours Test 04/01/18 05:29 White Blood Count 15.88 K/uL Red Blood Count 3.99 M/uL Hemoglobin 10.9 g/dL Hematocrit 35.8 % Mean Corpuscular Volume 89.7 fL Mean Corpuscular Hemoglobin 27.3 pg Mean Corpuscular Hemoglobin Concent 30.4 g/dl Platelet Count 200 K/uL Mean Platelet Volume 8.8 fL Neutrophils (%) (Auto) 87.0 % Lymphocytes (%) (Auto) 4.7 % Monocytes (%) (Auto) 6.5 % Eosinophils (%) (Auto) 0.2 % Basophils (%) (Auto) 0.1 % Neutrophils # (Auto) 13.81 K/uL Lymphocytes # (Auto) 0.75 K/uL Monocytes # (Auto) 1.04 K/uL Eosinophils # (Auto) 0.03 K/uL Basophils # (Auto) 0.01 K/uL RDW Standard Deviation 51.8 fL RDW Coefficient of Variation 16.2 % Immature Granulocyte % (Auto) 1.5 % Immature Granulocyte # (Auto) 0.24 K/uL Nucleated RBC Absolute Count (auto) 0.03 K/uL Nucleated Red Blood Cells % 0.2 % Sodium Level 137 mmol/L Potassium Level 5.1 mmol/L Chloride Level 99 mmol/L Carbon Dioxide Level 34 mmol/L Anion Gap 4.0 mmol/L Blood Urea Nitrogen 29 mg/dl Creatinine 0.81 mg/dl Est Creatinine Clear Calc Drug Dose 114.6 ml/min Estimated GFR () 109.6 Estimated GFR (Non- 94.6 BUN/Creatinine Ratio 35.1 Random Glucose 108 mg/dl Calcium Level 8.0 mg/dl Assessment and Plan This is a 63 year old male with a past medical history of severe COPD, chronic respiratory failure on 3L of O2 continuously, paroxysmal atrial fibrillation on long-term anticoagulation, chronic lymphedema - presents with worsening shortness of breath, multiple falls, hematoma, anemia Acute on Chronic Hypoxic Respiratory Failure Acute COPD Exacerbation secondary to LLL Pneumonia 04/01 - continue Combivent - stopped abx. - morphine PRN - continue PT/OT - SNF discharge 03/31 - will likely d/c abx. in 1-2 days, taper down prednisone in AM - continue PT/OT - plan for SNF discharge on Monday - DNR status, likely hospice transition afterwards - discontinue Coumadin 03/30 - plan to d/c to SNF - transition to prednisone 20mg BID - transition to hospice afterwards - current DNR status 03/29 - appreciate pulmonary input - Daliresp added - will consult palliative care for goals of care, code status, and possible home hospice - may need rehab prior to discharge 03/28 - patient with worsening respiratory condition; +accessory muscle use, breathing with pursed lips, +respiratory distress - will change oral prednisone to IV solu-medrol - continue nebulizers: Xopenex/Ipratropium - continue Levaquin for pneumonia - baseline O2 of 3L; only saturating well at rest 03/27 - Chest CT - LLL Pneumonia - +wheezing, +shortness of breath - chronically on 3L of O2 - worsening shortness of breath; +accessory muscles, +respiratory distress - will use prednisone 40mg x5 days - will use Levaquin for pneumonia and COPD exacerbation - nebulizers as needed Multiple Falls/Ambulatory Dysfunction leading to Hematoma and Anemia secondary to Coumadin induced Coagulopathy 04/01 - continue PT/OT - d/c Coumadin - Hgb stable 03/29 - anemia - stable 03/28 - s/p 4 units of pRBCs - Hgb stable - continue to hold Coumadin for now - ice pack to hematoma 03/27 - required 4 units of pRBCs - two units of FFP - INR is reversed, now 1.0; was initially supratherapeutic - has been falling, unsure why; possibly related to UTI/PNA; infectious - will hold Coumadin for 1-2 days - monitor hematoma, monitor Hgb - will need PT/OT prior to discharge, will likely need placement Paroxysmal A. Fib - continue b-geoff - hold Coumadin - currently NSR Chronic Lymphedema - bilateral leg swelling - doppler negative for DVT b/l - hold Lasix, continue prior to discharge UTI - proteus on culture - continue Levaquin for pneumonia, which should treat the UTI as well DVT ppx - SCDs FULL CODE
[2018-04-01] MEDS: SERTRALINE HCL 100 MG TAB PO SCH (21:05)
[2018-04-02] VITALS (9 sets, daily range): BP systolic 85–114; BP diastolic 58–75; PULSE 66–81; TEMP 36.4–36.8; O2SAT 93–98
[2018-04-02] MEDS: MoRPHine SULFATE 4 MG/ML 1 ML CARP\\VIAL IV PRN ×3 (03:23→20:36)
[2018-04-02] MEDS: LACTOBACILLUS ACIDOPHILUS (FLORANEX) TAB PO SCH (07:37)
[2018-04-02] MEDS: IPRATROPIUM BROMIDE/ALBUTEROL respimat INH INH SCH ×4 (07:37→20:18)
[2018-04-02] MEDS: METOPROLOL SUCC 25MG EXT REL TAB PO SCH (07:37)
--- NOTE | 2018-04-02 13:27 | Progress Note ---
Subjective Date of Service: April 02, 2018. Subjective Pt evaluation today including: conversation w/ patient, physical exam, lab review, review of studies, review of inpatient medication list Saw/examined the patient in room 229 Denies any problems/issues R hip pain is controlled Breathing at baseline Problem List Medical Problems: (1) COPD with acute exacerbation Status: Acute (2) Dehydration Status: Acute (3) Hypoxia Status: Acute (4) Left lower lobe pneumonia Status: Acute (5) Malnutrition Status: Acute (6) Swelling of left extremity Status: Acute (7) Swelling of right extremity Status: Acute Review of Systems Constitutional: No fever, No chills, No weakness Respiratory: + cough, + wheezing, + shortness of breath, + dyspnea on exertion , No sputum, No dyspnea at rest, No hemoptysis Cardiac: + edema, No chest pain, No palpitations Medications Current Inpatient Medications Medications (Trade) Dose Ordered Sig/Denisse Route Start Time Stop Time Status Last Admin Dose Admin Metoprolol Succinate (Toprol Xl Tab) 25 mg DAILY PO 03/26/18 09:00 04/25/18 08:59 04/02/18 07:37 25 MG Sertraline HCl (Zoloft Tab) 100 mg HS PO 03/26/18 21:00 04/25/18 20:59 04/01/18 21:05 100 MG Miscellaneous Information (Order Awaiting Action) 1 ea QS N/A 03/26/18 00:00 04/25/18 00:00 Lactobacillus Acidophilus (Floranex Tab) 1 tab DAILY PO 03/26/18 09:00 04/25/18 08:59 04/02/18 07:37 1 TAB Acetaminophen (Tylenol Tab) 650 mg Q4H PRN PO 03/25/18 22:45 04/24/18 22:44 Nitroglycerin (Nitrostat Tab) 0.4 mg UD PRN SL 03/25/18 22:45 04/24/18 22:44 Tramadol HCl (Ultram Tab) 25 mg Q6H PRN PO 03/25/18 22:45 04/24/18 22:44 03/28/18 01:44 25 MG Prochlorperazine Edisylate 5 mg/ Syringe 5 ml @ 5 mls/min Q6H PRN IV 03/25/18 22:45 04/24/18 22:44 Ipratropium [place] (Atrovent 0.02% 0.5MG/2.5ML Neb) 0.5 mg Q4H PRN INH 03/25/18 23:30 04/24/18 23:29 03/31/18 13:12 0.5 MG Levalbuterol (Xopenex 1.25MG/ 0.5ML Neb) 1.25 mg Q4H PRN INH 03/25/18 23:30 04/24/18 23:29 03/31/18 13:12 1.25 MG Albuterol/ Ipratropium (Combivent Respimat Inh) 1 puffs QID INH 03/29/18 17:00 04/28/18 16:59 04/02/18 07:37 1 PUFFS Morphine Sulfate (MoRPHine SULFATE INJ) 1 mg Q4 PRN IV 04/01/18 09:30 04/11/18 09:29 04/02/18 07:37 1 MG Prednisone (PredniSONE TAB) 20 mg QAM PO 04/02/18 09:00 04/29/18 08:59 04/02/18 07:37 20 MG Objective Vital Signs Date Time Temp Pulse Resp B/P (MAP) Pulse Ox O2 Delivery O2 Flow Rate FiO2 04/02/18 11:45 Nasal Cannula 4.0 04/02/18 11:38 36.4 74 18 93/60 (71) 97 04/02/18 07:45 Nasal Cannula 4.0 04/02/18 07:08 36.5 70 18 102/65 (77) 93 04/02/18 04:00 96 Nasal Cannula 3.5 04/02/18 03:18 36.5 72 16 103/73 (83) 96 Nasal Cannula 3.5 04/02/18 00:01 96 Nasal Cannula 3.0 04/01/18 23:45 36.6 69 18 98/64 (75) 96 Nasal Cannula 04/01/18 20:00 96 Nasal Cannula 3.0 04/01/18 19:26 36.5 70 26 95/65 (75) 96 Nasal Cannula 3.0 04/01/18 16:00 Nasal Cannula 4.0 04/01/18 15:17 36.3 78 24 100/64 (76) 93 Nasal Cannula 4.0 Physical Exam General Appearance: no apparent distress Respiratory/Chest: no respiratory distress, no accessory muscle use, + decreased breath sounds Cardiovascular: regular rate, rhythm, no murmur Extremities: + pertinent finding (chronic lymphedema, ) Assessment and Plan This is a 63 year old male with a past medical history of severe COPD, chronic respiratory failure on 3L of O2 continuously, paroxysmal atrial fibrillation on long-term anticoagulation, chronic lymphedema - presents with worsening shortness of breath, multiple falls, hematoma, anemia Acute on Chronic Hypoxic Respiratory Failure Acute COPD Exacerbation secondary to LLL Pneumonia 04/02 - continue Combivent, morphine PRN - continue PT/OT; will need SNF discharge 04/01 - continue Combivent - stopped abx. - morphine PRN - continue PT/OT - SNF discharge 03/31 - will likely d/c abx. in 1-2 days, taper down prednisone in AM - continue PT/OT - plan for SNF discharge on Monday - DNR status, likely hospice transition afterwards - discontinue Coumadin 03/30 - plan to d/c to SNF - transition to prednisone 20mg BID - transition to hospice afterwards - current DNR status 03/29 - appreciate pulmonary input - Daliresp added - will consult palliative care for goals of care, code status, and possible home hospice - may need rehab prior to discharge 03/28 - patient with worsening respiratory condition; +accessory muscle use, breathing with pursed lips, +respiratory distress - will change oral prednisone to IV solu-medrol - continue nebulizers: Xopenex/Ipratropium - continue Levaquin for pneumonia - baseline O2 of 3L; only saturating well at rest 03/27 - Chest CT - LLL Pneumonia - +wheezing, +shortness of breath - chronically on 3L of O2 - worsening shortness of breath; +accessory muscles, +respiratory distress - will use prednisone 40mg x5 days - will use Levaquin for pneumonia and COPD exacerbation - nebulizers as needed Multiple Falls/Ambulatory Dysfunction leading to Hematoma and Anemia secondary to Coumadin induced Coagulopathy 04/01 - continue PT/OT - d/c Coumadin - Hgb stable 03/29 - anemia - stable 03/28 - s/p 4 units of pRBCs - Hgb stable - continue to hold Coumadin for now - ice pack to hematoma 03/27 - required 4 units of pRBCs - two units of FFP - INR is reversed, now 1.0; was initially supratherapeutic - has been falling, unsure why; possibly related to UTI/PNA; infectious - will hold Coumadin for 1-2 days - monitor hematoma, monitor Hgb - will need PT/OT prior to discharge, will likely need placement Paroxysmal A. Fib - continue b-geoff - hold Coumadin - currently NSR Chronic Lymphedema - bilateral leg swelling - doppler negative for DVT b/l - hold Lasix, continue prior to discharge UTI - proteus on culture - continue Levaquin for pneumonia, which should treat the UTI as well DVT ppx - SCDs FULL CODE
[2018-04-02] MEDS: SERTRALINE HCL 100 MG TAB PO SCH (20:19)
[2018-04-03] VITALS (7 sets, daily range): BP systolic 100–122; BP diastolic 66–76; PULSE 63–85; TEMP 36.4–36.8; O2SAT 93–96
[2018-04-03] MEDS: MoRPHine SULFATE 4 MG/ML 1 ML CARP\\VIAL IV PRN ×3 (00:29→20:55)
[2018-04-03] MEDS: METOPROLOL SUCC 25MG EXT REL TAB PO SCH (07:30)
[2018-04-03] MEDS: LACTOBACILLUS ACIDOPHILUS (FLORANEX) TAB PO SCH (07:31)
[2018-04-03] MEDS: IPRATROPIUM BROMIDE/ALBUTEROL respimat INH INH SCH ×4 (07:32→20:51)
--- NOTE | 2018-04-03 12:16 | Progress Note ---
Subjective Date of Service: April 03, 2018. Subjective Pt evaluation today including: conversation w/ patient, physical exam, lab review, review of studies, review of inpatient medication list Saw/examined the patient in room 229 He's doing okay, some shortness of breath persists Denies chest pain/palpitations Swelling of legs improving Problem List Medical Problems: (1) COPD with acute exacerbation Status: Acute (2) Dehydration Status: Acute (3) Hypoxia Status: Acute (4) Left lower lobe pneumonia Status: Acute (5) Malnutrition Status: Acute (6) Swelling of left extremity Status: Acute (7) Swelling of right extremity Status: Acute Review of Systems Constitutional: No fever, No chills Respiratory: + cough, + shortness of breath, + dyspnea on exertion, + dyspnea at rest, No sputum, No wheezing, No hemoptysis Cardiac: No chest pain, No edema, No palpitations Medications Current Inpatient Medications Medications (Trade) Dose Ordered Sig/Denisse Route Start Time Stop Time Status Last Admin Dose Admin Metoprolol Succinate (Toprol Xl Tab) 25 mg DAILY PO 03/26/18 09:00 04/25/18 08:59 04/03/18 07:30 25 MG Sertraline HCl (Zoloft Tab) 100 mg HS PO 03/26/18 21:00 04/25/18 20:59 04/02/18 20:19 100 MG Miscellaneous Information (Order Awaiting Action) 1 ea QS N/A 03/26/18 00:00 04/25/18 00:00 Lactobacillus Acidophilus (Floranex Tab) 1 tab DAILY PO 03/26/18 09:00 04/25/18 08:59 04/03/18 07:31 1 TAB Acetaminophen (Tylenol Tab) 650 mg Q4H PRN PO 03/25/18 22:45 04/24/18 22:44 Nitroglycerin (Nitrostat Tab) 0.4 mg UD PRN SL 03/25/18 22:45 04/24/18 22:44 Tramadol HCl (Ultram Tab) 25 mg Q6H PRN PO 03/25/18 22:45 04/24/18 22:44 03/28/18 01:44 25 MG Prochlorperazine Edisylate 5 mg/ Syringe 5 ml @ 5 mls/min Q6H PRN IV 03/25/18 22:45 04/24/18 22:44 Ipratropium [place] (Atrovent 0.02% 0.5MG/2.5ML Neb) 0.5 mg Q4H PRN INH 03/25/18 23:30 04/24/18 23:29 03/31/18 13:12 0.5 MG Levalbuterol (Xopenex 1.25MG/ 0.5ML Neb) 1.25 mg Q4H PRN INH 03/25/18 23:30 04/24/18 23:29 03/31/18 13:12 1.25 MG Albuterol/ Ipratropium (Combivent Respimat Inh) 1 puffs QID INH 03/29/18 17:00 04/28/18 16:59 04/03/18 07:32 1 PUFFS Morphine Sulfate (MoRPHine SULFATE INJ) 1 mg Q4 PRN IV 04/01/18 09:30 04/11/18 09:29 04/03/18 00:29 1 MG Prednisone (PredniSONE TAB) 20 mg QAM PO 04/02/18 09:00 04/29/18 08:59 04/03/18 07:31 20 MG Objective Vital Signs Date Time Temp Pulse Resp B/P (MAP) Pulse Ox O2 Delivery O2 Flow Rate FiO2 04/03/18 11:20 36.4 68 18 107/76 (86) 96 04/03/18 07:58 Nasal Cannula 4.0 04/03/18 06:37 36.5 65 19 109/71 (84) 93 Nasal Cannula 4.0 04/03/18 04:00 Nasal Cannula 4.0 04/03/18 03:31 36.4 63 19 110/72 (85) 96 Nasal Cannula 4.0 04/03/18 00:00 Nasal Cannula 4.0 04/02/18 23:27 36.8 69 21 107/68 (81) 97 Nasal Cannula 4.0 04/02/18 20:21 81 100/69 (79) 04/02/18 20:00 Nasal Cannula 4.0 04/02/18 19:11 36.6 66 22 95/61 (72) 97 Nasal Cannula 5.0 04/02/18 16:00 Nasal Cannula 4.0 04/02/18 15:20 36.7 69 20 114/75 (88) 98 Nasal Cannula 4.0 Physical Exam General Appearance: + mild distress Respiratory/Chest: + respiratory distress, + decreased breath sounds, + accessory muscle use Cardiovascular: regular rate, rhythm, no edema, no murmur Extremities: + pertinent finding (venous stasis dermatitis; swelling improving) Assessment and Plan This is a 63 year old male with a past medical history of severe COPD, chronic respiratory failure on 3L of O2 continuously, paroxysmal atrial fibrillation on long-term anticoagulation, chronic lymphedema - presents with worsening shortness of breath, multiple falls, hematoma, anemia Acute on Chronic Hypoxic Respiratory Failure Acute COPD Exacerbation secondary to LLL Pneumonia 04/03 - will d/c to SNF when okay with CM - will likely need low dose Roxanol PRN for breathing - continue Combivent - d/c Coumadin completely - DNR status 04/02 - continue Combivent, morphine PRN - continue PT/OT; will need SNF discharge 04/01 - continue Combivent - stopped abx. - morphine PRN - continue PT/OT - SNF discharge 03/31 - will likely d/c abx. in 1-2 days, taper down prednisone in AM - continue PT/OT - plan for SNF discharge on Monday - DNR status, likely hospice transition afterwards - discontinue Coumadin 03/30 - plan to d/c to SNF - transition to prednisone 20mg BID - transition to hospice afterwards - current DNR status 03/29 - appreciate pulmonary input - Daliresp added - will consult palliative care for goals of care, code status, and possible home hospice - may need rehab prior to discharge 03/28 - patient with worsening respiratory condition; +accessory muscle use, breathing with pursed lips, +respiratory distress - will change oral prednisone to IV solu-medrol - continue nebulizers: Xopenex/Ipratropium - continue Levaquin for pneumonia - baseline O2 of 3L; only saturating well at rest 03/27 - Chest CT - LLL Pneumonia - +wheezing, +shortness of breath - chronically on 3L of O2 - worsening shortness of breath; +accessory muscles, +respiratory distress - will use prednisone 40mg x5 days - will use Levaquin for pneumonia and COPD exacerbation - nebulizers as needed Multiple Falls/Ambulatory Dysfunction leading to Hematoma and Anemia secondary to Coumadin induced Coagulopathy 04/01 - continue PT/OT - d/c Coumadin - Hgb stable 03/29 - anemia - stable 03/28 - s/p 4 units of pRBCs - Hgb stable - continue to hold Coumadin for now - ice pack to hematoma 03/27 - required 4 units of pRBCs - two units of FFP - INR is reversed, now 1.0; was initially supratherapeutic - has been falling, unsure why; possibly related to UTI/PNA; infectious - will hold Coumadin for 1-2 days - monitor hematoma, monitor Hgb - will need PT/OT prior to discharge, will likely need placement Paroxysmal A. Fib - continue b-geoff - hold Coumadin - currently NSR Chronic Lymphedema - bilateral leg swelling - doppler negative for DVT b/l - hold Lasix, continue prior to discharge UTI - proteus on culture - continue Levaquin for pneumonia, which should treat the UTI as well DVT ppx - SCDs FULL CODE Discharge planning: care home facility
[2018-04-03] MEDS ORDERED: PRD20 PO (12:25)
[2018-04-03] MEDS ORDERED: OXYC10SO PO ×2 (12:25→12:36)
[2018-04-03] MEDS ORDERED: ATV5X PO ×2 (12:25→12:36)
--- NOTE | 2018-04-03 12:28 | Discharge Instructions ---
Discharge Instructions Date of Service April 03, 2018. Admission Reason for Admission: Respiratory Failure, Acute Discharge Discharge Diagnosis / Problem: End Stage COPD Discharge Goals Goal(s): Decrease discomfort, Improve function, Diagnostic testing, Therapeutic intervention Activity Recommendations Activity Limitations: resume your previous activity . Instructions / Follow-Up Instructions / Follow-Up Please follow-up with your primary care physician You will be discharged to [facility]; likely transition to hospice Continue oxygen use, nebulizer use for breathing, you will be on prednisone 20mg for a few days; and then likely transition to 10mg before finally stopping You will be given Roxanol (morphine) SL - use this for comfort/shortness of breath/pain, etc. Current Hospital Diet Patient's current hospital diet: AHA Diet (Heart Healthy), Low Lactose Diet Discharge Diet Recommended Diet: AHA Diet (Heart Healthy) Pending Studies Studies pending at discharge: no Medical Emergencies . Who to Call and When: Medical Emergencies: If at any time you feel your situation is an emergency, please call 911 immediately. . Non-Emergent Contact Non-Emergency issues call your: Primary Care Provider . . "Provider Documentation" section prepared by Jaida Thakkar. .
--- NOTE | 2018-04-03 12:30 | Discharge Summary ---
Discharge Summary Date of Service April 03, 2018. Discharge Summary Admission Date: March 25, 2018 at 21:43 Discharge Date: April 03, 2018 Discharge Disposition: senior care facility Principal Diagnosis: Acute on Chronic Hypoxic Respiratory Failure Acute COPD Exacerbation secondary to LLL Pneumonia Multiple Falls/Ambulatory Dysfunction leading to Hematoma and Anemia secondary to Coumadin induced Coagulopathy Paroxysmal A. Fib Chronic Lymphedema UTI Medication Reconciliation New Medications: Oxycodone Oral Soln (Roxicodone Oral Soln) 5 Mg/5 Ml Soln 5 MG PO TID for 5 Days, #75 ML Prednisone (Prednisone) 20 Mg Tab 20 MG PO QAM for 3 Days, #3 TAB Continued Medications: Azithromycin (Azithromycin) 250 Mg Tab 250 MG PO DIRECTED *COPD RESCUE KIT* Desloratadine (Desloratadine) 5 Mg Tab 5 MG PO QAM Home O2 Therapy (Oxygen) Gas 2 LITERS NA CONTINOUS Ipratropium-Albuterol (Combivent Respimat) 1 Aer Aer 1 PUFF INH QID PRN for Cough/SOB or Wheezing, INH Ipratropium-Albuterol (Duoneb) 3 Ml Nebu 1 TREATMENT INH TID PRN for SOB/Wheezing, INHA Lorazepam (Lorazepam) 0.5 Mg Tab 0.5 MG PO TID PRN for Anxiety/Shortness Of Breath for 3 Days, #9 TABS (This prescription has been renewed) Metoprolol Succinate (Metoprolol Succinate ER) 25 Mg Tabcr 25 MG PO DAILY Nitroglycerin (Nitrostat) 0.4 Mg Tab 0.4 MG UT PRN, BTL PLACE UNDER TONGUE EVERY 5 MINUTES NEEDED Prednisone (Prednisone) 20 Mg Tab 40 MG PO DIRECTED PRN for COPD, TAB *COPD RESCUE KIT* Probiotic Product (Probiotic) 1 Tab Tab 1 TAB PO DAILY Sertraline (Zoloft) 100 Mg Tab 100 MG PO HS, TAB Umeclidinium-Vilanterol (Anoro Ellipta 62.5-25 Mcg/INH) 1 Aer Aer 1 PUFF INH QAM Discontinued Medications: Diltiazem HCl (Diltiazem HCl) 30 Mg Tab 30 MG PO TID Furosemide (Lasix) 40 Mg Tab 40 MG PO DAILY Potassium Chloride (Potassium Chloride Er) 10 Meq Tab 10 MEQ PO DAILY, TAB Warfarin Sod (Jantoven) 1 Mg Tab 0.5 MG PO DAILY TAKE WITH 3MG TAB, TOTAL DOSE 3.5MG DAILY Warfarin Sod (Jantoven) 3 Mg Tab 3 MG PO DAILY TAKE WITH 0.5MG TAB, TOTAL DOSE 3.5MG DAILY Admission Information HPI (per Admitting provider): DATE OF ADMISSION: 03/25/2018 PRIMARY CARE DOCTOR: Uriel Jiménez MD. CHIEF COMPLAINT: Shortness of breath. HISTORY OF PRESENT ILLNESS: History obtained from patient and records. Medical history significant for chronic respiratory failure secondary to COPD on home O2, PAFib on Coumadin, history of pneumothorax as per records, past tobacco abuse, asbestos exposure, chronic LE lymphedema. Chronic anemia (baseline hemoglobin 10) Recent confinement in November 2017 for cellulitis and healthcare-associated pneumonia. Last 2 days, patient had been feeling well, more short of breath than usual. Increasing shortness of breath, cough productive of yellow sputum. Unknown sick contacts. Denies bladder discomfort. Denies aspiration. Initial azithromycin and prednisone tab taken at home from rescue kit. He fell on his left side, achy bottom, loose stools noted, nonbloody. Patient denies headache, chest pain. Increase LE swelling. At the Emergency Room, patient given Levaquin for pneumonia. INR was noted to be greater than 10. Given vitamin K. MEDICAL HISTORY: As above. A 2D echo from October of 2017 showed EF 55%, no pulmonary hypertension, no significant valvular disease. 2014 colonoscopy showed polyps and diverticulosis and internal hemorrhoids. SURGICAL HISTORY: Hernia repair, knee surgery, cholecystectomy. MEDICATIONS: Home meds azithromycin/prednisone rescue kit, loratadine, diltiazem, furosemide, oxygen, Combivent, DuoNeb, lorazepam, metoprolol, Nitrostat, probiotic, Zoloft, Ellipta , Coumadin. ALLERGIES: PIPERACILLIN. FAMILY HISTORY: There is a family history of lung disease, stroke. PERSONAL AND SOCIAL HISTORY: Past tobacco use. No chronic intake of alcoholic beverages. Former work with [employer]. REVIEW OF SYSTEMS: As per HPI, all 10 systems reviewed. All other ROS negative. PHYSICAL EXAMINATION: VITAL SIGNS: Blood pressure was noted to be 104/73, heart rate 95, pulse rate 86, RR 22, temperature 36.7, O2 sats 96 on 2.5. GENERAL: Noted to be chronically ill, no respiratory distress. SKIN: Pallor, warm. HEENT: Pale palpebral conjunctivae. No ptosis. Dry mucosa. Bespectacled. Nasal cannula in place. NECK: Supple, nontender. CHEST: Decreased breath sounds. No wheezes. HEART: Regular rate and rhythm. No murmur. ABDOMEN: Some distention, nontender. BACK: Ecchymosis on the left buttock, L hip lumbosacral area RECTAL: Intact sphincter, yellow stool, heme positive. EXTREMITIES: Bilateral lower extremity lymphedema. No tenderness. NEUROLOGIC: Coherent, occasionally sleepy. No facial asymmetry, gait and stance not assessed. LABORATORY DATA: Hemoglobin was noted to be 6, hematocrit 19.8, white cell count was 20, platelets noted to be 270. Sodium 138, potassium 4.4, chloride 105, CO2 of 24, BUN 37, creatinine 1.48. Glucose was noted to be 102. INR noted to be greater 10. ABG, pH 7.38, pCO2 of 47, pO2 of [address] head, no acute pathology. Cervical spine CT intervertebral disc space narrowing most pronounced at C4-C5, ill-defined lucent lesion T1 vertebral body. Chest CT, ground-glass consolidation, basal left upper lobe lingula suggesting pneumonia, severe bullous emphysematous disease with bilateral bronchial wall thickening suggesting bronchitis. No bowel obstruction, possible cystitis, partially imaged subcutaneous hematoma on left hip, no fracture. EKG as per my interpretation, rate 85, normal sinus rhythm, low voltage. ASSESSMENT: 1. [id number] hypoxemic respiratory failure secondary to chronic obstructive pulmonary disease exacerbation secondary to community acquired pneumonia Failed outpatient treatment possible sepsis 2. [id number] anemia progressive hemoglobin drop from baseline of 12 from last year Marked drop likely secondary to traumatic pelvic contusion, hematoma in the setting of Coumadin coagulopathy Occult GI bleed (likely diverticular) possibly contributory 3. PAF, on Coumadin. NSR, INR supratherapeutic. 4. HTN, BP on the lower side 5. chronic lymphedema. Patient complaining of increase LE swelling rule out DVT 6. diarrhea ro C. diff. 7. Past tobacco abuse. PLAN: PCU supplemental O2. Levaquin, Solu-Medrol, nebs RTC p.r.n. May need Pulmonary consult for COPD exacerbation if without improvement. Coumadin coagulopathy reversal with vitamin K and FFP. Transfuse packed RBC to maintain hemoglobin greater than 7 and/or for symptomatic anemia Appropriate to hold Coumadin for now given traumatic hematoma leading to severe anemia. Will need to reevaluate eligibility for continued home Rx for Coumadin pending PT OT evaluation given functional disability/fall risk.. LE venous Dopplers rule out DVT stool C. diff. DVT prophylaxis, SCDs while patient off Coumadin while INR less than 2. Full code. Total critical care time was 45 minutes. Hospital Course This is a 63 year old male with a past medical history of severe COPD, chronic respiratory failure on 3L of O2 continuously, paroxysmal atrial fibrillation on long-term anticoagulation, chronic lymphedema - presents with worsening shortness of breath, multiple falls, hematoma, anemia Acute on Chronic Hypoxic Respiratory Failure Acute COPD Exacerbation secondary to LLL Pneumonia 04/03 - will d/c to SNF when okay with CM - will likely need low dose Roxanol PRN for breathing - continue Combivent - d/c Coumadin completely - DNR status 04/02 - continue Combivent, morphine PRN - continue PT/OT; will need SNF discharge 04/01 - continue Combivent - stopped abx. - morphine PRN - continue PT/OT - SNF discharge 03/31 - will likely d/c abx. in 1-2 days, taper down prednisone in AM - continue PT/OT - plan for SNF discharge on Monday - DNR status, likely hospice transition afterwards - discontinue Coumadin 03/30 - plan to d/c to SNF - transition to prednisone 20mg BID - transition to hospice afterwards - current DNR status 03/29 - appreciate pulmonary input - Daliresp added - will consult palliative care for goals of care, code status, and possible home hospice - may need rehab prior to discharge 03/28 - patient with worsening respiratory condition; +accessory muscle use, breathing with pursed lips, +respiratory distress - will change oral prednisone to IV solu-medrol - continue nebulizers: Xopenex/Ipratropium - continue Levaquin for pneumonia - baseline O2 of 3L; only saturating well at rest 03/27 - Chest CT - LLL Pneumonia - +wheezing, +shortness of breath - chronically on 3L of O2 - worsening shortness of breath; +accessory muscles, +respiratory distress - will use prednisone 40mg x5 days - will use Levaquin for pneumonia and COPD exacerbation - nebulizers as needed Multiple Falls/Ambulatory Dysfunction leading to Hematoma and Anemia secondary to Coumadin induced Coagulopathy 04/01 - continue PT/OT - d/c Coumadin - Hgb stable 03/29 - anemia - stable 03/28 - s/p 4 units of pRBCs - Hgb stable - continue to hold Coumadin for now - ice pack to hematoma 03/27 - required 4 units of pRBCs - two units of FFP - INR is reversed, now 1.0; was initially supratherapeutic - has been falling, unsure why; possibly related to UTI/PNA; infectious - will hold Coumadin for 1-2 days - monitor hematoma, monitor Hgb - will need PT/OT prior to discharge, will likely need placement Paroxysmal A. Fib - continue b-geoff - hold Coumadin - currently NSR Chronic Lymphedema - bilateral leg swelling - doppler negative for DVT b/l - hold Lasix, continue prior to discharge UTI - proteus on culture - continue Levaquin for pneumonia, which should treat the UTI as well DVT ppx - SCDs FULL CODE Discharge planning: [facility] Total time spent on discharge = 50 minutes This includes examination of the patient, discharge planning, medication reconciliation, and communication with other providers. Discharge Instructions Please follow-up with your primary care physician You will be discharged to [facility]; likely transition to hospice Continue oxygen use, nebulizer use for breathing, you will be on prednisone 20mg for a few days; and then likely transition to 10mg before finally stopping You will be given Roxanol (morphine) SL - use this for comfort/shortness of breath/pain, etc.
[2018-04-03] MEDS: SERTRALINE HCL 100 MG TAB PO SCH (20:51)
[2018-04-04] VITALS (7 sets, daily range): BP systolic 116–123; BP diastolic 75–79; PULSE 65–72; TEMP 36.5–36.8; O2SAT 92–96
[2018-04-04] MEDS: IPRATROPIUM BROMIDE/ALBUTEROL respimat INH INH SCH ×2 (08:04→14:14)
[2018-04-04] MEDS: METOPROLOL SUCC 25MG EXT REL TAB PO SCH (08:05)
[2018-04-04] MEDS: LACTOBACILLUS ACIDOPHILUS (FLORANEX) TAB PO SCH (08:05)
[2018-04-04] MEDS: MoRPHine SULFATE 4 MG/ML 1 ML CARP\\VIAL IV PRN (08:13)
--- NOTE | 2018-04-04 13:03 | Progress Note ---
Internal Med Progress Note Date of Service: April 04, 2018. Provider Documentation: Subjective: Patient denies acute concerns. Continues to be on nasal cannula as per usual. Reports that he is pleased that his legs are not swollen Physical Exam General Appearance: no distress Respiratory/Chest: good air entry. No wheezing. No use of accessory muscles. On nasal cannula Cardiovascular: regular rate, rhythm, no edema, no murmur Abdomen: soft, nontender, + bowel sounds Extremities: chronic lower extremity skin changes but no swelling of lower extremities ASSESSMENT & PLAN: Hospital Course and Discharge plans This is a 63 year old male with a past medical history of severe COPD, chronic respiratory failure on 3L of O2 continuously, paroxysmal atrial fibrillation on long-term anticoagulation, chronic lymphedema - presents with worsening shortness of breath, multiple falls, hematoma, anemia Acute on Chronic Hypoxic Respiratory Failure Acute COPD Exacerbation secondary to LLL Pneumonia 04/04/18 no acute changes in health -discharge to [facility] 04/03/18 - will d/c to SNF when okay with CM - will likely need low dose Roxanol PRN for breathing - continue Combivent - d/c Coumadin completely - DNR status 04/02 - continue Combivent, morphine PRN - continue PT/OT; will need SNF discharge 04/01 - continue Combivent - stopped abx. - morphine PRN - continue PT/OT - SNF discharge 03/31 - will likely d/c abx. in 1-2 days, taper down prednisone in AM - continue PT/OT - plan for SNF discharge on Monday - DNR status, likely hospice transition afterwards - discontinue Coumadin 03/30 - plan to d/c to SNF - transition to prednisone 20mg BID - transition to hospice afterwards - current DNR status 03/29 - appreciate pulmonary input - Daliresp added - will consult palliative care for goals of care, code status, and possible home hospice - may need rehab prior to discharge 03/28 - patient with worsening respiratory condition; +accessory muscle use, breathing with pursed lips, +respiratory distress - will change oral prednisone to IV solu-medrol - continue nebulizers: Xopenex/Ipratropium - continue Levaquin for pneumonia - baseline O2 of 3L; only saturating well at rest 03/27 - Chest CT - LLL Pneumonia - +wheezing, +shortness of breath - chronically on 3L of O2 - worsening shortness of breath; +accessory muscles, +respiratory distress - will use prednisone 40mg x5 days - will use Levaquin for pneumonia and COPD exacerbation - nebulizers as needed Multiple Falls/Ambulatory Dysfunction leading to Hematoma and Anemia secondary to Coumadin induced Coagulopathy 04/01 - continue PT/OT - d/c Coumadin - Hgb stable 03/29 - anemia - stable 03/28 - s/p 4 units of pRBCs - Hgb stable - continue to hold Coumadin for now - ice pack to hematoma 03/27 - required 4 units of pRBCs - two units of FFP - INR is reversed, now 1.0; was initially supratherapeutic - has been falling, unsure why; possibly related to UTI/PNA; infectious - will hold Coumadin for 1-2 days - monitor hematoma, monitor Hgb - will need PT/OT prior to discharge, will likely need placement Paroxysmal A. Fib - continue beta geoff - coumadin had been discontinued as above Chronic Lymphedema - bilateral leg swelling resolved - doppler negative for DVT b/l -re-evaluate for Lasix as needed as outpatient UTI - proteus on culture 1. PROTEUS MIRABILIS Target Route Dose RX AB Cost M.I.C. IQ ------ ----- ------ -- ------ -------- - ------ TRIMET/SULFA S <=2/38 AMPICILLIN S <=8 AMPICILLIN/SUL S <=8/4 CEFAZOLIN S <=8 CEFOXITIN S <=8 CEFOTAXIME S <=2 CEFTRIAXONE S <=1 CEFEPIME S <=4 CEFUROXIME S <=4 GENTAMICIN S <=4 TOBRAMYCIN I 8 AMIKACIN S <=16 CIPROFLOXACIN R >2 LEVOFLOXACIN R >4 ERTAPENEM S <=1 PIP/TAZO S <=16 - was treated with Levaquin for pneumonia and UTI Discharge planning: discharge to [facility] Discharge diagnosis Acute on Chronic Hypoxic Respiratory Failure Acute COPD Exacerbation secondary to LLL Pneumonia Multiple Falls/Ambulatory Dysfunction leading to Hematoma and Anemia secondary to Coumadin induced Coagulopathy Paroxysmal A. Fib Chronic Lymphedema UTI Vital Signs: Date Time Temp Pulse Resp B/P (MAP) Pulse Ox O2 Delivery O2 Flow Rate FiO2 04/04/18 12:07 36.8 66 16 121/79 (93) 92 Nasal Cannula 4.0 04/04/18 12:00 95 Nasal Cannula 4.0 04/04/18 08:00 93 Nasal Cannula 4.0 04/04/18 08:00 36.5 65 16 116/75 (89) 95 Nasal Cannula 4.0 04/04/18 04:04 36.8 72 22 123/77 (92) 94 Nasal Cannula 4.0 04/04/18 04:00 96 Nasal Cannula 4.0 04/04/18 00:01 96 Nasal Cannula 4.0 04/03/18 23:15 36.8 66 18 106/67 (80) 96 Nasal Cannula 4.0 04/03/18 20:00 Nasal Cannula 4.0 04/03/18 18:58 36.7 69 22 100/66 (77) 94 Nasal Cannula 4.0 04/03/18 16:00 Nasal Cannula 4.0 04/03/18 15:11 36.6 85 19 122/76 (91) 93 Nasal Cannula 4.0
== END 2018-04-04 15:32 | DRG 813 ==
LOC: EDBD 18:26 → C.EDC 18:27 → C.2T 21:43 → ENRESERV 21:53
PROVIDERS: ADMIT Internal Medicine; ATTEND Hospitalist
DX: D68.32 Hemorrhagic disorder due to extrinsic circulating anticoagulants (principal); J18.1 Lobar pneumonia, unspecified organism; J96.21 Acute and chronic respiratory failure with hypoxia; J44.0 Chronic obstructive pulmonary disease with (acute) lower respiratory infection; J44.1 Chronic obstructive pulmonary disease with (acute) exacerbation; D62 Acute posthemorrhagic anemia; N39.0 Urinary tract infection, site not specified; Z99.81 Dependence on supplemental oxygen; T45.515A Adverse effect of anticoagulants, initial encounter; S30.0XXA Contusion of lower back and pelvis, initial encounter; W19.XXXA Unspecified fall, initial encounter; R26.9 Unspecified abnormalities of gait and mobility; B96.4 Proteus (mirabilis) (morganii) as the cause of diseases classified elsewhere; I48.0 Paroxysmal atrial fibrillation; I10 Essential (primary) hypertension; I89.0 Lymphedema, not elsewhere classified; R19.7 Diarrhea, unspecified; K57.90 Diverticulosis of intestine, part unspecified, without perforation or abscess without bleeding; R91.8 Other nonspecific abnormal finding of lung field; Z66 Do not resuscitate; Z87.01 Personal history of pneumonia (recurrent); Z87.09 Personal history of other diseases of the respiratory system; Z87.891 Personal history of nicotine dependence; Z77.090 Contact with and (suspected) exposure to asbestos; Z79.01 Long term (current) use of anticoagulants; Z79.899 Other long term (current) drug therapy; Z88.0 Allergy status to penicillin; Z90.49 Acquired absence of other specified parts of digestive tract; Z98.890 Other specified postprocedural states; Z83.6 Family history of other diseases of the respiratory system; Z82.3 Family history of stroke